=== PATIENT | female | born 1930 | race Caucasian/White ===

== ENCOUNTER → 2017-01-02 | Outpatient (CLI) | payer BC, OTHER ==
[~2017-01-02] MED LIST: ACET-1311 PO; ACET325T96 PO; AMOX500C3 PO; ASPEC81 PO; ATEN-173 PO; ATOR-22 PO; BISA-16 PO; CHOL1000 PO; CHOL100010 PO; DOCU-94 PO; ESCI1TAB6 PO; KFLHP PO; LCTX PO; MECL1TAB40 PO; MIRT15TA PO; ONDA4TAB10 SL; OXYC-57 PO; OXYC-609 PO; OXYC5TAB PO; PANT40TA PO; POLY335019 PO; SIMV40TA4 PO; SNKUDL5 PO; TRAM-10 PO; WARF3TAB PO; WARF4TAB PO
[2017-01-02 12:28] LABS: INR 1.4 (0.9-1.1); PROTHROMBIN TIME (PATIENT) 15.5 SECONDS (9.0-12.0)
== END | disposition home or self-care (01) ==
LOC: C.LABWYN 12:40
PROVIDERS: ATTEND Family Medicine
DX: I82.431 Acute embolism and thrombosis of right popliteal vein (principal)

== ENCOUNTER → 2017-01-07 | Outpatient (CLI) | payer BC ==
[2017-01-07 12:41] LABS: INR 1.7 (0.9-1.1); PROTHROMBIN TIME (PATIENT) 18.1 SECONDS (9.0-12.0)
== END | disposition home or self-care (01) ==
LOC: C.LABWYN 16:39
PROVIDERS: ATTEND Family Medicine
DX: I82.431 Acute embolism and thrombosis of right popliteal vein (principal); Z79.01 Long term (current) use of anticoagulants

== ENCOUNTER 2017-01-08 02:37 | Emergency (ER) | payer BC ==
[~2017-01-08] VITALS: Ht 152.4 cm; Wt 55.2 kg
[~2017-01-08 02:37] MED LIST changes: -ACET-1311 PO; -AMOX500C3 PO; -ATOR-22 PO; -CHOL1000 PO; -DOCU-94 PO; -ESCI1TAB6 PO; -MECL1TAB40 PO; -MIRT15TA PO; -ONDA4TAB10 SL; -OXYC-57 PO; -OXYC-609 PO; -POLY335019 PO; -TRAM-10 PO; -WARF3TAB PO; -WARF4TAB PO
[2017-01-08 02:41] VITALS: TEMP 36.6; Ht 152.4 cm; Wt 55.2 kg
[2017-01-08] MEDS ORDERED: MIRT15TA PO (02:50)
[2017-01-08] MEDS ORDERED: POLY335019 PO (02:50)
[2017-01-08] MEDS ORDERED: OXYC-57 PO (02:52)
[2017-01-08] MEDS ORDERED: CHOL1000 PO (02:53)
[2017-01-08] MEDS ORDERED: DOCU-94 PO (02:56)
[2017-01-08] MEDS ORDERED: ESCI1TAB6 PO (02:56)
[2017-01-08] MEDS ORDERED: ATOR-22 PO (02:56)
[2017-01-08] MEDS ORDERED: MECL1TAB40 PO (02:57)
[2017-01-08] MEDS ORDERED: ACET-1311 PO (02:58)
[2017-01-08] MEDS ORDERED: AMOX500C3 PO (02:59)
[2017-01-08] MEDS ORDERED: SODIUM CHLORIDE 0.9% 500ML 500 ML IV STA (03:00)
[2017-01-08] MEDS ORDERED: ONDANSETRON INJ 2 MG/ML 2 ML VIAL IV STA (03:00)
--- NOTE | 2017-01-08 03:03 | EMERGENCY ROOM VISIT NOTE ---
History Report prepared by Lucioibgeovany: Nena De Leon Under the Supervision of: Dr. Kiran Hernadez M.D. First contact with patient: 02:39 Chief Complaint: GI ASSESSMENT Stated Complaint: VOMITING/DIARRHEA/NAUSEA Nursing Triage Summary: Patient with c/o of Nausea/vomitting/diarrhea since yesterday afternoon. Patient is from the [facility]. History of Present Illness The patient is an 86 year old female who presents to the Emergency Room with complaints of persistent nausea, vomiting and diarrhea that started yesterday evening after she ate dinner. She was brought to the ED via EMS from [facility], where she resides. She reports she has had "non-stop" diarrhea since earlier this evening and is clutching an emesis bag on exam. She denies any recent abdominal pain or traumatic head injuries. The patient admits she is on a daily low dose antibiotics for a history of UTI's. Source of History: patient Onset: yesterday afternoon Position: abdomen Timing: other (persistent) Associated Symptoms: No LOC, No abdominal pain Review of Systems See HPI for pertinent positives & negatives. A total of 10 systems reviewed and were otherwise negative. Past Medical & Surgical Medical Problems: (1) CAD (coronary artery disease) (2) Fall (3) HLD (hyperlipidemia) (4) HTN (hypertension) (5) Hypothyroidism (6) Migraines (7) Normal colonoscopy (8) NSTEMI (non-ST elevated myocardial infarction) (9) UTI (urinary tract infection) Surgical Problems: (1) H/O total hip arthroplasty (2) History of appendectomy (3) History of cataract surgery (4) S/P knee replacement (5) Status post right partial knee replacement Family History No pertinent family history Social History Smoking Status: Never Smoker Alcohol Use: none Drug Use: none Marital Status: Housing Status: half-way Occupation Status: retired Current/Historical Medications Scheduled Aspirin (Aspirin EC Low Dose), 81 MG PO DAILY Atenolol (Tenormin), 12.5 MG PO HS Atorvastatin (Lipitor), 20 MG PO DAILY Cephalexin Monohydrate (Cephalexin), 250 MG PO HS Cholecalciferol (Vitamin D3), 2,000 UNIT PO DAILY Docusate Sodium (Colace), 100 MG PO BID Escitalopram Oxalate (Lexapro), 5 MG PO DAILY Mirtazapine (Remeron), 15 MG PO HS Ondasetron Odt (Zofran Odt), 4 MG SL Q6H Oxycodone/Acetaminophen 5MG/325MG (Percocet 5MG/325MG), 1 TAB PO TID Pantoprazole (Protonix), 40 MG PO HS Polyethylene Glycol 3350 (Miralax), 17 GM PO DAILY Scheduled PRN Acetaminophen (Tylenol), 650 MG PO Q4 PRN for GENERAL DISCOMFORT Amoxicillin (Amoxil), 2,000 MG PO UD PRN for DENTAL APPT Meclizine HCl (Meclizine HCl), 1 TAB PO TID PRN for Dizziness or Vertigo Allergies Coded Allergies: Omeprazole (Unverified Allergy, Unknown, distal edema-none with pantoprozole, 01/08/17) Physical Exam Vital Signs Date Time Temp Pulse Resp B/P Pulse Ox O2 Delivery O2 Flow Rate FiO2 01/08/17 04:00 92 16 118/62 92 Room Air 01/08/17 02:46 93 01/08/17 02:41 36.6 90 16 145/64 95 Room Air Physical Exam GENERAL: Patient is a healthy-appearing well-nourished HEAD: Normocephalic atraumatic EYES: Ocular movements intact pupils equal and react to light OROPHARYNX mucous membranes are moist no exudates present no erythema or edema present NECK: Supple no nuchal rigidity CHEST: Good equal expansion LUNGS: Clear and equal to auscultation CARDIAC: Normal S1 and S2 ABDOMEN: Soft nontender no guarding BACK: No CVA tenderness EXTREMITIES: No pain upon palpation normal muscle strength in all groups no clubbing cyanosis or edema NEURO: Patient is following commands is answering questions appropriately. Alert and oriented x3 Cranial Nerves 2-12 grossly intact Medical Decision & Procedures ER Provider Diagnostic Interpretation: CT the abdomen pelvis: Fluid within nondistended stomach and bowel without wall thickening or surrounding inflammation is nonspecific and may be normal but can also be seen with gastroenteritis in the right clinical setting. No bowel obstruction. No appendicitis or other inflammatory changes of the bowel. Small hiatal hernia. Pancreas is unremarkable. Gallbladder is distended. Possible sludge a tiny stones at the dependent portion of the gallbladder. No wall thickening or surrounding fluid. Fatty liver. No renal calculi. No hydronephrosis. Few small cyst associated with the right and left kidney. Dense calcification involving anterolateral parenchymal of the left kidney measuring 12 mm. Small nonobstructing calyceal's calculus at the left lower renal pole. Left renal scarring at the posterior superior aspect. No obstructive uropathy. Laboratory Results 01/08/17 02:50 Red Blood Count 4.64, Mean Corpuscular Volume 95.9, Mean Corpuscular Hemoglobin 32.3, Mean Corpuscular Hemoglobin Concent 33.7, Mean Platelet Volume 9.5, Neutrophils (%) (Auto) 86.0, Lymphocytes (%) (Auto) 4.3, Monocytes (%) (Auto) 6.0, Eosinophils (%) (Auto) 3.4, Basophils (%) (Auto) 0.1, Neutrophils # (Auto) 10.97, Lymphocytes # (Auto) 0.55, Monocytes # (Auto) 0.77, Eosinophils # (Auto) 0.43, Basophils # (Auto) 0.01 01/08/17 02:50 Test 01/08/17 02:39 01/08/17 02:50 01/08/17 03:08 White Blood Count 12.76 K/uL (4.8-10.8) Red Blood Count 4.64 M/uL (4.2-5.4) Hemoglobin 15.0 g/dL (12.0-16.0) Hematocrit 44.5 % (37-47) Mean Corpuscular Volume 95.9 fL (80-100) Mean Corpuscular Hemoglobin 32.3 pg (25-34) Mean Corpuscular Hemoglobin Concent 33.7 g/dl (32-36) Platelet Count 298 K/uL (130-400) Mean Platelet Volume 9.5 fL (7.4-10.4) Neutrophils (%) (Auto) 86.0 % Lymphocytes (%) (Auto) 4.3 % Monocytes (%) (Auto) 6.0 % Eosinophils (%) (Auto) 3.4 % Basophils (%) (Auto) 0.1 % Neutrophils # (Auto) 10.97 K/uL (1.4-6.5) Lymphocytes # (Auto) 0.55 K/uL (1.2-3.4) Monocytes # (Auto) 0.77 K/uL (0.11-0.59) Eosinophils # (Auto) 0.43 K/uL (0-0.5) Basophils # (Auto) 0.01 K/uL (0-0.2) RDW Standard Deviation 55.0 fL (36.4-46.3) RDW Coefficient of Variation 15.7 % (11.5-14.5) Immature Granulocyte % (Auto) 0.2 % Immature Granulocyte # (Auto) 0.03 K/uL (0.00-0.02) Est Creatinine Clear Calc Drug Dose 34.4 ml/min Estimated GFR () 63.7 Estimated GFR (Non- 55.0 BUN/Creatinine Ratio 22.8 (10-20) Calcium Level 9.4 mg/dl (8.5-10.1) Total Bilirubin 0.7 mg/dl (0.2-1) Direct Bilirubin 0.1 mg/dl (0-0.2) Aspartate Amino Transf (AST/SGOT) 40 U/L (15-37) Alanine Aminotransferase (ALT/SGPT) 50 U/L (12-78) Alkaline Phosphatase 184 U/L (45-117) Total Creatine Kinase 72 U/L (26-192) Creatine Kinase MB 1.9 ng/ml (0.5-3.6) Creatine Kinase MB Ratio 2.6 (0-3.0) Troponin I < 0.015 ng/ml (0-0.045) Total Protein 8.2 gm/dl (6.4-8.2) Albumin 4.3 gm/dl (3.4-5.0) Lipase 90 U/L (73-393) Bedside Hemoglobin 15.6 g/dl (12.0-16.0) Bedside Hematocrit 46 % (37-47) Bedside Sodium 145 mEq/L (135-144) Bedside Potassium 3.3 mEq/L (3.3-5.0) Bedside Chloride 104 mEq/L (101-112) Bedside Total CO2 23 mEq/l (24-31) Anion Gap 21.0 mmol/L (16-25) Bedside Blood Urea Nitrogen 23 mg/dl (7-18) Bedside Creatinine 0.6 mg/dl (0.6-1.3) Bedside Glucose (other) 198 mg/dl (70-99) Bedside Ionized Calcium (Olivia) 1.09 mmol/l (1.12-1.32) Labs reviewed by ED physician. Medications Administered Medications (Trade) Dose Ordered Sig/Jamilah Route Start Time Stop Time Status Last Admin Dose Admin Sodium Chloride (Nss 500ml) 500 ml @ 999 mls/hr Q31M STAT IV 01/08/17 03:00 01/08/17 03:30 DC 01/08/17 03:09 999 MLS/HR Ondansetron HCl (Zofran Inj) 4 mg NOW STAT IV 01/08/17 03:00 01/08/17 03:03 DC 01/08/17 03:07 4 MG Potassium Chloride ([place] Ciel Elix) 40 meq NOW STAT PO 01/08/17 03:15 01/08/17 03:16 DC 01/08/17 03:56 40 MEQ ECG Indication: vomiting Rate (beats per minute): 93 Rhythm: sinus rhythm Findings: PVC, no acute ischemic change ED Course 0257: Past medical records reviewed. The patient was evaluated in room B6. A complete history and physical examination was performed. 0300: Zofran 4 mg IV, NSS 500 ml @ 999 mls/hr IV. 0315: Potassium Chloride 40 meq PO. Medical Decision Prior records/ancillary studies reviewed. Triage Nursing notes reviewed. Additional history obtained from the family. The patient's history was concerning for nausea, vomiting, diarrhea, and abdominal pain. Differential diagnosis: Etiologies such as gastroenteritis, food borne illness, infections, appendicitis , diverticulitis, inflammatory bowel disease, obstruction, GI bleed, biliary pathology, as well as others were entertained. This is an 86-year-old female who presents emergency department complaining of vomiting and diarrhea like symptoms. Despite the diarrhea and the multiple bouts today. The patient has been unable to produce a stool sample here in the emergency department. In addition serial abdominal examinations were performed on the patient in the emergency department and at no time did the patient exhibit a surgical abdomen or even abdominal tenderness or rate based on these findings an IV was established, patient given normal saline bolus as well as Zofran. Repeat examination revealed improvement patient's symptoms. In addition the patient was also able to keep down oral potassium. I gave the patient the option of being admitted to the hospital however she would like to try it at home. I stressed the need for a stool sample and she was written for a prescription for a stool sample. The patient was given oral Zofran to use at home however I stressed the need to return if she develops severe abdominal pain , weakness, fevers. Patient was in agreement with the treatment plan. I also stressed the use of probiotic yogurt for the diarrhea. Impression Primary Impression: Gastroenteritis Scribe Attestation The scribe's documentation has been prepared under my direction and personally reviewed by me in its entirety. I confirm that the note above accurately reflects all work, treatment, procedures, and medical decision making performed by me. Departure Information Prescriptions Ondasetron Odt (ZOFRAN ODT) 4 Mg Tab 4 MG SL Q6H for Nausea, #6 TAB Prov: Kiran Hernadez MD 01/08/17 Referrals Lachelle Regalado D.O. (PCP) Patient Instructions My [facility]
[2017-01-08 03:10] LABS: BASO % 0.1 %; BASO ABS # 0.01 K/uL (0-0.2); COMPLETE YES; EOS % 3.4 %; HEMATOCRIT 44.5 % (37-47); IG% 0.2 %; LYMPH % 4.3 %; LYMPH ABS # 0.55 K/uL (1.2-3.4); MEAN CELL VOLUME 95.9 fL (80-100); MEAN CORPUSCULAR HEMOGLOBIN 32.3 pg (25-34); MEAN CORPUSCULAR HGB CONC 33.7 g/dl (32-36); MEAN PLATELET VOLUME 9.5 fL (7.4-10.4); PLATELET COUNT 298 K/uL (130-400); RED BLOOD COUNT 4.64 M/uL (4.2-5.4); WHITE BLOOD COUNT 12.76 K/uL (4.8-10.8)
[2017-01-08] MEDS ORDERED: OPTIRAY 320 IV PRN (03:15)
[2017-01-08] MEDS ORDERED: POTASSIUM CHLORIDE 20 MEQ/15 ML UDC PO STA (03:15)
[2017-01-08 03:25] LABS: ISTAT CREATININE 0.6 mg/dl (0.6-1.3); ISTAT HEMOGLOBIN 15.6 g/dl (12.0-16.0); ISTAT IONIZED CALCIUM 1.09 mmol/l (1.12-1.32)
[2017-01-08 03:30] LABS: ALT/SGPT 50 U/L (12-78); AST/SGOT 40 U/L (15-37); BLOOD UREA NITROGEN 22 mg/dl (7-18); BUN/CREATININE RATIO 22.8 (10-20); CALCIUM 9.4 mg/dl (8.5-10.1); CARBON DIOXIDE 23 mmol/L (21-32); CHLORIDE 107 mmol/L (98-107); CREATININE 0.95 mg/dl (0.60-1.20); GLUCOSE 189 mg/dl (70-99); POTASSIUM 3.4 mmol/L (3.5-5.1); SODIUM 146 mmol/L (136-145)
[2017-01-08 03:35] LABS: ALKALINE PHOSPHATASE 184 U/L (45-117); CKMB/CK RATIO 2.6 (0-3.0)
[2017-01-08] MEDS ORDERED: ONDA4TAB10 SL (04:32)
[2017-01-08] MEDS ORDERED: ONDANSETRON HOME PACK 4MG OD TAB PO ONE (04:45)
[2017-01-08 05:04] VITALS: BP 123/67; PULSE 100; O2SAT 92
--- NOTE | 2017-01-08 07:02 | DIAGNOSTIC IMAGING REPORT ---
CT ABD/PELVIS IV CONTRAST ONLY CLINICAL HISTORY: Abdominal pain and diffuse vomiting COMPARISON STUDY: 07/22/2016 TECHNIQUE: Following the IV administration of 92 mL of Optiray-320, CT scan of the abdomen and pelvis was performed from the lung bases to the proximal femurs. Images are reviewed in the axial, sagittal, and coronal planes. IV contrast was administered without complication. CT DOSE: 323.36 mGy.cm FINDINGS: Lower chest: The heart is normal in size and configuration, without pericardial effusion. The lung bases and pleural spaces are clear. Liver: There is mild hepatic steatosis. No focal masses are visualized. Gallbladder: There is minimal gallbladder distention. There is trace sludge at the dependent gallbladder. Spleen: Normal in size and attenuation. Pancreas: Unremarkable. Adrenal glands: Unremarkable. Kidneys: There are left renal calculi present, the largest of which measures 1 cm. There is left renal cortical scarring. There is a 14 mm lower pole left renal cyst. There is a 6 mm right renal cyst. There is no hydronephrosis. Bowel: There are no findings to indicate acute appendicitis. There are no findings to indicate acute diverticulitis. There are multiple fluid-filled bowel loops. There are no transition zones indicate a high-grade bowel obstruction. Peritoneum: There is no intraperitoneal free air or abdominal ascites. Vasculature: The abdominal aorta is normal in course and caliber. Adenopathy: None. Pelvic viscera: The uterus appears surgically absent Skeletal structures: There are postsurgical changes of a bipolar left hip arthroplasty. There are postsurgical changes present within the lumbar spine. IMPRESSION: 1. Left-sided nephrolithiasis. No evidence of hydronephrosis 2. Mildly distended gallbladder with suspected trace sludge/calculi 3. Fluid-filled small bowel loops, but no current evidence of obstruction. 4. No evidence of acute appendicitis. No evidence of acute diverticulitis. Electronically signed by: Eliel Adkins M.D. 01/08/2017 7:01 AM Dictated Date/Time: 01/08/2017 6:50 AM
[2017-03-15] MEDS ORDERED: TRAM-10 PO (17:39)
[2017-03-15] MEDS ORDERED: WARF3TAB PO (17:39)
== END 2017-01-08 05:05 | disposition home or self-care (01) ==
LOC: EDBD 02:37 → C.EDB 02:38
DX: K52.9 Noninfective gastroenteritis and colitis, unspecified (principal); I25.10 Atherosclerotic heart disease of native coronary artery without angina pectoris; E78.5 Hyperlipidemia, unspecified; I10 Essential (primary) hypertension; E03.9 Hypothyroidism, unspecified; I25.2 Old myocardial infarction; Z96.643 Presence of artificial hip joint, bilateral; Z96.659 Presence of unspecified artificial knee joint; Z79.82 Long term (current) use of aspirin

== ENCOUNTER → 2017-01-16 | Outpatient (CLI) | payer BC ==
[~2017-01-16] MED LIST changes: +ACET-1311 PO; -ACET325T96 PO; +AMOX500C3 PO; +ATOR-22 PO; -BISA-16 PO; +CHOL1000 PO; -CHOL100010 PO; +CITA20TA4 PO; +DOCU-94 PO; +ESCI1TAB6 PO; +KFL/250 PO; -LCTX PO; +MECL1TAB40 PO; +MIRT15TA PO; +ONDA4TAB10 SL; +OXYC-57 PO; +OXYC-609 PO; -OXYC5TAB PO; +POLY335019 PO; -SIMV40TA4 PO; -SNKUDL5 PO; +TRAM-10 PO; +WARF3TAB PO; +WARF4TAB PO
[2017-01-16 13:38] LABS: INR 2.2 (0.9-1.1); PROTHROMBIN TIME (PATIENT) 24.8 SECONDS (9.0-12.0)
== END | disposition home or self-care (01) ==
LOC: C.LABWYN 06:32
PROVIDERS: ATTEND Family Medicine
DX: I82.409 Acute embolism and thrombosis of unspecified deep veins of unspecified lower extremity (principal)

== ENCOUNTER → 2017-01-23 | Outpatient (CLI) | payer BC ==
[~2017-01-23] MED LIST changes: -CITA20TA4 PO; -KFL/250 PO
[2017-01-23 12:12] LABS: INR 3.1 (0.9-1.1); PROTHROMBIN TIME (PATIENT) 35.3 SECONDS (9.0-12.0)
== END | disposition home or self-care (01) ==
LOC: C.LABWYN 12:21
PROVIDERS: ATTEND Family Medicine
DX: Z51.81 Encounter for therapeutic drug level monitoring (principal); Z79.01 Long term (current) use of anticoagulants

== ENCOUNTER → 2017-01-30 | Outpatient (CLI) | payer BC ==
[~2017-01-30] MED LIST changes: +CITA20TA4 PO; +KFL/250 PO
[2017-01-30 12:09] LABS: INR 2.2 (0.9-1.1); PROTHROMBIN TIME (PATIENT) 24.8 SECONDS (9.0-12.0)
== END | disposition home or self-care (01) ==
LOC: C.LABWYN 13:42
PROVIDERS: ATTEND Internal Medicine
DX: Z00.00 Encounter for general adult medical examination without abnormal findings (principal)

== ENCOUNTER → 2017-02-20 | Outpatient (CLI) | payer BC ==
[2017-02-20 12:11] LABS: INR 1.7 (0.9-1.1); PROTHROMBIN TIME (PATIENT) 18.4 SECONDS (9.0-12.0)
== END | disposition home or self-care (01) ==
LOC: C.LABWYN 06:20
PROVIDERS: ATTEND Internal Medicine
DX: Z51.81 Encounter for therapeutic drug level monitoring (principal); Z79.01 Long term (current) use of anticoagulants

== ENCOUNTER → 2017-03-13 | Outpatient (CLI) | payer BC ==
[2017-03-13 12:24] LABS: INR 1.9 (0.9-1.1); PROTHROMBIN TIME (PATIENT) 20.4 SECONDS (9.0-12.0)
== END | disposition home or self-care (01) ==
LOC: C.LABWYN 12:48
PROVIDERS: ATTEND Internal Medicine
DX: I82.409 Acute embolism and thrombosis of unspecified deep veins of unspecified lower extremity (principal); C22.0 Liver cell carcinoma

== ENCOUNTER 2017-03-15 17:15 | Emergency (ER) | payer BC ==
[~2017-03-15] VITALS: Ht 152.4 cm; Wt 61.9 kg
[~2017-03-15 17:15] MED LIST changes: -ACET-1311 PO; -AMOX500C3 PO; -ASPEC81 PO; -ATEN-173 PO; -ATOR-22 PO; -CHOL1000 PO; -CITA20TA4 PO; -DOCU-94 PO; -KFL/250 PO; -MECL1TAB40 PO; -MIRT15TA PO; -OXYC-609 PO; -PANT40TA PO; -POLY335019 PO; -TRAM-10 PO; -WARF3TAB PO; -WARF4TAB PO
[2017-03-15 17:19] VITALS: TEMP 36.8; Ht 152.4 cm; Wt 61.9 kg
[2017-03-15] MEDS ORDERED: WARF4TAB PO (17:39)
[2017-03-15] MEDS ORDERED: OXYC-609 PO (17:39)
[2017-03-15] MEDS ORDERED: ONDA4TAB10 SL (17:39)
--- NOTE | 2017-03-15 17:56 | DIAGNOSTIC IMAGING REPORT ---
SINGLE VIEW PELVIS; SINGLE VIEW LEFT HIP CLINICAL HISTORY: Left pelvic pain. FINDINGS: An AP pelvic radiograph and an AP view of the left hip are compared to study dated 05/17/2016. The skeletal structures are osteopenic. There is no radiographic evidence of fracture. A left hip arthroplasty is in near-anatomic alignment. No periprosthetic lucency is identified. Heterotopic bone formation is again seen superior to the greater trochanter of the left femur. Moderate arthritic change is seen in the right hip. There is degenerative sclerosis of the pubic symphysis and sacroiliac joints. Lumbosacral spondylosis and fusion is partially imaged. There is a nonobstructed abdominal bowel gas pattern. The overlying soft tissues are within normal limits. IMPRESSION: No acute bony abnormality is seen in the hips or pelvis. Electronically signed by: Souleymane Saleem M.D. 03/15/2017 5:55 PM Dictated Date/Time: 03/15/2017 5:53 PM
--- NOTE | 2017-03-15 19:51 | DIAGNOSTIC IMAGING REPORT ---
CT SCAN OF THE LUMBAR SPINE WITHOUT IV CONTRAST CLINICAL HISTORY: Chronic low back pain. COMPARISON STUDY: Abdominal CT dated 01/08/[address] scan of the lumbar spine dated 01/12/2008. TECHNIQUE: CT scan of the lumbar spine is performed from the lower thoracic spine to the sacrum. Images are reviewed in the axial, sagittal, and coronal planes. IV contrast was not administered for this examination. CT DOSE: 584.87 mGy.cm FINDINGS: The skeletal structures are osteopenic. There is no evidence of fracture or malalignment. Vertebral body height is maintained throughout the lumbar spine. There is minimal anterolisthesis at L4-L5, similar to previous. There are postoperative changes from laminectomy and posterior fusion at L4-L5, unchanged. The remaining spinous processes and the transverse processes are intact. No lytic or blastic lesions are seen. There is no evidence of spondylolysis. There has been discectomy at L4-L5. The remaining disc spaces appear preserved. No large disc herniation is identified. Moderate facet arthropathy is noted in the mid to lower lumbar region. The visualized sacrum and bony pelvis appear intact. There is moderate atherosclerotic calcification of the abdominal aorta which is normal in caliber. The paraspinous soft tissues are within normal limits, noting mild fatty atrophy of the paraspinous musculature. Postoperative change is again seen posteriorly at L4-L5. There are numerous nonobstructing left renal calculi which measure up to 13 mm. No hydronephrosis is seen. IMPRESSION: 1. No acute bony abnormality is seen involving the lumbosacral spine. 2. Osteopenia with postoperative and spondylotic change as above. 3. Nonobstructing left renal calculi. Dictated: 03/15/2017 5:58 PM Transcribed: 03/15/2017 7:51 PM HEATH_Santy Electronically signed by: Souleymane Saleem M.D. 03/15/2017 7:52 PM Dictated Date/Time: 03/15/2017 5:58 PM
--- NOTE | 2017-03-15 20:21 | EMERGENCY ROOM VISIT NOTE ---
History Report prepared by Eldon: Rekha Navarro Under the Supervision of: Dr. Kiran Oden D.O. First contact with patient: 17:27 Chief Complaint: HIP PAIN Stated Complaint: LF HIP PAIN History of Present Illness The patient is an 86 year old female who presents to the Emergency Room with complaints of persistent lower back pain that worsened over the last few days. She currently rates her discomfort as a 10/10 in severity. The patient states that she has a history of two lower back surgeries and a right knee replacement. She states that her pain radiates from her lower back down into her left leg. The patient denies any recent injury. She states that she has been in bed most of the time or in a recliner, noting that she has not been moving much due to the pain. Source of History: patient Onset: past few days Position: back (lower) Symptom Intensity: 10/10 Timing: worsening, other (persistent) Note: Associated Symptoms: left leg pain Review of Systems See HPI for pertinent positives & negatives. A total of 10 systems reviewed and were otherwise negative. Past Medical & Surgical Medical Problems: (1) CAD (coronary artery disease) (2) Fall (3) HLD (hyperlipidemia) (4) HTN (hypertension) (5) Hypothyroidism (6) Migraines (7) Normal colonoscopy (8) NSTEMI (non-ST elevated myocardial infarction) (9) UTI (urinary tract infection) Surgical Problems: (1) H/O total hip arthroplasty (2) History of appendectomy (3) History of cataract surgery (4) S/P knee replacement (5) Status post right partial knee replacement Family History No pertinent family history Social History Smoking Status: Never Smoker Alcohol Use: none Drug Use: none Marital Status: Housing Status: long-term Occupation Status: retired Current/Historical Medications Scheduled Aspirin (Aspirin EC Low Dose), 81 MG PO QAM Atenolol (Tenormin), 12.5 MG PO HS Atorvastatin (Lipitor), 20 MG PO HS Cephalexin Monohydrate (Cephalexin), 250 MG PO HS Cholecalciferol (Vitamin D3), 2,000 UNIT PO HS Docusate Sodium (Colace), 100 MG PO BID Escitalopram Oxalate (Lexapro), 5 MG PO QAM Mirtazapine (Remeron), 15 MG PO HS Pantoprazole (Protonix), 40 MG PO HS Polyethylene Glycol 3350 (Miralax), 17 GM PO QAM Warfarin Sodium (Coumadin), 3 MG PO 6XWK Warfarin Sodium (Coumadin), 4 MG PO WK Scheduled PRN Acetaminophen (Tylenol), 650 MG PO Q4H PRN for GENERAL DISCOMFORT Amoxicillin (Amoxil), 2,000 MG PO UD PRN for DENTAL APPT Meclizine HCl (Meclizine HCl), 1 TAB PO TID PRN for Dizziness or Vertigo Ondasetron Odt (Zofran Odt), 4 MG SL Q6H PRN for Nausea or Vomiting Oxycodone HCl (Oxycodone HCl), 7.5 MG PO Q6H PRN for Pain Tramadol (Ultram), 50 MG PO Q4H PRN for Pain Allergies Coded Allergies: Omeprazole (Verified Allergy, Unknown, distal edema-none with pantoprozole , 03/15/17) Physical Exam Vital Signs Date Time Temp Pulse Resp B/P Pulse Ox O2 Delivery O2 Flow Rate FiO2 03/15/17 18:51 74 109/58 93 03/15/17 17:19 36.8 67 18 119/65 93 Room Air Physical Exam CONSTITUTIONAL/VITAL SIGNS: Reviewed / noted above. GENERAL: Non-toxic in appearance. INTEGUMENTARY: Warm, dry, and [place]. HEAD: Normocephalic. EYES: without scleral icterus or trauma. ENT/OROPHARYNX: clear and moist. LYMPHADENOPATHY/NECK: Is supple without lymphadenopathy or meningismus. RESPIRATORY: Lungs clear and equal. CARDIOVASCULAR: Regular rate and rhythm. GI/ABDOMEN: Soft and nontender. No organomegaly or pulsatile mass. No rebound or guarding. Normal bowel sounds. EXTREMITIES: Discomfort noted to movement of left hip. Warm and well perfused. BACK: Discomfort with sitting position, tenderness to the lumbar region, no obvious palpable abnormality, no visible abnormality. No CVA tenderness. NEUROLOGICAL: Intact without focal deficits. PSYCHIATRIC: normal affect. MUSCULOSKELETAL: Normally developed with good muscle tone. Medical Decision & Procedures ER Provider Diagnostic Interpretation: Radiology results as stated below per my review and radiologist interpretation: SINGLE VIEW PELVIS; SINGLE VIEW LEFT HIP CLINICAL HISTORY: Left pelvic pain. FINDINGS: An AP pelvic radiograph and an AP view of the left hip are compared to study dated 05/17/2016. The skeletal structures are osteopenic. There is no radiographic evidence of fracture. A left hip arthroplasty is in near-anatomic alignment. No periprosthetic lucency is identified. Heterotopic bone formation is again seen superior to the greater trochanter of the left femur. Moderate arthritic change is seen in the right hip. There is degenerative sclerosis of the pubic symphysis and sacroiliac joints. Lumbosacral spondylosis and fusion is partially imaged. There is a nonobstructed abdominal bowel gas pattern. The overlying soft tissues are within normal limits. IMPRESSION: No acute bony abnormality is seen in the hips or pelvis. Electronically signed by: Souleymane Saleem M.D. 03/15/2017 5:55 PM Dictated Date/Time: 03/15/2017 5:[address] SCAN OF THE LUMBAR SPINE WITHOUT IV CONTRAST CLINICAL HISTORY: Chronic low back pain. COMPARISON STUDY: Abdominal CT dated 01/08/[address] scan of the lumbar spine dated 01/12/2008. TECHNIQUE: CT scan of the lumbar spine is performed from the lower thoracic spine to the sacrum. Images are reviewed in the axial, sagittal, and coronal planes. IV contrast was not administered for this examination. CT DOSE: 584.87 mGy.cm FINDINGS: The skeletal structures are osteopenic. There is no evidence of fracture or malalignment. Vertebral body height is maintained throughout the lumbar spine. There is minimal anterolisthesis at L4-L5, similar to previous. There are postoperative changes from laminectomy and posterior fusion at L4-L5, unchanged. The remaining spinous processes and the transverse processes are intact. No lytic or blastic lesions are seen. There is no evidence of spondylolysis. There has been discectomy at L4-L5. The remaining disc spaces appear preserved. No large disc herniation is identified. Moderate facet arthropathy is noted in the mid to lower lumbar region. The visualized sacrum and bony pelvis appear intact. There is moderate atherosclerotic calcification of the abdominal aorta which is normal in caliber. The paraspinous soft tissues are within normal limits, noting mild fatty atrophy of the paraspinous musculature. Postoperative change is again seen posteriorly at L4-L5. There are numerous nonobstructing left renal calculi which measure up to 13 mm. No hydronephrosis is seen. IMPRESSION: 1. No acute bony abnormality is seen involving the lumbosacral spine. 2. Osteopenia with postoperative and spondylotic change as above. 3. Nonobstructing left renal calculi. Dictated: 03/15/2017 5:58 PM Transcribed: 03/15/2017 7:51 PM Kaveh Electronically signed by: Souleymane Saleem M.D. 03/15/2017 7:52 PM Dictated Date/Time: 03/15/2017 5:58 PM ED Course 1730: Previous medical records were reviewed. The patient was evaluated in room B4B. A complete history and physical examination was performed. 2018: I reevaluated the patient and she is resting comfortably. I discussed the exam findings with her and I discussed the treatment plan. She verbalized complete understanding and agreement. She is ready to go home. Medical Decision Differential diagnosis: Etiologies such as fracture, dislocation, neurovascular compromise, compartment syndrome, soft tissue injury, as well as others were entertained. This is a 86-year-old female who presents to the ED with a chief complaint of low back and left hip pain. The patient states that she has had the symptoms for a while. She lives alone local nursing facility. The patient reports that her symptoms have increased over the past several days. She has had some x- rays did not reveal any abnormality. She is currently on Percocet. The patient states that she has been lying in her bed more than being upright and this has increased her pain. She denies any fevers or chills. Denies any urinary symptoms or abdominal pains. Her pain is worse with movement and sitting up in bed. Exam revealed some tenderness to palpation the lumbar region. She also has some discomfort with movement of the left hip. X-ray of the left hip did not show any acute abnormality. CT scan lumbar spine reveals no acute process. The patient was told the results the test. She is felt to be stable for discharge. She'll be discharged back to the nursing facility. Impression Primary Impression: Low back pain Scribe Attestation The scribe's documentation has been prepared under my direction and personally reviewed by me in its entirety. I confirm that the note above accurately reflects all work, treatment, procedures, and medical decision making performed by me. Departure Information Dispostion Home / Self-Care [facility] Patient Instructions My [facility] Additional Instructions Follow-up with your doctor for further care and evaluation in 1-2 days. Return to the emergency department for worsening or new symptoms or any concerns. You have been examined and treated today on an emergency basis only. This is not a substitute for, or an effort to provide, complete comprehensive medical care. It is impossible to recognize and treat all injuries or illnesses in a single emergency department visit. It is therefore important that you follow up closely with your doctor. Call as soon as possible for an appointment. Physical therapy may be beneficial.
[2017-03-15 20:40] VITALS: BP 124/72; PULSE 84; O2SAT 96
[2017-08-22] MEDS ORDERED: POLY335019 PO (02:50)
[2017-08-22] MEDS ORDERED: MIRT15TA PO (02:50)
[2017-08-22] MEDS ORDERED: CHOL1000 PO (02:53)
[2017-08-22] MEDS ORDERED: DOCU-94 PO (02:56)
[2017-08-22] MEDS ORDERED: ATOR-22 PO (02:56)
[2017-08-22] MEDS ORDERED: MECL1TAB40 PO (02:57)
[2017-08-22] MEDS ORDERED: ACET-1311 PO (02:58)
[2017-08-22] MEDS ORDERED: AMOX500C3 PO (02:59)
[2017-08-22] MEDS ORDERED: ATEN-173 PO (13:23)
[2017-08-22] MEDS ORDERED: ASPEC81 PO (13:57)
== END 2017-03-15 20:40 | disposition home or self-care (01) ==
LOC: EDBD 17:15 → C.EDB 17:16
DX: M54.5 Low back pain (principal); Z96.651 Presence of right artificial knee joint; I25.10 Atherosclerotic heart disease of native coronary artery without angina pectoris; E78.5 Hyperlipidemia, unspecified; I25.2 Old myocardial infarction; Z87.440 Personal history of urinary (tract) infections; Z79.82 Long term (current) use of aspirin

== ENCOUNTER → 2017-03-25 | Outpatient (CLI) | payer BC ==
[~2017-03-25] MED LIST changes: +ACET-1311 PO; +AMOX500C3 PO; +ASPEC81 PO; +ATEN-173 PO; +ATOR-22 PO; +CHOL1000 PO; +CITA20TA4 PO; +DOCU-94 PO; +KFL/250 PO; +MECL1TAB40 PO; +MIRT15TA PO; +OXYC-609 PO; +PANT40TA PO; +POLY335019 PO; +TRAM-10 PO; +WARF3TAB PO; +WARF4TAB PO
[2017-03-25 13:08] LABS: PROTHROMBIN TIME (PATIENT) 46.3 SECONDS (9.0-12.0)
[2017-03-25 13:19] LABS: INR 4.1 (0.9-1.1)
== END | disposition home or self-care (01) ==
LOC: C.LABWYN 10:19
PROVIDERS: ATTEND Internal Medicine
DX: I82.409 Acute embolism and thrombosis of unspecified deep veins of unspecified lower extremity (principal)

== ENCOUNTER → 2017-03-26 | Outpatient (CLI) | payer BC ==
[2017-03-26 06:42] LABS: INR 2.9 (0.9-1.1)
== END | disposition home or self-care (01) ==
LOC: C.LABWYN 10:02
PROVIDERS: ATTEND Internal Medicine
DX: I82.409 Acute embolism and thrombosis of unspecified deep veins of unspecified lower extremity (principal); C22.0 Liver cell carcinoma

== ENCOUNTER → 2017-03-28 | Outpatient (CLI) | payer BC ==
[2017-03-28 09:33] LABS: INR 2.1 (0.9-1.1); PROTHROMBIN TIME (PATIENT) 23.3 SECONDS (9.0-12.0)
== END | disposition home or self-care (01) ==
LOC: C.LABWYN 08:35
PROVIDERS: ATTEND Internal Medicine
DX: I82.409 Acute embolism and thrombosis of unspecified deep veins of unspecified lower extremity (principal)

== ENCOUNTER → 2017-04-03 | Outpatient (CLI) | payer BC ==
[~2017-04-03] MED LIST changes: -CITA20TA4 PO; -KFL/250 PO; -OXYC-57 PO
[2017-04-03 12:34] LABS: INR 2.9 (0.9-1.1); PROTHROMBIN TIME (PATIENT) 32.2 SECONDS (9.0-12.0)
== END | disposition home or self-care (01) ==
LOC: C.LABWYN 06:18
PROVIDERS: ATTEND Internal Medicine
DX: I82.409 Acute embolism and thrombosis of unspecified deep veins of unspecified lower extremity (principal)

== ENCOUNTER → 2017-04-17 | Outpatient (CLI) | payer BC ==
[~2017-04-17] MED LIST changes: +CITA20TA4 PO; +KFL/250 PO; +OXYC-57 PO
[2017-04-17 12:17] LABS: INR 1.4 (0.9-1.1); PROTHROMBIN TIME (PATIENT) 15.4 SECONDS (9.0-12.0)
== END | disposition home or self-care (01) ==
LOC: C.LABWYN 12:02
PROVIDERS: ATTEND Internal Medicine
DX: I48.91 Unspecified atrial fibrillation (principal); Z86.718 Personal history of other venous thrombosis and embolism

== ENCOUNTER → 2017-04-24 | Outpatient (CLI) | payer BC ==
[2017-04-24 12:51] LABS: INR 2.8 (0.9-1.1); PROTHROMBIN TIME (PATIENT) 30.8 SECONDS (9.0-12.0)
== END | disposition home or self-care (01) ==
LOC: C.LABWYN 14:43
PROVIDERS: ATTEND Internal Medicine
DX: Z51.81 Encounter for therapeutic drug level monitoring (principal); Z79.01 Long term (current) use of anticoagulants; Z86.718 Personal history of other venous thrombosis and embolism

== ENCOUNTER → 2017-05-08 | Outpatient (CLI) | payer BC ==
[~2017-05-08] MED LIST changes: -CITA20TA4 PO; -KFL/250 PO; -OXYC-57 PO
[2017-05-08 12:40] LABS: PROTHROMBIN TIME (PATIENT) 46.5 SECONDS (9.0-12.0)
[2017-05-08 12:42] LABS: INR 4.1 (0.9-1.1)
== END | disposition home or self-care (01) ==
LOC: C.LABWYN 13:27
PROVIDERS: ATTEND Internal Medicine
DX: I48.91 Unspecified atrial fibrillation (principal); Z86.718 Personal history of other venous thrombosis and embolism

== ENCOUNTER → 2017-05-10 | Outpatient (CLI) | payer BC ==
[2017-05-10 09:20] LABS: INR 2.5 (0.9-1.1)
== END | disposition home or self-care (01) ==
LOC: C.LAB 08:48
PROVIDERS: ATTEND Internal Medicine
DX: R35.0 Frequency of micturition (principal); I48.91 Unspecified atrial fibrillation

== ENCOUNTER → 2017-05-13 | Outpatient (CLI) | payer BC ==
[2017-05-13 12:38] LABS: INR 1.6 (0.9-1.1); PROTHROMBIN TIME (PATIENT) 17.4 SECONDS (9.0-12.0)
== END | disposition home or self-care (01) ==
LOC: C.LABWYN 17:43
PROVIDERS: ATTEND Internal Medicine
DX: I48.91 Unspecified atrial fibrillation (principal); Z86.718 Personal history of other venous thrombosis and embolism

== ENCOUNTER → 2017-05-20 | Outpatient (CLI) | payer BC ==
[2017-05-20 12:29] LABS: INR 2.7 (0.9-1.1); PROTHROMBIN TIME (PATIENT) 30.4 SECONDS (9.0-12.0)
== END | disposition home or self-care (01) ==
LOC: C.LABWYN 14:42
PROVIDERS: ATTEND Internal Medicine
DX: Z51.81 Encounter for therapeutic drug level monitoring (principal); Z79.01 Long term (current) use of anticoagulants

== ENCOUNTER → 2017-05-27 | Outpatient (CLI) | payer BC ==
[2017-05-27 12:28] LABS: INR 2.9 (0.9-1.1); PROTHROMBIN TIME (PATIENT) 31.9 SECONDS (9.0-12.0)
== END | disposition home or self-care (01) ==
LOC: C.LABWYN 13:06
PROVIDERS: ATTEND Internal Medicine
DX: I48.91 Unspecified atrial fibrillation (principal)

== ENCOUNTER → 2017-06-03 | Outpatient (CLI) | payer BC ==
[2017-06-03 13:18] LABS: HEMATOCRIT 35.3 % (37-47); MEAN CELL VOLUME 98.6 fL (80-100); MEAN CORPUSCULAR HEMOGLOBIN 28.8 pg (25-34); MEAN CORPUSCULAR HGB CONC 29.2 g/dl (32-36); MEAN PLATELET VOLUME 9.2 fL (7.4-10.4); PLATELET COUNT 224 K/uL (130-400); RED BLOOD COUNT 3.58 M/uL (4.2-5.4); WHITE BLOOD COUNT 5.28 K/uL (4.8-10.8)
[2017-06-03 13:24] LABS: PROTHROMBIN TIME (PATIENT) 33.9 SECONDS (9.0-12.0)
[2017-06-03 13:31] LABS: BLOOD UREA NITROGEN 20 mg/dl (7-18); BUN/CREATININE RATIO 35.7 (10-20); CALCIUM 8.4 mg/dl (8.5-10.1); CARBON DIOXIDE 29 mmol/L (21-32); CHLORIDE 115 mmol/L (98-107); CREATININE 0.57 mg/dl (0.60-1.20); GLUCOSE 72 mg/dl (70-99); POTASSIUM 3.9 mmol/L (3.5-5.1); SODIUM 148 mmol/L (136-145)
== END | disposition home or self-care (01) ==
LOC: C.LABWYN 10:16
PROVIDERS: ATTEND Nurse Practitioner Adult Health
DX: M81.0 Age-related osteoporosis without current pathological fracture (principal); R53.83 Other fatigue; E03.9 Hypothyroidism, unspecified; I48.91 Unspecified atrial fibrillation

== ENCOUNTER → 2017-06-11 | Outpatient (CLI) | payer BC ==
[2017-06-11 07:57] LABS: INR 2.8 (0.9-1.1); PROTHROMBIN TIME (PATIENT) 31.5 SECONDS (9.0-12.0)
== END | disposition home or self-care (01) ==
LOC: C.LABWYN 07:36
PROVIDERS: ATTEND Dentist Oral and Maxillofacial Surgery
DX: K03.81 Cracked tooth (principal); K02.62 Dental caries on smooth surface penetrating into dentin

== ENCOUNTER → 2017-06-17 | Outpatient (CLI) | payer BC ==
[2017-06-17 12:41] LABS: INR 2.5 (0.9-1.1); PROTHROMBIN TIME (PATIENT) 27.7 SECONDS (9.0-12.0)
[2017-06-17 13:00] LABS: HEMATOCRIT 34.9 % (37-47); MEAN CELL VOLUME 96.4 fL (80-100); MEAN CORPUSCULAR HGB CONC 30.1 g/dl (32-36); MEAN PLATELET VOLUME 9.2 fL (7.4-10.4); PLATELET COUNT 227 K/uL (130-400); RED BLOOD COUNT 3.62 M/uL (4.2-5.4)
[2017-06-17 13:15] LABS: BLOOD UREA NITROGEN 12 mg/dl (7-18); BUN/CREATININE RATIO 19.2 (10-20); CALCIUM 8.3 mg/dl (8.5-10.1); CARBON DIOXIDE 24 mmol/L (21-32); CHLORIDE 115 mmol/L (98-107); CREATININE 0.62 mg/dl (0.60-1.20); GLUCOSE 85 mg/dl (70-99); POTASSIUM 3.5 mmol/L (3.5-5.1); SODIUM 148 mmol/L (136-145)
== END | disposition home or self-care (01) ==
LOC: C.LABWYN 15:19
PROVIDERS: ATTEND Internal Medicine
DX: I48.91 Unspecified atrial fibrillation (principal); Z86.718 Personal history of other venous thrombosis and embolism

== ENCOUNTER → 2017-06-24 | Outpatient (CLI) | payer BC ==
[2017-06-24 12:32] LABS: INR 3.4 (0.9-1.1); PROTHROMBIN TIME (PATIENT) 38.1 SECONDS (9.0-12.0)
== END | disposition home or self-care (01) ==
LOC: C.LABWYN 12:47
PROVIDERS: ATTEND Internal Medicine
DX: I48.91 Unspecified atrial fibrillation (principal)

== ENCOUNTER → 2017-06-25 | Outpatient (CLI) | payer BC ==
[2017-06-25 08:26] LABS: INR 3.2 (0.9-1.1)
== END | disposition home or self-care (01) ==
LOC: C.LABWYN 07:56
PROVIDERS: ATTEND Internal Medicine
DX: K03.81 Cracked tooth (principal); K02.62 Dental caries on smooth surface penetrating into dentin

== ENCOUNTER → 2017-06-27 | Outpatient (CLI) | payer BC ==
[~2017-06-27] MED LIST changes: -KFLHP PO
[2017-06-27 08:41] LABS: INR 1.6 (0.9-1.1); PROTHROMBIN TIME (PATIENT) 17.1 SECONDS (9.0-12.0)
== END | disposition home or self-care (01) ==
LOC: C.LABWYN 07:43
PROVIDERS: ATTEND Internal Medicine
DX: I48.91 Unspecified atrial fibrillation (principal); Z86.718 Personal history of other venous thrombosis and embolism

== ENCOUNTER → 2017-06-30 | Outpatient (CLI) | payer BC ==
[2017-06-30 08:17] LABS: INR 1.7 (0.9-1.1)
== END | disposition home or self-care (01) ==
LOC: C.LABWYN 07:51
PROVIDERS: ATTEND Internal Medicine
DX: Z79.01 Long term (current) use of anticoagulants (principal); Z51.81 Encounter for therapeutic drug level monitoring

== ENCOUNTER → 2017-07-08 | Outpatient (CLI) | payer BC ==
[2017-07-08 12:43] LABS: PROTHROMBIN TIME (PATIENT) 46.2 SECONDS (9.0-12.0)
[2017-07-08 12:45] LABS: INR 4.1 (0.9-1.1)
== END | disposition home or self-care (01) ==
LOC: C.LABWYN 05:35
PROVIDERS: ATTEND Internal Medicine
DX: I48.91 Unspecified atrial fibrillation (principal)

== ENCOUNTER → 2017-07-11 | Outpatient (CLI) | payer BC ==
[2017-07-11 08:28] LABS: INR 1.7 (0.9-1.1); PROTHROMBIN TIME (PATIENT) 18.7 SECONDS (9.0-12.0)
== END | disposition home or self-care (01) ==
LOC: C.LABWYN 07:43
PROVIDERS: ATTEND Internal Medicine
DX: I48.91 Unspecified atrial fibrillation (principal)

== ENCOUNTER → 2017-07-24 | Outpatient (CLI) | payer BC ==
[2017-07-24 12:50] LABS: INR 2.2 (0.9-1.1); PROTHROMBIN TIME (PATIENT) 24.8 SECONDS (9.0-12.0)
== END | disposition home or self-care (01) ==
LOC: C.LABWYN 13:15
PROVIDERS: ATTEND Internal Medicine
DX: I48.91 Unspecified atrial fibrillation (principal); Z79.01 Long term (current) use of anticoagulants

== ENCOUNTER → 2017-07-28 | Outpatient (CLI) | payer BC ==
[2017-07-28 08:38] LABS: INR 2.5 (0.9-1.1); PROTHROMBIN TIME (PATIENT) 28.1 SECONDS (9.0-12.0)
== END | disposition home or self-care (01) ==
LOC: C.LABWYN 08:04
PROVIDERS: ATTEND Internal Medicine
DX: I48.91 Unspecified atrial fibrillation (principal)

== ENCOUNTER → 2017-08-12 | Outpatient (CLI) | payer BC ==
[2017-08-12 13:02] LABS: INR 2.8 (0.9-1.1); PROTHROMBIN TIME (PATIENT) 31.3 SECONDS (9.0-12.0)
== END | disposition home or self-care (01) ==
LOC: C.LABWYN 13:02
PROVIDERS: ATTEND Internal Medicine
DX: Z86.718 Personal history of other venous thrombosis and embolism (principal)

== ENCOUNTER 2017-08-22 14:15 | Emergency (ER) | payer BC ==
[~2017-08-22] VITALS: Ht 152.4 cm; Wt 69.5 kg
[~2017-08-22 14:15] MED LIST changes: -PANT40TA PO; -TRAM-10 PO; -WARF3TAB PO
[2017-08-22 14:23] VITALS: TEMP 37.1; Ht 152.4 cm; Wt 69.5 kg
[2017-08-22] MEDS ORDERED: CITA20TA4 PO (15:34)
[2017-08-22] MEDS ORDERED: OXYC-57 PO (15:34)
[2017-08-22] MEDS ORDERED: KFL/250 PO (15:34)
[2017-08-22 16:27] LABS: BASO % 0.3 %; BASO ABS # 0.02 K/uL (0-0.2); COMPLETE YES; EOS % 4.6 %; HEMATOCRIT 36.4 % (37-47); IG% 0.2 %; LYMPH % 26.1 %; LYMPH ABS # 1.64 K/uL (1.2-3.4); MEAN CELL VOLUME 91.2 fL (80-100); MEAN CORPUSCULAR HEMOGLOBIN 28.6 pg (25-34); MEAN CORPUSCULAR HGB CONC 31.3 g/dl (32-36); MEAN PLATELET VOLUME 9.1 fL (7.4-10.4); MONO % 10.8 %; PLATELET COUNT 228 K/uL (130-400); RED BLOOD COUNT 3.99 M/uL (4.2-5.4); WHITE BLOOD COUNT 6.29 K/uL (4.8-10.8)
[2017-08-22 16:40] LABS: INR 3.1 (0.9-1.1); PARTIAL THROMBOPLASTIN RATIO 1.6; PROTHROMBIN TIME (PATIENT) 35.3 SECONDS (9.0-12.0)
[2017-08-22 16:47] LABS: BUN/CREATININE RATIO 19.1 (10-20); C-REACTIVE PROTEIN 0.61 mg/dl (0-0.29); CALCIUM 8.9 mg/dl (8.5-10.1); CREATININE 0.73 mg/dl (0.60-1.20)
[2017-08-22 17:12] VITALS: BP 140/68; PULSE 70; O2SAT 98
[2017-08-22] MEDS ORDERED: KETOROLAC TROMETHAMINE 30 MG/ML VIAL IV STA (17:14)
--- NOTE | 2017-08-22 17:16 | DIAGNOSTIC IMAGING REPORT ---
AP PELVIS AND RIGHT HIP 4 VIEWS CLINICAL HISTORY: Right hip and low back pain. Evaluate for fracture. COMPARISON STUDY: 03/15/2017 FINDINGS: Postsurgical changes are present within the lower lumbar spine. There is a bipolar left hip arthroplasty. There is heterotopic ossification superior to the greater trochanter. No right hip fractures are visualized. There are no subluxations. There are mild degenerative changes present within the symphysis pubis. IMPRESSION: Postsurgical changes. No acute fractures or subluxations identified. Electronically signed by: Eliel Adkins M.D. 08/22/2017 5:14 PM Dictated Date/Time: 08/22/2017 5:13 PM
--- NOTE | 2017-08-22 17:17 | DIAGNOSTIC IMAGING REPORT ---
L-SPINE MIN 4 VIEWS ROUTINE CLINICAL HISTORY: Low back pain. Right hip pain. COMPARISON STUDY: CT scan dated 03/15/2017 FINDINGS: There are postsurgical changes of an L4-5 discectomy and interbody fusion. Posterior pedicle screws are evident. There is a bipolar left hip arthroplasty. There is a lumbar dextroscoliosis. No acute fractures or subluxations are visualized. Multiple calcifications project over the left renal shadow consistent with calculi. IMPRESSION: 1. No acute fractures or traumatic subluxations 2. Postsurgical changes within the lumbar spine 3. Left-sided nephrolithiasis Electronically signed by: Eliel Adkins M.D. 08/22/2017 5:16 PM Dictated Date/Time: 08/22/2017 5:15 PM
[2017-08-22] MEDS ORDERED: TRAM-10 PO (17:39)
[2017-08-22] MEDS ORDERED: WARF3TAB PO (17:39)
[2017-08-22] MEDS ORDERED: PANT40TA PO (21:05)
--- NOTE | 2017-08-22 22:16 | EMERGENCY ROOM VISIT NOTE ---
History Report prepared by Eldon: Angela Gandhi Under the Supervision of: Dr. Bebeto Ibanez M.D. First contact with patient: 15:03 Chief Complaint: HIP PAIN History of Present Illness The patient is a 87 year old female who presents to the Emergency Room with complaints of right hip pain that radiates to her knee beginning 3 weeks ago. The patient notes that three weeks ago she fell when she got out of bed. The patient is generally nonambulatory even before the fall. She had an ultrasound a week ago for blood clots which was unremarkable. The patient denies fever, redness, swelling, chest pain, shortness of breath or back pain. She notes her pain worsens with movement. Source of History: patient Onset: 3 weeks ago Position: other (right hip) Quality: other (radiates) Timing: constant Modifying Factors (Worsening): movement Associated Symptoms: No fevers, No chest pain, No SOB, No back pain Review of Systems See HPI for pertinent positives & negatives. A total of 10 systems reviewed and were otherwise negative. Past Medical & Surgical Medical Problems: (1) CAD (coronary artery disease) (2) Fall (3) HLD (hyperlipidemia) (4) HTN (hypertension) (5) Hypothyroidism (6) Migraines (7) Normal colonoscopy (8) NSTEMI (non-ST elevated myocardial infarction) (9) UTI (urinary tract infection) Surgical Problems: (1) H/O total hip arthroplasty (2) History of appendectomy (3) History of cataract surgery (4) S/P knee replacement (5) Status post right partial knee replacement Family History No pertinent family history Social History Smoking Status: Never Smoker Alcohol Use: none Drug Use: none Marital Status: Housing Status: custodial Occupation Status: retired Current/Historical Medications Scheduled Aspirin (Aspirin EC Low Dose), 81 MG PO QAM Atenolol (Tenormin), 12.5 MG PO HS Atorvastatin (Lipitor), 20 MG PO HS Cephalexin Monohydrate (Keflex), 250 MG PO HS Cholecalciferol (Vitamin D3), 2,000 UNIT PO HS Citalopram Hydrobromide (Citalopram Hydrobromide), 1 TAB PO DAILY Docusate Sodium (Colace), 100 MG PO BID Mirtazapine (Remeron), 15 MG PO HS Pantoprazole (Protonix), 40 MG PO DAILY Polyethylene Glycol 3350 (Miralax), 17 GM PO QAM Warfarin Sodium (Coumadin), 3 MG PO DAILY Scheduled PRN Acetaminophen (Tylenol), 650 MG PO Q4H PRN for GENERAL DISCOMFORT Amoxicillin (Amoxil), 2,000 MG PO UD PRN for DENTAL APPT Meclizine HCl (Meclizine HCl), 1 TAB PO TID PRN for Dizziness or Vertigo Oxycodone/Acetaminophen 5MG/325MG (Percocet 5MG/325MG), 1.5 TAB PO Q6 PRN for SEVERE PAIN Tramadol (Ultram), 50 MG PO Q4H PRN for Pain Allergies Coded Allergies: Omeprazole (Verified Allergy, Unknown, distal edema-none with pantoprozole , 03/15/17) Physical Exam Vital Signs Date Time Temp Pulse Resp B/P (MAP) Pulse Ox O2 Delivery O2 Flow Rate FiO2 08/22/17 17:12 70 18 140/68 98 Room Air 08/22/17 14:23 37.1 83 18 113/84 92 Room Air Physical Exam Constitutional: Vital signs reviewed. Eyes: Pupils are equal round reactive to light. Conjunctiva are noninjected. ENT: Pharynx is clear without erythema or exudate. Mucous membranes are moist. Neck supple without meningeal signs. Respiratory: Clear to auscultation bilaterally. Breath sounds are equal bilaterally. Cardiovascular: Regular rate and rhythm. No rubs or gallops. GI: Soft, nondistended and nontender. Bowel sounds are present. Musculoskeletal: Mild tenderness to right hip with mild pain with range of motion, no erythema, swelling or increased warmth. No tenderness to lumbar sacral spine or right knee. Normal distal pulses. Integumentary: No cyanosis. Neurological: The patient is awake and alert. No focal deficits. Psychiatric: Normal affect. Medical Decision & Procedures ER Provider Diagnostic Interpretation: Radiology results as stated below per my review and the radiologist's interpretation: AP PELVIS AND RIGHT HIP 4 VIEWS FINDINGS: Postsurgical changes are present within the lower lumbar spine. There is a bipolar left hip arthroplasty. There is heterotopic ossification superior to the greater trochanter. No right hip fractures are visualized. There are no subluxations. There are mild degenerative changes present within the symphysis pubis. IMPRESSION: Postsurgical changes. No acute fractures or subluxations identified. Electronically signed by: Eliel Adkins M.D. L-SPINE MIN 4 VIEWS ROUTINE FINDINGS: There are postsurgical changes of an L4-5 discectomy and interbody fusion. Posterior pedicle screws are evident. There is a bipolar left hip arthroplasty. There is a lumbar dextroscoliosis. No acute fractures or subluxations are visualized. Multiple calcifications project over the left renal shadow consistent with calculi. IMPRESSION: 1. No acute fractures or traumatic subluxations 2. Postsurgical changes within the lumbar spine 3. Left-sided nephrolithiasis Electronically signed by: Eliel Adkins M.D. Laboratory Results 08/22/17 16:10 Red Blood Count 3.99, Mean Corpuscular Volume 91.2, Mean Corpuscular Hemoglobin 28.6, Mean Corpuscular Hemoglobin Concent 31.3, Mean Platelet Volume 9.1, Neutrophils (%) (Auto) 58.0, Lymphocytes (%) (Auto) 26.1, Monocytes (%) (Auto) 10.8, Eosinophils (%) (Auto) 4.6, Basophils (%) (Auto) 0.3, Neutrophils # (Auto ) 3.65, Lymphocytes # (Auto) 1.64, Monocytes # (Auto) 0.68, Eosinophils # (Auto ) 0.29, Basophils # (Auto) 0.02 08/22/17 16:10 Test 08/22/17 16:10 White Blood Count 6.29 K/uL (4.8-10.8) Red Blood Count 3.99 M/uL (4.2-5.4) Hemoglobin 11.4 g/dL (12.0-16.0) Hematocrit 36.4 % (37-47) Mean Corpuscular Volume 91.2 fL (80-100) Mean Corpuscular Hemoglobin 28.6 pg (25-34) Mean Corpuscular Hemoglobin Concent 31.3 g/dl (32-36) Platelet Count 228 K/uL (130-400) Mean Platelet Volume 9.1 fL (7.4-10.4) Neutrophils (%) (Auto) 58.0 % Lymphocytes (%) (Auto) 26.1 % Monocytes (%) (Auto) 10.8 % Eosinophils (%) (Auto) 4.6 % Basophils (%) (Auto) 0.3 % Neutrophils # (Auto) 3.65 K/uL (1.4-6.5) Lymphocytes # (Auto) 1.64 K/uL (1.2-3.4) Monocytes # (Auto) 0.68 K/uL (0.11-0.59) Eosinophils # (Auto) 0.29 K/uL (0-0.5) Basophils # (Auto) 0.02 K/uL (0-0.2) RDW Standard Deviation 59.3 fL (36.4-46.3) RDW Coefficient of Variation 17.8 % (11.5-14.5) Immature Granulocyte % (Auto) 0.2 % Immature Granulocyte # (Auto) 0.01 K/uL (0.00-0.02) Prothrombin Time 35.3 SECONDS (9.0-12.0) Prothromb Time International Ratio 3.1 (0.9-1.1) Activated Partial Thromboplast Time 40.6 SECONDS (21.0-31.0) Partial Thromboplastin Ratio 1.6 Anion Gap 5.0 mmol/L (3-11) Est Creatinine Clear Calc Drug Dose 49.0 ml/min Estimated GFR () 87.0 Estimated GFR (Non- 75.1 BUN/Creatinine Ratio 19.1 (10-20) Calcium Level 8.9 mg/dl (8.5-10.1) C-Reactive Protein 0.61 mg/dl (0-0.29) Laboratory results as reviewed by me. Medications Administered Medications (Trade) Dose Ordered Sig/Jamilah Route Start Time Stop Time Status Last Admin Dose Admin Ketorolac Tromethamine (Toradol Inj) 10 mg NOW STAT IV 08/22/17 17:14 08/22/17 17:15 DC 08/22/17 17:22 10 MG ED Course 1507: The patient was evaluated in room A11B. A complete history and physical exam was performed. 1714: Toradol Inj 10 mg IV. 1745: I reviewed the patient's test results with her and her daughter. I reviewed return instructions and follow up with them. 1753: Upon reevaluation, the patient appeared to have improvement of her symptoms. I discussed tonight's findings with the patient. She verbalized agreement of the treatment plan. The patient was discharged home. Medical Decision This is an 87-year-old female who presents with right hip pain. Differential diagnosis includes strain, hip fracture, contusion, pelvic fracture, lumbar radiculopathy. I did perform a limited focused review of portions of the patient's old chart on the electronic medical record. The patient was seen in the ED March 15 for left back pain radiating into her left hip and leg. She had an X-Ray pelvis which was unremarkable, CT lumbar spine which showed no fracture , and was discharged home. I did evaluate the patient as noted above. The patient is presenting with right hip pain for the past 3 weeks. She states that she did fall 3 weeks ago. She is nonambulatory by her report. She states she was is nonambulatory even before the fall. She has some mild tenderness in the right hip and pain with range of motion but no signs of a septic joint. IV access was established. I did order and personally review the patient's x-rays as described above. There is no evidence of acute fracture. I did order and review the patient's blood work as noted in the electronic medical record. Her white blood cell count is not elevated. CRP is minimally elevated. Her INR is therapeutic. I did treat patient with Toradol IV. I did discuss the test results with the patient. I did recommend she follow closely with her doctor and/or orthopedics for further care and evaluation. I did discuss return instructions with her and discharged in good condition. Medication Reconcilliation Current Medication List: was personally reviewed by me Blood Pressure Screening Patient's blood pressure: Normal blood pressure Impression Primary Impression: Right hip pain Additional Impression: Anticoagulated on Coumadin Scribe Attestation The scribe's documentation has been prepared under my direct and personally reviewed by me in its entirety. I confirm that the note above accurately reflects all work, treatment, procedures, and medical decision making performed by me. Departure Information Dispostion Home / Self-Care [facility]errals [facility] ([facility] Forms HOME CARE DOCUMENTATION FORM, IMPORTANT VISIT INFORMATION, WORK / SCHOOL INSTRUCTIONS Patient Instructions My [facility] Additional Instructions You have been examined and treated today on an emergency basis only. This is not a substitute for, or an effort to provide, complete comprehensive medical care. It is impossible to recognize and treat all injuries or illnesses in a single emergency department visit. It is therefore important that you follow up closely with your physician. Call as soon as possible for an appointment. Return for worsening symptoms or if you develop fever, vomiting, redness or swelling to your leg, or any other concerning symptoms. Problem Qualifiers
== END 2017-08-22 18:00 | disposition home or self-care (01) ==
LOC: EDSEX 14:15 → EDBD 14:15 → C.EDA 14:16
DX: M25.551 Pain in right hip (principal); Z79.01 Long term (current) use of anticoagulants; I25.10 Atherosclerotic heart disease of native coronary artery without angina pectoris; E78.5 Hyperlipidemia, unspecified; I10 Essential (primary) hypertension; E03.9 Hypothyroidism, unspecified; I25.2 Old myocardial infarction; Z96.649 Presence of unspecified artificial hip joint; Z96.651 Presence of right artificial knee joint; Z79.82 Long term (current) use of aspirin

== ENCOUNTER → 2017-09-30 | Outpatient (CLI) | payer BC ==
[~2017-09-30] MED LIST changes: +CITA20TA4 PO; -ESCI1TAB6 PO; +KFL/250 PO; -ONDA4TAB10 SL; +OXYC-57 PO; -OXYC-609 PO; +PANT40TA PO; +TRAM-10 PO; +WARF3TAB PO; -WARF4TAB PO
[2017-09-30 12:47] LABS: INR 3.1 (0.9-1.1); PROTHROMBIN TIME (PATIENT) 34.7 SECONDS (9.0-12.0)
== END | disposition home or self-care (01) ==
LOC: C.LABWYN 11:48
PROVIDERS: ATTEND Internal Medicine
DX: I48.91 Unspecified atrial fibrillation (principal)

== ENCOUNTER → 2017-10-07 | Outpatient (CLI) | payer BC ==
[2017-10-07 12:54] LABS: INR 1.5 (0.9-1.1); PROTHROMBIN TIME (PATIENT) 15.8 SECONDS (9.0-12.0)
== END | disposition home or self-care (01) ==
LOC: C.LABWYN 12:40
PROVIDERS: ATTEND Internal Medicine
DX: I48.91 Unspecified atrial fibrillation (principal)

== ENCOUNTER → 2017-10-10 | Outpatient (CLI) | payer BC ==
[2017-10-10 08:22] LABS: INR 1.2 (0.9-1.1); PROTHROMBIN TIME (PATIENT) 12.6 SECONDS (9.0-12.0)
== END | disposition home or self-care (01) ==
LOC: C.LABWYN 08:01
PROVIDERS: ATTEND Internal Medicine
DX: I48.91 Unspecified atrial fibrillation (principal)

== ENCOUNTER → 2017-10-16 | Outpatient (CLI) | payer BC | END | disposition home or self-care (01) | LOC: C.LABWYN 10:32 | PROVIDERS: ATTEND Internal Medicine | DX: E03.9 Hypothyroidism, unspecified (principal) ==

== ENCOUNTER → 2017-10-16 | Outpatient (CLI) | payer BC ==
[2017-10-16 13:05] LABS: INR 3.5 (0.9-1.1); PROTHROMBIN TIME (PATIENT) 36.2 SECONDS (9.0-12.0)
== END | disposition home or self-care (01) ==
LOC: C.LABWYN 10:30
PROVIDERS: ATTEND Internal Medicine
DX: I48.91 Unspecified atrial fibrillation (principal)

== ENCOUNTER → 2017-10-23 | Outpatient (CLI) | payer BC ==
[2017-10-23 12:51] LABS: INR 2.1 (0.9-1.1)
== END | disposition home or self-care (01) ==
LOC: C.LABWYN 10:57
PROVIDERS: ATTEND Internal Medicine
DX: I48.91 Unspecified atrial fibrillation (principal); K21.9 Gastro-esophageal reflux disease without esophagitis; E03.9 Hypothyroidism, unspecified; I11.9 Hypertensive heart disease without heart failure; E78.5 Hyperlipidemia, unspecified; I25.10 Atherosclerotic heart disease of native coronary artery without angina pectoris; Z96.642 Presence of left artificial hip joint; Z96.651 Presence of right artificial knee joint; Z87.440 Personal history of urinary (tract) infections; Z86.718 Personal history of other venous thrombosis and embolism; M19.90 Unspecified osteoarthritis, unspecified site; G89.29 Other chronic pain

== ENCOUNTER → 2017-11-06 | Outpatient (CLI) | payer BC ==
[2017-11-06 13:03] LABS: INR 2.3 (0.9-1.1)
== END | disposition home or self-care (01) ==
LOC: C.LABWYN 10:26
PROVIDERS: ATTEND Internal Medicine
DX: I48.91 Unspecified atrial fibrillation (principal)

== ENCOUNTER → 2017-11-25 | Outpatient (CLI) | payer BC | END | disposition home or self-care (01) | LOC: C.LABWYN 10:55 | PROVIDERS: ATTEND Internal Medicine | DX: N39.0 Urinary tract infection, site not specified (principal) ==

== ENCOUNTER → 2017-11-27 | Outpatient (CLI) | payer BC ==
[2017-11-27 13:09] LABS: INR 5.2 (0.9-1.1)
== END | disposition home or self-care (01) ==
LOC: C.LABWYN 09:47
PROVIDERS: ATTEND Internal Medicine
DX: I48.91 Unspecified atrial fibrillation (principal); Z86.718 Personal history of other venous thrombosis and embolism

== ENCOUNTER → 2017-12-02 | Outpatient (CLI) | payer BC ==
[2017-12-02 12:47] LABS: INR 2.1 (0.9-1.1)
== END | disposition home or self-care (01) ==
LOC: C.LABWYN 10:51
PROVIDERS: ATTEND Internal Medicine
DX: I48.91 Unspecified atrial fibrillation (principal); Z79.01 Long term (current) use of anticoagulants; Z86.718 Personal history of other venous thrombosis and embolism

== ENCOUNTER → 2017-12-16 | Outpatient (CLI) | payer BC ==
[2017-12-16 12:58] LABS: INR 3.4 (0.9-1.1)
== END | disposition home or self-care (01) ==
LOC: C.LABWYN 14:32
PROVIDERS: ATTEND Nurse Practitioner Adult Health
DX: I48.91 Unspecified atrial fibrillation (principal)

== ENCOUNTER → 2017-12-18 | Outpatient (CLI) | payer BC ==
[2017-12-18 12:33] LABS: INR 2.1 (0.9-1.1)
== END | disposition home or self-care (01) ==
LOC: C.LABWYN 12:21
PROVIDERS: ATTEND Internal Medicine
DX: I48.91 Unspecified atrial fibrillation (principal); Z86.718 Personal history of other venous thrombosis and embolism

== ENCOUNTER → 2017-12-25 | Outpatient (CLI) | payer BC ==
[2017-12-25 12:47] LABS: INR 2.4 (0.9-1.1)
== END | disposition home or self-care (01) ==
LOC: C.LABWYN 12:08
PROVIDERS: ATTEND Internal Medicine
DX: I48.91 Unspecified atrial fibrillation (principal)

== ENCOUNTER → 2017-12-30 | Outpatient (CLI) | payer BC ==
[2017-12-30 12:22] LABS: HEMATOCRIT 35.5 % (37-47); HEMOGLOBIN 11.1 g/dL (12.0-16.0); MEAN CELL VOLUME 96.5 fL (80-100); MEAN CORPUSCULAR HEMOGLOBIN 30.2 pg (25-34); MEAN CORPUSCULAR HGB CONC 31.3 g/dl (32-36); MEAN PLATELET VOLUME 9.3 fL (7.4-10.4); PLATELET COUNT 207 K/uL (130-400); RED CELL DISTRIBUTION WIDTH CV 16.8 % (11.5-14.5); WHITE BLOOD COUNT 5.46 K/uL (4.8-10.8)
[2017-12-30 13:06] LABS: BLOOD UREA NITROGEN 11 mg/dl (7-18); CALCIUM 8.6 mg/dl (8.5-10.1); CARBON DIOXIDE 27 mmol/L (21-32); CHOLESTEROL 116 mg/dl (0-200); CREATININE 0.83 mg/dl (0.60-1.20); GLUCOSE 88 mg/dl (70-99); POTASSIUM 3.7 mmol/L (3.5-5.1); SODIUM 144 mmol/L (136-145)
[2017-12-30 13:16] LABS: LDL CHOLESTEROL CALCULATED 40 mg/dl
== END | disposition home or self-care (01) ==
LOC: C.LABWYN 10:27
PROVIDERS: ATTEND Nurse Practitioner Adult Health
DX: E03.9 Hypothyroidism, unspecified (principal); E78.5 Hyperlipidemia, unspecified; M81.0 Age-related osteoporosis without current pathological fracture; I10 Essential (primary) hypertension

== ENCOUNTER → 2018-01-06 | Outpatient (CLI) | payer BC | END | disposition home or self-care (01) | LOC: C.LABWYN 09:07 | PROVIDERS: ATTEND Nurse Practitioner Adult Health | DX: R30.0 Dysuria (principal) ==

== ENCOUNTER → 2018-01-08 | Outpatient (CLI) | payer BC ==
[2018-01-08 13:28] LABS: INR 3.7 (0.9-1.1)
== END | disposition home or self-care (01) ==
LOC: C.LABWYN 10:52
PROVIDERS: ATTEND Internal Medicine
DX: I48.91 Unspecified atrial fibrillation (principal)

== ENCOUNTER → 2018-01-15 | Outpatient (CLI) | payer BC ==
[2018-01-15 12:55] LABS: INR 1.7 (0.9-1.1)
== END | disposition home or self-care (01) ==
LOC: C.LABWYN 11:32
PROVIDERS: ATTEND Internal Medicine
DX: I48.91 Unspecified atrial fibrillation (principal); E03.9 Hypothyroidism, unspecified

== ENCOUNTER → 2018-01-22 | Outpatient (CLI) | payer BC ==
[2018-01-22 13:15] LABS: INR 2.2 (0.9-1.1)
== END | disposition home or self-care (01) ==
LOC: C.LABWYN 08:43
PROVIDERS: ATTEND Internal Medicine
DX: I48.91 Unspecified atrial fibrillation (principal)

== ENCOUNTER → 2018-01-29 | Outpatient (CLI) | payer BC | END | disposition home or self-care (01) | LOC: C.LABWYN 11:52 | PROVIDERS: ATTEND Internal Medicine | DX: N39.0 Urinary tract infection, site not specified (principal) ==

== ENCOUNTER → 2018-02-05 | Outpatient (CLI) | payer BC ==
[2018-02-05 13:18] LABS: INR 2.3 (0.9-1.1)
== END ==
LOC: C.LABWYN 08:14
PROVIDERS: ATTEND Internal Medicine
DX: Z51.81 Encounter for therapeutic drug level monitoring (principal); Z79.01 Long term (current) use of anticoagulants; I48.91 Unspecified atrial fibrillation

== ENCOUNTER → 2018-02-26 | Outpatient (CLI) | payer BC ==
[~2018-02-26] MED LIST changes: -ASPEC81 PO; +ASPI-320 PO; +CMD3 PO; +DTR/5 PO; +LEVO25TA PO; +LOPE1LIQ15 PO; +NRN100 PO
== END | disposition home or self-care (01) ==
LOC: C.LABWYN 13:26
PROVIDERS: ATTEND Internal Medicine
DX: Z79.01 Long term (current) use of anticoagulants (principal)

== ENCOUNTER → 2018-03-03 | Outpatient (CLI) | payer BC ==
[~2018-03-03] MED LIST changes: -CMD3 PO; -DTR/5 PO; -LEVO25TA PO; -LOPE1LIQ15 PO; -NRN100 PO
== END | disposition home or self-care (01) ==
LOC: C.LABWYN 17:26
PROVIDERS: ATTEND Internal Medicine
DX: Z51.81 Encounter for therapeutic drug level monitoring (principal); Z79.01 Long term (current) use of anticoagulants

== ENCOUNTER 2018-03-10 10:17 | Inpatient (IN) | payer BC, OTHER ==
[2018-03-10] VITALS (18 sets, daily range): BP systolic 74–115; BP diastolic 40–71; PULSE 77–103; TEMP 36.7–37.6; O2SAT 91–100; BMI 29.3
[~2018-03-10] VITALS: Ht 152.4 cm; Wt 71.7 kg
[~2018-03-10 10:17] MED LIST changes: -CMD3 PO; -DTR/5 PO; -LEVO25TA PO; -LOPE1LIQ15 PO; -NRN100 PO
[2018-03-10] MEDS ORDERED: SODIUM CHLORIDE 0.9% 1000ML 1,000 ML IV ONE (10:24)
--- NOTE | 2018-03-10 11:00 | DIAGNOSTIC IMAGING REPORT ---
CHEST ONE VIEW PORTABLE CLINICAL HISTORY: 87 years-old Female presenting with Sepsis. TECHNIQUE: Portable upright AP view of the chest was obtained. COMPARISON: 07/29/2016. FINDINGS: Atherosclerosis of the aortic arch. Cardiac silhouette top normal in size. No focal opacity. No large effusion or pneumothorax. Osseous structures normal. Upper abdomen normal. IMPRESSION: 1. No acute cardiopulmonary disease. Electronically signed by: Artem Mars M.D. 03/10/2018 10:58 AM Dictated Date/Time: 03/10/2018 10:57 AM
--- NOTE | 2018-03-10 11:20 | EMERGENCY ROOM VISIT NOTE ---
ED Visit Note First contact with patient: 10:20 I have seen and examined this patient with Edward Franco and generally agree with the treatment plan as discussed. Problem List Medical Problems: (1) CAD (coronary artery disease) Status: Chronic (2) HLD (hyperlipidemia) Status: Chronic (3) HTN (hypertension) Status: Chronic (4) Hypothyroidism Status: Chronic (5) Migraines Status: Chronic (6) Normal colonoscopy Status: Chronic (7) NSTEMI (non-ST elevated myocardial infarction) Status: Chronic Surgical Problems: (1) H/O total hip arthroplasty Status: Chronic (2) History of appendectomy Status: Chronic (3) History of cataract surgery Status: Chronic (4) S/P knee replacement Status: Chronic (5) Status post right partial knee replacement Status: Resolved Current/Historical Medications Scheduled Aspirin (Aspirin EC Low Dose), 81 MG PO QAM Atenolol (Tenormin), 12.5 MG PO HS Atorvastatin (Lipitor), 20 MG PO HS Cephalexin Monohydrate (Keflex), 250 MG PO HS Cholecalciferol (Vitamin D3), 2,000 UNIT PO HS Citalopram Hydrobromide (Citalopram Hydrobromide), 1 TAB PO DAILY Docusate Sodium (Colace), 100 MG PO BID Mirtazapine (Remeron), 15 MG PO HS Pantoprazole (Protonix), 40 MG PO DAILY Polyethylene Glycol 3350 (Miralax), 17 GM PO QAM Warfarin Sodium (Coumadin), 3 MG PO DAILY Scheduled PRN Acetaminophen (Tylenol), 650 MG PO Q4H PRN for GENERAL DISCOMFORT Amoxicillin (Amoxil), 2,000 MG PO UD PRN for DENTAL APPT Meclizine HCl (Meclizine HCl), 1 TAB PO TID PRN for Dizziness or Vertigo Oxycodone/Acetaminophen 5MG/325MG (Percocet 5MG/325MG), 1.5 TAB PO Q6 PRN for SEVERE PAIN Tramadol (Ultram), 50 MG PO Q4H PRN for Pain Allergies Coded Allergies: Omeprazole (Verified Allergy, Unknown, distal edema-none with pantoprozole , 03/10/18) Vital Signs Date Time Temp Pulse Resp B/P (MAP) Pulse Ox O2 Delivery O2 Flow Rate FiO2 03/10/18 10:28 80 03/10/18 10:18 95 Nasal Cannula 03/10/18 10:17 89 Room Air 03/10/18 10:17 36.8 75 16 95/48 89 Room Air Laboratory Results Test 03/10/18 10:48 03/10/18 11:13 Departure Information [facility]errals [facility] ([facility]) Patient Instructions Count Includes [facility]
[2018-03-10 11:22] LABS: HEMATOCRIT 34.3 % (37-47); HEMOGLOBIN 10.9 g/dL (12.0-16.0); MEAN CELL VOLUME 93.7 fL (80-100); MEAN CORPUSCULAR HEMOGLOBIN 29.8 pg (25-34); MEAN CORPUSCULAR HGB CONC 31.8 g/dl (32-36); MEAN PLATELET VOLUME 8.7 fL (7.4-10.4); PLATELET COUNT 204 K/uL (130-400); RED CELL DISTRIBUTION WIDTH CV 16.3 % (11.5-14.5); RED CELL DISTRIBUTION WIDTH SD 55.5 fL (36.4-46.3); WHITE BLOOD COUNT 24.56 K/uL (4.8-10.8)
[2018-03-10] MEDS ORDERED: PIPERACILLIN/TAZOBACTAM 4.5 GM/100ML D5W IV STA (11:25)
[2018-03-10] MEDS ORDERED: SODIUM CHLORIDE 0.9% 1000ML 1,000 ML IV STA (11:25)
[2018-03-10] MEDS ORDERED: VANCOMYCIN 1GM ED/ASU OMNICELL IV STA (11:25)
[2018-03-10 11:32] LABS: ALBUMIN 2.6 gm/dl (3.4-5.0); ALT/SGPT 19 U/L (12-78); AST/SGOT 36 U/L (15-37); BLOOD UREA NITROGEN 26 mg/dl (7-18); CALCIUM 8.1 mg/dl (8.5-10.1); CARBON DIOXIDE 25 mmol/L (21-32); CREATININE 2.13 mg/dl (0.60-1.20); GLUCOSE 116 mg/dl (70-99); POTASSIUM 4.1 mmol/L (3.5-5.1); SODIUM 139 mmol/L (136-145)
[2018-03-10] MEDS ORDERED: LOPE1LIQ15 PO (11:33)
[2018-03-10] MEDS ORDERED: DTR/5 PO (11:33)
[2018-03-10] MEDS ORDERED: NRN100 PO (11:33)
[2018-03-10] MEDS ORDERED: CMD3 PO (11:33)
[2018-03-10] MEDS ORDERED: LEVO25TA PO (11:33)
[2018-03-10 11:37] LABS: ALKALINE PHOSPHATASE 90 U/L (45-117); TOTAL PROTEIN 6.4 gm/dl (6.4-8.2)
[2018-03-10 11:43] LABS: BASO % 0.1 %; BASO ABS # 0.02 K/uL (0-0.2); EOS % 0.2 %; EOS ABS # 0.04 K/uL (0-0.5); IG# 0.17 K/uL (0.00-0.02); LYMPH % 3.8 %; LYMPH ABS # 0.93 K/uL (1.2-3.4); MONO % 5.7 %; NEUT % 89.5 %
[2018-03-10] MEDS ORDERED: VANCOMYCIN IV 1,000 MG in SODIUM CHLORIDE 0.9% 250ML 250 ML IV PRN (11:50)
[2018-03-10] MEDS ORDERED: PIPERACILL/TAZOBAC IV 4.5 GM in DEXTROSE 5% 100ML 100 ML IV SCH (12:00)
[2018-03-10] MEDS ORDERED: MAGNESIUM HYDROXIDE SUSP 30 ML UDC PO PRN (12:00)
[2018-03-10] MEDS ORDERED: NITROGLYCERIN 0.4 MG SL PER TAB CHARGE SL PRN (12:00)
[2018-03-10] MEDS ORDERED: ONDANSETRON INJ 2 MG/ML 2 ML VIAL IV PRN (12:00)
[2018-03-10] MEDS ORDERED: POLYETHYLENE (MIRALAX) 17 GM PACK PO PRN (12:00)
[2018-03-10] MEDS ORDERED: ALUMINUM/MAGNESIUM/SIMETH (MAALOX MAX) 30 ML UDC PO PRN (12:00)
[2018-03-10] MEDS ORDERED: VANCOMYCIN CONSULT ACTIVE PRN (12:00)
[2018-03-10] MEDS ORDERED: LACTATED RINGER'S 1000ML 1,000 ML IV SCH (12:15)
[2018-03-10] MEDS ORDERED: PIPERACILL/TAZOBAC CONSULT ACTIVE PRN (12:45)
[2018-03-10 13:07] LABS: INR 5.4 (0.9-1.1)
--- NOTE | 2018-03-10 13:19 | History and Physical ---
History & Physical Date & Time of Service: March 10, 2018 at 12:29 Chief Complaint: Weakness Primary Care Physician: Jovon Moran History of Present Illness Source: patient, clinic records, hospital records Pt is 87 y/o F with PMH HTN, HLD, CAD, a-fib on Coumadin, recurrent UTI's on Keflex, overactive bladder, depression, GERD, hypothyroidism presented to ER from [facility] with c/o lethargy, hypoxia. Patient states last week started with some lower back pain. Past several days with decreased appetite and decreased oral intake. States that ate very little yesterday, nothing to eat or drink today. Yesterday felt tactile fevers, generalized weakness and fatigue. Patient states some dysuria yesterday, something had any hematuria. She reports chronic urinary frequency and urinary incontinence unsure if this is increased. Followed with [facility] urology on 03/03/18 and out patient urodynamics were planned. Reported patient hypoxic this morning. Denies diaphoresis, N/V/D/ C, dizziness, syncope, vision changes, neck pain, CP, SOB, orthopnea, palpitations, cough, sore throat, choking, otalgia, rhinorrhea, abdominal pain, extremity edema, rashes, weight loss. Past Medical/Surgical History Medical Problems: (1) Anticoagulated on Coumadin Status: Chronic (2) Atrial fibrillation Status: Chronic (3) CAD (coronary artery disease) Status: Chronic (4) Depression Status: Chronic (5) GERD (gastroesophageal reflux disease) Status: Chronic (6) History of DVT (deep vein thrombosis) Status: Chronic (7) HLD (hyperlipidemia) Status: Chronic (8) HTN (hypertension) Status: Chronic (9) Hypothyroidism Status: Chronic (10) Migraines Status: Chronic (11) Normal colonoscopy Status: Chronic (12) NSTEMI (non-ST elevated myocardial infarction) Status: Chronic (13) Right hip pain Status: Resolved (14) Small bowel obstruction Status: Resolved (15) UTI (urinary tract infection) Status: Resolved Surgical Problems: (1) H/O total hip arthroplasty Status: Resolved (2) History of appendectomy Status: Resolved (3) History of cataract surgery Status: Resolved (4) S/P knee replacement Status: Resolved (5) Status post right partial knee replacement Status: Resolved Family History Diabetes mellitus FH: CAD (coronary artery disease) Hypertension Pancreatic cancer Social History Smoking Status: Never Smoker Smokeless Tobacco Use: No Alcohol Use: none Drug Use: none Housing status: other ([facility]) Occupational Status: retired Immunizations History of Influenza Vaccine: Yes Influenza Vaccine Date: Aug 03, 2009 History of Tetanus Vaccine?: Yes History of Pneumococcal: Yes History of Hepatitis B Vaccine: No Allergies Coded Allergies: Omeprazole (Verified Allergy, Unknown, distal edema-none with pantoprozole , 03/10/18) Home Medications Scheduled Aspirin (Aspirin EC Low Dose), 81 MG PO QAM Atenolol (Tenormin), 12.5 MG PO HS Atorvastatin (Lipitor), 20 MG PO HS Cephalexin Monohydrate (Keflex), 250 MG PO HS Cholecalciferol (Vitamin D3), 2,000 UNIT PO HS Citalopram Hydrobromide (Citalopram Hydrobromide), 1 TAB PO DAILY Docusate Sodium (Colace), 100 MG PO BID Gabapentin (Gabapentin), 100 MG PO HS Levothyroxine Sodium (Synthroid), 25 MCG PO DAILY Mirtazapine (Remeron), 15 MG PO HS Oxybutynin Chloride (Ditropan), 5 MG PO BID Pantoprazole (Protonix), 40 MG PO DAILY Warfarin Sod (Coumadin), 1.5 MG PO PM Scheduled PRN Acetaminophen (Tylenol), 650 MG PO Q4H PRN for GENERAL DISCOMFORT Amoxicillin (Amoxil), 2,000 MG PO UD PRN for DENTAL APPT Loperamide Hcl (Loperamide Hcl), 10 ML PO BID PRN for Diarrhea Oxycodone/Acetaminophen 5MG/325MG (Percocet 5MG/325MG), 1.5 TAB PO BID PRN for SEVERE PAIN Polyethylene Glycol 3350 (Miralax), 17 GM PO QAM PRN for Constipation Tramadol (Ultram), 50 MG PO Q4H PRN for Pain Review of Systems See HPI for pertinent positives & negatives. All other systems reviewed and were otherwise negative Physical Exam Vital Signs Date Time Temp Pulse Resp B/P (MAP) Pulse Ox O2 Delivery O2 Flow Rate FiO2 03/10/18 11:32 79 17 96 03/10/18 11:31 76/35 03/10/18 11:17 80 15 92 5/8/18 11:02 79 21 94 03/10/18 11:00 82/51 03/10/18 10:47 78 21 95 03/10/18 10:46 90/59 03/10/18 10:32 80 22 95 03/10/18 10:28 80 03/10/18 10:21 95/48 03/10/18 10:18 95 Nasal Cannula 03/10/18 10:17 89 Room Air 03/10/18 10:17 36.8 75 16 95/48 89 Room Air General Appearance: + pertinent finding (Moderately ill appearing, no acute distress) Head: normocephalic, atraumatic Eyes: normal inspection, PERRL, EOMI, sclerae normal ENT: hearing grossly normal, pharynx normal, + pertinent finding (Mucous membranes very dry) Neck: supple, no JVD, trachea midline Respiratory/Chest: lungs clear, normal breath sounds, no respiratory distress Cardiovascular: regular rate, rhythm, no murmur, normal peripheral pulses Abdomen/GI: normal bowel sounds, non tender, soft Back: no CVA tenderness (to percussion) Extremities/Musculoskelatal: no calf tenderness, normal capillary refill, no pedal edema, non-tender Neurologic/Psych: alert, normal mood/affect, oriented x 3 Skin: warm/dry Diagnostics Laboratory Results Results Past 24 Hours Test 03/10/18 10:48 03/10/18 10:56 03/10/18 11:13 03/10/18 11:30 Range/Units Prothrombin Time 55.3 9.0-12.0 SECONDS Activated Partial Thromboplast Time 49.0 21.0-31.0 SECONDS Partial Thromboplastin Ratio 1.9 D-Dimer 750 0-500 ug/L FEU Sodium Level 139 136-145 mmol/L Potassium Level 4.1 3.5-5.1 mmol/L Chloride Level 106 98-107 mmol/L Carbon Dioxide Level 25 21-32 mmol/L Anion Gap 8.0 3-11 mmol/L Blood Urea Nitrogen 26 7-18 mg/dl Creatinine 2.13 0.60-1.20 mg/dl Est Creatinine Clear Calc Drug Dose 16.6 ml/min Estimated GFR () 23.8 Estimated GFR (Non- 20.6 BUN/Creatinine Ratio 12.1 10-20 Random Glucose 116 70-99 mg/dl Calcium Level 8.1 8.5-10.1 mg/dl Total Bilirubin 0.8 0.2-1 mg/dl Aspartate Amino Transf (AST/SGOT) 36 15-37 U/L Alanine Aminotransferase (ALT/SGPT) 19 12-78 U/L Alkaline Phosphatase 90 45-117 U/L Troponin I < 0.015 0-0.045 ng/ml Total Protein 6.4 6.4-8.2 gm/dl Albumin 2.6 3.4-5.0 gm/dl Globulin 3.8 2.5-4.0 gm/dl Albumin/Globulin Ratio 0.7 0.9-2 Bedside Lactic Acid Venous 3.84 0.90-1.70 mmol/L White Blood Count 24.56 4.8-10.8 K/uL Red Blood Count 3.66 4.2-5.4 M/uL Hemoglobin 10.9 12.0-16.0 g/dL Hematocrit 34.3 37-47 % Mean Corpuscular Volume 93.7 80-100 fL Mean Corpuscular Hemoglobin 29.8 25-34 pg Mean Corpuscular Hemoglobin Concent 31.8 32-36 g/dl Platelet Count 204 130-400 K/uL Mean Platelet Volume 8.7 7.4-10.4 fL Neutrophils (%) (Auto) 89.5 % Lymphocytes (%) (Auto) 3.8 % Monocytes (%) (Auto) 5.7 % Eosinophils (%) (Auto) 0.2 % Basophils (%) (Auto) 0.1 % Neutrophils # (Auto) 22.00 1.4-6.5 K/uL Lymphocytes # (Auto) 0.93 1.2-3.4 K/uL Monocytes # (Auto) 1.40 0.11-0.59 K/uL Eosinophils # (Auto) 0.04 0-0.5 K/uL Basophils # (Auto) 0.02 0-0.2 K/uL RDW Standard Deviation 55.5 36.4-46.3 fL RDW Coefficient of Variation 16.3 11.5-14.5 % Immature Granulocyte % (Auto) 0.7 % Immature Granulocyte # (Auto) 0.17 0.00-0.02 K/uL Urine Color DK YELLOW Urine Appearance TURBID CLEAR Urine pH 6.0 4.5-7.5 Urine Specific [place] 1.020 1.000-1.030 Urine Protein 2+ NEG Urine Glucose (UA) NEG NEG Urine Ketones TRACE NEG Urine Occult Blood 3+ NEG Urine Nitrite NEG NEG Urine Bilirubin NEG NEG Urine Urobilinogen NEG NEG Urine Leukocyte Esterase LARGE NEG Urine WBC (Auto) >30 0-5 /hpf Urine RBC (Auto) 10-30 0-4 /hpf Urine Hyaline Casts (Auto) 1-5 0-5 /lpf Urine Epithelial Cells (Auto) >30 0-5 /lpf Urine Bacteria (Auto) 4+ NEG Urine Crystals CALCIUM OXALATE NONE PRSENT Urine Pathogenic Casts 0 /lpf Urine Yeast (Auto) NONE PRSENT Microbiology Results 03/10/18 Blood Culture, Received Pending 03/10/18 Blood Culture, Received Pending 03/10/18 Urine Culture, Received Pending Diagnostic Radiology CXR: IMPRESSION: 1. No acute cardiopulmonary disease. EKG EKG: NSR, rate 78, t wave flattening III, aVF Impression Assessment and Plan Pt is 87 y/o F with PMH HTN, HLD, CAD, a-fib on Coumadin, recurrent UTI's on Keflex, overactive bladder, depression, GERD, hypothyroidism presented to ER from [facility] with c/o lethargy, hypoxia, back pain, increased urinary symptoms. SEPSIS Secondary to urosepsis In ER patient afebrile, pulse 75, respirations 16, BP 95/48 down to 76/35. 89% on room air up to 95% on 2L NC. WBC: 24, lactic acid: 3.8, procalcitonin: 41. Cr: 2.1 (0.8 on 12/2017). Hgb: 10.9 (baseline ~11). Negative troponin. Chest x- ray negative. UA: Trace ketones, 3+ blood, large,> 30 WBC, 10-30 RBC,> 30 epithelial, 4+ bacteria, calcium oxalate crystals Given 2L NSS, Zosyn, vancomycin. BP up to 88/48, patient awake and oriented. -Pending urine culture -Pending blood culture -IVF -Trend lactic acid -Zosyn and vancomycin -close monitoring of pt's hypotension, if not improving after adequate fluids consider pressors/transfer to ICU -holding pt's chronic Keflex for recurrent UTI's at this time -CT abdomen/pelvis R/O obstructing stone -CBC in am ACUTE KIDNEY INJURY Cr:2.1. Was 0.8 on 12/2017. Pt with dehydration and sepsis -IVF -CT abd/pelvis to R/O stone -monitor renal functions -avoid nephrotoxic agents when possible -urology consult HYPOXIA 89% on room air up to 95% on 2L NC. CXR: No acute cardiopulmonary disease. No c/ o cough, SOB/CP. D-Dimer: 750 -Pt with supratherapeutic INR at this time (5.4) -supplemental oxygen -nebs -continue to monitor, if no improvement consider further workup to r/o PE, holding on CTA chest at this time secondary to MEGHAN HISTORY OF ATRIAL FIBRILLATION ON COUMADIN / SUPRATHERAPEUTIC INR Current sinus rhythm. INR: 5.4. No active bleeding -hold coumadin -INR in am -holding beta tayler secondary to hypotension HTN Pt currently hypotensive -holding beta tayler Hx CAD Denies CP, SOB -continue statin, holding ASA at this time DEPRESSION -continue citalopram HYPOTHYROIDISM TSH: pending -continue levothyroxine GERD -continue PPI DVT Prophylaxis -On coumadin Disposition admit tele Full Code as per discussion with pt Pt currently at [facility], She is planning on following with Dr Regalado for routine care Pt was seen with Dr Iglesias. See addendum ATTENDING ADDENDUM : pt admitted with severe sepsis secondary to urinary source/UTI Continued with empiric antibiotics/given IV fluid bolus Patient remains persistently hypotensive in spite of giving IV fluid bolus and broad-spectrum antibiotic with IV vancomycin and Zosyn Repeat lactic acid shows worsening from 3->4 CT abdomen and pelvis without contrast shows left-sided 6 mm obstructing renal stone with left-sided hydroureteronephrosis UA grossly positive Severe sepsis due to urinary tract infection/pyelonephritis/obstructed renal stone on the left side Case discussed with province archivist Dr. Pagan Patient will be is transferred to intensive care unit for close monitoring of hemodynamics She is full code as per the record from [facility] Spoke with patient's son Osmani Marcelino phone number: [phone] Updated patient's status Son is agreeable for urologic procedure/ICU transfer Confirms that patient does have a living will, which states she does not want to be on life support in the setting of a reversible/terminal vegetative state Okay for invasive procedure/life-support if there is a reasonable chance for recovery Urology consult requested Discussed with on-call urology Dr. Pittman from [facility] physician group Dr. Pittman will be in-house later today patient will need emergent urology procedure /ureteric stent placement Patient is on Coumadin for history of A. fib INR more than 5 Given 5 mg of p.o. vitamin K Repeat PT/INR at 8 PM Discussed with Urology - okay to proceed for stent placement as patient is given vitamin K already Patient is ordered n.p.o. Rochelle Iglesias MD Resuscitation Status Full code VTE Prophylaxis Will order VTE Prophylaxis: Yes Additional Copies To Lachelle Regalado D.O.; [facility]
[2018-03-10] MEDS ORDERED: VANCOMYCIN IV 750 MG in SODIUM CHLORIDE 0.9% 250ML 250 ML IV ONE (14:15)
--- NOTE | 2018-03-10 14:45 | Progress Note ---
Progress Note Date of Service March 10, 2018. Progress Note ID Consult Dictated #[id number] A/P: 1. Severe Sepsis -Continue abx, follow cultures, ct findings -thank you
[2018-03-10] MEDS: ALBUT/IPRATROP 3MG/0.5MG NEB 3 ML VIAL INH SCH ×2 (15:03→19:39)
--- NOTE | 2018-03-10 15:25 | INFECT. DISEASE CONSULTATION ---
DATE OF CONSULTATION: 03/10/2018 HISTORY OF PRESENT ILLNESS: This is an 87-year-old female who was admitted from [facility] secondary to lethargy and hypoxia. On my examination, she is lethargic, and she is suffering from shaking chills. She states that she has cold. She denies any sweats or fevers currently. She denies any abdominal pain. She denies any chest pain or cough. She is lethargic, and her review of systems is limited but otherwise negative. She does have a history of recurrent urinary tract infections and was previously on Keflex. She did have a markedly abnormal urinalysis in the Emergency Room with large leukocyte esterase, greater than 30 WBCs, and +4 bacteria. She was also found to have a leukocytosis of 24,000 and a creatinine of 2.1. Her lactic acid was elevated, and her procalcitonin is markedly elevated at 41. She has been afebrile since admission; however, she remains hypotensive and hypoxic. She has a CAT scan of the abdomen pending. Her chest x-ray was negative in the ER. PAST MEDICAL HISTORY: Significant for anticoagulation with Coumadin, atrial fibrillation, coronary artery disease, depression, GERD, DVT, hyperlipidemia, hypertension, hypothyroidism, migraine headaches, non-ST elevated LA, and recurrent urinary tract infections. PAST SURGICAL HISTORY: Significant for hip arthroplasty, appendectomy, cataract surgery, and knee replacement. FAMILY HISTORY: Noncontributory. SOCIAL HISTORY: Negative for tobacco use, alcohol use, or drug use. She lives at [facility]. ALLERGIES: SHE IS ALLERGIC TO OMEPRAZOLE. MEDICATIONS: Celexa, Protonix, Synthroid, Lipitor, vitamin D, Neurontin, Remeron, Ditropan, DuoNebs, vancomycin, Zosyn, Tylenol, Maalox, milk of magnesia, Zofran, MiraLax. PHYSICAL EXAMINATION: VITAL SIGNS: She is afebrile, pulse 77, respiratory rate 18, blood pressure 97/57, oxygen saturation is between 91% and 97% on 2 L nasal cannula. GENERAL: She is awake but lethargic. HEENT: Extraocular muscles are intact. Mucous membranes are dry. CARDIOVASCULAR: Heart is regular. RESPIRATORY: Lungs have decreased breath sounds bilaterally but are clear. GASTROINTESTINAL: Abdomen is soft, nontender, nondistended. There is no edema. SKIN: Without rash. LABORATORY DATA: CBC: White blood cell count 24.5, hemoglobin 10.9, platelets 204. Chemistry panel: Sodium 139, potassium 4.1, chloride 106, bicarbonate 25, BUN 26, creatinine 2.1, glucose 116. Lactic acid 3.8. Procalcitonin 41.1. UA is as above. Blood cultures and urine cultures are pending. IMAGING: Chest x-ray is unremarkable. CAT scan is pending. ASSESSMENT AND PLAN: Sepsis, likely secondary to urinary source. She will remain on broad spectrum antibiotics pending the results of CAT scan. Blood and urine cultures. We will follow along with you. Thank you for this consultation.
--- NOTE | 2018-03-10 15:31 | Pharmacy Progress Note ---
Pharmacy Abx Dose Short Note Date of Service March 10, 2018. Assessment & Plan Assessment 87 year old female receiving Vancomycin/Zosyn for treatment of complicated UTI Day # 11/12 of antimicrobial therapy. Plan Vancomycin * Loading dose of 1750 mg (~25 mg/kg) IV * Based on current renal function dosing interval will be greater than q24h. Will reassess in am to see if renal function has improved and dose based on labs in am. Pharmacy will continue to follow and will adjust dose/frequency as necessary. Thank you.
[2018-03-10 15:55] LABS: CALCIUM 7.3 mg/dl (8.5-10.1); CREATININE 1.95 mg/dl (0.60-1.20)
--- NOTE | 2018-03-10 15:59 | DIAGNOSTIC IMAGING REPORT ---
ABD/PELVIS WITHOUT FOR STONE CT DOSE: 776.81 mGy.cm HISTORY: ACUTE RENAL FAILURE /UTI /HX OF RENAL STONE TECHNIQUE: Multiaxial CT images of the abdomen and pelvis were performed without the use of intravenous and oral contrast according to the standard department stone protocol. A dose lowering technique was utilized adhering to the principles of ALARA. COMPARISON STUDY: 01/08/2017 FINDINGS: Trace pleural fluid left lung base. Hiatal liver remains unremarkable. Gallbladder is mildly distended. There are several small gallstones. This is similar compared to the prior study. Right kidney demonstrates a nonobstructing 2 mm calcification at its lower pole. It is negative for hydronephrosis. Left kidney shows interval development of hydroureteronephrosis. Several calcifications at the mid and lower pole are noted which are nonobstructive. There is a trace amount of left perinephric infiltrative change. There is a 6 mm obstructing calculus proximal left ureter. More distal aspects of the ureters showed no evidence for distention. Bladder is midline. Artifact from the patient's total left hip prosthetic and obscures detail. Bowel pattern overall is nonobstructive.. IMPRESSION: 1. 6 mm obstructing calculus proximal left ureter. 2. Moderate left hydroureteronephrosis. 3. Multiple left and to a lesser extent right renal nonobstructing calcifications. 4. Several small gallstones and a moderately distended gallbladder. The above report was generated using voice recognition software. It may contain grammatical, syntax or spelling errors. Electronically signed by: Ross Cabral M.D. 03/10/2018 3:58 PM Dictated Date/Time: 03/10/2018 3:52 PM
[2018-03-10] MEDS ORDERED: WARFARIN SOD 3 MG TAB PO SCH (16:00)
[2018-03-10] MEDS: LACTATED RINGER'S 1000ML 1,000 ML IV SCH ×2 (16:13→21:53)
[2018-03-10] MEDS ORDERED: SODIUM CHLORIDE 0.9% 500ML 500 ML IV SCH (16:45)
[2018-03-10] MEDS ORDERED: PHYTONADIONE 5 MG TAB PO ONE (17:15)
--- NOTE | 2018-03-10 17:56 | EMERGENCY ROOM VISIT NOTE ---
History First contact with patient: 10:20 Chief Complaint: WEAKNESS Stated Complaint: HYPOXIA,SEPSIS Nursing Triage Summary: Patient presents to ER via EMS. Per EMS, patient is a resident from [facility]. Patient c/o of lethargy, weakness, low grade fever, poor oral intake and paleness. BP 88/46 @ [facility], 100/60 enroute. Hx. of recurrent UTI. Patient is incontinent of urine. History of Present Illness The patient is a 87 year old female who presents to the Emergency Room via ambulance from the [facility] with complaints of "illness/weakness". The patient has a complex medical history and was brought here via EMS and much of the history was derived from the nurse who took report from EMS and the patient. Patient has a history of recurrent UTI, currently on Keflex for prevention. Yesterday and today she has had decreased appetite, and lethargy. She is now requiring oxygen. She normally does not require oxygen at baseline. There was questionable fever last night. Patient notes dysuria, increased frequency and urgency. She also notes chronic constipation. There is been a strong odor to the urine. She denies any shortness of breath, chest pain, lightheadedness, dizziness, nausea, vomiting, diarrhea. Review of Systems A complete 10-point Review of Systems was discussed with the patient, with pertinent positives and negatives listed in the History of Present Illness. All remaining Review of Systems questions can be considered negative unless otherwise specified. Past Medical/Surgical History Medical Problems: (1) Anticoagulated on Coumadin (2) Atrial fibrillation (3) CAD (coronary artery disease) (4) Depression (5) Fall (6) GERD (gastroesophageal reflux disease) (7) History of DVT (deep vein thrombosis) (8) HLD (hyperlipidemia) (9) HTN (hypertension) (10) Hypothyroidism (11) Hypoxia (12) Migraines (13) Normal colonoscopy (14) NSTEMI (non-ST elevated myocardial infarction) (15) Right hip pain (16) Sepsis (17) Small bowel obstruction (18) UTI (urinary tract infection) (19) UTI (urinary tract infection) Surgical Problems: (1) H/O total hip arthroplasty (2) History of appendectomy (3) History of cataract surgery (4) S/P knee replacement (5) Status post right partial knee replacement Family History Diabetes mellitus FH: CAD (coronary artery disease) Hypertension Pancreatic cancer Social History Smoking Status: Never Smoker Smokeless Tobacco Use: No Alcohol Use: none Drug Use: none Housing Status: [facility] Occupation Status: retired Current/Historical Medications Scheduled Aspirin (Aspirin EC Low Dose), 81 MG PO QAM Atenolol (Tenormin), 12.5 MG PO HS Atorvastatin (Lipitor), 20 MG PO HS Cephalexin Monohydrate (Keflex), 250 MG PO HS Cholecalciferol (Vitamin D3), 2,000 UNIT PO HS Citalopram Hydrobromide (Citalopram Hydrobromide), 1 TAB PO DAILY Docusate Sodium (Colace), 100 MG PO BID Gabapentin (Gabapentin), 100 MG PO HS Levothyroxine Sodium (Synthroid), 25 MCG PO DAILY Mirtazapine (Remeron), 15 MG PO HS Oxybutynin Chloride (Ditropan), 5 MG PO BID Pantoprazole (Protonix), 40 MG PO DAILY Warfarin Sod (Coumadin), 1.5 MG PO PM Scheduled PRN Acetaminophen (Tylenol), 650 MG PO Q4H PRN for GENERAL DISCOMFORT Amoxicillin (Amoxil), 2,000 MG PO UD PRN for DENTAL APPT Loperamide Hcl (Loperamide Hcl), 10 ML PO BID PRN for Diarrhea Oxycodone/Acetaminophen 5MG/325MG (Percocet 5MG/325MG), 1.5 TAB PO BID PRN for SEVERE PAIN Polyethylene Glycol 3350 (Miralax), 17 GM PO QAM PRN for Constipation Tramadol (Ultram), 50 MG PO Q4H PRN for Pain Physical Exam Vital Signs Date Time Temp Pulse Resp B/P (MAP) Pulse Ox O2 Delivery O2 Flow Rate FiO2 03/10/18 11:32 79 17 96 03/10/18 11:31 76/35 03/10/18 11:17 80 15 92 03/10/18 11:02 79 21 94 03/10/18 11:00 82/51 03/10/18 10:47 78 21 95 03/10/18 10:46 90/59 03/10/18 10:32 80 22 95 03/10/18 10:28 80 03/10/18 10:21 95/48 03/10/18 10:18 95 Nasal Cannula 03/10/18 10:17 89 Room Air 03/10/18 10:17 36.8 75 16 95/48 89 Room Air Physical Exam VITAL SIGNS - Vital signs and nursing notes were reviewed. Patient is hypotensive. GENERAL -87-year-old female appearing her stated age who is in no acute distress but does appear to be tired. There is a strong odor at bedside. Communicates well with provider and answers questions appropriately. SKIN - Without rashes. No meningeal or petechial rash. HEAD - NC/AT. EYES - PERRL with EOMI bilaterally. Sclera anicteric. EARS - No deformities of external structures noted on gross examination bilaterally. NOSE - Midline and without cyanosis. No epistaxis or purulent drainage noted. MOUTH/OROPHARYNX - Without perioral cyanosis. Buccal mucosa pink and moist and without leukoplakia. NECK -no nuchal rigidity. LUNGS - Chest wall symmetric without accessory muscle use, intercostals retractions, or central cyanosis. Normal vesicular breath sounds CTA B/L. No wheezes, rales, or rhonchi appreciated. CARDIAC - RRR with S1/S2. No murmur, rubs, or gallops appreciated. ABDOMEN - Abdominal contour normal without pulsations or visible masses. BS normoactive all four quadrants. No tenderness, palpable masses, hepatosplenomegaly, or ascites noted. EXTREMITIES - No clubbing or peripheral cyanosis. No pretibial edema present. + 5/5 strength noted in UE/LE bilaterally. NEUROLOGIC - Cranial nerves II through XII grossly intact. Sensory intact to light touch throughout. PSYCH - A&Ox3 and cooperates fully with examiner. Pt is very pleasant and interacts well with examiner. Medical Decision & Procedures ER Provider Diagnostic Interpretation: CHEST ONE VIEW PORTABLE CLINICAL HISTORY: 87 years-old Female presenting with Sepsis. TECHNIQUE: Portable upright AP view of the chest was obtained. COMPARISON: 07/29/2016. FINDINGS: Atherosclerosis of the aortic arch. Cardiac silhouette top normal in size. No focal opacity. No large effusion or pneumothorax. Osseous structures normal. Upper abdomen normal. IMPRESSION: 1. No acute cardiopulmonary disease. Electronically signed by: Artem Mars M.D. 03/10/2018 10:58 AM Dictated Date/Time: 03/10/2018 10:57 AM Laboratory Results Test 03/10/18 10:48 03/10/18 10:56 03/10/18 11:30 Activated Partial Thromboplast Time 49.0 SECONDS (21.0-31.0) Partial Thromboplastin Ratio 1.9 D-Dimer 750 ug/L FEU (0-500) Troponin I < 0.015 ng/ml (0-0.045) Procalcitonin 41.19 ng/ml (0-0.5) Thyroid Stimulating Hormone (TSH) 1.240 uIu/ml (0.300-4.500) Bedside Lactic Acid Venous 3.84 mmol/L (0.90-1.70) Urine Color DK YELLOW Urine Appearance TURBID (CLEAR) Urine pH 6.0 (4.5-7.5) Urine Specific [place] 1.020 (1.000-1.030) Urine Protein 2+ (NEG) Urine Glucose (UA) NEG (NEG) Urine Ketones TRACE (NEG) Urine Occult Blood 3+ (NEG) Urine Nitrite NEG (NEG) Urine Bilirubin NEG (NEG) Urine Urobilinogen NEG (NEG) Urine Leukocyte Esterase LARGE (NEG) Urine WBC (Auto) >30 /hpf (0-5) Urine RBC (Auto) 10-30 /hpf (0-4) Urine Hyaline Casts (Auto) 1-5 /lpf (0-5) Urine Epithelial Cells (Auto) >30 /lpf (0-5) Urine Bacteria (Auto) 4+ (NEG) Urine Crystals CALCIUM OXALATE (NONE Urine Pathogenic Casts /lpf (0) Urine Yeast (Auto) (NONE PRSENT) Medications Administered Medications (Trade) Dose Ordered Sig/Jamilah Route Start Time Stop Time Status Last Admin Dose Admin Sodium Chloride 1,000 ml @ 999 mls/hr Q1H1M ONCE IV 03/10/18 10:24 03/10/18 11:24 DC 03/10/18 11:40 999 MLS/HR Sodium Chloride 1,000 ml @ 999 mls/hr Q1H1M STAT IV 03/10/18 11:25 03/10/18 12:25 DC 03/10/18 12:23 999 MLS/HR Vancomycin HCl (Vancomycin 1gm Ed/Asu Omnicell) 1 gm NOW STAT IV 03/10/18 11:25 03/10/18 11:27 DC 03/10/18 12:10 1 GM Piperacillin Sod/ Tazobactam Sod (Zosyn Iv) 4.5 gm NOW STAT IV 03/10/18 11:25 03/10/18 11:27 DC 03/10/18 11:45 4.5 GM Medical Decision Patient was seen and evaluated as above in room B7. Review was performed of nursing notes and vital signs. She is hypotensive. After obtaining a thorough history and physical examination the above work up was performed. She presents to us today with concern of lethargy, decreased appetite and recurrent UTI. Her presentation is concerning for that of sepsis. She is conversing well and considering her vital signs is dehydrated but is tired. She was bolused with fluid. I suspect a large component of her hypotension to be hypovolemia secondary to dehydration. Between the 2 L ordered and the fluid given with antibiotics this should reach and slightly surpass the 30 mL/kg recommendation in a respectable timeframe. Repeat blood pressure does reveal elevated diastolic after some fluids. One of the subsequent BP measurements reveal a drop in BP but fluids are still infusing. Broad-spectrum antibiotic converge was initiated to include Zosyn and vancomycin. No abdominal pain. CBC does reveal leukocytosis of 24.56. Hemoglobin 10.9. Coags do reveal an INR 5.4. Chemistry panel does reveal lactic acidosis at 3.4. TSH is normal. Creatinine is 1.95. Urinalysis does reveal 3+ occult blood, and suspicion/evidence of UTI. I believe that the broad-spectrum coverage provided should cover her likely septic state from UTI with cultures pending. I promptly discussed the case with the hospitalist after discussing this with the attending physician. I do believe that further evaluation and management in the inpatient setting is warranted, with careful trending of her BP. Of additional note a chest x-ray was also performed and found to be negative. Again I believe the source of her infection is likely urine and the hospitalist has ordered a CT to eval for presence of stone. Her EKG revealed normal sinus rhythm, 78 bpm. T-wave normality noted in the inferior leads. Please refer to further documentation regarding her stay. Case was discussed with the attending physician. I attest that I have personally reviewed the patient medication list. I attest that I have reviewed the patient's blood pressure and it was found to be low, this will require intervention with current IVF and monitoring with possible need for pressors if after adequate IVF a more stable and maintained BP is not achieved. In the evaluation and treatment of this patient the following differential diagnoses were entertained: Sepsis, UTI, infected renal calculi, pneumonia, among others. Impression Primary Impression: Sepsis Additional Impression: UTI (urinary tract infection) Departure Information Dispostion Admitted as an inpatient Condition FAIR Referrals TIANNANORWOOD ROWAN RICHARDS (PCP) Forms HOME CARE DOCUMENTATION FORM, IMPORTANT VISIT INFORMATION Patient Instructions [facility] Problem Qualifiers
--- NOTE | 2018-03-10 18:41 | Progress Note ---
Progress Note Date of Service March 10, 2018. Progress Note Attending note: Patient remains persistently hypotensive in spite of giving IV fluid bolus and broad-spectrum antibiotic with IV vancomycin and Zosyn Repeat lactic acid shows worsening from 3->4 CT abdomen and pelvis without contrast shows left-sided 6 mm obstructing renal stone with left-sided hydroureteronephrosis UA grossly positive Severe sepsis due to urinary tract infection/pyelonephritis/obstructed renal stone on the left side Case discussed with premix operator concentrate Dr. Pagan Patient will be is transferred to intensive care unit for close monitoring of hemodynamics She is full code as per the record from [facility] Spoke with patient's son Osmani Marcelino phone number: [phone] Updated patient's status Son is agreeable for urologic procedure/ICU transfer Confirms that patient does have a living will, which states she does not want to be on life support in the setting of a reversible/terminal vegetative state Okay for invasive procedure/life-support if there is a reasonable chance for recovery Urology consult requested Discussed with on-call urology Dr. Pittman from [facility] physician group Dr. Pittman will be in-house later today patient will need emergent urology procedure /ureteric stent placement Patient is on Coumadin for history of A. fib INR more than 5 Given 5 mg of p.o. vitamin K Repeat PT/INR at 8 PM Discussed with Urology - okay to proceed for stent placement as patient is given vitamin K already Patient is ordered n.p.o.
--- NOTE | 2018-03-10 19:25 | Critical Care Consultation ---
Critical Care Consultation Date of Consultation: March 10, 2018. Attending Physician: Daniel Nath DO Reason for Consultation: Acute hypoxic respiratory failure in the setting of sepsis 2/2 likely nephrolithiasis History of Present Illness 87 year old female is being transferred to the ICU for further evaluation of acute hypoxic respiratory failure. The patient was admitted earlier today for lethargy and was found to be hypoxic and septic. Patient was found to have left obstructive nephrolithiasis. At the bedside, the patient is confused--oriented to person, but not to time or place. Past Medical/Surgical History HLD, HTN, Afib on coumadin , depression, GERD, SBO Family History Diabetes mellitus FH: CAD (coronary artery disease) Hypertension Pancreatic cancer Social History Smoking Status: Never Smoker Smokeless Tobacco Use: No Alcohol Use: none Drug Use: none Housing Status: [facility] Occupation Status: retired Allergies Coded Allergies: Omeprazole (Verified Allergy, Unknown, distal edema-none with pantoprozole , 03/10/18) Home Medications Scheduled Aspirin (Aspirin EC Low Dose), 81 MG PO QAM Atenolol (Tenormin), 12.5 MG PO HS Atorvastatin (Lipitor), 20 MG PO HS Cephalexin Monohydrate (Keflex), 250 MG PO HS Cholecalciferol (Vitamin D3), 2,000 UNIT PO HS Citalopram Hydrobromide (Citalopram Hydrobromide), 1 TAB PO DAILY Docusate Sodium (Colace), 100 MG PO BID Gabapentin (Gabapentin), 100 MG PO HS Levothyroxine Sodium (Synthroid), 25 MCG PO DAILY Mirtazapine (Remeron), 15 MG PO HS Oxybutynin Chloride (Ditropan), 5 MG PO BID Pantoprazole (Protonix), 40 MG PO DAILY Warfarin Sod (Coumadin), 1.5 MG PO PM Scheduled PRN Acetaminophen (Tylenol), 650 MG PO Q4H PRN for GENERAL DISCOMFORT Amoxicillin (Amoxil), 2,000 MG PO UD PRN for DENTAL APPT Loperamide Hcl (Loperamide Hcl), 10 ML PO BID PRN for Diarrhea Oxycodone/Acetaminophen 5MG/325MG (Percocet 5MG/325MG), 1.5 TAB PO BID PRN for SEVERE PAIN Polyethylene Glycol 3350 (Miralax), 17 GM PO QAM PRN for Constipation Tramadol (Ultram), 50 MG PO Q4H PRN for Pain Current Inpatient Medications Current Inpatient Medications Medications (Trade) Dose Ordered Sig/Jamilah Route Start Time Stop Time Status Last Admin Dose Admin Miscellaneous Information (Consult) 1 ea UD PRN N/A 03/10/18 12:45 04/09/18 12:44 Miscellaneous Information (Consult) 1 ea UD PRN N/A 03/10/18 12:00 04/09/18 11:59 Atorvastatin Calcium (Lipitor Tab) 20 mg HS PO 03/10/18 21:00 04/09/18 20:59 Cholecalciferol (Vitamin D Tab) 2,000 inter.unit HS PO 03/10/18 21:00 04/09/18 20:59 Citalopram Hydrobromide (celeXA TAB) 20 mg DAILY PO 03/11/18 09:00 04/10/18 08:59 Gabapentin (Neurontin Cap) 100 mg HS PO 03/10/18 21:00 04/09/18 20:59 Levothyroxine Sodium (Synthroid Tab) 25 mcg DAILYBB PO 03/11/18 06:30 04/10/18 06:29 Mirtazapine (Remeron Tab) 15 mg HS PO 03/10/18 21:00 04/09/18 20:59 Oxybutynin Chloride (Ditropan Tab) 5 mg BID PO 03/10/18 21:00 04/09/18 20:59 Pantoprazole Sodium (Protonix Tab) 40 mg DAILY PO 03/11/18 09:00 04/10/18 08:59 Acetaminophen (Tylenol Tab) 650 mg Q4H PRN PO 03/10/18 12:00 04/09/18 11:59 Al Hydrox/Mg Hydrox/Simethicone (Maalox Max Susp) 15 ml Q4H PRN PO 03/10/18 12:00 04/09/18 11:59 Magnesium Hydroxide (Milk Of Magnesia Susp) 30 ml Q12H PRN PO 03/10/18 12:00 04/09/18 11:59 Ondansetron HCl (Zofran Inj) 4 mg Q6H PRN IV 03/10/18 12:00 04/09/18 11:59 Nitroglycerin (Nitrostat Tab) 0.4 mg UD PRN SL 03/10/18 12:00 04/09/18 11:59 Polyethylene (Miralax Powder Packet) 17 gm DAILY PRN PO 03/10/18 12:00 04/09/18 11:59 Lactated Ringer's 1,000 ml @ 125 mls/hr Q8H IV 03/10/18 13:30 04/09/18 13:29 03/10/18 16:13 125 MLS/HR Albuterol/ Ipratropium (Duoneb) 3 ml QIDR INH 03/10/18 16:00 04/09/18 15:59 03/10/18 15:03 3 ML Piperacillin Sod/ Tazobactam Sod 3.375 gm/Dextrose 115 ml @ 28.75 mls/ hr Q12H IV 03/10/18 20:00 03/20/18 19:59 Review of Systems unable to obtain due to patients mental status Physical Exam Date Time Temp Pulse Resp B/P (MAP) Pulse Ox O2 Delivery O2 Flow Rate FiO2 03/10/18 15:50 37.6 90 19 115/71 (86) 100 Nasal Cannula 5.0 03/10/18 15:04 86 20 100 Nasal Cannula 5.0 03/10/18 14:20 36.8 77 18 97/57 (70) 91 Nasal Cannula 2.0 03/10/18 12:25 76 19 80/54 97 03/10/18 12:00 96 Nasal Cannula 03/10/18 11:32 79 17 96 03/10/18 11:31 76/35 03/10/18 11:17 80 15 92 03/10/18 11:02 79 21 94 03/10/18 11:00 82/51 03/10/18 10:47 78 21 95 03/10/18 10:46 90/59 03/10/18 10:32 80 22 95 03/10/18 10:28 80 03/10/18 10:21 95/48 03/10/18 10:18 95 Nasal Cannula 03/10/18 10:17 89 Room Air 03/10/18 10:17 36.8 75 16 95/48 89 Room Air General Appearance: well-appearing, WD/WN, no apparent distress Head: normocephalic, atraumatic Eyes: PERRLA Respiratory: breath sounds normal, clear to auscultation, no respiratory distress, no tenderness Cardiovasular: regular rate/rhythm, normal S1S2, no M/G/R Abdomen: non tender, normal bowel sounds, no rebound, no masses, no guarding Laboratory Results Last 24 Hours Test 03/10/18 10:48 03/10/18 10:56 03/10/18 11:13 03/10/18 11:30 Prothrombin Time 55.3 SECONDS Prothromb Time International Ratio 5.4 Activated Partial Thromboplast Time 49.0 SECONDS Partial Thromboplastin Ratio 1.9 D-Dimer 750 ug/L FEU Sodium Level 139 mmol/L Potassium Level 4.1 mmol/L Chloride Level 106 mmol/L Carbon Dioxide Level 25 mmol/L Anion Gap 8.0 mmol/L Blood Urea Nitrogen 26 mg/dl Creatinine 2.13 mg/dl Est Creatinine Clear Calc Drug Dose 16.6 ml/min Estimated GFR () 23.8 Estimated GFR (Non- 20.6 BUN/Creatinine Ratio 12.1 Random Glucose 116 mg/dl Calcium Level 8.1 mg/dl Total Bilirubin 0.8 mg/dl Aspartate Amino Transf (AST/SGOT) 36 U/L Alanine Aminotransferase (ALT/SGPT) 19 U/L Alkaline Phosphatase 90 U/L Troponin I < 0.015 ng/ml Total Protein 6.4 gm/dl Albumin 2.6 gm/dl Globulin 3.8 gm/dl Albumin/Globulin Ratio 0.7 Procalcitonin 41.19 ng/ml Thyroid Stimulating Hormone (TSH) 1.240 uIu/ml Bedside Lactic Acid Venous 3.84 mmol/L White Blood Count 24.56 K/uL Red Blood Count 3.66 M/uL Hemoglobin 10.9 g/dL Hematocrit 34.3 % Mean Corpuscular Volume 93.7 fL Mean Corpuscular Hemoglobin 29.8 pg Mean Corpuscular Hemoglobin Concent 31.8 g/dl Platelet Count 204 K/uL Mean Platelet Volume 8.7 fL Neutrophils (%) (Auto) 89.5 % Lymphocytes (%) (Auto) 3.8 % Monocytes (%) (Auto) 5.7 % Eosinophils (%) (Auto) 0.2 % Basophils (%) (Auto) 0.1 % Neutrophils # (Auto) 22.00 K/uL Lymphocytes # (Auto) 0.93 K/uL Monocytes # (Auto) 1.40 K/uL Eosinophils # (Auto) 0.04 K/uL Basophils # (Auto) 0.02 K/uL RDW Standard Deviation 55.5 fL RDW Coefficient of Variation 16.3 % Immature Granulocyte % (Auto) 0.7 % Immature Granulocyte # (Auto) 0.17 K/uL Urine Color DK YELLOW Urine Appearance TURBID Urine pH 6.0 Urine Specific [place] 1.020 Urine Protein 2+ Urine Glucose (UA) NEG Urine Ketones TRACE Urine Occult Blood 3+ Urine Nitrite NEG Urine Bilirubin NEG Urine Urobilinogen NEG Urine Leukocyte Esterase LARGE Urine WBC (Auto) >30 /hpf Urine RBC (Auto) 10-30 /hpf Urine Hyaline Casts (Auto) 1-5 /lpf Urine Epithelial Cells (Auto) >30 /lpf Urine Bacteria (Auto) 4+ Urine Crystals CALCIUM OXALATE Urine Pathogenic Casts /lpf Urine Yeast (Auto) Test 03/10/18 15:20 03/10/18 15:23 03/10/18 18:29 Sodium Level 140 mmol/L Potassium Level 4.0 mmol/L Chloride Level 108 mmol/L Carbon Dioxide Level 22 mmol/L Anion Gap 10.0 mmol/L Blood Urea Nitrogen 25 mg/dl Creatinine 1.95 mg/dl Est Creatinine Clear Calc Drug Dose 18.1 ml/min Estimated GFR () 26.5 Estimated GFR (Non- 22.9 BUN/Creatinine Ratio 12.8 Random Glucose 121 mg/dl Calcium Level 7.3 mg/dl Lactic Acid Level 4.9 mmol/L Assessment & Plan 87 yo female being evaluated in the ICU for acute hypoxic resp failure in the setting of sepsis-- likely 2/2 ascending UTI in the setting of nephrolithiasis. PMH includes; HLD, HTN, Afib on coumadin , depression, GERD, SBO Assessment; The patient was admitted after a couple days of lethargy and was found in the ED to have labs and vitals consistent with Sepsis; WBC of 24.56, lactic acid of 4/9, procalcitonin of 41.19. Patients vitals significant for hypotension, hypoxia and temp of 37.6. In addition, the patient was found to have MEGHAN---2.13 on admission. INR was supratherapeutic at 5.4. She was found to have a UA + for infection. CT demonstrated obstructive stone in the left ureter and left kidney hydronephrosis. Patient was started on IVF, Zosyn, and with a consult out to urology. On the floor, the patient experienced worsening hypoxia. Patient was assessed by the ICU team and was found to be 100% on 5 L NC. Plan; -Continue IV abx. -Starting FFP in light of INR and likely urologic surgery. -Call out to urology -Contact family to discuss code status Neuro -Patient is confused; oriented to person, but not to place and time -Will contact family to elucidate patients baseline and to review code status -Depression--cont. citalopram, mirtazapine Cardiac -Patient has been hypotensive -EKG showed NSR--decreased t wave amplitude -NSTEMI in 2008--Cath and ECHO performed at that time--normal coronary arteries , EF 60-65% -Cont. ASA, Lipitor Pulm -CXR--unremarkable for cardiopulm process -Hypoxia--100% on 5 L -ABG's pending GI -Cont PPI -Bowel regimen PRN--Miralax, milk of mag Renal/lytes -Post renal MEGHAN -Cr 2.13 on admission-->trending down 1.95 -No derangements of lytes--continue to closely monitor Endo -No documented history of DM -Sugars have been stable -Hypothyroid--TSH-1.2--cont. levothyroxine Heme -Anemia--Hgb 10.9, HCT 34.3 -INR 5.4 on coumadin--starting FFP, 4 units ID -Ascending UTI/possible pyelonephritis--UA--+LE, >30 WBC, 4+ bacteria -Treated with IV Zosyn -UCx pending -BCx pending Lines -PIV intact -MIVF--LR @125 mls/hr DVT ppx -SCD/TEDS Resuscitation status -Full code--will discuss with family Resident Physician Supervision Note: Dr. Mckee was resident physician during care of patient. I separately evaluated patient and did history and exam. I discussed the case with the resident and generally agree with the findings and plan. Patient going to the operating room for ureteral stent with Dr. Pittman. Patient is clearly septic. I had an extensive discussion with the patient's son , the patient is currently altered she is unclear of her exact location and is unclear with the year 1973. Son has provided consent for endotracheal intubation mechanical ventilation, central venous access, arterial line, bronchoscopy, blood product administration. In discussion with the patient's longterm goal should she experience a cardiac arrest the patient would not want heroic measures completed. He is comfortable with intubation should she have a respiratory arrest. CODE STATUS will be updated this is a change from the above documentation, this conversation took place after the resident's completion of the note. I have personally spent 70 minutes of critical care time in the direct management of this patient. This is a life/limb threatening event. This includes time spent evaluating patient, direct bedside care, chart review, placing orders, interpretation of diagnostic studies, discussion with consultants, patient, and/or family members regarding treatment decisions, as well as other required patient management activities. This time is exclusive of all separately billable procedures, and teaching time and separate from and in addition to any other critical care service time. Documented By: Shine Pagan DO
[2018-03-10] MEDS: PIPERACILL/TAZOBAC IV 3.375 GM in D5W 100ML IV SCH (19:39)
--- NOTE | 2018-03-10 19:46 | Urology Consultation ---
History General Date of Service: March 10, 2018. Primary Care Physician: Jovon Moran Pt seen a urologist before?: Yes If yes, why?: Nephrolithiasis; urinary tract infections; incontinence History of Present Illness 87-year-old female with complex medical history and a long history of kidney stones as well as recurrent urinary tract infections and incontinence, presenting to the emergency room secondary to a mental status change in general ill feeling Found to exhibit signs of septicemia/SIRS CT: Numerous left renal stones as well as a left proximal ureteral stone associated hydronephrosis and perinephric stranding Leukocytosis of 24,000; lactic acid 4.9 UA suggestive of infection On evaluation today, she is pleasantly confused and somnolent -having a hard time carrying on a conversation She denies significant pain at present Speaking with her son, he reports that she was in her normal state of health yesterday with good mentation, and experiencing acute decompensation today Since arrival, she has been aggressively resuscitated and empirically covered with broad-spectrum antibiotics Despite this, her blood pressure remains low and her mentation has not improved Laboratory Labs were reviewed and are within normal limits unless listed below. Labs are available in the chart and at [facility] Problem List Medical Problems: (1) Abdominal pain Status: Acute (2) Bowel obstruction Status: Acute (3) Gastroenteritis Status: Acute (4) Leukocytosis Status: Acute (5) Low back pain Status: Acute (6) Sepsis Status: Acute Past History A Fib, coronary artery disease, deep vein thrombosis, depression, high cholesterol, hypertension, kidney stones, urinary tract infection Past Surgical History: orthopedic surgery, other Family History Diabetes mellitus FH: CAD (coronary artery disease) Hypertension Pancreatic cancer Social History Hx Tobacco Use In Past Year?: No Smoking: non-smoker [facility] Occupation status: retired Immunizations History of Influenza Vaccine: Yes Influenza Vaccine Date: Aug 03, 2009 History of Tetanus Vaccine?: Yes History of Pneumococcal: Yes History of Hepatitis B Vaccine: No History of MDRO No Allergies Coded Allergies: Omeprazole (Verified Allergy, Unknown, distal edema-none with pantoprozole , 03/10/18) Medications Home Medications: Home Meds and Scripts Medications Dose Route/Sig Max Daily Dose Days Date Category Dose Instructions Loperamide Hcl 1 Mg/5 Ml Liq 10 Ml PO BID PRN 03/10/18 Reported Coumadin (Warfarin Sod) 3 Mg Tab 1.5 Mg PO PM 03/10/18 Reported Ditropan (Oxybutynin Chloride) 5 Mg Tab 5 Mg PO BID 03/10/18 Reported Synthroid (Levothyroxine Sodium) 25 Mcg Tab 25 Mcg PO DAILY 03/10/18 Reported Gabapentin 100 Mg Cap 100 Mg PO HS 03/10/18 Reported Citalopram Hydrobromide 20 Mg Tab 1 Tab PO DAILY 08/22/17 Reported Keflex (Cephalexin Monohydrate) 250 Mg Cap 250 Mg PO HS 08/22/17 Reported Percocet 5MG/325MG (Oxycodone/Acetaminophen) Tab 1.5 Tab PO BID PRN 08/22/17 Reported PAIN Ultram (Tramadol HCl) 50 Mg Tab 50 Mg PO Q4H PRN 03/15/17 Reported Amoxil (Amoxicillin) 500 Mg Cap 2,000 Mg PO UD PRN 01/08/17 Reported TAKE 4 CAPS 1 HOUR PRIOR TO DENTAL APPOINTMENTS Tylenol (Acetaminophen) 325 Mg Tab 650 Mg PO Q4H PRN 01/08/17 Reported MAX 3GM/APAP 24 HRS Colace (Docusate Sodium) 100 Mg Cap 100 Mg PO BID 01/08/17 Reported Lipitor (Atorvastatin Calcium) 20 Mg Tab 20 Mg PO HS 01/08/17 Reported Vitamin D3 (Cholecalciferol) 1,000 Unit Tab 2,000 Unit PO HS 01/08/17 Reported Miralax (Polyethylene Glycol 3350) 1 Pow Pow 17 Gm PO QAM PRN 01/08/17 Reported Remeron (Mirtazapine) 15 Mg Tab 15 Mg PO HS 01/08/17 Reported Aspirin EC Low Dose (Aspirin) 81 Mg Ectab 81 Mg PO QAM 05/17/16 Reported Protonix (Pantoprazole Sodium) 40 Mg Tab 40 Mg PO DAILY 12/27/15 Reported Tenormin (Atenolol) 25 Mg Tab 12.5 Mg PO HS 09/01/09 Reported Inpatient Medications: Current Inpatient Medications Medications (Trade) Dose Ordered Sig/Jamilah Route Start Time Stop Time Status Last Admin Dose Admin Miscellaneous Information (Consult) 1 ea UD PRN N/A 03/10/18 12:45 04/09/18 12:44 Miscellaneous Information (Consult) 1 ea UD PRN N/A 03/10/18 12:00 04/09/18 11:59 Atorvastatin Calcium (Lipitor Tab) 20 mg HS PO 03/10/18 21:00 04/09/18 20:59 Cholecalciferol (Vitamin D Tab) 2,000 inter.unit HS PO 03/10/18 21:00 04/09/18 20:59 Citalopram Hydrobromide (celeXA TAB) 20 mg DAILY PO 03/11/18 09:00 04/10/18 08:59 Gabapentin (Neurontin Cap) 100 mg HS PO 03/10/18 21:00 04/09/18 20:59 Levothyroxine Sodium (Synthroid Tab) 25 mcg DAILYBB PO 03/11/18 06:00 04/10/18 06:29 Mirtazapine (Remeron Tab) 15 mg HS PO 03/10/18 21:00 04/09/18 20:59 Oxybutynin Chloride (Ditropan Tab) 5 mg BID PO 03/10/18 21:00 04/09/18 20:59 Pantoprazole Sodium (Protonix Tab) 40 mg DAILY PO 03/11/18 09:00 04/10/18 08:59 Acetaminophen (Tylenol Tab) 650 mg Q4H PRN PO 03/10/18 12:00 04/09/18 11:59 Al Hydrox/Mg Hydrox/Simethicone (Maalox Max Susp) 15 ml Q4H PRN PO 03/10/18 12:00 04/09/18 11:59 Magnesium Hydroxide (Milk Of Magnesia Susp) 30 ml Q12H PRN PO 03/10/18 12:00 04/09/18 11:59 Ondansetron HCl (Zofran Inj) 4 mg Q6H PRN IV 03/10/18 12:00 04/09/18 11:59 Nitroglycerin (Nitrostat Tab) 0.4 mg UD PRN SL 03/10/18 12:00 04/09/18 11:59 Polyethylene (Miralax Powder Packet) 17 gm DAILY PRN PO 03/10/18 12:00 04/09/18 11:59 Lactated Ringer's 1,000 ml @ 125 mls/hr Q8H IV 03/10/18 13:30 04/09/18 13:29 03/10/18 16:13 125 MLS/HR Albuterol/ Ipratropium (Duoneb) 3 ml QIDR INH 03/10/18 16:00 04/09/18 15:59 03/10/18 19:39 3 ML Piperacillin Sod/ Tazobactam Sod 3.375 gm/Dextrose 115 ml @ 28.75 mls/ hr Q12H IV 03/10/18 20:00 03/20/18 19:59 Review of Systems Review of Systems Constitutional: + fever Eyes: No see HPI, No blurred vision, No double vision, No eye pain, No loss of night vision, No problem reported Neurological: + problem reported Endocrine: No see HPI, No excessive thirst, No too hot, No too cold, No tired/ sluggish, No problem reported Gastrointestinal: + abdominal pain Cardiovascular: + irregular heartbeat, No heart murmur, No chest pain, No angina, No palpitations, No swelling ankles/feet, No problem reported Respiratory: No see HPI, No shortness of breath, No wheezing, No coughing up blood, No chronic cough, No problem reported Skin: No see HPI, No rash, No boils, No dry skin, No problem reported Musculoskeletal: No see HPI, No joint pain, No neck pain, No back pain, No arthritis, No problem reported Blood / Lymphatic: + bleed easily, No bruise easily, No swollen glands, No problem reported Ears / Nose / Throat: No see HPI, No hearing loss, No sinus, No hoarse voice, No sore throat, No problem reported Psychologic / Mental: + trouble remembering Female : + problem reported All Other Systems: Reviewed and Negative Physical Exam Vital Signs: Vital Signs Past 12 Hours Date Time Temp Pulse Resp B/P (MAP) Pulse Ox O2 Delivery O2 Flow Rate FiO2 03/10/18 18:45 96 2.0 03/10/18 16:00 96 Nasal Cannula 2.0 03/10/18 15:50 37.6 90 19 115/71 (86) 100 Nasal Cannula 5.0 03/10/18 15:04 86 20 100 Nasal Cannula 5.0 03/10/18 14:20 36.8 77 18 97/57 (70) 91 Nasal Cannula 2.0 03/10/18 12:25 76 19 80/54 97 03/10/18 12:00 96 Nasal Cannula 03/10/18 11:32 79 17 96 03/10/18 11:31 76/35 03/10/18 11:17 80 15 92 03/10/18 11:02 79 21 94 03/10/18 11:00 82/51 03/10/18 10:47 78 21 95 03/10/18 10:46 90/59 03/10/18 10:32 80 22 95 03/10/18 10:28 80 03/10/18 10:21 95/48 03/10/18 10:18 95 Nasal Cannula 03/10/18 10:17 89 Room Air 03/10/18 10:17 36.8 75 16 95/48 89 Room Air Physical Exam: General Appearance: + moderate distress (Hypotensive: Borderline tachycardic, difficulty maintaining a conversation) Eyes: bilateral eyes normal inspection ENT: hearing grossly normal Neck: no adenopathy Respiratory/Chest: no respiratory distress, no accessory muscle use Cardiovascular: + tachycardia Gastrointestinal: Abdomen: normal abdomen Bladder: normal bladder (Rowell catheter in place) Renal: cva tenderness Extremities: no pedal edema Neurologic/Psychiatric: + disoriented Skin: warm/dry Lymphatic: no adenopathy Assessment & Plan Assessment & Plan Obstructing left ureteral calculus with associated sepsis Continue broad-spectrum antibiotics and aggressive IV rehydration and resuscitation Plan for decompression of the kidney now in the form of cystoscopy left ureteral stent placement Discussed this plan extensively with the patient's son, Osmani (POA) - phone consents completed and placed on chart
[2018-03-10 19:58] LABS: CALCIUM 7.7 mg/dl (8.5-10.1); CREATININE 1.86 mg/dl (0.60-1.20); POTASSIUM 3.7 mmol/L (3.5-5.1)
[2018-03-10] MEDS ORDERED: CONRAY 60% 50 ML VIAL ONE (20:08)
[2018-03-10] MEDS ORDERED: PROPOFOL IV EMULSION 10 MG/ML 20 ML VIAL ONE (20:31)
--- NOTE | 2018-03-10 20:51 | [facility] Operative Report ---
Operative Report Operative Date March 10, 2018. Pre-Operative Diagnosis Obstructing left ureteral calculus with associated sepsis Post-Operative Diagnosis Obstructing left ureteral calculus with associated sepsis Procedure(s) Performed Cystoscopy, Left Ureteral Stent Insertion ([id number]) Surgeon Dr. Pittman Estimated Blood Loss 0cc Findings left sided bladder diverticulum Specimens None Anesthesia Type MAC Complication(s) none Disposition yes Surgical ICU Indications urosepsis, obstructing left ureteral stone Description of Procedure Patient was seen in ICU and an emergent consult basis secondary to urosepsis and obstructing left ureteral stone. Consents were reviewed and completed over the phone with her son who is her power of ip attorney. She was subsequently transported to the operating suite where she received appropriate sedation was placed in dorsal lithotomy position. She was actively receiving Zosyn at the start of the case. I began the case by passing a 22 [place] cystoscope with 30 lens. She had significant debris within the bladder. After clearing her bladder out, I was able to inspect and find the right ureteral orifice without difficulty. The left ureteral orifice, unfortunately, was harder to find. She has a left-sided bladder diverticulum as well as significant inflammation across the left maribel-bladder. After several minutes of surgery with 30 and 70 lens, was able to successfully identify this and cannulated with a sensor wire and a 6 [place] open-ended catheter. Wire was advanced to the kidney without difficulty which immediately resulted in urine draining from the left kidney. His urine was grossly purulent consistent with the preoperative diagnosis. A subsequent place a 6 [place] by 24 cm double-J ureteral stent seeing a good curl in the kidney as well as the bladder. The bladder is decompressed, new Rowell catheter inserted, and the case concluded. She was subsequently transported back to the ICU in stable condition. I attest to the content of the Intraoperative Record and any orders documented therein. Any exceptions are noted below.
[2018-03-10] MEDS: MIRTAZAPINE TAB 15 MG TAB PO SCH (21:00)
[2018-03-10] MEDS: ATORVASTATIN 20 MG TAB PO SCH (21:00)
[2018-03-10] MEDS: CHOLECALCIFEROL 1000 INTER.UNIT TAB PO SCH (21:00)
[2018-03-10] MEDS: OXYBUTYNIN CHLORIDE 5 MG TAB PO SCH (21:00)
[2018-03-10] MEDS: GABAPENTIN 100 MG CAP PO SCH (21:00)
--- NOTE | 2018-03-10 21:03 | DIAGNOSTIC IMAGING REPORT ---
RETROGRADE INCLUDES KUB CLINICAL HISTORY: CYSTO WITH STENT COMPARISON STUDY: CT scan dated 03/10/2018 FINDINGS: 6 seconds of fluoroscopic time was utilized. A single intraoperative fluoroscopic spot images provided for interpretation. There is left-sided nephrolithiasis. There is a probable proximal left ureteral calculus adjacent to a stent.. The proximal portion of a left-sided nephroureteral stent is visualized. IMPRESSION: 1. Intraoperative fluoroscopic spot image demonstrating the proximal portion of a left-sided nephroureteral stent 2. Left-sided nephrolithiasis Electronically signed by: Eliel Adkins M.D. 03/10/2018 9:01 PM Dictated Date/Time: 03/10/2018 8:59 PM
[2018-03-10] MEDS ORDERED: NOREPINEPHRINE BIT INJ 8 MG in DEXTROSE 5% 500ML 500 ML IV PRN (23:09)
[2018-03-11] VITALS (28 sets, daily range): BP systolic 78–113; BP diastolic 43–72; PULSE 70–84; TEMP 36.2–37.9; O2SAT 6–97; Ht 152.4 cm; Wt 71.7 kg
[2018-03-11 00:24] LABS: CALCIUM 7.2 mg/dl (8.5-10.1); CREATININE 1.8 mg/dl (0.60-1.20); POTASSIUM 3.8 mmol/L (3.5-5.1)
--- NOTE | 2018-03-11 00:51 | Anesthesiology Progress Note ---
Anesthesia Post Op Note Date & Time March 11, 2018 at 00:50 Vital Signs Pain Intensity: 0 Vital Signs Past 12 Hours Date Time Temp Pulse Resp B/P (MAP) Pulse Ox O2 Delivery O2 Flow Rate FiO2 03/11/18 00:01 Nasal Cannula 2.0 03/11/18 00:00 36.3 84 18 93/56 (68) 96 Nasal Cannula 2.0 03/10/18 23:30 88 16 74/40 (51) 94 Nasal Cannula 2.0 03/10/18 23:15 89 16 83/44 (57) 94 Nasal Cannula 2.0 03/10/18 23:09 89 16 74/40 (51) 94 Nasal Cannula 2.0 03/10/18 23:00 90 18 78/41 (53) 94 Nasal Cannula 2.0 03/10/18 22:15 95 18 84/45 (58) 95 Nasal Cannula 2.0 03/10/18 22:00 36.7 93 18 93/49 (64) 93 Nasal Cannula 2.0 03/10/18 21:45 98 18 81/52 (62) 95 Nasal Cannula 2.0 03/10/18 21:30 37 96 14 88/46 (58) 95 Nasal Cannula 2 03/10/18 21:20 98 14 86/55 (61) 95 Nasal Cannula 2 03/10/18 21:10 99 14 86/49 (66) 95 Nasal Cannula 2 03/10/18 21:00 100 12 87/47 (57) 95 Nasal Cannula 2 03/10/18 20:54 37.5 100 14 82/69 (72) 95 Nasal Cannula 2 03/10/18 20:00 93 Nasal Cannula 2.0 03/10/18 20:00 37.2 103 18 101/44 (63) 93 Nasal Cannula 2.0 03/10/18 19:39 94 18 96 Nasal Cannula 2.0 03/10/18 19:30 92 18 92/49 (63) 92 Nasal Cannula 2.0 03/10/18 19:07 94 18 96/54 (68) 94 Nasal Cannula 2.0 03/10/18 19:01 93 18 80/46 (57) 94 Nasal Cannula 2.0 03/10/18 18:45 96 2.0 03/10/18 16:00 96 Nasal Cannula 2.0 03/10/18 15:50 37.6 90 19 115/71 (86) 100 Nasal Cannula 5.0 03/10/18 15:04 86 20 100 Nasal Cannula 5.0 03/10/18 14:20 36.8 77 18 97/57 (70) 91 Nasal Cannula 2.0 Notes Mental Status: alert / awake / arousable, participated in evaluation Pt Amnestic to Procedure: Yes Nausea / Vomiting: adequately controlled Pain: adequately controlled Airway Patency, RR, SpO2: stable & adequate BP & HR: stable & adequate Hydration State: stable & adequate Anesthetic Complications: no major complications apparent The patient tolerated the procedure well. She was recovered in her ICU room. Dr. Pagan was aware.
[2018-03-11 04:25] LABS: HEMATOCRIT 24.9 % (37-47); INR 3.6 (0.9-1.1); MEAN CELL VOLUME 92.6 fL (80-100); MEAN CORPUSCULAR HEMOGLOBIN 29.7 pg (25-34); MEAN CORPUSCULAR HGB CONC 32.1 g/dl (32-36); MEAN PLATELET VOLUME 8.8 fL (7.4-10.4); PLATELET COUNT 126 K/uL (130-400); RED CELL DISTRIBUTION WIDTH CV 16.4 % (11.5-14.5); RED CELL DISTRIBUTION WIDTH SD 56.3 fL (36.4-46.3); WHITE BLOOD COUNT 16.41 K/uL (4.8-10.8)
[2018-03-11 04:30] LABS: ALBUMIN 1.9 gm/dl (3.4-5.0); CALCIUM 6.9 mg/dl (8.5-10.1); CREATININE 1.55 mg/dl (0.60-1.20); POTASSIUM 3.8 mmol/L (3.5-5.1)
[2018-03-11 04:41] LABS: BASO % 0.1 %; BASO ABS # 0.01 K/uL (0-0.2); EOS % 0.2 %; EOS ABS # 0.04 K/uL (0-0.5); IG# 0.09 K/uL (0.00-0.02); LYMPH % 7.4 %; LYMPH ABS # 1.22 K/uL (1.2-3.4); MONO % 5.4 %; MONO ABS # 0.88 K/uL (0.11-0.59); NEUT % 86.4 %; NEUT ABS # 14.17 K/uL (1.4-6.5)
[2018-03-11 04:43] LABS: TOTAL PROTEIN 4.7 gm/dl (6.4-8.2)
[2018-03-11] MEDS: LEVOTHYROXINE 25 MCG TAB PO SCH (05:24)
[2018-03-11] MEDS: MAGNESIUM SULFATE 1GM / D5W 100 ML IV SCH ×2 (05:47→06:55)
[2018-03-11] MEDS: LACTATED RINGER'S 1000ML 1,000 ML IV SCH ×2 (05:47→15:57)
[2018-03-11] MEDS: ALBUT/IPRATROP 3MG/0.5MG NEB 3 ML VIAL INH SCH ×4 (07:01→19:37)
[2018-03-11] MEDS: CITALOPRAM 20 MG TAB PO SCH (07:51)
[2018-03-11] MEDS: PANTOprazole SOD 40 MG TAB PO SCH (07:52)
[2018-03-11] MEDS: OXYBUTYNIN CHLORIDE 5 MG TAB PO SCH ×2 (07:52→20:52)
[2018-03-11] MEDS: PIPERACILL/TAZOBAC IV 3.375 GM in D5W 100ML IV SCH ×2 (08:07→15:57)
--- NOTE | 2018-03-11 08:42 | Progress Note ---
Subjective Date of Service: March 11, 2018. Subjective Pt evaluation today including: conversation w/ patient, physical exam, chart review, lab review Voiding: simpson catheter in place Subjectively seems to be doing slightly better this morning Still slightly hypotensive No temperatures Denies any abdominal pain Not bothered by her catheter Seems to be mentating slightly better Problem List Medical Problems: (1) Abdominal pain Status: Acute (2) Bowel obstruction Status: Acute (3) Gastroenteritis Status: Acute (4) Leukocytosis Status: Acute (5) Low back pain Status: Acute (6) Sepsis Status: Acute Review of Systems Constitutional: No see HPI, No fever, No chills, No sweats, No weight loss, No weakness, No fatigue, No problem reported Abdomen: No pain Objective Vital Signs Date Time Temp Pulse Resp B/P (MAP) Pulse Ox O2 Delivery O2 Flow Rate FiO2 03/11/18 08:02 Nasal Cannula 2.0 03/11/18 07:04 78 18 95 Nasal Cannula 1.5 03/11/18 07:00 76 93/55 (68) 93 Nasal Cannula 2.0 03/11/18 05:00 79 92/54 (67) 94 03/11/18 04:31 79 111/54 (73) 97 03/11/18 04:06 36.5 76 18 113/64 (80) 96 Nasal Cannula 2.0 03/11/18 04:00 Nasal Cannula 2.0 03/11/18 03:00 78 18 93/45 (61) 95 Nasal Cannula 2.0 03/11/18 02:15 82 16 103/72 (82) 95 Nasal Cannula 2.0 03/11/18 01:00 83 16 84/46 (59) 92 Nasal Cannula 2.0 03/11/18 00:01 Nasal Cannula 2.0 03/11/18 00:00 36.3 84 18 93/56 (68) 96 Nasal Cannula 2.0 03/10/18 23:30 88 16 74/40 (51) 94 Nasal Cannula 2.0 03/10/18 23:15 89 16 83/44 (57) 94 Nasal Cannula 2.0 03/10/18 23:09 89 16 74/40 (51) 94 Nasal Cannula 2.0 03/10/18 23:00 90 18 78/41 (53) 94 Nasal Cannula 2.0 5/8/18 22:15 95 18 84/45 (58) 95 Nasal Cannula 2.0 03/10/18 22:00 36.7 93 18 93/49 (64) 93 Nasal Cannula 2.0 03/10/18 21:45 98 18 81/52 (62) 95 Nasal Cannula 2.0 03/10/18 21:30 37 96 14 88/46 (58) 95 Nasal Cannula 2 03/10/18 21:20 98 14 86/55 (61) 95 Nasal Cannula 2 03/10/18 21:10 99 14 86/49 (66) 95 Nasal Cannula 2 03/10/18 21:00 100 12 87/47 (57) 95 Nasal Cannula 2 03/10/18 20:54 37.5 100 14 82/69 (72) 95 Nasal Cannula 2 03/10/18 20:00 93 Nasal Cannula 2.0 03/10/18 20:00 37.2 103 18 101/44 (63) 93 Nasal Cannula 2.0 03/10/18 19:39 94 18 96 Nasal Cannula 2.0 03/10/18 19:30 92 18 92/49 (63) 92 Nasal Cannula 2.0 03/10/18 19:07 94 18 96/54 (68) 94 Nasal Cannula 2.0 03/10/18 19:01 93 18 80/46 (57) 94 Nasal Cannula 2.0 03/10/18 18:45 96 2.0 03/10/18 16:00 96 Nasal Cannula 2.0 03/10/18 15:50 37.6 90 19 115/71 (86) 100 Nasal Cannula 5.0 03/10/18 15:04 86 20 100 Nasal Cannula 5.0 03/10/18 14:20 36.8 77 18 97/57 (70) 91 Nasal Cannula 2.0 03/10/18 12:25 76 19 80/54 97 03/10/18 12:00 96 Nasal Cannula 03/10/18 11:32 79 17 96 03/10/18 11:31 76/35 03/10/18 11:17 80 15 92 03/10/18 11:02 79 21 94 03/10/18 11:00 82/51 03/10/18 10:47 78 21 95 03/10/18 10:46 90/59 03/10/18 10:32 80 22 95 03/10/18 10:28 80 03/10/18 10:21 95/48 03/10/18 10:18 95 Nasal Cannula 03/10/18 10:17 89 Room Air 03/10/18 10:17 36.8 75 16 95/48 89 Room Air Physical Exam General Appearance: no apparent distress (Very comfortable appearing, denies any significant discomfort) Cardiovascular: no edema Abdomen: soft, no organomegaly Extremities: non-tender Neurologic/Psychiatric: alert, normal mood/affect Skin: warm/dry Lymphatic: no adenopathy Laboratory Results Last 24 Hours Test 03/10/18 10:48 03/10/18 10:56 03/10/18 11:13 03/10/18 11:30 Prothrombin Time 55.3 SECONDS Prothromb Time International Ratio 5.4 Activated Partial Thromboplast Time 49.0 SECONDS Partial Thromboplastin Ratio 1.9 D-Dimer 750 ug/L FEU Sodium Level 139 mmol/L Potassium Level 4.1 mmol/L Chloride Level 106 mmol/L Carbon Dioxide Level 25 mmol/L Anion Gap 8.0 mmol/L Blood Urea Nitrogen 26 mg/dl Creatinine 2.13 mg/dl Est Creatinine Clear Calc Drug Dose 16.6 ml/min Estimated GFR () 23.8 Estimated GFR (Non- 20.6 BUN/Creatinine Ratio 12.1 Random Glucose 116 mg/dl Calcium Level 8.1 mg/dl Total Bilirubin 0.8 mg/dl Aspartate Amino Transf (AST/SGOT) 36 U/L Alanine Aminotransferase (ALT/SGPT) 19 U/L Alkaline Phosphatase 90 U/L Troponin I < 0.015 ng/ml Total Protein 6.4 gm/dl Albumin 2.6 gm/dl Globulin 3.8 gm/dl Albumin/Globulin Ratio 0.7 Procalcitonin 41.19 ng/ml Thyroid Stimulating Hormone (TSH) 1.240 uIu/ml Bedside Lactic Acid Venous 3.84 mmol/L White Blood Count 24.56 K/uL Red Blood Count 3.66 M/uL Hemoglobin 10.9 g/dL Hematocrit 34.3 % Mean Corpuscular Volume 93.7 fL Mean Corpuscular Hemoglobin 29.8 pg Mean Corpuscular Hemoglobin Concent 31.8 g/dl Platelet Count 204 K/uL Mean Platelet Volume 8.7 fL Neutrophils (%) (Auto) 89.5 % Lymphocytes (%) (Auto) 3.8 % Monocytes (%) (Auto) 5.7 % Eosinophils (%) (Auto) 0.2 % Basophils (%) (Auto) 0.1 % Neutrophils # (Auto) 22.00 K/uL Lymphocytes # (Auto) 0.93 K/uL Monocytes # (Auto) 1.40 K/uL Eosinophils # (Auto) 0.04 K/uL Basophils # (Auto) 0.02 K/uL RDW Standard Deviation 55.5 fL RDW Coefficient of Variation 16.3 % Immature Granulocyte % (Auto) 0.7 % Immature Granulocyte # (Auto) 0.17 K/uL Urine Color DK YELLOW Urine Appearance TURBID Urine pH 6.0 Urine Specific [place] 1.020 Urine Protein 2+ Urine Glucose (UA) NEG Urine Ketones TRACE Urine Occult Blood 3+ Urine Nitrite NEG Urine Bilirubin NEG Urine Urobilinogen NEG Urine Leukocyte Esterase LARGE Urine WBC (Auto) >30 /hpf Urine RBC (Auto) 10-30 /hpf Urine Hyaline Casts (Auto) 1-5 /lpf Urine Epithelial Cells (Auto) >30 /lpf Urine Bacteria (Auto) 4+ Urine Crystals CALCIUM OXALATE Urine Pathogenic Casts /lpf Urine Yeast (Auto) Test 03/10/18 15:20 03/10/18 15:23 03/10/18 18:29 03/10/18 19:20 Sodium Level 140 mmol/L 140 mmol/L Potassium Level 4.0 mmol/L 3.7 mmol/L Chloride Level 108 mmol/L 108 mmol/L Carbon Dioxide Level 22 mmol/L 21 mmol/L Anion Gap 10.0 mmol/L 11.0 mmol/L Blood Urea Nitrogen 25 mg/dl 25 mg/dl Creatinine 1.95 mg/dl 1.86 mg/dl Est Creatinine Clear Calc Drug Dose 18.1 ml/min 19.0 ml/min Estimated GFR () 26.5 28.1 Estimated GFR (Non- 22.9 24.2 BUN/Creatinine Ratio 12.8 13.3 Random Glucose 121 mg/dl 114 mg/dl Calcium Level 7.3 mg/dl 7.7 mg/dl Lactic Acid Level 4.9 mmol/L 4.5 mmol/L Arterial Blood pH 7.45 Arterial Blood Partial Pressure CO2 31 mmHg Arterial Blood Partial Pressure O2 78 mm/Hg Arterial Blood HCO3 21 mmol/L Arterial Blood Oxygen Saturation 94.6 % Arterial Blood Base Excess -2.5 mEq/L Arterial Blood Gas Delivery 5L Randolph Test POS Prothrombin Time 60.8 SECONDS Prothromb Time International Ratio 6.0 Test 03/10/18 19:27 03/10/18 23:55 03/10/18 23:58 03/11/18 03:57 Bedside Glucose 128 mg/dl 168 mg/dl Sodium Level 140 mmol/L 139 mmol/L Potassium Level 3.8 mmol/L 3.8 mmol/L Chloride Level 107 mmol/L 109 mmol/L Carbon Dioxide Level 24 mmol/L 25 mmol/L Anion Gap 9.0 mmol/L 5.0 mmol/L Blood Urea Nitrogen 25 mg/dl 25 mg/dl Creatinine 1.80 mg/dl 1.55 mg/dl Est Creatinine Clear Calc Drug Dose 19.7 ml/min 22.8 ml/min Estimated GFR () 29.2 35.0 Estimated GFR (Non- 25.2 30.2 BUN/Creatinine Ratio 13.9 16.0 Random Glucose 130 mg/dl 121 mg/dl Lactic Acid Level 5.1 mmol/L 2.5 mmol/L Calcium Level 7.2 mg/dl 6.9 mg/dl Ionized Calcium 1.04 mmol/l White Blood Count 16.41 K/uL Red Blood Count 2.69 M/uL Hemoglobin 8.0 g/dL Hematocrit 24.9 % Mean Corpuscular Volume 92.6 fL Mean Corpuscular Hemoglobin 29.7 pg Mean Corpuscular Hemoglobin Concent 32.1 g/dl Platelet Count 126 K/uL Mean Platelet Volume 8.8 fL Neutrophils (%) (Auto) 86.4 % Lymphocytes (%) (Auto) 7.4 % Monocytes (%) (Auto) 5.4 % Eosinophils (%) (Auto) 0.2 % Basophils (%) (Auto) 0.1 % Neutrophils # (Auto) 14.17 K/uL Lymphocytes # (Auto) 1.22 K/uL Monocytes # (Auto) 0.88 K/uL Eosinophils # (Auto) 0.04 K/uL Basophils # (Auto) 0.01 K/uL RDW Standard Deviation 56.3 fL RDW Coefficient of Variation 16.4 % Immature Granulocyte % (Auto) 0.5 % Immature Granulocyte # (Auto) 0.09 K/uL Red Blood Cell Morphology Unremarkable Prothrombin Time 36.4 SECONDS Prothromb Time International Ratio 3.6 Phosphorus Level 3.0 mg/dl Magnesium Level 1.6 mg/dl Total Bilirubin 0.8 mg/dl Aspartate Amino Transf (AST/SGOT) 60 U/L Alanine Aminotransferase (ALT/SGPT) 18 U/L Alkaline Phosphatase 61 U/L Total Protein 4.7 gm/dl Albumin 1.9 gm/dl Globulin 2.8 gm/dl Albumin/Globulin Ratio 0.7 Test 03/11/18 05:58 Bedside Glucose 126 mg/dl Assessment and Plan Postoperative day #1 status post emergent left ureteral stent placement secondary to obstructing stone and urinary tract infection/septicemia Kidney function is improved slightly overnight White blood cell count has decreased Subjectively improving Still hypotensive, but appears to be better overall from when she arrived Continue antibiotics follow expectant
--- NOTE | 2018-03-11 08:45 | ECHOCARDIOGRAM REPORT ---
*NOTICE TO RECEIVING [facility] This information is strictly Confidential and protected under [place] law. [place] law prohibits you from making any further disclosure of this information unless further disclosure is expressly permitted by the written consent of the person to whom it pertains or is authorized by law. A general authorization for the release of medical or other information is not sufficient for this purpose. Hospital accepts no responsibility if the information is made available to any other person, INCLUDING THE PATIENT. Interpretation Summary * Name: ADELA MATOS Study Date: 03/11/2018 06:24 AM BP: 93/55 mmHg * [facility] HR: 78 * : 1930 (M/d/yyyy) Gender: Female Height: 60 in * Age: 87 yrs Ethnicity: [place] Weight: 149 lb * Ordering Physician: Rochelle Iglesias * Referring Physician: CHRISTINE RICHARDS * Performed By: Lizz Menezes RCS * * Reason For Study: SOB, Hypoxia * BSA: 1.6 m2 * -- Conclusions -- * Normal LV chamber size and wall thickness. * Normal LV systolic function, EF 55-60%. * No segmental left ventricular wall motion abnormalities are noted. * Grade II diastolic dysfunction. * Mild aortic valve sclerosis without stenosis. Mild aortic regurgitation. Procedure Details * A complete two-dimensional transthoracic echocardiogram was performed (2D, M-mode, Doppler and color flow Doppler). Left Ventricle * The left ventricle is normal in size. * There is normal left ventricular wall thickness. * Ejection Fraction = 55-60%. * Left ventricular systolic function is normal. * No segmental left ventricular wall motion abnormalities are noted. * The left ventricular wall motion is normal. Right Ventricle * The right ventricular cavity size is normal (basal dimension <4.2 cm in right ventricular apical 4-chamber view). * The right ventricular systolic function is normal as assessed by tricuspid annular plane systolic excursion (TAPSE) (normal >1.5 cm). Atria * The left atrial size is normal. * Right atrial size is normal. * No ASD detected; PFO is not assessed. Mitral Valve * The mitral valve is normal in structure and function. Tricuspid Valve * The tricuspid valve is normal in structure and function. Aortic Valve * The aortic valve is trileaflet. * No hemodynamically significant valvular aortic stenosis. * Mild aortic regurgitation. Pulmonic Valve * The pulmonary valve is not well seen, but the Doppler examination is normal without significant regurgitation or stenosis. Great Vessels * The aortic root and proximal ascending aorta are normal sized. Pericardium/Pleural * There is no pericardial effusion. Left Ventricular Diastolic Function * Diastolic dysfunction, Grade II (pseudonormalization pattern). MMode 2D Measurements and Calculations IVSd 0.99 cm IVSs 1.4 cm LVIDd 4.1 cm LVIDs 2.7 cm LVPWd 1.0 cm LVPWs 1.6 cm IVS/LVPW 0.97 FS 34.2 % EDV(Teich) 73.9 ml ESV(Teich) 26.9 ml EF(Teich) 63.7 % EDV(cubed) 68.6 ml ESV(cubed) 19.5 ml EF(cubed) 71.5 % % IVS thick 40.6 % % LVPW thick 54.9 % LV mass(C)d 133.1 grams LV mass(C)dI 80.8 grams/m\S\2 LV mass(C)s 136.2 grams LV mass(C)sI 82.7 grams/m\S\2 SV(Teich) 47.1 ml SI(Teich) 28.6 ml/m\S\2 SV(cubed) 49.0 ml SI(cubed) 29.8 ml/m\S\2 Ao root diam 3.5 cm Ao root area 9.4 cm\S\2 ACS 1.8 cm LA dimension 3.1 cm asc Aorta Diam 3.1 cm LA/Ao 0.91 EDV(MOD-sp4) 73.0 ml ESV(MOD-sp4) 36.0 ml EF(MOD-sp4) 50.7 % EDV(MOD-sp2) 77.0 ml ESV(MOD-sp2) 33.0 ml EF(MOD-sp2) 57.1 % SV(MOD-sp4) 37.0 ml SI(MOD-sp4) 22.5 ml/m\S\2 SV(MOD-sp2) 44.0 ml SI(MOD-sp2) 26.7 ml/m\S\2 Doppler Measurements and Calculations MV E max valerie 128.5 cm/sec MV A max valerie 92.6 cm/sec MV E/A 1.4 MV P1/2t max valerie 128.9 cm/sec MV P1/2t 75.5 msec MVA(P1/2t) 2.9 cm\S\2 MV dec slope 499.8 cm/sec\S\2 MV dec time 0.20 sec Ao V2 max 141.2 cm/sec Ao max PG 8.0 mmHg Ao max PG (full) 2.0 mmHg AI max valerie 251.4 cm/sec AI max PG 25.3 mmHg AI dec slope 194.7 cm/sec\S\2 AI P1/2t 378.2 msec LV V1 max PG 6.0 mmHg LV V1 max 122.4 cm/sec PA V2 max 103.5 cm/sec PA max PG 4.3 mmHg TR max valerie 246.6 cm/sec
[2018-03-11] MEDS: ACETAMINOPHEN 325 MG TAB PO PRN (08:48)
[2018-03-11] MEDS ORDERED: ASPIRIN 81 MG ECTAB PO SCH (09:00)
--- NOTE | 2018-03-11 09:33 | NEPHROLOGY CONSULTATION ---
DATE OF CONSULTATION: 03/11/2018 ATTENDING OF RECORD: Dr. Iglesias REASON FOR CONSULTATION: MEGHAN. HISTORY OF PRESENT ILLNESS: This is an 87-year-old female with underlying hypertension as well as atrial fibrillation, on Coumadin, with recurrent UTIs, who follows with Dr. Pittman of urology for overactive bladder, who had a decreased appetite, fevers, fatigue, and weakness. The patient had acute kidney injury with a creatinine of 2.1 with a baseline of 0.8. The patient appeared septic with UTI and obstructing kidney stone. Urology was consulted and went for procedure last night with a left ureteral stent insertion. The patient is urinating at 275 out last night, 300 out from midnight to this morning, and an additional 200 mL now in the Rowell bag. The patient is delightful and comfortable, complaining of discomfort and pain, continues to have a decreased appetite, but is awake and speaking and answering questions appropriately. REVIEW OF SYSTEMS: Positive discomfort. Positive fevers. No chills, no headaches, no blurry vision. No shortness of breath, no chest pain, no nausea or vomiting, no diarrhea or constipation. Positive anorexia. Positive fatigue. All other review of systems otherwise negative. CURRENT MEDICATIONS: Celexa 20 mg a day, Protonix 40 mg a day, Synthroid 25 mcg a day, Lipitor 20 mg at night, vitamin D 2000 units at night, Neurontin 100 mg at night, Remeron 15 mg at night, Ditropan 5 mg p.o. b.i.d., Zosyn 3.375 IV every 12, lactated Ringer's at 125 mL an hour, DuoNebs. PAST MEDICAL HISTORY: Atrial fibrillation, heart disease, GERD, history of DVT, hyperlipidemia, hypertension, hypothyroidism, overactive bladder, recurrent UTIs. PAST SURGICAL HISTORY: Appendectomy, cataract surgery, knee replacement, hip replacement. FAMILY HISTORY: Significant for diabetes. SOCIAL HISTORY: No smoking, no alcohol, no drugs. Lives in assisted living. PHYSICAL EXAMINATION: VITAL SIGNS: Temperature 36.5, pulse 78, respiratory rate is 18, blood pressure is 93/55, satting 95% on 2 L. GENERAL: Awake, alert, oriented x3. EYES: No scleral icterus. ENT: Moist mucous membranes. NECK: Supple. PULMONARY: Clear to auscultation. CARDIAC: Regular rate and rhythm. ABDOMEN: Bowel sounds positive. Soft, nontender, nondistended. EXTREMITIES: No clubbing, cyanosis, or edema. NEUROLOGICALLY: Nonfocal. DERMATOLOGIC: No rash. GENITOURINARY: Rowell in place with dark urine. LABORATORIES: Sodium is 139, potassium is 3.8, chloride is 109, bicarbonate is 25, BUN is 25, creatinine is 1.55, down from 2.13, glucose 121. Lactic acid 2.5, down from 5, phos 3, mag is 1.6, albumin 1.9. White count 16, down from 24, H and H 8 and 25, platelet count 126. ABG showed a pH of 7.45, pCO2 31, pO2 of 78, and bicarbonate of 21. INR was 6 and has improved down to 3.6. UA shows a large leuk esterase, greater than 30 wbc's, 10-30 rbc's. Blood cultures positive for Gram negative bacilli. Urine culture, multiple organisms present. Repeat is pending. Chest x-ray showed no acute cardiopulmonary disease. Abdomen and pelvis CT showed a 6-mm obstructing calculus in the proximal left ureter, moderate left hydroureteronephrosis, multiple left and lesser extent right renal nonobstructing calcifications. IMPRESSION AND PLAN: Acute kidney injury, nonoliguric, in the setting of Gram negative bacteremia with urinary tract infection and obstructing stone. Greatly appreciate Dr. Pittman's help for stenting last night. The patient is urinating well. Lactic acid is improving. White count is improving. Creatinine is also improving. Continue lactated Ringer's, watching for signs of volume overload. Hopefully, as the infection clears, kidney function eventually returns back down to baseline. No changes to management at this time. We will follow along. No indication for emergent dialysis. I appreciate consultation. CHRISTI
[2018-03-11] MEDS ORDERED: BOOST VANILLA PO PRN (10:15)
[2018-03-11] MEDS ORDERED: THIAMINE HCL INJ 200 MG in NSS 50ML IV ONE (10:30)
--- NOTE | 2018-03-11 10:41 | Critical Care Progress Note ---
Critical Care Progress Note Date of Service March 11, 2018. Data Medications: Current Inpatient Medications Medications (Trade) Dose Ordered Sig/Jamilah Route Start Time Stop Time Status Last Admin Dose Admin Miscellaneous Information (Consult) 1 ea UD PRN N/A 03/10/18 12:45 04/09/18 12:44 Atorvastatin Calcium (Lipitor Tab) 20 mg HS PO 03/10/18 21:00 04/09/18 20:59 Cholecalciferol (Vitamin D Tab) 2,000 inter.unit HS PO 03/10/18 21:00 04/09/18 20:59 Citalopram Hydrobromide (celeXA TAB) 20 mg DAILY PO 03/11/18 09:00 04/10/18 08:59 03/11/18 07:51 20 MG Gabapentin (Neurontin Cap) 100 mg HS PO 03/10/18 21:00 04/09/18 20:59 Levothyroxine Sodium (Synthroid Tab) 25 mcg DAILYBB PO 03/11/18 06:00 04/10/18 06:29 Mirtazapine (Remeron Tab) 15 mg HS PO 03/10/18 21:00 04/09/18 20:59 Oxybutynin Chloride (Ditropan Tab) 5 mg BID PO 03/10/18 21:00 04/09/18 20:59 03/11/18 07:52 5 MG Pantoprazole Sodium (Protonix Tab) 40 mg DAILY PO 03/11/18 09:00 04/10/18 08:59 03/11/18 07:52 40 MG Acetaminophen (Tylenol Tab) 650 mg Q4H PRN PO 03/10/18 12:00 04/09/18 11:59 03/11/18 08:48 650 MG Al Hydrox/Mg Hydrox/Simethicone (Maalox Max Susp) 15 ml Q4H PRN PO 03/10/18 12:00 04/09/18 11:59 Magnesium Hydroxide (Milk Of Magnesia Susp) 30 ml Q12H PRN PO 03/10/18 12:00 04/09/18 11:59 Ondansetron HCl (Zofran Inj) 4 mg Q6H PRN IV 03/10/18 12:00 04/09/18 11:59 Nitroglycerin (Nitrostat Tab) 0.4 mg UD PRN SL 03/10/18 12:00 04/09/18 11:59 Polyethylene (Miralax Powder Packet) 17 gm DAILY PRN PO 03/10/18 12:00 04/09/18 11:59 Lactated Ringer's 1,000 ml @ 80 mls/hr [id number] IV 03/10/18 13:30 04/09/18 13:29 03/11/18 05:47 125 MLS/HR Albuterol/ Ipratropium (Duoneb) 3 ml QIDR INH 03/10/18 16:00 04/09/18 15:59 03/11/18 07:01 3 ML Piperacillin Sod/ Tazobactam Sod 3.375 gm/Dextrose 115 ml @ 28.75 mls/ hr Q12H IV 03/10/18 20:00 03/20/18 19:59 03/11/18 08:07 28.75 MLS/HR Norepinephrine Bitartrate 8 mg/ Dextrose 508 ml @ 0 mls/hr Q0M PRN IV 03/10/18 23:09 04/09/18 23:08 Thiamine HCl 200 mg/Sodium Chloride 52 ml @ 210 mls/hr NOW ONCE IV 03/11/18 10:30 03/11/18 10:44 Thiamine HCl (Vitamin B-1 Tab) 200 mg QAM PO 03/12/18 09:00 04/11/18 08:59 Enteral Nutritional Formula (Boost) 1 can TID PRN PO 03/11/18 10:15 04/10/18 10:14 Vital Signs: Date Time Temp Pulse Resp B/P (MAP) Pulse Ox O2 Delivery O2 Flow Rate FiO2 03/11/18 09:00 83 92/54 (67) 95 Nasal Cannula 2.0 03/11/18 08:02 Nasal Cannula 2.0 03/11/18 08:00 36.7 81 89/52 (64) 95 Nasal Cannula 2.0 03/11/18 07:04 78 18 95 Nasal Cannula 1.5 03/11/18 07:00 76 93/55 (68) 93 Nasal Cannula 2.0 03/11/18 05:00 79 92/54 (67) 94 03/11/18 04:31 79 111/54 (73) 97 03/11/18 04:06 36.5 76 18 113/64 (80) 96 Nasal Cannula 2.0 03/11/18 04:00 Nasal Cannula 2.0 03/11/18 03:00 78 18 93/45 (61) 95 Nasal Cannula 2.0 03/11/18 02:15 82 16 103/72 (82) 95 Nasal Cannula 2.0 03/11/18 01:00 83 16 84/46 (59) 92 Nasal Cannula 2.0 03/11/18 00:01 Nasal Cannula 2.0 03/11/18 00:00 36.3 84 18 93/56 (68) 96 Nasal Cannula 2.0 03/10/18 23:30 88 16 74/40 (51) 94 Nasal Cannula 2.0 03/10/18 23:15 89 16 83/44 (57) 94 Nasal Cannula 2.0 03/10/18 23:09 89 16 74/40 (51) 94 Nasal Cannula 2.0 03/10/18 23:00 90 18 78/41 (53) 94 Nasal Cannula 2.0 03/10/18 22:15 95 18 84/45 (58) 95 Nasal Cannula 2.0 03/10/18 22:00 36.7 93 18 93/49 (64) 93 Nasal Cannula 2.0 03/10/18 21:45 98 18 81/52 (62) 95 Nasal Cannula 2.0 03/10/18 21:30 37 96 14 88/46 (58) 95 Nasal Cannula 2 03/10/18 21:20 98 14 86/55 (61) 95 Nasal Cannula 2 03/10/18 21:10 99 14 86/49 (66) 95 Nasal Cannula 2 03/10/18 21:00 100 12 87/47 (57) 95 Nasal Cannula 2 03/10/18 20:54 37.5 100 14 82/69 (72) 95 Nasal Cannula 2 03/10/18 20:00 93 Nasal Cannula 2.0 03/10/18 20:00 37.2 103 18 101/44 (63) 93 Nasal Cannula 2.0 03/10/18 19:39 94 18 96 Nasal Cannula 2.0 03/10/18 19:30 92 18 92/49 (63) 92 Nasal Cannula 2.0 03/10/18 19:07 94 18 96/54 (68) 94 Nasal Cannula 2.0 03/10/18 19:01 93 18 80/46 (57) 94 Nasal Cannula 2.0 03/10/18 18:45 96 2.0 03/10/18 16:00 96 Nasal Cannula 2.0 03/10/18 15:50 37.6 90 19 115/71 (86) 100 Nasal Cannula 5.0 03/10/18 15:04 86 20 100 Nasal Cannula 5.0 03/10/18 14:20 36.8 77 18 97/57 (70) 91 Nasal Cannula 2.0 03/10/18 12:25 76 19 80/54 97 03/10/18 12:00 96 Nasal Cannula 03/10/18 11:32 79 17 96 03/10/18 11:31 76/35 03/10/18 11:17 80 15 92 03/10/18 11:02 79 21 94 03/10/18 11:00 82/51 03/10/18 10:47 78 21 95 03/10/18 10:46 90/59 Laboratory Results: Last 24 Hours Test 03/10/18 10:48 03/10/18 10:56 03/10/18 11:13 03/10/18 11:30 Prothrombin Time 55.3 SECONDS Prothromb Time International Ratio 5.4 Activated Partial Thromboplast Time 49.0 SECONDS Partial Thromboplastin Ratio 1.9 D-Dimer 750 ug/L FEU Sodium Level 139 mmol/L Potassium Level 4.1 mmol/L Chloride Level 106 mmol/L Carbon Dioxide Level 25 mmol/L Anion Gap 8.0 mmol/L Blood Urea Nitrogen 26 mg/dl Creatinine 2.13 mg/dl Est Creatinine Clear Calc Drug Dose 16.6 ml/min Estimated GFR () 23.8 Estimated GFR (Non- 20.6 BUN/Creatinine Ratio 12.1 Random Glucose 116 mg/dl Calcium Level 8.1 mg/dl Total Bilirubin 0.8 mg/dl Aspartate Amino Transf (AST/SGOT) 36 U/L Alanine Aminotransferase (ALT/SGPT) 19 U/L Alkaline Phosphatase 90 U/L Troponin I < 0.015 ng/ml Total Protein 6.4 gm/dl Albumin 2.6 gm/dl Globulin 3.8 gm/dl Albumin/Globulin Ratio 0.7 Procalcitonin 41.19 ng/ml Thyroid Stimulating Hormone (TSH) 1.240 uIu/ml Bedside Lactic Acid Venous 3.84 mmol/L White Blood Count 24.56 K/uL Red Blood Count 3.66 M/uL Hemoglobin 10.9 g/dL Hematocrit 34.3 % Mean Corpuscular Volume 93.7 fL Mean Corpuscular Hemoglobin 29.8 pg Mean Corpuscular Hemoglobin Concent 31.8 g/dl Platelet Count 204 K/uL Mean Platelet Volume 8.7 fL Neutrophils (%) (Auto) 89.5 % Lymphocytes (%) (Auto) 3.8 % Monocytes (%) (Auto) 5.7 % Eosinophils (%) (Auto) 0.2 % Basophils (%) (Auto) 0.1 % Neutrophils # (Auto) 22.00 K/uL Lymphocytes # (Auto) 0.93 K/uL Monocytes # (Auto) 1.40 K/uL Eosinophils # (Auto) 0.04 K/uL Basophils # (Auto) 0.02 K/uL RDW Standard Deviation 55.5 fL RDW Coefficient of Variation 16.3 % Immature Granulocyte % (Auto) 0.7 % Immature Granulocyte # (Auto) 0.17 K/uL Urine Color DK YELLOW Urine Appearance TURBID Urine pH 6.0 Urine Specific [place] 1.020 Urine Protein 2+ Urine Glucose (UA) NEG Urine Ketones TRACE Urine Occult Blood 3+ Urine Nitrite NEG Urine Bilirubin NEG Urine Urobilinogen NEG Urine Leukocyte Esterase LARGE Urine WBC (Auto) >30 /hpf Urine RBC (Auto) 10-30 /hpf Urine Hyaline Casts (Auto) 1-5 /lpf Urine Epithelial Cells (Auto) >30 /lpf Urine Bacteria (Auto) 4+ Urine Crystals CALCIUM OXALATE Urine Pathogenic Casts /lpf Urine Yeast (Auto) Test 03/10/18 15:20 03/10/18 15:23 03/10/18 18:29 03/10/18 19:20 Sodium Level 140 mmol/L 140 mmol/L Potassium Level 4.0 mmol/L 3.7 mmol/L Chloride Level 108 mmol/L 108 mmol/L Carbon Dioxide Level 22 mmol/L 21 mmol/L Anion Gap 10.0 mmol/L 11.0 mmol/L Blood Urea Nitrogen 25 mg/dl 25 mg/dl Creatinine 1.95 mg/dl 1.86 mg/dl Est Creatinine Clear Calc Drug Dose 18.1 ml/min 19.0 ml/min Estimated GFR () 26.5 28.1 Estimated GFR (Non- 22.9 24.2 BUN/Creatinine Ratio 12.8 13.3 Random Glucose 121 mg/dl 114 mg/dl Calcium Level 7.3 mg/dl 7.7 mg/dl Lactic Acid Level 4.9 mmol/L 4.5 mmol/L Arterial Blood pH 7.45 Arterial Blood Partial Pressure CO2 31 mmHg Arterial Blood Partial Pressure O2 78 mm/Hg Arterial Blood HCO3 21 mmol/L Arterial Blood Oxygen Saturation 94.6 % Arterial Blood Base Excess -2.5 mEq/L Arterial Blood Gas Delivery 5L Randolph Test POS Prothrombin Time 60.8 SECONDS Prothromb Time International Ratio 6.0 Test 03/10/18 19:27 03/10/18 23:55 03/10/18 23:58 03/11/18 03:57 Bedside Glucose 128 mg/dl 168 mg/dl Sodium Level 140 mmol/L 139 mmol/L Potassium Level 3.8 mmol/L 3.8 mmol/L Chloride Level 107 mmol/L 109 mmol/L Carbon Dioxide Level 24 mmol/L 25 mmol/L Anion Gap 9.0 mmol/L 5.0 mmol/L Blood Urea Nitrogen 25 mg/dl 25 mg/dl Creatinine 1.80 mg/dl 1.55 mg/dl Est Creatinine Clear Calc Drug Dose 19.7 ml/min 22.8 ml/min Estimated GFR () 29.2 35.0 Estimated GFR (Non- 25.2 30.2 BUN/Creatinine Ratio 13.9 16.0 Random Glucose 130 mg/dl 121 mg/dl Lactic Acid Level 5.1 mmol/L 2.5 mmol/L Calcium Level 7.2 mg/dl 6.9 mg/dl Ionized Calcium 1.04 mmol/l White Blood Count 16.41 K/uL Red Blood Count 2.69 M/uL Hemoglobin 8.0 g/dL Hematocrit 24.9 % Mean Corpuscular Volume 92.6 fL Mean Corpuscular Hemoglobin 29.7 pg Mean Corpuscular Hemoglobin Concent 32.1 g/dl Platelet Count 126 K/uL Mean Platelet Volume 8.8 fL Neutrophils (%) (Auto) 86.4 % Lymphocytes (%) (Auto) 7.4 % Monocytes (%) (Auto) 5.4 % Eosinophils (%) (Auto) 0.2 % Basophils (%) (Auto) 0.1 % Neutrophils # (Auto) 14.17 K/uL Lymphocytes # (Auto) 1.22 K/uL Monocytes # (Auto) 0.88 K/uL Eosinophils # (Auto) 0.04 K/uL Basophils # (Auto) 0.01 K/uL RDW Standard Deviation 56.3 fL RDW Coefficient of Variation 16.4 % Immature Granulocyte % (Auto) 0.5 % Immature Granulocyte # (Auto) 0.09 K/uL Red Blood Cell Morphology Unremarkable Prothrombin Time 36.4 SECONDS Prothromb Time International Ratio 3.6 Phosphorus Level 3.0 mg/dl Magnesium Level 1.6 mg/dl Total Bilirubin 0.8 mg/dl Aspartate Amino Transf (AST/SGOT) 60 U/L Alanine Aminotransferase (ALT/SGPT) 18 U/L Alkaline Phosphatase 61 U/L Total Protein 4.7 gm/dl Albumin 1.9 gm/dl Globulin 2.8 gm/dl Albumin/Globulin Ratio 0.7 Test 03/11/18 05:58 03/11/18 10:23 Bedside Glucose 126 mg/dl
--- NOTE | 2018-03-11 11:10 | Progress Note ---
Subjective Date of Service: March 11, 2018. Subjective Pt evaluation today including: conversation w/ patient, physical exam, chart review, lab review pt seen in followup, events noted. found to have obstructing left stone with hydro and pyelo. Had removal and stent last night. Now in ICU, on pressors. Remains on broad spectrum abx. Initial blood cultures growing gnr, urine culture growing gnr x 2. repeat blood cultures pending. looks more comfortable today, no shaking chills. afebrile overnight. wbc improved to 16 today. Lactic acid elevated to 5.1 overnight but trending down, 2.5 this am. No abd pain, but admits to discomfort, simpson in place with blood tinged urine. no cp, sob. all remaining ros reviewed and are negative. Problem List Medical Problems: (1) Abdominal pain Status: Acute (2) Bowel obstruction Status: Acute (3) Gastroenteritis Status: Acute (4) Leukocytosis Status: Acute (5) Low back pain Status: Acute (6) Sepsis Status: Acute Objective Vital Signs Date Time Temp Pulse Resp B/P (MAP) Pulse Ox O2 Delivery O2 Flow Rate FiO2 03/11/18 09:00 83 92/54 (67) 95 Nasal Cannula 2.0 03/11/18 08:02 Nasal Cannula 2.0 03/11/18 08:00 36.7 81 89/52 (64) 95 Nasal Cannula 2.0 03/11/18 07:04 78 18 95 Nasal Cannula 1.5 03/11/18 07:00 76 93/55 (68) 93 Nasal Cannula 2.0 03/11/18 05:00 79 92/54 (67) 94 03/11/18 04:31 79 111/54 (73) 97 03/11/18 04:06 36.5 76 18 113/64 (80) 96 Nasal Cannula 2.0 03/11/18 04:00 Nasal Cannula 2.0 03/11/18 03:00 78 18 93/45 (61) 95 Nasal Cannula 2.0 03/11/18 02:15 82 16 103/72 (82) 95 Nasal Cannula 2.0 03/11/18 01:00 83 16 84/46 (59) 92 Nasal Cannula 2.0 03/11/18 00:01 Nasal Cannula 2.0 03/11/18 00:00 36.3 84 18 93/56 (68) 96 Nasal Cannula 2.0 03/10/18 23:30 88 16 74/40 (51) 94 Nasal Cannula 2.0 03/10/18 23:15 89 16 83/44 (57) 94 Nasal Cannula 2.0 03/10/18 23:09 89 16 74/40 (51) 94 Nasal Cannula 2.0 03/10/18 23:00 90 18 78/41 (53) 94 Nasal Cannula 2.0 03/10/18 22:15 95 18 84/45 (58) 95 Nasal Cannula 2.0 03/10/18 22:00 36.7 93 18 93/49 (64) 93 Nasal Cannula 2.0 03/10/18 21:45 98 18 81/52 (62) 95 Nasal Cannula 2.0 03/10/18 21:30 37 96 14 88/46 (58) 95 Nasal Cannula 2 03/10/18 21:20 98 14 86/55 (61) 95 Nasal Cannula 2 03/10/18 21:10 99 14 86/49 (66) 95 Nasal Cannula 2 03/10/18 21:00 100 12 87/47 (57) 95 Nasal Cannula 2 03/10/18 20:54 37.5 100 14 82/69 (72) 95 Nasal Cannula 2 03/10/18 20:00 93 Nasal Cannula 2.0 03/10/18 20:00 37.2 103 18 101/44 (63) 93 Nasal Cannula 2.0 03/10/18 19:39 94 18 96 Nasal Cannula 2.0 03/10/18 19:30 92 18 92/49 (63) 92 Nasal Cannula 2.0 03/10/18 19:07 94 18 96/54 (68) 94 Nasal Cannula 2.0 03/10/18 19:01 93 18 80/46 (57) 94 Nasal Cannula 2.0 03/10/18 18:45 96 2.0 03/10/18 16:00 96 Nasal Cannula 2.0 03/10/18 15:50 37.6 90 19 115/71 (86) 100 Nasal Cannula 5.0 03/10/18 15:04 86 20 100 Nasal Cannula 5.0 03/10/18 14:20 36.8 77 18 97/57 (70) 91 Nasal Cannula 2.0 03/10/18 12:25 76 19 80/54 97 03/10/18 12:00 96 Nasal Cannula 03/10/18 11:32 79 17 96 03/10/18 11:31 76/35 03/10/18 11:17 80 15 92 Physical Exam General Appearance: WD/WN, no apparent distress Eyes: normal inspection ENT: + pertinent finding (mmd) Neck: supple Respiratory/Chest: lungs clear, + decreased breath sounds Cardiovascular: regular rate, rhythm, no edema Abdomen: soft, + tenderness Extremities: non-tender, no pedal edema Neurologic/Psychiatric: alert, oriented x 3 Skin: normal color Laboratory Results Item Value Date Time Urine Culture - Preliminary Resulted 03/10/18 1655 Urine,Catheterized Gram Negative Bacilli Blood Culture - Preliminary Resulted 03/10/18 1113 Blood Gram Negative Bacilli Blood Culture - Preliminary Resulted 03/10/18 1047 Blood Gram Negative Bacilli Last 24 Hours Test 03/10/18 11:13 03/10/18 11:30 03/10/18 15:20 03/10/18 15:23 White Blood Count 24.56 K/uL Red Blood Count 3.66 M/uL Hemoglobin 10.9 g/dL Hematocrit 34.3 % Mean Corpuscular Volume 93.7 fL Mean Corpuscular Hemoglobin 29.8 pg Mean Corpuscular Hemoglobin Concent 31.8 g/dl Platelet Count 204 K/uL Mean Platelet Volume 8.7 fL Neutrophils (%) (Auto) 89.5 % Lymphocytes (%) (Auto) 3.8 % Monocytes (%) (Auto) 5.7 % Eosinophils (%) (Auto) 0.2 % Basophils (%) (Auto) 0.1 % Neutrophils # (Auto) 22.00 K/uL Lymphocytes # (Auto) 0.93 K/uL Monocytes # (Auto) 1.40 K/uL Eosinophils # (Auto) 0.04 K/uL Basophils # (Auto) 0.02 K/uL RDW Standard Deviation 55.5 fL RDW Coefficient of Variation 16.3 % Immature Granulocyte % (Auto) 0.7 % Immature Granulocyte # (Auto) 0.17 K/uL Urine Color DK YELLOW Urine Appearance TURBID Urine pH 6.0 Urine Specific [place] 1.020 Urine Protein 2+ Urine Glucose (UA) NEG Urine Ketones TRACE Urine Occult Blood 3+ Urine Nitrite NEG Urine Bilirubin NEG Urine Urobilinogen NEG Urine Leukocyte Esterase LARGE Urine WBC (Auto) >30 /hpf Urine RBC (Auto) 10-30 /hpf Urine Hyaline Casts (Auto) 1-5 /lpf Urine Epithelial Cells (Auto) >30 /lpf Urine Bacteria (Auto) 4+ Urine Crystals CALCIUM OXALATE Urine Pathogenic Casts /lpf Urine Yeast (Auto) Sodium Level 140 mmol/L Potassium Level 4.0 mmol/L Chloride Level 108 mmol/L Carbon Dioxide Level 22 mmol/L Anion Gap 10.0 mmol/L Blood Urea Nitrogen 25 mg/dl Creatinine 1.95 mg/dl Est Creatinine Clear Calc Drug Dose 18.1 ml/min Estimated GFR () 26.5 Estimated GFR (Non- 22.9 BUN/Creatinine Ratio 12.8 Random Glucose 121 mg/dl Calcium Level 7.3 mg/dl Lactic Acid Level 4.9 mmol/L Test 03/10/18 18:29 03/10/18 19:20 03/10/18 19:27 03/10/18 23:55 Arterial Blood pH 7.45 Arterial Blood Partial Pressure CO2 31 mmHg Arterial Blood Partial Pressure O2 78 mm/Hg Arterial Blood HCO3 21 mmol/L Arterial Blood Oxygen Saturation 94.6 % Arterial Blood Base Excess -2.5 mEq/L Arterial Blood Gas Delivery 5L Randolph Test POS Prothrombin Time 60.8 SECONDS Prothromb Time International Ratio 6.0 Sodium Level 140 mmol/L 140 mmol/L Potassium Level 3.7 mmol/L 3.8 mmol/L Chloride Level 108 mmol/L 107 mmol/L Carbon Dioxide Level 21 mmol/L 24 mmol/L Anion Gap 11.0 mmol/L 9.0 mmol/L Blood Urea Nitrogen 25 mg/dl 25 mg/dl Creatinine 1.86 mg/dl 1.80 mg/dl Est Creatinine Clear Calc Drug Dose 19.0 ml/min 19.7 ml/min Estimated GFR () 28.1 29.2 Estimated GFR (Non- 24.2 25.2 BUN/Creatinine Ratio 13.3 13.9 Random Glucose 114 mg/dl 130 mg/dl Lactic Acid Level 4.5 mmol/L 5.1 mmol/L Calcium Level 7.7 mg/dl 7.2 mg/dl Bedside Glucose 128 mg/dl Ionized Calcium 1.04 mmol/l Test 03/10/18 23:58 03/11/18 03:57 03/11/18 05:58 03/11/18 10:23 Bedside Glucose 168 mg/dl 126 mg/dl White Blood Count 16.41 K/uL Red Blood Count 2.69 M/uL Hemoglobin 8.0 g/dL Hematocrit 24.9 % Mean Corpuscular Volume 92.6 fL Mean Corpuscular Hemoglobin 29.7 pg Mean Corpuscular Hemoglobin Concent 32.1 g/dl Platelet Count 126 K/uL Mean Platelet Volume 8.8 fL Neutrophils (%) (Auto) 86.4 % Lymphocytes (%) (Auto) 7.4 % Monocytes (%) (Auto) 5.4 % Eosinophils (%) (Auto) 0.2 % Basophils (%) (Auto) 0.1 % Neutrophils # (Auto) 14.17 K/uL Lymphocytes # (Auto) 1.22 K/uL Monocytes # (Auto) 0.88 K/uL Eosinophils # (Auto) 0.04 K/uL Basophils # (Auto) 0.01 K/uL RDW Standard Deviation 56.3 fL RDW Coefficient of Variation 16.4 % Immature Granulocyte % (Auto) 0.5 % Immature Granulocyte # (Auto) 0.09 K/uL Red Blood Cell Morphology Unremarkable Prothrombin Time 36.4 SECONDS Prothromb Time International Ratio 3.6 Sodium Level 139 mmol/L Potassium Level 3.8 mmol/L Chloride Level 109 mmol/L Carbon Dioxide Level 25 mmol/L Anion Gap 5.0 mmol/L Blood Urea Nitrogen 25 mg/dl Creatinine 1.55 mg/dl Est Creatinine Clear Calc Drug Dose 22.8 ml/min Estimated GFR () 35.0 Estimated GFR (Non- 30.2 BUN/Creatinine Ratio 16.0 Random Glucose 121 mg/dl Lactic Acid Level 2.5 mmol/L Calcium Level 6.9 mg/dl Phosphorus Level 3.0 mg/dl Magnesium Level 1.6 mg/dl Total Bilirubin 0.8 mg/dl Aspartate Amino Transf (AST/SGOT) 60 U/L Alanine Aminotransferase (ALT/SGPT) 18 U/L Alkaline Phosphatase 61 U/L Total Protein 4.7 gm/dl Albumin 1.9 gm/dl Globulin 2.8 gm/dl Albumin/Globulin Ratio 0.7 Assessment and Plan (1) Gram negative septicemia Assessment & Plan: continue abx for now, if no gpc identified, will stop vanco. follow culture results. (2) UTI (urinary tract infection)
--- NOTE | 2018-03-11 11:47 | Critical Care Progress Note ---
Critical Care Progress Note Date of Service March 11, 2018. Attending Dr. Pagan Subjective Patient is doing well this am. She is alert to person and place and not to time. She does not understand the details of her hospitalization. She denies CP , SOB, abdominal pain. Objective General; NAD, patient is comfortable HEENT; NC/AT, PERRL, EOMI, supple, NT CV; RRR, no m/r/g, [id number] Pulm; CTAB, no w/r/r, no accessory muscle use Abdomen; soft, nontender, nondistended, normal bowel sounds, mild suprapubic tenderness Extremities; No edema, no deformity Neuro; Alert and oriented to person and place, but not time Assessment & Plan 87 yo female being evaluated in the ICU for acute hypoxic resp failure in the setting of sepsis-- likely 2/2 ascending UTI in the setting of nephrolithiasis. PMH includes; HLD, HTN, Afib on coumadin , depression, GERD, SBO Assessment; Patient was stented last night. She is doing well this am. INR was 3.6 this am following PO vit K last night. BCx and UCx grew gram negative bacilli. Plan; -Continue IV abx. -Repeat urine culture and blood cultures Neuro -Acute encephalopathy 2/2 sepsis--patient is confused; oriented to person, but not to place and time -Depression--cont. citalopram, mirtazapine Cardiac -Patient has been hypotensive--continue to monitor need for norepinephrine -EKG showed NSR--decreased t wave amplitude -Echo today--EF 55-60%, normal LV function, no wall motion abnormalities -Cont. ASA, Lipitor Pulm -CXR--unremarkable for cardiopulm process -Patient on 2L down from 5 L-->cont. to wean today -PT/OT orders placed GI -Cont PPI -Bowel regimen PRN--Miralax, milk of mag -Head of the bed>30 degrees -Diet--boost 1 can TID and PRN -LFT's in the am Renal/lytes -Post renal MEGHAN -Cr 2.13 on admission-->trending down 1.55 -Mg repleted--no other electrolyte abnormalities Endo -No documented history of DM -Sugars have been stable -Hypothyroid--TSH-1.2--cont. levothyroxine -Random cortisol ordered Heme -Anemia--Hgb 8, HCT 24.7, PLT 126--repeat H/H at 15:00 -INR--3.6, trending down following PO Vit K ID -LA is trending down--2.5 -Ascending UTI/possible Pyelonephritis--UA--+LE, >30 WBC, 4+ bacteria -Treated with IV Zosyn -UCx--gram (-)bacilli -BCx--gram (-) bacilli -Repeat blood and urine cultures. Lines -PIV intact -MIVF--LR 80 mls/hr DVT ppx -SCD/TEDS Resuscitation status -DO NOT RESUSCITATE in event of cardiac arrest Dr. Mckee was resident physician during care of patient. I separately evaluated patient and did history and exam. I discussed the case with the resident and generally agree with the findings and plan. Patient's severe sepsis significantly improved, acute kidney injury improving, continued ICU status as the patient still has acute encephalopathy likely metabolic in origin secondary to sepsis. INR within acceptable limits at this point will recheck tomorrow, no indication for chemical VT E prophylaxis given therapeutic INR. I have personally spent 35 minutes of critical care time in the direct management of this patient. This is a life/limb threatening event. This includes time spent evaluating patient, direct bedside care, chart review, placing orders, interpretation of diagnostic studies, discussion with consultants, patient, and/or family members regarding treatment decisions, as well as other required patient management activities. This time is exclusive of all separately billable procedures, and teaching time and separate from and in addition to any other critical care service time. Data Medications: Current Inpatient Medications Medications (Trade) Dose Ordered Sig/Jamilah Route Start Time Stop Time Status Last Admin Dose Admin Miscellaneous Information (Consult) 1 ea UD PRN N/A 03/10/18 12:45 04/09/18 12:44 Atorvastatin Calcium (Lipitor Tab) 20 mg HS PO 03/10/18 21:00 04/09/18 20:59 Cholecalciferol (Vitamin D Tab) 2,000 inter.unit HS PO 03/10/18 21:00 04/09/18 20:59 Citalopram Hydrobromide (celeXA TAB) 20 mg DAILY PO 03/11/18 09:00 04/10/18 08:59 03/11/18 07:51 20 MG Gabapentin (Neurontin Cap) 100 mg HS PO 03/10/18 21:00 04/09/18 20:59 Levothyroxine Sodium (Synthroid Tab) 25 mcg DAILYBB PO 03/11/18 06:00 04/10/18 06:29 Mirtazapine (Remeron Tab) 15 mg HS PO 03/10/18 21:00 04/09/18 20:59 Oxybutynin Chloride (Ditropan Tab) 5 mg BID PO 03/10/18 21:00 04/09/18 20:59 03/11/18 07:52 5 MG Pantoprazole Sodium (Protonix Tab) 40 mg DAILY PO 03/11/18 09:00 04/10/18 08:59 03/11/18 07:52 40 MG Acetaminophen (Tylenol Tab) 650 mg Q4H PRN PO 03/10/18 12:00 04/09/18 11:59 03/11/18 08:48 650 MG Al Hydrox/Mg Hydrox/Simethicone (Maalox Max Susp) 15 ml Q4H PRN PO 03/10/18 12:00 04/09/18 11:59 Magnesium Hydroxide (Milk Of Magnesia Susp) 30 ml Q12H PRN PO 03/10/18 12:00 04/09/18 11:59 Ondansetron HCl (Zofran Inj) 4 mg Q6H PRN IV 03/10/18 12:00 04/09/18 11:59 Nitroglycerin (Nitrostat Tab) 0.4 mg UD PRN SL 03/10/18 12:00 04/09/18 11:59 Polyethylene (Miralax Powder Packet) 17 gm DAILY PRN PO 03/10/18 12:00 04/09/18 11:59 Lactated Ringer's 1,000 ml @ 80 mls/hr [id number] IV 03/10/18 13:30 04/09/18 13:29 03/11/18 05:47 125 MLS/HR Albuterol/ Ipratropium (Duoneb) 3 ml QIDR INH 03/10/18 16:00 04/09/18 15:59 03/11/18 11:10 3 ML Piperacillin Sod/ Tazobactam Sod 3.375 gm/Dextrose 115 ml @ 28.75 mls/ hr Q12H IV 03/10/18 20:00 03/20/18 19:59 03/11/18 08:07 28.75 MLS/HR Norepinephrine Bitartrate 8 mg/ Dextrose 508 ml @ 0 mls/hr Q0M PRN IV 03/10/18 23:09 04/09/18 23:08 Thiamine HCl (Vitamin B-1 Tab) 200 mg QAM PO 03/12/18 09:00 04/11/18 08:59 Enteral Nutritional Formula (Boost) 1 can TID PRN PO 03/11/18 10:15 04/10/18 10:14 Vital Signs: Date Time Temp Pulse Resp B/P (MAP) Pulse Ox O2 Delivery O2 Flow Rate FiO2 03/11/18 11:10 76 18 95 Nasal Cannula 2.0 03/11/18 09:00 83 92/54 (67) 95 Nasal Cannula 2.0 03/11/18 08:02 Nasal Cannula 2.0 03/11/18 08:00 36.7 81 89/52 (64) 95 Nasal Cannula 2.0 03/11/18 07:04 78 18 95 Nasal Cannula 1.5 03/11/18 07:00 76 93/55 (68) 93 Nasal Cannula 2.0 03/11/18 05:00 79 92/54 (67) 94 03/11/18 04:31 79 111/54 (73) 97 03/11/18 04:06 36.5 76 18 113/64 (80) 96 Nasal Cannula 2.0 03/11/18 04:00 Nasal Cannula 2.0 03/11/18 03:00 78 18 93/45 (61) 95 Nasal Cannula 2.0 03/11/18 02:15 82 16 103/72 (82) 95 Nasal Cannula 2.0 03/11/18 01:00 83 16 84/46 (59) 92 Nasal Cannula 2.0 03/11/18 00:01 Nasal Cannula 2.0 03/11/18 00:00 36.3 84 18 93/56 (68) 96 Nasal Cannula 2.0 03/10/18 23:30 88 16 74/40 (51) 94 Nasal Cannula 2.0 03/10/18 23:15 89 16 83/44 (57) 94 Nasal Cannula 2.0 03/10/18 23:09 89 16 74/40 (51) 94 Nasal Cannula 2.0 03/10/18 23:00 90 18 78/41 (53) 94 Nasal Cannula 2.0 03/10/18 22:15 95 18 84/45 (58) 95 Nasal Cannula 2.0 03/10/18 22:00 36.7 93 18 93/49 (64) 93 Nasal Cannula 2.0 03/10/18 21:45 98 18 81/52 (62) 95 Nasal Cannula 2.0 03/10/18 21:30 37 96 14 88/46 (58) 95 Nasal Cannula 2 03/10/18 21:20 98 14 86/55 (61) 95 Nasal Cannula 2 03/10/18 21:10 99 14 86/49 (66) 95 Nasal Cannula 2 03/10/18 21:00 100 12 87/47 (57) 95 Nasal Cannula 2 03/10/18 20:54 37.5 100 14 82/69 (72) 95 Nasal Cannula 2 03/10/18 20:00 93 Nasal Cannula 2.0 03/10/18 20:00 37.2 103 18 101/44 (63) 93 Nasal Cannula 2.0 03/10/18 19:39 94 18 96 Nasal Cannula 2.0 03/10/18 19:30 92 18 92/49 (63) 92 Nasal Cannula 2.0 03/10/18 19:07 94 18 96/54 (68) 94 Nasal Cannula 2.0 03/10/18 19:01 93 18 80/46 (57) 94 Nasal Cannula 2.0 03/10/18 18:45 96 2.0 03/10/18 16:00 96 Nasal Cannula 2.0 03/10/18 15:50 37.6 90 19 115/71 (86) 100 Nasal Cannula 5.0 03/10/18 15:04 86 20 100 Nasal Cannula 5.0 03/10/18 14:20 36.8 77 18 97/57 (70) 91 Nasal Cannula 2.0 03/10/18 12:25 76 19 80/54 97 03/10/18 12:00 96 Nasal Cannula 03/10/18 11:32 79 17 96 03/10/18 11:31 76/35 Laboratory Results: Last 24 Hours Test 03/10/18 11:30 03/10/18 15:20 03/10/18 15:23 03/10/18 18:29 Urine Color DK YELLOW Urine Appearance TURBID Urine pH 6.0 Urine Specific [place] 1.020 Urine Protein 2+ Urine Glucose (UA) NEG Urine Ketones TRACE Urine Occult Blood 3+ Urine Nitrite NEG Urine Bilirubin NEG Urine Urobilinogen NEG Urine Leukocyte Esterase LARGE Urine WBC (Auto) >30 /hpf Urine RBC (Auto) 10-30 /hpf Urine Hyaline Casts (Auto) 1-5 /lpf Urine Epithelial Cells (Auto) >30 /lpf Urine Bacteria (Auto) 4+ Urine Crystals CALCIUM OXALATE Urine Pathogenic Casts /lpf Urine Yeast (Auto) Sodium Level 140 mmol/L Potassium Level 4.0 mmol/L Chloride Level 108 mmol/L Carbon Dioxide Level 22 mmol/L Anion Gap 10.0 mmol/L Blood Urea Nitrogen 25 mg/dl Creatinine 1.95 mg/dl Est Creatinine Clear Calc Drug Dose 18.1 ml/min Estimated GFR () 26.5 Estimated GFR (Non- 22.9 BUN/Creatinine Ratio 12.8 Random Glucose 121 mg/dl Calcium Level 7.3 mg/dl Lactic Acid Level 4.9 mmol/L Arterial Blood pH 7.45 Arterial Blood Partial Pressure CO2 31 mmHg Arterial Blood Partial Pressure O2 78 mm/Hg Arterial Blood HCO3 21 mmol/L Arterial Blood Oxygen Saturation 94.6 % Arterial Blood Base Excess -2.5 mEq/L Arterial Blood Gas Delivery 5L [place] Test POS Test 03/10/18 19:20 03/10/18 19:27 03/10/18 23:55 03/10/18 23:58 Prothrombin Time 60.8 SECONDS Prothromb Time International Ratio 6.0 Sodium Level 140 mmol/L 140 mmol/L Potassium Level 3.7 mmol/L 3.8 mmol/L Chloride Level 108 mmol/L 107 mmol/L Carbon Dioxide Level 21 mmol/L 24 mmol/L Anion Gap 11.0 mmol/L 9.0 mmol/L Blood Urea Nitrogen 25 mg/dl 25 mg/dl Creatinine 1.86 mg/dl 1.80 mg/dl Est Creatinine Clear Calc Drug Dose 19.0 ml/min 19.7 ml/min Estimated GFR () 28.1 29.2 Estimated GFR (Non- 24.2 25.2 BUN/Creatinine Ratio 13.3 13.9 Random Glucose 114 mg/dl 130 mg/dl Lactic Acid Level 4.5 mmol/L 5.1 mmol/L Calcium Level 7.7 mg/dl 7.2 mg/dl Bedside Glucose 128 mg/dl 168 mg/dl Ionized Calcium 1.04 mmol/l Test 03/11/18 03:57 03/11/18 05:58 03/11/18 10:23 White Blood Count 16.41 K/uL Red Blood Count 2.69 M/uL Hemoglobin 8.0 g/dL Hematocrit 24.9 % Mean Corpuscular Volume 92.6 fL Mean Corpuscular Hemoglobin 29.7 pg Mean Corpuscular Hemoglobin Concent 32.1 g/dl Platelet Count 126 K/uL Mean Platelet Volume 8.8 fL Neutrophils (%) (Auto) 86.4 % Lymphocytes (%) (Auto) 7.4 % Monocytes (%) (Auto) 5.4 % Eosinophils (%) (Auto) 0.2 % Basophils (%) (Auto) 0.1 % Neutrophils # (Auto) 14.17 K/uL Lymphocytes # (Auto) 1.22 K/uL Monocytes # (Auto) 0.88 K/uL Eosinophils # (Auto) 0.04 K/uL Basophils # (Auto) 0.01 K/uL RDW Standard Deviation 56.3 fL RDW Coefficient of Variation 16.4 % Immature Granulocyte % (Auto) 0.5 % Immature Granulocyte # (Auto) 0.09 K/uL Red Blood Cell Morphology Unremarkable Prothrombin Time 36.4 SECONDS Prothromb Time International Ratio 3.6 Sodium Level 139 mmol/L Potassium Level 3.8 mmol/L Chloride Level 109 mmol/L Carbon Dioxide Level 25 mmol/L Anion Gap 5.0 mmol/L Blood Urea Nitrogen 25 mg/dl Creatinine 1.55 mg/dl Est Creatinine Clear Calc Drug Dose 22.8 ml/min Estimated GFR () 35.0 Estimated GFR (Non- 30.2 BUN/Creatinine Ratio 16.0 Random Glucose 121 mg/dl Lactic Acid Level 2.5 mmol/L Calcium Level 6.9 mg/dl Phosphorus Level 3.0 mg/dl Magnesium Level 1.6 mg/dl Total Bilirubin 0.8 mg/dl Aspartate Amino Transf (AST/SGOT) 60 U/L Alanine Aminotransferase (ALT/SGPT) 18 U/L Alkaline Phosphatase 61 U/L Total Protein 4.7 gm/dl Albumin 1.9 gm/dl Globulin 2.8 gm/dl Albumin/Globulin Ratio 0.7 Bedside Glucose 126 mg/dl
[2018-03-11] MEDS ORDERED: PHENAZOPYRIDINE HCL 100 MG TAB PO PRN (12:00)
[2018-03-11] MEDS ORDERED: PIPERACILL/TAZOBAC IV 3.375 GM in D5W 100ML IV SCH (13:45)
[2018-03-11 15:08] LABS: HEMATOCRIT 25.2 % (37-47); HEMOGLOBIN 8.2 g/dL (12.0-16.0)
--- NOTE | 2018-03-11 17:01 | Progress Note ---
Subjective Date of Service: March 11, 2018. Subjective Pt evaluation today including: conversation w/ patient, physical exam, lab review, review of studies, review of inpatient medication list Saw/examined the patient in room 105 She's doing well, pain controlled, no nausea/vomiting +decreased appetite Problem List Medical Problems: (1) Abdominal pain Status: Acute (2) Bowel obstruction Status: Acute (3) Gastroenteritis Status: Acute (4) Leukocytosis Status: Acute (5) Low back pain Status: Acute (6) Sepsis Status: Acute Review of Systems Constitutional: No fever, No chills, No weakness Respiratory: No cough, No sputum, No shortness of breath Cardiac: No chest pain, No edema, No palpitations Abdomen: No pain, No nausea, No vomiting, No diarrhea, No constipation, No GI bleeding Heme: No abnormal bleeding/bruising Medications Current Inpatient Medications Medications (Trade) Dose Ordered Sig/Jamilah Route Start Time Stop Time Status Last Admin Dose Admin Miscellaneous Information (Consult) 1 ea UD PRN N/A 03/10/18 12:45 04/09/18 12:44 Atorvastatin Calcium (Lipitor Tab) 20 mg HS PO 03/10/18 21:00 04/09/18 20:59 Cholecalciferol (Vitamin D Tab) 2,000 inter.unit HS PO 03/10/18 21:00 04/09/18 20:59 Citalopram Hydrobromide (celeXA TAB) 20 mg DAILY PO 03/11/18 09:00 04/10/18 08:59 03/11/18 07:51 20 MG Gabapentin (Neurontin Cap) 100 mg HS PO 03/10/18 21:00 04/09/18 20:59 Levothyroxine Sodium (Synthroid Tab) 25 mcg DAILYBB PO 03/11/18 06:00 04/10/18 06:29 Mirtazapine (Remeron Tab) 15 mg HS PO 03/10/18 21:00 04/09/18 20:59 Oxybutynin Chloride (Ditropan Tab) 5 mg BID PO 03/10/18 21:00 04/09/18 20:59 03/11/18 07:52 5 MG Pantoprazole Sodium (Protonix Tab) 40 mg DAILY PO 03/11/18 09:00 04/10/18 08:59 03/11/18 07:52 40 MG Acetaminophen (Tylenol Tab) 650 mg Q4H PRN PO 03/10/18 12:00 04/09/18 11:59 03/11/18 08:48 650 MG Al Hydrox/Mg Hydrox/Simethicone (Maalox Max Susp) 15 ml Q4H PRN PO 03/10/18 12:00 04/09/18 11:59 Magnesium Hydroxide (Milk Of Magnesia Susp) 30 ml Q12H PRN PO 03/10/18 12:00 04/09/18 11:59 Ondansetron HCl (Zofran Inj) 4 mg Q6H PRN IV 03/10/18 12:00 04/09/18 11:59 Nitroglycerin (Nitrostat Tab) 0.4 mg UD PRN SL 03/10/18 12:00 04/09/18 11:59 Polyethylene (Miralax Powder Packet) 17 gm DAILY PRN PO 03/10/18 12:00 04/09/18 11:59 Lactated Ringer's 1,000 ml @ 80 mls/hr [id number] IV 03/10/18 13:30 04/09/18 13:29 03/11/18 15:57 80 MLS/HR Albuterol/ Ipratropium (Duoneb) 3 ml QIDR INH 03/10/18 16:00 04/09/18 15:59 03/11/18 14:58 3 ML Norepinephrine Bitartrate 8 mg/ Dextrose 508 ml @ 0 mls/hr Q0M PRN IV 03/10/18 23:09 04/09/18 23:08 Thiamine HCl (Vitamin B-1 Tab) 200 mg QAM PO 03/12/18 09:00 04/11/18 08:59 Enteral Nutritional Formula (Boost) 1 can TID PRN PO 03/11/18 10:15 04/10/18 10:14 Phenazopyridine HCl (Pyridium Tab) 100 mg TID PRN PO 03/11/18 12:00 04/10/18 11:59 03/11/18 14:23 100 MG Piperacillin Sod/ Tazobactam Sod 3.375 gm/Dextrose 115 ml @ 28.75 mls/ hr Q8H IV 03/11/18 16:00 03/24/18 15:59 03/11/18 15:57 28.75 MLS/HR Objective Vital Signs Date Time Temp Pulse Resp B/P (MAP) Pulse Ox O2 Delivery O2 Flow Rate FiO2 03/11/18 14:58 70 18 6 Nasal Cannula 2.0 03/11/18 13:00 36.2 74 85/43 (57) 94 Room Air 03/11/18 12:16 102/47 (65) 03/11/18 12:00 79 78/44 (55) 94 Nasal Cannula 2.0 03/11/18 12:00 Nasal Cannula 2.0 03/11/18 11:10 76 18 95 Nasal Cannula 2.0 03/11/18 11:00 71 84/50 (61) 92 Nasal Cannula 2.0 03/11/18 10:00 82 84/50 (61) 93 Nasal Cannula 2.0 03/11/18 09:00 83 92/54 (67) 95 Nasal Cannula 2.0 03/11/18 08:02 Nasal Cannula 2.0 03/11/18 08:00 36.7 81 89/52 (64) 95 Nasal Cannula 2.0 03/11/18 08:00 Nasal Cannula 03/11/18 07:04 78 18 95 Nasal Cannula 1.5 03/11/18 07:00 76 93/55 (68) 93 Nasal Cannula 2.0 03/11/18 05:00 79 92/54 (67) 94 03/11/18 04:31 79 111/54 (73) 97 03/11/18 04:06 36.5 76 18 113/64 (80) 96 Nasal Cannula 2.0 03/11/18 04:00 Nasal Cannula 2.0 03/11/18 03:00 78 18 93/45 (61) 95 Nasal Cannula 2.0 03/11/18 02:15 82 16 103/72 (82) 95 Nasal Cannula 2.0 03/11/18 01:00 83 16 84/46 (59) 92 Nasal Cannula 2.0 03/11/18 00:01 Nasal Cannula 2.0 03/11/18 00:00 36.3 84 18 93/56 (68) 96 Nasal Cannula 2.0 03/10/18 23:30 88 16 74/40 (51) 94 Nasal Cannula 2.0 03/10/18 23:15 89 16 83/44 (57) 94 Nasal Cannula 2.0 03/10/18 23:09 89 16 74/40 (51) 94 Nasal Cannula 2.0 03/10/18 23:00 90 18 78/41 (53) 94 Nasal Cannula 2.0 03/10/18 22:15 95 18 84/45 (58) 95 Nasal Cannula 2.0 03/10/18 22:00 36.7 93 18 93/49 (64) 93 Nasal Cannula 2.0 03/10/18 21:45 98 18 81/52 (62) 95 Nasal Cannula 2.0 03/10/18 21:30 37 96 14 88/46 (58) 95 Nasal Cannula 2 03/10/18 21:20 98 14 86/55 (61) 95 Nasal Cannula 2 03/10/18 21:10 99 14 86/49 (66) 95 Nasal Cannula 2 03/10/18 21:00 100 12 87/47 (57) 95 Nasal Cannula 2 03/10/18 20:54 37.5 100 14 82/69 (72) 95 Nasal Cannula 2 03/10/18 20:00 93 Nasal Cannula 2.0 03/10/18 20:00 37.2 103 18 101/44 (63) 93 Nasal Cannula 2.0 03/10/18 19:39 94 18 96 Nasal Cannula 2.0 03/10/18 19:30 92 18 92/49 (63) 92 Nasal Cannula 2.0 03/10/18 19:07 94 18 96/54 (68) 94 Nasal Cannula 2.0 03/10/18 19:01 93 18 80/46 (57) 94 Nasal Cannula 2.0 03/10/18 18:45 96 2.0 Physical Exam General Appearance: no apparent distress Respiratory/Chest: lungs clear, normal breath sounds, no respiratory distress, no accessory muscle use Cardiovascular: regular rate, rhythm, no edema, no murmur Abdomen: normal bowel sounds, non tender, soft Extremities: normal inspection, no pedal edema Neurologic/Psychiatric: no motor/sensory deficits, alert, normal mood/affect Laboratory Results Last 24 Hours Test 03/10/18 18:29 03/10/18 19:20 03/10/18 19:27 03/10/18 23:55 Arterial Blood pH 7.45 Arterial Blood Partial Pressure CO2 31 mmHg Arterial Blood Partial Pressure O2 78 mm/Hg Arterial Blood HCO3 21 mmol/L Arterial Blood Oxygen Saturation 94.6 % Arterial Blood Base Excess -2.5 mEq/L Arterial Blood Gas Delivery 5L Randolph Test POS Prothrombin Time 60.8 SECONDS Prothromb Time International Ratio 6.0 Sodium Level 140 mmol/L 140 mmol/L Potassium Level 3.7 mmol/L 3.8 mmol/L Chloride Level 108 mmol/L 107 mmol/L Carbon Dioxide Level 21 mmol/L 24 mmol/L Anion Gap 11.0 mmol/L 9.0 mmol/L Blood Urea Nitrogen 25 mg/dl 25 mg/dl Creatinine 1.86 mg/dl 1.80 mg/dl Est Creatinine Clear Calc Drug Dose 19.0 ml/min 19.7 ml/min Estimated GFR () 28.1 29.2 Estimated GFR (Non- 24.2 25.2 BUN/Creatinine Ratio 13.3 13.9 Random Glucose 114 mg/dl 130 mg/dl Lactic Acid Level 4.5 mmol/L 5.1 mmol/L Calcium Level 7.7 mg/dl 7.2 mg/dl Bedside Glucose 128 mg/dl Ionized Calcium 1.04 mmol/l Test 03/10/18 23:58 03/11/18 03:57 03/11/18 05:58 03/11/18 10:23 Bedside Glucose 168 mg/dl 126 mg/dl White Blood Count 16.41 K/uL Red Blood Count 2.69 M/uL Hemoglobin 8.0 g/dL Hematocrit 24.9 % Mean Corpuscular Volume 92.6 fL Mean Corpuscular Hemoglobin 29.7 pg Mean Corpuscular Hemoglobin Concent 32.1 g/dl Platelet Count 126 K/uL Mean Platelet Volume 8.8 fL Neutrophils (%) (Auto) 86.4 % Lymphocytes (%) (Auto) 7.4 % Monocytes (%) (Auto) 5.4 % Eosinophils (%) (Auto) 0.2 % Basophils (%) (Auto) 0.1 % Neutrophils # (Auto) 14.17 K/uL Lymphocytes # (Auto) 1.22 K/uL Monocytes # (Auto) 0.88 K/uL Eosinophils # (Auto) 0.04 K/uL Basophils # (Auto) 0.01 K/uL RDW Standard Deviation 56.3 fL RDW Coefficient of Variation 16.4 % Immature Granulocyte % (Auto) 0.5 % Immature Granulocyte # (Auto) 0.09 K/uL Red Blood Cell Morphology Unremarkable Prothrombin Time 36.4 SECONDS Prothromb Time International Ratio 3.6 Sodium Level 139 mmol/L Potassium Level 3.8 mmol/L Chloride Level 109 mmol/L Carbon Dioxide Level 25 mmol/L Anion Gap 5.0 mmol/L Blood Urea Nitrogen 25 mg/dl Creatinine 1.55 mg/dl Est Creatinine Clear Calc Drug Dose 22.8 ml/min Estimated GFR () 35.0 Estimated GFR (Non- 30.2 BUN/Creatinine Ratio 16.0 Random Glucose 121 mg/dl Lactic Acid Level 2.5 mmol/L Calcium Level 6.9 mg/dl Phosphorus Level 3.0 mg/dl Magnesium Level 1.6 mg/dl Total Bilirubin 0.8 mg/dl Aspartate Amino Transf (AST/SGOT) 60 U/L Alanine Aminotransferase (ALT/SGPT) 18 U/L Alkaline Phosphatase 61 U/L Total Protein 4.7 gm/dl Albumin 1.9 gm/dl Globulin 2.8 gm/dl Albumin/Globulin Ratio 0.7 Random Cortisol 21.02 mcg/dl Test 03/11/18 14:44 03/11/18 16:18 Hemoglobin 8.2 g/dL Hematocrit 25.2 % Lactic Acid Level 1.6 mmol/L Bedside Glucose 120 mg/dl Assessment and Plan This is an 87 year old female with a 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 of paroxysmal atrial fibrillation, CAD and hx. 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 of DVT and Paroxysmal A. Fib - on Coumadin - supratherapeutic INR on admission - now improving Anemia - unsure of underlying cause, hematuria from obstructing stone? kidney injury? - monitor H/H - monitor INR, hold Coumadin until INR therapeutic - if no improvement, will check iron panel, B12, folate CAD hx. of NSTEMI - continue statin - restart b-tayler once blood pressure improves DVT ppx - SCDs secondary to anemia DNR/DNI
[2018-03-11] MEDS: MIRTAZAPINE TAB 15 MG TAB PO SCH (20:51)
[2018-03-11] MEDS: ATORVASTATIN 20 MG TAB PO SCH (20:51)
[2018-03-11] MEDS: GABAPENTIN 100 MG CAP PO SCH (20:51)
[2018-03-11] MEDS: CHOLECALCIFEROL 1000 INTER.UNIT TAB PO SCH (20:52)
[2018-03-12] VITALS (17 sets, daily range): BP systolic 85–137; BP diastolic 46–76; PULSE 68–95; TEMP 36.6–37.3; O2SAT 91–98
[2018-03-12] MEDS: PIPERACILL/TAZOBAC IV 3.375 GM in D5W 100ML IV SCH ×2 (00:26→08:04)
[2018-03-12] MEDS: LACTATED RINGER'S 1000ML 1,000 ML IV SCH (03:38)
[2018-03-12 04:36] LABS: BASO % 0.2 %; BASO ABS # 0.02 K/uL (0-0.2); EOS % 2.8 %; EOS ABS # 0.33 K/uL (0-0.5); HEMATOCRIT 27.7 % (37-47); HEMOGLOBIN 8.6 g/dL (12.0-16.0); IG# 0.03 K/uL (0.00-0.02); LYMPH % 9.6 %; LYMPH ABS # 1.13 K/uL (1.2-3.4); MEAN CELL VOLUME 91.7 fL (80-100); MEAN CORPUSCULAR HEMOGLOBIN 28.5 pg (25-34); MEAN PLATELET VOLUME 9.3 fL (7.4-10.4); MONO % 4.4 %; MONO ABS # 0.51 K/uL (0.11-0.59); NEUT % 82.7 %; NEUT ABS # 9.69 K/uL (1.4-6.5); PLATELET COUNT 143 K/uL (130-400); RED CELL DISTRIBUTION WIDTH CV 16.6 % (11.5-14.5); RED CELL DISTRIBUTION WIDTH SD 56.1 fL (36.4-46.3); WHITE BLOOD COUNT 11.71 K/uL (4.8-10.8)
[2018-03-12 04:46] LABS: INR 1.8 (0.9-1.1)
[2018-03-12 05:00] LABS: ALBUMIN 1.9 gm/dl (3.4-5.0); CALCIUM 7.6 mg/dl (8.5-10.1); CREATININE 1.16 mg/dl (0.60-1.20); POTASSIUM 3.4 mmol/L (3.5-5.1)
[2018-03-12 05:16] LABS: PHOSPHORUS 2.3 mg/dl (2.5-4.9); TOTAL PROTEIN 5.4 gm/dl (6.4-8.2)
[2018-03-12] MEDS ORDERED: POTASSIUM PHOS 3 MMOL/1 ML INFUSION IV STA (06:04)
[2018-03-12] MEDS: LEVOTHYROXINE 25 MCG TAB PO SCH (06:07)
[2018-03-12] MEDS ORDERED: POTASSIUM PHOSPHATE INJ 15 MMOL in SODIUM CHLORIDE 0.9% 250ML 250 ML IV ONE (06:15)
[2018-03-12] MEDS: POTASSIUM CHLORIDE 20 MEQ TABCR PO SCH ×2 (06:29→10:13)
--- NOTE | 2018-03-12 06:50 | Clinical Documentation Query ---
CLINICAL DOCUMENTATION QUERY 87-y/o with sepsis 2/2 obstructing left ureteral calculus. Per multiple progress notes and consults patient was confused, oriented to person, but not place or time. In your clinical opinion is this patient being managed for: ( x ) Possible Septic encephalopathy vs. delirium on dementia ( ) Not Agree ( ) Other explanation of clinical findings (Please Explain; If no explanation given, this is considered a no response.) ( ) Unable to determine ( ) Need to Discuss (Please call CDS via extension or qliqCONNECT. If no interaction occurs, this is considered a no response.) The medical record reflects the following clinical findings, treatment, and risk factors. Clinical Indicators: As above. BP's 70-80's/35-50's. WBC's 24.56, hypoxia 89% Treatment: IVF's, multiple IV antibiotics, emergent ureteral stent placement, Risk Factors: Age, infection, hypotension, hypoxia Please clarify and document your clinical opinion in the progress notes and discharge summary. Terms such as "probable", "suspected", "likely", "questionable", "possible", or "still to be ruled out" are acceptable. IF IN AGREEMENT, YOU MUST DOCUMENT ABOVE DIAGNOSTIC STATEMENT IN DAILY PROGRESS NOTES AND DISCHARGE SUMMARY. This document is not part of the patient's record. Thank You, Adan Aburto RN [phone] & via qlicCONNECT
[2018-03-12] MEDS: ALBUT/IPRATROP 3MG/0.5MG NEB 3 ML VIAL INH SCH ×4 (07:12→19:03)
[2018-03-12] MEDS ORDERED: ENOXAPARIN 40 MG/0.4 ML SYR SQ ONE (07:45)
[2018-03-12] MEDS: THIAMINE HCL 100 MG TAB PO SCH (08:04)
[2018-03-12] MEDS: OXYBUTYNIN CHLORIDE 5 MG TAB PO SCH ×2 (08:04→21:02)
[2018-03-12] MEDS: CITALOPRAM 20 MG TAB PO SCH (08:04)
[2018-03-12] MEDS: PANTOprazole SOD 40 MG TAB PO SCH (08:04)
[2018-03-12] MEDS ORDERED: ENOXAPARIN 80 MG/0.8 ML SYR SQ ONE (09:00)
[2018-03-12] MEDS ORDERED: IMIPENEM/CILASTATIN CONSULT ACTIVE PRN (09:00)
[2018-03-12] MEDS ORDERED: LEVOFLOXACIN CONSULT ACTIVE PRN (09:15)
[2018-03-12] MEDS: LEVOFLOXACIN 750MG / D5W IV SCH (09:58)
[2018-03-12] MEDS ORDERED: WARFARIN SOD 3 MG TAB PO ONE (10:00)
--- NOTE | 2018-03-12 11:08 | Progress Note ---
Subjective Date of Service: March 12, 2018. Subjective Pt evaluation today including: conversation w/ patient, physical exam, chart review, lab review Patient was transferred out of the intensive care unit earlier this morning. She remains on antibiotics for treatment of gram-negative sepsis. Imipenem was added yesterday and this morning she was changed to high-dose intravenous levofloxacin prior to transfer out of the intensive care unit. Her white blood cell count continues to improve and is 11 today. Her initial blood cultures are growing gram-negative rods which have yet to be identified. Her repeat blood cultures from the are growing the same. No repeat blood cultures were obtained today. Her urine culture from the at the time of her procedure is growing Morganella which is resistant to ampicillin sulbactam and intermediate to imipenem Citrobacter which is resistant to Rocephin only. She was transitioned off of Zosyn earlier this morning. She did have a temperature of 37.9 overnight but is otherwise been afebrile. On exam today she states she is feeling confused. She does have some pain the area of her heparin shot but otherwise she denies any abdominal pain. She denies any cough shortness of breath nausea vomiting or diarrhea. Her remaining review of systems is reviewed and is unremarkable. Problem List Medical Problems: (1) Abdominal pain Status: Acute (2) Bowel obstruction Status: Acute (3) Gastroenteritis Status: Acute (4) Leukocytosis Status: Acute (5) Low back pain Status: Acute (6) Sepsis Status: Acute Objective Vital Signs Date Time Temp Pulse Resp B/P (MAP) Pulse Ox O2 Delivery O2 Flow Rate FiO2 03/12/18 08:54 37.3 95 16 107/69 (82) 98 Nasal Cannula 2.0 03/12/18 08:27 36.9 68 16 96 03/12/18 08:00 36.9 68 16 137/56 (83) 96 Room Air 03/12/18 08:00 96 Room Air 03/12/18 07:12 74 18 96 Nasal Cannula 2.0 03/12/18 06:00 71 101/68 (79) 92 Nasal Cannula 1.0 03/12/18 05:00 68 103/64 (77) 91 Nasal Cannula 1.0 03/12/18 04:00 92 Nasal Cannula 1.0 03/12/18 04:00 36.8 69 106/63 (77) 91 Nasal Cannula 1.0 03/12/18 03:00 68 96/50 (65) 96 Nasal Cannula 1.0 03/12/18 02:00 70 98/67 (77) 96 Nasal Cannula 1.0 03/12/18 01:00 69 85/46 (59) 95 Nasal Cannula 1.0 03/12/18 00:00 36.6 68 16 96/54 (68) 95 Nasal Cannula 1.0 03/11/18 23:59 96 Nasal Cannula 1.0 03/11/18 23:00 71 84/57 (66) 95 Nasal Cannula 1.0 03/11/18 22:00 76 95/52 (66) 93 Nasal Cannula 1.0 03/11/18 21:01 79 99/53 (68) 94 Nasal Cannula 1.0 03/11/18 20:00 37.9 81 93/50 (64) 94 Nasal Cannula 1.0 03/11/18 20:00 Nasal Cannula 1.0 03/11/18 19:37 80 18 95 Nasal Cannula 2.0 03/11/18 19:30 72 102/51 (68) 95 03/11/18 17:01 75 109/58 (75) 96 1.0 03/11/18 16:00 Nasal Cannula 1.0 03/11/18 16:00 75 108/62 (77) 97 Nasal Cannula 1.0 03/11/18 15:00 36.5 73 98/58 (71) 96 Nasal Cannula 1.0 03/11/18 14:58 70 18 6 Nasal Cannula 2.0 03/11/18 13:00 36.2 74 85/43 (57) 94 Room Air 03/11/18 12:16 102/47 (65) 03/11/18 12:00 79 78/44 (55) 94 Nasal Cannula 2.0 03/11/18 12:00 Nasal Cannula 2.0 03/11/18 11:10 76 18 95 Nasal Cannula 2.0 Physical Exam General Appearance: WD/WN, no apparent distress Eyes: normal inspection, EOMI ENT: + pertinent finding (mmd) Neck: supple Respiratory/Chest: lungs clear, normal breath sounds, no respiratory distress, + decreased breath sounds Cardiovascular: regular rate, rhythm, no edema Abdomen: non tender, soft Extremities: non-tender, no pedal edema Neurologic/Psychiatric: alert, oriented x 3 Skin: normal color Laboratory Results Item Value Date Time Urine Culture - Preliminary Resulted 03/11/18 1130 Urine,Catheterized Gram Negative Bacilli Blood Culture - Preliminary Resulted 03/11/18 0951 Blood Gram Negative Bacilli Blood Culture - Preliminary Resulted 03/11/18 0940 Blood Gram Negative Bacilli Urine Culture - Preliminary Resulted 03/10/18 1655 Urine,Catheterized Citrobacter Freundii Complex Blood Culture - Preliminary Resulted 03/10/18 1113 Blood Gram Negative Bacilli Blood Culture - Preliminary Resulted 03/10/18 1047 Blood Gram Negative Bacilli Last 24 Hours Test 03/11/18 11:16 03/11/18 14:44 03/11/18 16:18 03/11/18 20:56 Bedside Glucose 124 mg/dl 120 mg/dl 123 mg/dl Hemoglobin 8.2 g/dL Hematocrit 25.2 % Lactic Acid Level 1.6 mmol/L Test 03/12/18 00:31 03/12/18 04:10 Bedside Glucose 139 mg/dl White Blood Count 11.71 K/uL Red Blood Count 3.02 M/uL Hemoglobin 8.6 g/dL Hematocrit 27.7 % Mean Corpuscular Volume 91.7 fL Mean Corpuscular Hemoglobin 28.5 pg Mean Corpuscular Hemoglobin Concent 31.0 g/dl Platelet Count 143 K/uL Mean Platelet Volume 9.3 fL Neutrophils (%) (Auto) 82.7 % Lymphocytes (%) (Auto) 9.6 % Monocytes (%) (Auto) 4.4 % Eosinophils (%) (Auto) 2.8 % Basophils (%) (Auto) 0.2 % Neutrophils # (Auto) 9.69 K/uL Lymphocytes # (Auto) 1.13 K/uL Monocytes # (Auto) 0.51 K/uL Eosinophils # (Auto) 0.33 K/uL Basophils # (Auto) 0.02 K/uL RDW Standard Deviation 56.1 fL RDW Coefficient of Variation 16.6 % Immature Granulocyte % (Auto) 0.3 % Immature Granulocyte # (Auto) 0.03 K/uL Hypochromasia PRESENT Prothrombin Time 19.0 SECONDS Prothromb Time International Ratio 1.8 Sodium Level 140 mmol/L Potassium Level 3.4 mmol/L Chloride Level 109 mmol/L Carbon Dioxide Level 26 mmol/L Anion Gap 5.0 mmol/L Blood Urea Nitrogen 20 mg/dl Creatinine 1.16 mg/dl Est Creatinine Clear Calc Drug Dose 30.9 ml/min Estimated GFR () 49.7 Estimated GFR (Non- 42.9 BUN/Creatinine Ratio 17.6 Random Glucose 90 mg/dl Calcium Level 7.6 mg/dl Phosphorus Level 2.3 mg/dl Magnesium Level 2.5 mg/dl Total Bilirubin 0.7 mg/dl Direct Bilirubin 0.2 mg/dl Aspartate Amino Transf (AST/SGOT) 68 U/L Alanine Aminotransferase (ALT/SGPT) 23 U/L Alkaline Phosphatase 73 U/L Total Protein 5.4 gm/dl Albumin 1.9 gm/dl Globulin 3.5 gm/dl Albumin/Globulin Ratio 0.5 Assessment and Plan (1) Gram negative septicemia Assessment & Plan: She has been transitioned to IV Levaquin certainly she could be on 500 milligram dose. Repeat blood cultures will be obtained today we will await the identification of gram-negative neo from her blood cultures (2) UTI (urinary tract infection)
--- NOTE | 2018-03-12 11:39 | Critical Care Progress Note ---
Critical Care Progress Note Date of Service March 12, 2018. ICU Day ICU Day Number: [address] Pagan Subjective Patient reports doing well this am. She says that her suprapubic pain has resolved. Patient is alert and oriented to person, place, but not time. She is tolerating regular diet this am. Patient denies CP, SOB, abdominal pain, n/v/d. Objective General; NAD, patient is comfortable HEENT; NC/AT, PERRL, EOMI, supple, NT CV; RRR, no m/r/g, [id number] Pulm; CTAB, no w/r/r, no accessory muscle use Abdomen; soft, nontender, nondistended, normal bowel sounds, mild suprapubic tenderness Extremities; No edema, no deformity Neuro; Alert and oriented to person and place, but not time Assessment & Plan 87 yo female being evaluated in the ICU for acute hypoxic resp failure in the setting of sepsis-- likely 2/2 ascending UTI in the setting of nephrolithiasis. PMH includes; HLD, HTN, Afib on coumadin , depression, GERD, SBO Assessment; Patient continues to do well today. She remains afebrile, her WBC and lactic acid continues to trend downward. Of note, urine cultures came back with additional species today--Citrobacter and Morganella--transitioned to Levaquin. INR 1.8 today Plan; -Transfer to medical floor -Transitioned to IV Levaquin -Repeating urine and blood cultures -Restarting Coumadin--3mg today and then continue her home dose of 1.5mg/day thereafter. Neuro -Acute encephalopathy 2/2 sepsis--patient is confused; oriented to person, and place, but not time. -Follow up with patients baseline -Depression--cont. citalopram, mirtazapine Cardiac -Patient hemodynamically stable -EKG showed NSR--decreased t wave amplitude -Echo today--EF 55-60%, normal LV function, no wall motion abnormalities -Cont. ASA, Lipitor Pulm -CXR--unremarkable for cardiopulm process -Patient 96% on 1L of O2--cont to wean -PT/OT orders placed GI -Cont PPI -Bowel regimen PRN--Miralax, milk of mag -Head of the bed>30 degrees -Diet--boost 1 can TID and PRN -Transaminitis--patient has elevated LFT's and low albumin--follow in the outpatient setting Renal/lytes -Post renal MEGHAN -Cr 2.13 on admission-->trending down 1.55 -K and Mg repleted--no other electrolyte abnormalities Endo -No documented history of DM -Sugars have been stable -Hypothyroid--TSH-1.2--cont. levothyroxine -Random cortisol--21.02 Heme -Anemia--Hgb 8.6, HCT 27.7---H/H stable today -INR-1.8, trending down following PO Vit K -Restart Coumadin today 3mg--then continue with 1.5 mg daily thereafter ID -LA is trended down--2.5-->1.8 -Ascending UTI/possible Pyelonephritis--UA--+LE, >30 WBC, 4+ bacteria -Transitioned to Levaquin -UCx--grew Citrobacter and Morganella -BCx--gram (-) bacilli -Repeat blood and urine cultures. Lines -PIV intact DVT ppx -Coumadin/SCD's Resuscitation status -Full code--will discuss with family Dr. Mckee was resident physician during care of patient. I separately evaluated patient and did history and exam. I discussed the case with the resident and generally agree with the findings and plan. Adjusting antibiotics to Levaquin that has a appropriate ADIN, changing antibiotics secondary to repeat culture also being positive for gram-negative rods. Patient hemodynamically stable, states she feels better than yesterday, tolerating diet this morning. There is a remote history of DVT in the patient' s history, I am not completely sure when this was however I have given the patient a one-time dose of Lovenox at 1 mg/kg based off of her current renal function, this will supply her anticoagulation for 24 hours. In the meantime I restarted 3 mg of Coumadin as her INR will likely be mildly resistant to warfarin given the recent 5 mg of vitamin K and then restarted or routine Coumadin dosing tomorrow evening. I have notified the hospitalist of this plan. Patient is stable for downgrade to medical unit, the patient is in normal sinus rhythm, and is anticoagulated. Data Medications: Current Inpatient Medications Medications (Trade) Dose Ordered Sig/Jamilah Route Start Time Stop Time Status Last Admin Dose Admin Atorvastatin Calcium (Lipitor Tab) 20 mg HS PO 03/10/18 21:00 04/09/18 20:59 03/11/18 20:51 20 MG Cholecalciferol (Vitamin D Tab) 2,000 inter.unit HS PO 03/10/18 21:00 04/09/18 20:59 03/11/18 20:52 2,000 INTER.UNIT Citalopram Hydrobromide (celeXA TAB) 20 mg DAILY PO 03/11/18 09:00 04/10/18 08:59 03/12/18 08:04 20 MG Gabapentin (Neurontin Cap) 100 mg HS PO 03/10/18 21:00 04/09/18 20:59 03/11/18 20:51 100 MG Levothyroxine Sodium (Synthroid Tab) 25 mcg DAILYBB PO 03/11/18 06:00 04/10/18 06:29 03/12/18 06:07 25 MCG Mirtazapine (Remeron Tab) 15 mg HS PO 03/10/18 21:00 04/09/18 20:59 03/11/18 20:51 15 MG Oxybutynin Chloride (Ditropan Tab) 5 mg BID PO 03/10/18 21:00 04/09/18 20:59 03/12/18 08:04 5 MG Pantoprazole Sodium (Protonix Tab) 40 mg DAILY PO 03/11/18 09:00 04/10/18 08:59 03/12/18 08:04 40 MG Acetaminophen (Tylenol Tab) 650 mg Q4H PRN PO 03/10/18 12:00 04/09/18 11:59 03/11/18 08:48 650 MG Al Hydrox/Mg Hydrox/Simethicone (Maalox Max Susp) 15 ml Q4H PRN PO 03/10/18 12:00 04/09/18 11:59 Magnesium Hydroxide (Milk Of Magnesia Susp) 30 ml Q12H PRN PO 03/10/18 12:00 04/09/18 11:59 Ondansetron HCl (Zofran Inj) 4 mg Q6H PRN IV 03/10/18 12:00 04/09/18 11:59 Nitroglycerin (Nitrostat Tab) 0.4 mg UD PRN SL 03/10/18 12:00 04/09/18 11:59 Polyethylene (Miralax Powder Packet) 17 gm DAILY PRN PO 03/10/18 12:00 04/09/18 11:59 Albuterol/ Ipratropium (Duoneb) 3 ml QIDR INH 03/10/18 16:00 04/09/18 15:59 03/12/18 11:12 3 ML Thiamine HCl (Vitamin B-1 Tab) 200 mg QAM PO 03/12/18 09:00 04/11/18 08:59 03/12/18 08:04 200 MG Enteral Nutritional Formula (Boost) 1 can TID PRN PO 03/11/18 10:15 04/10/18 10:14 Phenazopyridine HCl (Pyridium Tab) 100 mg TID PRN PO 03/11/18 12:00 04/10/18 11:59 03/11/18 14:23 100 MG Warfarin Sodium (Coumadin Tab) 1 mg DAILY@16 PO 03/13/18 16:00 04/12/18 15:59 Warfarin Sodium (Coumadin Tab) 0.5 mg DAILY@16 PO 03/13/18 16:00 04/12/18 15:59 Levofloxacin (Consult) 1 ea UD PRN N/A 03/12/18 09:15 04/11/18 09:14 Levofloxacin 750 mg/Prmx 150 ml @ 100 mls/hr Q2D@0900 IV 03/12/18 09:10 03/26/18 09:09 03/12/18 09:58 100 MLS/HR Vital Signs: Date Time Temp Pulse Resp B/P (MAP) Pulse Ox O2 Delivery O2 Flow Rate FiO2 03/12/18 08:54 37.3 95 16 107/69 (82) 98 Nasal Cannula 2.0 03/12/18 08:27 36.9 68 16 96 03/12/18 08:00 36.9 68 16 137/56 (83) 96 Room Air 03/12/18 08:00 96 Room Air 03/12/18 07:12 74 18 96 Nasal Cannula 2.0 03/12/18 06:00 71 101/68 (79) 92 Nasal Cannula 1.0 03/12/18 05:00 68 103/64 (77) 91 Nasal Cannula 1.0 03/12/18 04:00 92 Nasal Cannula 1.0 03/12/18 04:00 36.8 69 106/63 (77) 91 Nasal Cannula 1.0 03/12/18 03:00 68 96/50 (65) 96 Nasal Cannula 1.0 03/12/18 02:00 70 98/67 (77) 96 Nasal Cannula 1.0 03/12/18 01:00 69 85/46 (59) 95 Nasal Cannula 1.0 03/12/18 00:00 36.6 68 16 96/54 (68) 95 Nasal Cannula 1.0 03/11/18 23:59 96 Nasal Cannula 1.0 03/11/18 23:00 71 84/57 (66) 95 Nasal Cannula 1.0 03/11/18 22:00 76 95/52 (66) 93 Nasal Cannula 1.0 03/11/18 21:01 79 99/53 (68) 94 Nasal Cannula 1.0 03/11/18 20:00 37.9 81 93/50 (64) 94 Nasal Cannula 1.0 03/11/18 20:00 Nasal Cannula 1.0 03/11/18 19:37 80 18 95 Nasal Cannula 2.0 03/11/18 19:30 72 102/51 (68) 95 03/11/18 17:01 75 109/58 (75) 96 1.0 03/11/18 16:00 Nasal Cannula 1.0 03/11/18 16:00 75 108/62 (77) 97 Nasal Cannula 1.0 03/11/18 15:00 36.5 73 98/58 (71) 96 Nasal Cannula 1.0 03/11/18 14:58 70 18 6 Nasal Cannula 2.0 03/11/18 13:00 36.2 74 85/43 (57) 94 Room Air 03/11/18 12:16 102/47 (65) 03/11/18 12:00 79 78/44 (55) 94 Nasal Cannula 2.0 03/11/18 12:00 Nasal Cannula 2.0 Laboratory Results: Last 24 Hours Test 03/11/18 14:44 03/11/18 16:18 03/11/18 20:56 03/12/18 00:31 Hemoglobin 8.2 g/dL Hematocrit 25.2 % Lactic Acid Level 1.6 mmol/L Bedside Glucose 120 mg/dl 123 mg/dl 139 mg/dl Test 03/12/18 04:10 White Blood Count 11.71 K/uL Red Blood Count 3.02 M/uL Hemoglobin 8.6 g/dL Hematocrit 27.7 % Mean Corpuscular Volume 91.7 fL Mean Corpuscular Hemoglobin 28.5 pg Mean Corpuscular Hemoglobin Concent 31.0 g/dl Platelet Count 143 K/uL Mean Platelet Volume 9.3 fL Neutrophils (%) (Auto) 82.7 % Lymphocytes (%) (Auto) 9.6 % Monocytes (%) (Auto) 4.4 % Eosinophils (%) (Auto) 2.8 % Basophils (%) (Auto) 0.2 % Neutrophils # (Auto) 9.69 K/uL Lymphocytes # (Auto) 1.13 K/uL Monocytes # (Auto) 0.51 K/uL Eosinophils # (Auto) 0.33 K/uL Basophils # (Auto) 0.02 K/uL RDW Standard Deviation 56.1 fL RDW Coefficient of Variation 16.6 % Immature Granulocyte % (Auto) 0.3 % Immature Granulocyte # (Auto) 0.03 K/uL Hypochromasia PRESENT Prothrombin Time 19.0 SECONDS Prothromb Time International Ratio 1.8 Sodium Level 140 mmol/L Potassium Level 3.4 mmol/L Chloride Level 109 mmol/L Carbon Dioxide Level 26 mmol/L Anion Gap 5.0 mmol/L Blood Urea Nitrogen 20 mg/dl Creatinine 1.16 mg/dl Est Creatinine Clear Calc Drug Dose 30.9 ml/min Estimated GFR () 49.7 Estimated GFR (Non- 42.9 BUN/Creatinine Ratio 17.6 Random Glucose 90 mg/dl Calcium Level 7.6 mg/dl Phosphorus Level 2.3 mg/dl Magnesium Level 2.5 mg/dl Total Bilirubin 0.7 mg/dl Direct Bilirubin 0.2 mg/dl Aspartate Amino Transf (AST/SGOT) 68 U/L Alanine Aminotransferase (ALT/SGPT) 23 U/L Alkaline Phosphatase 73 U/L Total Protein 5.4 gm/dl Albumin 1.9 gm/dl Globulin 3.5 gm/dl Albumin/Globulin Ratio 0.5
--- NOTE | 2018-03-12 15:28 | Progress Note ---
Subjective Date of Service: March 12, 2018. Subjective Pt evaluation today including: conversation w/ patient, physical exam, lab review, review of studies, review of inpatient medication list Saw/examined the patient in room 250 She feels much better, no fevers/chills, no weakness Flank pain resolved No urinary symptoms Problem List Medical Problems: (1) Abdominal pain Status: Acute (2) Bowel obstruction Status: Acute (3) Gastroenteritis Status: Acute (4) Leukocytosis Status: Acute (5) Low back pain Status: Acute (6) Sepsis Status: Acute Review of Systems Constitutional: + weakness, No fever, No chills Respiratory: No cough, No sputum, No shortness of breath Cardiac: No chest pain, No edema, No palpitations Abdomen: No pain, No nausea, No vomiting, No diarrhea, No constipation, No GI bleeding Female : No dysuria, No urinary frequency, No hematuria Heme: No abnormal bleeding/bruising Medications Current Inpatient Medications Medications (Trade) Dose Ordered Sig/Jamilah Route Start Time Stop Time Status Last Admin Dose Admin Atorvastatin Calcium (Lipitor Tab) 20 mg HS PO 03/10/18 21:00 04/09/18 20:59 03/11/18 20:51 20 MG Cholecalciferol (Vitamin D Tab) 2,000 inter.unit HS PO 03/10/18 21:00 04/09/18 20:59 03/11/18 20:52 2,000 INTER.UNIT Citalopram Hydrobromide (celeXA TAB) 20 mg DAILY PO 03/11/18 09:00 04/10/18 08:59 03/12/18 08:04 20 MG Gabapentin (Neurontin Cap) 100 mg HS PO 03/10/18 21:00 04/09/18 20:59 03/11/18 20:51 100 MG Levothyroxine Sodium (Synthroid Tab) 25 mcg DAILYBB PO 03/11/18 06:00 04/10/18 06:29 03/12/18 06:07 25 MCG Mirtazapine (Remeron Tab) 15 mg HS PO 03/10/18 21:00 04/09/18 20:59 03/11/18 20:51 15 MG Oxybutynin Chloride (Ditropan Tab) 5 mg BID PO 03/10/18 21:00 04/09/18 20:59 03/12/18 08:04 5 MG Pantoprazole Sodium (Protonix Tab) 40 mg DAILY PO 03/11/18 09:00 04/10/18 08:59 03/12/18 08:04 40 MG Acetaminophen (Tylenol Tab) 650 mg Q4H PRN PO 03/10/18 12:00 04/09/18 11:59 03/11/18 08:48 650 MG Al Hydrox/Mg Hydrox/Simethicone (Maalox Max Susp) 15 ml Q4H PRN PO 03/10/18 12:00 04/09/18 11:59 Magnesium Hydroxide (Milk Of Magnesia Susp) 30 ml Q12H PRN PO 03/10/18 12:00 04/09/18 11:59 Ondansetron HCl (Zofran Inj) 4 mg Q6H PRN IV 03/10/18 12:00 04/09/18 11:59 Nitroglycerin (Nitrostat Tab) 0.4 mg UD PRN SL 03/10/18 12:00 04/09/18 11:59 Polyethylene (Miralax Powder Packet) 17 gm DAILY PRN PO 03/10/18 12:00 04/09/18 11:59 Albuterol/ Ipratropium (Duoneb) 3 ml QIDR INH 03/10/18 16:00 04/09/18 15:59 03/12/18 15:12 3 ML Thiamine HCl (Vitamin B-1 Tab) 200 mg QAM PO 03/12/18 09:00 04/11/18 08:59 03/12/18 08:04 200 MG Enteral Nutritional Formula (Boost) 1 can TID PRN PO 03/11/18 10:15 04/10/18 10:14 Phenazopyridine HCl (Pyridium Tab) 100 mg TID PRN PO 03/11/18 12:00 04/10/18 11:59 03/11/18 14:23 100 MG Warfarin Sodium (Coumadin Tab) 1 mg DAILY@16 PO 03/13/18 16:00 04/12/18 15:59 Warfarin Sodium (Coumadin Tab) 0.5 mg DAILY@16 PO 03/13/18 16:00 04/12/18 15:59 Levofloxacin (Consult) 1 ea UD PRN N/A 03/12/18 09:15 04/11/18 09:14 Levofloxacin 750 mg/Prmx 150 ml @ 100 mls/hr Q2D@0900 IV 03/12/18 09:10 03/26/18 09:09 03/12/18 09:58 100 MLS/HR Objective Vital Signs Date Time Temp Pulse Resp B/P (MAP) Pulse Ox O2 Delivery O2 Flow Rate FiO2 03/12/18 15:12 82 18 96 Nasal Cannula 2.0 03/12/18 11:22 81 18 97 Nasal Cannula 2.0 03/12/18 08:54 37.3 95 16 107/69 (82) 98 Nasal Cannula 2.0 03/12/18 08:27 36.9 68 16 96 03/12/18 08:00 36.9 68 16 137/56 (83) 96 Room Air 03/12/18 08:00 96 Room Air 03/12/18 07:12 74 18 96 Nasal Cannula 2.0 03/12/18 06:00 71 101/68 (79) 92 Nasal Cannula 1.0 03/12/18 05:00 68 103/64 (77) 91 Nasal Cannula 1.0 03/12/18 04:00 92 Nasal Cannula 1.0 03/12/18 04:00 36.8 69 106/63 (77) 91 Nasal Cannula 1.0 03/12/18 03:00 68 96/50 (65) 96 Nasal Cannula 1.0 03/12/18 02:00 70 98/67 (77) 96 Nasal Cannula 1.0 03/12/18 01:00 69 85/46 (59) 95 Nasal Cannula 1.0 03/12/18 00:00 36.6 68 16 96/54 (68) 95 Nasal Cannula 1.0 03/11/18 23:59 96 Nasal Cannula 1.0 03/11/18 23:00 71 84/57 (66) 95 Nasal Cannula 1.0 03/11/18 22:00 76 95/52 (66) 93 Nasal Cannula 1.0 03/11/18 21:01 79 99/53 (68) 94 Nasal Cannula 1.0 03/11/18 20:00 37.9 81 93/50 (64) 94 Nasal Cannula 1.0 03/11/18 20:00 Nasal Cannula 1.0 03/11/18 19:37 80 18 95 Nasal Cannula 2.0 03/11/18 19:30 72 102/51 (68) 95 03/11/18 17:01 75 109/58 (75) 96 1.0 03/11/18 16:00 Nasal Cannula 1.0 03/11/18 16:00 75 108/62 (77) 97 Nasal Cannula 1.0 Physical Exam General Appearance: WD/WN, no apparent distress Respiratory/Chest: chest non-tender, lungs clear, normal breath sounds, no respiratory distress, no accessory muscle use Cardiovascular: regular rate, rhythm, no edema, no murmur Abdomen: normal bowel sounds, non tender, soft Extremities: normal inspection, no pedal edema Neurologic/Psychiatric: no motor/sensory deficits, alert, normal mood/affect Skin: normal color Laboratory Results Last 24 Hours Test 03/11/18 16:18 03/11/18 20:56 03/12/18 00:31 03/12/18 04:10 Bedside Glucose 120 mg/dl 123 mg/dl 139 mg/dl White Blood Count 11.71 K/uL Red Blood Count 3.02 M/uL Hemoglobin 8.6 g/dL Hematocrit 27.7 % Mean Corpuscular Volume 91.7 fL Mean Corpuscular Hemoglobin 28.5 pg Mean Corpuscular Hemoglobin Concent 31.0 g/dl Platelet Count 143 K/uL Mean Platelet Volume 9.3 fL Neutrophils (%) (Auto) 82.7 % Lymphocytes (%) (Auto) 9.6 % Monocytes (%) (Auto) 4.4 % Eosinophils (%) (Auto) 2.8 % Basophils (%) (Auto) 0.2 % Neutrophils # (Auto) 9.69 K/uL Lymphocytes # (Auto) 1.13 K/uL Monocytes # (Auto) 0.51 K/uL Eosinophils # (Auto) 0.33 K/uL Basophils # (Auto) 0.02 K/uL RDW Standard Deviation 56.1 fL RDW Coefficient of Variation 16.6 % Immature Granulocyte % (Auto) 0.3 % Immature Granulocyte # (Auto) 0.03 K/uL Hypochromasia PRESENT Prothrombin Time 19.0 SECONDS Prothromb Time International Ratio 1.8 Sodium Level 140 mmol/L Potassium Level 3.4 mmol/L Chloride Level 109 mmol/L Carbon Dioxide Level 26 mmol/L Anion Gap 5.0 mmol/L Blood Urea Nitrogen 20 mg/dl Creatinine 1.16 mg/dl Est Creatinine Clear Calc Drug Dose 30.9 ml/min Estimated GFR () 49.7 Estimated GFR (Non- 42.9 BUN/Creatinine Ratio 17.6 Random Glucose 90 mg/dl Calcium Level 7.6 mg/dl Phosphorus Level 2.3 mg/dl Magnesium Level 2.5 mg/dl Total Bilirubin 0.7 mg/dl Direct Bilirubin 0.2 mg/dl Aspartate Amino Transf (AST/SGOT) 68 U/L Alanine Aminotransferase (ALT/SGPT) 23 U/L Alkaline Phosphatase 73 U/L Total Protein 5.4 gm/dl Albumin 1.9 gm/dl Globulin 3.5 gm/dl Albumin/Globulin Ratio 0.5 Assessment and Plan This is an 87 year old female with a 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 of paroxysmal atrial fibrillation, CAD and hx. 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 - continue broad spectrum antibiotics - added Levaquin as per ID to cover urine culture/blood cultures - repeat blood cultures are also positive - will need to obtain further cultures, appreciate ID/urology input - creatinine improved and IV fluid stopped 03/11 - 6mm obstructing stone noted on the L ureter - patient septic with white count elevation, lactic acidosis on admission - blood cultures positive x2 - gram negative bacilli - urine culture positive for gram negative bacilli as well - s/p stenting; currently IV Zosyn - appreciate urology and ID input - creatinine on admission >2, giving IV fluids with improvement - creatinine trending down, WBC trending down, lactic acid < 2 Hx. of DVT and Paroxysmal A. Fib 03/12 - adding subq heparin to Coumadin - monitor INR with goal of 2-3 03/11 - on Coumadin - supratherapeutic INR on admission - now improving Anemia - improving - unsure of underlying cause, hematuria from obstructing stone? kidney injury? - monitor H/H - monitor INR, hold Coumadin until INR therapeutic - if no improvement, will check iron panel, B12, folate CAD hx. of NSTEMI - continue statin - restart b-tayler once blood pressure improves DVT ppx - subq heparin started - Coumadin DNR/DNI
--- NOTE | 2018-03-12 19:40 | Progress Note ---
Subjective Date of Service: March 12, 2018. Subjective Pt evaluation today including: conversation w/ patient, physical exam, chart review, lab review pt alert but complaining of r hip pain new today Still weak Problem List Medical Problems: (1) Abdominal pain Status: Acute (2) Bowel obstruction Status: Acute (3) Gastroenteritis Status: Acute (4) Leukocytosis Status: Acute (5) Low back pain Status: Acute (6) Sepsis Status: Acute Objective Vital Signs Date Time Temp Pulse Resp B/P (MAP) Pulse Ox O2 Delivery O2 Flow Rate FiO2 03/12/18 16:00 94 Room Air 03/12/18 15:18 36.7 88 16 131/76 (94) 95 Room Air 03/12/18 15:12 82 18 96 Nasal Cannula 2.0 03/12/18 11:22 81 18 97 Nasal Cannula 2.0 03/12/18 08:54 37.3 95 16 107/69 (82) 98 Nasal Cannula 2.0 03/12/18 08:27 36.9 68 16 96 03/12/18 08:00 36.9 68 16 137/56 (83) 96 Room Air 03/12/18 08:00 96 Room Air 03/12/18 07:12 74 18 96 Nasal Cannula 2.0 03/12/18 06:00 71 101/68 (79) 92 Nasal Cannula 1.0 03/12/18 05:00 68 103/64 (77) 91 Nasal Cannula 1.0 03/12/18 04:00 92 Nasal Cannula 1.0 03/12/18 04:00 36.8 69 106/63 (77) 91 Nasal Cannula 1.0 03/12/18 03:00 68 96/50 (65) 96 Nasal Cannula 1.0 03/12/18 02:00 70 98/67 (77) 96 Nasal Cannula 1.0 03/12/18 01:00 69 85/46 (59) 95 Nasal Cannula 1.0 03/12/18 00:00 36.6 68 16 96/54 (68) 95 Nasal Cannula 1.0 03/11/18 23:59 96 Nasal Cannula 1.0 03/11/18 23:00 71 84/57 (66) 95 Nasal Cannula 1.0 03/11/18 22:00 76 95/52 (66) 93 Nasal Cannula 1.0 03/11/18 21:01 79 99/53 (68) 94 Nasal Cannula 1.0 03/11/18 20:00 37.9 81 93/50 (64) 94 Nasal Cannula 1.0 03/11/18 20:00 Nasal Cannula 1.0 Laboratory Results Last 24 Hours Test 03/11/18 20:56 03/12/18 00:31 03/12/18 04:10 Bedside Glucose 123 mg/dl 139 mg/dl White Blood Count 11.71 K/uL Red Blood Count 3.02 M/uL Hemoglobin 8.6 g/dL Hematocrit 27.7 % Mean Corpuscular Volume 91.7 fL Mean Corpuscular Hemoglobin 28.5 pg Mean Corpuscular Hemoglobin Concent 31.0 g/dl Platelet Count 143 K/uL Mean Platelet Volume 9.3 fL Neutrophils (%) (Auto) 82.7 % Lymphocytes (%) (Auto) 9.6 % Monocytes (%) (Auto) 4.4 % Eosinophils (%) (Auto) 2.8 % Basophils (%) (Auto) 0.2 % Neutrophils # (Auto) 9.69 K/uL Lymphocytes # (Auto) 1.13 K/uL Monocytes # (Auto) 0.51 K/uL Eosinophils # (Auto) 0.33 K/uL Basophils # (Auto) 0.02 K/uL RDW Standard Deviation 56.1 fL RDW Coefficient of Variation 16.6 % Immature Granulocyte % (Auto) 0.3 % Immature Granulocyte # (Auto) 0.03 K/uL Hypochromasia PRESENT Prothrombin Time 19.0 SECONDS Prothromb Time International Ratio 1.8 Sodium Level 140 mmol/L Potassium Level 3.4 mmol/L Chloride Level 109 mmol/L Carbon Dioxide Level 26 mmol/L Anion Gap 5.0 mmol/L Blood Urea Nitrogen 20 mg/dl Creatinine 1.16 mg/dl Est Creatinine Clear Calc Drug Dose 30.9 ml/min Estimated GFR () 49.7 Estimated GFR (Non- 42.9 BUN/Creatinine Ratio 17.6 Random Glucose 90 mg/dl Calcium Level 7.6 mg/dl Phosphorus Level 2.3 mg/dl Magnesium Level 2.5 mg/dl Total Bilirubin 0.7 mg/dl Direct Bilirubin 0.2 mg/dl Aspartate Amino Transf (AST/SGOT) 68 U/L Alanine Aminotransferase (ALT/SGPT) 23 U/L Alkaline Phosphatase 73 U/L Total Protein 5.4 gm/dl Albumin 1.9 gm/dl Globulin 3.5 gm/dl Albumin/Globulin Ratio 0.5 Assessment and Plan if hip pain persists consider ortho consult will need 2 weeks of antibiotics and f/u w Dr. Pittman for possible eswl
[2018-03-12] MEDS: ATORVASTATIN 20 MG TAB PO SCH (21:02)
[2018-03-12] MEDS: GABAPENTIN 100 MG CAP PO SCH (21:02)
[2018-03-12] MEDS: CHOLECALCIFEROL 1000 INTER.UNIT TAB PO SCH (21:03)
[2018-03-12] MEDS: MIRTAZAPINE TAB 15 MG TAB PO SCH (21:03)
[2018-03-12] MEDS: ACETAMINOPHEN 325 MG TAB PO PRN (21:07)
[2018-03-13] MEDS: LEVOTHYROXINE 25 MCG TAB PO SCH (05:39)
[2018-03-13 06:09] LABS: BASO % 0.3 %; BASO ABS # 0.02 K/uL (0-0.2); EOS % 4.2 %; EOS ABS # 0.29 K/uL (0-0.5); HEMATOCRIT 25.3 % (37-47); HEMOGLOBIN 8.1 g/dL (12.0-16.0); IG# 0.05 K/uL (0.00-0.02); LYMPH % 17.9 %; LYMPH ABS # 1.23 K/uL (1.2-3.4); MEAN CELL VOLUME 92.7 fL (80-100); MEAN CORPUSCULAR HEMOGLOBIN 29.7 pg (25-34); MEAN PLATELET VOLUME 9.1 fL (7.4-10.4); MONO % 7.9 %; MONO ABS # 0.54 K/uL (0.11-0.59); NEUT ABS # 4.74 K/uL (1.4-6.5); PLATELET COUNT 138 K/uL (130-400); RED CELL DISTRIBUTION WIDTH CV 16.5 % (11.5-14.5); WHITE BLOOD COUNT 6.87 K/uL (4.8-10.8)
[2018-03-13 06:55] VITALS: PULSE 86; O2SAT 94
[2018-03-13] MEDS: ALBUT/IPRATROP 3MG/0.5MG NEB 3 ML VIAL INH SCH (06:55)
[2018-03-13 07:13] LABS: ALBUMIN 1.8 gm/dl (3.4-5.0); CREATININE 0.93 mg/dl (0.60-1.20); PHOSPHORUS 3.1 mg/dl (2.5-4.9); POTASSIUM 4.3 mmol/L (3.5-5.1); TOTAL PROTEIN 5.3 gm/dl (6.4-8.2)
[2018-03-13 07:24] VITALS: BP 93/54; PULSE 74; TEMP 36.8; O2SAT 100
[2018-03-13] MEDS: THIAMINE HCL 100 MG TAB PO SCH (08:54)
[2018-03-13] MEDS: ACETAMINOPHEN 325 MG TAB PO PRN (08:54)
[2018-03-13] MEDS: CITALOPRAM 20 MG TAB PO SCH (08:54)
[2018-03-13] MEDS: PANTOprazole SOD 40 MG TAB PO SCH (08:54)
[2018-03-13] MEDS: OXYBUTYNIN CHLORIDE 5 MG TAB PO SCH ×2 (08:54→20:42)
[2018-03-13] MEDS ORDERED: ALBUT/IPRATROP 3MG/0.5MG NEB 3 ML VIAL INH PRN (09:15)
--- NOTE | 2018-03-13 10:16 | Progress Note ---
Subjective Date of Service: March 13, 2018. Subjective Pt evaluation today including: conversation w/ patient, physical exam, chart review, lab review pt seen in followup, doing well. remains confused but more alert. afebrile. blood culture 03/12 pending. initial blood cultures with citrobacter as well. sensitive to levaquin. states she is not hungry, did not eat breakfast but denies abd pain. no f/c. cp, sob, n/v/d. all remaining ros reviewed and are negative. Problem List Medical Problems: (1) Abdominal pain Status: Acute (2) Bowel obstruction Status: Acute (3) Gastroenteritis Status: Acute (4) Leukocytosis Status: Acute (5) Low back pain Status: Acute (6) Sepsis Status: Acute Objective Vital Signs Date Time Temp Pulse Resp B/P (MAP) Pulse Ox O2 Delivery O2 Flow Rate FiO2 03/13/18 07:24 36.8 74 20 93/54 (67) 100 03/13/18 06:55 86 18 94 Room Air 03/12/18 23:59 Nasal Cannula 2.0 03/12/18 22:45 37.3 89 18 116/67 (83) 95 Room Air 03/12/18 19:41 89 18 95 Room Air 03/12/18 16:00 94 Room Air 03/12/18 15:18 36.7 88 16 131/76 (94) 95 Room Air 03/12/18 15:12 82 18 96 Nasal Cannula 2.0 03/12/18 11:22 81 18 97 Nasal Cannula 2.0 Physical Exam General Appearance: WD/WN, no apparent distress Eyes: normal inspection, EOMI Neck: supple Respiratory/Chest: lungs clear, normal breath sounds, no respiratory distress Cardiovascular: regular rate, rhythm, no edema Abdomen: non tender, soft Extremities: non-tender, no pedal edema Neurologic/Psychiatric: alert, oriented x 3 Skin: normal color Laboratory Results Item Value Date Time Urine Culture - Preliminary Resulted 03/11/18 1130 Urine,Catheterized Citrobacter Freundii Complex Blood Culture - Preliminary Resulted 03/11/18 0951 Blood Gram Negative Bacilli Blood Culture - Preliminary Resulted 03/11/18 0940 Blood Gram Negative Bacilli Urine Culture - Final Complete 03/10/18 1655 Urine,Catheterized Citrobacter Freundii Complex Blood Culture - Final Complete 03/10/18 1113 Blood Citrobacter Freundii Complex Blood Culture - Final Complete 03/10/18 1047 Blood Citrobacter Freundii Complex Last 24 Hours Test 03/13/18 05:51 White Blood Count 6.87 K/uL Red Blood Count 2.73 M/uL Hemoglobin 8.1 g/dL Hematocrit 25.3 % Mean Corpuscular Volume 92.7 fL Mean Corpuscular Hemoglobin 29.7 pg Mean Corpuscular Hemoglobin Concent 32.0 g/dl Platelet Count 138 K/uL Mean Platelet Volume 9.1 fL Neutrophils (%) (Auto) 69.0 % Lymphocytes (%) (Auto) 17.9 % Monocytes (%) (Auto) 7.9 % Eosinophils (%) (Auto) 4.2 % Basophils (%) (Auto) 0.3 % Neutrophils # (Auto) 4.74 K/uL Lymphocytes # (Auto) 1.23 K/uL Monocytes # (Auto) 0.54 K/uL Eosinophils # (Auto) 0.29 K/uL Basophils # (Auto) 0.02 K/uL RDW Standard Deviation 56.0 fL RDW Coefficient of Variation 16.5 % Immature Granulocyte % (Auto) 0.7 % Immature Granulocyte # (Auto) 0.05 K/uL Red Blood Cell Morphology Unremarkable Prothrombin Time 21.2 SECONDS Prothromb Time International Ratio 2.0 Sodium Level 145 mmol/L Potassium Level 4.3 mmol/L Chloride Level 114 mmol/L Carbon Dioxide Level 26 mmol/L Anion Gap 5.0 mmol/L Blood Urea Nitrogen 11 mg/dl Creatinine 0.93 mg/dl Est Creatinine Clear Calc Drug Dose 39.1 ml/min Estimated GFR () 65.0 Estimated GFR (Non- 56.0 BUN/Creatinine Ratio 11.6 Random Glucose 77 mg/dl Calcium Level 8.0 mg/dl Phosphorus Level 3.1 mg/dl Magnesium Level 2.2 mg/dl Total Bilirubin 0.5 mg/dl Aspartate Amino Transf (AST/SGOT) 51 U/L Alanine Aminotransferase (ALT/SGPT) 28 U/L Alkaline Phosphatase 69 U/L Total Protein 5.3 gm/dl Albumin 1.8 gm/dl Globulin 3.5 gm/dl Albumin/Globulin Ratio 0.5 Assessment and Plan (1) Gram negative septicemia Assessment & Plan: continue levaquin, maintain IV for now as po intake poor. will need 14 days from first negative culture, can change to levaquin 500mg po daily when eating full diet. (2) UTI (urinary tract infection)
[2018-03-13 14:38] VITALS: BP 136/76; PULSE 77; TEMP 36.7; O2SAT 93
[2018-03-13 16:00] VITALS: O2SAT 93
[2018-03-13] MEDS: WARFARIN SOD 1 MG TAB PO SCH (16:21)
[2018-03-13] MEDS: WARFARIN SOD 0.5 MG TAB PO SCH (16:22)
--- NOTE | 2018-03-13 18:26 | Progress Note ---
Subjective Date of Service: March 13, 2018. Subjective Pt evaluation today including: conversation w/ patient, physical exam, lab review, review of studies, review of inpatient medication list Saw/examined the patient in room 250 No problems/issues at this time She is feeling fine Problem List Medical Problems: (1) Abdominal pain Status: Acute (2) Bowel obstruction Status: Acute (3) Gastroenteritis Status: Acute (4) Leukocytosis Status: Acute (5) Low back pain Status: Acute (6) Sepsis Status: Acute Review of Systems Constitutional: + weakness, No fever, No chills Respiratory: No shortness of breath Cardiac: No chest pain Abdomen: No pain, No nausea, No vomiting, No diarrhea Medications Current Inpatient Medications Medications (Trade) Dose Ordered Sig/Jamilah Route Start Time Stop Time Status Last Admin Dose Admin Atorvastatin Calcium (Lipitor Tab) 20 mg HS PO 03/10/18 21:00 04/09/18 20:59 03/12/18 21:02 20 MG Cholecalciferol (Vitamin D Tab) 2,000 inter.unit HS PO 03/10/18 21:00 04/09/18 20:59 03/12/18 21:03 2,000 INTER.UNIT Citalopram Hydrobromide (celeXA TAB) 20 mg DAILY PO 03/11/18 09:00 04/10/18 08:59 03/13/18 08:54 20 MG Gabapentin (Neurontin Cap) 100 mg HS PO 03/10/18 21:00 04/09/18 20:59 03/12/18 21:02 100 MG Levothyroxine Sodium (Synthroid Tab) 25 mcg DAILYBB PO 03/11/18 06:00 04/10/18 06:29 03/13/18 05:39 25 MCG Mirtazapine (Remeron Tab) 15 mg HS PO 03/10/18 21:00 04/09/18 20:59 03/12/18 21:03 15 MG Oxybutynin Chloride (Ditropan Tab) 5 mg BID PO 03/10/18 21:00 04/09/18 20:59 03/13/18 08:54 5 MG Pantoprazole Sodium (Protonix Tab) 40 mg DAILY PO 03/11/18 09:00 04/10/18 08:59 03/13/18 08:54 40 MG Acetaminophen (Tylenol Tab) 650 mg Q4H PRN PO 03/10/18 12:00 04/09/18 11:59 03/13/18 08:54 650 MG Al Hydrox/Mg Hydrox/Simethicone (Maalox Max Susp) 15 ml Q4H PRN PO 03/10/18 12:00 04/09/18 11:59 Magnesium Hydroxide (Milk Of Magnesia Susp) 30 ml Q12H PRN PO 03/10/18 12:00 04/09/18 11:59 Ondansetron HCl (Zofran Inj) 4 mg Q6H PRN IV 03/10/18 12:00 04/09/18 11:59 Nitroglycerin (Nitrostat Tab) 0.4 mg UD PRN SL 03/10/18 12:00 04/09/18 11:59 Polyethylene (Miralax Powder Packet) 17 gm DAILY PRN PO 03/10/18 12:00 04/09/18 11:59 03/13/18 16:20 17 GM Thiamine HCl (Vitamin B-1 Tab) 200 mg QAM PO 03/12/18 09:00 04/11/18 08:59 03/13/18 08:54 200 MG Enteral Nutritional Formula (Boost) 1 can TID PRN PO 03/11/18 10:15 04/10/18 10:14 Phenazopyridine HCl (Pyridium Tab) 100 mg TID PRN PO 03/11/18 12:00 04/10/18 11:59 03/11/18 14:23 100 MG Warfarin Sodium (Coumadin Tab) 1 mg DAILY@16 PO 03/13/18 16:00 04/12/18 15:59 03/13/18 16:21 1 MG Warfarin Sodium (Coumadin Tab) 0.5 mg DAILY@16 PO 03/13/18 16:00 04/12/18 15:59 03/13/18 16:22 0.5 MG Levofloxacin (Consult) 1 ea UD PRN N/A 03/12/18 09:15 04/11/18 09:14 Levofloxacin 750 mg/Prmx 150 ml @ 100 mls/hr Q2D@0900 IV 03/12/18 09:10 03/26/18 09:09 03/12/18 09:58 100 MLS/HR Albuterol/ Ipratropium (Duoneb) 3 ml Q4R PRN INH 03/13/18 09:15 04/12/18 09:14 Objective Vital Signs Date Time Temp Pulse Resp B/P (MAP) Pulse Ox O2 Delivery O2 Flow Rate FiO2 03/13/18 14:38 36.7 77 20 136/76 (96) 93 03/13/18 08:00 Room Air 03/13/18 07:24 36.8 74 20 93/54 (67) 100 03/13/18 06:55 86 18 94 Room Air 03/12/18 23:59 Nasal Cannula 2.0 03/12/18 22:45 37.3 89 18 116/67 (83) 95 Room Air 03/12/18 19:41 89 18 95 Room Air Physical Exam General Appearance: no apparent distress Respiratory/Chest: lungs clear, normal breath sounds, no respiratory distress, no accessory muscle use Cardiovascular: regular rate, rhythm, no edema, no murmur Extremities: normal inspection, no pedal edema Laboratory Results Last 24 Hours Test 03/13/18 05:51 White Blood Count 6.87 K/uL Red Blood Count 2.73 M/uL Hemoglobin 8.1 g/dL Hematocrit 25.3 % Mean Corpuscular Volume 92.7 fL Mean Corpuscular Hemoglobin 29.7 pg Mean Corpuscular Hemoglobin Concent 32.0 g/dl Platelet Count 138 K/uL Mean Platelet Volume 9.1 fL Neutrophils (%) (Auto) 69.0 % Lymphocytes (%) (Auto) 17.9 % Monocytes (%) (Auto) 7.9 % Eosinophils (%) (Auto) 4.2 % Basophils (%) (Auto) 0.3 % Neutrophils # (Auto) 4.74 K/uL Lymphocytes # (Auto) 1.23 K/uL Monocytes # (Auto) 0.54 K/uL Eosinophils # (Auto) 0.29 K/uL Basophils # (Auto) 0.02 K/uL RDW Standard Deviation 56.0 fL RDW Coefficient of Variation 16.5 % Immature Granulocyte % (Auto) 0.7 % Immature Granulocyte # (Auto) 0.05 K/uL Red Blood Cell Morphology Unremarkable Prothrombin Time 21.2 SECONDS Prothromb Time International Ratio 2.0 Sodium Level 145 mmol/L Potassium Level 4.3 mmol/L Chloride Level 114 mmol/L Carbon Dioxide Level 26 mmol/L Anion Gap 5.0 mmol/L Blood Urea Nitrogen 11 mg/dl Creatinine 0.93 mg/dl Est Creatinine Clear Calc Drug Dose 39.1 ml/min Estimated GFR () 65.0 Estimated GFR (Non- 56.0 BUN/Creatinine Ratio 11.6 Random Glucose 77 mg/dl Calcium Level 8.0 mg/dl Phosphorus Level 3.1 mg/dl Magnesium Level 2.2 mg/dl Total Bilirubin 0.5 mg/dl Aspartate Amino Transf (AST/SGOT) 51 U/L Alanine Aminotransferase (ALT/SGPT) 28 U/L Alkaline Phosphatase 69 U/L Total Protein 5.3 gm/dl Albumin 1.8 gm/dl Globulin 3.5 gm/dl Albumin/Globulin Ratio 0.5 Assessment and Plan This is an 87 year old female with a 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 of paroxysmal atrial fibrillation, CAD and hx. 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 - continue broad spectrum antibiotics - added Levaquin as per ID to cover urine culture/blood cultures - repeat blood cultures are also positive - will need to obtain further cultures, appreciate ID/urology input - creatinine improved and IV fluid stopped 03/11 - 6mm obstructing stone noted on the L ureter - patient septic with white count elevation, lactic acidosis on admission - blood cultures positive x2 - gram negative bacilli - urine culture positive for gram negative bacilli as well - s/p stenting; currently IV Zosyn - appreciate urology and ID input - creatinine on admission >2, giving IV fluids with improvement - creatinine trending down, WBC trending down, lactic acid < 2 Hx. of DVT and Paroxysmal A. Fib 03/13 - Coumadin, goal INR of 2-3 03/12 - adding subq heparin to Coumadin - monitor INR with goal of 2-3 03/11 - on Coumadin - supratherapeutic INR on admission - now improving Anemia - improving - unsure of underlying cause, hematuria from obstructing stone? kidney injury? - monitor H/H - monitor INR, hold Coumadin until INR therapeutic - if no improvement, will check iron panel, B12, folate CAD hx. of NSTEMI - continue statin - restart b-tayler once blood pressure improves DVT ppx - Coumadin DNR/DNI
--- NOTE | 2018-03-13 18:57 | Progress Note ---
Subjective Date of Service: March 13, 2018. Subjective Pt evaluation today including: conversation w/ patient, physical exam, chart review, lab review, review of inpatient medication list Pain: Denies PO Intake: Tolerating a regular diet 87-year-old female postoperative day #3 status post left ureteral stent placement for obstructing stones and sepsis. Clinically she feels much improved and is in good spirits today. She is afebrile greater than 24 hours and her white count is normalized. Her urinary cultures demonstrating Citrobacter are noted. Past inpatient notes reviewed. Problem List Medical Problems: (1) Abdominal pain Status: Acute (2) Bowel obstruction Status: Acute (3) Gastroenteritis Status: Acute (4) Leukocytosis Status: Acute (5) Low back pain Status: Acute (6) Sepsis Status: Acute Review of Systems Constitutional: No fever, No chills Eyes: No worsening of vision ENT: No hearing loss Respiratory: No wheezing, No shortness of breath Cardiac: No chest pain Abdomen: No nausea, No vomiting Female : + see HPI Neurologic: No paralysis Psychiatric: No depression symptoms Skin: No color change Objective Vital Signs Date Time Temp Pulse Resp B/P (MAP) Pulse Ox O2 Delivery O2 Flow Rate FiO2 03/13/18 14:38 36.7 77 20 136/76 (96) 93 03/13/18 08:00 Room Air 03/13/18 07:24 36.8 74 20 93/54 (67) 100 03/13/18 06:55 86 18 94 Room Air 03/12/18 23:59 Nasal Cannula 2.0 03/12/18 22:45 37.3 89 18 116/67 (83) 95 Room Air 03/12/18 19:41 89 18 95 Room Air Physical Exam General Appearance: WD/WN, no apparent distress ENT: hearing grossly normal Neck: supple, no adenopathy Respiratory/Chest: no respiratory distress, no accessory muscle use Cardiovascular: no JVD Abdomen: non tender, soft Extremities: non-tender Neurologic/Psychiatric: alert Skin: normal color Laboratory Results Last 24 Hours Test 03/13/18 05:51 White Blood Count 6.87 K/uL Red Blood Count 2.73 M/uL Hemoglobin 8.1 g/dL Hematocrit 25.3 % Mean Corpuscular Volume 92.7 fL Mean Corpuscular Hemoglobin 29.7 pg Mean Corpuscular Hemoglobin Concent 32.0 g/dl Platelet Count 138 K/uL Mean Platelet Volume 9.1 fL Neutrophils (%) (Auto) 69.0 % Lymphocytes (%) (Auto) 17.9 % Monocytes (%) (Auto) 7.9 % Eosinophils (%) (Auto) 4.2 % Basophils (%) (Auto) 0.3 % Neutrophils # (Auto) 4.74 K/uL Lymphocytes # (Auto) 1.23 K/uL Monocytes # (Auto) 0.54 K/uL Eosinophils # (Auto) 0.29 K/uL Basophils # (Auto) 0.02 K/uL RDW Standard Deviation 56.0 fL RDW Coefficient of Variation 16.5 % Immature Granulocyte % (Auto) 0.7 % Immature Granulocyte # (Auto) 0.05 K/uL Red Blood Cell Morphology Unremarkable Prothrombin Time 21.2 SECONDS Prothromb Time International Ratio 2.0 Sodium Level 145 mmol/L Potassium Level 4.3 mmol/L Chloride Level 114 mmol/L Carbon Dioxide Level 26 mmol/L Anion Gap 5.0 mmol/L Blood Urea Nitrogen 11 mg/dl Creatinine 0.93 mg/dl Est Creatinine Clear Calc Drug Dose 39.1 ml/min Estimated GFR () 65.0 Estimated GFR (Non- 56.0 BUN/Creatinine Ratio 11.6 Random Glucose 77 mg/dl Calcium Level 8.0 mg/dl Phosphorus Level 3.1 mg/dl Magnesium Level 2.2 mg/dl Total Bilirubin 0.5 mg/dl Aspartate Amino Transf (AST/SGOT) 51 U/L Alanine Aminotransferase (ALT/SGPT) 28 U/L Alkaline Phosphatase 69 U/L Total Protein 5.3 gm/dl Albumin 1.8 gm/dl Globulin 3.5 gm/dl Albumin/Globulin Ratio 0.5 Assessment and Plan A/P 87-year-old female status post acute left ureteral stent placement for stone and sepsis. Antibiotic therapy per culture results 2 weeks. We will arrange for outpatient follow-up with our service for definitive stone management. Care is discussed with the patient vocalizes good understanding of the treatment plan. Thank you for allowing us to participate in this patient's acute care. Will sign off, please recall our service as needed new questions or concerns.
[2018-03-13] MEDS: GABAPENTIN 100 MG CAP PO SCH (20:42)
[2018-03-13] MEDS: MIRTAZAPINE TAB 15 MG TAB PO SCH (20:42)
[2018-03-13] MEDS: ATORVASTATIN 20 MG TAB PO SCH (20:42)
[2018-03-13] MEDS: CHOLECALCIFEROL 1000 INTER.UNIT TAB PO SCH (20:43)
[2018-03-13 22:55] VITALS: BP 145/78; PULSE 71; TEMP 36.9; O2SAT 98
[2018-03-13 23:59] VITALS: O2SAT 93
[2018-03-14] MEDS: LEVOTHYROXINE 25 MCG TAB PO SCH (06:11)
[2018-03-14 07:09] VITALS: BP 115/71; PULSE 72; TEMP 37; O2SAT 92
[2018-03-14 07:16] LABS: HEMATOCRIT 25.8 % (37-47); HEMOGLOBIN 8.3 g/dL (12.0-16.0); MEAN CELL VOLUME 92.5 fL (80-100); MEAN CORPUSCULAR HEMOGLOBIN 29.7 pg (25-34); MEAN CORPUSCULAR HGB CONC 32.2 g/dl (32-36); MEAN PLATELET VOLUME 8.7 fL (7.4-10.4); PLATELET COUNT 149 K/uL (130-400); RED CELL DISTRIBUTION WIDTH CV 16.3 % (11.5-14.5); RED CELL DISTRIBUTION WIDTH SD 56.1 fL (36.4-46.3)
[2018-03-14 07:24] LABS: INR 2.5 (0.9-1.1)
[2018-03-14 07:44] LABS: CALCIUM 7.9 mg/dl (8.5-10.1); CREATININE 0.89 mg/dl (0.60-1.20); POTASSIUM 3.6 mmol/L (3.5-5.1)
[2018-03-14] MEDS: OXYBUTYNIN CHLORIDE 5 MG TAB PO SCH ×2 (07:47→20:25)
[2018-03-14] MEDS: PANTOprazole SOD 40 MG TAB PO SCH (07:47)
[2018-03-14] MEDS: CITALOPRAM 20 MG TAB PO SCH (07:47)
[2018-03-14] MEDS: THIAMINE HCL 100 MG TAB PO SCH (07:48)
[2018-03-14 08:00] VITALS: O2SAT 93
[2018-03-14] MEDS: LEVOFLOXACIN 750MG / D5W IV SCH (08:28)
--- NOTE | 2018-03-14 13:53 | Progress Note ---
Subjective Date of Service: March 14, 2018. Subjective Pt evaluation today including: conversation w/ patient, physical exam, lab review, review of studies, review of inpatient medication list Saw/examined the patient in room 250 She's having +diarrhea Denies dysuria, burning with urination, Rowell catheter removed No chest pain/shortness of breath Problem List Medical Problems: (1) Abdominal pain Status: Acute (2) Bowel obstruction Status: Acute (3) Gastroenteritis Status: Acute (4) Leukocytosis Status: Acute (5) Low back pain Status: Acute (6) Sepsis Status: Acute Review of Systems Constitutional: + weakness, No fever, No chills Respiratory: No cough, No sputum, No shortness of breath Cardiac: No chest pain Abdomen: + diarrhea, No pain, No nausea, No vomiting, No constipation, No GI bleeding Musculoskeletal: No joint pain Medications Current Inpatient Medications Medications (Trade) Dose Ordered Sig/Jamilah Route Start Time Stop Time Status Last Admin Dose Admin Atorvastatin Calcium (Lipitor Tab) 20 mg HS PO 03/10/18 21:00 04/09/18 20:59 03/13/18 20:42 20 MG Cholecalciferol (Vitamin D Tab) 2,000 inter.unit HS PO 03/10/18 21:00 04/09/18 20:59 03/13/18 20:43 2,000 INTER.UNIT Citalopram Hydrobromide (celeXA TAB) 20 mg DAILY PO 03/11/18 09:00 04/10/18 08:59 03/14/18 07:47 20 MG Gabapentin (Neurontin Cap) 100 mg HS PO 03/10/18 21:00 04/09/18 20:59 03/13/18 20:42 100 MG Levothyroxine Sodium (Synthroid Tab) 25 mcg DAILYBB PO 03/11/18 06:00 04/10/18 06:29 03/14/18 06:11 25 MCG Mirtazapine (Remeron Tab) 15 mg HS PO 03/10/18 21:00 04/09/18 20:59 03/13/18 20:42 15 MG Oxybutynin Chloride (Ditropan Tab) 5 mg BID PO 03/10/18 21:00 04/09/18 20:59 03/14/18 07:47 5 MG Pantoprazole Sodium (Protonix Tab) 40 mg DAILY PO 03/11/18 09:00 04/10/18 08:59 03/14/18 07:47 40 MG Acetaminophen (Tylenol Tab) 650 mg Q4H PRN PO 03/10/18 12:00 04/09/18 11:59 03/13/18 08:54 650 MG Al Hydrox/Mg Hydrox/Simethicone (Maalox Max Susp) 15 ml Q4H PRN PO 03/10/18 12:00 04/09/18 11:59 Magnesium Hydroxide (Milk Of Magnesia Susp) 30 ml Q12H PRN PO 03/10/18 12:00 04/09/18 11:59 Ondansetron HCl (Zofran Inj) 4 mg Q6H PRN IV 03/10/18 12:00 04/09/18 11:59 Nitroglycerin (Nitrostat Tab) 0.4 mg UD PRN SL 03/10/18 12:00 04/09/18 11:59 Polyethylene (Miralax Powder Packet) 17 gm DAILY PRN PO 03/10/18 12:00 04/09/18 11:59 03/13/18 16:20 17 GM Thiamine HCl (Vitamin B-1 Tab) 200 mg QAM PO 03/12/18 09:00 04/11/18 08:59 03/14/18 07:48 200 MG Enteral Nutritional Formula (Boost) 1 can TID PRN PO 03/11/18 10:15 04/10/18 10:14 Phenazopyridine HCl (Pyridium Tab) 100 mg TID PRN PO 03/11/18 12:00 04/10/18 11:59 03/11/18 14:23 100 MG Warfarin Sodium (Coumadin Tab) 1 mg DAILY@16 PO 03/13/18 16:00 04/12/18 15:59 03/13/18 16:21 1 MG Warfarin Sodium (Coumadin Tab) 0.5 mg DAILY@16 PO 03/13/18 16:00 04/12/18 15:59 03/13/18 16:22 0.5 MG Levofloxacin (Consult) 1 ea UD PRN N/A 03/12/18 09:15 04/11/18 09:14 Levofloxacin 750 mg/Prmx 150 ml @ 100 mls/hr Q2D@0900 IV 03/12/18 09:10 03/26/18 09:09 03/14/18 08:28 100 MLS/HR Albuterol/ Ipratropium (Duoneb) 3 ml Q4R PRN INH 03/13/18 09:15 04/12/18 09:14 Objective Vital Signs Date Time Temp Pulse Resp B/P (MAP) Pulse Ox O2 Delivery O2 Flow Rate FiO2 03/14/18 08:00 93 Room Air 2.0 Nasal Cannula 03/14/18 07:09 37.0 72 18 115/71 (86) 92 Room Air 03/13/18 23:59 93 Room Air 03/13/18 22:55 36.9 71 18 145/78 (100) 98 Room Air 03/13/18 16:00 93 Room Air 2.0 Nasal Cannula 03/13/18 14:38 36.7 77 20 136/76 (96) 93 Physical Exam General Appearance: no apparent distress Respiratory/Chest: chest non-tender, lungs clear, normal breath sounds, no respiratory distress, no accessory muscle use Cardiovascular: regular rate, rhythm, no edema, no murmur Abdomen: normal bowel sounds, non tender, soft Extremities: normal range of motion, non-tender, normal inspection, no pedal edema, no calf tenderness Neurologic/Psychiatric: no motor/sensory deficits, alert, normal mood/affect Laboratory Results Last 24 Hours Test 03/14/18 07:05 White Blood Count 8.90 K/uL Red Blood Count 2.79 M/uL Hemoglobin 8.3 g/dL Hematocrit 25.8 % Mean Corpuscular Volume 92.5 fL Mean Corpuscular Hemoglobin 29.7 pg Mean Corpuscular Hemoglobin Concent 32.2 g/dl RDW Standard Deviation 56.1 fL RDW Coefficient of Variation 16.3 % Platelet Count 149 K/uL Mean Platelet Volume 8.7 fL Prothrombin Time 26.0 SECONDS Prothromb Time International Ratio 2.5 Sodium Level 140 mmol/L Potassium Level 3.6 mmol/L Chloride Level 111 mmol/L Carbon Dioxide Level 24 mmol/L Anion Gap 5.0 mmol/L Blood Urea Nitrogen 8 mg/dl Creatinine 0.89 mg/dl Est Creatinine Clear Calc Drug Dose 40.8 ml/min Estimated GFR () 68.5 Estimated GFR (Non- 59.1 BUN/Creatinine Ratio 9.0 Random Glucose 82 mg/dl Calcium Level 7.9 mg/dl Assessment and Plan This is an 87 year old female with a 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 of paroxysmal atrial fibrillation, CAD and hx. 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 with Keflex - presents with weakness, dysuria, hematuria Septicemia secondary to Urinary Tract Infection Obstructive Uropathy secondary to Kidney Stone leading to Acute Kidney Injury Metabolic Encephalopathy 03/14 - mental status improved - continue Levaquin as per ID - cultures positive - repeat blood cultures pending - s/p stenting as per urology - further management as per ID, urology 03/13 - continue Levaquin and Zosyn as per ID - blood cultures are still positive - repeat blood cultures pending - s/p stenting - outpatient lithotripsy 03/12 - clinically improving after emergent stent and abx. - continue broad spectrum antibiotics - added Levaquin as per ID to cover urine culture/blood cultures - repeat blood cultures are also positive - will need to obtain further cultures, appreciate ID/urology input - creatinine improved and IV fluid stopped 03/11 - 6mm obstructing stone noted on the L ureter - patient septic with white count elevation, lactic acidosis on admission - blood cultures positive x2 - gram negative bacilli - urine culture positive for gram negative bacilli as well - s/p stenting; currently IV Zosyn - appreciate urology and ID input - creatinine on admission >2, giving IV fluids with improvement - creatinine trending down, WBC trending down, lactic acid < 2 Hx. of DVT and Paroxysmal A. Fib 03/13 - Coumadin, goal INR of 2-3 03/12 - adding subq heparin to Coumadin - monitor INR with goal of 2-3 03/11 - on Coumadin - supratherapeutic INR on admission - now improving Anemia - improving - unsure of underlying cause, hematuria from obstructing stone? kidney injury? - monitor H/H - monitor INR, hold Coumadin until INR therapeutic - if no improvement, will check iron panel, B12, folate CAD hx. of NSTEMI - continue statin - restart b-tayler once blood pressure improves DVT ppx - Coumadin DNR/DNI
[2018-03-14] MEDS: WARFARIN SOD 0.5 MG TAB PO SCH (15:30)
[2018-03-14] MEDS: WARFARIN SOD 1 MG TAB PO SCH (15:31)
[2018-03-14 15:34] VITALS: BP 117/74; PULSE 79; TEMP 36.9; O2SAT 96
[2018-03-14 16:00] VITALS: O2SAT 95
[2018-03-14] MEDS: MIRTAZAPINE TAB 15 MG TAB PO SCH (20:25)
[2018-03-14] MEDS: GABAPENTIN 100 MG CAP PO SCH (20:25)
[2018-03-14] MEDS: ATORVASTATIN 20 MG TAB PO SCH (20:25)
[2018-03-14] MEDS: CHOLECALCIFEROL 1000 INTER.UNIT TAB PO SCH (20:26)
[2018-03-15 00:02] VITALS: BP 120/74; PULSE 89; TEMP 36.7; O2SAT 91
[2018-03-15] MEDS: LEVOTHYROXINE 25 MCG TAB PO SCH (05:43)
[2018-03-15 06:38] LABS: HEMATOCRIT 24.2 % (37-47); HEMOGLOBIN 7.9 g/dL (12.0-16.0); MEAN CELL VOLUME 92.7 fL (80-100); MEAN CORPUSCULAR HEMOGLOBIN 30.3 pg (25-34); MEAN CORPUSCULAR HGB CONC 32.6 g/dl (32-36); MEAN PLATELET VOLUME 9.2 fL (7.4-10.4); PLATELET COUNT 166 K/uL (130-400); RED CELL DISTRIBUTION WIDTH CV 16.1 % (11.5-14.5); RED CELL DISTRIBUTION WIDTH SD 54.8 fL (36.4-46.3); WHITE BLOOD COUNT 8.36 K/uL (4.8-10.8)
[2018-03-15 07:01] VITALS: BP 114/70; PULSE 73; TEMP 37.3; O2SAT 94
[2018-03-15 07:01] LABS: CALCIUM 7.8 mg/dl (8.5-10.1); CREATININE 0.86 mg/dl (0.60-1.20); POTASSIUM 3.2 mmol/L (3.5-5.1)
[2018-03-15] MEDS: PANTOprazole SOD 40 MG TAB PO SCH (08:45)
[2018-03-15] MEDS: OXYBUTYNIN CHLORIDE 5 MG TAB PO SCH ×2 (08:46→21:14)
[2018-03-15] MEDS: THIAMINE HCL 100 MG TAB PO SCH (08:46)
[2018-03-15] MEDS: CITALOPRAM 20 MG TAB PO SCH (08:46)
[2018-03-15 09:01] VITALS: O2SAT 94
[2018-03-15] MEDS: POTASSIUM CHLR 10 MEQ / WTR 100 ML IV SCH ×4 (11:13→16:09)
--- NOTE | 2018-03-15 11:36 | Progress Note ---
Subjective Date of Service: March 15, 2018. Subjective Pt evaluation today including: conversation w/ patient, physical exam, lab review, review of studies, review of inpatient medication list Saw/examined the patient in room 250 She's doing well, appetite is still an issue Denies abdominal pain, diarrhea improved Problem List Medical Problems: (1) Abdominal pain Status: Acute (2) Bowel obstruction Status: Acute (3) Gastroenteritis Status: Acute (4) Leukocytosis Status: Acute (5) Low back pain Status: Acute (6) Sepsis Status: Acute Review of Systems Constitutional: + weakness, + problem reported (lack of appetite), No fever, No chills Respiratory: No shortness of breath Cardiac: No chest pain Neurologic: + weakness, + balance problems, No memory loss, No paralysis, No numbness/tingling, No vertigo Medications Current Inpatient Medications Medications (Trade) Dose Ordered Sig/Jamilah Route Start Time Stop Time Status Last Admin Dose Admin Atorvastatin Calcium (Lipitor Tab) 20 mg HS PO 03/10/18 21:00 04/09/18 20:59 03/14/18 20:25 20 MG Cholecalciferol (Vitamin D Tab) 2,000 inter.unit HS PO 03/10/18 21:00 04/09/18 20:59 03/14/18 20:26 2,000 INTER.UNIT Citalopram Hydrobromide (celeXA TAB) 20 mg DAILY PO 03/11/18 09:00 04/10/18 08:59 03/15/18 08:46 20 MG Gabapentin (Neurontin Cap) 100 mg HS PO 03/10/18 21:00 04/09/18 20:59 03/14/18 20:25 100 MG Levothyroxine Sodium (Synthroid Tab) 25 mcg DAILYBB PO 03/11/18 06:00 04/10/18 06:29 03/15/18 05:43 25 MCG Mirtazapine (Remeron Tab) 15 mg HS PO 03/10/18 21:00 04/09/18 20:59 03/14/18 20:25 15 MG Oxybutynin Chloride (Ditropan Tab) 5 mg BID PO 03/10/18 21:00 04/09/18 20:59 03/15/18 08:46 5 MG Pantoprazole Sodium (Protonix Tab) 40 mg DAILY PO 03/11/18 09:00 6/8/18 08:59 03/15/18 08:45 40 MG Acetaminophen (Tylenol Tab) 650 mg Q4H PRN PO 03/10/18 12:00 04/09/18 11:59 03/13/18 08:54 650 MG Al Hydrox/Mg Hydrox/Simethicone (Maalox Max Susp) 15 ml Q4H PRN PO 03/10/18 12:00 04/09/18 11:59 Magnesium Hydroxide (Milk Of Magnesia Susp) 30 ml Q12H PRN PO 03/10/18 12:00 04/09/18 11:59 Ondansetron HCl (Zofran Inj) 4 mg Q6H PRN IV 03/10/18 12:00 04/09/18 11:59 Nitroglycerin (Nitrostat Tab) 0.4 mg UD PRN SL 03/10/18 12:00 04/09/18 11:59 Polyethylene (Miralax Powder Packet) 17 gm DAILY PRN PO 03/10/18 12:00 04/09/18 11:59 03/13/18 16:20 17 GM Thiamine HCl (Vitamin B-1 Tab) 200 mg QAM PO 03/12/18 09:00 04/11/18 08:59 03/15/18 08:46 200 MG Enteral Nutritional Formula (Boost) 1 can TID PRN PO 03/11/18 10:15 04/10/18 10:14 Phenazopyridine HCl (Pyridium Tab) 100 mg TID PRN PO 03/11/18 12:00 04/10/18 11:59 03/11/18 14:23 100 MG Warfarin Sodium (Coumadin Tab) 1 mg DAILY@16 PO 03/13/18 16:00 04/12/18 15:59 03/14/18 15:31 1 MG Warfarin Sodium (Coumadin Tab) 0.5 mg DAILY@16 PO 03/13/18 16:00 04/12/18 15:59 03/14/18 15:30 0.5 MG Levofloxacin (Consult) 1 ea UD PRN N/A 03/12/18 09:15 04/11/18 09:14 Levofloxacin 750 mg/Prmx 150 ml @ 100 mls/hr Q2D@0900 IV 03/12/18 09:10 03/26/18 09:09 03/14/18 08:28 100 MLS/HR Albuterol/ Ipratropium (Duoneb) 3 ml Q4R PRN INH 03/13/18 09:15 04/12/18 09:14 Potassium Chloride 100 ml @ 100 mls/hr Q1H IV 03/15/18 10:30 03/15/18 14:29 03/15/18 11:13 100 MLS/HR Objective Vital Signs Date Time Temp Pulse Resp B/P (MAP) Pulse Ox O2 Delivery O2 Flow Rate FiO2 03/15/18 09:01 94 Room Air 03/15/18 07:01 37.3 73 20 114/70 (85) 94 03/15/18 00:02 36.7 89 18 120/74 (89) 91 Room Air 03/15/18 00:00 Room Air 03/14/18 16:00 95 Room Air Nasal Cannula 03/14/18 15:34 36.9 79 16 117/74 (88) 96 Room Air Physical Exam General Appearance: no apparent distress Respiratory/Chest: chest non-tender, lungs clear, normal breath sounds, no respiratory distress, no accessory muscle use Cardiovascular: regular rate, rhythm, no edema, no murmur Neurologic/Psychiatric: no motor/sensory deficits, alert, normal mood/affect Laboratory Results Last 24 Hours Test 03/15/18 06:20 White Blood Count 8.36 K/uL Red Blood Count 2.61 M/uL Hemoglobin 7.9 g/dL Hematocrit 24.2 % Mean Corpuscular Volume 92.7 fL Mean Corpuscular Hemoglobin 30.3 pg Mean Corpuscular Hemoglobin Concent 32.6 g/dl RDW Standard Deviation 54.8 fL RDW Coefficient of Variation 16.1 % Platelet Count 166 K/uL Mean Platelet Volume 9.2 fL Prothrombin Time 31.0 SECONDS Prothromb Time International Ratio 3.0 Sodium Level 144 mmol/L Potassium Level 3.2 mmol/L Chloride Level 112 mmol/L Carbon Dioxide Level 25 mmol/L Anion Gap 7.0 mmol/L Blood Urea Nitrogen 7 mg/dl Creatinine 0.86 mg/dl Est Creatinine Clear Calc Drug Dose 42.3 ml/min Estimated GFR () 71.4 Estimated GFR (Non- 61.6 BUN/Creatinine Ratio 7.6 Random Glucose 84 mg/dl Calcium Level 7.8 mg/dl Magnesium Level 2.0 mg/dl Assessment and Plan This is an 87 year old female with a 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 of paroxysmal atrial fibrillation, CAD and hx. 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 with Keflex - presents with weakness, dysuria, hematuria Septicemia secondary to Urinary Tract Infection Obstructive Uropathy secondary to Kidney Stone leading to Acute Kidney Injury Metabolic Encephalopathy 03/15 - patient is doing well, blood cultures negative from 03/12 - continue Levaquin, will need 14 days of Levaquin from last negative blood culture - MEGHAN resolved after stent placement - will need SNF discharge in 1-2 days, and outpatient urology follow-up 03/14 - mental status improved - continue Levaquin as per ID - cultures positive - repeat blood cultures pending - s/p stenting as per urology - further management as per ID, urology 03/13 - continue Levaquin and Zosyn as per ID - blood cultures are still positive - repeat blood cultures pending - s/p stenting - outpatient lithotripsy 03/12 - clinically improving after emergent stent and abx. - continue broad spectrum antibiotics - added Levaquin as per ID to cover urine culture/blood cultures - repeat blood cultures are also positive - will need to obtain further cultures, appreciate ID/urology input - creatinine improved and IV fluid stopped 03/11 - 6mm obstructing stone noted on the L ureter - patient septic with white count elevation, lactic acidosis on admission - blood cultures positive x2 - gram negative bacilli - urine culture positive for gram negative bacilli as well - s/p stenting; currently IV Zosyn - appreciate urology and ID input - creatinine on admission >2, giving IV fluids with improvement - creatinine trending down, WBC trending down, lactic acid < 2 Hx. of DVT and Paroxysmal A. Fib 03/13 - Coumadin, goal INR of 2-3 03/12 - adding subq heparin to Coumadin - monitor INR with goal of 2-3 03/11 - on Coumadin - supratherapeutic INR on admission - now improving Anemia - improving - unsure of underlying cause, hematuria from obstructing stone? kidney injury? - monitor H/H - monitor INR, hold Coumadin until INR therapeutic - if no improvement, will check iron panel, B12, folate CAD hx. of NSTEMI - continue statin - restart b-tayler once blood pressure improves DVT ppx - Coumadin DNR/DNI
[2018-03-15 15:14] VITALS: BP 120/73; PULSE 76; TEMP 37; O2SAT 95
[2018-03-15 16:00] VITALS: O2SAT 95
[2018-03-15] MEDS: WARFARIN SOD 0.5 MG TAB PO SCH (16:10)
[2018-03-15] MEDS: WARFARIN SOD 1 MG TAB PO SCH (16:10)
[2018-03-15] MEDS: ACETAMINOPHEN 325 MG TAB PO PRN (16:11)
[2018-03-15] MEDS: BOOST VANILLA PO SCH (16:39)
[2018-03-15] MEDS: MIRTAZAPINE TAB 15 MG TAB PO SCH (21:14)
[2018-03-15] MEDS: CHOLECALCIFEROL 1000 INTER.UNIT TAB PO SCH (21:14)
[2018-03-15] MEDS: ATORVASTATIN 20 MG TAB PO SCH (21:14)
[2018-03-15] MEDS: GABAPENTIN 100 MG CAP PO SCH (21:14)
[2018-03-16 00:11] VITALS: BP 103/60; PULSE 70; TEMP 36.5; O2SAT 95
[2018-03-16] MEDS: LEVOTHYROXINE 25 MCG TAB PO SCH (06:23)
[2018-03-16 07:11] LABS: HEMATOCRIT 26.3 % (37-47); HEMOGLOBIN 8.3 g/dL (12.0-16.0); MEAN CELL VOLUME 93.3 fL (80-100); MEAN CORPUSCULAR HEMOGLOBIN 29.4 pg (25-34); MEAN CORPUSCULAR HGB CONC 31.6 g/dl (32-36); PLATELET COUNT 195 K/uL (130-400); RED CELL DISTRIBUTION WIDTH CV 16.1 % (11.5-14.5); RED CELL DISTRIBUTION WIDTH SD 55.3 fL (36.4-46.3); WHITE BLOOD COUNT 8.37 K/uL (4.8-10.8)
[2018-03-16 07:15] LABS: INR 2.9 (0.9-1.1)
[2018-03-16 07:18] VITALS: BP 129/69; PULSE 69; TEMP 37.1; O2SAT 94
[2018-03-16 07:31] LABS: CALCIUM 8.3 mg/dl (8.5-10.1); CREATININE 0.84 mg/dl (0.60-1.20); POTASSIUM 3.6 mmol/L (3.5-5.1)
[2018-03-16] MEDS: LEVOFLOXACIN 750MG / D5W IV SCH (09:25)
[2018-03-16] MEDS: PANTOprazole SOD 40 MG TAB PO SCH (09:25)
[2018-03-16] MEDS: THIAMINE HCL 100 MG TAB PO SCH (09:25)
[2018-03-16] MEDS: OXYBUTYNIN CHLORIDE 5 MG TAB PO SCH ×2 (09:25→21:08)
[2018-03-16] MEDS: CITALOPRAM 20 MG TAB PO SCH (09:27)
[2018-03-16] MEDS: BOOST VANILLA PO SCH ×2 (09:27→16:50)
--- NOTE | 2018-03-16 10:34 | Progress Note ---
Subjective Date of Service: March 16, 2018. Subjective remains on levaquin, tolerating, some diarrhea over weekend, c diff negative. cultures negative to date, previous cultures with citrobacter. afebrile. wbc nml. for d/c soon. Problem List Medical Problems: (1) Abdominal pain Status: Acute (2) Bowel obstruction Status: Acute (3) Gastroenteritis Status: Acute (4) Leukocytosis Status: Acute (5) Low back pain Status: Acute (6) Sepsis Status: Acute Objective Vital Signs Date Time Temp Pulse Resp B/P (MAP) Pulse Ox O2 Delivery O2 Flow Rate FiO2 03/16/18 08:00 Room Air 03/16/18 07:18 37.1 69 16 129/69 (89) 94 Room Air 03/16/18 00:18 Room Air 03/16/18 00:11 36.5 70 20 103/60 (74) 95 Room Air 03/15/18 16:00 95 Room Air Nasal Cannula 03/15/18 15:14 37.0 76 18 120/73 (89) 95 Room Air Laboratory Results Item Value Date Time Blood Culture - Preliminary Resulted 03/12/18 1219 Blood NO GROWTH TO DATE. Blood Culture - Preliminary Resulted 03/12/18 1204 Blood NO GROWTH TO DATE. Blood Culture - Preliminary Resulted 03/12/18 0930 Blood Citrobacter Freundii Complex Urine Culture - Final Complete 03/11/18 1130 Urine,Catheterized Citrobacter Freundii Complex Blood Culture - Final Complete 03/10/18 1047 Blood Citrobacter Freundii Complex Last 24 Hours Test 03/16/18 06:51 White Blood Count 8.37 K/uL Red Blood Count 2.82 M/uL Hemoglobin 8.3 g/dL Hematocrit 26.3 % Mean Corpuscular Volume 93.3 fL Mean Corpuscular Hemoglobin 29.4 pg Mean Corpuscular Hemoglobin Concent 31.6 g/dl RDW Standard Deviation 55.3 fL RDW Coefficient of Variation 16.1 % Platelet Count 195 K/uL Mean Platelet Volume 9.0 fL Prothrombin Time 30.0 SECONDS Prothromb Time International Ratio 2.9 Sodium Level 144 mmol/L Potassium Level 3.6 mmol/L Chloride Level 113 mmol/L Carbon Dioxide Level 25 mmol/L Anion Gap 7.0 mmol/L Blood Urea Nitrogen 6 mg/dl Creatinine 0.84 mg/dl Est Creatinine Clear Calc Drug Dose 43.3 ml/min Estimated GFR () 73.5 Estimated GFR (Non- 63.4 BUN/Creatinine Ratio 7.3 Random Glucose 94 mg/dl Calcium Level 8.3 mg/dl Magnesium Level 2.0 mg/dl Assessment and Plan (1) Gram negative septicemia Assessment & Plan: continue levaquin, maintain IV for now as po intake poor. will need 14 days from first negative culture, can change to levaquin 500mg po daily when eating full diet. (2) UTI (urinary tract infection)
--- NOTE | 2018-03-16 11:00 | Progress Note ---
Subjective Date of Service: March 16, 2018. Subjective Pt evaluation today including: conversation w/ patient, physical exam, lab review, review of studies, review of inpatient medication list Saw/examined the patient in room 250 She's doing well to day; +weakness persists Denies fevers/chills, pain, abdominal pain, nausea/vomiting, etc. Problem List Medical Problems: (1) Abdominal pain Status: Acute (2) Bowel obstruction Status: Acute (3) Gastroenteritis Status: Acute (4) Leukocytosis Status: Acute (5) Low back pain Status: Acute (6) Sepsis Status: Acute Review of Systems Constitutional: + weakness, No fever, No chills Respiratory: No cough, No sputum, No shortness of breath Cardiac: No chest pain, No edema, No palpitations Abdomen: No pain, No nausea, No vomiting, No diarrhea Female : No dysuria, No urinary frequency Medications Current Inpatient Medications Medications (Trade) Dose Ordered Sig/Jamilah Route Start Time Stop Time Status Last Admin Dose Admin Atorvastatin Calcium (Lipitor Tab) 20 mg HS PO 03/10/18 21:00 04/09/18 20:59 03/15/18 21:14 20 MG Cholecalciferol (Vitamin D Tab) 2,000 inter.unit HS PO 03/10/18 21:00 04/09/18 20:59 03/15/18 21:14 2,000 INTER.UNIT Citalopram Hydrobromide (celeXA TAB) 20 mg DAILY PO 03/11/18 09:00 04/10/18 08:59 03/16/18 09:27 20 MG Gabapentin (Neurontin Cap) 100 mg HS PO 03/10/18 21:00 04/09/18 20:59 03/15/18 21:14 100 MG Levothyroxine Sodium (Synthroid Tab) 25 mcg DAILYBB PO 03/11/18 06:00 04/10/18 06:29 03/16/18 06:23 25 MCG Mirtazapine (Remeron Tab) 15 mg HS PO 03/10/18 21:00 04/09/18 20:59 03/15/18 21:14 15 MG Oxybutynin Chloride (Ditropan Tab) 5 mg BID PO 03/10/18 21:00 04/09/18 20:59 03/16/18 09:25 5 MG Pantoprazole Sodium (Protonix Tab) 40 mg DAILY PO 03/11/18 09:00 04/10/18 08:59 03/16/18 09:25 40 MG Acetaminophen (Tylenol Tab) 650 mg Q4H PRN PO 03/10/18 12:00 04/09/18 11:59 03/15/18 16:11 650 MG Al Hydrox/Mg Hydrox/Simethicone (Maalox Max Susp) 15 ml Q4H PRN PO 03/10/18 12:00 04/09/18 11:59 Magnesium Hydroxide (Milk Of Magnesia Susp) 30 ml Q12H PRN PO 03/10/18 12:00 04/09/18 11:59 Ondansetron HCl (Zofran Inj) 4 mg Q6H PRN IV 03/10/18 12:00 04/09/18 11:59 Nitroglycerin (Nitrostat Tab) 0.4 mg UD PRN SL 03/10/18 12:00 04/09/18 11:59 Polyethylene (Miralax Powder Packet) 17 gm DAILY PRN PO 03/10/18 12:00 04/09/18 11:59 03/13/18 16:20 17 GM Thiamine HCl (Vitamin B-1 Tab) 200 mg QAM PO 03/12/18 09:00 04/11/18 08:59 03/16/18 09:25 200 MG Enteral Nutritional Formula (Boost) 1 can TID PRN PO 03/11/18 10:15 04/10/18 10:14 Phenazopyridine HCl (Pyridium Tab) 100 mg TID PRN PO 03/11/18 12:00 04/10/18 11:59 03/11/18 14:23 100 MG Warfarin Sodium (Coumadin Tab) 1 mg DAILY@16 PO 03/13/18 16:00 04/12/18 15:59 03/15/18 16:10 1 MG Warfarin Sodium (Coumadin Tab) 0.5 mg DAILY@16 PO 03/13/18 16:00 04/12/18 15:59 03/15/18 16:10 0.5 MG Levofloxacin (Consult) 1 ea UD PRN N/A 03/12/18 09:15 04/11/18 09:14 Levofloxacin 750 mg/Prmx 150 ml @ 100 mls/hr Q2D@0900 IV 03/12/18 09:10 03/26/18 09:09 03/16/18 09:25 100 MLS/HR Albuterol/ Ipratropium (Duoneb) 3 ml Q4R PRN INH 03/13/18 09:15 04/12/18 09:14 Enteral Nutritional Formula (Boost) 1 can BIDM PO 03/15/18 17:00 04/14/18 16:59 03/15/18 16:39 1 CAN Objective Vital Signs Date Time Temp Pulse Resp B/P (MAP) Pulse Ox O2 Delivery O2 Flow Rate FiO2 03/16/18 08:00 Room Air 03/16/18 07:18 37.1 69 16 129/69 (89) 94 Room Air 03/16/18 00:18 Room Air 03/16/18 00:11 36.5 70 20 103/60 (74) 95 Room Air 03/15/18 16:00 95 Room Air Nasal Cannula 03/15/18 15:14 37.0 76 18 120/73 (89) 95 Room Air Physical Exam General Appearance: WD/WN, no apparent distress Respiratory/Chest: chest non-tender, lungs clear, normal breath sounds, no respiratory distress, no accessory muscle use Cardiovascular: regular rate, rhythm, no edema, no murmur Extremities: normal inspection, no pedal edema Neurologic/Psychiatric: no motor/sensory deficits, alert, normal mood/affect Laboratory Results Last 24 Hours Test 03/16/18 06:51 White Blood Count 8.37 K/uL Red Blood Count 2.82 M/uL Hemoglobin 8.3 g/dL Hematocrit 26.3 % Mean Corpuscular Volume 93.3 fL Mean Corpuscular Hemoglobin 29.4 pg Mean Corpuscular Hemoglobin Concent 31.6 g/dl RDW Standard Deviation 55.3 fL RDW Coefficient of Variation 16.1 % Platelet Count 195 K/uL Mean Platelet Volume 9.0 fL Prothrombin Time 30.0 SECONDS Prothromb Time International Ratio 2.9 Sodium Level 144 mmol/L Potassium Level 3.6 mmol/L Chloride Level 113 mmol/L Carbon Dioxide Level 25 mmol/L Anion Gap 7.0 mmol/L Blood Urea Nitrogen 6 mg/dl Creatinine 0.84 mg/dl Est Creatinine Clear Calc Drug Dose 43.3 ml/min Estimated GFR () 73.5 Estimated GFR (Non- 63.4 BUN/Creatinine Ratio 7.3 Random Glucose 94 mg/dl Calcium Level 8.3 mg/dl Magnesium Level 2.0 mg/dl Assessment and Plan This is an 87 year old female with a 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 of paroxysmal atrial fibrillation, CAD and hx. 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 with Keflex - presents with weakness, dysuria, hematuria Septicemia secondary to Urinary Tract Infection Obstructive Uropathy secondary to Kidney Stone leading to Acute Kidney Injury Metabolic Encephalopathy 03/16 - blood cultures negative thus far, preliminary report from 03/12, awaiting finalization - will need Levaquin for 14 days from the last negative blood culture - acute kidney injury resolved - outpatient urology follow-up - likely d/c back to [facility] 03/15 - patient is doing well, blood cultures negative from 03/12 - continue Levaquin, will need 14 days of Levaquin from last negative blood culture - MEGHAN resolved after stent placement - will need SNF discharge in 1-2 days, and outpatient urology follow-up 03/14 - mental status improved - continue Levaquin as per ID - cultures positive - repeat blood cultures pending - s/p stenting as per urology - further management as per ID, urology 03/13 - continue Levaquin and Zosyn as per ID - blood cultures are still positive - repeat blood cultures pending - s/p stenting - outpatient lithotripsy 03/12 - clinically improving after emergent stent and abx. - continue broad spectrum antibiotics - added Levaquin as per ID to cover urine culture/blood cultures - repeat blood cultures are also positive - will need to obtain further cultures, appreciate ID/urology input - creatinine improved and IV fluid stopped 03/11 - 6mm obstructing stone noted on the L ureter - patient septic with white count elevation, lactic acidosis on admission - blood cultures positive x2 - gram negative bacilli - urine culture positive for gram negative bacilli as well - s/p stenting; currently IV Zosyn - appreciate urology and ID input - creatinine on admission >2, giving IV fluids with improvement - creatinine trending down, WBC trending down, lactic acid < 2 Hx. of DVT and Paroxysmal A. Fib 03/16 - Cont. Coumadin, INR goal of 2-3, currently at 2.9, should monitor next week due to abx. use and interactions 03/13 - Coumadin, goal INR of 2-3 03/12 - adding subq heparin to Coumadin - monitor INR with goal of 2-3 03/11 - on Coumadin - supratherapeutic INR on admission - now improving Anemia - improving - unsure of underlying cause, hematuria from obstructing stone? kidney injury? - monitor H/H - monitor INR, hold Coumadin until INR therapeutic - if no improvement, will check iron panel, B12, folate CAD hx. of NSTEMI - continue statin - restart b-tayler once blood pressure improves DVT ppx - Coumadin DNR/DNI
[2018-03-16 15:33] VITALS: BP 121/73; PULSE 71; TEMP 37; O2SAT 93
[2018-03-16] MEDS: WARFARIN SOD 1 MG TAB PO SCH (15:41)
[2018-03-16] MEDS: WARFARIN SOD 0.5 MG TAB PO SCH (15:42)
[2018-03-16 16:00] VITALS: O2SAT 95
[2018-03-16] MEDS: CHOLECALCIFEROL 1000 INTER.UNIT TAB PO SCH (21:08)
[2018-03-16] MEDS: MIRTAZAPINE TAB 15 MG TAB PO SCH (21:09)
[2018-03-16] MEDS: GABAPENTIN 100 MG CAP PO SCH (21:09)
[2018-03-16] MEDS: ATORVASTATIN 20 MG TAB PO SCH (21:09)
[2018-03-16 23:08] VITALS: BP 127/76; PULSE 52; TEMP 37.2; O2SAT 99
[2018-03-17] MEDS: LEVOTHYROXINE 25 MCG TAB PO SCH (05:47)
[2018-03-17 06:51] VITALS: BP 107/65; PULSE 90; TEMP 36.5; O2SAT 90
[2018-03-17 07:46] LABS: INR 2.9 (0.9-1.1)
[2018-03-17 07:48] VITALS: O2SAT 90
[2018-03-17] MEDS: THIAMINE HCL 100 MG TAB PO SCH (07:53)
[2018-03-17] MEDS: PANTOprazole SOD 40 MG TAB PO SCH (07:53)
[2018-03-17] MEDS: OXYBUTYNIN CHLORIDE 5 MG TAB PO SCH (07:54)
[2018-03-17] MEDS: BOOST VANILLA PO SCH (07:54)
[2018-03-17] MEDS: CITALOPRAM 20 MG TAB PO SCH (07:54)
--- NOTE | 2018-03-17 10:31 | Progress Note ---
Subjective Date of Service: March 17, 2018. Subjective Pt evaluation today including: conversation w/ patient, physical exam, lab review, review of studies, review of inpatient medication list Saw/examined the patient in room 250 She is doing well, seated in a chair; no problems/issues to note today No fevers/chills +weakness persists, ambulatory dysfunction Problem List Medical Problems: (1) Abdominal pain Status: Acute (2) Bowel obstruction Status: Acute (3) Gastroenteritis Status: Acute (4) Leukocytosis Status: Acute (5) Low back pain Status: Acute (6) Sepsis Status: Acute Review of Systems Constitutional: + weakness, No fever, No chills Respiratory: No shortness of breath Cardiac: No chest pain Abdomen: No pain, No nausea, No vomiting, No diarrhea, No constipation, No GI bleeding Female : No dysuria, No urinary frequency, No hematuria Neurologic: + weakness, + balance problems, No memory loss, No paralysis, No numbness/tingling, No vertigo Medications Current Inpatient Medications Medications (Trade) Dose Ordered Sig/Jamilah Route Start Time Stop Time Status Last Admin Dose Admin Atorvastatin Calcium (Lipitor Tab) 20 mg HS PO 03/10/18 21:00 04/09/18 20:59 03/16/18 21:09 20 MG Cholecalciferol (Vitamin D Tab) 2,000 inter.unit HS PO 03/10/18 21:00 04/09/18 20:59 03/16/18 21:08 2,000 INTER.UNIT Citalopram Hydrobromide (celeXA TAB) 20 mg DAILY PO 03/11/18 09:00 04/10/18 08:59 03/17/18 07:54 20 MG Gabapentin (Neurontin Cap) 100 mg HS PO 03/10/18 21:00 04/09/18 20:59 03/16/18 21:09 100 MG Levothyroxine Sodium (Synthroid Tab) 25 mcg DAILYBB PO 03/11/18 06:00 04/10/18 06:29 03/17/18 05:47 25 MCG Mirtazapine (Remeron Tab) 15 mg HS PO 03/10/18 21:00 04/09/18 20:59 03/16/18 21:09 15 MG Oxybutynin Chloride (Ditropan Tab) 5 mg BID PO 03/10/18 21:00 04/09/18 20:59 03/17/18 07:54 5 MG Pantoprazole Sodium (Protonix Tab) 40 mg DAILY PO 03/11/18 09:00 04/10/18 08:59 03/17/18 07:53 40 MG Acetaminophen (Tylenol Tab) 650 mg Q4H PRN PO 03/10/18 12:00 04/09/18 11:59 03/15/18 16:11 650 MG Al Hydrox/Mg Hydrox/Simethicone (Maalox Max Susp) 15 ml Q4H PRN PO 03/10/18 12:00 04/09/18 11:59 Magnesium Hydroxide (Milk Of Magnesia Susp) 30 ml Q12H PRN PO 03/10/18 12:00 04/09/18 11:59 Ondansetron HCl (Zofran Inj) 4 mg Q6H PRN IV 03/10/18 12:00 04/09/18 11:59 Nitroglycerin (Nitrostat Tab) 0.4 mg UD PRN SL 03/10/18 12:00 04/09/18 11:59 Polyethylene (Miralax Powder Packet) 17 gm DAILY PRN PO 03/10/18 12:00 04/09/18 11:59 03/13/18 16:20 17 GM Thiamine HCl (Vitamin B-1 Tab) 200 mg QAM PO 03/12/18 09:00 04/11/18 08:59 03/17/18 07:53 200 MG Enteral Nutritional Formula (Boost) 1 can TID PRN PO 03/11/18 10:15 04/10/18 10:14 Phenazopyridine HCl (Pyridium Tab) 100 mg TID PRN PO 03/11/18 12:00 04/10/18 11:59 03/11/18 14:23 100 MG Warfarin Sodium (Coumadin Tab) 1 mg DAILY@16 PO 03/13/18 16:00 04/12/18 15:59 03/16/18 15:41 1 MG Warfarin Sodium (Coumadin Tab) 0.5 mg DAILY@16 PO 03/13/18 16:00 04/12/18 15:59 03/16/18 15:42 0.5 MG Levofloxacin (Consult) 1 ea UD PRN N/A 03/12/18 09:15 04/11/18 09:14 Levofloxacin 750 mg/Prmx 150 ml @ 100 mls/hr Q2D@0900 IV 03/12/18 09:10 03/26/18 09:09 03/16/18 09:25 100 MLS/HR Albuterol/ Ipratropium (Duoneb) 3 ml Q4R PRN INH 03/13/18 09:15 04/12/18 09:14 Enteral Nutritional Formula (Boost) 1 can BIDM PO 03/15/18 17:00 04/14/18 16:59 03/16/18 16:50 1 CAN Objective Vital Signs Date Time Temp Pulse Resp B/P (MAP) Pulse Ox O2 Delivery O2 Flow Rate FiO2 03/17/18 07:48 90 Room Air 03/17/18 06:51 36.5 90 20 107/65 (79) 90 Room Air 03/17/18 00:00 Room Air 03/16/18 23:08 37.2 52 18 127/76 (93) 99 Room Air 03/16/18 16:00 95 Room Air Nasal Cannula 03/16/18 15:33 37.0 71 18 121/73 (89) 93 Room Air Physical Exam General Appearance: no apparent distress Respiratory/Chest: chest non-tender, lungs clear, normal breath sounds, no respiratory distress, no accessory muscle use Cardiovascular: regular rate, rhythm, no edema, no murmur Extremities: normal inspection, no pedal edema Laboratory Results Last 24 Hours Test 03/17/18 06:55 Prothrombin Time 29.7 SECONDS Prothromb Time International Ratio 2.9 Assessment and Plan This is an 87 year old female with a 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 of paroxysmal atrial fibrillation, CAD and hx. 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 with Keflex - presents with weakness, dysuria, hematuria Septicemia secondary to Urinary Tract Infection Obstructive Uropathy secondary to Kidney Stone leading to Acute Kidney Injury Metabolic Encephalopathy 03/17 - another blood culture from 03/12 is positive for gram negative bacilli (likely Citrobacter) - another set/two bottles from 03/12 pending - await finalization; if no growth, can d/c with Levaquin 500mg daily for 14 days of the last negative blood culture - will need SNF discharge - outpatient urology and PCP follow-up 03/16 - blood cultures negative thus far, preliminary report from 03/12, awaiting finalization - will need Levaquin for 14 days from the last negative blood culture - acute kidney injury resolved - outpatient urology follow-up - likely d/c back to [facility] 03/15 - patient is doing well, blood cultures negative from 03/12 - continue Levaquin, will need 14 days of Levaquin from last negative blood culture - MEGHAN resolved after stent placement - will need SNF discharge in 1-2 days, and outpatient urology follow-up 03/14 - mental status improved - continue Levaquin as per ID - cultures positive - repeat blood cultures pending - s/p stenting as per urology - further management as per ID, urology 03/13 - continue Levaquin and Zosyn as per ID - blood cultures are still positive - repeat blood cultures pending - s/p stenting - outpatient lithotripsy 03/12 - clinically improving after emergent stent and abx. - continue broad spectrum antibiotics - added Levaquin as per ID to cover urine culture/blood cultures - repeat blood cultures are also positive - will need to obtain further cultures, appreciate ID/urology input - creatinine improved and IV fluid stopped 03/11 - 6mm obstructing stone noted on the L ureter - patient septic with white count elevation, lactic acidosis on admission - blood cultures positive x2 - gram negative bacilli - urine culture positive for gram negative bacilli as well - s/p stenting; currently IV Zosyn - appreciate urology and ID input - creatinine on admission >2, giving IV fluids with improvement - creatinine trending down, WBC trending down, lactic acid < 2 Hx. of DVT and Paroxysmal A. Fib 03/16 - Cont. Coumadin, INR goal of 2-3, currently at 2.9, should monitor next week due to abx. use and interactions 03/13 - Coumadin, goal INR of 2-3 03/12 - adding subq heparin to Coumadin - monitor INR with goal of 2-3 03/11 - on Coumadin - supratherapeutic INR on admission - now improving Anemia - improving - unsure of underlying cause, hematuria from obstructing stone? kidney injury? - monitor H/H - monitor INR, hold Coumadin until INR therapeutic - if no improvement, will check iron panel, B12, folate CAD hx. of NSTEMI - continue statin - restart b-tayler once blood pressure improves DVT ppx - Coumadin DNR/DNI
[2018-03-17] MEDS ORDERED: THM100 PO (13:38)
[2018-03-17] MEDS ORDERED: LEVO-459 PO (13:38)
[2018-03-17] MEDS ORDERED: Enteral Nutrition Formula PO (13:38)
--- NOTE | 2018-03-17 13:44 | Discharge Instructions ---
Discharge Instructions Date of Service March 17, 2018. Admission Reason for Admission: Hypoxia,Sepsis Discharge Discharge Diagnosis / Problem: Septicemia (bacteria in blood), Infected Kidney Stone Discharge Goals Goal(s): Decrease discomfort, Improve function, Diagnostic testing, Therapeutic intervention Activity Recommendations Activity Level: Up Ad Annabel Therapies: Physical Therapy, Occupational Therapy . Additional Information Patient informed of condition: Yes Advance Directives: Yes DNR: Yes Level of Care: Acute Rehab Communicable Disease: No Prognosis: Stable Rowell Catheter: No Instructions / Follow-Up Instructions / Follow-Up To follow-up with urology in 2 weeks To follow-up with primary care physician after stay at SNF * You will be on Levaquin (antibiotic) 500mg daily for another 10 days * You should follow-up with urology regarding the kidney stone; you had a stent placed * Stay well hydrated * Urology can decide if you should stay on chronic Keflex (antibiotic) therapy; for now, hold this while using Levaquin * You should have blood work (INR, CBC, BMP) checked next week Current Hospital Diet Patient's current hospital diet: AHA Diet (Heart Healthy) Discharge Diet Recommended Diet: AHA Diet (Heart Healthy) Procedures Procedures Performed: Cystoscopy, Left Ureteral Stent Insertion ([id number]) Pending Studies Studies pending at discharge: no Laboratory Results Lipid Panel Test 12/30/17 05:40 Range/Units Triglycerides Level 180 H 0-150 mg/dl Cholesterol Level 116 0-200 mg/dl HDL Cholesterol 40 mg/dl Cholesterol/HDL Ratio 2.9 LDL Cholesterol, Calculated 40 mg/dl Medical Emergencies . Who to Call and When: Medical Emergencies: If at any time you feel your situation is an emergency, please call 911 immediately. . Non-Emergent Contact Non-Emergency issues call your: Primary Care Provider, Urologist . . "Provider Documentation" section prepared by Daniel Nath. . Core Measure Problem Core Measures: None
--- NOTE | 2018-03-17 13:47 | Discharge Summary ---
Discharge Summary Date of Service March 17, 2018. Discharge Summary Admission Date: March 10, 2018 at 11:50 Discharge Date: March 17, 2018 Discharge Disposition: [facility] facility Principal Diagnosis: Septicemia secondary to Urinary Tract Infection Obstructive Uropathy secondary to Kidney Stone leading to Acute Kidney Injury Metabolic Encephalopathy Hx. of DVT and Paroxysmal A. Fib Anemia - improving CAD Hx. of NSTEMI Medication Reconciliation New Medications: Levofloxacin (Levaquin) 500 Mg Tab 500 MG PO DAILY for 10 Days, #10 TABS Thiamine HCl (Vitamin B-1) 100 Mg Tab 200 MG PO QAM for 30 Days, #60 TAB [Enteral Nutrition Formula] () 1 CAN LIQD 1 CAN PO BIDM PRN for PATIENT REQUEST for 30 Days, #60 CAN Continued Medications: Acetaminophen (Tylenol) 325 Mg Tab 650 MG PO Q4H PRN for GENERAL DISCOMFORT MAX 3GM/APAP 24 HRS Aspirin (Aspirin EC Low Dose) 81 Mg Ectab 81 MG PO QAM Atenolol (Tenormin) 25 Mg Tab 12.5 MG PO HS, 0 Refills Atorvastatin (Lipitor) 20 Mg Tab 20 MG PO HS, TAB Cholecalciferol (Vitamin D3) 1,000 Unit Tab 2000 UNIT PO HS, 3 Refills Citalopram Hydrobromide (Citalopram Hydrobromide) 20 Mg Tab 1 TAB PO DAILY Gabapentin (Gabapentin) 100 Mg Cap 100 MG PO HS Levothyroxine Sodium (Synthroid) 25 Mcg Tab 25 MCG PO DAILY, TAB Loperamide Hcl (Loperamide Hcl) 1 Mg/5 Ml Liq 10 ML PO BID PRN for Diarrhea Mirtazapine (Remeron) 15 Mg Tab 15 MG PO HS, TAB Oxybutynin Chloride (Ditropan) 5 Mg Tab 5 MG PO BID Oxycodone/Acetaminophen 5MG/325MG (Percocet 5MG/325MG) Tab 1.5 TAB PO BID PRN for SEVERE PAIN PAIN Pantoprazole (Protonix) 40 Mg Tab 40 MG PO DAILY Tramadol (Ultram) 50 Mg Tab 50 MG PO Q4H PRN for Pain, TAB Warfarin Sod (Coumadin) 3 Mg Tab 1.5 MG PO PM Discontinued Medications: Amoxicillin (Amoxil) 500 Mg Cap 2000 MG PO UD PRN for DENTAL APPT TAKE 4 CAPS 1 HOUR PRIOR TO DENTAL APPOINTMENTS Cephalexin Monohydrate (Keflex) 250 Mg Cap 250 MG PO HS, CAP Docusate Sodium (Colace) 100 Mg Cap 100 MG PO BID Polyethylene Glycol 3350 (Miralax) 1 Pow Pow 17 GM PO QAM PRN for Constipation Admission Information HPI (per Admitting provider): Pt is 87 y/o F with PMH HTN, HLD, CAD, a-fib on Coumadin, 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 Patient states last week started with some lower back pain. Past several days with decreased appetite and decreased oral intake. States that ate very little yesterday, nothing to eat or drink today. Yesterday felt tactile fevers, generalized weakness and fatigue. Patient states some dysuria yesterday, something had any hematuria. She reports chronic urinary frequency and urinary incontinence unsure if this is increased. Followed with [facility] on 03/03/18 and out patient urodynamics were planned. Reported patient hypoxic this morning. Denies diaphoresis, N/V/D/ C, dizziness, syncope, vision changes, neck pain, CP, SOB, orthopnea, palpitations, cough, sore throat, choking, otalgia, rhinorrhea, abdominal pain, extremity edema, rashes, weight loss. Physical Exam (per Admitting): General Appearance: + pertinent finding (Moderately ill appearing, no acute distress) Head: normocephalic, atraumatic Eyes: normal inspection, PERRL, EOMI, sclerae normal ENT: hearing grossly normal, pharynx normal, + pertinent finding (Mucous membranes very dry) Neck: supple, no JVD, trachea midline Respiratory/Chest: lungs clear, normal breath sounds, no respiratory distress Cardiovascular: regular rate, rhythm, no murmur, normal peripheral pulses Abdomen/GI: normal bowel sounds, non tender, soft Back: no CVA tenderness (to percussion) Extremities/Musculoskelatal: no calf tenderness, normal capillary refill, no pedal edema, non-tender Neurologic/Psych: alert, normal mood/affect, oriented x 3 Skin: warm/dry Hospital Course This is an 87 year old female with a 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 of paroxysmal atrial fibrillation, CAD and hx. 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 with Keflex - presents with weakness, dysuria, hematuria Septicemia secondary to Urinary Tract Infection Obstructive Uropathy secondary to Kidney Stone leading to Acute Kidney Injury Metabolic Encephalopathy 03/17 - another blood culture from 03/12 is positive for gram negative bacilli (likely Citrobacter) - another set/two bottles from 03/12 pending - await finalization; if no growth, can d/c with Levaquin 500mg daily for 14 days of the last negative blood culture - will need SNF discharge - outpatient urology and PCP follow-up 03/16 - blood cultures negative thus far, preliminary report from 03/12, awaiting finalization - will need Levaquin for 14 days from the last negative blood culture - acute kidney injury resolved - outpatient urology follow-up - likely d/c back to [facility] 03/15 - patient is doing well, blood cultures negative from 03/12 - continue Levaquin, will need 14 days of Levaquin from last negative blood culture - MEGHAN resolved after stent placement - will need SNF discharge in 1-2 days, and outpatient urology follow-up 03/14 - mental status improved - continue Levaquin as per ID - cultures positive - repeat blood cultures pending - s/p stenting as per urology - further management as per ID, urology 03/13 - continue Levaquin and Zosyn as per ID - blood cultures are still positive - repeat blood cultures pending - s/p stenting - outpatient lithotripsy 03/12 - clinically improving after emergent stent and abx. - continue broad spectrum antibiotics - added Levaquin as per ID to cover urine culture/blood cultures - repeat blood cultures are also positive - will need to obtain further cultures, appreciate ID/urology input - creatinine improved and IV fluid stopped 03/11 - 6mm obstructing stone noted on the L ureter - patient septic with white count elevation, lactic acidosis on admission - blood cultures positive x2 - gram negative bacilli - urine culture positive for gram negative bacilli as well - s/p stenting; currently IV Zosyn - appreciate urology and ID input - creatinine on admission >2, giving IV fluids with improvement - creatinine trending down, WBC trending down, lactic acid < 2 Hx. of DVT and Paroxysmal A. Fib 03/16 - Cont. Coumadin, INR goal of 2-3, currently at 2.9, should monitor next week due to abx. use and interactions 03/13 - Coumadin, goal INR of 2-3 03/12 - adding subq heparin to Coumadin - monitor INR with goal of 2-3 03/11 - on Coumadin - supratherapeutic INR on admission - now improving Anemia - improving - unsure of underlying cause, hematuria from obstructing stone? kidney injury? - monitor H/H - monitor INR, hold Coumadin until INR therapeutic - if no improvement, will check iron panel, B12, folate CAD hx. of NSTEMI - continue statin - restart b-tayler once blood pressure improves DVT ppx - Coumadin DNR/DNI Total time spent on discharge = 60 minutes This includes examination of the patient, discharge planning, medication reconciliation, and communication with other providers. Discharge Instructions To follow-up with urology in 2 weeks To follow-up with primary care physician after stay at SNF * You will be on Levaquin (antibiotic) 500mg daily for another 10 days * You should follow-up with urology regarding the kidney stone; you had a stent placed * Stay well hydrated * Urology can decide if you should stay on chronic Keflex (antibiotic) therapy; for now, hold this while using Levaquin * You should have blood work (INR, CBC, BMP) checked next week
[2018-03-17 15:13] VITALS: BP 107/65; PULSE 90; TEMP 36.5; O2SAT 90
== END 2018-03-17 16:02 | DRG 871 ==
LOC: EDBD 10:17 → C.EDB 10:18 → C.MED 11:50 → ENRESERV 12:08 → C.MSICU 18:51 → ENRESERV 03-12 07:55 → C.MS2W 03-12 08:47
PROVIDERS: ADMIT Hospitalist; ATTEND Family Medicine
PROC: 0T778DZ Dilation of Left Ureter with Intraluminal Device, Via Natural or Artificial Opening Endoscopic (ICD-10-PCS; principal; 2018-03-10 19:25)
DX: A41.59 Other Gram-negative sepsis (principal); G93.41 Metabolic encephalopathy; N39.0 Urinary tract infection, site not specified; N17.9 Acute kidney failure, unspecified; N20.1 Calculus of ureter; N13.6 Pyonephrosis; I48.0 Paroxysmal atrial fibrillation; I25.10 Atherosclerotic heart disease of native coronary artery without angina pectoris; E86.0 Dehydration; R65.20 Severe sepsis without septic shock; E78.5 Hyperlipidemia, unspecified; I10 Essential (primary) hypertension; E03.9 Hypothyroidism, unspecified; G43.909 Migraine, unspecified, not intractable, without status migrainosus; Z96.661 Presence of right artificial ankle joint; Z79.82 Long term (current) use of aspirin; Z79.01 Long term (current) use of anticoagulants; Z87.440 Personal history of urinary (tract) infections; K21.9 Gastro-esophageal reflux disease without esophagitis; Z96.649 Presence of unspecified artificial hip joint; Z83.3 Family history of diabetes mellitus; Z80.0 Family history of malignant neoplasm of digestive organs; N32.81 Overactive bladder; I25.2 Old myocardial infarction

== ENCOUNTER → 2018-03-10 | Outpatient (CLI) | payer BC ==
[~2018-03-10] MED LIST changes: +CMD3 PO; +DTR/5 PO; +LEVO25TA PO; +LOPE1LIQ15 PO; +NRN100 PO
[2018-03-10 13:23] LABS: INR 5.3 (0.9-1.1)
== END | disposition home or self-care (01) ==
LOC: C.LABWYN 10:05
PROVIDERS: ATTEND Internal Medicine
DX: Z51.81 Encounter for therapeutic drug level monitoring (principal); I48.91 Unspecified atrial fibrillation

== ENCOUNTER → 2018-05-20 | Outpatient (CLI) | payer BC ==
[2018-05-19 13:05] LABS: BASO % 0.4 %; BASO ABS # 0.02 K/uL (0-0.2); EOS % 6.1 %; EOS ABS # 0.32 K/uL (0-0.5); HEMATOCRIT 34.8 % (37-47); HEMOGLOBIN 10.9 g/dL (12.0-16.0); LYMPH % 32.4 %; MEAN CELL VOLUME 100.6 fL (80-100); MEAN CORPUSCULAR HEMOGLOBIN 31.5 pg (25-34); MEAN CORPUSCULAR HGB CONC 31.3 g/dl (32-36); MEAN PLATELET VOLUME 9.7 fL (7.4-10.4); MONO ABS # 0.42 K/uL (0.11-0.59); NEUT % 53.1 %; NEUT ABS # 2.78 K/uL (1.4-6.5); PLATELET COUNT 214 K/uL (130-400); RED CELL DISTRIBUTION WIDTH SD 66.1 fL (36.4-46.3); WHITE BLOOD COUNT 5.24 K/uL (4.8-10.8)
[2018-05-19 13:06] LABS: INR 3.5 (0.9-1.1)
[2018-05-19 13:34] LABS: BLOOD UREA NITROGEN 13 mg/dl (7-18); CARBON DIOXIDE 25 mmol/L (21-32); CREATININE 0.66 mg/dl (0.60-1.20); POTASSIUM 3.6 mmol/L (3.5-5.1); SODIUM 146 mmol/L (136-145)
[~2018-05-20] MED LIST changes: -DOCU-94 PO; +DTR/5 PO; +FERR1TAB13 PO; -KFL/250 PO; +LEVO25TA PO; +LOPE1LIQ15 PO; -MECL1TAB40 PO; +NRN100 PO; -POLY335019 PO; +TCMD2 PO; +THIA100T27 PO; -TRAM-10 PO; -WARF3TAB PO
== END | disposition home or self-care (01) ==
LOC: C.LABWYN 16:44
PROVIDERS: ATTEND Urology
DX: N20.0 Calculus of kidney (principal); I48.91 Unspecified atrial fibrillation

== ENCOUNTER → 2018-05-26 | Outpatient (CLI) | payer BC ==
[2018-05-26 13:26] LABS: INR 1.8 (0.9-1.1)
== END | disposition home or self-care (01) ==
LOC: C.LABWYN 15:29
PROVIDERS: ATTEND Pharmacist Pharmacotherapy
DX: I48.91 Unspecified atrial fibrillation (principal)

== ENCOUNTER → 2018-05-27 | Outpatient (CLI) | payer BC | END | disposition home or self-care (01) | LOC: C.LABWYN 09:59 | PROVIDERS: ATTEND Urology | DX: N39.0 Urinary tract infection, site not specified (principal); N20.0 Calculus of kidney ==

== ENCOUNTER → 2018-06-04 | Outpatient (CLI) | payer BC ==
[2018-06-04 12:51] LABS: INR 1.7 (0.9-1.1)
== END | disposition home or self-care (01) ==
LOC: C.LABWYN 16:25
PROVIDERS: ATTEND Pharmacist Pharmacotherapy
DX: I48.91 Unspecified atrial fibrillation (principal); Z79.01 Long term (current) use of anticoagulants

== ENCOUNTER → 2018-06-09 | Day surgery (SDC) | payer BC ==
--- NOTE | 2018-06-26 10:54 | PAT Medication Instructions ---
Service Date Jun 26, 2018. Current Home Medication List Acetaminophen (Tylenol), 650 MG PO Q4H PRN for GENERAL DISCOMFORT Amoxicillin (Amoxil), 500 MG PO UD Aspirin (Aspirin EC Low Dose), 81 MG PO QAM Atenolol (Tenormin), 12.5 MG PO HS Atorvastatin (Lipitor), 20 MG PO HS Cholecalciferol (Vitamin D3), 2,000 UNIT PO HS Citalopram Hydrobromide (Citalopram Hydrobromide), 1 TAB PO QAM Ferrous Sulfate (Kp Ferrous Sulfate), 1 TAB PO BID Gabapentin (Gabapentin), 100 MG PO HS Levothyroxine Sodium (Synthroid), 25 MCG PO QAM Loperamide Hcl (Loperamide Hcl), 10 ML PO BID PRN for Diarrhea Mirtazapine (Remeron), 15 MG PO HS Oxybutynin Chloride (Ditropan), 5 MG PO BID Oxycodone/Acetaminophen 5MG/325MG (Percocet 5MG/325MG), 1 TABLET PO Q4H PRN for Pain Pantoprazole (Protonix), 40 MG PO QAM Thiamine HCl (Vitamin B-1), 200 MG PO QAM Warfarin Sod (Coumadin), 1 TAB PO QPM Medication Instructions For Your Scheduled Surgery - Hold as per surgeons instructions: Aspirin (Aspirin EC Low Dose), 81 MG PO QAM - Hold the following medications the morning of surgery: Amoxicillin (Amoxil), 500 MG PO UD if needed for dental procedure Thiamine HCl (Vitamin B-1), 200 MG PO QAM Oxybutynin Chloride (Ditropan), 5 MG PO BID Loperamide Hcl (Loperamide Hcl), 10 ML PO BID as needed for Diarrhea Ferrous Sulfate (Kp Ferrous Sulfate), 1 TAB PO BID - Take the following medications the morning of surgery with a sip of water: OTHERWISE NOTHING TO EAT OR DRINK AFTER MIDNIGHT Levothyroxine Sodium (Synthroid), 25 MCG PO QAM Pantoprazole (Protonix), 40 MG PO QAM Oxycodone/Acetaminophen 5MG/325MG (Percocet 5MG/325MG), 1 TABLET PO Q4H as needed for Pain (UP TO 4 HOURS PRIOR TO SURGERY) Citalopram Hydrobromide (Citalopram Hydrobromide), 1 TAB PO QAM Acetaminophen (Tylenol), 650 MG PO Q4H as needed for GENERAL DISCOMFORT (UP TO 4 HOURS PRIOR TO SURGERY) - Take the following medications as scheduled the night before surgery: Oxycodone/Acetaminophen 5MG/325MG (Percocet 5MG/325MG), 1 TABLET PO Q4H as needed for Pain Oxybutynin Chloride (Ditropan), 5 MG PO BID Mirtazapine (Remeron), 15 MG PO HS Gabapentin (Gabapentin), 100 MG PO HS Loperamide Hcl (Loperamide Hcl), 10 ML PO BID as needed for Diarrhea Ferrous Sulfate (Kp Ferrous Sulfate), 1 TAB PO BID Cholecalciferol (Vitamin D3), 2,000 UNIT PO HS Atorvastatin (Lipitor), 20 MG PO HS Atenolol (Tenormin), 12.5 MG PO HS Acetaminophen (Tylenol), 650 MG PO Q4H as needed for GENERAL DISCOMFORT If you have any questions please call us at [phone] or [phone] or [phone]
== END | disposition home or self-care (01) ==
LOC: C.PAT 12:39 → EDSTATUS 07-10 07:00
PROVIDERS: ATTEND Urology
DX: N20.0 Calculus of kidney (principal)

== ENCOUNTER → 2018-06-11 | Outpatient (CLI) | payer BC ==
[2018-06-11 12:58] LABS: INR 2.9 (0.9-1.1)
== END | disposition home or self-care (01) ==
LOC: C.LABWYN 14:48
PROVIDERS: ATTEND Pharmacist Pharmacotherapy
DX: I48.91 Unspecified atrial fibrillation (principal); Z79.01 Long term (current) use of anticoagulants

== ENCOUNTER → 2018-06-22 | Outpatient (CLI) | payer BC ==
--- NOTE | 2018-06-22 12:14 | DIAGNOSTIC IMAGING REPORT ---
KUB CLINICAL HISTORY: 592.0, N20.0 RENAL CALCULUS COMPARISON STUDY: 05/29/2018 FINDINGS: There is a lumbar dextroscoliosis. Postsurgical changes are present within the lumbar spine. There is a bipolar left hip replacement. There is an indwelling left-sided nephroureteral stent. Multiple calcifications project over the left kidney consistent with calculi. The renal stone burden appears slightly diminished when compared the preceding study. There are no calcifications along the course of the left stent. There is no pathologic bowel dilatation. IMPRESSION: 1. No change in the position of the left-sided nephroureteral stent 2. Left-sided nephrolithiasis with a slightly diminished stone burden. Electronically signed by: Eliel Adkins M.D. 06/22/2018 12:13 PM Dictated Date/Time: 06/22/2018 12:11 PM
== END | disposition home or self-care (01) ==
LOC: C.RAD 11:40
PROVIDERS: ATTEND Urology
DX: N20.0 Calculus of kidney (principal); Z96.0 Presence of urogenital implants

== ENCOUNTER → 2018-06-25 | Outpatient (CLI) | payer BC ==
[2018-06-25 12:43] LABS: BASO % 0.4 %; BASO ABS # 0.02 K/uL (0-0.2); EOS % 6.9 %; EOS ABS # 0.38 K/uL (0-0.5); HEMATOCRIT 36.2 % (37-47); HEMOGLOBIN 11.5 g/dL (12.0-16.0); IG# 0.01 K/uL (0.00-0.02); LYMPH % 35.5 %; LYMPH ABS # 1.95 K/uL (1.2-3.4); MEAN CELL VOLUME 101.7 fL (80-100); MEAN CORPUSCULAR HEMOGLOBIN 32.3 pg (25-34); MEAN CORPUSCULAR HGB CONC 31.8 g/dl (32-36); MEAN PLATELET VOLUME 9.3 fL (7.4-10.4); MONO % 8.2 %; MONO ABS # 0.45 K/uL (0.11-0.59); NEUT % 48.8 %; NEUT ABS # 2.69 K/uL (1.4-6.5); PLATELET COUNT 219 K/uL (130-400); RED CELL DISTRIBUTION WIDTH CV 16.4 % (11.5-14.5); RED CELL DISTRIBUTION WIDTH SD 61.6 fL (36.4-46.3)
[2018-06-25 14:22] LABS: BLOOD UREA NITROGEN 13 mg/dl (7-18); CARBON DIOXIDE 24 mmol/L (21-32); CREATININE 0.75 mg/dl (0.60-1.20); POTASSIUM 3.5 mmol/L (3.5-5.1); SODIUM 146 mmol/L (136-145)
== END | disposition home or self-care (01) ==
LOC: C.LABPVFM 06:15
PROVIDERS: ATTEND Family Medicine
DX: N20.0 Calculus of kidney (principal)

== ENCOUNTER 2019-02-24 09:52 | Inpatient (IN) ==
[2019-02-24] MEDS ORDERED: SODIUM CHLORIDE 0.9% 500 ML IV SCH (10:15)
[2019-02-24 10:34] LABS: Basophils # (auto) 0.03 K/uL (0-0.2); Basophils % (auto) 0.2 %; Eosinophils # (auto) 0.09 K/uL (0-0.5); Eosinophils % (auto) 0.5 %; Hematocrit (blood only) 41.7 % (37-47); Hemoglobin 14.2 g/dL (12.0-16.0); Immature Granulocytes # (auto) 0.05 K/uL (0.00-0.02); Immature Granulocytes % (auto) 0.3 %; Lymphocytes # (auto) 1.14 K/uL (1.2-3.4); Lymphocytes % (auto) 6.8 %; Mean Corpuscular Hgb Conc 34.1 g/dL (32-36); Mean Platelet Volume 9.2 fL (7.4-10.4); Monocytes # (auto) 1.37 K/uL (0.11-0.59); Monocytes % (auto) 8.1 %; Neutrophils # (auto) 14.18 K/uL (1.4-6.5); Neutrophils % (auto) 84.1 %; Platelet Count 299 K/uL (130-400); RDW Coefficient of Variation 14.9 % (11.5-14.5); RDW Standard Deviation 56.8 fL (36.4-46.3); Red Blood Count 4.05 M/uL (4.2-5.4); White Blood Count 16.86 K/uL (4.8-10.8)
[2019-02-24 10:50] LABS: Alanine Aminotransferase 38 U/L (12-78); Albumin Level 2.3 gm/dl (3.4-5.0); Aspartate Aminotransferase 26 U/L (15-37); BUN Creatinine Ratio 19.9 (10-20); Blood Urea Nitrogen 21 mg/dl (7-18); Calcium 8.7 mg/dl (8.5-10.1); Carbon Dioxide 23 mmol/L (21-32); Chloride 107 mmol/L (98-107); Creatinine Clr Calc Pharmacy 31.2 ml/min; Est GFR (Non-African American) 49.2; Glucose 110 mg/dl (70-99); Potassium 3.9 mmol/L (3.5-5.1); Sodium 140 mmol/L (136-145)
--- NOTE | 2019-02-24 10:56 | XRay Report ---
XR knee LT 2V routine CLINICAL HISTORY: fall trauma. Pain. COMPARISON: None. DISCUSSION: The bones and joint spaces appear intact. There is no evidence of fracture, dislocation o r bony disease. Mild generalized degenerative change all major joint compartments. Mild osteopenia. IMPRESSION: Mild degenerative change. Osteopenia. No acute posttraumatic bony abnormality. The above report was generated using voice recognition software. It may contain grammatical, syntax or spelling errors. Electronically signed by: Ross Cabral M.D. 02/24/2019 10:55 AM
--- NOTE | 2019-02-24 10:57 | XRay Report ---
XR chest 1V portable CLINICAL HISTORY: weakness mental status change COMPARISON STUDY: 03/10/2018 FINDINGS: The bones soft tissues and hemidiaphragms are normal. The cardiomediastinal silhouette is n ormal. The lungs are clear. The pulmonary vasculature is normal. IMPRESSION: Negative chest. The above report was generated using voice recognition software. It may contain grammatical, syntax or spelling errors. Electronically signed by: Ross Cabral M.D. 02/24/2019 10:55 AM
--- NOTE | 2019-02-24 10:59 | XRay Report ---
XR hip LT 2-3V w pelvis CLINICAL HISTORY: fall trauma. Pain. COMPARISON: 08/30/2017 DISCUSSION: Stable postoperative changes consistent with a low lumbar laminectomy. Prior total left h ip arthroplasty with the prosthetic in good position. No acute posttraumatic abnormality. There is no evidence for soft tissue swelling. IMPRESSION: 1. Degenerative changes low lumbar spine and left hip as noted. 2. No acute post traumatic abnormality. The above report was generated using voice recognition software. It may contain grammatical, syntax or spelling errors. Electronically signed by: Ross Cabral M.D. 02/24/2019 10:58 AM
[2019-02-24 11:01] LABS: Albumin Globulin Ratio 0.6 (0.9-2); Alkaline Phosphatase 195 U/L (45-117); Bilirubin,Total 0.7 mg/dl (0.2-1); Creatine Kinase 104 U/L (26-192); Globulin 4.1 gm/dl (2.5-4.0); Total Protein 6.4 gm/dl (6.4-8.2); Troponin I < 0.015 ng/ml (0-0.045)
--- NOTE | 2019-02-24 11:04 | CT Scan Report ---
CT head/brain wo con CT DOSE: 936.64 mGy.cm HISTORY: Trauma. Mental status change. fall TECHNIQUE: Multiaxial CT images of the head were performed without the use of intravenous contrast. A dose lowering technique was utilized adhering to the principles of ALARA. Comparison: 05/17/2016 Findings: The paranasal sinuses and mastoid air cells are clear. The calvarium and skull base are int act. The ventricles and sulci are within normal limits. There is no mass, hematoma, midline shift, or acute infarct. Findings of moderate chronic small vessel change of aging as well as components of at rophy. Compensatory ventricular prominence unchanged from the prior exam. Impression: No acute intracranial abnormality. Chronic and age-related change. The above report was generated using voice recognition software. It may contain grammatical, syntax or spelling errors. Electronically signed by: Ross Cabral M.D. 02/24/2019 11:03 AM
--- NOTE | 2019-02-24 11:21 | CT Scan Report ---
CT cervical spine wo con CLINICAL HISTORY: 88 years-old Female with fall. Acute neck pain with confusion and weakness status post fall COMPARISON: CT head of same day TECHNIQUE: Multiple axial CT images of the cervical spine were obtained without contrast. A dose low ering technique was utilized adhering to the principles of ALARA. FINDINGS: Demineralized appearance of the bones. 2 mm anterolisthesis C3 on C4, 3 mm anterolisthesis C4 on C5 a nd 2 mm anterolisthesis C7 on T1 is likely degenerative in nature related to severe multilevel facet arthropathy. No acute fracture notified. Severe disc space narrowing with prominent spondylitic spurr ing at C6-C7. Moderate disc space narrowing at C7-T1. Multilevel uncovertebral spurring. Evaluation o f the central canal and neuroforamina is better assessed by MRI. No definite high-grade central canal stenosis. Multilevel foraminal narrowing is noted. There is no prevertebral soft tissue swelling. Calcifications noted about the bilateral carotid bulbs . Lung apices are generally clear with mild intralobular septal thickening. Advanced degenerative ольга nges noted about the temporal mandibular joints. IMPRESSION: 1. No acute cervical spine fracture or subluxation identified. 2. Multilevel degenerative changes as above. 3. Demineralized appearance of the bones. The above report was generated using voice recognition software. It may contain grammatical, syntax o r spelling errors. Electronically signed by: Bennett Hofmfan M.D. 02/24/2019 11:20 AM
[2019-02-24 11:59] LABS: Appearance Urine Cloudy (Clear); Blood Urine 3+ (Negative); Color Urine Brown; Glucose Urine UA Negative (Negative); Ketones Urine 1+ (Negative); Leukocyte Esterase Urine 3+ (Negative); Nitrite Urine Positive (Negative); Urobilinogen Urine Negative (Negative); pH Urine 8.5 (4.5-7.5)
[2019-02-24 12:11] LABS: Bilirubin Urine Negative (Negative); Ictotest Urine Negative (Negative); Protein Urine 3+ (Negative)
[2019-02-24 12:20] LABS: Bacteria Urine 4+ (Negative); RBC Urine >30 /hpf (0-4); WBC Urine >30 /hpf (0-5)
[2019-02-24] MEDS ORDERED: cefTRIAXone SODIUM 1,000 MG/50 ML BAG IV STA (12:20)
[2019-02-24] MEDS ORDERED: SODIUM CHLORIDE 0.9% 1000ML 500 ML IV ONE (12:20)
[2019-02-24 12:21] LABS: Epithelial Cell Urine >30 /lpf (0-5); Mucus Urine Present (None Prsent)
[2019-02-24] MEDS ORDERED: NYSTATIN CR 15 GM TUBE EXT ONE (12:21)
[2019-02-24] MEDS ORDERED: IOVERSOL 100ml IV PRN (14:06)
--- NOTE | 2019-02-24 14:21 | CT Scan Report ---
CT abd pelvis IV con only CLINICAL HISTORY: Generalized abdominal pain and leukocytosis. COMPARISON STUDY: March 10, 2018 TECHNIQUE: A dose lowering technique was utilized adhering to the principles of ALARA. CT DOSE: 282.35 mGy.cm FINDINGS: Lower chest: The heart is normal in size and configuration, without pericardial effusion. The lung ba ses and pleural spaces are clear. There is small hiatal hernia Liver: The contrast-enhanced liver is normal in size, contour, and attenuation. There is no intrahepa tic biliary ductal dilatation. The hepatic veins and portal veins are patent. Gallbladder: Moderately distended, similar to the preceding study. Small calculi are suspected. Spleen: Normal in size and attenuation. Pancreas: Unremarkable. Adrenal glands: Unremarkable. Kidneys: There is an 8mm right renal cyst. There is a 1 cm left renal cyst. There is a slightly dimin ished left-sided nephrogram. Multiple left renal calculi are visualized. There is left-sided hydronep hrosis. There is mild thickening and enhancement of the left renal pelvis. There is mild left-sided h ydroureter. No ureteral calculi are visualized. Bowel: There are no transition zones indicate bowel obstruction. By history the appendix is surgicall y absent. There is no acute diverticulitis. Peritoneum: There is no intraperitoneal free air or abdominal ascites. Vasculature: The abdominal aorta is normal in course and caliber. Adenopathy: None. Pelvic viscera: There is pronounced bladder wall thickening. Skeletal structures: There are postsurgical changes of a left hip arthroplasty with secondary streak artifact involving the pelvis. IMPRESSION: 1. No evidence of bowel obstruction. No evidence of free air 2. Left-sided nephrolithiasis 3. Left-sided hydronephrosis 4. Left-sided uroepithelial enhancement, likely secondary to an upper tract infection. 5. There are no ureteral calculi to explain the patient's left-sided hydronephrosis. Follow-up will b e necessary. 6. Pronounced bladder wall thickening. This may indicate a cystitis. Correlation with urinalysis is a dvocated. 7. Distended gallbladder. Suspected cholelithiasis. The degree of gallbladder distention remain simil ar to the prior study. Electronically signed by: Eliel Adkins M.D. 02/24/2019 2:20 PM
[2019-02-24] MEDS ORDERED: SODIUM CHLORIDE 0.9% 1000ML 1,000 ML IV SCH (14:35)
--- NOTE | 2019-02-24 14:59 | History & Physical Report ---
Date of Service February 24, 2019 Assessment & Plan (1) Sepsis: (2) Pyelonephritis, acute: This is a 88-year-old female who has significant past medical history of atrial fibrillation anticoagulated with warfarin, HTN, HLD, nonobstructive CAD, CKD stage III, depression, history of DVT, OAB, history of nephrolithiasis status post ESWL 07/2018, who presents to [facility] after sliding out of bed and unable to get up at assisted living. Patient met sepsis criteria per current [facility] guidelines given leukocytosis 16 K, SBP less than 100 Order Lactate, Blood culture x 2 Received 1.5L IVF along with IV rocephin while in ED Source: Pyelonephritis CT Abd/Pelvis: Revealed left-sided hydronephrosis, nephrolithiasis, uroepithelial enhancement secondary to upper tract infection with pronounced bladder wall thickening. Also evidence of distended gallbladder with suspected cholelithiasis, similar to prior study admit to med/tele continue IV rocephin, pending culture IVF 80cc/hr check lactate, blood culture x 2 consult urology Full liquid diet, advance as tolerated antiemetics pain control (3) Hydronephrosis, left: consult urology hx of nephrolithiasis in past with ESWL 07/2018 (4) Nephrolithiasis: consult urology hx of nephrolithiasis in past with ESWL 07/2018 (5) Atrial fibrillation: rate and rhythm controlled on warfarin for anticoagulation (6) CAD (coronary artery disease): No chest pain/sob BB stopped 02/22 due to low bp and pill burden monitor (7) Hypothyroidism: recently stopped levothyroxine for pill burden TSH 1.14 (8) Prolonged Q-T interval on ECG: avoid QT prolonging agents add phenergan po for nausea monitor ecg (9) Depression: continue lexapro and remeron monitor QTC (10) OAB (overactive bladder): hold oxybutnin given concurrent UTI (11) DVT prophylaxis: Await PT/INR, dose coumadin appropriately SCD/Teds Disposition: to be determined, case management consulted, currently residing [facility] Follow up: PCP Dr. Valle upon discharge Patient was seen and examined in collaboration with Dr. Brown, please see addendum Starting 02/25/19 patient will be under the care of Dr. Cassandra Banda History of Present Illness Chief Complaint: Slid out of bed this morning. Primary Care Provider: [facility] This is a 88-year-old female who has significant past medical history of atrial fibrillation anticoagulated with warfarin, HTN, HLD, nonobstructive CAD, CKD stage III, depression, history of DVT, OAB, history of nephrolithiasis status post ESWL 07/2018, who presents to [facility] after sliding out of bed and unable to get up at assisted living. [id number] at bedside. Patient resides at [facility]. She noted she slid out of bed this morning and landed on her bottom and was unable to get up. She states she sat there for approximately 1 hour before help arrived. She denies hitting head or losing consciousness. She does not recall why she slid out of bed but does remember events. Further elicits to dysuria and increased urgency and frequency with urination. [id number]-[id number] admits to patient complaining of back pain prior to arrival. Denies any recent illness, fever, chills, sweats, lightheadedness, dizziness, chest pain, shortness, cough, URI symptoms, nausea, vomiting, diarrhea, melena, hematochezia, hematuria, abdominal pain. She overall does have decreased appetite which is normal per [id number]. Was last known well when seen by family on [facility]. Patient does have history of UTI in the past which presented similarly. Eiexggis-ts-yku overall feels she has slight change in short-term memory as well as mumbling of speech. Further complains of dry mouth. She was last seen by her PCP Dr. Valle on 02/22/19 for routine follow-up. At that time patient complained of pill burden. Her levothyroxine, Toprol, atorvastatin, ASA, thiamine, vitamin D were discontinued. Allergies Allergy/AdvReac Type Severity Reaction Status Date / Time omeprazole Allergy Unknown distal Verified 02/24/19 11:13 edema-none with pantoprozole Home Medications Home Medications Medication Instructions Recorded Confirmed Type pantoprazole [Protonix] 40 mg PO QAM #0 12/27/15 02/24/19 History acetaminophen 650 mg PO Q4H PRN #0 01/08/17 02/24/19 History mirtazapine 15 mg PO HS #0 tab 01/08/17 02/24/19 History gabapentin 100 mg PO HS #0 03/10/18 02/24/19 History oxybutynin chloride 5 mg PO BID #0 03/10/18 02/24/19 History amoxicillin 500 mg PO UD #21 cap 04/08/18 02/24/19 History ferrous sulfate 325 mg PO BID 30 Days #60 tab 04/08/18 02/24/19 History oxycodone-acetaminophen 1 tab PO TID 06/26/18 02/24/19 History alendronate 70 mg PO WK 02/24/19 02/24/19 History escitalopram oxalate 20 mg PO DAILY 02/24/19 02/24/19 History warfarin 1 mg PO [id number] 02/24/19 02/24/19 History warfarin 2 mg PO WK 02/24/19 02/24/19 History Past Med/Surg History Medical History NSTEMI (non-ST elevated myocardial infarction) (Resolved) OAB (overactive bladder) (Chronic) History of DVT (deep vein thrombosis) (Chronic) HTN (hypertension) (Chronic) Atrial fibrillation (Chronic) Osteoarthritis (Chronic) Sciatica (Chronic) Chronic pain (Chronic) Nephrolithiasis (Chronic) Depression (Chronic) Anxiety (Chronic) Hypothyroidism (Chronic) CAD (coronary artery disease) (Chronic) Atrial fibrillation GERD (gastroesophageal reflux disease) HLD (hyperlipidemia) HTN (hypertension) History of DVT (deep vein thrombosis) Migraines UTI (urinary tract infection) Surgical History History of lumbar surgery (Chronic) History of total hip arthroplasty (Chronic) LEFT History of total knee replacement (Chronic) RIGHT H/O lithotripsy (Chronic) 05/29/18. LMA #4. History of cataract surgery (Chronic) History of appendectomy (Chronic) H/O total hip arthroplasty (Chronic) Family History Mother , 70 Pancreatic cancer Father Coronary heart disease Social History Preferred Language: Frisian Communication Ability: Effective Communication Ability Comment: [facility] [employer] Required: No Beliefs That Will Affect Care: None Current Living Situation: Other Current Living Situation Comment: [facility] Other Information That Helps Us Care for You: No Feels Safe at Home: Yes Safety Concerns: Feels Safe At This Time Smoking Status: Never smoker Do You Dip or Chew Tobacco: No Hx Alcohol Use: No Hx Substance Use: No Review of Systems Review of Systems: at least ten systems were reviewed and negative except as indicated in HPI above. Physical Exam Physical Exam: Gen: WD/WN, elderly, female, NAD, sitting up in bed, pleasant, conversing easily, has foul urine odor Head: Normocephalic, Atraumatic Eyes: Sclera normal, no conjunctival injection, PERRLA, EOMI ENT: Gross hearing intact, normal pharynx, mucous membranes dry Neck: supple, no adenopathy, No JVD, no bruit, Resp: Clear to auscultation b/l, no wheeze, rales, rhonchi. Normal insp/exp effort, no accessory muscle use CV: Regular rate, regular rhythm, 2/6 FARZAD noted RUSB, no rub, gallop, or ectopy Abd: +BS x 4, soft, nontender, nondistended Musculoskeletal: moves extremities active rom x 4, strength intact, good greens planter strength Extremities: No edema bilaterally Skin: warm, moist, no rash, negative turgor, cap refill < 2sec Neuro: Alert and oriented x 4 to self, place, year, president, speech normal, good mood/affect, cran nerve 2-12 intact grossly : deferred Results & Data Vital Signs (Past 12 Hours) Vital Signs Temp Pulse Pulse Resp BP BP Pulse Ox 02/24/19 13:00 84 18 97/65 L 02/24/19 12:31 86 24 108/58 L 02/24/19 12:01 90 21 101/56 L 95 02/24/19 11:31 98 H 19 121/54 L 97 02/24/19 11:17 90 20 108/62 96 02/24/19 10:38 101 H 20 106/70 94 02/24/19 10:30 99 H 20 94 02/24/19 09:58 36.9 C 105 H 18 117/70 98 Laboratory Results Short CBC 02/24/19 02/24/19 Range/Units 10:19 10:19 WBC 16.86 H (4.8-10.8) K/uL Hgb 14.2 (12.0-16.0) g/dL Hct 41.7 (37-47) % Plt Count 299 (130-400) K/uL INR Cancelled BMP 02/24/19 10:19 Sodium 140 Potassium 3.9 Chloride 107 Carbon Dioxide 23 BUN 21 H Creatinine 1.03 Glucose 110 H Calcium 8.7 Cardiac Enzymes 02/24/19 Range/Units 10:19 Total Creatine Kinase 104 (26-192) U/L Troponin I < 0.015 (0-0.045) ng/ml Liver Function 02/24/19 Range/Units 10:19 Total Bilirubin 0.7 (0.2-1) mg/dl AST 26 (15-37) U/L ALT 38 (12-78) U/L Alkaline Phosphatase 195 H (45-117) U/L Albumin 2.3 L (3.4-5.0) gm/dl Urine 02/24/19 Range/Units 11:35 Urine Color Brown Urine Appearance Cloudy H (Clear) Urine pH 8.5 H (4.5-7.5) Ur Specific [place] 1.020 (1.000-1.030) Urine Protein 3+ H (Negative) Urine Glucose (UA) Negative (Negative) Diagnostic Findings CT Abd/Pelvis: IMPRESSION: 1. No evidence of bowel obstruction. No evidence of free air 2. Left-sided nephrolithiasis 3. Left-sided hydronephrosis 4. Left-sided uroepithelial enhancement, likely secondary to an upper tract infection. 5. There are no ureteral calculi to explain the patient's left-sided hydronephrosis. Follow-up will be necessary. 6. Pronounced bladder wall thickening. This may indicate a cystitis. Correlation with urinalysis is advocated. 7. Distended gallbladder. Suspected cholelithiasis. The degree of gallbladder distention remain similar to the prior study. Knee Xray: IMPRESSION: Mild degenerative change. Osteopenia. No acute posttraumatic bony abnormality. Hip/pelvis xray: IMPRESSION: 1. Degenerative changes low lumbar spine and left hip as noted. 2. No acute post traumatic abnormality. Head CT: Impression: No acute intracranial abnormality. Chronic and age-related change. Cspine CT: IMPRESSION: 1. No acute cervical spine fracture or subluxation identified. 2. Multilevel degenerative changes as above. 3. Demineralized appearance of the bones. Medications Administered Ioversol (Optiray 320 100ml) 94 ml IV ONCE PRN PRN Reason: Interaction Checking Stop: 02/28/19 14:05 Last Admin: 02/24/19 14:07 Dose: 94 ml Documented by: [id number] Discontinued Medications Sodium Chloride (Nss) 500 mls @ 999 mls/hr IV .Q31M YASHIRA Stop: 02/24/19 10:45 Last Infusion: 02/24/19 11:48 Dose: 0 mls/hr Documented by: [id number] Admin: 02/24/19 10:43 Dose: 999 mls/hr Documented by: [id number] Ceftriaxone Sodium (Rocephin) 1,000 mg in 50 mls @ 100 mls/hr IV NOW STA Stop: 02/24/19 12:49 Last Infusion: 02/24/19 13:08 Dose: 0 mls/hr Documented by: [id number] Admin: 02/24/19 12:28 Dose: 100 mls/hr Documented by: [id number] Sodium Chloride (Nss 1000ml) 500 mls @ 999 mls/hr IV .Q31M ONE Stop: 02/24/19 12:50 Last Infusion: 02/24/19 13:08 Dose: 0 mls/hr Documented by: [id number] Admin: 02/24/19 12:28 Dose: 999 mls/hr Documented by: [id number] Nystatin (Nystatin) 1 appln EXT ONE ONE Stop: 02/24/19 12:22 Last Admin: 02/24/19 12:38 Dose: 1 appln Documented by: [id number] ECG Rate (beats per minute): 101 Rhythm: sinus tachycardia Findings: + nonspecific-ST abn and + prolonged QT (QTC 539) Additional Comments: poor ecg quality will repeat Code Status & VTE Plan Code Status Full Code VTE Prophylaxis Plan VTE Prophylaxis will be ordered: Yes Supervising Physician Co-Signing Physician Notes I have seen and examined the patient and have discussed the case with the provider above. I agree with the assessment and plan as stated with the following exceptions. 88 yo F brought to the ER after a "slide" fall to the ground where she was unable to get up for approximately one hour. Workup in ER revealed a UTI and evidence of involvement to the level of the kidneys. Exam reveals hemodnamic stability, an elderly woman in no acute distress who is answering questions appropriately, abdomen is soft and nondistended with no tenderness and no CVA tenderness noted. Agree with plan as stated above. DO Kevin (1) CAD (coronary artery disease) Associated angina: without angina Coronary Disease-Associated Artery/Lesion type: [place] artery [place] vs. transplanted heart: [place] heart Qualified Code(s): I25.10 - Atherosclerotic heart disease of [place] coronary artery without angina pectoris (2) Atrial fibrillation Atrial fibrillation type: paroxysmal Qualified Code(s): I48.0 - Paroxysmal atrial fibrillation (3) Depression Depression Type: unspecified Qualified Code(s): F32.9 - Major depressive disorder, single episode, unspecified (4) Hypothyroidism Hypothyroidism type: unspecified Qualified Code(s): E03.9 - Hypothyroidism, unspecified (5) Sepsis Sepsis type: sepsis due to unspecified organism Qualified Code(s): A41.9 - Sepsis, unspecified organism
[2019-02-24] MEDS ORDERED: ALUMINUM/MAGNESIUM SUSP 30 ML UDC PO PRN (16:46)
[2019-02-24] MEDS ORDERED: ACETAMINOPHEN 325 MG TAB PO PRN (16:46)
[2019-02-24] MEDS ORDERED: POLYETHYLENE (MIRALAX) 17 GM PACK PO PRN (16:46)
[2019-02-24] MEDS ORDERED: MAGNESIUM HYDROXIDE SUSP 30 ML UDC PO PRN (16:46)
[2019-02-24] MEDS ORDERED: PROMETHAZINE HCL 25 MG TAB PO PRN (16:46)
--- NOTE | 2019-02-24 18:10 | Emergency Department Note ---
Entered by Agustina Tyler acting as a scribe for History of Present Illness General Chief complaint: Confusion Source: patient and other (nursing staff) Limitations: altered mental status History of Present Illness Provider complaint: confusion Onset (ago): hour(s) (today) Location: head Quality: + other (confusion) Associated symptoms: + other ( knee pain, abdominal pain) The patient is an 88 year old female who presents to the Emergency Department with complaints of confusion today. The patient states that she slid off the bed and reports having knee pain. She reports a history of a knee replacement. She does report having abdominal pain but states that she has to urinate. Limited HPI secondary to AMS. Per nursing staff, the patient has been more confused over the last 2 days. Nursing staff states that the patient's lips were blue this morning. Per nursing staff, the patient fell off the bed this morning and then had knee pain. Nursing staff states that the patient may have been on the floor for an hour. Per nursing staff, the patient is from [facility]. Home Medications Home Medications Medication Instructions Recorded Confirmed Type pantoprazole [Protonix] 40 mg PO QAM #0 12/27/15 02/24/19 History acetaminophen 650 mg PO Q4H PRN #0 01/08/17 02/24/19 History mirtazapine 15 mg PO HS #0 tab 01/08/17 02/24/19 History gabapentin 100 mg PO HS #0 03/10/18 02/24/19 History oxybutynin chloride 5 mg PO BID #0 03/10/18 02/24/19 History amoxicillin 500 mg PO UD #21 cap 04/08/18 02/24/19 History ferrous sulfate 325 mg PO BID 30 Days #60 tab 04/08/18 02/24/19 History oxycodone-acetaminophen 1 tab PO TID 06/26/18 02/24/19 History alendronate 70 mg PO WK 02/24/19 02/24/19 History escitalopram oxalate 20 mg PO DAILY 02/24/19 02/24/19 History warfarin 1 mg PO [id number] 02/24/19 02/24/19 History warfarin 2 mg PO WK 02/24/19 02/24/19 History Allergies Allergy/AdvReac Type Severity Reaction Status Date / Time omeprazole Allergy Unknown distal Verified 02/24/19 11:13 edema-none with pantoprozole Past Med/Surg History Medical History NSTEMI (non-ST elevated myocardial infarction) (Resolved) OAB (overactive bladder) (Chronic) History of DVT (deep vein thrombosis) (Chronic) HTN (hypertension) (Chronic) Atrial fibrillation (Chronic) Osteoarthritis (Chronic) Sciatica (Chronic) Chronic pain (Chronic) Nephrolithiasis (Chronic) Depression (Chronic) Anxiety (Chronic) Hypothyroidism (Chronic) CAD (coronary artery disease) (Chronic) Atrial fibrillation GERD (gastroesophageal reflux disease) HLD (hyperlipidemia) HTN (hypertension) History of DVT (deep vein thrombosis) Migraines UTI (urinary tract infection) Surgical History History of lumbar surgery (Chronic) History of total hip arthroplasty (Chronic) LEFT History of total knee replacement (Chronic) RIGHT H/O lithotripsy (Chronic) 05/29/18. LMA #4. History of cataract surgery (Chronic) History of appendectomy (Chronic) H/O total hip arthroplasty (Chronic) Family History Mother , 70 Pancreatic cancer Father Coronary heart disease Social History Preferred Language: Pashto Communication Ability: Effective Communication Ability Comment: [facility] [employer] Required: No Beliefs That Will Affect Care: None Current Living Situation: Other Current Living Situation Comment: [facility] Other Information That Helps Us Care for You: No Feels Safe at Home: Yes Safety Concerns: Feels Safe At This Time Smoking Status: Never smoker Do You Dip or Chew Tobacco: No Hx Alcohol Use: No Hx Substance Use: No Review of Systems Limited ROS secondary to AMS. Physical Exam Vital Signs Vital Signs - 24 hr 02/24/19 09:58 02/24/19 10:30 02/24/19 10:38 Temperature 36.9 C Temperature Source Oral Sepsis Recent Fever Within 48 Hours No Sepsis Action Taken by Nursing No Action Required Pulse Rate 105 H 99 H Pulse Rate [Apical] 101 H Pulse Rate [Left Finger] Pulse Rate from SpO2 Sensor Pulse Rhythm Regular Regular Pulse Rhythm [Apical] Regular Pulse Strength Normal Pulse Strength [Apical] Normal Respiratory Rate 18 20 20 Respiratory Effort / Characteristics Non-Labored Spontaneous Non-Labored Respiratory Depth Normal Normal Respiratory Pattern Regular Regular Blood Pressure 117/70 Blood Pressure [Left Arm] Blood Pressure [Right Arm] 106/70 Blood Pressure Mean 85 Blood Pressure Mean [Left Arm] Blood Pressure Mean [Right Arm] 82 Blood Pressure Position Lying Blood Pressure Position [Left Arm] Blood Pressure Position [Right Arm] Sitting Pulse Oximetry 98 94 94 Oxygen Delivery Method Room Air Room Air Room Air 02/24/19 11:17 02/24/19 11:31 02/24/19 12:01 Temperature Temperature Source Sepsis Recent Fever Within 48 Hours Sepsis Action Taken by Nursing Pulse Rate 90 98 H 90 Pulse Rate [Apical] Pulse Rate [Left Finger] Pulse Rate from SpO2 Sensor 88 97 H Pulse Rhythm Pulse Rhythm [Apical] Pulse Strength Pulse Strength [Apical] Respiratory Rate 20 19 21 Respiratory Effort / Characteristics Respiratory Depth Respiratory Pattern Blood Pressure 108/62 121/54 L 101/56 L Blood Pressure [Left Arm] Blood Pressure [Right Arm] Blood Pressure Mean 77 76 71 Blood Pressure Mean [Left Arm] Blood Pressure Mean [Right Arm] Blood Pressure Position Blood Pressure Position [Left Arm] Blood Pressure Position [Right Arm] Pulse Oximetry 96 97 95 Oxygen Delivery Method Room Air Room Air Room Air 02/24/19 12:31 02/24/19 13:00 02/24/19 13:30 Temperature Temperature Source Sepsis Recent Fever Within 48 Hours Sepsis Action Taken by Nursing Pulse Rate 86 84 78 Pulse Rate [Apical] Pulse Rate [Left Finger] Pulse Rate from SpO2 Sensor Pulse Rhythm Pulse Rhythm [Apical] Pulse Strength Pulse Strength [Apical] Respiratory Rate 24 18 15 Respiratory Effort / Characteristics Respiratory Depth Respiratory Pattern Blood Pressure 108/58 L 97/65 L 104/57 L Blood Pressure [Left Arm] Blood Pressure [Right Arm] Blood Pressure Mean 74 75 72 Blood Pressure Mean [Left Arm] Blood Pressure Mean [Right Arm] Blood Pressure Position Blood Pressure Position [Left Arm] Blood Pressure Position [Right Arm] Pulse Oximetry Oxygen Delivery Method 02/24/19 14:30 02/24/19 15:00 02/24/19 15:31 Temperature Temperature Source Sepsis Recent Fever Within 48 Hours Sepsis Action Taken by Nursing Pulse Rate 90 78 88 Pulse Rate [Apical] Pulse Rate [Left Finger] Pulse Rate from SpO2 Sensor Pulse Rhythm Pulse Rhythm [Apical] Pulse Strength Pulse Strength [Apical] Respiratory Rate 24 26 H 16 Respiratory Effort / Characteristics Respiratory Depth Respiratory Pattern Blood Pressure 93/57 L Blood Pressure [Left Arm] Blood Pressure [Right Arm] Blood Pressure Mean 69 Blood Pressure Mean [Left Arm] Blood Pressure Mean [Right Arm] Blood Pressure Position Blood Pressure Position [Left Arm] Blood Pressure Position [Right Arm] Pulse Oximetry Oxygen Delivery Method 02/24/19 15:44 02/24/19 16:00 02/24/19 16:46 Temperature 36.8 C Temperature Source Oral Sepsis Recent Fever Within 48 Hours Sepsis Action Taken by Nursing Pulse Rate 92 H Pulse Rate [Apical] 73 Pulse Rate [Left Finger] Pulse Rate from SpO2 Sensor Pulse Rhythm Pulse Rhythm [Apical] Pulse Strength Pulse Strength [Apical] Respiratory Rate 22 16 Respiratory Effort / Characteristics Non-Labored Spontaneous Respiratory Depth Normal Respiratory Pattern Blood Pressure 117/64 Blood Pressure [Left Arm] Blood Pressure [Right Arm] 113/68 Blood Pressure Mean 81 Blood Pressure Mean [Left Arm] Blood Pressure Mean [Right Arm] 83 Blood Pressure Position Blood Pressure Position [Left Arm] Blood Pressure Position [Right Arm] Lying Pulse Oximetry 95 90 Oxygen Delivery Method Room Air Room Air Room Air 02/24/19 20:08 02/24/19 23:08 02/25/19 00:00 Temperature 36.9 C 37.1 C Temperature Source Oral Oral Sepsis Recent Fever Within 48 Hours Sepsis Action Taken by Nursing Pulse Rate 86 Pulse Rate [Apical] 75 87 Pulse Rate [Left Finger] Pulse Rate from SpO2 Sensor Pulse Rhythm Pulse Rhythm [Apical] Pulse Strength Pulse Strength [Apical] Respiratory Rate 18 18 Respiratory Effort / Characteristics Non-Labored Spontaneous Respiratory Depth Normal Respiratory Pattern Regular Blood Pressure Blood Pressure [Left Arm] 91/52 L Blood Pressure [Right Arm] 109/70 Blood Pressure Mean Blood Pressure Mean [Left Arm] 65 Blood Pressure Mean [Right Arm] 83 Blood Pressure Position Blood Pressure Position [Left Arm] Lying Blood Pressure Position [Right Arm] Left Lateral Pulse Oximetry 96 92 Oxygen Delivery Method Room Air Room Air Room Air 02/25/19 03:46 Temperature 36.1 C L Temperature Source Axillary Sepsis Recent Fever Within 48 Hours Sepsis Action Taken by Nursing Pulse Rate Pulse Rate [Apical] Pulse Rate [Left Finger] 84 Pulse Rate from SpO2 Sensor Pulse Rhythm Pulse Rhythm [Apical] Pulse Strength Pulse Strength [Apical] Respiratory Rate 18 Respiratory Effort / Characteristics Respiratory Depth Respiratory Pattern Blood Pressure Blood Pressure [Left Arm] Blood Pressure [Right Arm] 131/50 L Blood Pressure Mean Blood Pressure Mean [Left Arm] Blood Pressure Mean [Right Arm] 77 Blood Pressure Position Blood Pressure Position [Left Arm] Blood Pressure Position [Right Arm] Lying Pulse Oximetry 96 Oxygen Delivery Method Room Air GENERAL: Mildly anxious appearing but overall comfortable. EYES: The conjunctivae are clear. The pupils are round and reactive. EARS, NOSE, MOUTH AND THROAT: The nose is without any evidence of any deformity. Mucous membranes are dry.Tongue is midline NECK: The neck is nontender and supple. RESPIRATORY: Normal respiratory effort is noted. There is no evidence of wheezing rhonchi or rales to auscultation. CARDIOVASCULAR: Regular rate and rhythm noted. There no murmurs rubs or gallops normal S1 normal S2 GASTROINTESTINAL: The abdomen is soft. Bowel sounds are present in all quadrants. Abdomen is nontender. Abdomen is mildly distended. No guarding or rigidity. BACK: No midline tenderness or or step-off noted range of motion in flexion extension as well as rotation no signs of muscle spasm noted. MUSCULOSKELETAL/EXTREMITIES: There is no evidence of gross deformity. Full range of motion is noted in the shoulders. Tenderness to palpation of the left knee. Range of motion elicits pain. Slight shortening of the left leg compared to the right. SKIN: There is no obvious evidence of any rash. There are no petechiae, pallor or cyanosis noted. No pedal edema. Abrasion on the left [place]. NEUROLOGIC: Patient is awake and oriented to person and place, but not time. Patient is aware of situation. Course 0959: The patient was evaluated in room A11B. A history and physical were performe.d 1338: I updated the patient and reevaluated her. 1346: I discussed the patient's case with Hilda Rojas who will evaluate the patient for further management. Consultations Consultation #1: Hilda Rojas Time: 13:45 Administered Medications Ferrous Sulfate (Feosol) 325 mg PO BID YASHIRA Stop: 03/26/19 20:59 Last Admin: 02/24/19 21:21 Dose: 325 mg Documented by: [id number] Gabapentin (Neurontin) 100 mg PO HS YASHIRA Stop: 03/26/19 20:59 Last Admin: 02/24/19 21:22 Dose: 100 mg Documented by: [id number] Mirtazapine (Remeron) 15 mg PO HS YASHIRA Stop: 03/26/19 20:59 Last Admin: 02/24/19 21:21 Dose: 15 mg Documented by: [id number] Oxycodone/Acetaminophen (Percocet 5mg/325mg) 1 tab PO TID YASHIRA Stop: 03/10/19 20:59 Last Admin: 02/24/19 21:21 Dose: 1 tab Documented by: [id number] Discontinued Medications Sodium Chloride (Nss) 500 mls @ 999 mls/hr IV .Q31M YASHIRA Stop: 02/24/19 10:45 Last Infusion: 02/24/19 11:48 Dose: 0 mls/hr Documented by: [id number] Admin: 02/24/19 10:43 Dose: 999 mls/hr Documented by: [id number] Ceftriaxone Sodium (Rocephin) 1,000 mg in 50 mls @ 100 mls/hr IV NOW STA Stop: 02/24/19 12:49 Last Infusion: 02/24/19 13:08 Dose: 0 mls/hr Documented by: [id number] Admin: 02/24/19 12:28 Dose: 100 mls/hr Documented by: [id number] Sodium Chloride (Nss 1000ml) 500 mls @ 999 mls/hr IV .Q31M ONE Stop: 02/24/19 12:50 Last Infusion: 02/24/19 13:08 Dose: 0 mls/hr Documented by: [id number] Admin: 02/24/19 12:28 Dose: 999 mls/hr Documented by: [id number] Sodium Chloride (Nss 1000ml) 1,000 mls @ 80 mls/hr IV .[id number] [facility] Stop: 02/25/19 03:04 Last Infusion: 02/25/19 05:40 Dose: 0 mls/hr Documented by: [id number] Admin: 02/24/19 17:10 Dose: 80 mls/hr Documented by: [id number] Ioversol (Optiray 320 100ml) 94 ml IV ONCE PRN PRN Reason: Interaction Checking Stop: 02/28/19 14:05 Last Admin: 02/24/19 14:07 Dose: 94 ml Documented by: [id number] Nystatin (Nystatin) 1 appln EXT ONE ONE Stop: 02/24/19 12:22 Last Admin: 02/24/19 12:38 Dose: 1 appln Documented by: [id number] Phytonadione (Mephyton) 2.5 mg PO NOW ONE Stop: 02/24/19 20:01 Last Admin: 02/24/19 21:20 Dose: 2.5 mg Documented by: [id number] Medical Decision Making Differential Diagnosis Differential includes acute coronary syndrome, myocardial infarction, CVA, TIA, anemia, infection, pneumonia, UTI, pyelonephritis, poor nutrition, dehydration, electrolyte disturbance,hypoglycemia. Medical Records Attestation: I reviewed the patient's medical records. Home Medications Current Medication List: was personally reviewed by me Laboratory Data Attestation: I reviewed the patient's lab results. Result diagrams: 02/25/19 06:09 02/25/19 06:09 Lab Results 02/24/19 02/24/19 02/24/19 Range/Units 10:06 10:19 10:19 WBC 16.86 H (4.8-10.8) K/uL RBC 4.05 L (4.2-5.4) M/uL Hgb 14.2 (12.0-16.0) g/dL Hct 41.7 (37-47) % MCV 103.0 H (80-100) fL MCH 35.1 H (25-34) pg MCHC 34.1 (32-36) g/dL RDW Std Deviation 56.8 H (36.4-46.3) fL RDW Coeff of Demetrio 14.9 H (11.5-14.5) % Plt Count 299 (130-400) K/uL MPV 9.2 (7.4-10.4) fL Immature Gran % (Auto) 0.3 % Neut % (Auto) 84.1 % Lymph % (Auto) 6.8 % [place] % (Auto) 8.1 % Eos % (Auto) 0.5 % Baso % (Auto) 0.2 % Immature Gran # (Auto) 0.05 H (0.00-0.02) K/uL Neut # (Auto) 14.18 H (1.4-6.5) K/uL Lymph # (Auto) 1.14 L (1.2-3.4) K/uL [place] # (Auto) 1.37 H (0.11-0.59) K/uL Eos # (Auto) 0.09 (0-0.5) K/uL Baso # (Auto) 0.03 (0-0.2) K/uL PT Cancelled INR Cancelled APTT Cancelled PTT Ratio Cancelled Sodium (136-145) mmol/L Potassium (3.5-5.1) mmol/L Chloride (98-107) mmol/L Carbon Dioxide (21-32) mmol/L Anion Gap (3-11) BUN (7-18) mg/dl Creatinine (0.6-1.2) mg/dl Est Cr Clr Drug Dosing ml/min Est GFR ( Amer) Est GFR (Non-Af Amer) BUN/Creatinine Ratio (10-20) Glucose (70-99) mg/dl POC Glucose 129 H (70-99) Lactate (0.4-2.0) mmol/L Calcium (8.5-10.1) mg/dl Magnesium (1.8-2.4) mg/dl Total Bilirubin (0.2-1) mg/dl AST (15-37) U/L ALT (12-78) U/L Alkaline Phosphatase (45-117) U/L Total Creatine Kinase (26-192) U/L Troponin I (0-0.045) ng/ml Total Protein (6.4-8.2) gm/dl Albumin (3.4-5.0) gm/dl Globulin (2.5-4.0) gm/dl Albumin/Globulin Ratio (0.9-2) TSH (0.300-4.500) uIu/ml Urine Color Urine Appearance (Clear) Urine pH (4.5-7.5) Ur Specific [place] (1.000-1.030) Urine Protein (Negative) Urine Glucose (UA) (Negative) Urine Ketones (Negative) Urine Blood (Negative) Urine Nitrite (Negative) Urine Bilirubin (Negative) Urine Urobilinogen (Negative) Ur Leukocyte Esterase (Negative) Urine RBC (0-4) /hpf Urine WBC (0-5) /hpf Ur Epithelial Cells (0-5) /lpf Urine Bacteria (Negative) Urine Mucus (None Prsent) 02/24/19 02/24/19 02/24/19 Range/Units 10:19 11:35 18:20 WBC (4.8-10.8) K/uL RBC (4.2-5.4) M/uL Hgb (12.0-16.0) g/dL Hct (37-47) % MCV (80-100) fL MCH (25-34) pg MCHC (32-36) g/dL RDW Std Deviation (36.4-46.3) fL RDW Coeff of Demetrio (11.5-14.5) % Plt Count (130-400) K/uL MPV (7.4-10.4) fL Immature Gran % (Auto) % Neut % (Auto) % Lymph % (Auto) % [place] % (Auto) % Eos % (Auto) % Baso % (Auto) % Immature Gran # (Auto) (0.00-0.02) K/uL Neut # (Auto) (1.4-6.5) K/uL Lymph # (Auto) (1.2-3.4) K/uL [place] # (Auto) (0.11-0.59) K/uL Eos # (Auto) (0-0.5) K/uL Baso # (Auto) (0-0.2) K/uL PT 69.6 H INR 7.9 H* APTT PTT Ratio Sodium 140 (136-145) mmol/L Potassium 3.9 (3.5-5.1) mmol/L Chloride 107 (98-107) mmol/L Carbon Dioxide 23 (21-32) mmol/L Anion Gap 11.0 (3-11) BUN 21 H (7-18) mg/dl Creatinine 1.03 (0.6-1.2) mg/dl Est Cr Clr Drug Dosing 31.2 ml/min Est GFR ( Amer) 57.0 Est GFR (Non-Af Amer) 49.2 BUN/Creatinine Ratio 19.9 (10-20) Glucose 110 H (70-99) mg/dl POC Glucose (70-99) Lactate (0.4-2.0) mmol/L Calcium 8.7 (8.5-10.1) mg/dl Magnesium 2.0 (1.8-2.4) mg/dl Total Bilirubin 0.7 (0.2-1) mg/dl AST 26 (15-37) U/L ALT 38 (12-78) U/L Alkaline Phosphatase 195 H (45-117) U/L Total Creatine Kinase 104 (26-192) U/L Troponin I < 0.015 (0-0.045) ng/ml Total Protein 6.4 (6.4-8.2) gm/dl Albumin 2.3 L (3.4-5.0) gm/dl Globulin 4.1 H (2.5-4.0) gm/dl Albumin/Globulin Ratio 0.6 L (0.9-2) TSH 1.140 (0.300-4.500) uIu/ml Urine Color Brown Urine Appearance Cloudy H (Clear) Urine pH 8.5 H (4.5-7.5) Ur Specific [place] 1.020 (1.000-1.030) Urine Protein 3+ H (Negative) Urine Glucose (UA) Negative (Negative) Urine Ketones 1+ H (Negative) Urine Blood 3+ H (Negative) Urine Nitrite Positive H (Negative) Urine Bilirubin Negative (Negative) Urine Urobilinogen Negative (Negative) Ur Leukocyte Esterase 3+ H (Negative) Urine RBC >30 H (0-4) /hpf Urine WBC >30 H (0-5) /hpf Ur Epithelial Cells >30 H (0-5) /lpf Urine Bacteria 4+ H (Negative) Urine Mucus Present H (None Prsent) 02/24/19 02/25/19 02/25/19 Range/Units 18:20 06:09 06:09 WBC 9.53 (4.8-10.8) K/uL RBC 3.31 L (4.2-5.4) M/uL Hgb 11.2 L D (12.0-16.0) g/dL Hct 34.0 L (37-47) % MCV 102.7 H (80-100) fL MCH 33.8 (25-34) pg MCHC 32.9 (32-36) g/dL RDW Std Deviation 55.7 H (36.4-46.3) fL RDW Coeff of Demetrio 14.8 H (11.5-14.5) % Plt Count 199 (130-400) K/uL MPV 9.2 (7.4-10.4) fL Immature Gran % (Auto) 0.2 % Neut % (Auto) 76.0 % Lymph % (Auto) 13.4 % Liberty % (Auto) 8.8 % Eos % (Auto) 1.5 % Baso % (Auto) 0.1 % Immature Gran # (Auto) 0.02 (0.00-0.02) K/uL Neut # (Auto) 7.24 H (1.4-6.5) K/uL Lymph # (Auto) 1.28 (1.2-3.4) K/uL [place] # (Auto) 0.84 H (0.11-0.59) K/uL Eos # (Auto) 0.14 (0-0.5) K/uL Baso # (Auto) 0.01 (0-0.2) K/uL PT 25.4 H INR 2.7 H APTT PTT Ratio Sodium (136-145) mmol/L Potassium (3.5-5.1) mmol/L Chloride (98-107) mmol/L Carbon Dioxide (21-32) mmol/L Anion Gap (3-11) BUN (7-18) mg/dl Creatinine (0.6-1.2) mg/dl Est Cr Clr Drug Dosing ml/min Est GFR ( Amer) Est GFR (Non-Af Amer) BUN/Creatinine Ratio (10-20) Glucose (70-99) mg/dl POC Glucose (70-99) Lactate 1.5 (0.4-2.0) mmol/L Calcium (8.5-10.1) mg/dl Magnesium (1.8-2.4) mg/dl Total Bilirubin (0.2-1) mg/dl AST (15-37) U/L ALT (12-78) U/L Alkaline Phosphatase (45-117) U/L Total Creatine Kinase (26-192) U/L Troponin I (0-0.045) ng/ml Total Protein (6.4-8.2) gm/dl Albumin (3.4-5.0) gm/dl Globulin (2.5-4.0) gm/dl Albumin/Globulin Ratio (0.9-2) TSH (0.300-4.500) uIu/ml Urine Color Urine Appearance (Clear) Urine pH (4.5-7.5) Ur Specific [place] (1.000-1.030) Urine Protein (Negative) Urine Glucose (UA) (Negative) Urine Ketones (Negative) Urine Blood (Negative) Urine Nitrite (Negative) Urine Bilirubin (Negative) Urine Urobilinogen (Negative) Ur Leukocyte Esterase (Negative) Urine RBC (0-4) /hpf Urine WBC (0-5) /hpf Ur Epithelial Cells (0-5) /lpf Urine Bacteria (Negative) Urine Mucus (None Prsent) 02/25/19 Range/Units 06:09 WBC (4.8-10.8) K/uL RBC (4.2-5.4) M/uL Hgb (12.0-16.0) g/dL Hct (37-47) % MCV (80-100) fL MCH (25-34) pg MCHC (32-36) g/dL RDW Std Deviation (36.4-46.3) fL RDW Coeff of Demetrio (11.5-14.5) % Plt Count (130-400) K/uL MPV (7.4-10.4) fL Immature Gran % (Auto) % Neut % (Auto) % Lymph % (Auto) % [place] % (Auto) % Eos % (Auto) % Baso % (Auto) % Immature Gran # (Auto) (0.00-0.02) K/uL Neut # (Auto) (1.4-6.5) K/uL Lymph # (Auto) (1.2-3.4) K/uL [place] # (Auto) (0.11-0.59) K/uL Eos # (Auto) (0-0.5) K/uL Baso # (Auto) (0-0.2) K/uL PT INR APTT PTT Ratio Sodium 139 (136-145) mmol/L Potassium 3.3 L D (3.5-5.1) mmol/L Chloride 111 H (98-107) mmol/L Carbon Dioxide 25 (21-32) mmol/L Anion Gap 3.0 (3-11) BUN 16 (7-18) mg/dl Creatinine 0.58 L D (0.6-1.2) mg/dl Est Cr Clr Drug Dosing 55.5 ml/min Est GFR ( Amer) 96.7 Est GFR (Non-Af Amer) 83.5 BUN/Creatinine Ratio 28.2 H (10-20) Glucose 75 (70-99) mg/dl POC Glucose (70-99) Lactate (0.4-2.0) mmol/L Calcium 7.3 L D (8.5-10.1) mg/dl Magnesium (1.8-2.4) mg/dl Total Bilirubin (0.2-1) mg/dl AST (15-37) U/L ALT (12-78) U/L Alkaline Phosphatase (45-117) U/L Total Creatine Kinase (26-192) U/L Troponin I (0-0.045) ng/ml Total Protein (6.4-8.2) gm/dl Albumin (3.4-5.0) gm/dl Globulin (2.5-4.0) gm/dl Albumin/Globulin Ratio (0.9-2) TSH (0.300-4.500) uIu/ml Urine Color Urine Appearance (Clear) Urine pH (4.5-7.5) Ur Specific [place] (1.000-1.030) Urine Protein (Negative) Urine Glucose (UA) (Negative) Urine Ketones (Negative) Urine Blood (Negative) Urine Nitrite (Negative) Urine Bilirubin (Negative) Urine Urobilinogen (Negative) Ur Leukocyte Esterase (Negative) Urine RBC (0-4) /hpf Urine WBC (0-5) /hpf Ur Epithelial Cells (0-5) /lpf Urine Bacteria (Negative) Urine Mucus (None Prsent) Imaging Data Radiologist's Impression: Radiology results as stated below per my review and the radiologist's interpretation: XR knee LT 2V routine CLINICAL HISTORY: fall trauma. Pain. COMPARISON: None. DISCUSSION: The bones and joint spaces appear intact. There is no evidence of fracture, dislocation or bony disease. Mild generalized degenerative change all major joint compartments. Mild osteopenia. IMPRESSION: Mild degenerative change. Osteopenia. No acute posttraumatic bony abnormality. The above report was generated using voice recognition software. It may contain grammatical, syntax or spelling errors. Electronically signed by: Ross Cabral M.D. 02/24/2019 10:55 AM XR hip LT 2-3V w pelvis CLINICAL HISTORY: fall trauma. Pain. COMPARISON: 08/30/2017 DISCUSSION: Stable postoperative changes consistent with a low lumbar laminectomy. Prior total left hip arthroplasty with the prosthetic in good position. No acute posttraumatic abnormality. There is no evidence for soft tissue swelling. IMPRESSION: 1. Degenerative changes low lumbar spine and left hip as noted. 2. No acute post traumatic abnormality. The above report was generated using voice recognition software. It may contain grammatical, syntax or spelling errors. Electronically signed by: Ross Cabral M.D. 02/24/2019 10:58 AM XR chest 1V portable CLINICAL HISTORY: weakness mental status change COMPARISON STUDY: 03/10/2018 FINDINGS: The bones soft tissues and hemidiaphragms are normal. The cardiomediastinal silhouette is normal. The lungs are clear. The pulmonary vasculature is normal. IMPRESSION: Negative chest. The above report was generated using voice recognition software. It may contain grammatical, syntax or spelling errors. Electronically signed by: Ross Cabral M.D. 02/24/2019 10:[address] head/brain wo con CT DOSE: 936.64 mGy.cm HISTORY: Trauma. Mental status change. fall TECHNIQUE: Multiaxial CT images of the head were performed without the use of intravenous contrast. A dose lowering technique was utilized adhering to the principles of ALARA. Comparison: 05/17/2016 Findings: The paranasal sinuses and mastoid air cells are clear. The calvarium and skull base are intact. The ventricles and sulci are within normal limits. There is no mass, hematoma, midline shift, or acute infarct. Findings of moderate chronic small vessel change of aging as well as components of atrophy. Compensatory ventricular prominence unchanged from the prior exam. Impression: No acute intracranial abnormality. Chronic and age-related change. The above report was generated using voice recognition software. It may contain grammatical, syntax or spelling errors. Electronically signed by: Ross Cabral M.D. 02/24/2019 11:[address] cervical spine wo con CLINICAL HISTORY: 88 years-old Female with fall. Acute neck pain with confusion and weakness status post fall COMPARISON: CT head of same day TECHNIQUE: Multiple axial CT images of the cervical spine were obtained without contrast. A dose lowering technique was utilized adhering to the principles of ALARA. FINDINGS: Demineralized appearance of the bones. 2 mm anterolisthesis C3 on C4, 3 mm anterolisthesis C4 on C5 and 2 mm anterolisthesis C7 on T1 is likely degenerative in nature related to severe multilevel facet arthropathy. No acute fracture notified. Severe disc space narrowing with prominent spondylitic spurring at C6-C7. Moderate disc space narrowing at C7-T1. Multilevel uncovertebral spurring. Evaluation of the central canal and neuroforamina is better assessed by MRI. No definite high-grade central canal stenosis. Multilevel foraminal narrowing is noted. There is no prevertebral soft tissue swelling. Calcifications noted about the bilateral carotid bulbs. Lung apices are generally clear with mild intralobular septal thickening. Advanced degenerative changes noted about the temporal mandibular joints. IMPRESSION: 1. No acute cervical spine fracture or subluxation identified. 2. Multilevel degenerative changes as above. 3. Demineralized appearance of the bones. The above report was generated using voice recognition software. It may contain grammatical, syntax or spelling errors. Electronically signed by: Bennett Hoffman M.D. 02/24/2019 11:[address] abd pelvis IV con only CLINICAL HISTORY: Generalized abdominal pain and leukocytosis. COMPARISON STUDY: March 10, 2018 TECHNIQUE: A dose lowering technique was utilized adhering to the principles of ALARA. CT DOSE: 282.35 mGy.cm FINDINGS: Lower chest: The heart is normal in size and configuration, without pericardial effusion. The lung bases and pleural spaces are clear. There is small hiatal hernia Liver: The contrast-enhanced liver is normal in size, contour, and attenuation. There is no intrahepatic biliary ductal dilatation. The hepatic veins and portal veins are patent. Gallbladder: Moderately distended, similar to the preceding study. Small calculi are suspected. Spleen: Normal in size and attenuation. Pancreas: Unremarkable. Adrenal glands: Unremarkable. Kidneys: There is an 8mm right renal cyst. There is a 1 cm left renal cyst. There is a slightly diminished left-sided nephrogram. Multiple left renal calculi are visualized. There is left-sided hydronephrosis. There is mild thic kening and enhancement of the left renal pelvis. There is mild left-sided hydroureter. No ureteral calculi are visualized. Bowel: There are no transition zones indicate bowel obstruction. By history the appendix is surgically absent. There is no acute diverticulitis. Peritoneum: There is no intraperitoneal free air or abdominal ascites. Vasculature: The abdominal aorta is normal in course and caliber. Adenopathy: None. Pelvic viscera: There is pronounced bladder wall thickening. Skeletal structures: There are postsurgical changes of a left hip arthroplasty with secondary streak artifact involving the pelvis. IMPRESSION: 1. No evidence of bowel obstruction. No evidence of free air 2. Left-sided nephrolithiasis 3. Left-sided hydronephrosis 4. Left-sided uroepithelial enhancement, likely secondary to an upper tract infection. 5. There are no ureteral calculi to explain the patient's left-sided hydronephrosis. Follow-up will be necessary. 6. Pronounced bladder wall thickening. This may indicate a cystitis. Correlation with urinalysis is advocated. 7. Distended gallbladder. Suspected cholelithiasis. The degree of gallbladder distention remain similar to the prior study. Electronically signed by: Eliel Adkins M.D. 02/24/2019 2:20 PM ECG Data Attestation: I personally reviewed and interpreted this ECG as follows: Indication: chest pain Rate (beats per minute): 101 Rhythm: sinus tachycardia Findings: + ST depression (anterior and low lateral); no PAC, no PVC and no ectopy Comparison ECG Date: from (04/09/18) Change: no significant change MDM Narrative The patient is an 88-year-old female who presented to the emergency department via ambulance after a fall to [facility] home. Additional history is obtained from the patient's family as well as the prehospital personnel. The patient had what was described as a minimal fall but did have significant left lower extremity pain. She also had a physical exam that I felt was consistent with dehydration with dry mucous membranes as well as low blood pressure. Patient was treated with IV fluids. She was also given IV antibiotics for presumed urinary tract infection noted on urinalysis. I discussed the patient's laboratory and radiographic studies with her and her family member who presented to the emergency department to be with her. The family members are very conc erned about the patient's overall condition. For this reason I discussed her case with the on-call [facility] hospitalist group. They have agreed to evaluate the patient in the emergency department for further management and disposition. Impression & Plan Altered mental status, UTI (urinary tract infection), Dehydration Discharge Plan Visit Data *Final* Discharge Date/Time: 02/24/19 16:05 Chief Complaint: Confusion Other Complaint: Fall ED Provider: Christian Pulido Discharge Problem: Altered mental status, UTI (urinary tract infection), Dehydration Patient Disposition: Admitted As Inpatient Discharge Instructions Interventions: ED Discharge Assessment Last Done: 02/24/19 16:05 Discharge Problem: Altered mental status Qualifiers: Altered mental status type: unspecified Qualified Code(s): R41.82 - Altered mental status, unspecified The scribe's documentation has been prepared under my direction and personally reviewed by me in its entirety. I confirm that the note above accurately reflec ts all work, treatment, procedures, and medical decision making performed by me.
[2019-02-24 18:51] LABS: Prothrombin Time 69.6 Seconds (9.0-12.0)
[2019-02-24 18:58] LABS: INR 7.9 (0.9-1.1)
[2019-02-24] MEDS ORDERED: PHYTONADIONE 5 MG TAB PO ONE (20:00)
[2019-02-24] MEDS: OXYCODONE/ACETAMINOPHEN 5mg/325mg TAB PO SCH (21:21)
[2019-02-24] MEDS: MIRTAZAPINE TAB 15 MG TAB PO SCH (21:21)
[2019-02-24] MEDS: FERROUS SULFATE 325 MG TAB PO SCH (21:21)
[2019-02-24] MEDS: GABAPENTIN 100 MG CAP PO SCH (21:22)
[2019-02-25 06:38] LABS: INR 2.7 (0.9-1.1); Prothrombin Time 25.4 Seconds (9.0-12.0)
[2019-02-25 07:01] LABS: BUN Creatinine Ratio 28.2 (10-20); Basophils # (auto) 0.01 K/uL (0-0.2); Basophils % (auto) 0.1 %; Calcium 7.3 mg/dl (8.5-10.1); Creatinine Clr Calc Pharmacy 55.5 ml/min; Eosinophils # (auto) 0.14 K/uL (0-0.5); Eosinophils % (auto) 1.5 %; Est GFR (African American) 96.7; Est GFR (Non-African American) 83.5; Hemoglobin 11.2 g/dL (12.0-16.0); Immature Granulocytes # (auto) 0.02 K/uL (0.00-0.02); Immature Granulocytes % (auto) 0.2 %; Lymphocytes # (auto) 1.28 K/uL (1.2-3.4); Lymphocytes % (auto) 13.4 %; Mean Corpuscular Hgb Conc 32.9 g/dL (32-36); Mean Corpuscular Volume 102.7 fL (80-100); Mean Platelet Volume 9.2 fL (7.4-10.4); Monocytes # (auto) 0.84 K/uL (0.11-0.59); Monocytes % (auto) 8.8 %; Neutrophils # (auto) 7.24 K/uL (1.4-6.5); Platelet Count 199 K/uL (130-400); Potassium 3.3 mmol/L (3.5-5.1); RDW Coefficient of Variation 14.8 % (11.5-14.5); RDW Standard Deviation 55.7 fL (36.4-46.3); Red Blood Count 3.31 M/uL (4.2-5.4); White Blood Count 9.53 K/uL (4.8-10.8)
--- NOTE | 2019-02-25 08:07 | Hospitalist Progress Note ---
Date of Service February 25, 2019 Assessment & Plan (1) Sepsis: (2) Pyelonephritis, acute: This is a 88-year-old female who has significant past medical history of atrial fibrillation anticoagulated with warfarin, HTN, HLD, nonobstructive CAD, CKD stage III, depression, history of DVT, OAB, history of nephrolithiasis status post ESWL 07/2018, who presents to [facility] after sliding out of bed and unable to get up at assisted living. Met sepsis criteria on admission- Leucocytosis, low BP on admission, lactate normal -CT scan abd- Left nephrolithiasis, hydronephrosis, cystitis, UTI, suspected cholelithiasis, follow-up necessary. UA- Positive for blood, UTI -S/P IVF -IV Rocephin- Day 2 -Blood cx, Urine cx to follow up -Urology consulted- Discussed case with them - likely hydronephrosis is related to infection. No ureteral stones or obstruction seen (3) Hydronephrosis, left: -CT scan-left hydronephrosis, nephrolithiasis -Hx of nephrolithiasis in past with ESWL 07/2018 -Discussed with Urology-reviewed imagesno ureteral stones or source of obstruction appreciated on CT, suspects that hydronephrosis is related to infection. Recommends 14 days treatment for antibiotics according to urine culture results, repeat renal ultrasound in 3 to 4 weeks with follow-up with urologist Dr Mitchell outpatient. (4) Nephrolithiasis: Per urology, no ureteral stones or source of obstruction seen (5) Hypokalemia: Replete Monitor (6) Atrial fibrillation: Rate and rhythm controlled on warfarin for anticoagulation (7) CAD (coronary artery disease): No chest pain/sob BB stopped 02/22 due to low bp and pill burden monitor (8) Hypothyroidism: recently stopped levothyroxine for pill burden TSH 1.14 (9) Prolonged Q-T interval on ECG: avoid QT prolonging agents Phenargan PRN for nausea (10) Depression: Continue lexapro and remeron QTC- normal (11) OAB (overactive bladder): Oxybutinin 5 mg BID (12) DVT prophylaxis: On coumadin with INR therapeutic SCD/Teds Disposition: Currently resides at [facility] Follow up: PCP Dr. Valle upon discharge Disposition Medical mx in progress Awaiting urine cx, on IV antibiotics Subjective Patient denies any complaints. Denies any flank pain, nausea, vomiting, abdominal pain, fever, chills. States she came in as she was sent by the facility, but she did not have any symptoms but Physical Exam Constitutional: WD/WN, vitals as above Respiratory: normal respiratory effort, lungs clear to auscultation Cardiovascular: RRR, no murmur, no edema Gastrointestinal (Abdomen): Inspection/Auscultation: normal bowel sounds Percussion/Palpation: abdomen soft; abdomen nontender, no guarding and abdomen not rigid Results & Data Vital Signs (Past 12 Hours) Vital Signs Temp Pulse Pulse Pulse Resp BP BP 02/25/19 07:31 36.5 C 66 17 103/61 02/25/19 03:46 36.1 C L 84 18 131/50 L 02/25/19 00:00 86 02/24/19 23:08 37.1 C 87 18 91/52 L 02/24/19 20:08 36.9 C 75 18 109/70 Pulse Ox 02/25/19 07:31 95 02/25/19 03:46 96 02/25/19 00:00 02/24/19 23:08 92 02/24/19 20:08 96 (1) CAD (coronary artery disease) Associated angina: without angina Coronary Disease-Associated Artery/Lesion type: [place] artery [place] vs. transplanted heart: [place] heart Qualified Code(s): I25.10 - Atherosclerotic heart disease of [place] coronary artery without angina pectoris (2) Atrial fibrillation Atrial fibrillation type: paroxysmal Qualified Code(s): I48.0 - Paroxysmal atrial fibrillation (3) Depression Depression Type: unspecified Qualified Code(s): F32.9 - Major depressive disorder, single episode, unspecified (4) Hypothyroidism Hypothyroidism type: unspecified Qualified Code(s): E03.9 - Hypothyroidism, unspecified (5) Sepsis Sepsis type: sepsis due to unspecified organism Qualified Code(s): A41.9 - Sepsis, unspecified organism
[2019-02-25] MEDS: OXYCODONE/ACETAMINOPHEN 5mg/325mg TAB PO SCH ×3 (08:27→20:09)
[2019-02-25] MEDS: FERROUS SULFATE 325 MG TAB PO SCH ×2 (08:27→20:09)
[2019-02-25] MEDS: cefTRIAXone SODIUM 1,000 MG in DEXTROSE 5% 50 ML IV SCH (08:28)
[2019-02-25] MEDS: ESCITALOPRAM OXALATE 20 MG TAB PO SCH (08:28)
[2019-02-25] MEDS: PANTOprazole 40 MG TAB PO SCH (08:28)
--- NOTE | 2019-02-25 09:52 | Urology Consultation ---
Date of Consultation February 25, 2019 Assessment & Plan (1) Hydronephrosis, left: 88YO female with L hydronephrosis, pyelonephritis. Patient is feeling well, no pain. I suspect that hydronephrosis is related to infection. No ureteral stones or source of obstruction appreciated on CT. Patient remains on empiric Ceftriaxone. Recommend transition to PO therapy per culture sensitivities for a total of 14 days of therapy. Will arrange outpatient follow up with established urologist Dr. Hernández in 3- 4 weeks, repeat Renal US at that time to assess for resolution of hydro. Patient encouraged to notify nursing staff if flank pain develops, would consider IVP at that time. Please contact our service if needed further during hospitalization. Thank you for allowing us to participate in the care of this patient. Attending note- pt evaluated agree with above (2) Pyelonephritis, acute: History of Present Illness Attending Physician: Cassandra Banda History of Present Illness 88YO female with L hydronephrosis, pyelonephritis. Patient reports fall at her assisted living facility bringing her to the hospital. CT abd/pelvis reveals bilateral renal cysts; nonobstructing L nephrolithiasis; mild L hydronephrosis; bladder thickening and L enhancement suggestive of infection. UC&S is pending, remains on empiric Ceftriaxone. Patient is completely asymptomatic today. She has no pain, questions why she is in the hospital. No nausea/vomiting. No fever/chills. Allergies Allergy/AdvReac Type Severity Reaction Status Date / Time omeprazole Allergy Unknown distal Verified 02/24/19 11:13 edema-none with pantoprozole Home Medications Home Medications Medication Instructions Recorded Confirmed Type pantoprazole [Protonix] 40 mg PO QAM #0 12/27/15 02/24/19 History acetaminophen 650 mg PO Q4H PRN #0 01/08/17 02/24/19 History mirtazapine 15 mg PO HS #0 tab 01/08/17 02/24/19 History gabapentin 100 mg PO HS #0 03/10/18 02/24/19 History oxybutynin chloride 5 mg PO BID #0 03/10/18 02/24/19 History amoxicillin 500 mg PO UD #21 cap 04/08/18 02/24/19 History ferrous sulfate 325 mg PO BID 30 Days #60 tab 04/08/18 02/24/19 History oxycodone-acetaminophen 1 tab PO TID 06/26/18 02/24/19 History alendronate 70 mg PO WK 02/24/19 02/24/19 History escitalopram oxalate 20 mg PO DAILY 02/24/19 02/24/19 History warfarin 1 mg PO 6XWK 02/24/19 02/24/19 History warfarin 2 mg PO WK 02/24/19 02/24/19 History Patient History Medical History NSTEMI (non-ST elevated myocardial infarction) (Resolved) OAB (overactive bladder) (Chronic) History of DVT (deep vein thrombosis) (Chronic) HTN (hypertension) (Chronic) Atrial fibrillation (Chronic) Osteoarthritis (Chronic) Sciatica (Chronic) Chronic pain (Chronic) Nephrolithiasis (Chronic) Depression (Chronic) Anxiety (Chronic) Hypothyroidism (Chronic) CAD (coronary artery disease) (Chronic) Atrial fibrillation GERD (gastroesophageal reflux disease) HLD (hyperlipidemia) HTN (hypertension) History of DVT (deep vein thrombosis) Migraines UTI (urinary tract infection) Surgical History History of lumbar surgery (Chronic) History of total hip arthroplasty (Chronic) LEFT History of total knee replacement (Chronic) RIGHT H/O lithotripsy (Chronic) 05/29/18. LMA #4. History of cataract surgery (Chronic) History of appendectomy (Chronic) H/O total hip arthroplasty (Chronic) Family History Mother , 70 Pancreatic cancer Father Coronary heart disease Social History Preferred Language: Greenlandic Communication Ability: Effective Communication Ability Comment: [facility] Plan Coordinator Required: No Beliefs That Will Affect Care: None Current Living Situation: Other Current Living Situation Comment: [facility] Other Information That Helps Us Care for You: No Feels Safe at Home: Yes Safety Concerns: Feels Safe At This Time Smoking Status: Never smoker Do You Dip or Chew Tobacco: No Hx Alcohol Use: No Hx Substance Use: No Review of Systems Constitutional: no fever and no chills Eyes: no worsening vision Ear, Nose, Mouth, Throat: no hearing loss Respiratory: no dyspnea Cardiovascular: no chest pain Gastrointestinal: no abdominal pain, no nausea and no vomiting Genitourinary: + urinary incontinence; no dysuria, no difficulty urinating and no flank pain Musculoskeletal: no back pain Neurologic: no tingling and no numbness Psychiatric: no confusion Physical Exam Constitutional: well developed; no acute distress ENMT: Ears: no hearing impairment Neck: normal visual inspection Respiratory: normal respiratory effort; does not use accessory muscles Cardiovascular: Vessels: no JVD Gastrointestinal (Abdomen): Percussion/Palpation: abdomen soft; abdomen nontender Psychiatric: A+Ox3, euthymic affect Genitourinary: normal external appearance; no CVA tenderness External urinary collection device in place, set to suction. Results & Data Vital Signs (Past 12 Hours) Vital Signs Temp Pulse Pulse Pulse Resp BP BP 02/25/19 07:31 36.5 C 66 17 103/61 02/25/19 03:46 36.1 C L 84 18 131/50 L 02/25/19 00:00 86 02/24/19 23:08 37.1 C 87 18 91/52 L Pulse Ox 02/25/19 07:31 95 02/25/19 03:46 96 02/25/19 00:00 02/24/19 23:08 92
[2019-02-25] MEDS ORDERED: POTASSIUM CHLORIDE 20 MEQ TABCR PO STA (10:57)
[2019-02-25] MEDS: OXYBUTYNIN CHLORIDE 5 MG TAB PO SCH ×2 (11:41→20:09)
[2019-02-25] MEDS ORDERED: VANCOMYCIN CONSULT ACTIVE PRN ×2 (13:45)
[2019-02-25] MEDS ORDERED: VANCOMYCIN HCL 1,250 MG in SODIUM CHLORIDE 0.9% 250 ML IV ONE (14:30)
--- NOTE | 2019-02-25 15:22 | Pharmacy Report ---
Pharmacy Abx Initial Consult - Date of Service February 25, 2019 - Pharmacy Dosing Scope Date of Consult: 02/25/19 Consultation requested by: Dr. Banda Pharmacy is consulted to initiate Vancomycin IV dosing therapy, order appropriate labs and adjust drug dose/frequency. - Subjective The patient is a 88 year old F admitted on 02/24/19 14:35. - Objective Height: 5 ft Weight: 57.4 kg Vital Signs (Past 12hrs): Vital Signs Temp Pulse Resp BP BP Pulse Ox 02/25/19 11:54 36.3 C L 66 16 97/61 L 95 02/25/19 07:31 36.5 C 66 17 103/61 95 02/25/19 03:46 36.1 C L 84 18 131/50 L 96 Lab Results (24hrs): Laboratory Tests (24 Hours) 02/25/19 02/25/19 06:09 06:09 WBC 9.53 Neut # (Auto) 7.24 H Creatinine 0.58 L D Est Cr Clr Drug Dosing 55.5 Micro Results: 02/24/19 18:19 Blood Culture - Pending Blood 02/24/19 11:35 Urine Culture - Final Urine,Straight Cath Three types of organisms present, all high counts. Repeat collection recommended. No further identifications or sensitivities to follow. - Assessment & Plan Assessment 88 year old F receiving empiric vancomycin and ceftriaxone for suspected pyelonephritis and one positive blood culture (gram positive cocci in chains). Plan Microbiology: * Urine culture has finalized with only growth of colonizers - will follow positive blood culture Labs: * Resolving leukocytosis (16.86 -> 9.53) * Significantly improved renal function from yesterday (SCr: 1.03 -> 0.58) - will follow Vancomycin IV * Estimated PK Parameters: Vd 0.7 L/kg, Len 0.046 hr-1, t1/2 15 hr * Loading dose: 1250 mg (22 mg/kg) * Maintenance dose: 1000 mg IV (17 mg/kg) every 18 hours * Will target trough of 15-20 for this empiric indication * Will hold off on ordering trough for now given empiric dosing indication Ceftriaxone IV * 1 g IV q24h appropriate for UTI indication Pharmacy will continue to follow and will adjust dose/frequency as necessary. Thank you.
[2019-02-25] MEDS ORDERED: WARFARIN SOD 1 MG TAB PO SCH (16:00)
[2019-02-25] MEDS: GABAPENTIN 100 MG CAP PO SCH (20:09)
[2019-02-25] MEDS: MIRTAZAPINE TAB 15 MG TAB PO SCH (20:09)
[2019-02-26 05:51] LABS: Hematocrit (blood only) 36.3 % (37-47); Mean Corpuscular Hgb Conc 33.1 g/dL (32-36); Mean Corpuscular Volume 102.5 fL (80-100); Mean Platelet Volume 9.3 fL (7.4-10.4); Platelet Count 231 K/uL (130-400); RDW Coefficient of Variation 14.4 % (11.5-14.5); RDW Standard Deviation 54.7 fL (36.4-46.3); Red Blood Count 3.54 M/uL (4.2-5.4)
[2019-02-26 06:15] LABS: INR 1.3 (0.9-1.1); Prothrombin Time 12.7 Seconds (9.0-12.0)
[2019-02-26 06:26] LABS: BUN Creatinine Ratio 16.6 (10-20); Calcium 8.2 mg/dl (8.5-10.1); Creatinine Clr Calc Pharmacy 55.2 ml/min; Est GFR (African American) 96.7; Est GFR (Non-African American) 83.5; Potassium 3.2 mmol/L (3.5-5.1)
[2019-02-26] MEDS: cefTRIAXone SODIUM 1,000 MG in DEXTROSE 5% 50 ML IV SCH (08:07)
[2019-02-26] MEDS: PANTOprazole 40 MG TAB PO SCH (08:08)
[2019-02-26] MEDS: FERROUS SULFATE 325 MG TAB PO SCH ×2 (08:08→20:27)
[2019-02-26] MEDS: OXYBUTYNIN CHLORIDE 5 MG TAB PO SCH ×2 (08:08→20:27)
[2019-02-26] MEDS: ESCITALOPRAM OXALATE 20 MG TAB PO SCH (08:08)
[2019-02-26] MEDS: OXYCODONE/ACETAMINOPHEN 5mg/325mg TAB PO SCH ×3 (08:09→20:27)
--- NOTE | 2019-02-26 08:58 | Hospitalist Progress Note ---
Date of Service February 26, 2019 Assessment & Plan (1) Sepsis: (2) Pyelonephritis, acute: This is a 88-year-old female who has significant past medical history of atrial fibrillation anticoagulated with warfarin, HTN, HLD, nonobstructive CAD, CKD stage III, depression, history of DVT, OAB, history of nephrolithiasis status post ESWL 07/2018, who presents to [facility] after sliding out of bed and unable to get up at assisted living. Met sepsis criteria on admission- Leucocytosis, low BP on admission, lactate normal -CT scan abd- Left nephrolithiasis, hydronephrosis, cystitis, UTI, suspected cholelithiasis, follow-up necessary. UA- Positive for blood, UTI. Clinically denies any symptoms. Afebrile, No leucocytosis -S/P IVF -IV Rocephin- Day 3 -Blood cx-1/2- GPC in chains--> Follow up. Urine cx- Klebsiella Pneumonia, bojorquez sensitive -Urology consulted- Discussed case with them - likely hydronephrosis is related to infection. No ureteral stones or obstruction seen (3) Hydronephrosis, left: -CT scan-left hydronephrosis, nephrolithiasis -Hx of nephrolithiasis in past with ESWL 07/2018 -Discussed with Urology-reviewed imagesno ureteral stones or source of obstruction appreciated on CT, suspects that hydronephrosis is related to infection. Recommends 14 days treatment with antibiotics according to urine culture results, repeat renal ultrasound in 3 to 4 weeks with follow-up with urologist Dr Mitchell outpatient. (4) Nephrolithiasis: Per urology, no ureteral stones or source of obstruction seen (5) Hypokalemia: Replete Monitor (6) Atrial fibrillation: Rate and rhythm controlled on warfarin for anticoagulation (7) CAD (coronary artery disease): No chest pain/sob BB stopped 02/22 due to low bp and pill burden monitor (8) Hypothyroidism: recently stopped levothyroxine for pill burden TSH 1.14 (9) History of DVT (deep vein thrombosis): -On coumadin -INR is sub therapeutic -Will increase coumadin dose to 3 mg today. Start on Lovenox SQ while INR is subtherapeutic -Discussed with son, unclear about when was the last DVT episode, but has been funmilayo time. (10) Prolonged Q-T interval on ECG: avoid QT prolonging agents Phenargan PRN for nausea (11) Depression: Continue lexapro and remeron QTC- normal (12) OAB (overactive bladder): Oxybutinin 5 mg BID (13) DVT prophylaxis: On coumadin with INR subtherpuetic (Start Lovenox SQ prophylaxis till INR therapeutic) SCDS/TEDS Disposition: Currently resides at [facility] Awaiting final blood cx results Follow up: PCP Dr. Valle upon discharge Subjective Patient denies any complaints. Denies any flank pain, nausea, vomiting, abdominal pain, fever, chills. States she came in as she was sent by the facility, but she did not have any symptoms. Physical Exam Constitutional: WD/WN, vitals as above Respiratory: normal respiratory effort, lungs clear to auscultation Cardiovascular: RRR, no murmur, no edema Gastrointestinal (Abdomen): Inspection/Auscultation: normal bowel sounds Percussion/Palpation: abdomen soft; abdomen nontender, no guarding and abdomen not rigid Results & Data Vital Signs (Past 12 Hours) Vital Signs Temp Pulse Pulse Resp BP BP Pulse Ox 02/26/19 07:32 36.5 C 76 16 117/77 94 02/26/19 04:10 36.8 C 61 18 123/79 95 02/26/19 00:06 71 02/25/19 22:39 36.4 C L 78 18 114/69 94 (1) CAD (coronary artery disease) Associated angina: without angina Coronary Disease-Associated Artery/Lesion type: [place] artery [place] vs. transplanted heart: [place] heart Qualified Code(s): I25.10 - Atherosclerotic heart disease of [place] coronary artery witho ut angina pectoris (2) Atrial fibrillation Atrial fibrillation type: paroxysmal Qualified Code(s): I48.0 - Paroxysmal atrial fibrillation (3) Depression Depression Type: unspecified Qualified Code(s): F32.9 - Major depressive disorder, single episode, unspecified (4) Hypothyroidism Hypothyroidism type: unspecified Qualified Code(s): E03.9 - Hypothyroidism, unspecified (5) Sepsis Sepsis type: sepsis due to unspecified organism Qualified Code(s): A41.9 - Sepsis, unspecified organism
[2019-02-26] MEDS ORDERED: POTASSIUM CHLORIDE 20 MEQ TABCR PO STA (09:02)
[2019-02-26] MEDS: ENOXAPARIN INJ 40 MG/0.4 ML SYR SQ SCH (11:00)
[2019-02-26] MEDS: VANCOMYCIN HCL 1,000 MG in SODIUM CHLORIDE 0.9% 250 ML IV SCH (11:00)
[2019-02-26] MEDS ORDERED: WARFARIN SOD 3 MG TAB PO SCH (16:00)
[2019-02-26] MEDS: MIRTAZAPINE TAB 15 MG TAB PO SCH (20:27)
[2019-02-26] MEDS: GABAPENTIN 100 MG CAP PO SCH (20:27)
[2019-02-27] MEDS ORDERED: VANCOMYCIN TROUGH ONE (03:30)
[2019-02-27 04:10] LABS: INR 1.4 (0.9-1.1); Prothrombin Time 14.2 Seconds (9.0-12.0)
[2019-02-27 04:22] LABS: BUN Creatinine Ratio 11.6 (10-20); Calcium 7.7 mg/dl (8.5-10.1); Est GFR (African American) 96.7; Est GFR (Non-African American) 83.5; Potassium 3.8 mmol/L (3.5-5.1)
[2019-02-27] MEDS: VANCOMYCIN HCL 1,000 MG in SODIUM CHLORIDE 0.9% 250 ML IV SCH ×2 (04:50→22:05)
[2019-02-27] MEDS: cefTRIAXone SODIUM 1,000 MG in DEXTROSE 5% 50 ML IV SCH (07:59)
[2019-02-27] MEDS: PANTOprazole 40 MG TAB PO SCH (08:01)
[2019-02-27] MEDS: OXYBUTYNIN CHLORIDE 5 MG TAB PO SCH ×2 (08:01→21:30)
[2019-02-27] MEDS: ESCITALOPRAM OXALATE 20 MG TAB PO SCH (08:01)
[2019-02-27] MEDS: FERROUS SULFATE 325 MG TAB PO SCH ×2 (08:01→21:30)
[2019-02-27] MEDS: ENOXAPARIN INJ 40 MG/0.4 ML SYR SQ SCH (08:02)
[2019-02-27] MEDS: OXYCODONE/ACETAMINOPHEN 5mg/325mg TAB PO SCH ×3 (09:00→21:30)
--- NOTE | 2019-02-27 09:30 | Hospitalist Progress Note ---
Date of Service February 27, 2019 Assessment & Plan (1) Sepsis: (2) Pyelonephritis, acute: This is a 88-year-old female who has significant past medical history of atrial fibrillation anticoagulated with warfarin, HTN, HLD, nonobstructive CAD, CKD stage III, depression, history of DVT, OAB, history of nephrolithiasis status post ESWL 07/2018, who presents to [facility] after sliding out of bed and unable to get up at assisted living. Met sepsis criteria on admission- Leucocytosis, low BP on admission, lactate normal -CT scan abd- Left nephrolithiasis, hydronephrosis, cystitis, UTI, suspected cholelithiasis, follow-up necessary. UA- Positive for blood, UTI. Clinically denies any symptoms. Afebrile, No leucocytosis -S/P IVF -IV Rocephin- Day 4 -Blood cx-1/2- Gamma Hemolytic Strep -> Follow up. Urine cx- Klebsiella Pneumonia, bojorquez sensitive. -Urology consulted- Discussed case with them - likely hydronephrosis is related to infection. No ureteral stones or obstruction seen (3) Hydronephrosis, left: -CT scan-left hydronephrosis, nephrolithiasis -Hx of nephrolithiasis in past with ESWL 07/2018 -Discussed with Urology-reviewed imagesno ureteral stones or source of obstruction appreciated on CT, suspects that hydronephrosis is related to infection. Recommends 14 days treatment with antibiotics according to urine culture results, repeat renal ultrasound in 3 to 4 weeks with follow-up with urologist Dr Mitchell outpatient. (4) Bacteremia: Blood culture 1/2 growing gamma hemolytic strep species IV vancomycin started empirically No clear source of infection Repeat blood cultures ordered Sensitivities to follow (5) Nephrolithiasis: Per urology, no ureteral stones or source of obstruction seen (6) Hypokalemia: Resolved Monitor (7) Atrial fibrillation: Rate and rhythm controlled on warfarin for anticoagulation (8) CAD (coronary artery disease): No chest pain/sob BB stopped 02/22 due to low bp and pill burden monitor (9) Hypothyroidism: recently stopped levothyroxine for pill burden TSH 1.14 (10) History of DVT (deep vein thrombosis): -On coumadin -INR is sub therapeutic -Will increase coumadin dose to 3 mg today. Start on Lovenox SQ while INR is subtherapeutic -Discussed with son, unclear about when was the last DVT episode, but has been funmilayo time. (11) Prolonged Q-T interval on ECG: avoid QT prolonging agents Phenargan PRN for nausea (12) Depression: Continue lexapro and remeron QTC- normal (13) OAB (overactive bladder): Oxybutinin 5 mg BID (14) DVT prophylaxis: On coumadin with INR subtherpuetic (Start Lovenox SQ prophylaxis till INR therapeutic) SCDS/TEDS Disposition: Currently resides at [facility] Awaiting final blood cx results Follow up: PCP Dr. Valle upon discharge Subjective Patient denies any complaints. Denies any flank pain, nausea, vomiting, abdominal pain, fever, chills. States she came in as she was sent by the facility, but she did not have any symptoms. Physical Exam Physical Exam: Constitutional WD/WN, vitals as above Respiratory normal respiratory effort, lungs clear to auscultation Cardiovascular RRR, no murmur, no edema Gastrointestinal (Abdomen) Inspection/Auscultation: normal bowel sounds Percussion/Palpation: abdomen soft; abdomen nontender, no guarding and abdomen not rigid Results & Data Vital Signs (Past 12 Hours) Vital Signs Temp Pulse Pulse Resp BP Pulse Ox 02/27/19 09:07 65 02/27/19 08:13 36.7 C 82 20 117/62 94 02/27/19 04:00 36.5 C 73 18 98/59 L 93 02/27/19 00:03 36.8 C 72 20 109/68 95 02/26/19 23:08 68 (1) Sepsis Sepsis type: sepsis due to unspecified organism Qualified Code(s): A41.9 - Sepsis, unspecified organism (2) Atrial fibrillation Atrial fibrillation type: paroxysmal Qualified Code(s): I48.0 - Paroxysmal atrial fibrillation (3) CAD (coronary artery disease) Coronary Disease-Associated Artery/Lesion type: [place] artery [place] vs. transplanted heart: [place] heart Associated angina: without angina Qualified Code(s): I25.10 - Atherosclerotic heart disease of [place] coronary artery without angina pectoris (4) Hypothyroidism Hypothyroidism type: unspecified Qualified Code(s): E03.9 - Hypothyroidism, unspecified (5) Depression Depression Type: unspecified Qualified Code(s): F32.9 - Major depressive d isorder, single episode, unspecified
--- NOTE | 2019-02-27 13:22 | Pharmacy Report ---
Pharmacy Abx Dose Short Note - Date of Service February 27, 2019 - Assessment & Plan Assessment 88 year old F receiving Vancomycin for treatment of Pyelonephritis Day # 3 of antimicrobial therapy. Laboratory Tests 02/27/19 03:36 Vancomycin Trough 13.9 Plan Vancomycin * Trough level of 13.9 mcg/mL is near-therapeutic. * Trough was drawn early after only 1 maintenance dose of Vancomycin and therefore is not at steady-state. I expect trough to rise into goal trough range of 15-20 mcg/ml after couple more doses of vancomycin. * Continued dose of Vancomycin 1000 mg IV every 18 hours * Re-check trough Vanco level on 03/01/19 before dose at 1000 to ensure adequate dosing at steady-state. Pharmacy will continue to follow and will adjust dose/frequency as necessary. Thank you.
[2019-02-27] MEDS ORDERED: WARFARIN SOD 5 MG TAB PO SCH (16:00)
[2019-02-27] MEDS: GABAPENTIN 100 MG CAP PO SCH (21:30)
[2019-02-27] MEDS: MIRTAZAPINE TAB 15 MG TAB PO SCH (21:30)
[2019-02-28 06:25] LABS: INR 2.7 (0.9-1.1); Prothrombin Time 25.4 Seconds (9.0-12.0)
[2019-02-28] MEDS ORDERED: AMPICILLIN 250 MG in SODIUM CHLORIDE 0.9% 50 ML IV SCH (08:00)
[2019-02-28] MEDS: FERROUS SULFATE 325 MG TAB PO SCH ×2 (09:15→20:39)
[2019-02-28] MEDS: ESCITALOPRAM OXALATE 20 MG TAB PO SCH (09:16)
[2019-02-28] MEDS: OXYBUTYNIN CHLORIDE 5 MG TAB PO SCH ×2 (09:16→20:39)
[2019-02-28] MEDS: ENOXAPARIN INJ 40 MG/0.4 ML SYR SQ SCH (09:16)
[2019-02-28] MEDS: PANTOprazole 40 MG TAB PO SCH (09:17)
[2019-02-28] MEDS: OXYCODONE/ACETAMINOPHEN 5mg/325mg TAB PO SCH ×3 (09:35→20:39)
--- NOTE | 2019-02-28 09:46 | Hospitalist Progress Note ---
Date of Service February 28, 2019 Assessment & Plan (1) Bacteremia: This is a 88-year-old female who has significant past medical history of atrial fibrillation anticoagulated with warfarin, HTN, HLD, nonobstructive CAD, CKD stage III, depression, history of DVT, OAB, history of nephrolithiasis status post ESWL 07/2018, who presents to [facility] after sliding out of bed and unable to get up at assisted living. Met sepsis criteria on admission- Leucocytosis, low BP on admission, lactate normal -CT scan abd- Left nephrolithiasis, hydronephrosis, cystitis, UTI, suspected cholelithiasis, follow-up necessary. UA- Positive for blood, UTI. Blood culture 1/2 growing Enterococcus Fecalis + -Source - Probably Urine. However, Urine cx-3 types of organisms, high counts, repeat collection recommended. Not repeated as patient was already on antibiotics for many days -Afebrile, No leucocytosis, Sepsis resolved. -Empirically was on IV Vancomycin--> Changed to IV Ampicillin today per c/s results. Duration: 14 days from negative blood culture. -Repeat blood cultures pending (2) Sepsis: Met sepsis criteria on admission- Leucocytosis, low BP on admission, lactate normal -Sepsis has resolved (3) Pyelonephritis, acute: Clinically denies any symptoms. Afebrile, No leucocytosis -S/P IVF -IV Rocephin - Day 4 ---> Change to IV Ampicillin today per c/s results. Duration: 14 days post negative blood culture -Blood cx-1/2-Enterococcus Fecalis sensitive to ampicillin, Urine cx-3 organisms, high counts, repeat recommended. Not repeated as patient has been on antibiotics for many days. -Urology consulted- Discussed case with them - likely hydronephrosis is related to infection. No ureteral stones or obstruction seen (4) Nephrolithiasis: Per urology, no ureteral stones or source of obstruction seen by reviewing the images. (5) Hydronephrosis, left: -CT scan-left hydronephrosis, nephrolithiasis -Hx of nephrolithiasis in past with ESWL 07/2018 -Discussed with Urology-reviewed imagesno ureteral stones or source of obstruction appreciated on CT, suspects that hydronephrosis is related to infection. Recommends 14 days treatment with antibiotics according to urine culture results, repeat renal ultrasound in 3 to 4 weeks with follow-up with urologist Dr Mitchell outpatient. (6) Hypokalemia: Resolved Monitor (7) Atrial fibrillation: Rate and rhythm controlled On warfarin for anticoagulation (8) CAD (coronary artery disease): No chest pain/sob BB stopped 02/22 due to low bp and pill burden monitor (9) Hypothyroidism: recently stopped levothyroxine for pill burden TSH 1.14 (10) History of DVT (deep vein thrombosis): -On coumadin -INR is therapeutic -Discontinue prophylactic Lovenox SQ -Discussed with son, unclear about when was the last DVT episode, but has been someA time. (11) Prolonged Q-T interval on ECG: Avoid QT prolonging agents Phenargan PRN for nausea (12) Depression: Continue lexapro and remeron QTC- normal (13) OAB (overactive bladder): Oxybutinin 5 mg BID (14) DVT prophylaxis: On coumadin with INR subtherpuetic (Start Lovenox SQ prophylaxis till INR therapeutic) SCDS/TEDS Disposition: Currently resides at [facility] Awaiting repeat blood culture results Follow up: PCP Dr. Valle upon discharge Subjective Patient denies any complaints. Denies any flank pain, nausea, vomiting, abdominal pain, fever, chills. Blood culture - came back positive for Enterococcus Fecalis- 1/2 bottles. States she came in as she was sent by the facility, but she did not have any symptoms. Physical Exam Physical Exam: GENERAL- AAOX3, No acute distress NECK- Supple, no JVD LUNGS- Air entry bilaterally equal. No rales, rhonchi, crackles, wheezes heard. HEART- Regular rate and rhythm. No murmurs ABDOMEN- Soft, non tender, non distended, Bowel sounds heard. EXTREMITIES- Good peripheral pulses, no edema Results & Data Vital Signs (Past 12 Hours) Vital Signs Temp Pulse Pulse Resp BP BP Pulse Ox 02/28/19 07:13 36.4 C L 70 18 135/74 93 02/28/19 04:00 36.4 C L 63 20 137/70 93 02/28/19 00:00 75 02/27/19 23:10 36.7 C 75 20 127/73 94 (1) Sepsis Sepsis type: sepsis due to unspecified organism Qualified Code(s): A41.9 - Sepsis, unspecified organism (2) Atrial fibrillation Atrial fibrillation type: paroxysmal Qualified Code(s): I48.0 - Paroxysmal atrial fibrillation (3) CAD (coronary artery disease) Coronary Disease-Associated Artery/Lesion type: [place] artery [place] vs. transplanted heart: [place] heart Associated angina: without angina Qualified Code(s): I25.10 - Atherosclerotic heart disease of [place] coronary artery without angina pectoris (4) Hypothyroidism Hypothyroidism type: unspecified Qualified Code(s): E03.9 - Hypothyroidism, unspecified (5) Depression Depression Type: unspecified Qualified Code(s): F32.9 - Major depressive disorder, single episode, unspecified
[2019-02-28] MEDS: AMPICILLIN 2,000 MG in SODIUM CHLOR 0.9% AD-VAN 100 ML IV SCH ×3 (10:46→21:36)
[2019-02-28] MEDS ORDERED: WARFARIN SOD 2 MG TAB PO SCH (16:00)
[2019-02-28] MEDS: MIRTAZAPINE TAB 15 MG TAB PO SCH (20:39)
[2019-02-28] MEDS: GABAPENTIN 100 MG CAP PO SCH (20:40)
[2019-03-01] MEDS: AMPICILLIN 2,000 MG in SODIUM CHLOR 0.9% AD-VAN 100 ML IV SCH ×2 (03:55→11:06)
[2019-03-01 06:26] LABS: Prothrombin Time 47.6 Seconds (9.0-12.0)
[2019-03-01 06:32] LABS: INR 5.2 (0.9-1.1)
[2019-03-01] MEDS: OXYCODONE/ACETAMINOPHEN 5mg/325mg TAB PO SCH ×3 (07:49→21:41)
[2019-03-01] MEDS: FERROUS SULFATE 325 MG TAB PO SCH ×2 (07:49→21:42)
[2019-03-01] MEDS: PANTOprazole 40 MG TAB PO SCH (07:49)
[2019-03-01] MEDS: OXYBUTYNIN CHLORIDE 5 MG TAB PO SCH ×2 (07:49→21:42)
[2019-03-01] MEDS: ESCITALOPRAM OXALATE 20 MG TAB PO SCH (07:49)
[2019-03-01 08:13] LABS: Hematocrit (blood only) 36.3 % (37-47); Hemoglobin 12.2 g/dL (12.0-16.0); Mean Corpuscular Hgb Conc 33.6 g/dL (32-36); Mean Corpuscular Volume 103.4 fL (80-100); Mean Platelet Volume 8.9 fL (7.4-10.4); Platelet Count 289 K/uL (130-400); RDW Coefficient of Variation 14.4 % (11.5-14.5); RDW Standard Deviation 54.3 fL (36.4-46.3); Red Blood Count 3.51 M/uL (4.2-5.4); White Blood Count 7.37 K/uL (4.8-10.8)
[2019-03-01 08:22] LABS: BUN Creatinine Ratio 7.8 (10-20); Calcium 8.4 mg/dl (8.5-10.1); Creatinine Clr Calc Pharmacy 58.2 ml/min; Est GFR (Non-African American) 85.4; Potassium 4.1 mmol/L (3.5-5.1)
[2019-03-01] MEDS ORDERED: VANCOMYCIN TROUGH ONE (09:30)
--- NOTE | 2019-03-01 09:54 | Hospitalist Progress Note ---
Date of Service March 01, 2019 Assessment & Plan (1) Bacteremia: This is a 88-year-old female who has significant past medical history of atrial fibrillation anticoagulated with warfarin, HTN, HLD, nonobstructive CAD, CKD stage III, depression, history of DVT, OAB, history of nephrolithiasis status post ESWL 07/2018, who presents to [facility] after sliding out of bed and unable to get up at assisted living. Met sepsis criteria on admission- Leucocytosis, low BP on admission, lactate normal -CT scan abd - Left nephrolithiasis, hydronephrosis, cystitis, UTI, suspected cholelithiasis, follow-up necessary. UA- Positive for blood, UTI. Blood culture 1/2 growing Enterococcus Fecalis + -Source - Probably Urine. However, Urine cx-3 types of organisms, high counts, repeat collection recommended. Not repeated as patient was already on antibiotics for many days -Afebrile, No leucocytosis, Sepsis resolved. -Empirically was on IV Vancomycin --> Changed to IV Ampicillin on 02/28 per c/s results--> Change to Amoxicillin 500 mg po tid . Duration: 14 days from negative blood culture. (Day 01/14) -Repeat blood cultures - preliminary negative (2) Sepsis: Met sepsis criteria on admission- Leucocytosis, low BP on admission, lactate normal -Sepsis has resolved (3) Pyelonephritis, acute: Clinically denies any symptoms. Afebrile, No leucocytosis -S/P IVF -IV Rocephin - Day 4 ---> Changed to IV Ampicillin on 02/28 per c/s results--> Change to Amoxicillin 500 mg po tid . Duration: 14 days from negative blood culture. (Day 01/14) -Blood cx-1/2-Enterococcus Fecalis sensitive to ampicillin, Urine cx-3 organisms, high counts, repeat recommended. Not repeated as patient has been on antibiotics for many days. Repeat Blood cx - preliminary negative -Urology consulted- Discussed case with them - likely hydronephrosis is related to infection. No ureteral stones or obstruction seen (4) Nephrolithiasis: Per urology, no ureteral stones or source of obstruction seen by reviewing the images. (5) Hydronephrosis, left: -CT scan-left hydronephrosis, nephrolithiasis -Hx of nephrolithiasis in past with ESWL 07/2018 -Discussed with Urology-reviewed imagesno ureteral stones or source of obstruction appreciated on CT, suspects that hydronephrosis is related to infection. Recommends 14 days treatment with antibiotics according to urine culture results, repeat renal ultrasound in 3 to 4 weeks with follow-up with urologist Dr Mitchell outpatient. (6) Hypokalemia: Resolved Monitor (7) Atrial fibrillation: Rate and rhythm controlled On warfarin for anticoagulation (8) CAD (coronary artery disease): No chest pain/sob BB stopped 02/22 due to low bp and pill burden monitor (9) Hypothyroidism: recently stopped levothyroxine for pill burden TSH 1.14 (10) History of DVT (deep vein thrombosis): -On coumadin -INR is supra - therapeutic (INR bumped up to 5.2). Will hold coumadin. Repeat INR in AM -Discussed with son, unclear about when was the last DVT episode, but has been someA time. (11) Prolonged Q-T interval on ECG: Avoid QT prolonging agents Phenargan PRN for nausea (12) Depression: Continue lexapro and remeron QTC- normal (13) OAB (overactive bladder): Oxybutinin 5 mg BID (14) DVT prophylaxis: On coumadin with INR subtherpuetic (Start Lovenox SQ prophylaxis till INR therapeutic) SCDS/TEDS Disposition: Currently resides at [facility] to discharge back to [facility] today Follow up: PCP Dr. Valle upon discharge Subjective Patient denies any complaints. Denies any flank pain, nausea, vomiting, abdominal pain, fever, chills. Blood culture - came back positive for Enterococcus Fecalis- 1/2 bottles. States she came in as she was sent by the facility, but she did not have any symptoms. Physical Exam Physical Exam: GENERAL- AAOX3, No acute distress NECK- Supple, no JVD LUNGS- Air entry bilaterally equal. No rales, rhonchi, crackles, wheezes heard. HEART- Regular rate and rhythm. No murmurs ABDOMEN- Soft, non tender, non distended, Bowel sounds heard. EXTREMITIES- Good peripheral pulses, no edema Results & Data Vital Signs (Past 12 Hours) Vital Signs Temp Pulse Pulse Resp BP Pulse Ox 03/01/19 09:00 62 03/01/19 07:59 36.4 C L 68 16 144/79 H 95 03/01/19 04:00 36.4 C L 74 18 146/70 H 93 03/01/19 00:03 36.4 C L 62 20 122/78 94 03/01/19 00:00 74 (1) Sepsis Sepsis type: sepsis due to unspecified organism Qualified Code(s): A41.9 - Sepsis, unspecified organism (2) Atrial fibrillation Atrial fibrillation type: paroxysmal Qualified Code(s): I48.0 - Paroxysmal atrial fibrillation (3) CAD (coronary artery disease) Coronary Disease-Associated Artery/Lesion type: [place] artery [place] vs. transplanted heart: [place] heart Associated angina: without angina Qualified Code(s): I25.10 - Atherosclerotic heart disease of [place] coronary artery without angina pectoris (4) Hypothyroidism Hypothyroidism type: unspecified Qualified Code(s): E03.9 - Hypothyroidism, unspecified (5) Depression Depression Type: unspecified Qualified Code(s): F32.9 - Major depressive disorder, single episode, unspecified
[2019-03-01] MEDS: SODIUM CHLORIDE 0.9% 500 ML IV SCH ×2 (12:30→19:26)
[2019-03-01] MEDS: [UNRECOGNIZED DRUG - REMARK] PO SCH ×4 (12:30→23:58)
[2019-03-01] MEDS: AMOXICILLIN 500 MG CAP PO SCH ×2 (13:29→21:42)
--- OUTSIDE RECORDS SUMMARY | 2019-03-01 20:17 | External Medical Summary | Continuity of Care Document ---
:1930 Author Name Ashlyn Wynn, Provider Address Unavailable Unavailable , Care Team Providers Name Role Phone [email or web address] Loyda Solitario Unavailable [email or web address]. JUDY Andre Unavailable Unavailable Unavailable Unavailable Unavailable Problems Urinary symptom or sign (788.99) (R39.9) Hydronephrosis (591) (N13.30) Calculus of kidney (592.0) (N20.0) Diarrhea (787.91) (R19.7) Alternating constipation and diarrhea (787.99) (R19.8) Urinary tract infection (599.0) (N39.0) BMI 27.0-27.9,adult (V85.23) (Z68.27) Hypertension (401.9) (I10) History of arthritis (V13.4) (Z87.39) Allergies and Adverse Reactions omeprazole (Allergy) No Known Environmental Allergies (Allergy) Medications Myrbetriq 25 MG Oral Tablet Extended Release 24 Hour; Take 1 tablet daily Tianna Hernández Start: 02-Feb-2018 Quantity: 30 Refills: 3 Meloxicam 7.5 MG Oral Tablet Refills: 0 Atenolol 25 MG Oral Tablet; TAKE ONE HALF TAB AT BEDTIME 45 Tablet Bottle Refills: 0 Keflex 250 MG Oral Capsule; TAKE 1 CAPSULE DAILY. Refills: 0 Protonix 40 MG Oral Packet; 1 QD Refills: 0 Simvastatin 40 MG Oral Tablet Refills: 0 Bisacodyl Laxative 5 MG TBEC Refills: 0 Aspirin 325 MG Oral Tablet Refills: 0 Tylenol 325 MG Oral Tablet Refills: 0 Mirtazapine 7.5 MG Oral Tablet Refills: 0 Gabapentin 100 MG Oral Capsule; TAKE 1 CAPSULE AT BEDTIME. Start: 05-Feb-2018 Refills: 0 Ampicillin 500 MG Oral Capsule; TAKE 1 CAPSULE 3 TIMES DAILY. KATHRINE Woods Start: 29-Jun-2018 Quantity: 21 Refills: 0 traMADol HCl - 50 MG Oral Tablet Refills: 0 Polyethylene Glycol POWD Refills: 0 oxyCODONE-Acetaminophen 5-325 MG Oral Tablet Refills: 0 Imodium CAPS Refills: 0 Cepacol LOZG Refills: 0 Warfarin Sodium 2 MG Oral Tablet Refills: 0 Vitamin D3 1000 UNIT Oral Capsule Refills: 0 Oxybutynin Chloride 5 MG Oral Tablet Refills: 0 Levothyroxine Sodium 25 MCG Oral Tablet Refills: 0 Citalopram Hydrobromide 20 MG Oral Tablet Refills: 0 Atorvastatin Calcium 20 MG Oral Tablet Refills: 0 Procedures Ultrasound, Renal/Bladder (Retroperitoneal) Date: 9 History of Knee Replacement Status: Comp leted History of Hip Surgery Status: Completed History of Appendectomy Status: Complete d History of Back Surgery Status: Complete d Immunizations Immunizations not documented Family History Mother Family history of diabetes mellitus (V18.0) (Z83.3) Status: Active Father Family history of cardiac disorder (V17.49) (Z82.49) Status: Active Sister Family history of liver disease (V18.59) (Z83.79) Status: Ac tive Social History - Smoking Status Never smoker Plan of Treatment Planned Encounters Appointment; Francisco J Hernández M.D. Start: 15-Mar-2019 10:15 Request Planned Observations Planned Goals not documented Results No Known Results Results not documented Encounters Appointment; Francisco J Hernández M.D. 23-Jul-2018 10:35 Encounter Diagnosis: Problem not documented Appointment; Bret Munguia M.D. 10-Jul-2018 8:00 Encounter Diagnosis: Problem not documented Appointment; Francisco J Hernández M.D. 23-Jun-2018 13:35 Encounter Diagnosis: Problem not documented Appointment; Bret Munguia M.D. 29-May-2018 8:00 Encounter Diagnosis: Problem not documented Appointment; Francisco J Hernández M.D. 26-May-2018 9:55 Encounter Diagnosis: Problem not documented Appointment; Francisco J Hernández M.D. 01-Apr-2018 10:25 Encounter Diagnosis: Problem not documented Appointment; Francisco J Hernández M.D. 03-Mar-2018 13:40 Encounter Diagnosis: Problem not documented Appointment; Denisha French PA-C 05-Feb-2018 13:30 Encounter Diagnosis: Problem not documented Appointment; Francisco J Hernández M.D. 02-Feb-2018 13:15 Encounter Diagnosis: Problem not documented Appointment; Francisco J Hernández M.D. 15-Mar-2019 10:15 Encounter Diagnosis: Problem not documented
[2019-03-01] MEDS: MIRTAZAPINE TAB 15 MG TAB PO SCH (21:42)
[2019-03-01] MEDS: GABAPENTIN 100 MG CAP PO SCH (21:42)
[2019-03-02] MEDS: SODIUM CHLORIDE 0.9% 500 ML IV SCH ×2 (00:56→06:17)
[2019-03-02] MEDS: [UNRECOGNIZED DRUG - REMARK] PO SCH ×6 (04:44→23:27)
[2019-03-02 06:30] LABS: Prothrombin Time 63.7 Seconds (9.0-12.0)
[2019-03-02 06:40] LABS: BUN Creatinine Ratio 9.8 (10-20); Calcium 7.6 mg/dl (8.5-10.1); Creatinine Clr Calc Pharmacy 71.4 ml/min; Est GFR (African American) 105.9; Est GFR (Non-African American) 91.4; Potassium 3.1 mmol/L (3.5-5.1)
[2019-03-02 06:56] LABS: INR 7.2 (0.9-1.1)
[2019-03-02] MEDS: OXYBUTYNIN CHLORIDE 5 MG TAB PO SCH ×2 (08:02→21:12)
[2019-03-02] MEDS: ESCITALOPRAM OXALATE 20 MG TAB PO SCH (08:02)
[2019-03-02] MEDS: FERROUS SULFATE 325 MG TAB PO SCH ×2 (08:02→21:11)
[2019-03-02] MEDS: PANTOprazole 40 MG TAB PO SCH (08:02)
[2019-03-02] MEDS: AMOXICILLIN 500 MG CAP PO SCH ×3 (08:02→21:12)
[2019-03-02] MEDS: OXYCODONE/ACETAMINOPHEN 5mg/325mg TAB PO SCH ×3 (08:04→21:11)
[2019-03-02] MEDS ORDERED: POTASSIUM CHLORIDE 20 MEQ TABCR PO ONE (08:30)
[2019-03-02] MEDS ORDERED: POTASSIUM CHLORIDE 20 MEQ/15 ML UDC PO STA (10:09)
--- NOTE | 2019-03-02 10:54 | Hospitalist Progress Note ---
Date of Service March 02, 2019 Assessment & Plan (1) Hyponatremia: Sodium level unchanged, 148 -Started on IV normal saline for hypovolemic hyponatremia yesterday, free water 300 cc every 4-6 hours -We will change IV normal saline to half-normal saline today, continue with free water intake. -Monitor levels- repeat labs in AM (2) Supratherapeutic INR: INR fluctuations Without coumadin went up to 7.2 today. Held coumadin yesterday, today Home dose: Coumadin 2 mg weekly, 1 mg 6 days a week -Could be sec to decreased PO intake, Vit K deficiency. -Hold coumadin today, Monitor INR- Repeat in AM (3) Bacteremia: This is a 88-year-old female who has significant past medical history of atrial fibrillation anticoagulated with warfarin, HTN, HLD, nonobstructive CAD, CKD stage III, depression, history of DVT, OAB, history of nephrolithiasis status post ESWL 07/2018, who presents to [facility] after sliding out of bed and unable to get up at assisted living. Met sepsis criteria on admission- Leucocytosis, low BP on admission, lactate normal -CT scan abd - Left nephrolithiasis, hydronephrosis, cystitis, UTI, suspected cholelithiasis, follow-up necessary. UA- Positive for blood, UTI. Blood culture 1/2 growing Enterococcus Fecalis + -Source - Probably Urine. However, Urine cx-3 types of organisms, high counts, repeat collection recommended. Not repeated as patient was already on antibiotics for many days -Afebrile, No leucocytosis, Sepsis resolved. -Empirically was on IV Vancomycin --> Changed to IV Ampicillin on 02/28 per c/s results--> Changed to Amoxicillin 500 mg po tid on 03/01 . Duration: 14 days from negative blood culture. (Day 02/14) -Repeat blood cultures - preliminary negative (4) Sepsis: Met sepsis criteria on admission- Leucocytosis, low BP on admission, lactate normal -Sepsis has resolved (5) Pyelonephritis, acute: Clinically denies any symptoms. Afebrile, No leucocytosis -S/P IVF -S/P IV Rocephin - Day 4 ---> Changed to IV Ampicillin on 02/28 per c/s results --> Changed to Amoxicillin 500 mg po tid on 03/01/19 . Duration: 14 days from negative blood culture. (Day 02/14) -Blood cx-1/2-Enterococcus Fecalis sensitive to ampicillin, Urine cx-3 organisms, high counts, repeat recommended. Not repeated as patient has been on antibiotics for many days. Repeat Blood cx - preliminary negative -Urology consulted- Discussed case with them - likely hydronephrosis is related to infection. No ureteral stones or obstruction seen (6) Nephrolithiasis: Per urology, no ureteral stones or source of obstruction seen by reviewing the images. (7) Hydronephrosis, left: -CT scan-left hydronephrosis, nephrolithiasis -Hx of nephrolithiasis in past with ESWL 07/2018 -Discussed with Urology-reviewed imagesno ureteral stones or source of obstru ction appreciated on CT, suspects that hydronephrosis is related to infection. Recommends 14 days treatment with antibiotics according to urine culture results, repeat renal ultrasound in 3 to 4 weeks with follow-up with urologist Dr Mitchell outpatient. (8) Hypokalemia: Resolved Monitor (9) Atrial fibrillation: Rate and rhythm controlled On warfarin for anticoagulation (10) CAD (coronary artery disease): No chest pain/sob BB stopped 02/22 due to low bp and pill burden monitor (11) Hypothyroidism: recently stopped levothyroxine for pill burden TSH 1.14 (12) History of DVT (deep vein thrombosis): -On coumadin -INR is supra - therapeutic (INR bumped up to 5.2). Will hold coumadin. Repeat INR in AM -Discussed with son, unclear about when was the last DVT episode, but has been someA time. (13) Prolonged Q-T interval on ECG: Avoid QT prolonging agents Phenargan PRN for nausea (14) Depression: Continue lexapro and remeron QTC- normal (15) OAB (overactive bladder): Oxybutinin 5 mg BID (16) DVT prophylaxis: On coumadin with INR subtherpuetic (Start Lovenox SQ prophylaxis till INR therapeutic) SCDS/TEDS Disposition: Currently resides at [facility] Plan is to discharge back to [facility] once Na, INR level stabilizes. Updated son Osmani on phone today Follow up: PCP Dr. Valle upon discharge Subjective Patient is hard of hearing. Usually doesnt complaint, but was more lethargic yesterday. Doing better with drinking water, but not much PO intake. States she came in as she was sent by the facility, but she did not have any symptoms. Physical Exam Physical Exam: GENERAL- AAOX2, Not in acute distress. Hard of hearing + NECK- Supple, no JVD LUNGS- Air entry bilaterally equal. No rales, rhonchi, crackles, wheezes heard. HEART- Regular rate and rhythm. No murmurs ABDOMEN- Soft, non tender, non distended, Bowel sounds heard. EXTREMITIES- Good peripheral pulses, no edema Results & Data Vital Signs (Past 12 Hours) Vital Signs Temp Pulse Pulse Pulse Resp BP BP 03/02/19 09:55 89 03/02/19 07:19 36.2 C L 75 18 142/69 H 03/02/19 04:37 36.4 C L 62 16 151/73 H 03/02/19 00:00 72 03/01/19 23:15 36.4 C L 71 18 120/85 Pulse Ox 03/02/19 09:55 03/02/19 07:19 96 03/02/19 04:37 95 03/02/19 00:00 03/01/19 23:15 95 (1) Sepsis Sepsis type: sepsis due to unspecified organism Qualified Code(s): A41.9 - Sepsis, unspecified organism (2) Atrial fibrillation Atrial fibrillation type: paroxysmal Qualified Code(s): I48.0 - Paroxysmal atrial fibrillation (3) CAD (coronary artery disease) Coronary Disease-Associated Artery/Lesion type: [place] artery [place] vs. transplanted heart: [place] heart Associated angina: without angina Qualified Code(s): I25.10 - Atherosclerotic heart disease of [place] coronary artery without angina pectoris (4) Hypothyroidism Hypothyroidism type: unspecified Qualified Code(s): E03.9 - Hypothyroidism, unspecified (5) Depression Depression Type: unspecified Qualified Code(s): F32.9 - Major depressive disorder, single episode, unspecified
[2019-03-02] MEDS: SODIUM CHLORIDE 0.45 % 1,000 ML IV SCH ×2 (11:15→23:27)
[2019-03-02] MEDS: POTASSIUM CHLORIDE 20 MEQ/15 ML UDC PO SCH (17:47)
[2019-03-02] MEDS: MIRTAZAPINE TAB 15 MG TAB PO SCH (21:11)
[2019-03-02] MEDS: GABAPENTIN 100 MG CAP PO SCH (21:12)
[2019-03-03] MEDS: [UNRECOGNIZED DRUG - REMARK] PO SCH ×5 (04:05→20:19)
[2019-03-03 06:27] LABS: Prothrombin Time 54.6 Seconds (9.0-12.0)
[2019-03-03 06:30] LABS: INR 6.1 (0.9-1.1)
[2019-03-03 06:42] LABS: BUN Creatinine Ratio 7.2 (10-20); Calcium 7.8 mg/dl (8.5-10.1); Creatinine Clr Calc Pharmacy 63.6 ml/min; Est GFR (African American) 101.6; Est GFR (Non-African American) 87.6; Potassium 3.4 mmol/L (3.5-5.1)
[2019-03-03] MEDS: PANTOprazole 40 MG TAB PO SCH (08:17)
[2019-03-03] MEDS: ESCITALOPRAM OXALATE 20 MG TAB PO SCH (08:17)
[2019-03-03] MEDS: OXYCODONE/ACETAMINOPHEN 5mg/325mg TAB PO SCH (08:17)
[2019-03-03] MEDS: AMOXICILLIN 500 MG CAP PO SCH ×3 (08:17→20:20)
[2019-03-03] MEDS: POTASSIUM CHLORIDE 20 MEQ/15 ML UDC PO SCH (08:17)
[2019-03-03] MEDS: OXYBUTYNIN CHLORIDE 5 MG TAB PO SCH ×2 (08:17→20:20)
[2019-03-03] MEDS: FERROUS SULFATE 325 MG TAB PO SCH (08:17)
[2019-03-03] MEDS ORDERED: LACTULOSE SYRUP 30 GM/45 ML UDP PO STA (08:39)
[2019-03-03] MEDS ORDERED: POTASSIUM CHLORIDE 20 MEQ TABCR PO STA (08:40)
[2019-03-03] MEDS: SENNA 8.6 MG TAB PO SCH (09:13)
--- NOTE | 2019-03-03 16:03 | Hospitalist Progress Note ---
Date of Service March 03, 2019 Assessment & Plan (1) Supratherapeutic INR: Home dose: Coumadin 2 mg once a week and 1 mg daily on the other 6 days of a week -has had supratherapeutic INR; recent INR is 6.1 on 03/03/19 and continue to hold coumadin, Hgb is stable (2) Bacteremia: This is a 88-year-old female who has significant past medical history of atrial fibrillation anticoagulated with warfarin, HTN, HLD, nonobstructive CAD, CKD stage III, depression, history of DVT, OAB, history of nephrolithiasis status post ESWL 07/2018, who presents to [facility] after sliding out of bed and unable to get up at assisted living. Met sepsis criteria on admission- Leucocytosis, low BP on admission, lactate normal -CT scan abd - Left nephrolithiasis, hydronephrosis, cystitis, UTI, suspected cholelithiasis, follow-up necessary. UA- Positive for blood, UTI. Blood culture 1/2 growing Enterococcus Fecalis + -Source - Probably Urine. However, Urine cx-3 types of organisms, high counts. urine culture was not repeated as patient was already on antibiotics for many days -Afebrile, No leucocytosis, Sepsis resolved. -Empirically was on IV Vancomycin --> Changed to IV Ampicillin on 02/28/19; Changed to Amoxicillin 500 mg po tid on 03/01/19 and plans for 14 days of antibiotics from first negative blood culture of 02/24/19 (3) Sepsis: Met sepsis criteria on admission- Leucocytosis, low BP on admission, lactate normal -Sepsis has resolved (4) Pyelonephritis, acute: possible pyelonephritis was suspected on this admission given hydronephrosis and Enterococcus Fecalis bacteremia -management of antibiotics a sabove (5) Nephrolithiasis: Multiple left renal calculi on CT abdomen 02/24/19 as per radiologist interpretation but no obstructing ureteral stones on CT as per urology service (6) Hydronephrosis, left: -Hx of nephrolithiasis in past with ESWL 07/2018 -CT abdomen 02/24/19 There is an 8mm right renal cyst. There is a 1 cm left renal cyst. There is a slightly diminished left-sided nephrogram. Multiple left renal calculi are visualized. There is left-sided hydronephrosis. There is mild thickening and enhancement of the left renal pelvis. There is mild left-sided hydroureter. No ureteral calculi are visualized. -Urology service suspects that hydronephrosis is related to infection and recommended on 02/25/19 of antibiotics and repeat renal ultrasound in 3 to 4 weeks with follow-up with urologist Dr Mitchell outpatient. (7) Hypokalemia: serum potassium improved from 3.1 to 3.4 by 03/03/19 and additional oral potassium supplements on (8) Atrial fibrillation: Rate and rhythm controlled on anticoagulation with supratherapeutic INR (9) CAD (coronary artery disease): recently stopped beta blockers on 02/22/19 to minimize polypharmacy and to raise blood pressures (10) Hypothyroidism: recently stopped levothyroxine in the past to minimize polypharmacy TSH 1.14, monitor as outpatient (11) History of DVT (deep vein thrombosis): -supratherapeutic INR on this admission -recent INR is 6.1 on 03/03/19 and continue to hold coumadin, Hgb is stable (12) Prolonged Q-T interval on ECG: QTC was 539 on 02/24/19 EKG but since then has been shorter intervals to 473 by 02/26/19 (13) Depression: Continue lexapro and remeron (14) OAB (overactive bladder): Oxybutinin 5 mg BID (15) DVT prophylaxis: supratherapeutic INR (16) Hypernatremia: serum sodium plateau a 148 on this admission serum sodium is 143 on 03/03/19 after 0.45% sodium saline IV fluids and free water will hold off IV fluids and recheck serum sodium on 03/04/19 Subjective Patient is not in acute distress. she is verbal. patient denies acute pain of abdomen or to the back. denies chest pain or shortness of breath. reports she travels with wheelchair at home but she is able to make leg raises on the hospital bed Physical Exam Constitutional: WD/WN, vitals as above Eyes: PERRL, conjunctivae normal, anicteric sclerae EOM intact bilaterally ENMT: external ear and nose normal, oropharynx normal Respiratory: normal respiratory effort, lungs clear to auscultation Cardiovascular: Rate/Rhythm: regular rate and regular rhythm Gastrointestinal (Abdomen): normal bowel sounds, soft, nontender, no hepatosplenomegaly Musculoskeletal: Head/Neck/Chest: normocephalic and head atraumatic Neurologic: PERRL, EOMI, accommodation nl, no face palsy, no dysarthria Psychiatric: Orientation: alert Results & Data Vital Signs (Past 12 Hours) Vital Signs Temp Pulse Pulse Resp BP Pulse Ox 03/03/19 15:04 36.7 C 81 18 117/71 90 03/03/19 11:56 36.7 C 102 H 18 130/77 96 03/03/19 10:00 58 L 03/03/19 07:23 36.5 C 70 18 121/69 91 (1) CAD (coronary artery disease) Associated angina: without angina Coronary Disease-Associated Artery/Lesion type: [place] artery [place] vs. transplanted heart: [place] heart Qualified Code(s): I25.10 - Atherosclerotic heart disease of [place] coronary artery without angina pectoris (2) Atrial fibrillation Atrial fibrillation type: paroxysmal Qualified Code(s): I48.0 - Paroxysmal atrial fibrillation (3) Depression Depression Type: unspecified Qualified Code(s): F32.9 - Major depressive disorder, single episode, unspecified (4) Hypothyroidism Hypothyroidism type: unspecified Qualified Code(s): E03.9 - Hypothyroidism, unspecified (5) Sepsis Sepsis type: sepsis due to unspecified organism Qualified Code(s): A41.9 - Sepsis, unspecified organism
[2019-03-03] MEDS: MIRTAZAPINE TAB 15 MG TAB PO SCH (20:19)
[2019-03-03] MEDS: GABAPENTIN 100 MG CAP PO SCH (20:20)
[2019-03-04] MEDS: [UNRECOGNIZED DRUG - REMARK] PO SCH ×4 (01:04→11:33)
[2019-03-04] MEDS: AMOXICILLIN 500 MG CAP PO SCH ×3 (09:14→20:31)
[2019-03-04] MEDS: ESCITALOPRAM OXALATE 20 MG TAB PO SCH (09:14)
[2019-03-04] MEDS: SENNA 8.6 MG TAB PO SCH (09:14)
[2019-03-04] MEDS: PANTOprazole 40 MG TAB PO SCH (09:14)
[2019-03-04] MEDS: POTASSIUM CHLORIDE 20 MEQ/15 ML UDC PO SCH (09:14)
[2019-03-04] MEDS: OXYBUTYNIN CHLORIDE 5 MG TAB PO SCH ×2 (09:18→20:31)
[2019-03-04 11:32] LABS: Basophils # (auto) 0.04 K/uL (0-0.2); Basophils % (auto) 0.6 %; Eosinophils # (auto) 0.29 K/uL (0-0.5); Eosinophils % (auto) 4.2 %; Hematocrit (blood only) 37.6 % (37-47); Hemoglobin 12.6 g/dL (12.0-16.0); Immature Granulocytes # (auto) 0.02 K/uL (0.00-0.02); Immature Granulocytes % (auto) 0.3 %; Lymphocytes # (auto) 1.53 K/uL (1.2-3.4); Lymphocytes % (auto) 21.9 %; Mean Corpuscular Hgb Conc 33.5 g/dL (32-36); Mean Corpuscular Volume 102.7 fL (80-100); Mean Platelet Volume 8.9 fL (7.4-10.4); Monocytes # (auto) 0.52 K/uL (0.11-0.59); Monocytes % (auto) 7.4 %; Neutrophils # (auto) 4.58 K/uL (1.4-6.5); Neutrophils % (auto) 65.6 %; Platelet Count 305 K/uL (130-400); RDW Coefficient of Variation 14.7 % (11.5-14.5); RDW Standard Deviation 55.1 fL (36.4-46.3); Red Blood Count 3.66 M/uL (4.2-5.4); White Blood Count 6.98 K/uL (4.8-10.8)
[2019-03-04 11:50] LABS: Prothrombin Time 46.5 Seconds (9.0-12.0)
[2019-03-04 11:55] LABS: Albumin Level 2.2 gm/dl (3.4-5.0); BUN Creatinine Ratio 6.3 (10-20); Calcium 8.5 mg/dl (8.5-10.1); Creatinine Clr Calc Pharmacy 55.7 ml/min; Est GFR (African American) 97.3; Est GFR (Non-African American) 83.9; Potassium 3.7 mmol/L (3.5-5.1)
[2019-03-04 11:58] LABS: Albumin Globulin Ratio 0.6 (0.9-2); Bilirubin,Total 0.3 mg/dl (0.2-1); Globulin 3.8 gm/dl (2.5-4.0)
[2019-03-04 12:27] LABS: INR 5.1 (0.9-1.1)
[2019-03-04] MEDS ORDERED: MICONAZOLE NITRATE POWDER 43 GM EXT PRN (13:51)
--- NOTE | 2019-03-04 14:34 | Hospitalist Progress Note ---
Date of Service March 04, 2019 Assessment & Plan (1) Supratherapeutic INR: Home dose: Coumadin 2 mg once a week and 1 mg daily on the other 6 days of a week -has had supratherapeutic INR; recent INR is 6.1 on 03/03/19 and continue to hold coumadin, Hgb is stable (2) Bacteremia: This is a 88-year-old female who has significant past medical history of atrial fibrillation anticoagulated with warfarin, HTN, HLD, nonobstructive CAD, CKD stage III, depression, history of DVT, OAB, history of nephrolithiasis status post ESWL 07/2018, who presents to [facility] after sliding out of bed and unable to get up at assisted living. Met sepsis criteria on admission- Leucocytosis, low BP on admission, lactate normal -CT scan abd - Left nephrolithiasis, hydronephrosis, cystitis, UTI, suspected cholelithiasis, follow-up necessary. UA- Positive for blood, UTI. Blood culture 1/2 growing Enterococcus Fecalis + -Source - Probably Urine. However, Urine cx-3 types of organisms, high counts. urine culture was not repeated as patient was already on antibiotics for many days -Afebrile, No leucocytosis, Sepsis resolved. -Empirically was on IV Vancomycin --> Changed to IV Ampicillin on 02/28/19; Changed to Amoxicillin 500 mg po tid on 03/01/19 and plans for 14 days of antibiotics from first negative blood culture of 02/24/19 -Patient to be discharge with amoxicillin 500 mg TID for 5 more days (3) Sepsis: Met sepsis criteria on admission- Leucocytosis, low BP on admission, lactate normal -Sepsis has resolved (4) Pyelonephritis, acute: possible pyelonephritis was suspected on this admission given hydronephrosis and Enterococcus Fecalis bacteremia -management of antibiotics as above (5) Nephrolithiasis: Multiple left renal calculi on CT abdomen 02/24/19 as per radiologist interpretation but no obstructing ureteral stones on CT as per urology service (6) Hydronephrosis, left: -Hx of nephrolithiasis in past with ESWL 07/2018 -CT abdomen 02/24/19 There is an 8mm right renal cyst. There is a 1 cm left renal cyst. There is a slightly diminished left-sided nephrogram. Multiple left renal calculi are visualized. There is left-sided hydronephrosis. There is mild thickening and enhancement of the left renal pelvis. There is mild left-sided hydroureter. No ureteral calculi are visualized. -Urology service suspects that hydronephrosis is related to infection and recommended on 02/25/19 of antibiotics and repeat renal ultrasound in 3 to 4 weeks with follow-up with urologist Dr Mitchell outpatient Please, follow up at [facility] Urology Office with Dr. Hernández on FridayMarch 15 at 10:15 am. *This office is located at [address] [facility] in [place]. If you need to change this appointment, call the office at [phone]. (7) Hypokalemia: serum potassium improved from 3.1 to 3.4 by 03/03/19 and additional oral potassium supplements given serum potassium 3.7 on 03/04/19 hypokalemia has resolved (8) Atrial fibrillation: Rate and rhythm controlled on anticoagulation with supratherapeutic INR (9) CAD (coronary artery disease): recently stopped beta blockers on 02/22/19 to minimize polypharmacy and to raise blood pressures (10) Hypothyroidism: recently stopped levothyroxine in the past to minimize polypharmacy TSH 1.14, monitor as outpatient (11) History of DVT (deep vein thrombosis): -supratherapeutic INR on this admission Patient should stop home dose warfarin (Home dose: Coumadin 2 mg once a week and 1 mg daily on the other 6 days of a week) and INR should be measured closely with coumadin clinic and primary care doctor. Peak INR of 7.2 on 03/02/19 and coumadin had been held for several days with INR on 03/04/19 as 5.1. Recommend that when INR is less than 3, that coumadin should be resumed as 0.5 mg daily to prevent recurrence of supratherapeutic INR. (12) Prolonged Q-T interval on ECG: QTC was 539 on 02/24/19 EKG but since then has been shorter intervals to 473 by 02/26/19 (13) Depression: Continue lexapro and remeron (14) OAB (overactive bladder): Oxybutinin 5 mg BID (15) DVT prophylaxis: supratherapeutic INR (16) Hypernatremia: serum sodium plateau a 148 on this admission serum sodium is 143 on 03/03/19 after 0.45% sodium saline IV fluids and free water held off IV fluids on 03/03/19 serum sodium on 03/04/19 is 144 Discharge Diagnosis Enterococcus Fecalis bacteremia, sepsis, left Hydronephrosis, possible acute pyelonephritis, acute cystitis urinary tract infection, hypernatremia, supratherapeutic INR, Hypernatremia, Hypokalemia, coronary artery disease Discharge Instructions Patient to be discharge with amoxicillin 500 mg TID for 5 more days Patient should stop home dose warfarin (Home dose: Coumadin 2 mg once a week and 1 mg daily on the other 6 days of a week) and INR should be measured closely with coumadin clinic and primary care doctor. Peak INR of 7.2 on 03/02/19 and coumadin had been held for several days with INR on 03/04/19 as 5.1. Recommend that when INR is less than 3, that coumadin should be resumed as 0.5 mg daily to prevent recurrence of supratherapeutic INR. 03/05/2019 6:15 PM Provider [facility] Department Pharmacy, [facility] 03/09/2019 1:40 PM Provider Ina Valle DO Department Family [facility] Patient will also need repeat serum sodium levels and potassium levels by primary care doctor Urology service suspects that hydronephrosis is related to infection and recommended on 02/25/19 of antibiotics and repeat renal ultrasound in 3 to 4 weeks with follow-up with urologist Dr Mitchell outpatient Please, follow up at [facility] Urology Office with Dr. Hernández on FridayMarch 15 at 10:15 am. *This office is located at [address] [facility] [address] [facility] in [place]. If you need to change this appointment, call the office at [phone]. Subjective Patient at mental baseline. denies acute pain. denies problems with breathing. Discussed with patient. patient's son, and employment case manager in regards to discharge plans Physical Exam Constitutional: WD/WN, vitals as above Eyes: PERRL, conjunctivae normal, anicteric sclerae EOM intact bilaterally ENMT: external ear and nose normal, oropharynx normal Neck: normal visual inspection and trachea midline Respiratory: normal respiratory effort, lungs clear to auscultation Cardiovascular: Rate/Rhythm: regular rate and regular rhythm Gastrointestinal (Abdomen): normal bowel sounds, soft, nontender, no hepatosplenomegaly Musculoskeletal: Head/Neck/Chest: normocephalic and head atraumatic Neurologic: PERRL, EOMI, accommodation nl, no face palsy, no dysarthria Psychiatric: Orientation: alert Results & Data Vital Signs (Past 12 Hours) Vital Signs Temp Pulse Pulse Resp BP Pulse Ox 03/04/19 11:24 36.8 C 82 18 119/73 95 03/04/19 08:00 69 03/04/19 07:37 36.4 C L 67 18 105/65 96 03/04/19 03:25 36.2 C L 81 16 104/68 93 (1) CAD (coronary artery disease) Associated angina: without angina Coronary Disease-Associated Artery/Lesion type: [place] artery [place] vs. transplanted heart: [place] heart Qualified Code(s): I25.10 - Atherosclerotic heart disease of [place] coronary artery without angina pectoris (2) Atrial fibrillation Atrial fibrillation type: paroxysmal Qualified Code(s): I48.0 - Paroxysmal atrial fibrillation (3) Depression Depression Type: unspecified Qualified Code(s): F32.9 - Major depressive disorder, single episode, unspecified (4) Hypothyroidism Hypothyroidism type: unspecified Qualified Code(s): E03.9 - Hypothyroidism, unspecified (5) Sepsis Sepsis type: sepsis due to unspecified organism Qualified Code(s): A41.9 - Sepsis, unspecified organism
--- NOTE | 2019-03-04 14:48 | Discharge Summary ---
Date of Service March 04, 2019 Admission HPI Per Admitting Provider This is a 88-year-old female who has significant past medical history of atrial fibrillation anticoagulated with warfarin, HTN, HLD, nonobstructive CAD, CKD stage III, depression, history of DVT, OAB, history of nephrolithiasis status post ESWL 07/2018, who presents to [facility] after sliding out of bed and unable to get up at assisted living. Sbskeiyt-rh-gee at bedside. Patient resides at [facility]. She noted she slid out of bed this morning and landed on her bottom and was unable to get up. She states she sat there for approximately 1 hour before help arrived. She denies hitting head or losing consciousness. She does not recall why she slid out of bed but does remember events. Further elicits to dysuria and increased urgency and frequency with urination. Ferjpgtl-ha-ifq admits to patient complaining of back pain prior to arrival. Denies any recent illness, fever, chills, sweats, lightheadedness, dizziness, chest pain, shortness, cough, URI symptoms, nausea, vomiting, diarrh ea, melena, hematochezia, hematuria, abdominal pain. She overall does have decreased appetite which is normal per [id number]. Was last known well when seen by family on [facility]. Patient does have history of UTI in the past which presented similarly. Ixnaozwb-le-pfx overall feels she has slight change in short-term memory as well as mumbling of speech. Further complains of dry mouth. She was last seen by her PCP Dr. Valle on 02/22/19 for routine follow-up. At that time patient complained of pill burden. Her levothyroxine, Toprol, atorvastatin, ASA, thiamine, vitamin D were discontinued. Admission Exam Per Admitting Provider Gen: WD/WN, elderly, female, NAD, sitting up in bed, pleasant, conversing easily, has foul urine odor Head: Normocephalic, Atraumatic Eyes: Sclera normal, no conjunctival injection, PERRLA, EOMI ENT: Gross hearing intact, normal pharynx, mucous membranes dry Neck: supple, no adenopathy, No JVD, no bruit, Resp: Clear to auscultation b/l, no wheeze, rales, rhonchi. 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 Extremities: No edema bilaterally Skin: warm, moist, no rash, negative turgor, cap refill < 2sec Neuro: Alert and oriented x 4 to self, place, year, president, speech normal, good mood/affect, cran nerve 2-12 intact grossly : deferred Principal Diagnosis Enterococcus Fecalis bacteremia, sepsis, left Hydronephrosis, possible acute pyelonephritis, acute cystitis urinary tract infection, hypernatremia, supratherapeutic INR, Hypernatremia, Hypokalemia, coronary artery disease Discharge Exam Constitutional WD/WN, vitals as above Eyes PERRL, conjunctivae normal, anicteric sclerae EOM intact bilaterally ENMT external ear and nose normal, oropharynx normal Neck normal visual inspection and trachea midline Respiratory normal respiratory effort, lungs clear to auscultation Cardiovascular Rate/Rhythm: regular rate and regular rhythm Gastrointestinal (Abdomen) normal bowel sounds, soft, nontender, no hepatosplenomegaly Musculoskeletal Head/Neck/Chest: normocephalic and head atraumatic Neurologic PERRL, EOMI, accommodation nl, no face palsy, no dysarthria Psychiatric Orientation: alert Discharge Data Allergies Allergy/AdvReac Type Severity Reaction Status Date / Time omeprazole Allergy Unknown distal Verified 02/24/19 11:13 edema-none with pantoprozole Consultations 02/24/19 13:45 ED Decision to Admit Stat 02/24/19 14:36 Consult Urology Routine 02/24/19 16:46 Consult Case Management - Discharge Planning Routine Ordered Studies 02/24/19 10:08 CT cervical spine wo con Stat CT head/brain wo con Stat 02/24/19 13:40 CT abd pelvis IV con only Stat Hospital Course (1) Supratherapeutic INR: Home dose: Coumadin 2 mg once a week and 1 mg daily on the other 6 days of a week -has had supratherapeutic INR; recent INR is 6.1 on 03/03/19 and continue to hold coumadin, Hgb is stable (2) Bacteremia: This is a 88-year-old female who has significant past medical history of atrial fibrillation anticoagulated with warfarin, HTN, HLD, nonobstructive CAD, CKD stage III, depression, history of DVT, OAB, history of nephrolithiasis status post ESWL 07/2018, who presents to [facility] after sliding out of bed and unable to get up at assisted living. Met sepsis criteria on admission- Leucocytosis, low BP on admission, lactate normal -CT scan abd - Left nephrolithiasis, hydronephrosis, cystitis, UTI, suspected cholelithiasis, follow-up necessary. UA- Positive for blood, UTI. Blood culture 1/2 growing Enterococcus Fecalis + -Source - Probably Urine. However, Urine cx-3 types of organisms, high counts. urine culture was not repeated as patient was already on antibiotics for many days -Afebrile, No leucocytosis, Sepsis resolved. -Empirically was on IV Vancomycin --> Changed to IV Ampicillin on 02/28/19; Changed to Amoxicillin 500 mg po tid on 03/01/19 and plans for 14 days of antibiotics from first negative blood culture of 02/24/19 -Patient to be discharge with amoxicillin 500 mg TID for 5 more days (3) Sepsis: Met sepsis criteria on admission- Leucocytosis, low BP on admission, lactate normal -Sepsis has resolved (4) Pyelonephritis, acute: possible pyelonephritis was suspected on this admission given hydronephrosis and Enterococcus Fecalis bacteremia -management of antibiotics as above (5) Nephrolithiasis: Multiple left renal calculi on CT abdomen 02/24/19 as per radiologist interpretation but no obstructing ureteral stones on CT as per urology service (6) Hydronephrosis, left: -Hx of nephrolithiasis in past with ESWL 07/2018 -CT abdomen 02/24/19 There is an 8mm right renal cyst. There is a 1 cm left renal cyst. There is a slightly diminished left-sided nephrogram. Multiple left renal calculi are visualized. There is left-sided hydronephrosis. There is mild thickening and enhancement of the left renal pelvis. There is mild left-sided hydroureter. No ureteral calculi are visualized. -Urology service suspects that hydronephrosis is related to infection and recommended on 02/25/19 of antibiotics and repeat renal ultrasound in 3 to 4 weeks with follow-up with urologist Dr Mitchell outpatient Please, follow up at [facility] Urology Office with Dr. Hernández on FridayMarch 15 at 10:15 am. *This office is located at [address] in [place]. If you need to change this appointment, call the office at [phone]. (7) Hypokalemia: serum potassium improved from 3.1 to 3.4 by 03/03/19 and additional oral potassium supplements given serum potassium 3.7 on 03/04/19 hypokalemia has resolved (8) Atrial fibrillation: Rate and rhythm controlled on anticoagulation with supratherapeutic INR (9) CAD (coronary artery disease): recently stopped beta blockers on 02/22/19 to minimize polypharmacy and to raise blood pressures (10) Hypothyroidism: recently stopped levothyroxine in the past to minimize polypharmacy TSH 1.14, monitor as outpatient (11) History of DVT (deep vein thrombosis): -supratherapeutic INR on this admission Patient should stop home dose warfarin (Home dose: Coumadin 2 mg once a week and 1 mg daily on the other 6 days of a week) and INR should be measured closely with coumadin clinic and primary care doctor. Peak INR of 7.2 on 03/02/19 and coumadin had been held for several days with INR on 03/04/19 as 5.1. Recommend that when INR is less than 3, that coumadin should be resumed as 0.5 mg daily to prevent recurrence of supratherapeutic INR. (12) Prolonged Q-T interval on ECG: QTC was 539 on 02/24/19 EKG but since then has been shorter intervals to 473 by 02/26/19 (13) Depression: Continue lexapro and remeron (14) OAB (overactive bladder): Oxybutinin 5 mg BID (15) DVT prophylaxis: supratherapeutic INR (16) Hypernatremia: serum sodium plateau a 148 on this admission serum sodium is 143 on 03/03/19 after 0.45% sodium saline IV fluids and free water held off IV fluids on 03/03/19 serum sodium on 03/04/19 is 144 Discharge Diagnosis Enterococcus Fecalis bacteremia, sepsis, left Hydronephrosis, possible acute pyelonephritis, acute cystitis urinary tract infection, hypernatremia, supratherapeutic INR, Hypernatremia, Hypokalemia, coronary artery disease Discharge Instructions Patient to be discharge with amoxicillin 500 mg TID for 5 more days Patient should stop home dose warfarin (Home dose: Coumadin 2 mg once a week and 1 mg daily on the other 6 days of a week) and INR should be measured closely with coumadin clinic and primary care doctor. Peak INR of 7.2 on 03/02/19 and coumadin had been held for several days with INR on 03/04/19 as 5.1. Recommend that when INR is less than 3, that coumadin should be resumed as 0.5 mg daily to prevent recurrence of supratherapeutic INR. 03/05/2019 6:15 PM Provider Kadi Ornelas Sp Department Pharmacy, [facility] 03/09/2019 1:40 PM Provider Ina Valle DO Department Family Practice [facility] Patient will also need repeat serum sodium levels and potassium levels by primary care doctor Urology service suspects that hydronephrosis is related to infection and recommended on 02/25/19 of antibiotics and repeat renal ultrasound in 3 to 4 weeks with follow-up with urologist Dr Mitchell outpatient Please, follow up at [facility] Urology Office with Dr. Hernández on FridayMarch 15 at 10:15 am. *This office is located at [address] in [place]. If you need to change this appointment, call the office at [phone]. Total Time Total Time Spent Total Time Spent (In Minutes): 40 minutes Total Time Includes: Examination of the Patient, Discharge Planning, Medication Reconciliation and Communication With Other Providers Discharge Plan Discharge Items Patient Disposition: Personal [facility] Reason For Visit: UTI,INCREASED CONFUSION Discharge Diagnosis: Enterococcus Fecalis bacteremia, sepsis, left Hydronephrosis, possible acute pyelonephritis, acute cystitis urinary tract infection, hypernatremia, supratherapeutic INR, Hypernatremia, Hypokalemia, coronary artery disease Condition: Fair Discharge Goals: Improve disease control Activity: Resume your previous activity Non-emergency contact: Primary Care Provider Call non-emergency contact if: you have any medication questions Follow-up/Referrals: [facility] [Provider Group] - 03/10/19 10:00 am (Please, follow up at [facility] on FridayMarch 10 at 10:00 am for an ultrasound of your bladder. *[place] at the main lobby of the [facility]. If you need to change this appointment, call the central scheduling department at [phone].) Francisco J Hernández MD [Physician] - 03/15/19 10:15 am (Please, follow up at [facility] Urology Office with Dr. Hernández on FridayMarch 15 at 10:15 am. *This office is located at [address] in [place]. If you need to change this appointment, call the office at [phone].) MAURICE ESPINOSA [Primary Care Provider] - Diet: Regular Diet Comment: minced, moist Addtl Provider Instructions: Patient to be discharge with amoxicillin 500 mg TID for 5 more days Patient should stop home dose warfarin (Home dose: Coumadin 2 mg once a week and 1 mg daily on the other 6 days of a week) and INR should be measured closely with coumadin clinic and primary care doctor. Peak INR of 7.2 on 03/02/19 and coumadin had been held for several days with INR on 03/04/19 as 5.1. Recommend th at when INR is less than 3, that coumadin should be resumed as 0.5 mg daily to prevent recurrence of supratherapeutic INR. 03/05/2019 6:15 PM Provider [facility] Sp Department Pharmacy, [facility] 03/09/2019 1:40 PM Provider Ina Valle DO Department Family Practice [facility] Patient will also need repeat serum sodium and serum potassium levels by primary care doctor Urology service suspects that hydronephrosis is related to infection and recommended on 02/25/19 of antibiotics and repeat renal ultrasound in 3 to 4 weeks with follow-up with urologist Dr Mitchell outpatient Please, follow up at [facility] Urology Office with Dr. Hernández on FridayMarch 15 at 10:15 am. *This office is located at [address] in [place]. If you need to change this appointment, call the office at [phone]. Prescriptions: New amoxicillin 500 mg Capsule 500 mg PO TID 5 Days Qty: 15 RF: 0 Continued pantoprazole [Protonix] 40 mg Tablet,Delayed Release (Dr/Ec) 40 mg PO QAM Qty: 0 RF: 0 mirtazapine 15 mg Tablet 15 mg PO HS Qty: 0 RF: 0 acetaminophen 325 mg Tablet 650 mg PO Q4H PRN (Reason: Pain) Qty: 0 RF: 0 gabapentin 100 mg Capsule 100 mg PO HS Qty: 0 RF: 0 oxybutynin chloride 5 mg Tablet 5 mg PO BID Qty: 0 RF: 0 ferrous sulfate 325 mg (65 mg iron) Tablet 325 mg PO BID 30 Days Qty: 60 RF: 3 alendronate 70 mg tablet 70 mg PO WK RF: 0 escitalopram oxalate 20 mg tablet 20 mg PO DAILY RF: 0 Discontinued amoxicillin 500 mg Capsule 500 mg PO UD Qty: 21 RF: 0 oxycodone-acetaminophen 5-325 mg Tablet 1 tab PO TID RF: 0 warfarin 2 mg tablet 2 mg PO WK RF: 0 warfarin 1 mg tablet 1 mg PO 6XWK RF: 0 Stand-Alone Forms: [facility] Discharge Orders: Discharge Order (Routine); Ordered 03/04/19 Ordered By: Ricki Soliz Admission Data Admit Date/Time: 02/24/19 14:35 Attending Provider: Ricki Soliz Admit Provider: Melva Brown Primary Care Provider: [facility] Other Providers: Rubén Lane II ; Melva Brown Service: Telemetry Medical Other Interventions: Discharge Summary Assessment (RN) Last Done: 03/04/19 14:35
[2019-03-04] MEDS: GABAPENTIN 100 MG CAP PO SCH (20:31)
[2019-03-04] MEDS: MIRTAZAPINE TAB 15 MG TAB PO SCH (20:31)
[2019-03-05 06:54] LABS: Prothrombin Time 35.7 Seconds (9.0-12.0)
[2019-03-05 07:00] LABS: INR 3.8 (0.9-1.1)
[2019-03-05 07:12] LABS: BUN Creatinine Ratio 7.7 (10-20); Calcium 8.4 mg/dl (8.5-10.1); Creatinine Clr Calc Pharmacy 48.2 ml/min; Est GFR (African American) 93.2; Est GFR (Non-African American) 80.4; Potassium 3.1 mmol/L (3.5-5.1)
[2019-03-05] MEDS ORDERED: POTASSIUM CHLORIDE 20 MEQ TABCR PO STA (07:28)
[2019-03-05] MEDS: ESCITALOPRAM OXALATE 20 MG TAB PO SCH (09:26)
[2019-03-05] MEDS: SENNA 8.6 MG TAB PO SCH (09:26)
[2019-03-05] MEDS: OXYBUTYNIN CHLORIDE 5 MG TAB PO SCH (09:26)
[2019-03-05] MEDS: AMOXICILLIN 500 MG CAP PO SCH ×2 (09:26→15:15)
[2019-03-05] MEDS: POTASSIUM CHLORIDE / WTR 10 MEQ/100 ML PLCT IV SCH ×2 (09:26→11:36)
[2019-03-05] MEDS: PANTOprazole 40 MG TAB PO SCH (09:26)
[2019-03-05] MEDS: POTASSIUM CHLORIDE 20 MEQ/15 ML UDC PO SCH (09:37)
--- NOTE | 2019-03-05 15:02 | Hospitalist Progress Note ---
Date of Service March 05, 2019 Assessment & Plan (1) Supratherapeutic INR: Home dose: Coumadin 2 mg once a week and 1 mg daily on the other 6 days of a week -supratherapeutic INR on this admission Patient should stop home dose warfarin (Home dose: Coumadin 2 mg once a week and 1 mg daily on the other 6 days of a week) and INR should be measured closely with coumadin clinic and primary care doctor. Peak INR of 7.2 on 03/02/19 and coumadin had been held for several days with INR on 03/05/19 as 3.8 Recommend that when INR is less than 3, that coumadin should be resumed as 0.5 mg daily to prevent recurrence of supratherapeutic INR. Patient will be discharged to [facility] and patient may have INR drawn by Friday03/08/19 as outpatient (2) Bacteremia: This is a 88-year-old female who has significant past medical history of atrial fibrillation anticoagulated with warfarin, HTN, HLD, nonobstructive CAD, CKD stage III, depression, history of DVT, OAB, history of nephrolithiasis status post ESWL 07/2018, who presents to [facility] after sliding out of bed and unable to get up at assisted living. Met sepsis criteria on admission- Leucocytosis, low BP on admission, lactate normal -CT scan abd - Left nephrolithiasis, hydronephrosis, cystitis, UTI, suspected cholelithiasis, follow-up necessary. UA- Positive for blood, UTI. Blood culture 1/2 growing Enterococcus Fecalis + -Source - Probably Urine. However, Urine cx-3 types of organisms, high counts. urine culture was not repeated as patient was already on antibiotics for many days -Afebrile, No leucocytosis, Sepsis resolved. -Empirically was on IV Vancomycin --> Changed to IV Ampicillin on 02/28/19; Changed to Amoxicillin 500 mg po tid on 03/01/19 and plans for 14 days of antibiotics from first negative blood culture of 02/24/19 -Patient to be discharge with amoxicillin 500 mg TID for 4 more days (3) Sepsis: Met sepsis criteria on admission- Leucocytosis, low BP on admission, lactate normal -Sepsis has resolved (4) Pyelonephritis, acute: possible pyelonephritis was suspected on this admission given hydronephrosis and Enterococcus Fecalis bacteremia -management of antibiotics as above (5) Nephrolithiasis: Multiple left renal calculi on CT abdomen 02/24/19 as per radiologist interpretation but no obstructing ureteral stones on CT as per urology service (6) Hydronephrosis, left: -Hx of nephrolithiasis in past with ESWL 07/2018 -CT abdomen 02/24/19 There is an 8mm right renal cyst. There is a 1 cm left renal cyst. There is a slightly diminished left-sided nephrogram. Multiple left renal calculi are visualized. There is left-sided hydronephrosis. There is mild thickening and enhancement of the left renal pelvis. There is mild left-sided hydroureter. No ureteral calculi are visualized. -Urology service suspects that hydronephrosis is related to infection and recommended on 02/25/19 of antibiotics and repeat renal ultrasound in 3 to 4 weeks with follow-up with urologist Dr Mitchell outpatient Please, follow up at [facility] Urology Office with Dr. Hernández on FridayMarch 15 at 10:15 am. *This office is located at [address] in [place]. If you need to change this appointment, call the office at [phone]. (7) Hypokalemia: serum potassium improved from 3.1 to 3.4 by 03/03/19 and additional oral potassium supplements given serum potassium 3.7 on 03/04/19 serum potassium is 3.1 on 03/05/19 and patient was given oral potassium 40 meq and 10 meq x of IV potassium Patient has discharge medication of potassium 10 meq daily for 5 more days Patient will also need repeat serum sodium and serum potassium levels by primary care doctor (8) Atrial fibrillation: Rate and rhythm controlled had been on anticoagulation with supratherapeutic INR (9) CAD (coronary artery disease): recently stopped beta blockers on 02/22/19 to minimize polypharmacy and to raise blood pressures (10) Hypothyroidism: recently stopped levothyroxine in the past to minimize polypharmacy TSH 1.14, monitor as outpatient (11) History of DVT (deep vein thrombosis): -supratherapeutic INR on this admission Patient should stop home dose warfarin (Home dose: Coumadin 2 mg once a week and 1 mg daily on the other 6 days of a week) and INR should be measured closely with coumadin clinic and primary care doctor. Peak INR of 7.2 on 03/02/19 and coumadin had been held for several days with INR on 03/05/19 as 3.8 Recommend that when INR is less than 3, that coumadin should be resumed as 0.5 mg daily to prevent recurrence of supratherapeutic INR. (12) Prolonged Q-T interval on ECG: QTC was 539 on 02/24/19 EKG but since then has been shorter intervals to 473 by 02/26/19 (13) Depression: Continue lexapro and remeron (14) OAB (overactive bladder): Oxybutinin 5 mg BID (15) DVT prophylaxis: supratherapeutic INR (16) Hypernatremia: serum sodium plateau a 148 on this admission serum sodium is 143 on 03/03/19 after 0.45% sodium saline IV fluids and free water held off IV fluids on 03/03/19 serum sodium on 03/04/19 is 144 serum sodium on 03/05/19 is 145 Patient will also need repeat serum sodium and serum potassium levels by primary care doctor Discharge Diagnosis Enterococcus Fecalis bacteremia, sepsis, left Hydronephrosis, possible acute p yelonephritis, acute cystitis urinary tract infection, hypernatremia, supratherapeutic INR, Hypernatremia, Hypokalemia, coronary artery disease Discharge Instructions Patient to be discharge with amoxicillin 500 mg TID for 4 more days Patient should stop home dose warfarin (Home dose: Coumadin 2 mg once a week and 1 mg daily on the other 6 days of a week) and INR should be measured closely with coumadin clinic and primary care doctor. Peak INR of 7.2 on 03/02/19 and coumadin had been held for several days with INR on 03/04/19 as 5.1. INR on 03/05/19 is 3.8. Recommend that when INR is less than 3, that coumadin should be resumed as 0.5 mg daily to prevent recurrence of supratherapeutic INR. Patient will be discharged to [facility] and patient may have INR drawn by Friday03/08/19 as outpatient 03/09/2019 1:40 PM Provider DO Jg Kelly [facility] Patient will also need repeat serum sodium and serum potassium levels by primary care doctor Patient has discharge medication of potassium 10 meq daily for 5 more days Urology service suspects that hydronephrosis is related to infection and recommended on 02/25/19 of antibiotics and repeat renal ultrasound in 3 to 4 weeks with follow-up with urologist Dr Mitchell outpatient Please, follow up at [facility] Urology Office with Dr. Hernández on FridayMarch 15 at 10:15 am. *This office is located at [address] in [place]. If you need to change this appointment, call the office at [phone]. Subjective Patient seen and examined today and awake and alert. She had no complaints other than when she was having IV potassium that there was pain from the infusion. no fever. no vomiting. no lightheadedness. no pain elsewhere Physical Exam Constitutional: WD/WN, vitals as above Eyes: PERRL, conjunctivae normal, anicteric sclerae EOM intact bilaterally ENMT: external ear and nose normal, oropharynx normal Neck: normal visual inspection and trachea midline Respiratory: normal respiratory effort, lungs clear to auscultation Cardiovascular: Rate/Rhythm: regular rate and regular rhythm Gastrointestinal (Abdomen): normal bowel sounds, soft, nontender, no hepatosplenomegaly Musculoskeletal: Head/Neck/Chest: normocephalic and head atraumatic Neurologic: PERRL, EOMI, accommodation nl, no face palsy, no dysarthria Psychiatric: Orientation: alert Results & Data Vital Signs (Past 12 Hours) Vital Signs Temp Pulse Pulse Resp BP BP Pulse Ox 03/05/19 14:42 36.3 C L 75 63 18 138/78 119/71 97 03/05/19 07:32 36.3 C L 63 18 138/78 97 03/05/19 04:00 36.2 C L 74 16 118/74 95 (1) CAD (coronary artery disease) Associated angina: without angina Coronary Disease-Associated Artery/Lesion type: [place] artery [place] vs. transplanted heart: [place] heart Qualified Code(s): I25.10 - Atherosclerotic heart disease of [place] coronary artery without angina pectoris (2) Atrial fibrillation Atrial fibrillation type: paroxysmal Qualified Code(s): I48.0 - Paroxysmal atrial fibrillation (3) Depression Depression Type: unspecified Qualified Code(s): F32.9 - Major depressive disorder, single episode, unspecified (4) Hypothyroidism Hypothyroidism type: unspecified Qualified Code(s): E03.9 - Hypothyroidism, unspecified (5) Sepsis Sepsis type: sepsis due to unspecified organism Qualified Code(s): A41.9 - Sepsis, unspecified organism
--- NOTE | 2019-03-05 15:11 | Discharge Summary ---
Date of Service March 05, 2019 Admission HPI Per Admitting Provider This is a 88-year-old female who has significant past medical history of atrial fibrillation anticoagulated with warfarin, HTN, HLD, nonobstructive CAD, CKD stage III, depression, history of DVT, OAB, history of nephrolithiasis status post ESWL 07/2018, who presents to [facility] after sliding out of bed and unable to get up at assisted living. [id number] at bedside. Patient resides at [facility]. She noted she slid out of bed this morning and landed on her bottom and was unable to get up. She states she sat there for approximately 1 hour before help arrived. She denies hitting head or losing consciousness. She does not recall why she slid out of bed but does remember events. Further elicits to dysuria and increased urgency and frequency with urination. Oytyozwl-ba-hcq admits to patient complaining of back pain prior to arrival. Denies any recent illness, fever, chills, sweats, lightheadedness, dizziness, chest pain, shortness, cough, URI symptoms, nausea, vomiting, diarrh ea, melena, hematochezia, hematuria, abdominal pain. She overall does have decreased appetite which is normal per vziowqwy-ev-clh. Was last known well when seen by family on [facility]. Patient does have history of UTI in the past which presented similarly. Bdbzexln-jr-age overall feels she has slight change in short-term memory as well as mumbling of speech. Further complains of dry mouth. She was last seen by her PCP Dr. Valle on 02/22/19 for routine follow-up. At that time patient complained of pill burden. Her levothyroxine, Toprol, atorvastatin, ASA, thiamine, vitamin D were discontinued. Admission Exam Per Admitting Provider Gen: WD/WN, elderly, female, NAD, sitting up in bed, pleasant, conversing easily , has foul urine odor Head: Normocephalic, Atraumatic Eyes: Sclera normal, no conjunctival injection, PERRLA, EOMI ENT: Gross hearing intact, normal pharynx, mucous membranes dry Neck: supple, no adenopathy, No JVD, no bruit, Resp: Clear to auscultation b/l, no wheeze, rales, rhonchi. 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 Extremities: No edema bilaterally Skin: warm, moist, no rash, negative turgor, cap refill < 2sec Neuro: Alert and oriented x 4 to self, place, year, president, speech normal, good mood/affect, cran nerve 2-12 intact grossly : deferred Principal Diagnosis Enterococcus Fecalis bacteremia, sepsis, left Hydronephrosis, possible acute pyelonephritis, acute cystitis urinary tract infection, hypernatremia, supratherapeutic INR, Hypernatremia, Hypokalemia, coronary artery disease Discharge Exam Constitutional WD/WN, vitals as above Eyes PERRL, conjunctivae normal, anicteric sclerae EOM intact bilaterally ENMT external ear and nose normal, oropharynx normal Neck normal visual inspection and trachea midline Respiratory normal respiratory effort, lungs clear to auscultation Cardiovascular Rate/Rhythm: regular rate and regular rhythm Gastrointestinal (Abdomen) normal bowel sounds, soft, nontender, no hepatosplenomegaly Musculoskeletal Head/Neck/Chest: normocephalic and head atraumatic Neurologic PERRL, EOMI, accommodation nl, no face palsy, no dysarthria Psychiatric Orientation: alert Discharge Data Allergies Allergy/AdvReac Type Severity Reaction Status Date / Time omeprazole Allergy Unknown distal Verified 02/24/19 11:13 edema-none with pantoprozole Consultations 02/24/19 13:45 ED Decision to Admit Stat 02/24/19 14:36 Consult Urology Routine 02/24/19 16:46 Consult Case Management - Discharge Planning Routine Ordered Studies 02/24/19 10:08 CT cervical spine wo con Stat CT head/brain wo con Stat 02/24/19 13:40 CT abd pelvis IV con only Stat Hospital Course (1) Supratherapeutic INR: Home dose: Coumadin 2 mg once a week and 1 mg daily on the other 6 days of a week -supratherapeutic INR on this admission Patient should stop home dose warfarin (Home dose: Coumadin 2 mg once a week and 1 mg daily on the other 6 days of a week) and INR should be measured closely with coumadin clinic and primary care doctor. Peak INR of 7.2 on 03/02/19 and coumadin had been held for several days with INR on 03/05/19 as 3.8 Recommend that when INR is less than 3, that coumadin should be resumed as 0.5 mg daily to prevent recurrence of supratherapeutic INR. Patient will be discharged to [facility] and patient may have INR drawn by Friday03/08/19 as outpatient (2) Bacteremia: This is a 88-year-old female who has significant past medical history of atrial fibrillation anticoagulated with warfarin, HTN, HLD, nonobstructive CAD, CKD stage III, depression, history of DVT, OAB, history of nephrolithiasis status post ESWL 07/2018, who presents to [facility] after sliding out of bed and unable to get up at assisted living. Met sepsis criteria on admission- Leucocytosis, low BP on admission, lactate normal -CT scan abd - Left nephrolithiasis, hydronephrosis, cystitis, UTI, suspected cholelithiasis, follow-up necessary. UA- Positive for blood, UTI. Blood culture 1/2 growing Enterococcus Fecalis + -Source - Probably Urine. However, Urine cx-3 types of organisms, high counts. urine culture was not repeated as patient was already on antibiotics for many days -Afebrile, No leucocytosis, Sepsis resolved. -Empirically was on IV Vancomycin --> Changed to IV Ampicillin on 02/28/19; Changed to Amoxicillin 500 mg po tid on 03/01/19 and plans for 14 days of antibiotics from first negative blood culture of 02/24/19 -Patient to be discharge with amoxicillin 500 mg TID for 4 more days (3) Sepsis: Met sepsis criteria on admission- Leucocytosis, low BP on admission, lactate normal -Sepsis has resolved (4) Pyelonephritis, acute: possible pyelonephritis was suspected on this admission given h ydronephrosis and Enterococcus Fecalis bacteremia -management of antibiotics as above (5) Nephrolithiasis: Multiple left renal calculi on CT abdomen 02/24/19 as per radiologist interpretation but no obstructing ureteral stones on CT as per urology service (6) Hydronephrosis, left: -Hx of nephrolithiasis in past with ESWL 07/2018 -CT abdomen 02/24/19 There is an 8mm right renal cyst. There is a 1 cm left renal cyst. There is a slightly diminished left-sided nephrogram. Multiple left renal calculi are visualized. There is left-sided hydronephrosis. There is mild thickening and enhancement of the left renal pelvis. There is mild left-sided hydroureter. No ureteral calculi are visualized. -Urology service suspects that hydronephrosis is related to infection and recommended on 02/25/19 of antibiotics and repeat renal ultrasound in 3 to 4 weeks with follow-up with urologist Dr Mitchell outpatient Please, follow up at [facility] Urology Office with Dr. Hernández on FridayMarch 15 at 10:15 am. *This office is located at [address] [facility] in [place]. If you need to change this appointment, call the office at [phone]. (7) Hypokalemia: serum potassium improved from 3.1 to 3.4 by 03/03/19 and additional oral potassium supplements given serum potassium 3.7 on 03/04/19 serum potassium is 3.1 on 03/05/19 and patient was given oral potassium 40 meq and 10 meq x of IV potassium Patient has discharge medication of potassium 10 meq daily for 5 more days Patient will also need repeat serum sodium and serum potassium levels by primary care doctor (8) Atrial fibrillation: Rate and rhythm controlled had been on anticoagulation with supratherapeutic INR (9) CAD (coronary artery disease): recently stopped beta blockers on 02/22/19 to minimize polypharmacy and to raise blood pressures (10) Hypothyroidism: recently stopped levothyroxine in the past to minimize polypharmacy TSH 1.14, monitor as outpatient (11) History of DVT (deep vein thrombosis): -supratherapeutic INR on this admission Patient should stop home dose warfarin (Home dose: Coumadin 2 mg once a week and 1 mg daily on the other 6 days of a week) and INR should be measured closely with coumadin clinic and primary care doctor. Peak INR of 7.2 on 03/02/19 and coumadin had been held for several days with INR on 03/05/19 as 3.8 Recommend that when INR is less than 3, that coumadin should be resumed as 0.5 mg daily to prevent recurrence of supratherapeutic INR. (12) Prolonged Q-T interval on ECG: QTC was 539 on 02/24/19 EKG but since then has been shorter intervals to 473 by 02/26/19 (13) Depression: Continue lexapro and remeron (14) OAB (overactive bladder): Oxybutinin 5 mg BID (15) DVT prophylaxis: supratherapeutic INR (16) Hypernatremia: serum sodium plateau a 148 on this admission serum sodium is 143 on 03/03/19 after 0.45% sodium saline IV fluids and free water held off IV fluids on 03/03/19 serum sodium on 03/04/19 is 144 serum sodium on 03/05/19 is 145 Patient will also need repeat serum sodium and serum potassium levels by primary care doctor Discharge Diagnosis Enterococcus Fecalis bacteremia, sepsis, left Hydronephrosis, possible acute pyelonephritis, acute cystitis urinary tract infection, hypernatremia, supratherapeutic INR, Hypernatremia, Hypokalemia, coronary artery disease Discharge Instructions Patient to be discharge with amoxicillin 500 mg TID for 4 more days Patient should stop home dose warfarin (Home dose: Coumadin 2 mg once a week and 1 mg daily on the other 6 days of a week) and INR should be measured closely with coumadin clinic and primary care doctor. Peak INR of 7.2 on 03/02/19 and coumadin had been held for several days with INR on 03/04/19 as 5.1. INR on 03/05/19 is 3.8. Recommend that when INR is less than 3, that coumadin should be resumed as 0.5 mg daily to prevent recurrence of supratherapeutic INR. Patient will be discharged to [facility] and patient may have INR drawn by Friday03/08/19 as outpatient 03/09/2019 1:40 PM Provider DO Jg Kelly [facility] Patient will also need repeat serum sodium and serum potassium levels by primary care doctor Patient has discharge medication of potassium 10 meq daily for 5 more days Urology service suspects that hydronephrosis is related to infection and recommended on 02/25/19 of antibiotics and repeat renal ultrasound in 3 to 4 weeks with follow-up with urologist Dr Mitchell outpatient Please, follow up at [facility] Urology Office with Dr. Hernández on FridayMarch 15 at 10:15 am. *This office is located at [address] [place] [address] in [place]. If you need to change this appointment, call the office at [phone]. Total Time Total Time Spent Total Time Spent (In Minutes): 40 minutes Total Time Includes: Examination of the Patient, Discharge Planning, Medication Reconciliation and Communication With Other Providers Discharge Plan Discharge Items Patient Disposition: Personal Skilled Nursing Reason For Visit: UTI,INCREASED CONFUSION Discharge Diagnosis: Enterococcus Fecalis bacteremia, sepsis, left Hydronephrosis, possible acute pyelonephritis, acute cystitis urinary tract infection, hypernatremia, supratherapeutic INR, Hypernatremia, Hypokalemia, coronary artery disease Condition: Fair Discharge Goals: Improve disease control Activity: Resume your previous activity Non-emergency contact: Primary Care Provider Call non-emergency contact if: you have any medication questions Follow-up/Referrals: [facility] Medical [Provider Group] - 03/10/19 10:00 am (Please, follow up at [facility] on FridayMarch 10 at 10:00 am for an ultrasound of your bladder. *[place] at the main lobby of the [facility]. If you need to change this appointment, call the central scheduling department at [phone].) Francisco J Hernández MD [Physician] - 03/15/19 10:15 am (Please, follow up at [facility]'s Urology Office with Dr. Hernández on FridayMarch 15 at 10:15 am. *This office is located at [address] [place] [address] in [place]. If you need to change this appointment, call the office at [phone].) MAURICE ESPINOSA [Primary Care Provider] - Diet: Regular Diet Comment: minced, moist Addtl Provider Instructions: Patient to be discharge with amoxicillin 500 mg TID for 4 more days Patient should stop home dose warfarin (Home dose: Coumadin 2 mg once a week and 1 mg daily on the other 6 days of a week) and INR should be measured closely with coumadin clinic and primary care doctor. Peak INR of 7.2 on 03/02/19 and coumadin had been held for several days with INR on 03/04/19 as 5.1. INR on 03/05/19 is 3.8. Recommend that when INR is less than 3, that coumadin should be resumed as 0.5 mg daily to prevent recurrence of supratherapeutic INR. Patient will be discharged to [facility] and patient may have INR drawn by Friday03/08/19 as outpatient 03/09/2019 1:40 PM Provider DO Jg Kelly [facility] Patient will also need repeat serum sodium and serum potassium levels by primary care doctor Patient has discharge medication of potassium 10 meq daily for 5 more days Urology service suspects that hydronephrosis is related to infection and recommended on 02/25/19 of antibiotics and repeat renal ultrasound in 3 to 4 weeks with follow-up with urologist Dr Mitchell outpatient Please, follow up at [facility] Urology Office with Dr. Hernández on FridayMarch 15 at 10:15 am. *This office is located at [address] [place] [address] in [place]. If you need to change this appointment, call the office at [phone]. Prescriptions: New amoxicillin 500 mg Capsule 500 mg PO TID 4 Days Qty: 12 RF: 0 potassium chloride [Klor-Con M10] 10 mEq Tablet,Er Particles/Crystals 10 meq PO DAILY 5 Days Qty: 5 RF: 0 Continued pantoprazole [Protonix] 40 mg Tablet,Delayed Release (Dr/Ec) 40 mg PO QAM Qty: 0 RF: 0 mirtazapine 15 mg Tablet 15 mg PO HS Qty: 0 RF: 0 acetaminophen 325 mg Tablet 650 mg PO Q4H PRN (Reason: Pain) Qty: 0 RF: 0 gabapentin 100 mg Capsule 100 mg PO HS Qty: 0 RF: 0 oxybutynin chloride 5 mg Tablet 5 mg PO BID Qty: 0 RF: 0 ferrous sulfate 325 mg (65 mg iron) Tablet 325 mg PO BID 30 Days Qty: 60 RF: 3 alendronate 70 mg tablet 70 mg PO WK RF: 0 escitalopram oxalate 20 mg tablet 20 mg PO DAILY RF: 0 Discontinued amoxicillin 500 mg Capsule 500 mg PO UD Qty: 21 RF: 0 oxycodone-acetaminophen 5-325 mg Tablet 1 tab PO TID RF: 0 warfarin 2 mg tablet 2 mg PO WK RF: 0 warfarin 1 mg tablet 1 mg PO 6XWK RF: 0 Stand-Alone Forms: [facility] Discharge Orders: Discharge Order (Routine); Ordered 03/05/19 Ordered By: Ricki Soliz Admission Data Admit Date/Time: 02/24/19 14:35 Attending Provider: Ricki Soliz Admit Provider: Melva Brown Primary Care Provider: MAURICE ESPINOSA Other Providers: Rubén Lane II ; Melva Brown Service: Telemetry Medical Other Interventions: Discharge Summary Assessment (RN) Last Done: 03/05/19 14:42
[2019-03-06] MEDS ORDERED: POTASSIUM CHLORIDE 10 MEQ TABCR PO SCH (09:00)
== END 2019-03-05 17:30 | disposition home or self-care (01) | DRG 872 ==
LOC: ED 09:52 → SUATTDRO 14:35 → 2N 14:35

== ENCOUNTER 2019-08-08 11:57 | Inpatient (IN) ==
[2019-08-08] MEDS ORDERED: PIPERACILLIN/TAZOBACTAM 4.5 GM/120 ML BAG IV ONE (12:20)
[2019-08-08] MEDS ORDERED: PIPERACILL/TAZOBAC CONSULT ACTIVE PRN ×2 (12:20→17:39)
[2019-08-08] MEDS ORDERED: SODIUM CHLORIDE 0.9% 1000ML 500 ML IV ONE ×2 (12:20→13:34)
[2019-08-08 12:52] LABS: Appearance Urine Turbid (Clear); Bacteria Urine Automated 4+ (Negative); Blood Urine 3+ (Negative); Color Urine Dark Yellow; Glucose Urine UA Negative (Negative); Ketones Urine Trace (Negative); Leukocyte Esterase Urine 3+ (Negative); Nitrite Urine Positive (Negative); Protein Urine Trace (Negative); RBC Urine Automated >30 /hpf (0-4); Specific Gravity Urine 1.014 (1.000-1.030); Urobilinogen Urine Negative (Negative); WBC Urine Automated >30 /hpf (0-5)
--- NOTE | 2019-08-08 13:00 | XRay Report ---
XR chest 1V portable HISTORY: Sepsis COMPARISON: Chest 02/24/2019. FINDINGS: The lungs are clear. Cardiac silhouette is normal in size. No pleural effusions. No pneumot horax. IMPRESSION: No acute process. Electronically signed by: Carlos Ferguson M.D. 08/08/2019 12:59 PM
[2019-08-08 13:04] LABS: Bilirubin Urine 1+ (Negative); Ictotest Urine Positive (Negative)
[2019-08-08 13:10] LABS: Basophils # (auto) 0.01 K/uL (0-0.2); Basophils % (auto) 0.1 %; Eosinophils # (auto) 0.04 K/uL (0-0.5); Eosinophils % (auto) 0.5 %; Hematocrit (blood only) 41.7 % (37-47); Hemoglobin 14.1 g/dL (12.0-16.0); Immature Granulocytes # (auto) 0.01 K/uL (0.00-0.02); Immature Granulocytes % (auto) 0.1 %; Lymphocytes # (auto) 1.16 K/uL (1.2-3.4); Lymphocytes % (auto) 14.6 %; Mean Corpuscular Hemoglobin 34.9 pg (25-34); Mean Corpuscular Hgb Conc 33.8 g/dL (32-36); Mean Corpuscular Volume 103.2 fL (80-100); Mean Platelet Volume 9.1 fL (7.4-10.4); Monocytes # (auto) 0.95 K/uL (0.11-0.59); Monocytes % (auto) 11.9 %; Neutrophils % (auto) 72.8 %; Platelet Count 211 K/uL (130-400); RDW Coefficient of Variation 13.4 % (11.5-14.5); RDW Standard Deviation 50.9 fL (36.4-46.3); Red Blood Count 4.04 M/uL (4.2-5.4); White Blood Count 7.97 K/uL (4.8-10.8)
[2019-08-08 13:20] LABS: INR 2.8 (0.9-1.1); Partial Thromboplastin Ratio 1.1; Partial Thromboplastin Time 29.3 Seconds (21.0-31.0); Prothrombin Time 26.3 Seconds (9.0-12.0)
[2019-08-08 13:24] LABS: Albumin Level 2.9 gm/dl (3.4-5.0); BUN Creatinine Ratio 14.7 (10-20); Calcium 8.6 mg/dl (8.5-10.1); Creatinine Clr Calc Pharmacy 30.8 ml/min; Est GFR (African American) 56.6; Est GFR (Non-African American) 48.8; Potassium 4.1 mmol/L (3.5-5.1)
[2019-08-08 13:32] LABS: Albumin Globulin Ratio 0.7 (0.9-2); Bilirubin,Total 1.1 mg/dl (0.2-1); Total Protein 6.9 gm/dl (6.4-8.2)
--- NOTE | 2019-08-08 13:38 | CT Scan Report ---
HEAD CT NONCONTRAST CT DOSE: 537.48 mGy.cm HISTORY: AMS eval for bleed TECHNIQUE: Multiaxial CT images of the head were performed without the use of intravenous contrast. A utomated exposure control was utilized for this study. A dose lowering technique was utilized adheri ng to the principles of ALARA. Comparison: Head CT 02/24/2019. Findings: The paranasal sinuses and mastoid air cells are clear. The calvarium and skull base are int act. There is no mass, hematoma, midline shift, acute infarct. White matter hypodensity is nonspecifi c but suggestive of microvascular ischemic change. The ventricles and sulci demonstrate mild age-rela shanae involutional changes. Stable ventricular prominence. Impression: No significant change compared to the prior study. No acute intracranial abnormality. Electronically signed by: Carlos Ferguson M.D. 08/08/2019 1:37 PM
[2019-08-08] MEDS ORDERED: SODIUM CHLORIDE 0.9% 1000ML 1,000 ML IV ONE (14:59)
[2019-08-08] MEDS ORDERED: IOVERSOL 100ml IV PRN (15:51)
--- NOTE | 2019-08-08 16:20 | History & Physical Report ---
Date of Service August 08, 2019 Assessment & Plan (1) Sepsis: (2) Metabolic encephalopathy: (3) UTI (urinary tract infection): This is a 88-year-old female who has significant past medical history of atrial fibrillation anticoagulated with warfarin, HTN, HLD, nonobstructive CAD, CKD stage III, depression, history of DVT, OAB, history of nephrolithiasis, who presents to [facility] from [facility] secondary to right neck and arm pain x 1 day. In ED patient initially hypotensive systolic blood pressure less than 100. CBC relatively unremarkable, no leukocytosis. Patient with significant transaminitis AST 1,132, ALT 758, alkaline phosphatase 300, total bili 1.1 Lactic acid elevated 2.7 Electrolyte and renal function unremarkable Urinalysis consistent with UTI: Positive nitrites, leukocyte esterase, WBC, bacteria In ED patient received 1 L of IV fluid and IV Zosyn for UTI Transaminitis not worked up Upon admission patient technically does not meet SIRS/sepsis criteria per CMS guidelines (only hypotension - no leukocytosis, tachycardia, elevated RR) However in setting of hypotension, elevated lactic acid, AMS, active UTI/likely choledocholithiasis and cholecystitis clinically patient appears septic Upon admission pt Admit to PCU Stat CT scan of abdomen pelvis reveals: slightly dense filling defect within the distal common bile duct likely representing a common bile duct stone. This likely accounts for the bile duct dilatation and distended gallbladder. There is also pericholecystic fluid. Therefore, these findings likely represent developing acute cholecystitis. ERCP is recommended for further evaluation. Stat RUQ U/S 1L IVF bolus x 1 now followed by Maintenance IVF until re evaluated in am continue IV Zosyn for UTI and cholecystitis Repeat lactic acid, CMP at 5 PM Obtain APAP level, hepatitis panel Consult GI for concern for choledocholithiasis, transaminitis Consult surgery in setting of acute cholecystitis Clear liquid diet for today, n.p.o. after midnight Trend lactic acid until normalizes (4) Transaminitis: CT scan abd/pelvis:A slightly dense filling defect within the distal common bile duct likely representing a common bile duct stone. This likely accounts for the bile duct dilatation and distended gallbladder. There is also pericholecystic fluid. Therefore, these findings likely represent developing acute cholecystitis. ERCP is recommended for further evaluation. RUQ U/S pending APAP level pending, hepatitis panel pending likely in setting of acute gallbladder/biliary pathology but need to r/o other causes including APAP toxicity, hepatitis, shock liver GI Dr. Salgado consulted (5) Hydronephrosis, left: CT scan abd/pelvis: Re demonstration of the moderate left hydroureteronephrosis to the level of the distal ureter where the ureter tapers likely secondary to the urothelial thickening. This could be seen in the setting of a chronic infection or possibly neoplastic process. Of note, this area is not well visualized due to metallic artifact from the left hip prosthesis. Urology consultation recommended for further evaluation. 3. Persistent bladder wall thickening consistent with a nonspecific cystitis. 4. Left-sided nephrolithiasis and a few punctate calculi are noted. Consult urology continue IV zosyn for UTI tx await urine culture (6) Atrial fibrillation: hx of PAF hold metoprolol On warfarin for anticoagulation INR 2.8 Hold warfarin, vitamin K 5 mg IV given to reverse INR due to likely procedure in a.m. (7) CAD (coronary artery disease): hx of nonobstructive CAD no chest pain/sob hold metoprolol for now in setting of hypotension/sepsis (8) HTN (hypertension): Patient hypotensive on admission Currently not taking any oral antihypertensives monitor (9) Hypothyroidism: Check TSH, T4 History of hypothyroidism, patient currently not taking levothyroxine Appears to have been discontinued in the past secondary to pill burden (10) Depression: Continue escitalopram monitor QTC (11) History of DVT (deep vein thrombosis): INR 2.8 Hold warfarin, vitamin K 5 mg IV given to reverse INR due to likely procedure in a.m. (12) DVT prophylaxis: SCD/TEDS for now INR 2.8 Hold warfarin and give vitamin K 5 mg IV to reverse 2/2 likely procedure in am Disposition: Admit to PCU, case management consulted Follow-up: PCP Dr. Valle upon discharge Patient was seen and examined in collaboration with Dr. Mckenzie, please see addendum History of Present Illness Chief Complaint: R arm/neck pain x 1 day. Primary Care Provider: CHRISTINE RICHARDS This is a 88-year-old female who has significant past medical history of atrial fibrillation anticoagulated with warfarin, HTN, HLD, nonobstructive CAD, CKD stage III, depression, history of DVT, OAB, history of nephrolithiasis, who presents to [facility] from [facility] secondary to right neck and arm pain x 1 day. Son and [id number] are at bedside. Son states he received a call from assisted living facility who stated they were sending patient to ER for evaluation of right arm/neck pain. History and ROS unreliable from patient secondary to underlying dementia. Poor history from family as well. When asked patient how she is feeling she states, "I feel fine." She denies any recent fever, chills, sweats, dizziness, lightheadedness, chest pain, shortness of breath, nausea, vomiting, abdominal pain, diarrhea, dysuria, increased urgency or frequency with urination. Again ROS unreliable. Son feels cognitively patient is at her baseline. Allergies Allergy/AdvReac Type Severity Reaction Status Date / Time omeprazole Allergy Unknown distal Verified 02/24/19 11:13 edema-none with pantoprozole Home Medications Home Medications Medication Instructions Recorded Confirmed Type pantoprazole [Protonix] 40 mg PO QAM #0 12/27/15 08/08/19 History acetaminophen 650 mg PO Q4H PRN #0 01/08/17 08/08/19 History mirtazapine 15 mg PO HS #0 tab 01/08/17 08/08/19 History gabapentin 100 mg PO HS #0 03/10/18 08/08/19 History ferrous sulfate 325 mg PO BID 30 Days #60 tab 04/08/18 08/08/19 History alendronate 70 mg PO WK 02/24/19 08/08/19 History escitalopram oxalate 20 mg PO QAM 02/24/19 08/08/19 History metoprolol succinate 12.5 mg PO DAILY 08/08/19 08/08/19 History warfarin 1 mg PO 5XWK 08/08/19 08/08/19 History warfarin 2 mg PO 2XWK 08/08/19 08/08/19 History Past Med/Surg History Medical History NSTEMI (non-ST elevated myocardial infarction) (Resolved) OAB (overactive bladder) (Chronic) History of DVT (deep vein thrombosis) (Chronic) HTN (hypertension) (Chronic) Atrial fibrillation (Chronic) Anticoagulated on Coumadin (Chronic) Osteoarthritis (Chronic) Sciatica (Chronic) Chronic pain (Chronic) Nephrolithiasis (Chronic) Depression (Chronic) Anxiety (Chronic) Hypothyroidism (Chronic) CAD (coronary artery disease) (Chronic) Atrial fibrillation GERD (gastroesophageal reflux disease) HLD (hyperlipidemia) HTN (hypertension) History of DVT (deep vein thrombosis) Migraines UTI (urinary tract infection) Surgical History History of lumbar surgery (Chronic) History of total hip arthroplasty (Chronic) LEFT History of total knee replacement (Chronic) RIGHT H/O lithotripsy (Chronic) 05/29/18. LMA #4. 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: No Beliefs That Will Affect Care: None marital status: / Current Living Situation: Other Current Living Situation Comment: [facility] Feels Safe at Home: Yes Smoking Status: Never smoker Hx Alcohol Use: No Hx Substance Use: No Review of Systems Review of Systems: Unobtainable due to cognitive status Physical Exam Physical Exam: Constitutional: Thin, petite, elderly female, vitals as above, NAD, sitting up in bed, pleasant, conversing easily Head: Normocephalic, Atraumatic Eyes: PERRL, conjunctivae normal, anicteric sclerae ENMT: external ear and nose normal, oropharynx with dry mucous membrane Neck: trachea midline, no thyromegaly normal visual inspection Respiratory: normal respiratory effort, lungs clear to auscultation, no wheeze, rales, rhonchi. Normal insp/exp effort, no accessory muscle use Cardiovascular: RRR, normal S1-S2 no edema Vessels: no JVD or carotid bruit Chest: normal inspection of chest Abdomen: normal bowel sounds, soft, mild tenderness to RUQ, no hepatosplenomegaly Musculoskeletal: no cyanosis or clubbing, extremities motor strength 5/5 Skin: no rashes, warm and dry mild turgor Neurologic: PERRL, EOMI, accommodation nl, no face palsy, no dysarthria CN's II-XI intact bilaterally and moves all extremities Psychiatric: A+O to self and family, place, but not time, euthymic affect Lymphatic: no cervical or axillary lymphadenopathy : deferred Results & Data Vital Signs (Past 12 Hours) Vital Signs Temp Pulse Pulse Resp BP BP Pulse Ox 08/08/19 14:39 64 16 92/51 L 94 08/08/19 13:47 66 16 104/64 95 08/08/19 13:17 66 16 97/52 L 96 08/08/19 13:03 83/60 L 08/08/19 13:00 68 17 08/08/19 12:30 71 18 81/55 L 93 08/08/19 12:28 71 14 90/58 L 94 08/08/19 12:11 36.7 C 73 18 97/57 L 94 08/08/19 12:02 73 17 97/57 L 95 Laboratory Results Short CBC 08/08/19 Range/Units 12:55 WBC 7.97 (4.8-10.8) K/uL Hgb 14.1 (12.0-16.0) g/dL Hct 41.7 (37-47) % Plt Count 211 (130-400) K/uL BMP 08/08/19 12:55 Sodium 143 Potassium 4.1 Chloride 107 Carbon Dioxide 27 BUN 15 Creatinine 1.03 Glucose 95 Calcium 8.6 Liver Function 08/08/19 Range/Units 12:55 Total Bilirubin 1.1 H (0.2-1) mg/dl AST 1132 H (15-37) U/L ALT 758 H (12-78) U/L Alkaline Phosphatase 300 H (45-117) U/L Albumin 2.9 L (3.4-5.0) gm/dl Urine 08/08/19 Range/Units 12:42 Urine Color Dark Yellow Urine Appearance Turbid A (Clear) Urine pH 6.0 (4.5-7.5) Ur Specific [place] 1.014 (1.000-1.030) Urine Protein Trace H (Negative) Urine Glucose (UA) Negative (Negative) Diagnostic Findings Head CT: Impression: No significant change compared to the prior study. No acute intracranial abnormality. CXR: Impression: No significant change compared to the prior study. No acute intracranial abnormality. Abd/pelvis CT: IMPRESSION: 1. A slightly dense filling defect within the distal common bile duct likely representing a common bile duct stone. This likely accounts for the bile duct dilatation and distended gallbladder. There is also pericholecystic fluid. Therefore, these findings likely represent developing acute cholecystitis. ERCP is recommended for further evaluation. 2. Redemonstration of the moderate left hydroureteronephrosis to the level of the distal ureter where the ureter tapers likely secondary to the urothelial thickening. This could be seen in the setting of a chronic infection or possibly neoplastic process. Of note, this area is not well visualized due to metallic artifact from the left hip prosthesis. Urology consultation recommended for further evaluation. 3. Persistent bladder wall thickening consistent with a nonspecific cystitis. 4. Left-sided nephrolithiasis and a few punctate calculi are noted. Medications Administered Short CBC 08/08/19 Range/Units 12:55 WBC 7.97 (4.8-10.8) K/uL Hgb 14.1 (12.0-16.0) g/dL Hct 41.7 (37-47) % Plt Count 211 (130-400) K/uL BMP 08/08/19 12:55 Sodium 143 Potassium 4.1 Chloride 107 Carbon Dioxide 27 BUN 15 Creatinine 1.03 Glucose 95 Calcium 8.6 Liver Function 08/08/19 Range/Units 12:55 Total Bilirubin 1.1 H (0.2-1) mg/dl AST 1132 H (15-37) U/L ALT 758 H (12-78) U/L Alkaline Phosphatase 300 H (45-117) U/L Albumin 2.9 L (3.4-5.0) gm/dl Urine 08/08/19 Range/Units 12:42 Urine Color Dark Yellow Urine Appearance Turbid A (Clear) Urine pH 6.0 (4.5-7.5) Ur Specific [place] 1.014 (1.000-1.030) Urine Protein Trace H (Negative) Urine Glucose (UA) Negative (Negative) Code Status & VTE Plan Code Status Full Code Discussed with son. Wishes to remain full code until living will in place. VTE Prophylaxis Plan VTE Prophylaxis will be ordered: Yes Supervising Physician Co-Signing Physician Notes I, DR. LYLE MCKENZIE, have seen and examined the patient with physician certified physician assistant and would like to comment that this is a 88 year old female with TRANSAMINITIS and found on imaging to have suspected CHOLEDOCHOLITHIASIS (slightly dense filling defect within the distal common bile duct likely representing a common bile duct stone) and distended gallbladder concerning with ACUTE CHOLECYSTITIS -plans include IV Zosyn, IV fluids, gastroenterology consult is aware, and general surgery consult requested -will trend the liver function enzymes, check lipase levels, check for hepatitis labs, check acetaminophen levels -give vitamin K IV to reverse the INR as patient is ANTICOAGULATED ON COUMADIN as outpatient for history of PAROXYSMAL ATRIAL FIBRILLATION. Patients history of DVT appears to be in the distant past Patient also found to have to have other potential sources of SEPSIS and will request urology workup Check thyroid function Agree with other assessment and plans as documented by physician certified physician assistant On physical Exam General: comfortable, no acute pain Abdomen: tenderness of right side, no rebound tenderness Heart: heart rate is controlled Lungs: clear to auscultation bilaterally Extremities: no gross deficits Neuro: patient is a poor historian Patients son Ed Ryland reports family history of focal nodular hyperplasia Patients son Ed Karencristobal [phone] Patients daughter in law Mili [phone] (1) UTI (urinary tract infection) Hematuria presence: without hematuria Urinary tract infection type: site unspecified Qualified Code(s): N39.0 - Urinary tract infection, site not specified (2) CAD (coronary artery disease) Associated angina: without angina Coronary Disease-Associated Artery/Lesion type: [place] artery [place] vs. transplanted heart: [place] heart Qualified Code(s): I25.10 - Atherosclerotic heart disease of [place] coronary artery without angina pectoris (3) Atrial fibrillation Atrial fibrillation type: paroxysmal Qualified Code(s): I48.0 - Paroxysmal atrial fibrillation (4) Depression Depression Type: unspecified Qualified Code(s): F32.9 - Major depressive disorder, single episode, unspecified (5) Hypothyroidism Hypothyroidism type: unspecified Qualified Code(s): E03.9 - Hypothyroidism, unspecified (6) Sepsis Sepsis type: sepsis due to unspecified organism Qualified Code(s): A41.9 - Sepsis, unspecified organism
--- NOTE | 2019-08-08 16:23 | CT Scan Report ---
ABDOMEN AND PELVIS CT WITH IV CONTRAST CT DOSE: 501.70 mGycm HISTORY: elevated LFT TECHNIQUE: Multiaxial CT images of the abdomen and pelvis were performed following the use of intrave nous contrast. A dose lowering technique was utilized adhering to the principles of ALARA. COMPARISON STUDY: Abdomen and pelvis CT 02/24/2019. FINDINGS: The lung bases are clear. No pneumoperitoneum. No pneumatosis. There is a left hip prosthes is. Posterior fusion hardware seen within the lower lumbar spine. No hepatic or splenic masses. The a drenal glands and pancreas enhance normally. Stable 7 mm hypodense lesion within the right kidney. Mu ltiple nonobstructing stones within the left kidney with the largest in the lower pole measuring 12 m m. Moderate left hydroureteronephrosis to the level of the distal ureter where there is urothelial th ickening. This remains unchanged. There is also diffuse bladder wall thickening with a few small blad melanie diverticula. There are few punctate stones within the bladder lumen. No retroperitoneal lymphaden opathy. Distended gallbladder with pericholecystic fluid and a few punctate gallstones. There is also intra and extrahepatic bile duct dilatation with a slightly dense filling defect at the distal commo n bile duct best seen on image 168. This likely represents a distal common bile duct stone resulting in the bile duct dilatation and suspected developing acute cholecystitis. Of note, the bladder and di stal ureters are not well visualized due to metallic artifact from the left hip prosthesis. No bowel wall thickening or obstruction. IMPRESSION: 1. A slightly dense filling defect within the distal common bile duct likely representing a common bi le duct stone. This likely accounts for the bile duct dilatation and distended gallbladder. There is also pericholecystic fluid. Therefore, these findings likely represent developing acute cholecystitis . ERCP is recommended for further evaluation. 2. Redemonstration of the moderate left hydroureteronephrosis to the level of the distal ureter where the ureter tapers likely secondary to the urothelial thickening. This could be seen in the setting o f a chronic infection or possibly neoplastic process. Of note, this area is not well visualized due t o metallic artifact from the left hip prosthesis. Urology consultation recommended for further evalua tion. 3. Persistent bladder wall thickening consistent with a nonspecific cystitis. 4. Left-sided nephrolithiasis and a few punctate calculi are noted. Electronically signed by: Carlos Ferguson M.D. 08/08/2019 4:22 PM
--- NOTE | 2019-08-08 17:29 | Ultrasound Report ---
ABDOMINAL ULTRASOUND, RIGHT UPPER QUADRANT HISTORY: Right upper quadrant pain. Abnormal CT.. COMPARISON: Abdomen and pelvis CT 08/08/2019. FINDINGS: Pancreas: The pancreas demonstrates a normal echotexture. Liver: Moderate intrahepatic bile duct dilatation. No hepatic masses. The liver measures 16 cm in miki gth. Gallbladder: Distended gallbladder with a small amount of pericholecystic fluid. Small stones and slu dge identified within the gallbladder. CBD: 1 cm diameter. Right kidney: No hydronephrosis. IMPRESSION: 1. Distended gallbladder containing a few small stones and sludge. There is also a small amount of pe richolecystic fluid. Findings could represent developing acute cholecystitis in the appropriate clini alla setting. 2. Intra and extra hepatic bile duct dilatation. Electronically signed by: Carlos Ferguson M.D. 08/08/2019 5:28 PM
[2019-08-08] MEDS ORDERED: ONDANSETRON INJ 2 MG/ML 2 ML VIAL IV PRN (17:39)
[2019-08-08] MEDS ORDERED: MAGNESIUM HYDROXIDE SUSP 30 ML UDC PO PRN (17:39)
[2019-08-08] MEDS ORDERED: POLYETHYLENE (MIRALAX) 17 GM PACK PO PRN (17:39)
[2019-08-08] MEDS ORDERED: ALUMINUM/MAGNESIUM SUSP 30 ML UDC PO PRN (17:39)
[2019-08-08 17:54] LABS: Alanine Aminotransferase 560 U/L (12-78); Albumin Level 2.6 gm/dl (3.4-5.0); Aspartate Aminotransferase 718 U/L (15-37); BUN Creatinine Ratio 15.8 (10-20); Blood Urea Nitrogen 13 mg/dl (7-18); Calcium 7.8 mg/dl (8.5-10.1); Carbon Dioxide 24 mmol/L (21-32); Chloride 110 mmol/L (98-107); Creatinine Clr Calc Pharmacy 39.2 ml/min; Est GFR (African American) 75.7; Est GFR (Non-African American) 65.3; Glucose 81 mg/dl (70-99); Potassium 3.6 mmol/L (3.5-5.1); Sodium 144 mmol/L (136-145)
[2019-08-08] MEDS ORDERED: SODIUM CHLORIDE 0.9% 1000ML 1,000 ML IV SCH (18:00)
[2019-08-08] MEDS ORDERED: PHYTONADIONE 5 MG in SODIUM CHLORIDE 0.9% 50 ML IV ONE (18:00)
[2019-08-08 18:05] LABS: Albumin Globulin Ratio 0.8 (0.9-2); Alkaline Phosphatase 251 U/L (45-117); Bilirubin,Total 1.3 mg/dl (0.2-1); Globulin 3.4 gm/dl (2.5-4.0); Troponin I < 0.015 ng/ml (0-0.045)
[2019-08-08 18:11] LABS: Lipase 45 U/L (73-393)
[2019-08-08 18:38] LABS: Hepatitis B Surface Antigen Neg (Neg)
[2019-08-08 19:07] LABS: Hepatitis C IgG 13Yrs+Old_Rflx Neg (Neg)
--- NOTE | 2019-08-08 19:13 | Urology Consultation ---
Date of Consultation August 08, 2019 Assessment & Plan (1) Sepsis: (2) Hydronephrosis, left: Patient on broad-spectrum antibiotics. Left hydronephrosis is similar to what was seen in February 2019. Patient is currently resting and actively eating/drinking. No severe discomfort or changes. Patient's vitals have improved. Is being monitored acutely. Has GI and general surgery consultations to assess gallbladder issues. Agree with plans for IV antibiotics with coverage for UTI as well as anything related to the gallbladder issue. For now we will continue to monitor. Could place stent if sudden changes or other issues concerning for possible pyelonephritis. We will continue to monitor. History of Present Illness Attending Physician: Ricki Soliz MD History of Present Illness Patient admitted with high lactic acid, hypotension, and acute abdominal pain. Underwent scanning and was found to have multiple issues including possible acute cholecystitis/obstruction of bile duct. Has high liver enzymes. Was also found to have acute UTI. Patient has significant left-sided hydronephrosis. No obvious obstructing stones, but imaging is obscured secondary to artifact. At time of assessment, patient is eating dinner. Has no major complaints at this time. States she has been feeling ill over the last few days. Is being monitored closely. Patient's pain is largely upper abdominal. Patient states she has a known history of stones. Is not complaining of any severe major pains in back or flank. Does have UTI-like symptoms. Allergies Allergy/AdvReac Type Severity Reaction Status Date / Time omeprazole Allergy Unknown distal Verified 02/24/19 11:13 edema-none with pantoprozole Home Medications Home Medications Medication Instructions Recorded Confirmed Type pantoprazole [Protonix] 40 mg PO QAM #0 12/27/15 08/08/19 History acetaminophen 650 mg PO Q4H PRN #0 01/08/17 08/08/19 History mirtazapine 15 mg PO HS #0 tab 01/08/17 08/08/19 History gabapentin 100 mg PO HS #0 03/10/18 08/08/19 History ferrous sulfate 325 mg PO BID 30 Days #60 tab 04/08/18 08/08/19 History alendronate 70 mg PO WK 02/24/19 08/08/19 History escitalopram oxalate 20 mg PO QAM 02/24/19 08/08/19 History metoprolol succinate 12.5 mg PO DAILY 08/08/19 08/08/19 History warfarin 1 mg PO 5XWK 08/08/19 08/08/19 History warfarin 2 mg PO 2XWK 08/08/19 08/08/19 History Patient History Medical History NSTEMI (non-ST elevated myocardial infarction) (Resolved) OAB (overactive bladder) (Chronic) History of DVT (deep vein thrombosis) (Chronic) HTN (hypertension) (Chronic) Atrial fibrillation (Chronic) Anticoagulated on Coumadin (Chronic) Osteoarthritis (Chronic) Sciatica (Chronic) Chronic pain (Chronic) Nephrolithiasis (Chronic) Depression (Chronic) Anxiety (Chronic) Hypothyroidism (Chronic) CAD (coronary artery disease) (Chronic) Atrial fibrillation GERD (gastroesophageal reflux disease) HLD (hyperlipidemia) HTN (hypertension) History of DVT (deep vein thrombosis) Migraines UTI (urinary tract infection) Surgical History History of lumbar surgery (Chronic) History of total hip arthroplasty (Chronic) LEFT History of total knee replacement (Chronic) RIGHT H/O lithotripsy (Chronic) 05/29/18. LMA #4. History of cataract surgery (Chronic) History of appendectomy (Chronic) H/O total hip arthroplasty (Chronic) Family History Mother , 70 Pancreatic cancer Father Coronary heart disease Social History Preferred Language: Amharic Communication Ability: Effective Vat Cleaner Required: No Beliefs That Will Affect Care: None marital status: / Current Living Situation: Personal Care Facility Current Living Situation Comment: [facility] Other Information That Helps Us Care for You: No Feels Safe at Home: Yes Safety Concerns: Feels Safe At This Time Smoking Status: Never smoker Hx Alcohol Use: No Hx Substance Use: No Review of Systems Review of Systems: All systems reviewed & are unremarkable except as noted in HPI & below Physical Exam Physical Exam: General: Alert in no acute distress. Patient actively eating/drinking. Hard of hearing. HEENT: Normocephalic Atraumatic. Inspection normal. Cranial Nerves 2-12 Grossly intact. Nares are clear. Neck is supple. Normal inspection of face. Normal inspection of neck. Neurologic: No deficits on inspection. Baseline for motor function and sensory. Psychologic: Normal affect. Respiratory: Nonlabored. No use of accessory muscles. No tachypnea or dyspnea. Cardiovascular: No tachycardia Skin: [place] and Dry. No rashes or visible lesions. Extremities: Moving without issues. No motor deficits on inspection Lymphatics: No edema Abdomen: Moderately distended. No rebound or guarding. Results & Data Vital Signs (Past 12 Hours) Vital Signs Temp Pulse Pulse Resp BP BP Pulse Ox 08/08/19 18:55 36.6 C 54 L 20 127/72 92 08/08/19 16:29 61 20 115/58 L 96 08/08/19 16:15 61 20 115/58 L 96 08/08/19 15:30 70 16 103/57 L 08/08/19 15:00 67 21 104/58 L 08/08/19 14:39 64 16 92/51 L 94 08/08/19 13:47 66 16 104/64 95 08/08/19 13:17 66 16 97/52 L 96 08/08/19 13:03 83/60 L 08/08/19 13:00 68 17 08/08/19 12:30 71 18 81/55 L 93 08/08/19 12:28 71 14 90/58 L 94 08/08/19 12:11 36.7 C 73 18 97/57 L 94 08/08/19 12:02 73 17 97/57 L 95 PG Care Time/CCT Total # of Minutes Spent Total Time Spent with Patient: Total time spent is greater than 50% in coordination of care (as documented) at patient's floor/unit and/or counseling patient: (1) Sepsis Sepsis type: sepsis due to unspecified organism Qualified Code(s): A41.9 - Sepsis, unspecified organism
[2019-08-08] MEDS: SODIUM CHLORIDE 0.9% 1000ML 1,000 ML IV SCH (19:17)
[2019-08-08] MEDS: PIPERACILLIN/TAZOBACTAM 3.375 GM in DEXTROSE 5% 100 ML IV SCH (19:17)
--- NOTE | 2019-08-08 19:42 | Emergency Department Note ---
Entered by Liv Kapoor acting as a scribe for History of Present Illness General Chief complaint: Illness Source: patient Mode of arrival: other (nursing staff) History of Present Illness Onset (ago): day(s) (a few) Location: head Pain Consistency: + other (constant) Current Pain Intensity: 0 Quality: + other (weakness) Associated symptoms: + denies other symptoms (She denies any headache, neck/arm pain, chest pain, SOB, abdominal pain, dysuria, numbness in the extremities, and rhinorrhea), + confusion, + cough and + other (lethargy, right arm and neck pain) The patient is an 89 year old female who presents to the Emergency Room with complaints of constant weakness that began a few days ago. Per the nursing staff, the patient, who resides at [facility], was complaining of right arm and right neck pain. Nursing staff notes that the [facility] staff complained of increased confusion and lethargy. The patient complains of persistent generalized weakness but she states that she has no neck pain or arm pain. She complains of a minor cough. The patient denies any current pain. She denies any headache, neck/arm pain, chest pain, SOB, abdominal pain, dysuria, numbness in the extremities, and rhinorrhea. Home Medications Home Medications Medication Instructions Recorded Confirmed Type pantoprazole [Protonix] 40 mg PO QAM #0 12/27/15 08/08/19 History acetaminophen 650 mg PO Q4H PRN #0 01/08/17 08/08/19 History mirtazapine 15 mg PO HS #0 tab 01/08/17 08/08/19 History gabapentin 100 mg PO HS #0 03/10/18 08/08/19 History ferrous sulfate 325 mg PO BID 30 Days #60 tab 04/08/18 08/08/19 History alendronate 70 mg PO WK 02/24/19 08/08/19 History escitalopram oxalate 20 mg PO QAM 02/24/19 08/08/19 History metoprolol succinate 12.5 mg PO DAILY 08/08/19 08/08/19 History warfarin 1 mg PO 5XWK 08/08/19 08/08/19 History warfarin 2 mg PO 2XWK 08/08/19 08/08/19 History Allergies Allergy/AdvReac Type Severity Reaction Status Date / Time omeprazole Allergy Unknown distal Verified 02/24/19 11:13 edema-none with pantoprozole Past Med/Surg History Medical History NSTEMI (non-ST elevated myocardial infarction) (Resolved) OAB (overactive bladder) (Chronic) History of DVT (deep vein thrombosis) (Chronic) HTN (hypertension) (Chronic) Atrial fibrillation (Chronic) Anticoagulated on Coumadin (Chronic) Osteoarthritis (Chronic) Sciatica (Chronic) Chronic pain (Chronic) Nephrolithiasis (Chronic) Depression (Chronic) Anxiety (Chronic) Hypothyroidism (Chronic) CAD (coronary artery disease) (Chronic) Atrial fibrillation GERD (gastroesophageal reflux disease) HLD (hyperlipidemia) HTN (hypertension) History of DVT (deep vein thrombosis) Migraines UTI (urinary tract infection) Surgical History History of lumbar surgery (Chronic) History of total hip arthroplasty (Chronic) LEFT History of total knee replacement (Chronic) RIGHT H/O lithotripsy (Chronic) 05/29/18. LMA #4. History of cataract surgery (Chronic) History of appendectomy (Chronic) H/O total hip arthroplasty (Chronic) Family History Mother , 70 Pancreatic cancer Father Coronary heart disease Social History Preferred Language: Mohawk Communication Ability: Effective Simplex Operator Required: No Beliefs That Will Affect Care: None marital status: / Current Living Situation: Personal Care Facility Current Living Situation Comment: [facility] Other Information That Helps Us Care for You: No Feels Safe at Home: Yes Safety Concerns: Feels Safe At This Time Smoking Status: Never smoker Hx Alcohol Use: No Hx Substance Use: No Review of Systems See HPI for pertinent positives & negatives. and A total of 10 systems reviewed and were otherwise negative Physical Exam Vital Signs Vital Signs - 24 hr 08/08/19 12:02 08/08/19 12:11 08/08/19 12:28 Temperature 36.7 C Temperature Source Oral Sepsis Recent Fever Within 48 Hours Yes Sepsis New/Unexplained Change in Mental Status No Sepsis Action Taken by Nursing No Action Required Pulse Rate 73 73 71 Pulse Rate [Apical] Pulse Rate from SpO2 Sensor 73 73 71 Respiratory Rate 17 18 14 Respiratory Effort / Characteristics Non-Labored Spontaneous Respiratory Depth Normal Respiratory Pattern Regular Blood Pressure 97/57 L 97/57 L 90/58 L Blood Pressure [Right Arm] Blood Pressure Mean 70 70 68 Blood Pressure Mean [Right Arm] Pulse Oximetry 95 94 94 Oxygen Delivery Method Room Air 08/08/19 12:30 08/08/19 13:00 08/08/19 13:03 Temperature Temperature Source Sepsis Recent Fever Within 48 Hours Sepsis New/Unexplained Change in Mental Status Sepsis Action Taken by Nursing Pulse Rate 71 68 Pulse Rate [Apical] Pulse Rate from SpO2 Sensor 71 Respiratory Rate 18 17 Respiratory Effort / Characteristics Respiratory Depth Respiratory Pattern Blood Pressure 81/55 L 83/60 L Blood Pressure [Right Arm] Blood Pressure Mean 63 67 Blood Pressure Mean [Right Arm] Pulse Oximetry 93 Oxygen Delivery Method 08/08/19 13:17 08/08/19 13:47 08/08/19 14:39 Temperature Temperature Source Sepsis Recent Fever Within 48 Hours Sepsis New/Unexplained Change in Mental Status Sepsis Action Taken by Nursing Pulse Rate 66 Pulse Rate [Apical] 66 64 Pulse Rate from SpO2 Sensor 66 Respiratory Rate 16 16 16 Respiratory Effort / Characteristics Respiratory Depth Respiratory Pattern Blood Pressure 97/52 L Blood Pressure [Right Arm] 104/64 92/51 L Blood Pressure Mean 67 Blood Pressure Mean [Right Arm] 77 64 Pulse Oximetry 96 95 94 Oxygen Delivery Method Room Air Room Air 08/08/19 15:00 Temperature Temperature Source Sepsis Recent Fever Within 48 Hours Sepsis New/Unexplained Change in Mental Status Sepsis Action Taken by Nursing Pulse Rate 67 Pulse Rate [Apical] Pulse Rate from SpO2 Sensor Respiratory Rate 21 Respiratory Effort / Characteristics Respiratory Depth Respiratory Pattern Blood Pressure 104/58 L Blood Pressure [Right Arm] Blood Pressure Mean 73 Blood Pressure Mean [Right Arm] Pulse Oximetry Oxygen Delivery Method Constitutional: Vital signs reviewed. Eyes: Pupils are equal round reactive to light. Conjunctiva are noninjected. ENT: Pharynx is clear without erythema or exudate. Mucous membranes are moist. Neck supple without meningeal signs. Respiratory: Clear to auscultation bilaterally. Breath sounds are equal bilaterally. Cardiovascular: Regular rate and rhythm. No rubs or gallops. GI: Soft, nondistended and nontender. Bowel sounds are present. Musculoskeletal: No peripheral edema. No lower extremity tenderness. Integumentary: No cyanosis. Neurological: The patient is awake and alert. Cranial nerves II-XII are intact. Motor is 5 out of 5 all extremities. Sensation is intact to light touch all extremities. Normal speech. No pronator drift. No limb ataxia. No facial droop detected. Psychiatric: Normal affect. Course 1212: The patient was evaluated in room B02. A complete history and physical exam was performed. 1328: I reassessed the patient, and she had orthostatic hypertension. Fluids were ordered. 1336: I reevaluated the patient, and her blood pressure was 102/57. I discussed her test results with her and her family. The antibiotics were not given yet, because the blood cultures were just drawn. 1416: I spoke with Crystal Easley PA-C, about the patient's case. She will further evaluate the patient [facility] Consult[facility] Consultation #1: I spoke with Crystal Easley PA-C, about the patient's case. She will further evaluate the patient [facility] Time: 14:16 Administered Medications Piperacillin Sod/Tazobactam (Sod 3.375 gm/ Dextrose) 115 mls @ 28.75 mls/hr IV Q8H YASHIRA; Protocol Stop: 08/10/19 17:59 Last Admin: 08/08/19 19:17 Dose: 28.8 mls/hr Documented by: [id number] Sodium Chloride (Nss 1000ml) 1,000 mls @ 125 mls/hr IV .Q8H YASHIRA Stop: 09/07/19 18:14 Last Admin: 08/08/19 19:17 Dose: 125 mls/hr Documented by: [id number] Ioversol (Optiray 320 100ml) 89 ml IV ONCE PRN PRN Reason: Interaction Checking Stop: 08/12/19 15:50 Last Admin: 08/08/19 15:51 Dose: 89 ml Documented by: [id number] Discontinued Medications Sodium Chloride (Nss 1000ml) 500 mls @ 999 mls/hr IV .Q31M ONE Stop: 08/08/19 12:50 Last Infusion: 08/08/19 13:54 Dose: 0 mls/hr Documented by: [id number] Admin: 08/08/19 13:22 Dose: 999 mls/hr Documented by: [id number] Piperacillin Sod/Tazobactam Sod (Zosyn) 4.5 gm in 120 mls @ 240 mls/hr IV NOW ONE Stop: 08/08/19 12:49 Last Infusion: 08/08/19 14:30 Dose: 0 mls/hr Documented by: [id number] Admin: 08/08/19 13:48 Dose: 240 mls/hr Documented by: [id number] Sodium Chloride (Nss 1000ml) 500 mls @ 999 mls/hr IV .Q31M ONE Stop: 08/08/19 14:04 Last Infusion: 08/08/19 14:30 Dose: 0 mls/hr Documented by: [id number] Admin: 08/08/19 13:59 Dose: 999 mls/hr Documented by: [id number] Sodium Chloride (Nss 1000ml) 1,000 mls @ 999 mls/hr IV .Q1H1M ONE Stop: 08/08/19 15:59 Last Infusion: 08/08/19 17:15 Dose: 0 mls/hr Documented by: [id number] Admin: 08/08/19 15:33 Dose: 999 mls/hr Documented by: [id number] Sodium Chloride (Nss 1000ml) 1,000 mls @ 75 mls/hr IV .[id number] YASHIRA Stop: 09/07/19 17:59 Last Admin: 08/08/19 19:13 Dose: Not Given Documented by: [id number] Phytonadione 5 mg/ Sodium (Chloride) 50.5 mls @ 101 mls/hr IV ONE ONE Stop: 08/08/19 18:29 Last Infusion: 08/08/19 19:02 Dose: 0 mls/hr Documented by: [id number] Admin: 08/08/19 18:32 Dose: 101 mls/hr Documented by: [id number] Medical Decision Making Differential Diagnosis The differential diagnosis includes: sepsis, bacteremia, UTI, pyelonephritis, pneumonia, and ICH Medical Records Attestation: I reviewed the patient's medical records. I did perform a limited focused review of portions of the patient's old chart on the electronic medical record. She was admitted for pyelonephritis in February of 2049, and one of the blood culture showed faecalis during this visit. Home Medications Current Medication List: was personally reviewed by me Laboratory Data Attestation: I reviewed the patient's lab results. Result diagrams: 08/08/19 12:55 08/08/19 17:29 Lab Results 08/08/19 08/08/19 08/08/19 Range/Units 12:42 12:55 12:55 WBC 7.97 (4.8-10.8) K/uL RBC 4.04 L (4.2-5.4) M/uL Hgb 14.1 (12.0-16.0) g/dL Hct 41.7 (37-47) % MCV 103.2 H (80-100) fL MCH 34.9 H (25-34) pg MCHC 33.8 (32-36) g/dL RDW Std Deviation 50.9 H (36.4-46.3) fL RDW Coeff of Demetrio 13.4 (11.5-14.5) % Plt Count 211 (130-400) K/uL MPV 9.1 (7.4-10.4) fL Immature Gran % (Auto) 0.1 % Neut % (Auto) 72.8 % Lymph % (Auto) 14.6 % Dare % (Auto) 11.9 % Eos % (Auto) 0.5 % Baso % (Auto) 0.1 % Immature Gran # (Auto) 0.01 (0.00-0.02) K/uL Neut # (Auto) 5.80 (1.4-6.5) K/uL Lymph # (Auto) 1.16 L (1.2-3.4) K/uL Dare # (Auto) 0.95 H (0.11-0.59) K/uL Eos # (Auto) 0.04 (0-0.5) K/uL Baso # (Auto) 0.01 (0-0.2) K/uL PT 26.3 H (9.0-12.0) Seconds INR 2.8 H (0.9-1.1) APTT 29.3 (21.0-31.0) Seconds PTT Ratio 1.1 Sodium (136-145) mmol/L Potassium (3.5-5.1) mmol/L Chloride (98-107) mmol/L Carbon Dioxide (21-32) mmol/L Anion Gap (3-11) BUN (7-18) mg/dl Creatinine (0.6-1.2) mg/dl Est Cr Clr Drug Dosing ml/min Est GFR ( Amer) Est GFR (Non-Af Amer) BUN/Creatinine Ratio (10-20) Glucose (70-99) mg/dl Lactate (0.4-2.0) mmol/L Calcium (8.5-10.1) mg/dl Total Bilirubin (0.2-1) mg/dl AST (15-37) U/L ALT (12-78) U/L Alkaline Phosphatase (45-117) U/L Total Protein (6.4-8.2) gm/dl Albumin (3.4-5.0) gm/dl Globulin (2.5-4.0) gm/dl Albumin/Globulin Ratio (0.9-2) Urine Color Dark Yellow Urine Appearance Turbid A (Clear) Urine pH 6.0 (4.5-7.5) Ur Specific [place] 1.014 (1.000-1.030) Urine Protein Trace H (Negative) Urine Glucose (UA) Negative (Negative) Urine Ketones Trace H (Negative) Urine Blood 3+ H (Negative) Urine Nitrite Positive A (Negative) Urine Bilirubin 1+ H (Negative) Urine Urobilinogen Negative (Negative) Ur Leukocyte Esterase 3+ H (Negative) Urine WBC (Auto) >30 H (0-5) /hpf Urine RBC (Auto) >30 H (0-4) /hpf U Hyaline Cast (Auto) 1-5 (0-5) /lpf U Epithel Cells (Auto) 10-20 H (0-5) /lpf Urine Bacteria (Auto) 4+ H (Negative) Urine Yeast Not Reportable 08/08/19 08/08/19 Range/Units 12:55 12:55 WBC (4.8-10.8) K/uL RBC (4.2-5.4) M/uL Hgb (12.0-16.0) g/dL Hct (37-47) % MCV (80-100) fL MCH (25-34) pg MCHC (32-36) g/dL RDW Std Deviation (36.4-46.3) fL RDW Coeff of Demetrio (11.5-14.5) % Plt Count (130-400) K/uL MPV (7.4-10.4) fL Immature Gran % (Auto) % Neut % (Auto) % Lymph % (Auto) % Dare % (Auto) % Eos % (Auto) % Baso % (Auto) % Immature Gran # (Auto) (0.00-0.02) K/uL Neut # (Auto) (1.4-6.5) K/uL Lymph # (Auto) (1.2-3.4) K/uL Dare # (Auto) (0.11-0.59) K/uL Eos # (Auto) (0-0.5) K/uL Baso # (Auto) (0-0.2) K/uL PT (9.0-12.0) Seconds INR (0.9-1.1) APTT (21.0-31.0) Seconds PTT Ratio Sodium 143 (136-145) mmol/L Potassium 4.1 (3.5-5.1) mmol/L Chloride 107 (98-107) mmol/L Carbon Dioxide 27 (21-32) mmol/L Anion Gap 9.0 (3-11) BUN 15 (7-18) mg/dl Creatinine 1.03 (0.6-1.2) mg/dl Est Cr Clr Drug Dosing 30.8 ml/min Est GFR ( Amer) 56.6 Est GFR (Non-Af Amer) 48.8 BUN/Creatinine Ratio 14.7 (10-20) Glucose 95 (70-99) mg/dl Lactate 2.7 H* (0.4-2.0) mmol/L Calcium 8.6 (8.5-10.1) mg/dl Total Bilirubin 1.1 H (0.2-1) mg/dl AST 1132 H (15-37) U/L ALT 758 H (12-78) U/L Alkaline Phosphatase 300 H (45-117) U/L Total Protein 6.9 (6.4-8.2) gm/dl Albumin 2.9 L (3.4-5.0) gm/dl Globulin 4.0 (2.5-4.0) gm/dl Albumin/Globulin Ratio 0.7 L (0.9-2) Urine Color Urine Appearance (Clear) Urine pH (4.5-7.5) Ur Specific [place] (1.000-1.030) Urine Protein (Negative) Urine Glucose (UA) (Negative) Urine Ketones (Negative) Urine Blood (Negative) Urine Nitrite (Negative) Urine Bilirubin (Negative) Urine Urobilinogen (Negative) Ur Leukocyte Esterase (Negative) Urine WBC (Auto) (0-5) /hpf Urine RBC (Auto) (0-4) /hpf U Hyaline Cast (Auto) (0-5) /lpf U Epithel Cells (Auto) (0-5) /lpf Urine Bacteria (Auto) (Negative) Urine Yeast Imaging Data Radiologist's Impression: Radiology results as stated below per my review and the radiologist's interpretation: HEAD CT NONCONTRAST CT DOSE: 537.48 mGy.cm HISTORY: AMS eval for bleed TECHNIQUE: Multiaxial CT images of the head were performed without the use of intravenous contrast. Automated exposure control was utilized for this study. A dose lowering technique was utilized adhering to the principles of ALARA. Comparison: Head CT 02/24/2019. Findings: The paranasal sinuses and mastoid air cells are clear. The calvarium and skull base are intact. There is no mass, hematoma, midline shift, acute infarct. White matter hypodensity is nonspecific but suggestive of microvascular ischemic change. The ventricles and sulci demonstrate mild age-related involutional changes. Stable ventricular prominence. Impression: No significant change compared to the prior study. No acute intracranial abnormality. Electronically signed by: Carlos Ferguson M.D. 08/08/2019 1:37 PM XR chest 1V portable HISTORY: Sepsis COMPARISON: Chest 02/24/2019. FINDINGS: The lungs are clear. Cardiac silhouette is normal in size. No pleural effusions. No pneumothorax. IMPRESSION: No acute process. Electronically signed by: Carlos Ferguson M.D. 08/08/2019 12:59 PM Blood Pressure Blood Pressure Findings: Low blood pressure Blood Pressure Disposition: further management by hospitalist JOHN Narrative I did evaluate the patient as noted above. The patient was sent over for increased confusion. I was called to the bedside by the nurse because she was concerned about a right facial droop. I carefully examined the patient and do not note any neurologic deficit or facial droop. She was reported to have a fever at the intermediate and given Tylenol there. She does have a prior history of bacteremia and UTI. IV access was established. The patient was placed on a continuous hall monitor. Blood pressure is slightly low. I did treated with normal saline IV. I did order and personally reviewed the images of the patient's chest x-ray as described above. There is no evidence of pneumonia. I did order a urine analysis. She does have a UTI. I did order blood cultures. I did treat the patient with Zosyn IV based on her prior blood culture. I did order and review the patient's blood work as noted in the electronic medical record. Her white count is not elevated. She is not anemic. INR is therapeutic at 2.8. LFTs are significantly elevated. Because the patient is on Coumadin and was reported to have some confusion, I did order a CT of the head. I did review the images myself as well as the radiology report as described above. There is no evidence of bleed or acute abnormality. I did discuss the test results with the patient and her family. Her blood pressure did improve after IV fluids. I did recommend hospitalization for further care and evaluation. I did discuss the case with the hospitalist and patient case manager. Impression & Plan AMS (altered mental status), Anticoagulated on Coumadin, UTI (urinary tract infection), Hypotension, Abnormal LFTs (liver function tests) Discharge Plan Visit Data *Final* Discharge Date/Time: 08/08/19 16:29 Chief Complaint: Illness ED Provider: Bebeto Ibanez Discharge Problem: AMS (altered mental status), Anticoagulated on Coumadin, UTI (urinary tract infection), Hypotension, Abnormal LFTs (liver function tests) Patient Disposition: Admitted As Inpatient Discharge Instructions Interventions: ED Discharge Assessment Last Done: 08/08/19 16:29 Discharge Problem: AMS (altered mental status) Qualifiers: Altered mental status type: unspecified Qualified Code(s): R41.82 - Altered mental status, unspecified UTI (urinary tract infection) Qualifiers: Urinary tract infection type: site unspecified Hematuria presence: without hematuria Qualified Code(s): N39.0 - Urinary tract infection, site not specified Hypotension Qualifiers: Hypotension type: unspecified hypotension type Qualified Code(s): I95.9 - Hypotension, unspecified The scribe's documentation has been prepared under my direction and personally reviewed by me in its entirety. I confirm that the note above accurately r eflects all work, treatment, procedures, and medical decision making performed by me.
[2019-08-08] MEDS: FERROUS SULFATE 325 MG TAB PO SCH (20:09)
[2019-08-08] MEDS: GABAPENTIN 100 MG CAP PO SCH (20:09)
[2019-08-08] MEDS: MIRTAZAPINE TAB 15 MG TAB PO SCH (20:09)
[2019-08-09] MEDS: PIPERACILLIN/TAZOBACTAM 3.375 GM in DEXTROSE 5% 100 ML IV SCH ×3 (01:40→19:15)
[2019-08-09] MEDS: SODIUM CHLORIDE 0.9% 1000ML 1,000 ML IV SCH (04:02)
[2019-08-09 06:24] LABS: INR 1.8 (0.9-1.1); Prothrombin Time 17.4 Seconds (9.0-12.0)
[2019-08-09 06:30] LABS: Basophils # (auto) 0.01 K/uL (0-0.2); Basophils % (auto) 0.2 %; Hematocrit (blood only) 36.3 % (37-47); Hemoglobin 11.7 g/dL (12.0-16.0); Immature Granulocytes # (auto) 0.01 K/uL (0.00-0.02); Immature Granulocytes % (auto) 0.2 %; Lymphocytes % (auto) 24.8 %; Mean Corpuscular Hemoglobin 33.6 pg (25-34); Mean Corpuscular Hgb Conc 32.2 g/dL (32-36); Mean Corpuscular Volume 104.3 fL (80-100); Mean Platelet Volume 9.4 fL (7.4-10.4); Monocytes # (auto) 0.35 K/uL (0.11-0.59); Monocytes % (auto) 8.7 %; Neutrophils # (auto) 2.46 K/uL (1.4-6.5); Neutrophils % (auto) 61.1 %; Platelet Count 137 K/uL (130-400); RDW Coefficient of Variation 13.5 % (11.5-14.5); RDW Standard Deviation 51.5 fL (36.4-46.3); Red Blood Count 3.48 M/uL (4.2-5.4); White Blood Count 4.03 K/uL (4.8-10.8)
[2019-08-09 06:45] LABS: Albumin Level 2.2 gm/dl (3.4-5.0); BUN Creatinine Ratio 14.4 (10-20); Calcium 7.4 mg/dl (8.5-10.1); Creatinine Clr Calc Pharmacy 45.7 ml/min; Est GFR (African American) 90.3; Est GFR (Non-African American) 77.9; Potassium 3.7 mmol/L (3.5-5.1)
[2019-08-09 06:48] LABS: Albumin Globulin Ratio 0.7 (0.9-2); Bilirubin,Total 1.4 mg/dl (0.2-1); Globulin 3.1 gm/dl (2.5-4.0); Total Protein 5.3 gm/dl (6.4-8.2)
--- NOTE | 2019-08-09 08:30 | Hospitalist Progress Note ---
Date of Service August 09, 2019 Assessment & Plan (1) Sepsis: This is a 88-year-old female who has significant past medical history of atrial fibrillation anticoagulated with warfarin, HTN, HLD, nonobstructive CAD, CKD stage III, depression, history of DVT, OAB, history of nephrolithiasis, who presents to [facility] from [facility] secondary to right neck and arm pain x 1 day. In ED patient initially hypotensive systolic blood pressure less than 100.Lactic acid elevated 2.7. Upon admission patient technically does not meet SIRS/sepsis criteria per CMS guidelines (only hypotension - no leukocytosis, tachycardia, elevated RR) However in setting of hypotension, elevated lactic acid, AMS, active UTI/likely choledocholithiasis and cholecystitis clinically patient appears septic -IV fluids, IV antibiotics as Zosyn have been given. lactic acid has normalized on admission day - currently on Zosyn (2) Transaminitis: Choledocholithiasis Acute Cholecystitis -admission AST 1132 and ALT 758 with elevated alkaline phosphatase -admission lipase normal -negative acetaminophen levels -hepatitis labs pending -admission imaging to have suspected CHOLEDOCHOLITHIASIS (slightly dense filling defect within the distal common bile duct likely representing a common bile duct stone) and distended gallbladder concerning with ACUTE CHOLECYSTITIS -Liver enzymes trended down with IV fluids -Continue IV Zosyn -Because patient was anticoagulated on coumadin as outpatient vitamin K was given with anticipation of ERCP, as of 08/09/19 AM the INR is 1.8 -gastroenterology and general surgery consultation appreciated (3) UTI (urinary tract infection): -admission urine analysis consistent with UTI: Positive nitrites, leukocyte esterase, WBC, bacteria -follow urine cultures -Continue IV Zosyn (4) Hydronephrosis, left: -[facility] urology was consulted because of urinary tract infection and moderate left hydroureteronephrosis to the level of the distal ureter where the ureter tapers likely secondary to the urothelial thickening -[facility] urology comments that Left hydronephrosis is similar to what was seen in February 2019 (5) Atrial fibrillation: history of PAROXYSMAL ATRIAL FIBRILLATION -is in sinus bradycardia -continue to hold metoprolol -Because patient was anticoagulated on coumadin as outpatient vitamin K was given with anticipation of ERCP, as of 08/09/19 AM the INR is 1.8 (6) CAD (coronary artery disease): History of nonobstructive CAD -no chest pain or respiratory symptoms -metoprolol held for now (7) HTN (hypertension): -Patient hypotensive on admission -blood pressure currently controlled and stable (8) Hypothyroidism: History of hypothyroidism, patient currently not taking levothyroxine -Appears to have been discontinued in the past secondary to pill burden -is euthyroid as TSH of 2 is normal (9) Depression: -can Continue escitalopram (10) History of DVT (deep vein thrombosis): -Patients history of DVT appears to be in the distant past (11) DVT prophylaxis: -SCD/TEDS for now [facility] [phone] Patients daughter in law Mili [phone] Subjective Patient seen and examined this AM after seen by physician general office assistant of the gastroenterology service. Patient is awake and alert. no acute distress. no acute events over night. Patient's nurse reported urinary incontinence. No bowel movement. Patient does not have acute tenderness of abdomen. no vomiting. patient denies symptoms. when discussed about current medical issues, patient does not appear to understand. have discussed with gastroenterology physician general office assistant that consent for procedures need to be obtained from patient's son Physical Exam Constitutional: comfortable Eyes: PERRL, conjunctivae normal, anicteric sclerae EOM intact bilaterally ENMT: external ear and nose normal, oropharynx normal Neck: normal visual inspection Respiratory: normal respiratory effort, lungs clear to auscultation Cardiovascular: Rate/Rhythm: + bradycardic Gastrointestinal (Abdomen): normal bowel sounds, soft, nontender, no hepatosplenomegaly Musculoskeletal: Head/Neck/Chest: normocephalic and head atraumatic Neurologic: PERRL, EOMI, accommodation nl, no face palsy, no dysarthria CN's II-XI intact bilaterally Psychiatric: Orientation: alert Results & Data Vital Signs (Past 12 Hours) Vital Signs Temp Pulse Pulse Resp BP Pulse Ox 08/09/19 06:26 36.4 C L 54 L 19 123/72 98 08/09/19 04:33 36.4 C L 55 L 18 130/74 96 08/08/19 23:58 36.6 C 70 16 134/73 96 08/08/19 22:20 60 (1) UTI (urinary tract infection) Hematuria presence: without hematuria Urinary tract infection type: site unspecified Qualified Code(s): N39.0 - Urinary tract infection, site not specified (2) CAD (coronary artery disease) Associated angina: without angina Coronary Disease-Associated Artery/Lesion type: eek artery [place] vs. transplanted heart: eek heart Qualified Code(s): I25.10 - Atherosclerotic heart disease of eek coronary artery without angina pectoris (3) Atrial fibrillation Atrial fibrillation type: paroxysmal Qualified Code(s): I48.0 - Paroxysmal atrial fibrillation (4) Depression Depression Type: unspecified Qualified Code(s): F32.9 - Major depressive disorder, single episode, unspecified (5) Hypothyroidism Hypothyroidism type: unspecified Qualified Code(s): E03.9 - Hypothyroidism, unspecified (6) Sepsis Sepsis type: sepsis due to unspecified organism Qualified Code(s): A41.9 - Sepsis, unspecified organism
--- NOTE | 2019-08-09 08:38 | Gastrointestinal Consultation ---
Date of Consultation August 09, 2019 Assessment & Plan (1) Transaminitis: 89 year old female with history of dementia, atrial fibrillation on warfarin w/ INR 1.8, HTN, HLD, CAD, CKD-III who presented from facility for right neck and arm pain - on arrival to the ED she was hypotensive w/ elevated lactic acid and was started on IV fluids and broad spectrum ABX w/ Zosyn. Labs w/ transaminitis, underwent CT imaging w/ concern for CBD stone, biliary dilation at 10 mm Transaminitis w/ suspected choledocholithiasis, concern for acute cholecystitis - Consult general surgery - Trend LFTs - Trend INR - Agree w/ IV ABX - Keep pt NPO - Will discuss w/ attending - Consider MRCP - ERCP, timing to be determined after discussing with pt family and attending Thank you for allowing us to participate in the care of this patient. Please call with any acute changes, questions or concerns. Please see addendum below with additional recommendation from my supervising physician. Present on Admission?: Yes (2) AMS (altered mental status): Present on Admission?: Yes Supervising Physician Co-Signing Physician Notes I have seen and examined the patient and discussed the management with KATHRINE Butts. 89 yo fm admitted yesterday with hypotension and now imaging suggestive of gallstones, cbd stone and dilated cbd of 1.0 cm, without fevers or chills currently. PE - alert and oriented though reports of dementia, abd - soft nd +bs, Neuro - alert and oriented, cn's 2-12 intact, skin: no rashes noted Labs reviewed Imaging reviewed ERCP - timing tbd pending surgical plan. History of Present Illness Reason for Consultation: transaminitis Requesting Physician: Martínez Attending Physician: Ricki Soliz MD History of Present Illness 89 year old female with history of dementia, atrial fibrillation on warfarin, HTN, HLD, CAD, CKD-III, depression, history of DVT, history of nephrolithiasis who presents to [facility] ED from facility for evaluation of right neck and arm pain x 1 day - GI asked to evaluae for transaminitis. Pt was seen and evaluated, chart reviewed. No family at bedside. Pt is a poor historian and is unable to provide me with any past medical history. She notes that she feels "fine." She denies any abdominal pain. No nausea, vomiting. She is not sure if she is hungry. Unsure of her last bowel movement but endorses passing gas. Denies any fever, chills, CP, SOB. INR: 2.8 --> 1.8 TB: 1.1 --> 1.3 --> 1.4 AST: 1132 --> 718 --> 341 ALT: 758 --> 560 --> 366 ALKP: 300 --> 251 --> 175 ABD US: Distended gallbladder containing a few small stones and sludge. There is also a small amount of pericholecystic fluid. Findings could represent developing acute cholecystitis in the appropriate clinical setting.Intra and extra hepatic bile duct dilatation. CT ABD/Pelvis: A slightly dense filling defect within the distal common bile duct likely representing a common bile duct stone. This likely accounts for the bile duct dilatation and distended gallbladder. There is also pericholecystic fluid. Therefore, these findings likely represent developing acute cholecystitis. ERCP is recommended for further evaluation. Redemonstration of the moderate left hydroureteronephrosis to the level of the distal ureter where the ureter tapers likely secondary to the urothelial thickening. This could be seen in the setting of a chronic infection or possibly neoplastic process. Of note, this area is not well visualized due to metallic artifact from the left hip prosthesis. Urology consultation recommended for further evaluation.Persistent bladder wall thickening consistent with a nonspecific cystitis.Left-sided nephrolithiasis and a few punctate calculi are noted. Allergies Allergy/AdvReac Type Severity Reaction Status Date / Time omeprazole Allergy Unknown distal Verified 02/24/19 11:13 edema-none with pantoprozole Home Medications Home Medications Medication Instructions Recorded Confirmed Type pantoprazole [Protonix] 40 mg PO QAM #0 12/27/15 08/08/19 History acetaminophen 650 mg PO Q4H PRN #0 01/08/17 08/08/19 History mirtazapine 15 mg PO HS #0 tab 01/08/17 08/08/19 History gabapentin 100 mg PO HS #0 03/10/18 08/08/19 History ferrous sulfate 325 mg PO BID 30 Days #60 tab 04/08/18 08/08/19 History alendronate 70 mg PO WK 02/24/19 08/08/19 History escitalopram oxalate 20 mg PO QAM 02/24/19 08/08/19 History metoprolol succinate 12.5 mg PO DAILY 08/08/19 08/08/19 History warfarin 1 mg PO 5XWK 08/08/19 08/08/19 History warfarin 2 mg PO 2XWK 08/08/19 08/08/19 History Patient History Medical History NSTEMI (non-ST elevated myocardial infarction) (Resolved) OAB (overactive bladder) (Chronic) History of DVT (deep vein thrombosis) (Chronic) HTN (hypertension) (Chronic) Atrial fibrillation (Chronic) Anticoagulated on Coumadin (Chronic) Osteoarthritis (Chronic) Sciatica (Chronic) Chronic pain (Chronic) Nephrolithiasis (Chronic) Depression (Chronic) Anxiety (Chronic) Hypothyroidism (Chronic) CAD (coronary artery disease) (Chronic) Atrial fibrillation GERD (gastroesophageal reflux disease) HLD (hyperlipidemia) HTN (hypertension) History of DVT (deep vein thrombosis) Migraines UTI (urinary tract infection) Surgical History History of lumbar surgery (Chronic) History of total hip arthroplasty (Chronic) LEFT History of total knee replacement (Chronic) RIGHT H/O lithotripsy (Chronic) 05/29/18. LMA #4. 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 Required: No Beliefs That Will Affect Care: None marital status: / Current Living Situation: Personal Care Facility [facility] [employer] [facility] [employer] Other Information That Helps Us Care for You: No Feels Safe at Home: Yes Safety Concerns: Feels Safe At This Time Smoking Status: Never smoker Hx Alcohol Use: No Hx Substance Use: No Review of Systems Review of Systems: Unobtainable due to cognitive status Physical Exam Constitutional: + ill appearing (chornically ill) and + thin; no acute distress Neck: trachea midline Respiratory: normal respiratory effort; no respiratory distress Cardiovascular: Rate/Rhythm: regular rate and regular rhythm Gastrointestinal (Abdomen): Inspection/Auscultation: normal bowel sounds Percussion/Palpation: abdomen soft; abdomen nontender, no guarding and abdomen not rigid Skin: no rashes, warm and dry Results & Data Vital Signs (Past 12 Hours) Vital Signs Temp Pulse Pulse Resp BP Pulse Ox 08/09/19 06:26 36.4 C L 54 L 19 123/72 98 08/09/19 04:33 36.4 C L 55 L 18 130/74 96 08/08/19 23:58 36.6 C 70 16 134/73 96 08/08/19 22:20 60 Laboratory Results 08/09/19 08/09/19 08/09/19 Range/Units 05:59 05:59 05:59 WBC 4.03 L (4.8-10.8) K/uL RBC 3.48 L (4.2-5.4) M/uL Hgb 11.7 L (12.0-16.0) g/dL Hct 36.3 L (37-47) % MCV 104.3 H (80-100) fL MCH 33.6 (25-34) pg MCHC 32.2 (32-36) g/dL RDW Std Deviation 51.5 H (36.4-46.3) fL RDW Coeff of Demetrio 13.5 (11.5-14.5) % Plt Count 137 (130-400) K/uL MPV 9.4 (7.4-10.4) fL Immature Gran % (Auto) 0.2 % Neut % (Auto) 61.1 % Lymph % (Auto) 24.8 % Williams % (Auto) 8.7 % Eos % (Auto) 5.0 % Baso % (Auto) 0.2 % Immature Gran # (Auto) 0.01 (0.00-0.02) K/uL Neut # (Auto) 2.46 (1.4-6.5) K/uL Lymph # (Auto) 1.00 L (1.2-3.4) K/uL Williams # (Auto) 0.35 (0.11-0.59) K/uL Eos # (Auto) 0.20 (0-0.5) K/uL Baso # (Auto) 0.01 (0-0.2) K/uL PT 17.4 H (9.0-12.0) Seconds INR 1.8 H (0.9-1.1) APTT (21.0-31.0) Seconds PTT Ratio Sodium 147 H (136-145) mmol/L Potassium 3.7 (3.5-5.1) mmol/L Chloride 116 H (98-107) mmol/L Carbon Dioxide 24 (21-32) mmol/L Anion Gap 7.0 (3-11) BUN 10 (7-18) mg/dl Creatinine 0.70 (0.6-1.2) mg/dl Est Cr Clr Drug Dosing 45.7 ml/min Est GFR ( Amer) 90.3 Est GFR (Non-Af Amer) 77.9 BUN/Creatinine Ratio 14.4 (10-20) Glucose 72 (70-99) mg/dl Lactate (0.4-2.0) mmol/L Calcium 7.4 L (8.5-10.1) mg/dl Total Bilirubin 1.4 H (0.2-1) mg/dl AST 341 H (15-37) U/L ALT 366 H (12-78) U/L Alkaline Phosphatase 179 H (45-117) U/L Troponin I (0-0.045) ng/ml Total Protein 5.3 L (6.4-8.2) gm/dl Albumin 2.2 L (3.4-5.0) gm/dl Globulin 3.1 (2.5-4.0) gm/dl Albumin/Globulin Ratio 0.7 L (0.9-2) Lipase (73-393) U/L TSH (0.300-4.500) uIu/ml Urine Color Urine Appearance (Clear) Urine pH (4.5-7.5) Ur Specific [place] (1.000-1.030) Urine Protein (Negative) Urine Glucose (UA) (Negative) Urine Ketones (Negative) Urine Blood (Negative) Urine Nitrite (Negative) Urine Bilirubin (Negative) Urine Urobilinogen (Negative) Ur Leukocyte Esterase (Negative) Urine WBC (Auto) (0-5) /hpf Urine RBC (Auto) (0-4) /hpf U Hyaline Cast (Auto) (0-5) /lpf U Epithel Cells (Auto) (0-5) /lpf Urine Bacteria (Auto) (Negative) Urine Yeast Acetaminophen (10-30) ug/ml Hepatitis A IgM Ab Hep Bs Antigen (Neg) Hep B Core IgM Ab Hepatitis C Antibody (Neg) 08/08/19 08/08/19 08/08/19 Range/Units 19:29 17:29 17:29 WBC (4.8-10.8) K/uL RBC (4.2-5.4) M/uL Hgb (12.0-16.0) g/dL Hct (37-47) % MCV (80-100) fL MCH (25-34) pg MCHC (32-36) g/dL RDW Std Deviation (36.4-46.3) fL RDW Coeff of Demetrio (11.5-14.5) % Plt Count (130-400) K/uL MPV (7.4-10.4) fL Immature Gran % (Auto) % Neut % (Auto) % Lymph % (Auto) % Williams % (Auto) % Eos % (Auto) % Baso % (Auto) % Immature Gran # (Auto) (0.00-0.02) K/uL Neut # (Auto) (1.4-6.5) K/uL Lymph # (Auto) (1.2-3.4) K/uL Williams # (Auto) (0.11-0.59) K/uL Eos # (Auto) (0-0.5) K/uL Baso # (Auto) (0-0.2) K/uL PT (9.0-12.0) Seconds INR (0.9-1.1) APTT (21.0-31.0) Seconds PTT Ratio Sodium 144 (136-145) mmol/L Potassium 3.6 (3.5-5.1) mmol/L Chloride 110 H (98-107) mmol/L Carbon Dioxide 24 (21-32) mmol/L Anion Gap 9.0 (3-11) BUN 13 (7-18) mg/dl Creatinine 0.81 (0.6-1.2) mg/dl Est Cr Clr Drug Dosing 39.2 ml/min Est GFR ( Amer) 75.7 Est GFR (Non-Af Amer) 65.3 BUN/Creatinine Ratio 15.8 (10-20) Glucose 81 (70-99) mg/dl Lactate 1.9 2.8 H* (0.4-2.0) mmol/L Calcium 7.8 L (8.5-10.1) mg/dl Total Bilirubin 1.3 H (0.2-1) mg/dl AST 718 H (15-37) U/L ALT 560 H (12-78) U/L Alkaline Phosphatase 251 H (45-117) U/L Troponin I < 0.015 (0-0.045) ng/ml Total Protein 6.0 L (6.4-8.2) gm/dl Albumin 2.6 L (3.4-5.0) gm/dl Globulin 3.4 (2.5-4.0) gm/dl Albumin/Globulin Ratio 0.8 L (0.9-2) Lipase 45 L (73-393) U/L TSH 2.020 (0.300-4.500) uIu/ml Urine Color Urine Appearance (Clear) Urine pH (4.5-7.5) Ur Specific [place] (1.000-1.030) Urine Protein (Negative) Urine Glucose (UA) (Negative) Urine Ketones (Negative) Urine Blood (Negative) Urine Nitrite (Negative) Urine Bilirubin (Negative) Urine Urobilinogen (Negative) Ur Leukocyte Esterase (Negative) Urine WBC (Auto) (0-5) /hpf Urine RBC (Auto) (0-4) /hpf U Hyaline Cast (Auto) (0-5) /lpf U Epithel Cells (Auto) (0-5) /lpf Urine Bacteria (Auto) (Negative) Urine Yeast Acetaminophen (10-30) ug/ml Hepatitis A IgM Ab Hep Bs Antigen (Neg) Hep B Core IgM Ab Hepatitis C Antibody (Neg) 08/08/19 08/08/19 08/08/19 Range/Units 17:29 17:29 17:28 WBC (4.8-10.8) K/uL RBC (4.2-5.4) M/uL Hgb (12.0-16.0) g/dL Hct (37-47) % MCV (80-100) fL MCH (25-34) pg MCHC (32-36) g/dL RDW Std Deviation (36.4-46.3) fL RDW Coeff of Demetrio (11.5-14.5) % Plt Count (130-400) K/uL MPV (7.4-10.4) fL Immature Gran % (Auto) % Neut % (Auto) % Lymph % (Auto) % Williams % (Auto) % Eos % (Auto) % Baso % (Auto) % Immature Gran # (Auto) (0.00-0.02) K/uL Neut # (Auto) (1.4-6.5) K/uL Lymph # (Auto) (1.2-3.4) K/uL Williams # (Auto) (0.11-0.59) K/uL Eos # (Auto) (0-0.5) K/uL Baso # (Auto) (0-0.2) K/uL PT (9.0-12.0) Seconds INR (0.9-1.1) APTT (21.0-31.0) Seconds PTT Ratio Sodium (136-145) mmol/L Potassium (3.5-5.1) mmol/L Chloride (98-107) mmol/L Carbon Dioxide (21-32) mmol/L Anion Gap (3-11) BUN (7-18) mg/dl Creatinine (0.6-1.2) mg/dl Est Cr Clr Drug Dosing ml/min Est GFR ( Amer) Est GFR (Non-Af Amer) BUN/Creatinine Ratio (10-20) Glucose (70-99) mg/dl Lactate (0.4-2.0) mmol/L Calcium (8.5-10.1) mg/dl Total Bilirubin (0.2-1) mg/dl AST (15-37) U/L ALT (12-78) U/L Alkaline Phosphatase (45-117) U/L Troponin I (0-0.045) ng/ml Total Protein (6.4-8.2) gm/dl Albumin (3.4-5.0) gm/dl Globulin (2.5-4.0) gm/dl Albumin/Globulin Ratio (0.9-2) Lipase (73-393) U/L TSH (0.300-4.500) uIu/ml Urine Color Urine Appearance (Clear) Urine pH (4.5-7.5) Ur Specific [place] (1.000-1.030) Urine Protein (Negative) Urine Glucose (UA) (Negative) Urine Ketones (Negative) Urine Blood (Negative) Urine Nitrite (Negative) Urine Bilirubin (Negative) Urine Urobilinogen (Negative) Ur Leukocyte Esterase (Negative) Urine WBC (Auto) (0-5) /hpf Urine RBC (Auto) (0-4) /hpf U Hyaline Cast (Auto) (0-5) /lpf U Epithel Cells (Auto) (0-5) /lpf Urine Bacteria (Auto) (Negative) Urine Yeast Acetaminophen 6 L (10-30) ug/ml Hepatitis A IgM Ab Pending Hep Bs Antigen Neg (Neg) Hep B Core IgM Ab Pending Hepatitis C Antibody Neg (Neg) 08/08/19 08/08/19 08/08/19 Range/Units 12:55 12:55 12:55 WBC (4.8-10.8) K/uL RBC (4.2-5.4) M/uL Hgb (12.0-16.0) g/dL Hct (37-47) % MCV (80-100) fL MCH (25-34) pg MCHC (32-36) g/dL RDW Std Deviation (36.4-46.3) fL RDW Coeff of Demetrio (11.5-14.5) % Plt Count (130-400) K/uL MPV (7.4-10.4) fL Immature Gran % (Auto) % Neut % (Auto) % Lymph % (Auto) % Williams % (Auto) % Eos % (Auto) % Baso % (Auto) % Immature Gran # (Auto) (0.00-0.02) K/uL Neut # (Auto) (1.4-6.5) K/uL Lymph # (Auto) (1.2-3.4) K/uL Williams # (Auto) (0.11-0.59) K/uL Eos # (Auto) (0-0.5) K/uL Baso # (Auto) (0-0.2) K/uL PT 26.3 H (9.0-12.0) Seconds INR 2.8 H (0.9-1.1) APTT 29.3 (21.0-31.0) Seconds PTT Ratio 1.1 Sodium 143 (136-145) mmol/L Potassium 4.1 (3.5-5.1) mmol/L Chloride 107 (98-107) mmol/L Carbon Dioxide 27 (21-32) mmol/L Anion Gap 9.0 (3-11) BUN 15 (7-18) mg/dl Creatinine 1.03 (0.6-1.2) mg/dl Est Cr Clr Drug Dosing 30.8 ml/min Est GFR ( Amer) 56.6 Est GFR (Non-Af Amer) 48.8 BUN/Creatinine Ratio 14.7 (10-20) Glucose 95 (70-99) mg/dl Lactate 2.7 H* (0.4-2.0) mmol/L Calcium 8.6 (8.5-10.1) mg/dl Total Bilirubin 1.1 H (0.2-1) mg/dl AST 1132 H (15-37) U/L ALT 758 H (12-78) U/L Alkaline Phosphatase 300 H (45-117) U/L Troponin I (0-0.045) ng/ml Total Protein 6.9 (6.4-8.2) gm/dl Albumin 2.9 L (3.4-5.0) gm/dl Globulin 4.0 (2.5-4.0) gm/dl Albumin/Globulin Ratio 0.7 L (0.9-2) Lipase (73-393) U/L TSH (0.300-4.500) uIu/ml Urine Color Urine Appearance (Clear) Urine pH (4.5-7.5) Ur Specific [place] (1.000-1.030) Urine Protein (Negative) Urine Glucose (UA) (Negative) Urine Ketones (Negative) Urine Blood (Negative) Urine Nitrite (Negative) Urine Bilirubin (Negative) Urine Urobilinogen (Negative) Ur Leukocyte Esterase (Negative) Urine WBC (Auto) (0-5) /hpf Urine RBC (Auto) (0-4) /hpf U Hyaline Cast (Auto) (0-5) /lpf U Epithel Cells (Auto) (0-5) /lpf Urine Bacteria (Auto) (Negative) Urine Yeast Acetaminophen (10-30) ug/ml Hepatitis A IgM Ab Hep Bs Antigen (Neg) Hep B Core IgM Ab Hepatitis C Antibody (Neg) 08/08/19 08/08/19 Range/Units 12:55 12:42 WBC 7.97 (4.8-10.8) K/uL RBC 4.04 L (4.2-5.4) M/uL Hgb 14.1 (12.0-16.0) g/dL Hct 41.7 (37-47) % MCV 103.2 H (80-100) fL MCH 34.9 H (25-34) pg MCHC 33.8 (32-36) g/dL RDW Std Deviation 50.9 H (36.4-46.3) fL RDW Coeff of Demetrio 13.4 (11.5-14.5) % Plt Count 211 (130-400) K/uL MPV 9.1 (7.4-10.4) fL Immature Gran % (Auto) 0.1 % Neut % (Auto) 72.8 % Lymph % (Auto) 14.6 % Williams % (Auto) 11.9 % Eos % (Auto) 0.5 % Baso % (Auto) 0.1 % Immature Gran # (Auto) 0.01 (0.00-0.02) K/uL Neut # (Auto) 5.80 (1.4-6.5) K/uL Lymph # (Auto) 1.16 L (1.2-3.4) K/uL Williams # (Auto) 0.95 H (0.11-0.59) K/uL Eos # (Auto) 0.04 (0-0.5) K/uL Baso # (Auto) 0.01 (0-0.2) K/uL PT (9.0-12.0) Seconds INR (0.9-1.1) APTT (21.0-31.0) Seconds PTT Ratio Sodium (136-145) mmol/L Potassium (3.5-5.1) mmol/L Chloride (98-107) mmol/L Carbon Dioxide (21-32) mmol/L Anion Gap (3-11) BUN (7-18) mg/dl Creatinine (0.6-1.2) mg/dl Est Cr Clr Drug Dosing ml/min Est GFR ( Amer) Est GFR (Non-Af Amer) BUN/Creatinine Ratio (10-20) Glucose (70-99) mg/dl Lactate (0.4-2.0) mmol/L Calcium (8.5-10.1) mg/dl Total Bilirubin (0.2-1) mg/dl AST (15-37) U/L ALT (12-78) U/L Alkaline Phosphatase (45-117) U/L Troponin I (0-0.045) ng/ml Total Protein (6.4-8.2) gm/dl Albumin (3.4-5.0) gm/dl Globulin (2.5-4.0) gm/dl Albumin/Globulin Ratio (0.9-2) Lipase (73-393) U/L TSH (0.300-4.500) uIu/ml Urine Color Dark Yellow Urine Appearance Turbid A (Clear) Urine pH 6.0 (4.5-7.5) Ur Specific [place] 1.014 (1.000-1.030) Urine Protein Trace H (Negative) Urine Glucose (UA) Negative (Negative) Urine Ketones Trace H (Negative) Urine Blood 3+ H (Negative) Urine Nitrite Positive A (Negative) Urine Bilirubin 1+ H (Negative) Urine Urobilinogen Negative (Negative) Ur Leukocyte Esterase 3+ H (Negative) Urine WBC (Auto) >30 H (0-5) /hpf Urine RBC (Auto) >30 H (0-4) /hpf U Hyaline Cast (Auto) 1-5 (0-5) /lpf U Epithel Cells (Auto) 10-20 H (0-5) /lpf Urine Bacteria (Auto) 4+ H (Negative) Urine Yeast Not Reportable Acetaminophen (10-30) ug/ml Hepatitis A IgM Ab Hep Bs Antigen (Neg) Hep B Core IgM Ab Hepatitis C Antibody (Neg) (1) AMS (altered mental status) Altered mental status type: unspecified Qualified Code(s): R41.82 - Altered mental status, unspecified
[2019-08-09] MEDS: ESCITALOPRAM OXALATE 20 MG TAB PO SCH (10:16)
[2019-08-09] MEDS: FERROUS SULFATE 325 MG TAB PO SCH ×2 (10:16→20:15)
[2019-08-09 12:06] LABS: INR 1.5 (0.9-1.1); Prothrombin Time 14.7 Seconds (9.0-12.0)
--- NOTE | 2019-08-09 12:13 | Urology Progress Note ---
Date of Service August 09, 2019 Assessment & Plan (1) UTI (urinary tract infection): (2) Hydronephrosis, left: 89yo F with UTI, stable left hydro, transaminitis w/ suspected choledocholithiasis, concern for acute cholecystitis Plan for ERCP + cholecystectomy tomorrow. Continue broad spectrum abx while awaiting final UC&S results. Recommend 7- 10days of abx per sensitivities. Will continue to monitor peripherally while inpatient. Please make us aware of sudden changes or other issues concerning for possible pyelonephritis. Thank you for the consultation. No urgent intervention required at this time. Subjective Pt sitting up in bed eating clears tray at time of evaluation today. No complaints from standpoint. No new flank pain. Denies dysuria or hematuria. Continues to void in commode, some incontinence episodes but this is not new for her. Typically wears depends at home. Review of Systems Review of Systems: All systems reviewed & are unremarkable except as noted in HPI & below Physical Exam Constitutional: no acute distress and not ill appearing Eyes: no nystagmus ENMT: Ears: no hearing impairment Neck: trachea midline Respiratory: no respiratory distress and no cough Cardiovascular: Vessels: no JVD Chest (Breasts): Chest: normal inspection of chest Gastrointestinal (Abdomen): Inspection/Auscultation: abdomen not distended and no abdominal edema Percussion/Palpation: abdomen soft; abdomen nontender Musculoskeletal: Head/Neck/Chest: normocephalic and head atraumatic Skin: no rashes, warm and dry Neurologic: awake; not confused and not obtunded Psychiatric: Orientation: alert and oriented x 3 Eye Contact: good eye contact Affect: no depressed affect Lymphatic: no lymphadenopathy and no lymphedema Results & Data Vital Signs (Past 12 Hours) Vital Signs Temp Pulse Resp BP Pulse Ox 08/09/19 06:26 36.4 C L 54 L 19 123/72 98 08/09/19 04:33 36.4 C L 55 L 18 130/74 96 PG Care Time/CCT Total # of Minutes Spent Total Time Spent with Patient: Total time spent is greater than 50% in coordination of care (as documented) at patient's floor/unit and/or counseling patient: (1) UTI (urinary tract infection) Hematuria presence: without hematuria Urinary tract infection type: site unspecified Qualified Code(s): N39.0 - Urinary tract infection, site not specified
[2019-08-09] MEDS: PANTOprazole 40 MG TAB PO SCH (12:15)
[2019-08-09 12:16] LABS: Albumin Level 2.4 gm/dl (3.4-5.0); BUN Creatinine Ratio 14.4 (10-20); Calcium 7.6 mg/dl (8.5-10.1); Creatinine Clr Calc Pharmacy 48.5 ml/min; Est GFR (African American) 92.1; Est GFR (Non-African American) 79.4; Potassium 3.6 mmol/L (3.5-5.1)
[2019-08-09 12:21] LABS: Albumin Globulin Ratio 0.7 (0.9-2); Globulin 3.3 gm/dl (2.5-4.0); Total Protein 5.7 gm/dl (6.4-8.2)
--- NOTE | 2019-08-09 14:48 | Surgery Consultation ---
Date of Consultation August 09, 2019 Assessment & Plan (1) Transaminitis: 89 year-old female with elevated LFTS, abdominal CT scan showing distended gallbladder with distal CBD filing defect, and US showing dilated CBD at 1 cm with mild pericholecystic fluid concerning for developing acute cholecystitis. No leukocytosis however hypotensive and elevated lactic acid on presentation (now resolved). Concern for choledocholithiasis with developing acute cholecystitis. No signs of cholangitis. Plan: Given patients age, discussed with GI service about combination case for ERCP and Cholecystectomy under same anesthesia. Will determine timing depending on surgeon/GI availability today. Keep patient NPO for now continue IV abx Continue to hold warfarin continue medical management. Dr. Ayala has seen and examined patient, agrees with above. Supervising Physician Co-Signing Physician Notes I interviewed and examined this patient I agree with the above note. This patient has elevated liver function tests along with what appears to be choledocholithiasis. We are planning for a combined ERCP followed by laparoscopic cholecystectomy. I explained the laparoscopic cholecystectomy to the patient. I explained the possible need to convert to an open procedure and we discussed some of the possible complications associated with the procedures. I answered her questions and she has signed a consent form. History of Present Illness Reason for Consultation: acute cholecystitis with choledocholithiasis Requesting Physician: Ricki Soliz MD Attending Physician: Ricki Soliz MD History of Present Illness 89 year old female with history of dementia, atrial fibrillation on warfarin, HTN, HLD, CAD, CKD-III, depression, history of DVT, history of nephrolithiasis who presented to [facility] ED for evaluation of right neck and arm pain x 1 day. She was found to have hypotension and elevated lactic acid at 2.7. She was started on broad spectrum antibiotics and CT scan of abdomen and pelvis showing distal common bile duct filling defect, likely a stone with distended gallbladder and pericholecystic edema concerning for acute cholecystitis. Also found to have UTI with chronic findings of left hydronephrosis (similar to prior in February). Abdominal ultrasound showing distended gallbladder with small stones and sludge and mild pericholecystic fluid concerning for developing acute cholecystitis. CBD measures 1 cm on ultrasound. elevated LFTS and t. bili - T. bili 1.1 --> 1.3 --> 1.4 - AST 1132 --> 718 --> 341 - ALT 758 --> 560 --> 366 - Alk 300 -->251 --> 179 - Lipase 45 INR elevated on admission 2.8 --> 1.8 --> 1.5 (today) Lactate 2.7 --> 2.8 --> 1.9 GI consulted and planning for ERCP however would like to plan accordingly with our service for combined ERCP/Cholecystectomy given patients age to allow for both procedures under one anesthetic. Mary Lou evaluated this morning, history mostly obtained by chart. She states she is feeling fine. Not having any abdominal pain unless pressed on. No nausea or vomiting. Allergies Allergy/AdvReac Type Severity Reaction Status Date / Time omeprazole Allergy Unknown distal Verified 02/24/19 11:13 edema-none with pantoprozole Home Medications Home Medications Medication Instructions Recorded Confirmed Type pantoprazole [Protonix] 40 mg PO QAM #0 12/27/15 08/08/19 History acetaminophen 650 mg PO Q4H PRN #0 01/08/17 08/08/19 History mirtazapine 15 mg PO HS #0 tab 01/08/17 08/08/19 History gabapentin 100 mg PO HS #0 03/10/18 08/08/19 History ferrous sulfate 325 mg PO BID 30 Days #60 tab 04/08/18 08/08/19 History alendronate 70 mg PO WK 02/24/19 08/08/19 History escitalopram oxalate 20 mg PO QAM 02/24/19 08/08/19 History metoprolol succinate 12.5 mg PO DAILY 08/08/19 08/08/19 History warfarin 1 mg PO 5XWK 08/08/19 08/08/19 History warfarin 2 mg PO 2XWK 08/08/19 08/08/19 History Patient History Medical History NSTEMI (non-ST elevated myocardial infarction) (Resolved) OAB (overactive bladder) (Chronic) History of DVT (deep vein thrombosis) (Chronic) HTN (hypertension) (Chronic) Atrial fibrillation (Chronic) Anticoagulated on Coumadin (Chronic) Osteoarthritis (Chronic) Sciatica (Chronic) Chronic pain (Chronic) Nephrolithiasis (Chronic) Depression (Chronic) Anxiety (Chronic) Hypothyroidism (Chronic) CAD (coronary artery disease) (Chronic) Atrial fibrillation GERD (gastroesophageal reflux disease) HLD (hyperlipidemia) HTN (hypertension) History of DVT (deep vein thrombosis) Migraines UTI (urinary tract infection) Surgical History History of lumbar surgery (Chronic) History of total hip arthroplasty (Chronic) LEFT History of total knee replacement (Chronic) RIGHT H/O lithotripsy (Chronic) 05/29/18. LMA #4. History of cataract surgery (Chronic) History of appendectomy (Chronic) H/O total hip arthroplasty (Chronic) Family History Mother , 70 Pancreatic cancer Father Coronary heart disease Social History Preferred Language: Faroese Communication Ability: Effective Cloth Pattern Maker Required: No Beliefs That Will Affect Care: None marital status: / Current Living Situation: Personal Care Facility Current Living Situation Comment: [facility] [place] Other Information That Helps Us Care for You: No Feels Safe at Home: Yes Safety Concerns: Feels Safe At This Time Smoking Status: Never smoker Hx Alcohol Use: No Hx Substance Use: No Review of Systems Review of Systems: All systems reviewed & are unremarkable except as noted in HPI & below Physical Exam Constitutional: WD/WN, vitals as above no acute distress Gastrointestinal (Abdomen): Inspection/Auscultation: abdomen normal to inspection; abdomen not distended Percussion/Palpation: + abdomen tender (RUQ) and abdomen soft; no guarding and abdomen not rigid Skin: no rashes, warm and dry Psychiatric: A+Ox3, euthymic affect Results & Data Vital Signs (Past 12 Hours) Vital Signs Temp Pulse Resp BP Pulse Ox 08/09/19 11:20 36.4 C L 62 18 139/77 95 08/09/19 06:26 36.4 C L 54 L 19 123/72 98 08/09/19 04:33 36.4 C L 55 L 18 130/74 96 Laboratory Results 08/09/19 08/09/19 08/09/19 Range/Units 11:14 11:14 05:59 WBC (4.8-10.8) K/uL RBC (4.2-5.4) M/uL Hgb (12.0-16.0) g/dL Hct (37-47) % MCV (80-100) fL MCH (25-34) pg MCHC (32-36) g/dL RDW Std Deviation (36.4-46.3) fL RDW Coeff of Demetrio (11.5-14.5) % Plt Count (130-400) K/uL MPV (7.4-10.4) fL Immature Gran % (Auto) % Neut % (Auto) % Lymph % (Auto) % [place] % (Auto) % Eos % (Auto) % Baso % (Auto) % Immature Gran # (Auto) (0.00-0.02) K/uL Neut # (Auto) (1.4-6.5) K/uL Lymph # (Auto) (1.2-3.4) K/uL [place] # (Auto) (0.11-0.59) K/uL Eos # (Auto) (0-0.5) K/uL Baso # (Auto) (0-0.2) K/uL PT 14.7 H (9.0-12.0) Seconds INR 1.5 H (0.9-1.1) Sodium 148 H 147 H (136-145) mmol/L Potassium 3.6 3.7 (3.5-5.1) mmol/L Chloride 116 H 116 H (98-107) mmol/L Carbon Dioxide 26 24 (21-32) mmol/L Anion Gap 6.0 7.0 (3-11) BUN 9 10 (7-18) mg/dl Creatinine 0.66 0.70 (0.6-1.2) mg/dl Est Cr Clr Drug Dosing 48.5 45.7 ml/min Est GFR ( Amer) 92.1 90.3 Est GFR (Non-Af Amer) 79.4 77.9 BUN/Creatinine Ratio 14.4 14.4 (10-20) Glucose 73 72 (70-99) mg/dl Lactate (0.4-2.0) mmol/L Calcium 7.6 L 7.4 L (8.5-10.1) mg/dl Total Bilirubin 1.0 1.4 H (0.2-1) mg/dl AST 287 H 341 H (15-37) U/L ALT 349 H 366 H (12-78) U/L Alkaline Phosphatase 178 H 179 H (45-117) U/L Troponin I (0-0.045) ng/ml Total Protein 5.7 L 5.3 L (6.4-8.2) gm/dl Albumin 2.4 L 2.2 L (3.4-5.0) gm/dl Globulin 3.3 3.1 (2.5-4.0) gm/dl Albumin/Globulin Ratio 0.7 L 0.7 L (0.9-2) Lipase (73-393) U/L TSH (0.300-4.500) uIu/ml Acetaminophen (10-30) ug/ml Hepatitis A IgM Ab Hep Bs Antigen (Neg) Hep B Core IgM Ab Hepatitis C Antibody (Neg) 08/09/19 08/09/19 08/08/19 Range/Units 05:59 05:59 19:29 WBC 4.03 L (4.8-10.8) K/uL RBC 3.48 L (4.2-5.4) M/uL Hgb 11.7 L (12.0-16.0) g/dL Hct 36.3 L (37-47) % MCV 104.3 H (80-100) fL MCH 33.6 (25-34) pg MCHC 32.2 (32-36) g/dL RDW Std Deviation 51.5 H (36.4-46.3) fL RDW Coeff of Demetrio 13.5 (11.5-14.5) % Plt Count 137 (130-400) K/uL MPV 9.4 (7.4-10.4) fL Immature Gran % (Auto) 0.2 % Neut % (Auto) 61.1 % Lymph % (Auto) 24.8 % [place] % (Auto) 8.7 % Eos % (Auto) 5.0 % Baso % (Auto) 0.2 % Immature Gran # (Auto) 0.01 (0.00-0.02) K/uL Neut # (Auto) 2.46 (1.4-6.5) K/uL Lymph # (Auto) 1.00 L (1.2-3.4) K/uL [place] # (Auto) 0.35 (0.11-0.59) K/uL Eos # (Auto) 0.20 (0-0.5) K/uL Baso # (Auto) 0.01 (0-0.2) K/uL PT 17.4 H (9.0-12.0) Seconds INR 1.8 H (0.9-1.1) Sodium (136-145) mmol/L Potassium (3.5-5.1) mmol/L Chloride (98-107) mmol/L Carbon Dioxide (21-32) mmol/L Anion Gap (3-11) BUN (7-18) mg/dl Creatinine (0.6-1.2) mg/dl Est Cr Clr Drug Dosing ml/min Est GFR ( Amer) Est GFR (Non-Af Amer) BUN/Creatinine Ratio (10-20) Glucose (70-99) mg/dl Lactate 1.9 (0.4-2.0) mmol/L Calcium (8.5-10.1) mg/dl Total Bilirubin (0.2-1) mg/dl AST (15-37) U/L ALT (12-78) U/L Alkaline Phosphatase (45-117) U/L Troponin I (0-0.045) ng/ml Total Protein (6.4-8.2) gm/dl Albumin (3.4-5.0) gm/dl Globulin (2.5-4.0) gm/dl Albumin/Globulin Ratio (0.9-2) Lipase (73-393) U/L TSH (0.300-4.500) uIu/ml Acetaminophen (10-30) ug/ml Hepatitis A IgM Ab Hep Bs Antigen (Neg) Hep B Core IgM Ab Hepatitis C Antibody (Neg) 08/08/19 08/08/19 08/08/19 Range/Units 17:29 17:29 17:29 WBC (4.8-10.8) K/uL RBC (4.2-5.4) M/uL Hgb (12.0-16.0) g/dL Hct (37-47) % MCV (80-100) fL MCH (25-34) pg MCHC (32-36) g/dL RDW Std Deviation (36.4-46.3) fL RDW Coeff of Demetrio (11.5-14.5) % Plt Count (130-400) K/uL MPV (7.4-10.4) fL Immature Gran % (Auto) % Neut % (Auto) % Lymph % (Auto) % [place] % (Auto) % Eos % (Auto) % Baso % (Auto) % Immature Gran # (Auto) (0.00-0.02) K/uL Neut # (Auto) (1.4-6.5) K/uL Lymph # (Auto) (1.2-3.4) K/uL [place] # (Auto) (0.11-0.59) K/uL Eos # (Auto) (0-0.5) K/uL Baso # (Auto) (0-0.2) K/uL PT (9.0-12.0) Seconds INR (0.9-1.1) Sodium 144 (136-145) mmol/L Potassium 3.6 (3.5-5.1) mmol/L Chloride 110 H (98-107) mmol/L Carbon Dioxide 24 (21-32) mmol/L Anion Gap 9.0 (3-11) BUN 13 (7-18) mg/dl Creatinine 0.81 (0.6-1.2) mg/dl Est Cr Clr Drug Dosing 39.2 ml/min Est GFR ( Amer) 75.7 Est GFR (Non-Af Amer) 65.3 BUN/Creatinine Ratio 15.8 (10-20) Glucose 81 (70-99) mg/dl Lactate 2.8 H* (0.4-2.0) mmol/L Calcium 7.8 L (8.5-10.1) mg/dl Total Bilirubin 1.3 H (0.2-1) mg/dl AST 718 H (15-37) U/L ALT 560 H (12-78) U/L Alkaline Phosphatase 251 H (45-117) U/L Troponin I < 0.015 (0-0.045) ng/ml Total Protein 6.0 L (6.4-8.2) gm/dl Albumin 2.6 L (3.4-5.0) gm/dl Globulin 3.4 (2.5-4.0) gm/dl Albumin/Globulin Ratio 0.8 L (0.9-2) Lipase 45 L (73-393) U/L TSH 2.020 (0.300-4.500) uIu/ml Acetaminophen (10-30) ug/ml Hepatitis A IgM Ab Hep Bs Antigen Neg (Neg) Hep B Core IgM Ab Hepatitis C Antibody Neg (Neg) 08/08/19 08/08/19 Range/Units 17:29 17:28 WBC (4.8-10.8) K/uL RBC (4.2-5.4) M/uL Hgb (12.0-16.0) g/dL Hct (37-47) % MCV (80-100) fL MCH (25-34) pg MCHC (32-36) g/dL RDW Std Deviation (36.4-46.3) fL RDW Coeff of Demetrio (11.5-14.5) % Plt Count (130-400) K/uL MPV (7.4-10.4) fL Immature Gran % (Auto) % Neut % (Auto) % Lymph % (Auto) % [place] % (Auto) % Eos % (Auto) % Baso % (Auto) % Immature Gran # (Auto) (0.00-0.02) K/uL Neut # (Auto) (1.4-6.5) K/uL Lymph # (Auto) (1.2-3.4) K/uL [place] # (Auto) (0.11-0.59) K/uL Eos # (Auto) (0-0.5) K/uL Baso # (Auto) (0-0.2) K/uL PT (9.0-12.0) Seconds INR (0.9-1.1) Sodium (136-145) mmol/L Potassium (3.5-5.1) mmol/L Chloride (98-107) mmol/L Carbon Dioxide (21-32) mmol/L Anion Gap (3-11) BUN (7-18) mg/dl Creatinine (0.6-1.2) mg/dl Est Cr Clr Drug Dosing ml/min Est GFR ( Amer) Est GFR (Non-Af Amer) BUN/Creatinine Ratio (10-20) Glucose (70-99) mg/dl Lactate (0.4-2.0) mmol/L Calcium (8.5-10.1) mg/dl Total Bilirubin (0.2-1) mg/dl AST (15-37) U/L ALT (12-78) U/L Alkaline Phosphatase (45-117) U/L Troponin I (0-0.045) ng/ml Total Protein (6.4-8.2) gm/dl Albumin (3.4-5.0) gm/dl Globulin (2.5-4.0) gm/dl Albumin/Globulin Ratio (0.9-2) Lipase (73-393) U/L TSH (0.300-4.500) uIu/ml Acetaminophen 6 L (10-30) ug/ml Hepatitis A IgM Ab Pending Hep Bs Antigen (Neg) Hep B Core IgM Ab Pending Hepatitis C Antibody (Neg) Diagnostic Findings ABDOMEN AND PELVIS CT WITH IV CONTRAST CT DOSE: 501.70 mGycm HISTORY: elevated LFT TECHNIQUE: Multiaxial CT images of the abdomen and pelvis were performed following the use of intravenous contrast. A dose lowering technique was utilized adhering to the principles of ALARA. COMPARISON STUDY: Abdomen and pelvis CT 02/24/2019. FINDINGS: The lung bases are clear. No pneumoperitoneum. No pneumatosis. There is a left hip prosthesis. Posterior fusion hardware seen within the lower lumbar spine. No hepatic or splenic masses. The adrenal glands and pancreas enhance normally. Stable 7 mm hypodense lesion within the right kidney. Multiple nonobstructing stones within the left kidney with the largest in the lower pole measuring 12 mm. Moderate left hydroureteronephrosis to the level of the distal ureter where there is urothelial thickening. This remains unchanged. There is also diffuse bladder wall thickening with a few small bladder diverticula. There are few punctate stones within the bladder lumen. No retroperitoneal lymphadenopathy. Distended gallbladder with pericholecystic fluid and a few punctate gallstones. There is also intra and extrahepatic bile duct dilatation with a slightly dense filling defect at the distal common bile duct best seen on image 168. This likely represents a distal common bile duct stone resulting in the bile duct dilatation and suspected developing acute cholecystitis. Of note, the bladder and distal ureters are not well visualized due to metallic artifact from the left hip prosthesis. No bowel wall thickening or obstruction. IMPRESSION: 1. A slightly dense filling defect within the distal common bile duct likely representing a common bile duct stone. This likely accounts for the bile duct dilatation and distended gallbladder. There is also pericholecystic fluid. Therefore, these findings likely represent developing acute cholecystitis. ERCP is recommended for further evaluation. 2. Redemonstration of the moderate left hydroureteronephrosis to the level of the distal ureter where the ureter tapers likely secondary to the urothelial thickening. This could be seen in the setting of a chronic infection or possibly neoplastic process. Of note, this area is not well visualized due to metallic artifact from the left hip prosthesis. Urology consultation recommended for further evaluation. 3. Persistent bladder wall thickening consistent with a nonspecific cystitis. 4. Left-sided nephrolithiasis and a few punctate calculi are noted. ABDOMINAL ULTRASOUND, RIGHT UPPER QUADRANT HISTORY: Right upper quadrant pain. Abnormal CT.. COMPARISON: Abdomen and pelvis CT 08/08/2019. FINDINGS: Pancreas: The pancreas demonstrates a normal echotexture. Liver: Moderate intrahepatic bile duct dilatation. No hepatic masses. The liver measures 16 cm in length. Gallbladder: Distended gallbladder with a small amount of pericholecystic fluid. Small stones and sludge identified within the gallbladder. CBD: 1 cm diameter. Right kidney: No hydronephrosis. IMPRESSION: 1. Distended gallbladder containing a few small stones and sludge. There is also a small amount of pericholecystic fluid. Findings could represent developing acute cholecystitis in the appropriate clinical setting. 2. Intra and extra hepatic bile duct dilatation.
--- NOTE | 2019-08-09 15:03 | Anesthesiology Consultation ---
Date of Service August 09, 2019 Assessment & Plan (1) Encounter for pre-operative examination: I spoke with the POA son Osmani Marcelino today at 1537 and he provided consent for GA for tomorrow's procedure. Witnessed by Kay Treadwell RN. Consent placed in chart. Chart Review Chart Review: Acceptable Risk for Surgery and Patient NOT seen in Pre Admission Testing Consults Requested none Proposed Anesthesia Risk / Benefits Reviewed With: PT / POA / Parent / Guardian, Accepts Plan and Informed Consent Obtained History Surgery Operation Date: 08/10/19 07:00 Proposed Procedures p Endoscopic Retrograde Cholangiopancreato - Christian Pierre MD and margy gonzales surgeon TBD Height/Weight Height: 5 ft Weight: 59.6 kg Allergies Allergy/AdvReac Type Severity Reaction Status Date / Time omeprazole Allergy Unknown distal Verified 02/24/19 11:13 edema-none with pantoprozole Medications Home Medications Medication Instructions Recorded Confirmed Last Taken pantoprazole [Protonix] 40 mg PO QAM #0 12/27/15 08/08/19 07/09/18 acetaminophen 650 mg PO Q4H PRN #0 01/08/17 08/08/19 Unknown mirtazapine 15 mg PO HS #0 tab 01/08/17 08/08/19 07/09/18 gabapentin 100 mg PO HS #0 03/10/18 08/08/19 07/09/18 ferrous sulfate 325 mg PO BID 30 Days #60 tab 04/08/18 08/08/19 07/09/18 alendronate 70 mg PO WK 02/24/19 08/08/19 Unknown escitalopram oxalate 20 mg PO QAM 02/24/19 08/08/19 Unknown metoprolol succinate 12.5 mg PO DAILY 08/08/19 08/08/19 Unknown warfarin 1 mg PO 5XWK 08/08/19 08/08/19 Unknown warfarin 2 mg PO 2XWK 08/08/19 08/08/19 Unknown Active Medications Generic Name Dose Route Start Last Admin Trade Name Freq PRN Reason Stop Dose Admin Escitalopram Oxalate 20 mg 08/09/19 09:00 08/09/19 10:16 Lexapro Tab PO 09/08/19 08:59 Not Given QAM YASHIRA Ferrous Sulfate 325 mg 08/08/19 21:00 08/09/19 10:16 Feosol PO 09/07/19 20:59 Not Given BID YASHIRA Gabapentin 100 mg 08/08/19 21:00 08/08/19 20:09 Neurontin PO 09/07/19 20:59 100 mg HS YASHIRA Administration Piperacillin Sod/Tazobactam 115 mls @ 28.75 mls/hr 08/08/19 18:00 08/09/19 14:26 Sod 3.375 gm/ Dextrose IV 08/10/19 17:59 Infused Q8H YASHIRA Infusion Protocol Dextrose/Sodium Chloride 1,000 mls @ 60 mls/hr 08/09/19 15:00 08/09/19 15:10 D5w And 1/2nss IV 09/08/19 14:59 60 mls/hr .[id number] YASHIRA Administration Mirtazapine 15 mg 08/08/19 21:00 08/08/19 20:09 Remeron PO 09/07/19 20:59 15 mg HS YASHIRA Administration Pantoprazole Sodium 40 mg 08/09/19 09:00 08/09/19 12:15 Protonix PO 09/08/19 08:59 40 mg QAM YASHIRA Administration Past Medical History Medical History NSTEMI (non-ST elevated myocardial infarction) (Resolved) OAB (overactive bladder) (Chronic) History of DVT (deep vein thrombosis) (Chronic) HTN (hypertension) (Chronic) Atrial fibrillation (Chronic) Anticoagulated on Coumadin (Chronic) Osteoarthritis (Chronic) Sciatica (Chronic) Chronic pain (Chronic) Nephrolithiasis (Chronic) Depression (Chronic) Anxiety (Chronic) Hypothyroidism (Chronic) CAD (coronary artery disease) (Chronic) Atrial fibrillation GERD (gastroesophageal reflux disease) HLD (hyperlipidemia) HTN (hypertension) History of DVT (deep vein thrombosis) Migraines UTI (urinary tract infection) Exercise / Class Metabolic Activity IV < 2 Limit ADL/Bedbound (uses wheelchair) Past Family History Family History Mother , 70 Pancreatic cancer Father Coronary heart disease Past Surgical History Surgical History History of lumbar surgery (Chronic) History of total hip arthroplasty (Chronic) LEFT History of total knee replacement (Chronic) RIGHT H/O lithotripsy (Chronic) 05/29/18. LMA #4. History of cataract surgery (Chronic) History of appendectomy (Chronic) H/O total hip arthroplasty (Chronic) Past Anesthesia History No Hx of Anesthesia Complications and No Family Hx of Anesthesia Complications History of PONV No Hx of PONV and No Hx of Motion Sickness Social History Smoking Status: Never smoker Hx Alcohol Use: No Hx Substance Use: No substance use type: does not use Physical Exam Vital Signs Last Vital Signs Temp 36.9 C 08/09/19 15:03 Pulse 61 08/09/19 15:03 Resp 16 08/09/19 15:03 BP 117/69 08/09/19 15:03 Pulse Ox 96 08/09/19 15:03 ENMT Mouth: + dentition abnormality (all teeth are capped, missing all upper back left and 1 upper back right) and + poor dentition (all teeth only in fair condition); no TMJ abnormality Thyromental Distance: > or= 3.5 Finger Breadths Mallampati Class: II Neck normal visual inspection and trachea midline; neck extension not limited Respiratory normal respiratory effort Auscultation: lungs clear to auscultation bilaterally Cardiovascular Rate/Rhythm: regular rate; + abnormal rhythm (irreg irreg) Heart Sounds: no murmur Musculoskeletal Spine: normal cervical ROM Extremities: full ROM of extremities Skin no lesions Neurologic moves all extremities Psychiatric Orientation: alert; + not oriented x 3 (x2 that I can assess. pleasant and cooperative, but hard of hearing) Testing Laboratory Results 08/09/19 05:59 08/09/19 11:14 PT 14.7 Seconds (9.0-12.0) H 08/09/19 11:14 INR 1.5 (0.9-1.1) H 08/09/19 11:14 APTT 29.3 Seconds (21.0-31.0) 08/08/19 12:55 Urine Color Dark Yellow 08/08/19 12:42 Urine Appearance Turbid (Clear) A 08/08/19 12:42 Urine pH 6.0 (4.5-7.5) 08/08/19 12:42 Ur Specific [place] 1.014 (1.000-1.030) 08/08/19 12:42 Urine Protein Trace (Negative) H 08/08/19 12:42 Urine Glucose (UA) Negative (Negative) 08/08/19 12:42 Urine Ketones Trace (Negative) H 08/08/19 12:42 Urine Nitrite Positive (Negative) A 08/08/19 12:42 Ur Leukocyte Esterase 3+ (Negative) H 08/08/19 12:42 Urine WBC (Auto) >30 /hpf (0-5) H 08/08/19 12:42 Urine RBC (Auto) >30 /hpf (0-4) H 08/08/19 12:42 U Hyaline Cast (Auto) 1-5 /lpf (0-5) 08/08/19 12:42 U Epithel Cells (Auto) 10-20 /lpf (0-5) H 08/08/19 12:42 Urine Bacteria (Auto) 4+ (Negative) H 08/08/19 12:42 08/08/19 13:36 Aerobic Blood Culture - Preliminary Blood No growth in Aerobic bottle after 24 hours. Anaerobic Blood Culture - Preliminary No growth in Anaerobic bottle after 24 hours. 08/08/19 12:55 Aerobic Blood Culture - Preliminary Blood No growth in Aerobic bottle after 24 hours. Anaerobic Blood Culture - Preliminary No growth in Anaerobic bottle after 24 hours. 08/08/19 12:42 Urine Culture - Preliminary Urine,Straight Cath Gram negative bacilli Electrocardiogram Date: 02/26/19 Findings: + NSR @ (72) Low voltage QRS Nonspecific ST abnormality, When compared with ECG of 25-FEB-2019 06:40, No significant change was found Chest X-Ray Date: 08/08/19 Findings: + NAD Other Testing Head CT 08/08/19 No significant change compared to the prior study. No acute intracranial abnormality.
[2019-08-09] MEDS: D5W AND 1/2NSS 1,000 ML IV SCH (15:10)
[2019-08-09] MEDS: GABAPENTIN 100 MG CAP PO SCH (20:15)
[2019-08-09] MEDS: MIRTAZAPINE TAB 15 MG TAB PO SCH (20:15)
[2019-08-10] MEDS: PIPERACILLIN/TAZOBACTAM 3.375 GM in DEXTROSE 5% 100 ML IV SCH (03:09)
[2019-08-10 06:33] LABS: Basophils # (auto) 0.01 K/uL (0-0.2); Basophils % (auto) 0.2 %; Eosinophils # (auto) 0.29 K/uL (0-0.5); Eosinophils % (auto) 6.8 %; Hematocrit (blood only) 34.3 % (37-47); Hemoglobin 11.5 g/dL (12.0-16.0); Immature Granulocytes # (auto) 0.01 K/uL (0.00-0.02); Immature Granulocytes % (auto) 0.2 %; Lymphocytes % (auto) 30.5 %; Mean Corpuscular Hemoglobin 34.1 pg (25-34); Mean Corpuscular Hgb Conc 33.5 g/dL (32-36); Mean Corpuscular Volume 101.8 fL (80-100); Mean Platelet Volume 9.2 fL (7.4-10.4); Monocytes # (auto) 0.43 K/uL (0.11-0.59); Monocytes % (auto) 10.1 %; Neutrophils # (auto) 2.22 K/uL (1.4-6.5); Neutrophils % (auto) 52.2 %; Platelet Count 164 K/uL (130-400); RDW Coefficient of Variation 13.3 % (11.5-14.5); RDW Standard Deviation 50.3 fL (36.4-46.3); Red Blood Count 3.37 M/uL (4.2-5.4); White Blood Count 4.26 K/uL (4.8-10.8)
[2019-08-10 06:44] LABS: INR 1.1 (0.9-1.1); Prothrombin Time 11.6 Seconds (9.0-12.0)
[2019-08-10] MEDS: D5W AND 1/2NSS 1,000 ML IV SCH (07:03)
[2019-08-10 07:09] LABS: Albumin Level 2.1 gm/dl (3.4-5.0); Calcium 7.7 mg/dl (8.5-10.1); Creatinine Clr Calc Pharmacy 43.2 ml/min; Est GFR (African American) 84.4; Est GFR (Non-African American) 72.8
[2019-08-10 07:11] LABS: Albumin Globulin Ratio 0.6 (0.9-2); Bilirubin,Total 0.8 mg/dl (0.2-1); Globulin 3.3 gm/dl (2.5-4.0); Total Protein 5.4 gm/dl (6.4-8.2)
--- NOTE | 2019-08-10 07:59 | Hospitalist Progress Note ---
Date of Service August 10, 2019 Assessment & Plan (1) Sepsis: This is a 88-year-old female who has significant past medical history of atrial fibrillation anticoagulated with warfarin, HTN, HLD, nonobstructive CAD, CKD stage III, depression, history of DVT, OAB, history of nephrolithiasis, who presents to [facility] from [facility] secondary to right neck and arm pain x 1 day. In ED patient initially hypotensive systolic blood pressure less than 100.Lactic acid elevated 2.7. Upon admission patient technically does not meet SIRS/sepsis criteria per CMS guidelines (only hypotension - no leukocytosis, tachycardia, elevated RR) However in setting of hypotension, elevated lactic acid, AMS, active UTI/likely choledocholithiasis and cholecystitis clinically patient appears septic -IV fluids, IV antibiotics as Zosyn have been given (started on 08/08/19). lactic acid has normalized on admission day -given negative blood cultures, and urine culture of pansensitive Klebsiella pneumoniae, and needing coverage for Cholecystitis, is to transition from Zosyn to ceftriaxone 2 gram daily on 08/10/19 (2) Transaminitis: Choledocholithiasis Acute Cholecystitis -admission AST 1132 and ALT 758 with elevated alkaline phosphatase -admission lipase normal -negative acetaminophen levels -hepatitis labs are negative for hepatitis C -admission imaging to have suspected CHOLEDOCHOLITHIASIS (slightly dense filling defect within the distal common bile duct likely representing a common bile duct stone) and distended gallbladder concerning with ACUTE CHOLECYSTITIS -Liver enzymes trended down with IV fluids -on IV antibiotics -Because patient was anticoagulated on coumadin as outpatient vitamin K was given on 08/08/19 and INR is reversed -ERCP and cholecystectomy are planned for 08/10/19 (3) UTI (urinary tract infection): -initially on IV Zosyn -given negative blood cultures, and urine culture of pansensitive Klebsiella pneumoniae, and needing coverage for Cholecystitis, is to transition from Zosyn to ceftriaxone 2 gram daily on 08/10/19 Hypernatremia -mild hypernatremia likley due to patient's previous normal saline IV fluids and also being on IV zosyn which has sodium content -continue start D5 1/2 normal saline to correct, discontinue Zosyn on 08/10/19 Hypokalemia -serum potassium is 3 on 08/10/19, give IV potassium (4) Hydronephrosis, left: -[facility] was consulted because of urinary tract infection and moderate left hydroureteronephrosis to the level of the distal ureter where the ureter tapers likely secondary to the urothelial thickening -[facility] u[facility] comments that Left hydronephrosis is similar to what was seen in February 2019 (5) Atrial fibrillation: history of PAROXYSMAL ATRIAL FIBRILLATION -is in sinus bradycardia -continue to hold metoprolol -Because patient was anticoagulated on coumadin as outpatient vitamin K was given on 08/08/19 and INR is reversed, may likely resume coumadin after ERCP and cholecystectomy are completed (6) CAD (coronary artery disease): History of nonobstructive CAD -no chest pain or respiratory symptoms -metoprolol held for now, can consider to resume depending on heart rate after ERCP and cholecystectomy are completed (7) HTN (hypertension): -Patient hypotensive on admission -blood pressure currently controlled and stable (8) Hypothyroidism: History of hypothyroidism, patient currently not taking levothyroxine -Appears to have been discontinued in the past secondary to pill burden -is euthyroid as TSH of 2 is normal (9) Depression: -can Continue escitalopram (10) History of DVT (deep vein thrombosis): -Patients history of DVT appears to be in the distant past (11) DVT prophylaxis: -SCD/TEDS for now Patients son Ed Ryland [phone] Patients daughter in law Mili [phone] Subjective Patient seen and examined at bedside. Notable lab changes today of serum potassium of 3. Patient to get IV potassium. Patient is to get ERCP and likely cholecystectomy. Patient is poor historian. when prompted, she recalls that her son Ed was at bedside yesterday. Have reinforced to patient that the Gastroenterology and general surgery service is coordinating for procedures today. patient is pleasant. cooperative on exam. she denies acute pain. denies shortness of breath or dizziness. she reports she has been able to make bowel movements since being in hospital. she has been able to urinate Physical Exam Constitutional: comfortable Eyes: PERRL, conjunctivae normal, anicteric sclerae EOM intact bilaterally ENMT: external ear and nose normal, oropharynx normal Neck: normal visual inspection Respiratory: normal respiratory effort, lungs clear to auscultation Cardiovascular: Rate/Rhythm: + bradycardic Gastrointestinal (Abdomen): normal bowel sounds, soft, nontender, no hepatosplenomegaly Musculoskeletal: Head/Neck/Chest: normocephalic and head atraumatic Neurologic: PERRL, EOMI, accommodation nl, no face palsy, no dysarthria CN's II-XI intact bilaterally Psychiatric: Orientation: alert and cooperative Results & Data Vital Signs (Past 12 Hours) Vital Signs Temp Pulse Resp BP Pulse Ox Pulse Ox 08/10/19 07:34 95 08/10/19 07:29 36.6 C 57 L 16 120/70 95 08/10/19 00:05 96 08/09/19 23:46 36.7 C 58 L 18 127/73 96 (1) UTI (urinary tract infection) Hematuria presence: without hematuria Urinary tract infection type: site unspecified Qualified Code(s): N39.0 - Urinary tract infection, site not specified (2) CAD (coronary artery disease) Associated angina: without angina Coronary Disease-Associated Artery/Lesion type: [place] artery [place] vs. transplanted heart: [place] heart Qualified Code(s): I25.10 - Atherosclerotic heart disease of [place] coronary artery without angina pectoris (3) Atrial fibrillation Atrial fibrillation type: paroxysmal Qualified Code(s): I48.0 - Paroxysmal atrial fibrillation (4) Depression Depression Type: unspecified Qualified Code(s): F32.9 - Major depressive disorder, single episode, unspecified (5) Hypothyroidism Hypothyroidism type: unspecified Qualified Code(s): E03.9 - Hypothyroidism, unspecified (6) Sepsis Sepsis type: sepsis due to unspecified organism Qualified Code(s): A41.9 - Sepsis, unspecified organism
[2019-08-10] MEDS: POTASSIUM CHLORIDE / WTR 10 MEQ/100 ML PLCT IV SCH ×2 (08:01→09:13)
[2019-08-10] MEDS: PANTOprazole 40 MG TAB PO SCH (08:02)
[2019-08-10] MEDS: FERROUS SULFATE 325 MG TAB PO SCH ×2 (08:02→21:07)
[2019-08-10] MEDS: ESCITALOPRAM OXALATE 20 MG TAB PO SCH (08:02)
--- NOTE | 2019-08-10 08:05 | Gastroenterology Progress Note ---
Date of Service August 10, 2019 Assessment & Plan (1) Transaminitis: 89 year old female with history of dementia, atrial fibrillation on warfarin w/ INR 1.8, HTN, HLD, CAD, CKD-III who presented from facility for right neck and arm pain - on arrival to the ED she was hypotensive w/ elevated lactic acid and was started on IV fluids and broad spectrum ABX w/ Zosyn. Labs w/ transaminitis, underwent CT imaging w/ concern for CBD stone, biliary dilation at 10 mm Transaminitis w/ suspected choledocholithiasis, concern for acute cholecystitis plan for ERCP + cholecystectomy today. INR is now in acceptable range, LFTs trending down - NPO - Correct electrolytes - Plan for ERCP - Trend LFTs - Trend INR - Agree w/ IV ABX Thank you for allowing us to participate in the care of this patient. Please call with any acute changes, questions or concerns. Please see addendum below with additional recommendation from my supervising physician. Present on Admission?: Yes Supervising Physician Co-Signing Physician Notes I have seen and examined the patient and discussed the management with KATHRINE Butts. 89 yo fm with a history of being admitted 2 days ago, imaging suggestive of cbd stone and dilated CBD with gallstones. PE - alert and oriented this morning, abd - soft nt nd +bs, Neuro: cn's 2-12 intact Labs reviewed- downtrending tbili K being corrected. Combined lap gonzales/ercp later today. Subjective Pt was seen and evaluated, chart reviewed. Awake, alert to person, place but not to time Denies any abdominal pain No nausea, vomiting Passing gas, moving bowels Has remained afebrile LFTs improving K low this AM INR: 2.8 --> 1.8 --> 1.1 TB: 1.1 --> 1.3 --> 1.4 --> 0.8 AST: 1132 --> 718 --> 341 --> 129 ALT: 758 --> 560 --> 366 --> 235 ALKP: 300 --> 251 --> 175 --> 153 ABD US: Distended gallbladder containing a few small stones and sludge. There is also a small amount of pericholecystic fluid. Findings could represent developing acute cholecystitis in the appropriate clinical setting.Intra and extra hepatic bile duct dilatation. CT ABD/Pelvis: A slightly dense filling defect within the distal common bile duct likely representing a common bile duct stone. This likely accounts for the bile duct dilatation and distended gallbladder. There is also pericholecystic fluid. Therefore, these findings likely represent developing acute cholecystitis. ERCP is recommended for further evaluation. Redemonstration of the moderate left hydroureteronephrosis to the level of the distal ureter where the ureter tapers likely secondary to the urothelial thickening. This could be seen in the setting of a chronic infection or possibly neoplastic process. Of note, this area is not well visualized due to metallic artifact from the left hip prosthesis. Urology consultation recommended for further evaluation.Persistent bladder wall thickening consistent with a nonspecific cystitis.Left-sided nephrolithiasis and a few punctate calculi are noted. Review of Systems Constitutional: no fever and no chills Respiratory: no cough and no dyspnea Cardiovascular: no chest pain Gastrointestinal: no abdominal pain, no nausea and no vomiting Physical Exam Constitutional: + ill appearing (chronically ill); no acute distress Respiratory: normal respiratory effort Cardiovascular: Rate/Rhythm: regular rate Gastrointestinal (Abdomen): Inspection/Auscultation: normal bowel sounds Percussion/Palpation: abdomen soft; abdomen nontender, no guarding and abdomen not rigid Skin: no rashes, warm and dry Results & Data Vital Signs (Past 12 Hours) Vital Signs Temp Pulse Resp BP Pulse Ox Pulse Ox 08/10/19 07:34 95 08/10/19 07:29 36.6 C 57 L 16 120/70 95 08/10/19 00:05 96 08/09/19 23:46 36.7 C 58 L 18 127/73 96 Laboratory Results 08/10/19 08/10/19 08/10/19 Range/Units 05:18 05:18 05:18 WBC 4.26 L (4.8-10.8) K/uL RBC 3.37 L (4.2-5.4) M/uL Hgb 11.5 L (12.0-16.0) g/dL Hct 34.3 L (37-47) % MCV 101.8 H (80-100) fL MCH 34.1 H (25-34) pg MCHC 33.5 (32-36) g/dL RDW Std Deviation 50.3 H (36.4-46.3) fL RDW Coeff of Demetrio 13.3 (11.5-14.5) % Plt Count 164 (130-400) K/uL MPV 9.2 (7.4-10.4) fL Immature Gran % (Auto) 0.2 % Neut % (Auto) 52.2 % Lymph % (Auto) 30.5 % Rogers % (Auto) 10.1 % Eos % (Auto) 6.8 % Baso % (Auto) 0.2 % Immature Gran # (Auto) 0.01 (0.00-0.02) K/uL Neut # (Auto) 2.22 (1.4-6.5) K/uL Lymph # (Auto) 1.30 (1.2-3.4) K/uL Rogers # (Auto) 0.43 (0.11-0.59) K/uL Eos # (Auto) 0.29 (0-0.5) K/uL Baso # (Auto) 0.01 (0-0.2) K/uL PT (9.0-12.0) Seconds INR (0.9-1.1) Sodium 146 H (136-145) mmol/L Potassium 3.0 L D (3.5-5.1) mmol/L Chloride 114 H (98-107) mmol/L Carbon Dioxide 25 (21-32) mmol/L Anion Gap 7.0 (3-11) BUN 6 L (7-18) mg/dl Creatinine 0.74 (0.6-1.2) mg/dl Est Cr Clr Drug Dosing 43.2 ml/min Est GFR ( Amer) 84.4 Est GFR (Non-Af Amer) 72.8 BUN/Creatinine Ratio 8.0 L (10-20) Glucose 103 H (70-99) mg/dl Calcium 7.7 L (8.5-10.1) mg/dl Magnesium Pending Total Bilirubin 0.8 (0.2-1) mg/dl AST 129 H (15-37) U/L ALT 235 H (12-78) U/L Alkaline Phosphatase 153 H (45-117) U/L Total Protein 5.4 L (6.4-8.2) gm/dl Albumin 2.1 L (3.4-5.0) gm/dl Globulin 3.3 (2.5-4.0) gm/dl Albumin/Globulin Ratio 0.6 L (0.9-2) Lipase 30 L (73-393) U/L 08/10/19 08/09/19 08/09/19 Range/Units 05:18 11:14 11:14 WBC (4.8-10.8) K/uL RBC (4.2-5.4) M/uL Hgb (12.0-16.0) g/dL Hct (37-47) % MCV (80-100) fL MCH (25-34) pg MCHC (32-36) g/dL RDW Std Deviation (36.4-46.3) fL RDW Coeff of Demetrio (11.5-14.5) % Plt Count (130-400) K/uL MPV (7.4-10.4) fL Immature Gran % (Auto) % Neut % (Auto) % Lymph % (Auto) % Rogers % (Auto) % Eos % (Auto) % Baso % (Auto) % Immature Gran # (Auto) (0.00-0.02) K/uL Neut # (Auto) (1.4-6.5) K/uL Lymph # (Auto) (1.2-3.4) K/uL Rogers # (Auto) (0.11-0.59) K/uL Eos # (Auto) (0-0.5) K/uL Baso # (Auto) (0-0.2) K/uL PT 11.6 14.7 H (9.0-12.0) Seconds INR 1.1 1.5 H (0.9-1.1) Sodium 148 H (136-145) mmol/L Potassium 3.6 (3.5-5.1) mmol/L Chloride 116 H (98-107) mmol/L Carbon Dioxide 26 (21-32) mmol/L Anion Gap 6.0 (3-11) BUN 9 (7-18) mg/dl Creatinine 0.66 (0.6-1.2) mg/dl Est Cr Clr Drug Dosing 48.5 ml/min Est GFR ( Amer) 92.1 Est GFR (Non-Af Amer) 79.4 BUN/Creatinine Ratio 14.4 (10-20) Glucose 73 (70-99) mg/dl Calcium 7.6 L (8.5-10.1) mg/dl Magnesium Total Bilirubin 1.0 (0.2-1) mg/dl AST 287 H (15-37) U/L ALT 349 H (12-78) U/L Alkaline Phosphatase 178 H (45-117) U/L Total Protein 5.7 L (6.4-8.2) gm/dl Albumin 2.4 L (3.4-5.0) gm/dl Globulin 3.3 (2.5-4.0) gm/dl Albumin/Globulin Ratio 0.7 L (0.9-2) Lipase (73-393) U/L
[2019-08-10] MEDS: cefTRIAXone SODIUM 2,000 MG in DEXTROSE 5% 50 ML IV SCH (08:53)
[2019-08-10] MEDS ORDERED: INDOMETHACIN 50 MG SUPP PR SCH (11:15)
[2019-08-10] MEDS ORDERED: fentaNYL citrate 100 MCG/2 ML VIAL ONE ×2 (11:17→13:51)
[2019-08-10] MEDS ORDERED: MIDAZOLAM HCL 1 MG/ML 2ML VIAL ONE (11:18)
[2019-08-10] MEDS ORDERED: PROPOFOL IV EMULSION 10 MG/ML 20 ML VIAL IV ONE (11:21)
[2019-08-10] MEDS ORDERED: LIDOCAINE HCL 2% 2 ML VIAL/AMP(20MG/ML) INFIL ONE (11:21)
[2019-08-10] MEDS ORDERED: ROCURONIUM BROMIDE 10 MG/ML 5 ML VIAL ONE (11:21)
[2019-08-10] MEDS ORDERED: ONDANSETRON INJ 2 MG/ML 2 ML VIAL ONE (11:21)
--- NOTE | 2019-08-10 12:02 | History & Physical Report ---
Date of Service August 10, 2019 Assessment & Plan (1) Cholecystitis: ERCP prior to laparoscopic cholecystectomy Present on Admission?: Yes History of Present Illness Chief Complaint: Cholecystitis with possible choledocholithiasis Primary Care Provider: CHRISTINE RICHARDS Patient with abnormal LFT's, cholecystitis. Allergies Allergy/AdvReac Type Severity Reaction Status Date / Time omeprazole Allergy Unknown distal Verified 02/24/19 11:13 edema-none with pantoprozole Home Medications Home Medications Medication Instructions Recorded Confirmed Type pantoprazole [Protonix] 40 mg PO QAM #0 12/27/15 08/08/19 History acetaminophen 650 mg PO Q4H PRN #0 01/08/17 08/08/19 History mirtazapine 15 mg PO HS #0 tab 01/08/17 08/08/19 History gabapentin 100 mg PO HS #0 03/10/18 08/08/19 History ferrous sulfate 325 mg PO BID 30 Days #60 tab 04/08/18 08/08/19 History alendronate 70 mg PO WK 02/24/19 08/08/19 History escitalopram oxalate 20 mg PO QAM 02/24/19 08/08/19 History metoprolol succinate 12.5 mg PO DAILY 08/08/19 08/08/19 History warfarin 1 mg PO 5XWK 08/08/19 08/08/19 History warfarin 2 mg PO 2XWK 08/08/19 08/08/19 History Past Med/Surg History Medical History NSTEMI (non-ST elevated myocardial infarction) (Resolved) OAB (overactive bladder) (Chronic) History of DVT (deep vein thrombosis) (Chronic) HTN (hypertension) (Chronic) Atrial fibrillation (Chronic) Anticoagulated on Coumadin (Chronic) Osteoarthritis (Chronic) Sciatica (Chronic) Chronic pain (Chronic) Nephrolithiasis (Chronic) Depression (Chronic) Anxiety (Chronic) Hypothyroidism (Chronic) CAD (coronary artery disease) (Chronic) Atrial fibrillation GERD (gastroesophageal reflux disease) HLD (hyperlipidemia) HTN (hypertension) History of DVT (deep vein thrombosis) Migraines UTI (urinary tract infection) Surgical History History of lumbar surgery (Chronic) History of total hip arthroplasty (Chronic) LEFT History of total knee replacement (Chronic) RIGHT H/O lithotripsy (Chronic) 05/29/18. LMA #4. History of cataract surgery (Chronic) History of appendectomy (Chronic) H/O total hip arthroplasty (Chronic) Family History Mother , 70 Pancreatic cancer Father Coronary heart disease Social History Preferred Language: Turkish Communication Ability: Effective Transit Vehicle Inspector Required: No Beliefs That Will Affect Care: None marital status: / Current Living Situation: Personal Care [facility] Other Information That Helps Us Care for You: No Feels Safe at Home: Yes Safety Concerns: Feels Safe At This Time Smoking Status: Never smoker Hx Alcohol Use: No Hx Substance Use: No Physical Exam Constitutional: well developed and well nourished with dementia Respiratory: normal respiratory effort, lungs clear to auscultation Cardiovascular: RRR, no murmur, no edema Gastrointestinal (Abdomen): normal bowel sounds, soft, nontender, no hepatosplenomegaly Results & Data Vital Signs (Past 12 Hours) Vital Signs Temp Pulse Resp BP Pulse Ox Pulse Ox 08/10/19 11:24 36.3 C L 56 L 16 120/70 94 08/10/19 07:34 95 08/10/19 07:29 36.6 C 57 L 16 120/70 95 08/10/19 00:05 96 Code Status & VTE Plan VTE Prophylaxis Plan VTE Prophylaxis will be ordered: Yes
[2019-08-10 12:13] LABS: BUN Creatinine Ratio 8.3 (10-20); Calcium 8.2 mg/dl (8.5-10.1); Creatinine Clr Calc Pharmacy 51.6 ml/min; Est GFR (Non-African American) 81.1
--- NOTE | 2019-08-10 12:41 | History & Physical Bridge Note ---
Date of Service August 10, 2019 History & Physical Bridge Note I have examined the patient, reviewed the History & Physical and in the interval since the performance of the History & Physical I have noted the following changes of clinical significance: no changes noted
[2019-08-10] MEDS ORDERED: CEFAZOLIN 250 MG/ML 1 GM VIAL ONE (12:47)
[2019-08-10] MEDS ORDERED: HEPARIN (PORCINE) 1000 UNIT/ML 10 ML (CATH LAB USE ONLY) ONE (12:47)
[2019-08-10] MEDS ORDERED: BUPIVACAINE 0.5 % 5 MG/1 ML MPF 30ML VIAL ONE (12:47)
[2019-08-10] MEDS ORDERED: CONRAY 60% 50 ML VIAL ONE (12:47)
--- NOTE | 2019-08-10 13:41 | Operative Report ---
Post Operative Report Pre & Post Diagnosis Operation Date: 08/10/19 07:00 Pre-Op Diagnosis: Elevated LFT, Cholecystitis Post-Op Diagnosis: Choledocholithiasis Procedure Operation Date: 08/10/19 07:00 Actual Procedures p Endoscopic Retrograde Cholangiopancreatography, Dilation, Extraction of Stone(Not Applicable) - Christian Pierre MD s Laparoscopic Cholecystectomy(Not Applicable) - Ross Ayala MD Surgeon Christian Pierre MD Retail Maintenance Technician None Estimated Blood Loss 0 (0 for ERCP) Findings Consistent with Post-Op Diagnosis Specimens None Description of Procedure see Provation report I attest to the content of the Intraoperative Record and any orders documented therein. Any exceptions are noted below.
[2019-08-10] MEDS ORDERED: HEPARIN SOD (PORCINE) 5,000 UNITS/ML VIAL ONE (13:49)
--- NOTE | 2019-08-10 13:51 | GI REPORT ---
Patient Name: Mary Lou Marcelino Procedure Date: 08/10/2019 12:28 PM Date of : 1930 Admit Type: Inpatient Age: 89 Gender: Female Attending MD: Christian Pierre MD Procedure: ERCP Providers: Christian Pierre MD Referring MD: Ricki Soliz M.d. Indications: Biliary dilation on Computed Tomogram Scan, Bile duct stone on Computed Tomogram Scan, Elevated liver enzymes Medicines: General Anesthesia, Indomethacin 100 mg W[place] Complications: No immediate complications. Estimated blood loss: None Estimated Blood Loss: Estimated blood loss: none. Procedure: Pre-Anesthesia Assessment: - Prior to the procedure, a History and Physical was performed, and patient medications, allergies and sensitivities were reviewed. The patient's tolerance of previous anesthesia was reviewed. - ASA Grade Assessment: III - A patient with severe systemic disease. After obtaining informed consent, the scope was passed under direct vision. Throughout the procedure, the patient's blood pressure, pulse, and oxygen saturations were monitored continuously. The Scope was introduced through the mouth, and advanced to the duodenum and used to inject contrast into the bile duct. The ERCP was accomplished with ease. The patient tolerated the procedure well. Findings: The assessment coordinator film was normal. The esophagus was successfully intubated under direct vision. The scope was advanced to a normal major papilla in the descending duodenum without detailed examination of the pharynx, larynx and associated structures, and upper GI tract. The upper GI tract was grossly normal. A [employer] 0.035 inch guidewire was passed into the biliary tree through a [employer] Omni FS 35 sphincterotome. The sphincterotome was passed over the guidewire and the bile duct was then deeply cannulated. Contrast was injected. The main bile duct was diffusely dilated. The largest diameter was 10 mm. The lower third of the main duct contained one stone, which was 8 mm in diameter. A 5 mm biliary sphincterotomy was made with a monofilament traction (standard) sphincterotome using ERBE electrocautery. There was no post-sphincterotomy bleeding. Dilation of the sphincterotomy and the distal common bile duct with an 8 mm balloon dilator was performed. The biliary tree was swept with a 10 mm balloon starting at the bifurcation. A large stone was removed. No residual stones were present. The duct was flushed with saline. Impression: - The entire main bile duct was dilated. - Choledocholithiasis was found. Complete removal was accomplished by biliary sphincterotomy, dilation of the distal common bile duct, and balloon extraction. Recommendation: - Laparoscopic cholecystectomy to follow immediately. Christian Pierre M.D. Christian Pierre MD 08/10/2019 1:51:23 PM This report has been signed electronically. Note Initiated On: 08/10/2019 12:28 PM Number of Addenda: 0 I attest to the content of the Intraoperative Record and orders documented therein, exceptions below {[id number]}
--- NOTE | 2019-08-10 14:01 | Fluoroscopy Report ---
FL ERCP biliary ductal CLINICAL HISTORY: EXPLORE DUCTS COMPARISON STUDY: Abdomen and pelvis CT 08/08/2019. FLUOROSCOPY TIME: 2 minutes and 14 seconds. 6 fluoroscopic spot images of the right upper quadrant we re submitted.. FINDINGS: There is an endoscope at the second portion of the duodenum. The ampulla was cannulated and contrast was injected into the distended common bile duct. There is evidence for a common bile duct stone. The common bile duct is dilated. A balloon sweep was performed. However, the final image demon strates the stone remaining within the distal common bile duct. IMPRESSION: Distal common bile duct stone is seen throughout the examination. Electronically signed by: Carlos Ferguson M.D. 08/10/2019 2:00 PM
[2019-08-10] MEDS ORDERED: ePHEDrine sulfate 50 MG/ML AMP ONE (14:09)
[2019-08-10] MEDS ORDERED: SODIUM CHLORIDE 0.9% INJ 10 ML VIAL ONE (14:09)
[2019-08-10] MEDS ORDERED: fentaNYL citrate 100 MCG/2 ML VIAL IV PRN (14:31)
[2019-08-10] MEDS ORDERED: ePHEDrine sulfate 50 MG/ML AMP IV PRN (14:31)
[2019-08-10] MEDS ORDERED: ATROPINE SULFATE 0.1 MG/ML 10ML SYR IV PRN (14:31)
[2019-08-10] MEDS ORDERED: ONDANSETRON INJ 2 MG/ML 2 ML VIAL IV PRN (14:31)
[2019-08-10 14:55] LABS: Hepatitis A Antibody IgM NON-REACTIVE (NON-REACTIVE); Hepatitis B Core Antibody IgM NON-REACTIVE (NON-REACTIVE)
[2019-08-10] MEDS ORDERED: NEOSTIGMINE METHYLSULFATE 5 MG/5 ML SYR ONE (14:57)
[2019-08-10] MEDS ORDERED: GLYCOPYRROLATE 0.2 MG/ML VIAL ONE (14:57)
--- NOTE | 2019-08-10 15:14 | Post Operative Brief Note ---
Immediate Post Op Note v1 Date of Surgery August 10, 2019 Pre & Post Diagnosis Operation Date: 08/10/19 07:00 Pre-Op Diagnosis: Elevated LFT, Cholecystitis Post-Op Diagnosis: Elevated LFT, Cholecystitis Procedure Operation Date: 08/10/19 07:00 Actual Procedures p Endoscopic Retrograde Cholangiopancreatography, Dilation, Extraction of Stone(Not Applicable) - MD iron Alfredo Laparoscopic Cholecystectomy(Not Applicable) - Ross Ayala MD Surgeon Ross Ayala MD Licensed Nuclear Control Room Operator None Estimated Blood Loss 10 (0 in ercp/ 10 in lap gonzales) Findings Consistent with Post-Op Diagnosis Specimens Gallbladder and contnents Drains Joaquin-Zaragoza Drain (in subhepatic space) Anesthesia Type General Complications none
--- NOTE | 2019-08-10 16:03 | Operative Report ---
DATE OF OPERATION: 08/10/2019 PREOPERATIVE DIAGNOSES: Cholelithiasis, history of choledocholithiasis. POSTOPERATIVE DIAGNOSES: Cholelithiasis, history of choledocholithiasis. PROCEDURE: Laparoscopic cholecystectomy. SURGEON: Ross Ayala MD. COST ACCOUNTING ANALYST: Beverly Vegas PA-C. FINDINGS: The gallbladder was mildly dilated. The cystic duct was mild to moderately dilated as well. There was a stone in the neck of the gallbladder. The liver was of normal size and contour. The visible bowel appeared normal. TECHNIQUE: The patient was given a general anesthetic and the area was prepped and draped in the usual sterile fashion. Transverse incision was made below the umbilicus, carried down through the subcutaneous tissue to the fascia which was grasped with 2 Moni clamps and incised between. The peritoneum was identified, incised, and the introducer was placed bluntly. The abdomen was then insufflated to a pressure of 15 mmHg with carbon dioxide. The upper midline, midclavicular and anterior axillary introducers were placed under direct vision through small skin incisions. The patient was placed in reverse Trendelenburg airplane left position. There were adhesions of the omentum to the gallbladder. The gallbladder was elevated. These adhesions were taken down using blunt and cautery dissection where appropriate. There was no duodenal adhesion. Once I got down to the infundibulum, I was able to open the peritoneum overlying it. I then dissected the gallbladder away from the liver on the lateral side and then entered the triangle of Calot and performed a similar dissection. There was a small vessel extending up along the peritoneal fold on the medial side of the gallbladder that was clamped. Further dissection was carried out anteriorly over the infundibulum and peeled towards the common bile duct. Further connective tissue was divided, freeing the infundibulum allowing me then to identify the cystic duct. The cystic artery was adherent to the posterior medial wall of the cystic duct. I was able to establish a plane between those structures. I then dissected further along the body of the gallbladder away from the liver, I then worked from lateral to medial the gallbladder off the liver. That allowed me better mobility of the infundibulum and I was able to then track laterally and divide attachments working up to the medial side of the gallbladder as well. That allowed me to confidently confirm the position of the gallbladder-cystic duct junction. Clips were placed on the proximal cystic duct and one near the gallbladder and it was divided. The instruments were created a hole in the gallbladder and I removed most of the bile using suction but there was some leakage. That allowed me then to identify the cystic artery. I was able to clip it twice proximally and once near the gallbladder and divided. There was a posterior branch that was also clipped and divided. Gallbladder dissection away from the liver was then completed using cautery. The gallbladder was placed into an Endobag and brought out through the upper midline incision. An introducer was replaced. The liver edge was elevated. There was a small amount of oozing from the vessel along the peritoneal rent along the medial aspect of the gallbladder. This was clipped. There was a small amount of bleeding from one of the adhesion areas that was easily cauterized and controlled. Subdiaphragmatic and subhepatic spaces were irrigated and irrigation was removed. Due to the dilation of the cystic duct, a drain was then passed and brought out through the anterior axillary introducer site. This was a 10 mm Joaquin-Zaragoza placed in the subhepatic space and secured at the skin with 3-0 nylon. The gas was allowed to escape and introducers were removed. Fascia of the umbilical and upper midline introducer sites was closed with interrupted 0 Vicryl and skin of all incisions was closed with 4-0 Monocryl in either an interrupted or running subcuticular fashion. Skin was anesthetized with 0.5% Marcaine. The skin was cleansed, dried, benzoin placed, Steri-Strips applied. Estimated blood loss was 10 mL. Sponge, needle and instrument counts were correct prior to closure. The patient tolerated the surgical procedure without complication and was transferred to recovery. I attest to the content of the Intraoperative Record and any orders documented therein. Any exception s are noted below.
--- NOTE | 2019-08-10 17:06 | Anesthesiology Progress Note ---
Date of Service August 10, 2019 Anesthesia Post Procedure Vital Signs Vital Signs: Temp Pulse Pulse Resp BP Pulse Ox Pulse Ox 08/10/19 16:48 93 08/10/19 16:31 56 L 14 153/72 H 93 08/10/19 16:10 36.8 C 575 H 16 150/68 H 94 08/10/19 16:00 57 L 17 162/74 H 94 08/10/19 15:50 54 L 14 150/69 H 100 08/10/19 15:40 56 L 12 147/68 H 100 08/10/19 15:33 36 C L 59 L 14 149/75 H 99 08/10/19 12:17 37.1 C 61 20 142/71 H 98 08/10/19 11:24 36.3 C L 56 L 16 120/70 94 08/10/19 07:34 95 08/10/19 07:29 36.6 C 57 L 16 120/70 95 08/10/19 00:05 96 08/09/19 23:46 36.7 C 58 L 18 127/73 96 Pain Intensity Right Lower Abdomen: Pain Intensity: 0 Right Abdomen: Pain Intensity: 2 Transfer of Care Handoff Completed per policy Notes Mental Status: alert / awake / arousable and participated in evaluation Patient Amnestic to Procedure: Yes Nausea / Vomiting: adequately controlled Pain: adequately controlled Airway Patency, RR, SpO2: stable & adequate BP & HR: stable & adequate Hydration State: stable & adequate Anesthetic Complications: no major complications apparent
[2019-08-10] MEDS: MoRPHine SULFATE 2 MG/ML CARP IV PRN ×3 (18:21→23:51)
[2019-08-10] MEDS: MIRTAZAPINE TAB 15 MG TAB PO SCH (21:07)
[2019-08-10] MEDS: GABAPENTIN 100 MG CAP PO SCH (21:07)
[2019-08-11] MEDS: D5W AND 1/2NSS 1,000 ML IV SCH ×2 (05:51→11:12)
[2019-08-11 07:14] LABS: INR 1.1 (0.9-1.1); Prothrombin Time 10.9 Seconds (9.0-12.0)
--- NOTE | 2019-08-11 08:16 | Urology Progress Note ---
Date of Service August 11, 2019 Assessment & Plan (1) Hydronephrosis, left: 89yo F POD #1 p ERCP, Dilation, Extraction of Stone, and Lap Ginger, with UTI, stable left hydronephrosis. Final UC&S growing >100,000 cfu Klebsiella. Recommend 7-10days of abx per sensitivities. Please make us aware of sudden changes or other issues concerning for possible pyelonephritis. Otherwise patient appears to be stable from perspective. Thank you for allowing us to participate in the acute care of Ms. Marcelino. Please reconsult us with additional questions, concerns or changes in patient status. Subjective 89yo F POD #1 p ERCP, Dilation, Extraction of Stone, and Lap Ginger, with UTI, stable left hydronephrosis. Pt sleeping this AM, easily arousable upon verbal stimulation. She is acknowledging abdominal pain post procedure. No urinary difficulty, no LUTS. VS Stable, afebrile. CR wnl Review of Systems Review of Systems: All systems reviewed & are unremarkable except as noted in HPI & below Physical Exam Constitutional: + thin and + frail appearing; no acute distress and not ill appearing Eyes: no nystagmus ENMT: Ears: no hearing impairment Neck: trachea midline Respiratory: no respiratory distress and no cough Cardiovascular: Vessels: no JVD Chest (Breasts): Chest: normal inspection of chest Gastrointestinal (Abdomen): drain attached, not assessed Musculoskeletal: Head/Neck/Chest: normocephalic and head atraumatic Skin: no rashes, warm and dry Neurologic: awake; not confused and not obtunded Psychiatric: Orientation: alert and oriented x 3 Eye Contact: good eye contact Affect: no depressed affect Lymphatic: no lymphadenopathy and no lymphedema Results & Data Vital Signs (Past 12 Hours) Vital Signs Temp Pulse Resp BP Pulse Ox 08/11/19 07:08 36.7 C 75 16 119/66 94 08/11/19 02:30 36.7 C 77 16 109/68 94 08/10/19 23:17 36.6 C 79 16 105/66 93 PG Care Time/CCT Total # of Minutes Spent Total Time Spent with Patient: Total time spent is greater than 50% in coordination of care (as documented) at patient's floor/unit and/or counseling patient:
[2019-08-11 08:29] LABS: Albumin Level 2.3 gm/dl (3.4-5.0); Bilirubin Direct 0.2 mg/dl (0-0.2); Bilirubin,Total 0.5 mg/dl (0.2-1); Total Protein 5.6 gm/dl (6.4-8.2)
[2019-08-11] MEDS: cefTRIAXone SODIUM 2,000 MG in DEXTROSE 5% 50 ML IV SCH (08:36)
[2019-08-11] MEDS: PANTOprazole 40 MG TAB PO SCH (08:37)
[2019-08-11] MEDS: ESCITALOPRAM OXALATE 20 MG TAB PO SCH (08:37)
[2019-08-11] MEDS: FERROUS SULFATE 325 MG TAB PO SCH ×2 (08:37→20:20)
[2019-08-11] MEDS: ACETAMINOPHEN 325 MG TAB PO PRN ×2 (08:41→23:20)
--- NOTE | 2019-08-11 09:05 | Gastroenterology Progress Note ---
Date of Service August 11, 2019 Assessment & Plan (1) Transaminitis: 89 year old female with history of dementia, atrial fibrillation on warfarin w/ INR 1.8, HTN, HLD, CAD, CKD-III who presented from facility for right neck and arm pain - on arrival to the ED she was hypotensive w/ elevated lactic acid and was started on IV fluids and broad spectrum ABX w/ Zosyn. Labs w/ transaminitis, underwent CT imaging w/ concern for CBD stone, biliary dilation at 10 mm Transaminitis w/ suspected choledocholithiasis, concern for acute cholecystitis plan for ERCP + cholecystectomy today. INR is now in acceptable range, LFTs trending down She is s/p ERCP w/ sphincterotomy for stone removal and lap cholecystectomy. Her LFTs continue to improve, she does note some mild upper abdominal pain today but deneis any nausea/vomiting. She is tolerating a regular diet and has completed nearly 90% of tray - Diet as tolerated - Trend LFTs - Antiemetics PRN - Analgesia PRN - If discomfort persist can consider KUB, additional labs to include LFTs, lipase Will watch peripherally. Please recall if needed. Thank you for allowing us to participate in the care of this patient. Please call with any acute changes, questions or concerns. Please see addendum below with additional recommendation from my supervising physician. Present on Admission?: Yes Supervising Physician Co-Signing Physician Notes I have seen and examined the patient and discussed the management with KATHRINE Butts. She is complaining of mild abdominal pain. No other acute complaints. PE - alert, no complaints, HEENT- no scleral icterus noted, Abd - soft nt nd +bs Labs reviewed - lipase pending Agree with further assessment and plan as above. Subjective Pt was seen and evaluated, chart reviewed POD #1 p ERCP w/ sphincterotomy for stone removal and lapchole She is upright in bed eating breakfast She does have some generalized abd pain this AM No nausea, vomiting VS Stable, afebrile. LFTs improving Review of Systems Constitutional: no fever and no chills Respiratory: no cough and no dyspnea Cardiovascular: no chest pain Gastrointestinal: + abdominal pain Physical Exam Constitutional: + ill appearing (chronic); no acute distress Respiratory: normal respiratory effort; no respiratory distress Cardiovascular: Rate/Rhythm: regular rate and regular rhythm Gastrointestinal (Abdomen): Percussion/Palpation: + abdomen tender (mild right sided) and abdomen soft; no guarding and abdomen not rigid Skin: no rashes, warm and dry Results & Data Vital Signs (Past 12 Hours) Vital Signs Temp Pulse Resp BP Pulse Ox 08/11/19 07:08 36.7 C 75 16 119/66 94 08/11/19 02:30 36.7 C 77 16 109/68 94 08/10/19 23:17 36.6 C 79 16 105/66 93 Laboratory Results 08/11/19 08/11/19 08/10/19 Range/Units 06:43 06:38 19:06 PT 10.9 (9.0-12.0) Seconds INR 1.1 (0.9-1.1) Sodium (136-145) mmol/L Potassium 3.3 L (3.5-5.1) mmol/L Chloride (98-107) mmol/L Carbon Dioxide (21-32) mmol/L Anion Gap (3-11) BUN (7-18) mg/dl Creatinine (0.6-1.2) mg/dl Est Cr Clr Drug Dosing ml/min Est GFR ( Amer) Est GFR (Non-Af Amer) BUN/Creatinine Ratio (10-20) Glucose (70-99) mg/dl Calcium (8.5-10.1) mg/dl Total Bilirubin 0.5 (0.2-1) mg/dl Direct Bilirubin 0.2 (0-0.2) mg/dl AST 67 H (15-37) U/L ALT 173 H (12-78) U/L Alkaline Phosphatase 146 H (45-117) U/L Total Protein 5.6 L (6.4-8.2) gm/dl Albumin 2.3 L (3.4-5.0) gm/dl Stl C. diff Tox B Gene (Neg) Hepatitis A IgM Ab (NON-REACTIVE) Hep B Core IgM Ab (NON-REACTIVE) 08/10/19 08/10/19 08/08/19 Range/Units 11:36 11:35 17:28 PT (9.0-12.0) Seconds INR (0.9-1.1) Sodium 144 (136-145) mmol/L Potassium (3.5-5.1) mmol/L Chloride 113 H (98-107) mmol/L Carbon Dioxide 21 (21-32) mmol/L Anion Gap 9.0 (3-11) BUN 5 L (7-18) mg/dl Creatinine 0.62 (0.6-1.2) mg/dl Est Cr Clr Drug Dosing 51.6 ml/min Est GFR ( Amer) 94.0 Est GFR (Non-Af Amer) 81.1 BUN/Creatinine Ratio 8.3 L (10-20) Glucose 96 (70-99) mg/dl Calcium 8.2 L (8.5-10.1) mg/dl Total Bilirubin (0.2-1) mg/dl Direct Bilirubin (0-0.2) mg/dl AST (15-37) U/L ALT (12-78) U/L Alkaline Phosphatase (45-117) U/L Total Protein (6.4-8.2) gm/dl Albumin (3.4-5.0) gm/dl Stl C. diff Tox B Gene Negative Cdiff Gene (Neg) Hepatitis A IgM Ab NON-REACTIVE (NON-REACTIVE) Hep B Core IgM Ab NON-REACTIVE (NON-REACTIVE)
--- NOTE | 2019-08-11 09:56 | Surgery Progress Note ---
Date of Service August 11, 2019 Assessment & Plan (1) Transaminitis: POD # 1 s/p ERCP with biliary sphincterotomy for stone extraction and laparoscopic cholecystectomy. - vitals stable, afebrile - post op pain moderate - no n/v, tolerating regular diet - adequate urine output - INR 1.1 - LFTS improving Plan: PO Tylenol and Tramadol prn pain continue regular diet continue tolu drain may resume coumadin, scds for dvt prophlyaxis Continue abx for UTI consider transition to oral since taking po well Continue medical management Incentive spirometry activity as tolerated (2) UTI (urinary tract infection): Klebsiella sensitive to Ceftriaxone Continue Abx Dr. Ayala has seen and examined pt, agrees with above Subjective eating breakfast currently no nausea or vomiting abdominal pain, upper midline Physical Exam Constitutional: WD/WN, vitals as above no acute distress Respiratory: normal respiratory effort; no respiratory distress Gastrointestinal (Abdomen): Inspection/Auscultation: + abdominal surgical drain present (bloody serosanguienous); abdomen not distended Percussion/Palpation: + abdomen tender (upper midline and RUQ at incision sites, appropriate post op) and abdomen soft; no guarding and abdomen not rigid Skin: no rashes, warm and dry + incision (Covered with dressings) Psychiatric: Orientation: alert Results & Data Vital Signs (Past 12 Hours) Vital Signs Temp Pulse Resp BP Pulse Ox 08/11/19 07:08 36.7 C 75 16 119/66 94 08/11/19 02:30 36.7 C 77 16 109/68 94 08/10/19 23:17 36.6 C 79 16 105/66 93 (1) UTI (urinary tract infection) Hematuria presence: without hematuria Urinary tract infection type: site unspecified Qualified Code(s): N39.0 - Urinary tract infection, site not specified
[2019-08-11] MEDS: TRAMADOL HCL 50 MG TABLET PO PRN ×2 (11:15→15:42)
--- NOTE | 2019-08-11 11:24 | Hospitalist Progress Note ---
Date of Service August 11, 2019 Assessment & Plan (1) Choledocholithiasis with acute cholecystitis with obstruction: s/p ERCP and lap gonzales yesterday, doing well aside from some post-op pain. Cont post-op management per surgery recs. (2) Transaminitis: Improved s/p ERCP with gallstone removal. (3) Metabolic encephalopathy: Resolved. Mentating at baseline. (4) UTI (urinary tract infection): Switch to Cefdinir (5) Hydronephrosis, left: Stable, no further workup per Urology. (6) Sepsis: Resuscitated. (7) DVT prophylaxis: SCDs, hold until cleared for DVT prophy by surgery in post op state. Full Code Dispo-per surgical recovery. Melva Brown DO [facility] Hospitalist Subjective Doing well, oriented. Reports pain post-operatively. Hasn't tried to ambulate. ROS otherwise negative. sister at bedside. All questions answered. Review of Systems Review of Systems: All systems reviewed & are unremarkable except as noted in HPI & below Physical Exam Physical Exam: CONSTITUTIONAL: WNWD, vitals as above, generally well- appearing EYES: normal conjunctivae, no scleral icterus ENT: MMM RESPIRATORY: clear to auscultation bilaterally, no crackles, rales or wheezes, normal respiratory effort CARDIOVASCULAR: regular rate and rhythm, S1 and 2 heard without murmurs, gallops or rubs, no JVD, no peripheral edema GASTROINTESTINAL: normal bowel sounds, soft, nondistended, multiple laparoscopic incision sites present, +JT drain in place. Covered with dry dressings. MUSCULOSKELETAL: moving arms and legs equally, head is normocephalic and atraumatic SKIN: warm and dry, incisions on abdomen as above. NEUROLOGIC: CN 2-12 grossly intact, normal cognition, normal speech, no gross focal deficits PSYCHIATRIC: alert cooperative and oriented Results & Data Vital Signs (Past 12 Hours) Vital Signs Temp Pulse Resp BP Pulse Ox 08/11/19 07:08 36.7 C 75 16 119/66 94 08/11/19 02:30 36.7 C 77 16 109/68 94 Laboratory Results BMP 08/10/19 08/10/19 11:36 19:06 Sodium 144 Potassium 3.3 L Chloride 113 H Carbon Dioxide 21 BUN 5 L Creatinine 0.62 Glucose 96 Calcium 8.2 L Liver Function 08/11/19 Range/Units 06:43 Total Bilirubin 0.5 (0.2-1) mg/dl Direct Bilirubin 0.2 (0-0.2) mg/dl AST 67 H (15-37) U/L ALT 173 H (12-78) U/L Alkaline Phosphatase 146 H (45-117) U/L Albumin 2.3 L (3.4-5.0) gm/dl Medications Administered Current Inpatient Medications Acetaminophen (Tylenol) 650 mg PO Q4H PRN PRN Reason: Pain Stop: 09/10/19 07:55 Last Admin: 08/11/19 08:41 Dose: 650 mg Documented by: Escitalopram Oxalate (Lexapro Tab) 20 mg PO QAM [facility] Stop: 09/08/19 08:59 Last Admin: 08/11/19 08:37 Dose: 20 mg Documented by: Ferrous Sulfate (Feosol) 325 mg PO BID [facility] Stop: 09/07/19 20:59 Last Admin: 08/11/19 08:37 Dose: 325 mg Documented by: Gabapentin (Neurontin) [address] [facility] Stop: 09/07/19 20:59 Last Admin: 08/10/19 21:07 Dose: 100 mg Documented by: Dextrose/Sodium Chloride (D5w And 1/2nss) 1,000 mls @ 60 mls/hr IV .[id number] [facility] Stop: 09/08/19 14:59 Last Admin: 08/11/19 11:12 Dose: 60 mls/hr Documented by: Ceftriaxone Sodium 2,000 mg/ (Dextrose) 70 mls @ 100 mls/hr IV Q24H [facility]; Protocol Stop: 08/20/19 08:59 Last Infusion: 08/11/19 09:24 Dose: Infused Documented by: Magnesium Hydroxide (Milk Of Magnesia) 30 ml PO Q12H PRN PRN Reason: Constipation Stop: 09/07/19 17:38 Mirtazapine (Remeron) [address] [facility] Stop: 09/07/19 20:59 Last Admin: 08/10/19 21:07 Dose: 15 mg Documented by: Morphine Sulfate (Morphine Sulfate) 2 mg IV Q2H PRN PRN Reason: Pain Stop: 08/24/19 16:28 Last Admin: 08/10/19 23:51 Dose: 2 mg Documented by: Ondansetron HCl (Zofran) 4 mg IV Q6H PRN PRN Reason: Nausea Stop: 09/07/19 17:38 Pantoprazole Sodium (Protonix) 40 mg PO QAM [facility] Stop: 09/08/19 08:59 Last Admin: 08/11/19 08:37 Dose: 40 mg Documented by: Polyethylene Glycol (Miralax Powder Packet) 17 gm PO DAILY PRN PRN Reason: Constipation Stop: 09/07/19 17:38 Tramadol HCl (Ultram) 50 mg PO Q4H PRN PRN Reason: Pain Stop: 09/10/19 09:51 Last Admin: 08/11/19 11:15 Dose: 50 mg Documented by: (1) UTI (urinary tract infection) Hematuria presence: without hematuria Urinary tract infection type: site unspecified Qualified Code(s): N39.0 - Urinary tract infection, site not specified (2) Sepsis Sepsis type: sepsis due to unspecified organism Qualified Code(s): A41.9 - Sepsis, unspecified organism
[2019-08-11] MEDS: MoRPHine SULFATE 2 MG/ML CARP IV PRN (12:14)
[2019-08-11] MEDS: GABAPENTIN 100 MG CAP PO SCH (20:32)
[2019-08-11] MEDS: CEFDINIR 300 MG CAP PO SCH (20:32)
[2019-08-11] MEDS: MIRTAZAPINE TAB 15 MG TAB PO SCH (20:33)
[2019-08-12] MEDS: TRAMADOL HCL 50 MG TABLET PO PRN ×2 (05:34→09:33)
[2019-08-12] MEDS: ACETAMINOPHEN 325 MG TAB PO PRN (09:05)
[2019-08-12] MEDS: FERROUS SULFATE 325 MG TAB PO SCH ×2 (09:06→20:28)
[2019-08-12] MEDS: PANTOprazole 40 MG TAB PO SCH (09:06)
[2019-08-12] MEDS: ESCITALOPRAM OXALATE 20 MG TAB PO SCH (09:06)
[2019-08-12] MEDS: CEFDINIR 300 MG CAP PO SCH ×2 (09:48→20:28)
[2019-08-12 10:21] LABS: Hematocrit (blood only) 33.8 % (37-47); Hemoglobin 11.2 g/dL (12.0-16.0); Mean Corpuscular Hemoglobin 34.1 pg (25-34); Mean Corpuscular Hgb Conc 33.1 g/dL (32-36); Mean Platelet Volume 9.2 fL (7.4-10.4); Platelet Count 160 K/uL (130-400); RDW Coefficient of Variation 13.2 % (11.5-14.5); RDW Standard Deviation 50.2 fL (36.4-46.3); Red Blood Count 3.28 M/uL (4.2-5.4); White Blood Count 6.13 K/uL (4.8-10.8)
[2019-08-12 10:56] LABS: Albumin Level 2.3 gm/dl (3.4-5.0); BUN Creatinine Ratio 7.8 (10-20); Calcium 8.7 mg/dl (8.5-10.1); Est GFR (African American) 87.3; Est GFR (Non-African American) 75.3; Potassium 2.7 mmol/L (3.5-5.1)
[2019-08-12 10:57] LABS: Albumin Globulin Ratio 0.7 (0.9-2); Bilirubin,Total 0.5 mg/dl (0.2-1); Globulin 3.4 gm/dl (2.5-4.0); Total Protein 5.7 gm/dl (6.4-8.2)
--- NOTE | 2019-08-12 10:59 | Surgery Progress Note ---
Date of Service August 12, 2019 Assessment & Plan (1) Transaminitis: POD # 2 s/p ERCP with biliary sphincterotomy for stone extraction and laparoscopic cholecystectomy. - vitals stable, afebrile - post op pain moderate, right shoulder pain (likely musculoskeletal given decreased range of motion and limited abduction of right arm , could be component of laparoscopic procedure with air trying to escape as well) - no n/v, tolerating regular diet - adequate urine output - INR 1.1 08/11/19 - LFTS improving, t.bili normal - tolu drain with serosanguineous output Plan: PO Tylenol and Tramadol prn pain continue regular diet continue tolu drain may resume coumadin, scds for dvt prophlyaxis Continue abx for UTI Continue medical management Incentive spirometry activity as tolerated (2) UTI (urinary tract infection): Klebsiella sensitive to Ceftriaxone Continue Abx Dr. Ayala has seen and examined pt, agrees with above Subjective still having some abdominal soreness and now having right shoulder pain "feels like I was kicked in the shoulder" tolerating diet no nausea or vomiting Physical Exam Constitutional: WD/WN, vitals as above no acute distress and not ill appearing Gastrointestinal (Abdomen): Inspection/Auscultation: abdomen normal to in spection and + abdominal surgical drain present (tolu drain with serosanguineous output, no bile); abdomen not distended Percussion/Palpation: + abdomen tender (RUQ at drain site and incisions) and abdomen soft; no guarding and abdomen not rigid Musculoskeletal: limited abduction of the right arm Skin: no rashes, warm and dry + incision (covered with dressings) Psychiatric: Orientation: alert Results & Data Vital Signs (Past 12 Hours) Vital Signs Temp Pulse Resp BP Pulse Ox 08/12/19 07:02 36.4 C L 74 18 117/67 96 08/11/19 23:05 36.7 C 79 19 155/76 H 95 Laboratory Results 08/12/19 08/12/19 08/11/19 Range/Units 10:08 10:08 06:43 WBC 6.13 (4.8-10.8) K/uL RBC 3.28 L (4.2-5.4) M/uL Hgb 11.2 L (12.0-16.0) g/dL Hct 33.8 L (37-47) % MCV 103.0 H (80-100) fL MCH 34.1 H (25-34) pg MCHC 33.1 (32-36) g/dL RDW Std Deviation 50.2 H (36.4-46.3) fL RDW Coeff of Demetrio 13.2 (11.5-14.5) % Plt Count 160 (130-400) K/uL MPV 9.2 (7.4-10.4) fL Sodium 144 (136-145) mmol/L Potassium 2.7 L D (3.5-5.1) mmol/L Chloride 111 H (98-107) mmol/L Carbon Dioxide 24 (21-32) mmol/L Anion Gap 8.0 (3-11) BUN 6 L (7-18) mg/dl Creatinine 0.72 (0.6-1.2) mg/dl Est Cr Clr Drug Dosing 44.0 ml/min Est GFR ( Amer) 87.3 Est GFR (Non-Af Amer) 75.3 BUN/Creatinine Ratio 7.8 L (10-20) Glucose 125 H (70-99) mg/dl Calcium 8.7 (8.5-10.1) mg/dl Total Bilirubin 0.5 (0.2-1) mg/dl AST 26 (15-37) U/L ALT 115 H (12-78) U/L Alkaline Phosphatase 154 H (45-117) U/L Total Protein 5.7 L (6.4-8.2) gm/dl Albumin 2.3 L (3.4-5.0) gm/dl Globulin 3.4 (2.5-4.0) gm/dl Albumin/Globulin Ratio 0.7 L (0.9-2) Lipase 31 L (73-393) U/L (1) UTI (urinary tract infection) Hematuria presence: without hematuria Urinary tract infection type: site unspecified Qualified Code(s): N39.0 - Urinary tract infection, site not specified
[2019-08-12] MEDS ORDERED: POTASSIUM CHLORIDE 20 MEQ TABCR PO SCH (14:00)
[2019-08-12] MEDS ORDERED: OXYCODONE HCL IR 5 MG TAB (IMMEDIATE RELEASE) PO STA (16:45)
[2019-08-12] MEDS ORDERED: WARFARIN SOD 2 MG TAB PO ONE (17:40)
--- NOTE | 2019-08-12 17:41 | Hospitalist Progress Note ---
Date of Service August 12, 2019 Assessment & Plan (1) Choledocholithiasis with acute cholecystitis with obstruction: s/p ERCP and lap gonzales POD#2 doing well aside from some post-op pain. Cont post-op management per surgery recs. JT drain in place but will be removed prior to discharge. DC'd tramadol and added oxycodone for improved pain control. Continue Tylenol as needed. Incision sites are clean and dry and appear to be healing well. (2) Transaminitis: Improved s/p ERCP with gallstone removal. (3) Metabolic encephalopathy: Resolved. Mentating at baseline. (4) UTI (urinary tract infection): Switch to Cefdinir to complete course (5) Hydronephrosis, left: Stable, no further workup per Urology. (6) Sepsis: Resuscitated. (7) DVT prophylaxis: Warfarin, Lovenox for DVT prophylaxis while INR subtherapeutic Full Code Dispo-per surgical recovery. Melva Brown DO [facility] Hospitalist Subjective Postop day 2 status post ERCP with dilation and extraction of gallstone as well as laparoscopic cholecystectomy. The patient reported some referred abdominal pain to the right shoulder yesterday which has resolved and now she is having persistent incisional pain and laparoscopic sites. JT drain is still in place. She has no distention of the abdomen and has had a bowel movement and is passing gas. She otherwise denies any nausea and is tolerating food without issue. She denies any fevers or chills or any other issues at this time. The tramadol is been unsuccessful in controlling her pain. Review of Systems Review of Systems: All systems reviewed & are unremarkable except as noted in HPI & below Physical Exam Physical Exam: CONSTITUTIONAL: WNWD, vitals as above, generally well- appearing EYES: normal conjunctivae, no scleral icterus ENT: MMM RESPIRATORY: clear to auscultation bilaterally, no crackles, rales or wheezes, normal respiratory effort CARDIOVASCULAR: regular rate and rhythm, S1 and 2 heard without murmurs, gallops or rubs, no JVD, no peripheral edema GASTROINTESTINAL: normal bowel sounds, soft, nondistended, multiple laparoscopic incision sites present, +JT drain in place. Covered with dry dressings. MUSCULOSKELETAL: moving arms and legs equally, head is normocephalic and atraumatic SKIN: warm and dry, incisions on abdomen as above. NEUROLOGIC: CN 2-12 grossly intact, normal cognition, normal speech, no gross focal deficits PSYCHIATRIC: alert cooperative and oriented Results & Data Vital Signs (Past 12 Hours) Vital Signs Temp Pulse Resp BP Pulse Ox 08/12/19 15:16 37.0 C 80 18 126/85 95 08/12/19 07:02 36.4 C L 74 18 117/67 96 Laboratory Results Short CBC 08/12/19 Range/Units 10:08 WBC 6.13 (4.8-10.8) K/uL Hgb 11.2 L (12.0-16.0) g/dL Hct 33.8 L (37-47) % Plt Count 160 (130-400) K/uL BMP 08/12/19 10:08 Sodium 144 Potassium 2.7 L D Chloride 111 H Carbon Dioxide 24 BUN 6 L Creatinine 0.72 Glucose 125 H Calcium 8.7 Liver Function 08/12/19 Range/Units 10:08 Total Bilirubin 0.5 (0.2-1) mg/dl AST 26 (15-37) U/L ALT 115 H (12-78) U/L Alkaline Phosphatase 154 H (45-117) U/L Albumin 2.3 L (3.4-5.0) gm/dl Medications Administered Current Inpatient Medications Acetaminophen (Tylenol) 650 mg PO Q4H PRN PRN Reason: Pain Stop: 09/10/19 07:55 Last Admin: 08/12/19 09:05 Dose: 650 mg Documented by: Cefdinir (Omnicef Cap) 300 mg PO BID YASHIRA Stop: 08/19/19 09:01 Last Admin: 08/12/19 09:48 Dose: 300 mg Documented by: Escitalopram Oxalate (Lexapro Tab) 20 mg PO QAM YASHIRA Stop: 09/08/19 08:59 Last Admin: 08/12/19 09:06 Dose: 20 mg Documented by: Ferrous Sulfate (Feosol) 325 mg PO BID YASHIRA Stop: 09/07/19 20:59 Last Admin: 08/12/19 09:06 Dose: 325 mg Documented by: Gabapentin (Neurontin) 100 mg PO HS YASHIRA Stop: 09/07/19 20:59 Last Admin: 08/11/19 20:32 Dose: 100 mg Documented by: Magnesium Hydroxide (Milk Of Magnesia) 30 ml PO Q12H PRN PRN Reason: Constipation Stop: 09/07/19 17:38 Mirtazapine (Remeron) 15 mg PO HS [facility] Stop: 09/07/19 20:59 Last Admin: 08/11/19 20:33 Dose: 15 mg Documented by: Morphine Sulfate (Morphine Sulfate) 2 mg IV Q2H PRN PRN Reason: Pain Stop: 08/24/19 16:28 Last Admin: 08/11/19 12:14 Dose: 2 mg Documented by: Ondansetron HCl (Zofran) 4 mg IV Q6H PRN PRN Reason: Nausea Stop: 09/07/19 17:38 Oxycodone HCl (Roxicodone Immediate Rel) 5 mg PO Q4H PRN PRN Reason: Pain Stop: 08/26/19 16:43 Pantoprazole Sodium ([facility]ix) [facility] Stop: 09/08/19 08:59 Last Admin: 08/12/19 09:06 Dose: 40 mg Documented by: Polyethylene Glycol (Miralax Powder Packet) 17 gm PO DAILY PRN PRN Reason: Constipation Stop: 09/07/19 17:38 Potassium Chloride ([place] Elix) 40 meq PO ONE ONE Stop: 08/12/19 22:01 Warfarin Sodium (Coumadin) 2 mg PO SuTh@1600 [facility] Stop: 09/14/19 15:59 Warfarin Sodium (Coumadin) 1 mg PO MoTuWeFrSa@1600 [facility] Stop: 09/12/19 15:59 Warfarin Sodium (Coumadin) 2 mg PO ONE [facility] Stop: 09/11/19 17:39 (1) UTI (urinary tract infection) Hematuria presence: without hematuria Urinary tract infection type: site unspecified Qualified Code(s): N39.0 - Urinary tract infection, site not specif ied (2) Sepsis Sepsis type: sepsis due to unspecified organism Qualified Code(s): A41.9 - Sepsis, unspecified organism
[2019-08-12] MEDS: ENOXAPARIN INJ 40 MG/0.4 ML SYR SQ SCH (19:15)
[2019-08-12] MEDS: MIRTAZAPINE TAB 15 MG TAB PO SCH (20:28)
[2019-08-12] MEDS: GABAPENTIN 100 MG CAP PO SCH (20:29)
[2019-08-12] MEDS ORDERED: POTASSIUM CHLORIDE 20 MEQ/15 ML UDC PO ONE (22:00)
[2019-08-12] MEDS: OXYCODONE HCL IR 5 MG TAB (IMMEDIATE RELEASE) PO PRN (23:41)
[2019-08-13 05:24] LABS: Hematocrit (blood only) 32.2 % (37-47); Hemoglobin 10.8 g/dL (12.0-16.0); Mean Corpuscular Hemoglobin 34.1 pg (25-34); Mean Corpuscular Hgb Conc 33.5 g/dL (32-36); Mean Corpuscular Volume 101.6 fL (80-100); Mean Platelet Volume 8.9 fL (7.4-10.4); Platelet Count 179 K/uL (130-400); RDW Coefficient of Variation 13.2 % (11.5-14.5); RDW Standard Deviation 48.9 fL (36.4-46.3); Red Blood Count 3.17 M/uL (4.2-5.4); White Blood Count 6.73 K/uL (4.8-10.8)
[2019-08-13 06:08] LABS: BUN Creatinine Ratio 9.7 (10-20); Calcium 8.3 mg/dl (8.5-10.1); Creatinine Clr Calc Pharmacy 51.1 ml/min; Est GFR (Non-African American) 81.1; Magnesium 1.8 mg/dl (1.8-2.4); Potassium 3.4 mmol/L (3.5-5.1)
[2019-08-13] MEDS: OXYCODONE HCL IR 5 MG TAB (IMMEDIATE RELEASE) PO PRN ×2 (07:37→16:07)
[2019-08-13] MEDS: ESCITALOPRAM OXALATE 20 MG TAB PO SCH (07:38)
[2019-08-13] MEDS: PANTOprazole 40 MG TAB PO SCH (07:38)
[2019-08-13] MEDS: CEFDINIR 300 MG CAP PO SCH ×2 (07:38→20:15)
[2019-08-13] MEDS: FERROUS SULFATE 325 MG TAB PO SCH (07:39)
--- NOTE | 2019-08-13 09:35 | Surgery Progress Note ---
Date of Service August 13, 2019 Assessment & Plan (1) Choledocholithiasis with acute cholecystitis: Postoperative day #3 status post laparoscopic cholecystectomy Doing well Complaining of pain under the incision but there is no evidence of peritonitis JT drain has serosanguineous fluid and can be removed prior to discharge Subjective Postoperative day #3 status post lap scopic cholecystectomy Shoulder pain has resolved Complaining of discomfort beneath the upper midline incision Tolerating regular diet No nausea or vomiting JT drain had 80 cc out yesterday and 20 over the last shift all of which is been serosanguineous Physical Exam Gastrointestinal (Abdomen): Inspection/Auscultation: normal bowel sounds; abdomen not distended Percussion/Palpation: + abdomen tender (Incisional only) and abdomen soft Results & Data Vital Signs (Past 12 Hours) Vital Signs Temp Pulse Resp BP Pulse Ox 08/13/19 07:03 36.7 C 75 16 152/78 H 93 08/12/19 23:25 36.9 C 79 17 136/78 92
[2019-08-13] MEDS ORDERED: POTASSIUM CHLORIDE 20 MEQ/15 ML UDC PO STA (10:19)
[2019-08-13] MEDS ORDERED: HYDROmorphone INJ 0.5 MG/0.5 ML SYR IV STA (13:41)
--- NOTE | 2019-08-13 13:45 | Hospitalist Progress Note ---
Date of Service August 13, 2019 Assessment & Plan (1) Post-ERCP acute pancreatitis: Persistent epigastric pain not controlled with oxycodone worse with food and post ERCP likely for post ERCP acute pancreatitis. Will place patient on bowel rest at this time and add IV fluids at 150 cc an hour. We will add Dilaudid IV now and as needed as needed as this can be rather painful. We will continue oxycodone as needed and will schedule Tylenol. Continue supportive care and monitor for improvement overnight. Lipase is pending. (2) Choledocholithiasis with acute cholecystitis with obstruction: s/p ERCP and lap gonzales POD#3 doing well from the standpoint. Incision sites look good and are not painful. JT drain in place but will be removed prior to discharge. (3) Transaminitis: Improved s/p ERCP with gallstone removal. (4) Metabolic encephalopathy: Resolved. Mentating at baseline. (5) UTI (urinary tract infection): Cefdinir to complete course (6) Hydronephrosis, left: Stable, no further workup per Urology. (7) Sepsis: Resuscitated. (8) DVT prophylaxis: Warfarin, Lovenox for DVT prophylaxis while INR subtherapeutic Full Code Dispo-likely here through the weekend. Melva Brown DO [facility] Hospitalist Subjective Persistent pain in the epigastric region, somewhat worse with food today. Patient denies any fevers or chills. States the pain is not improved with oxycodone overnight. Denies any bowel movements today but is not reporting constipation. Passing flatus. Review of Systems Review of Systems: All systems reviewed & are unremarkable except as noted in HPI & below Physical Exam Physical Exam: CONSTITUTIONAL: WNWD, vitals as above, mild distress with movement. EYES: normal conjunctivae, no scleral icterus ENT: MMM RESPIRATORY: clear to auscultation bilaterally, no crackles, rales or wheezes, normal respiratory effort CARDIOVASCULAR: regular rate and rhythm, S1 and 2 heard without murmurs, gallops or rubs, no JVD, no peripheral edema GASTROINTESTINAL: normal bowel sounds, soft, +epigastric tenderness, nondistended, multiple laparoscopic incision sites present, +JT drain in place. Covered with dry dressings. MUSCULOSKELETAL: moving arms and legs equally, head is normocephalic and atraumatic SKIN: warm and dry, incisions on abdomen as above. NEUROLOGIC: CN 2-12 grossly intact, normal cognition, normal speech, no gross focal deficits PSYCHIATRIC: alert cooperative and oriented Results & Data Vital Signs (Past 12 Hours) Vital Signs Temp Pulse Resp BP Pulse Ox 08/13/19 07:03 36.7 C 75 16 152/78 H 93 Laboratory Results Short CBC 08/13/19 Range/Units 05:11 WBC 6.73 (4.8-10.8) K/uL Hgb 10.8 L (12.0-16.0) g/dL Hct 32.2 L (37-47) % Plt Count 179 (130-400) K/uL BMP 08/13/19 05:11 Sodium 143 Potassium 3.4 L D Chloride 111 H Carbon Dioxide 26 BUN 6 L Creatinine 0.62 Glucose 76 Calcium 8.3 L Medications Administered Current Inpatient Medications Cefdinir (Omnicef Cap) 300 mg PO BID YASHIRA Stop: 08/19/19 09:01 Last Admin: 08/13/19 07:38 Dose: 300 mg Documented by: Enoxaparin Sodium (Lovenox) 40 mg SQ Q24H YASHIRA Stop: 09/11/19 17:59 Last Admin: 08/12/19 19:15 Dose: 40 mg Documented by: Escitalopram Oxalate (Lexapro Tab) 20 mg PO QAM YASHIRA Stop: 09/08/19 08:59 Last Admin: 08/13/19 07:38 Dose: 20 mg Documented by: Gabapentin (Neurontin) 100 mg PO HS YASHIRA Stop: 09/07/19 20:59 Last Admin: 08/12/19 20:29 Dose: 100 mg Documented by: Hydromorphone HCl (Dilaudid) 0.5 mg IV NOW STA Stop: 08/13/19 13:42 Hydromorphone HCl (Dilaudid) 0.5 mg IV Q4H PRN PRN Reason: Severe Pain Stop: 08/27/19 13:40 Sodium Chloride (Nss 1000ml) 1,000 mls @ 150 mls/hr IV .Q6H40M YASHIRA Stop: 09/12/19 13:44 Acetaminophen (Ofirmev) 1,000 mg in 100 mls @ 400 mls/hr IV Q8H YASHIRA Stop: 09/12/19 13:44 Magnesium Hydroxide (Milk Of Magnesia) 30 ml PO Q12H PRN PRN Reason: Constipation Stop: 09/07/19 17:38 Mirtazapine (Remeron) 15 mg PO HS [facility] Stop: 09/07/19 20:59 Last Admin: 08/12/19 20:28 Dose: 15 mg Documented by: Ondansetron HCl (Zofran) 4 mg IV Q6H PRN PRN Reason: Nausea Stop: 09/07/19 17:38 Oxycodone HCl (Roxicodone Immediate Rel) 5 mg PO Q4H PRN PRN Reason: Pain Stop: 08/26/19 16:43 Last Admin: 08/13/19 07:37 Dose: 5 mg Documented by: Pantoprazole Sodium (Protonix) 40 mg PO QAM [facility] Stop: 09/08/19 08:59 Last Admin: 08/13/19 07:38 Dose: 40 mg Documented by: Polyethylene Glycol (Miralax Powder Packet) 17 gm PO DAILY PRN PRN Reason: Constipation Stop: 09/07/19 17:38 Warfarin Sodium (Coumadin) 2 mg PO SuTh@1600 YASHIRA Stop: 09/14/19 15:59 Warfarin Sodium (Coumadin) 1 mg PO MoTuWeFrSa@1600 Y[facility]IRA Stop: 09/12/19 15:59 (1) UTI (urinary tract infection) Hematuria presence: without hematuria Urinary tract infection type: site unspecified Qualified Code(s): N39.0 - Urinary tract infection, site not specified (2) Sepsis Sepsis type: sepsis due to unspecified organism Qualified Code(s): A41.9 - Sepsis, unspecified organism
[2019-08-13] MEDS: SODIUM CHLORIDE 0.9% 1000ML 1,000 ML IV SCH ×2 (13:52→20:18)
[2019-08-13] MEDS: ACETAMINOPHEN 1,000 MG/100 ML VIAL IV SCH ×2 (14:35→21:41)
[2019-08-13] MEDS: WARFARIN SOD 1 MG TAB PO SCH (16:08)
[2019-08-13] MEDS ORDERED: HYDROmorphone INJ 0.5 MG/0.5 ML SYR IV PRN (17:30)
--- NOTE | 2019-08-13 18:24 | CT Scan Report ---
CT SCAN OF THE ABDOMEN AND PELVIS WITHOUT CONTRAST CLINICAL HISTORY: persistent post-op epigastric pain HISTORY OF CHOLECYSTECTOMY COMPARISON STUDY: 08/08/2019 TECHNIQUE: CT scan of the abdomen and pelvis was performed from the lung bases to the proximal femurs . Images are reviewed in the axial, sagittal, and coronal planes. IV contrast was not administered fo r this examination. A dose lowering technique was utilized adhering to the principles of ALARA. CT DOSE: 291.94 mGy.cm FINDINGS: Lower chest: There are trace bilateral pleural effusions. There are mild basilar atelectatic changes. Liver: The unenhanced liver is normal in size, contour, and attenuation. There is no intrahepatic manuel iary ductal dilatation. Gallbladder: Surgically absent. There is a subhepatic drain present. Spleen: Normal in size and attenuation. Pancreas: Unremarkable. Adrenal glands: Unremarkable. Kidneys: There is persistent left-sided hydronephrosis. There is left-sided nephrolithiasis. No urete ral or bladder calculi are visualized. Portions of the left ureter and secured due to artifact from a left hip arthroplasty. Bowel: There are no transition zones to indicate bowel obstruction. There are scattered air-fluid lev els present within the bowel. There is no acute diverticulitis. There are no findings to indicate acu te appendicitis. Peritoneum: There is free intraperitoneal air, presumably postsurgical. There is also air present wit hin the right rectus sheath, likely postsurgical. There is mild edema surrounding the umbilicus, like ly postsurgical. There is no significant ascites Vasculature: The abdominal aorta is normal in course and caliber. Adenopathy: None. Pelvic viscera: The bladder, and pelvic viscera are unremarkable. 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 There are posts urgical changes of a lumbar spinal fusion. Evaluation is limited by the lack of intravenous and oral contrast. IMPRESSION: 1. Interval cholecystectomy. Mild edema within the gallbladder fossa, likely postsurgical. No large f luid collections to indicate a significant hematoma, biloma, or abscess. 2. Right-sided subhepatic drain. 3. Small amount of free intraperitoneal air, and air within the rectus sheath likely postsurgical 4. No evidence of bowel obstruction. No evidence of free air. Scattered air-fluid levels, likely seco ndary to a mild ileus 5. Left-sided nephrolithiasis and hydronephrosis, similar to the prior study. No ureteral calculi vis ualized Electronically signed by: Eliel Adkins M.D. 08/13/2019 6:23 PM
[2019-08-13] MEDS: ENOXAPARIN INJ 40 MG/0.4 ML SYR SQ SCH (18:30)
[2019-08-13] MEDS: GABAPENTIN 100 MG CAP PO SCH (20:15)
[2019-08-13] MEDS: MIRTAZAPINE TAB 15 MG TAB PO SCH (20:15)
[2019-08-14] MEDS: SODIUM CHLORIDE 0.9% 1000ML 1,000 ML IV SCH ×2 (02:15→09:20)
[2019-08-14] MEDS: ACETAMINOPHEN 1,000 MG/100 ML VIAL IV SCH ×2 (05:18→13:31)
[2019-08-14 05:23] LABS: Hematocrit (blood only) 36.4 % (37-47); Hemoglobin 12.1 g/dL (12.0-16.0); Mean Corpuscular Hemoglobin 34.1 pg (25-34); Mean Corpuscular Hgb Conc 33.2 g/dL (32-36); Mean Corpuscular Volume 102.5 fL (80-100); Mean Platelet Volume 9.2 fL (7.4-10.4); Platelet Count 174 K/uL (130-400); RDW Coefficient of Variation 13.3 % (11.5-14.5); RDW Standard Deviation 49.8 fL (36.4-46.3); Red Blood Count 3.55 M/uL (4.2-5.4); White Blood Count 4.86 K/uL (4.8-10.8)
[2019-08-14 05:43] LABS: INR 1.1 (0.9-1.1); Prothrombin Time 10.8 Seconds (9.0-12.0)
[2019-08-14 05:49] LABS: Albumin Level 2.2 gm/dl (3.4-5.0); Calcium 8.2 mg/dl (8.5-10.1); Est GFR (African American) 94.5; Est GFR (Non-African American) 81.5; Potassium 3.3 mmol/L (3.5-5.1)
[2019-08-14 05:52] LABS: Albumin Globulin Ratio 0.6 (0.9-2); Bilirubin,Total 0.5 mg/dl (0.2-1); Globulin 3.6 gm/dl (2.5-4.0); Total Protein 5.8 gm/dl (6.4-8.2)
[2019-08-14] MEDS: CEFDINIR 300 MG CAP PO SCH ×2 (09:20→20:03)
[2019-08-14] MEDS: PANTOprazole 40 MG TAB PO SCH ×2 (09:20→20:04)
[2019-08-14] MEDS: ESCITALOPRAM OXALATE 20 MG TAB PO SCH (09:20)
[2019-08-14] MEDS: POTASSIUM CHLORIDE 20 MEQ TABCR PO SCH ×2 (09:20→15:43)
[2019-08-14] MEDS: OXYCODONE HCL IR 5 MG TAB (IMMEDIATE RELEASE) PO PRN ×2 (09:24→13:57)
--- NOTE | 2019-08-14 09:35 | Surgery Progress Note ---
Date of Service August 14, 2019 Assessment & Plan (1) Choledocholithiasis with acute cholecystitis with obstruction: doing better clinically can reinstitute diet can d/c drain ( scant/serous) nothing further to add surgically Subjective pt seen. resting comfortably. nad states pain much improved from yesterday no appetite yet. Physical Exam Physical Exam: awake. nad. no respiratory distress abd: soft. wounds look good. Results & Data Vital Signs (Past 12 Hours) Vital Signs Temp Pulse Pulse Resp BP Pulse Ox 08/14/19 07:09 36.3 C L 76 15 157/86 H 96 08/13/19 23:40 36.5 C 66 16 159/82 H 93 PG Care Time/CCT Total # of Minutes Spent Total Time Spent with Patient: Total time spent is greater than 50% in coordination of care (as documented) at patient's floor/unit and/or counseling patient:
[2019-08-14] MEDS: WARFARIN SOD 1 MG TAB PO SCH (15:44)
--- NOTE | 2019-08-14 16:14 | Hospitalist Progress Note ---
Date of Service August 14, 2019 Assessment & Plan (1) Abdominal pain: Lipase negative, CT negative for acute pathology, diet restarted this morning and she is doing well with soups but otherwise not interested in food. Denies nausea or vomiting, pain meds not helping, denies improvement on IVF. Doubt pancreatitis at this point. Possible gastritis causing pain after discussion with surgery. Increased protonix to BID and added scheduled TUMS. (2) Choledocholithiasis with acute cholecystitis with obstruction: s/p ERCP and lap gonzales POD#4 doing well aside from pain above. Incision sites look good. JT drain was removed. Rehab limited as patient is bedbound and deconditioned. (3) Transaminitis: resolved to baseline s/p ERCP with gallstone removal. (4) Metabolic encephalopathy: Resolved. Mentating at baseline. (5) UTI (urinary tract infection): Cefdinir to complete course (6) Hydronephrosis, left: Stable, no further workup per Urology. (7) Sepsis: Resuscitated. (8) DVT prophylaxis: Warfarin, Lovenox for DVT prophylaxis while INR subtherapeutic Full Code Dispo-likely here through the weekend. Melva Brown DO [facility] Hospitalist Subjective still reports epigastric pain oxy/dilaudid/APAP scheduled not touching it worse with movement she is only eating soups because she is food averse despite diet restarting this morning CT unremarkable for acute pathology yesterday no nausea or vomiting no distension in abdomen Review of Systems Review of Systems: All systems reviewed & are unremarkable except as noted in HPI & below Physical Exam Physical Exam: CONSTITUTIONAL: WNWD, vitals as above, mild distress with movement. EYES: normal conjunctivae, no scleral icterus ENT: MMM RESPIRATORY: clear to auscultation bilaterally, no crackles, rales or wheezes, normal respiratory effort CARDIOVASCULAR: regular rate and rhythm, S1 and 2 heard without murmurs, gallops or rubs, no JVD, no peripheral edema GASTROINTESTINAL: normal bowel sounds, soft, +epigastric tenderness, nondistended, multiple laparoscopic incision sites present. Covered with dry dressings. MUSCULOSKELETAL: cannot sit up on her own, reports that she can feed herself, moving arms and legs equally, head is normocephalic and atraumatic, deconditioned. SKIN: warm and dry, incisions on abdomen as above. NEUROLOGIC: CN 2-12 grossly intact, normal cognition, normal speech, no gross focal deficits PSYCHIATRIC: alert cooperative and oriented Results & Data Vital Signs (Past 12 Hours) Vital Signs Temp Pulse Resp BP Pulse Ox 08/14/19 15:37 36.7 C 64 17 142/78 H 94 08/14/19 07:09 36.3 C L 76 15 157/86 H 96 Laboratory Results Short CBC 08/14/19 Range/Units 05:04 WBC 4.86 (4.8-10.8) K/uL Hgb 12.1 (12.0-16.0) g/dL Hct 36.4 L (37-47) % Plt Count 174 (130-400) K/uL BMP 08/14/19 05:04 Sodium 148 H Potassium 3.3 L Chloride 114 H Carbon Dioxide 30 BUN 4 L Creatinine 0.61 Glucose 76 Calcium 8.2 L Liver Function 08/14/19 Range/Units 05:04 Total Bilirubin 0.5 (0.2-1) mg/dl AST 12 L (15-37) U/L ALT 70 (12-78) U/L Alkaline Phosphatase 123 H (45-117) U/L Albumin 2.2 L (3.4-5.0) gm/dl Medications Administered Current Inpatient Medications Acetaminophen (Tylenol) 650 mg PO Q6H PRN PRN Reason: Pain Stop: 09/13/19 15:27 Calcium Carbonate (Tums) 1,000 mg PO DAILY@1700 YASHIRA Stop: 09/13/19 16:59 Cefdinir (Omnicef Cap) 300 mg PO BID YASHIRA Stop: 08/19/19 09:01 Last Admin: 08/14/19 09:20 Dose: 300 mg Documented by: Enoxaparin Sodium (Lovenox) 40 mg SQ Q24H YASHIRA Stop: 09/11/19 17:59 Last Admin: 08/13/19 18:30 Dose: 40 mg Documented by: Escitalopram Oxalate (Lexapro Tab) 20 mg PO QAM YASHIRA Stop: 09/08/19 08:59 Last Admin: 08/14/19 09:20 Dose: 20 mg Documented by: Gabapentin (Neurontin) 100 mg PO HS Y[facility]IRA Stop: 09/07/19 20:59 Last Admin: 08/13/19 20:15 Dose: 100 mg Documented by: Hydromorphone HCl (Dilaudid) 0.5 mg IV Q4H PRN PRN Reason: Severe Pain Stop: 08/27/19 17:29 Magnesium Hydroxide (Milk Of Magnesia) 30 ml PO Q12H PRN PRN Reason: Constipation Stop: 09/07/19 17:38 Mirtazapine (Remeron) 15 mg PO HS [facility] Stop: 09/07/19 20:59 Last Admin: 08/13/19 20:15 Dose: 15 mg Documented by: Ondansetron HCl (Zofran) 4 mg IV Q6H PRN PRN Reason: Nausea Stop: 09/07/19 17:38 Oxycodone HCl (Roxicodone Immediate Rel) 5 mg PO Q4H PRN PRN Reason: Pain Stop: 08/26/19 16:43 Last Admin: 08/14/19 13:57 Dose: 5 mg Documented by: Pantoprazole Sodium (Protonix) 40 mg PO BID [facility] Stop: 09/13/19 20:59 Polyethylene Glycol (Miralax Powder Packet) 17 gm PO DAILY PRN PRN Reason: Constipation Stop: 09/07/19 17:38 Warfarin Sodium (Coumadin) 2 mg PO SuTh@1600 Y[facility] Stop: 09/14/19 15:59 Warfarin Sodium (Coumadin) 1 mg PO MoTuWeFrSa@1600 [facility] Stop: 09/12/19 15:59 Last Admin: 08/14/19 15:44 Dose: 1 mg Documented by: (1) UTI (urinary tract infection) Hematuria presence: without hematuria Urinary tract infection type: site unspecified Qualified Code(s): N39.0 - Urinary tract infection, site not specified (2) Sepsis Sepsis type: sepsis due to unspecified organism Qualified Code(s): A41.9 - Sepsis, unspecified organism
[2019-08-14] MEDS: CALCIUM CARBONATE 500 MG CHEWABLE TAB PO SCH (17:52)
[2019-08-14] MEDS: ACETAMINOPHEN 325 MG TAB PO PRN (17:53)
[2019-08-14] MEDS: ENOXAPARIN INJ 40 MG/0.4 ML SYR SQ SCH (17:53)
[2019-08-14] MEDS: GABAPENTIN 100 MG CAP PO SCH (20:03)
[2019-08-14] MEDS: MIRTAZAPINE TAB 15 MG TAB PO SCH (20:04)
[2019-08-15 05:48] LABS: INR 1.3 (0.9-1.1); Prothrombin Time 12.7 Seconds (9.0-12.0)
[2019-08-15 09:09] LABS: BUN Creatinine Ratio 8.5 (10-20); Calcium 8.8 mg/dl (8.5-10.1); Est GFR (African American) 96.1; Est GFR (Non-African American) 82.9; Magnesium 1.9 mg/dl (1.8-2.4); Potassium 3.3 mmol/L (3.5-5.1)
--- NOTE | 2019-08-15 10:03 | Surgery Progress Note ---
Date of Service August 15, 2019 Assessment & Plan (1) Choledocholithiasis with acute cholecystitis: CT essentially neg. nothing to add surgically d/c planning Dr. Ayala back tomorrow. Subjective pt resting comfortably. nad. Physical Exam Physical Exam: abd: soft. nd. incisions look good. Results & Data Vital Signs (Past 12 Hours) Vital Signs Temp Pulse Pulse Resp BP Pulse Ox 08/15/19 07:07 36.5 C 65 16 159/87 H 96 08/14/19 23:15 36.5 C 60 14 166/84 H 95 PG Care Time/CCT Total # of Minutes Spent Total Time Spent with Patient: Total time spent is greater than 50% in coordination of care (as documented) at patient's floor/unit and/or counseling patient:
[2019-08-15] MEDS: ESCITALOPRAM OXALATE 20 MG TAB PO SCH (10:13)
[2019-08-15] MEDS: PANTOprazole 40 MG TAB PO SCH ×2 (10:14→20:59)
[2019-08-15] MEDS: CEFDINIR 300 MG CAP PO SCH ×2 (10:14→20:59)
[2019-08-15] MEDS: POTASSIUM CHLORIDE 20 MEQ TABCR PO SCH ×2 (11:34→17:05)
[2019-08-15] MEDS: DICYCLOMINE HCL 10 MG CAP PO SCH ×2 (13:18→21:00)
[2019-08-15] MEDS: ACETAMINOPHEN 325 MG TAB PO PRN (15:29)
[2019-08-15] MEDS ORDERED: WARFARIN SOD 2 MG TAB PO SCH (16:00)
[2019-08-15] MEDS: OXYCODONE HCL IR 5 MG TAB (IMMEDIATE RELEASE) PO PRN (16:22)
[2019-08-15] MEDS: CALCIUM CARBONATE 500 MG CHEWABLE TAB PO SCH (16:23)
[2019-08-15] MEDS: ENOXAPARIN INJ 40 MG/0.4 ML SYR SQ SCH (17:05)
--- NOTE | 2019-08-15 17:32 | Hospitalist Progress Note ---
Date of Service August 15, 2019 Assessment & Plan (1) Abdominal pain: Persistent and possibly worse per patient this morning. Added Bentyl to Protonix BiD and TUMS scheduled. Will re-engage with GI and Gen Surg in am. (2) Choledocholithiasis with acute cholecystitis with obstruction: s/p ERCP and lap gonzales doing well aside from pain above. Incision sites look good. JT drain was removed. Rehab limited as patient is bedbound and deconditioned. (3) Transaminitis: resolved to baseline s/p ERCP with gallstone removal. (4) Metabolic encephalopathy: Resolved. Mentating at baseline. (5) UTI (urinary tract infection): Cefdinir to complete course (6) Hydronephrosis, left: Stable, no further workup per Urology. (7) Sepsis: Resuscitated. (8) DVT prophylaxis: Warfarin, Lovenox for DVT prophylaxis while INR subtherapeutic Full Code Dispo-likely here through the weekend. Melva Brown DO [facility] Hospitalist Subjective reports persistent epigastric pain, not made better by switching to BID protonix or by adding TUMS. Denies nausea, but eating broths and soups denies fevers, chills or other symptoms at this time. Review of Systems Review of Systems: All systems reviewed & are unremarkable except as noted in HPI & below Physical Exam Physical Exam: CONSTITUTIONAL: WNWD, vitals as above, mild distress with movement. EYES: normal conjunctivae, no scleral icterus ENT: MMM RESPIRATORY: clear to auscultation bilaterally, no crackles, rales or wheezes, normal respiratory effort CARDIOVASCULAR: regular rate and rhythm, S1 and 2 heard without murmurs, gallops or rubs, no JVD, no peripheral edema GASTROINTESTINAL: normal bowel sounds, soft, +epigastric tenderness, nondistended, multiple laparoscopic incision sites present. Covered with dry dressings. MUSCULOSKELETAL: cannot sit up on her own, moving arms and legs equally, head is normocephalic and atraumatic, deconditioned. SKIN: warm and dry, incisions on abdomen as above. NEUROLOGIC: CN 2-12 grossly intact, normal cognition, normal speech, no gross focal deficits PSYCHIATRIC: alert cooperative and oriented Results & Data Vital Signs (Past 12 Hours) Vital Signs Temp Pulse Resp BP Pulse Ox 08/15/19 15:12 37.2 C 76 18 136/72 94 08/15/19 07:07 36.5 C 65 16 159/87 H 96 Laboratory Results BMP 08/15/19 05:22 Sodium 145 Potassium 3.3 L Chloride 111 H Carbon Dioxide 29 BUN 5 L Creatinine 0.58 L Glucose 81 Calcium 8.8 Medications Administered Current Inpatient Medications Acetaminophen (Tylenol) 650 mg PO Q6H PRN PRN Reason: Pain Stop: 09/13/19 15:27 Last Admin: 08/15/19 15:29 Dose: 650 mg Documented by: Calcium Carbonate (Tums) 1,000 mg PO DAILY@1700 [facility] Stop: 09/13/19 16:59 Last Admin: 08/15/19 16:23 Dose: 1,000 mg Documented by: Cefdinir (Omnicef Cap) 300 mg PO BID [facility] Stop: 08/19/19 09:01 Last Admin: 08/15/19 10:14 Dose: 300 mg Documented by: Dicyclomine HCl (Bentyl) 10 mg PO TID [facility] Stop: 08/17/19 09:01 Last Admin: 08/15/19 13:18 Dose: 10 mg Documented by: Enoxaparin Sodium (Lovenox) 40 mg SQ Q24H [facility] Stop: 09/11/19 17:59 Last Admin: 08/15/19 17:05 Dose: 40 mg Documented by: Escitalopram Oxalate (Lexapro Tab) 20 mg PO QAM [facility] Stop: 09/08/19 08:59 Last Admin: 08/15/19 10:13 Dose: 20 mg Documented by: Gabapentin (Neurontin) 100 mg PO [facility] Stop: 09/07/19 20:59 Last Admin: 08/14/19 20:03 Dose: 100 mg Documented by: Hydromorphone HCl (Dilaudid) 0.5 mg IV Q4H PRN PRN Reason: Severe Pain Stop: 08/27/19 17:29 Magnesium Hydroxide (Milk Of Magnesia) 30 ml PO Q12H PRN PRN Reason: Constipation Stop: 09/07/19 17:38 Mirtazapine (Remeron) 15 mg PO [facility] Stop: 09/07/19 20:59 Last Admin: 08/14/19 20:04 Dose: 15 mg Documented by: Ondansetron HCl (Zofran) 4 mg IV Q6H PRN PRN Reason: Nausea Stop: 09/07/19 17:38 Oxycodone HCl (Roxicodone Immediate Rel) 5 mg PO Q4H PRN PRN Reason: Pain Stop: 08/26/19 16:43 Last Admin: 08/15/19 16:22 Dose: 5 mg Documented by: Pantoprazole Sodium (Protonix) 40 mg PO BID [facility] Stop: 09/13/19 20:59 Last Admin: 08/15/19 10:14 Dose: 40 mg Documented by: Polyethylene Glycol (Miralax Powder Packet) 17 gm PO DAILY PRN PRN Reason: Constipation Stop: 09/07/19 17:38 Warfarin Sodium (Coumadin) 2 mg PO SuTh@1600 [facility] Stop: 09/14/19 15:59 Last Admin: 08/15/19 15:29 Dose: 2 mg Documented by: Warfarin Sodium (Coumadin) 1 mg PO MoTuWeFrSa@1600 [facility] Stop: 09/12/19 15:59 Last Admin: 08/14/19 15:44 Dose: 1 mg Documented by: (1) UTI (urinary tract infection) Hematuria presence: without hematuria Urinary tract infection type: site unspecified Qualified Code(s): N39.0 - Urinary tract infection, site not specified (2) Sepsis Sepsis type: sepsis due to unspecified organism Qualified Code(s): A41.9 - Sepsis, unspecified organism
[2019-08-15] MEDS: GABAPENTIN 100 MG CAP PO SCH (20:58)
[2019-08-15] MEDS: MIRTAZAPINE TAB 15 MG TAB PO SCH (21:00)
[2019-08-16] MEDS: OXYCODONE HCL IR 5 MG TAB (IMMEDIATE RELEASE) PO PRN (00:11)
[2019-08-16 05:53] LABS: Hematocrit (blood only) 36.7 % (37-47); Hemoglobin 12.5 g/dL (12.0-16.0); Mean Corpuscular Hemoglobin 34.8 pg (25-34); Mean Corpuscular Hgb Conc 34.1 g/dL (32-36); Mean Corpuscular Volume 102.2 fL (80-100); Mean Platelet Volume 9.2 fL (7.4-10.4); Platelet Count 227 K/uL (130-400); RDW Coefficient of Variation 13.3 % (11.5-14.5); RDW Standard Deviation 49.6 fL (36.4-46.3); Red Blood Count 3.59 M/uL (4.2-5.4); White Blood Count 5.37 K/uL (4.8-10.8)
[2019-08-16 06:10] LABS: INR 1.5 (0.9-1.1); Prothrombin Time 15.1 Seconds (9.0-12.0)
[2019-08-16 06:38] LABS: BUN Creatinine Ratio 12.2 (10-20); Calcium 8.8 mg/dl (8.5-10.1); Creatinine Clr Calc Pharmacy 49.1 ml/min; Est GFR (African American) 92.5; Est GFR (Non-African American) 79.8; Potassium 3.8 mmol/L (3.5-5.1)
--- NOTE | 2019-08-16 08:20 | Gastroenterology Progress Note ---
Date of Service August 16, 2019 Assessment & Plan (1) Abdominal pain: 89 year old female with history of dementia, atrial fibrillation on warfarin w/ INR 1.8, HTN, HLD, CAD, CKD-III who presented from facility for right neck and arm pain - on arrival to the ED she was hypotensive w/ elevated lactic acid and was started on IV fluids and broad spectrum ABX w/ Zosyn. Labs w/ transaminitis, underwent CT imaging w/ concern for CBD stone, biliary dilation at 10 mm She is s/p ERCP w/ sphincterotomy for stone removal and lap cholecystectomy. She developed upper abdominal pain post-prandially over the weekend. Her lipase and LFTs were non-elevated, repeat CT w/o any acute pathology - she denies any abdominal pain this AM. - Diet as tolerated - Analgesia PRN - Antiemetics PRN - If discomfort returns will need repeat LFTs, lipase Thank you for allowing us to participate in the care of this patient. Please call with any acute changes, questions or concerns. Please see addendum below with additional recommendation from my supervising physician. Present on Admission?: Yes Supervising Physician Co-Signing Physician Notes I have performed a history and physical examination of this patient and reviewed the electronic medical record. Specifically, on physical examination there is no abdominal tenderness. I have discussed the case with KATHRINE Butts. The above note reflects my findings, conclusions, and recommendations. NB: There is no evidence of post ERCP pancreatitis. Christian Pierre MD Subjective Pt was seen and evaluated, chart reviewed GI asked to re-eval for abd pain Today she is resting comfortable denies any abd pain No nausea, vomiting Review of Systems Gastrointestinal: no abdominal pain, no nausea, no vomiting, no blood in stools and no melena Physical Exam Constitutional: no acute distress Gastrointestinal (Abdomen): Inspection/Auscultation: normal bowel sounds Percussion/Palpation: abdomen soft; abdomen nontender Skin: no rashes, warm and dry Results & Data Vital Signs (Past 12 Hours) Vital Signs Temp Pulse Resp BP Pulse Ox 08/16/19 07:15 36.5 C 69 16 125/80 95 08/15/19 23:04 36.6 C 72 16 131/77 94
[2019-08-16] MEDS: DICYCLOMINE HCL 10 MG CAP PO SCH ×3 (08:54→21:20)
[2019-08-16] MEDS: ESCITALOPRAM OXALATE 20 MG TAB PO SCH (08:55)
[2019-08-16] MEDS: PANTOprazole 40 MG TAB PO SCH ×2 (08:55→21:20)
[2019-08-16] MEDS: CEFDINIR 300 MG CAP PO SCH ×2 (08:55→21:20)
[2019-08-16] MEDS ORDERED: ALUMINUM/MAGNESIUM SUSP 18 ML, LIDOCAINE HCL VISCOUS 2% 6 ML, BARCODE IDENTIFIER 1 EA PO ONE (13:02)
--- NOTE | 2019-08-16 13:24 | Surgery Progress Note ---
Date of Service August 16, 2019 Assessment & Plan (1) Cholecystitis: Tolerating a regular diet May have developed a hematoma beneath the is causing discomfort. I doubt a hernia at this time. Would just continue with conservative management Subjective Status post laparoscopic cholecystectomy Has discomfort underneath the upper midline incision that she thinks is exacerbated by swallowing Cannot remember if she had a bowel movement Tolerating a regular diet Denies nausea vomiting Physical Exam Gastrointestinal (Abdomen): Percussion/Palpation: + abdomen tender (Beneath upper midline incision with fullness but doubt hernia) and abdomen soft Results & Data Vital Signs (Past 12 Hours) Vital Signs Temp Pulse Resp BP Pulse Ox 08/16/19 07:15 36.5 C 69 16 125/80 95 Laboratory Results 08/16/19 08/16/19 08/16/19 Range/Units 05:11 05:11 05:11 WBC 5.37 (4.8-10.8) K/uL RBC 3.59 L (4.2-5.4) M/uL Hgb 12.5 (12.0-16.0) g/dL Hct 36.7 L (37-47) % MCV 102.2 H (80-100) fL MCH 34.8 H (25-34) pg MCHC 34.1 (32-36) g/dL RDW Std Deviation 49.6 H (36.4-46.3) fL RDW Coeff of Demetrio 13.3 (11.5-14.5) % Plt Count 227 (130-400) K/uL MPV 9.2 (7.4-10.4) fL PT 15.1 H (9.0-12.0) Seconds INR 1.5 H (0.9-1.1) Sodium 142 (136-145) mmol/L Potassium 3.8 D (3.5-5.1) mmol/L Chloride 108 H (98-107) mmol/L Carbon Dioxide 30 (21-32) mmol/L Anion Gap 4.0 (3-11) BUN 8 (7-18) mg/dl Creatinine 0.65 (0.6-1.2) mg/dl Est Cr Clr Drug Dosing 49.1 ml/min Est GFR ( Amer) 92.5 Est GFR (Non-Af Amer) 79.8 BUN/Creatinine Ratio 12.2 (10-20) Glucose 81 (70-99) mg/dl Calcium 8.8 (8.5-10.1) mg/dl
[2019-08-16] MEDS: CALCIUM CARBONATE 500 MG CHEWABLE TAB PO SCH (17:18)
[2019-08-16] MEDS: WARFARIN SOD 2 MG TAB PO SCH (17:18)
[2019-08-16] MEDS: ENOXAPARIN INJ 40 MG/0.4 ML SYR SQ SCH (17:19)
--- NOTE | 2019-08-16 18:53 | Hospitalist Progress Note ---
Date of Service August 16, 2019 Assessment & Plan (1) Abdominal pain: Persistent. Uncertain etiology. Bentyl, Protonix twice daily and Tums did not help. Will try GI cocktail. When the setting of reported diet aphasia will consult speech pathology for assistance. (2) Choledocholithiasis with acute cholecystitis with obstruction: s/p ERCP and lap gonzales doing well aside from pain above. Incision sites look good. JT drain was removed. Rehab limited as patient is bedbound and deconditioned. (3) UTI (urinary tract infection): Cefdinir to complete course (4) Hydronephrosis, left: Stable, no further workup per Urology. (5) Sepsis: Resuscitated. (6) DVT prophylaxis: Warfarin, Lovenox for DVT prophylaxis while INR subtherapeutic Full Code Dispo-likely here through the weekend. Melva Brown DO [facility] Hospitalist Subjective Doing well but she reports persistent epigastric and left lower quadrant pain. She states the Bentyl did not help. She now reports to me she has had odynophagia for the last several weeks. Speech path was consulted Review of Systems Review of Systems: All systems reviewed & are unremarkable except as noted in HPI & below Physical Exam Physical Exam: CONSTITUTIONAL: WNWD, vitals as above, up sitting in chair and eating food. Appears physically improved EYES: normal conjunctivae, no scleral icterus ENT: MMM RESPIRATORY: clear to auscultation bilaterally, no crackles, rales or wheezes, normal respiratory effort CARDIOVASCULAR: regular rate and rhythm, S1 and 2 heard without murmurs, gallops or rubs, no JVD, no peripheral edema GASTROINTESTINAL: normal bowel sounds, soft, +epigastric tenderness, nondi stended, multiple laparoscopic incision sites present. Covered with dry dressings. MUSCULOSKELETAL: Deconditioned, moving arms and legs equally, head is normocephalic and atraumatic SKIN: warm and dry, incisions on abdomen as above. NEUROLOGIC: CN 2-12 grossly intact, normal cognition, normal speech, no gross focal deficits PSYCHIATRIC: alert cooperative and oriented Results & Data Vital Signs (Past 12 Hours) Vital Signs Temp Pulse Resp BP Pulse Ox 08/16/19 15:01 36.7 C 84 16 111/69 94 08/16/19 07:15 36.5 C 69 16 125/80 95 Laboratory Results Short CBC 08/16/19 Range/Units 05:11 WBC 5.37 (4.8-10.8) K/uL Hgb 12.5 (12.0-16.0) g/dL Hct 36.7 L (37-47) % Plt Count 227 (130-400) K/uL BMP 08/16/19 05:11 Sodium 142 Potassium 3.8 D Chloride 108 H Carbon Dioxide 30 BUN 8 Creatinine 0.65 Glucose 81 Calcium 8.8 Medications Administered Current Inpatient Medications Acetaminophen (Tylenol) 650 mg PO Q6H PRN PRN Reason: Pain Stop: 09/13/19 15:27 Last Admin: 08/15/19 15:29 Dose: 650 mg Documented by: Calcium Carbonate (Tums) 1,000 mg PO DAILY@1700 [facility] Stop: 09/13/19 16:59 Last Admin: 08/16/19 17:18 Dose: 1,000 mg Documented by: Cefdinir (Omnicef Cap) 300 mg PO BID [facility] Stop: 08/19/19 09:01 Last Admin: 08/16/19 08:55 Dose: 300 mg Documented by: Dicyclomine HCl (Bentyl) 10 mg PO TID [facility] Stop: 08/17/19 09:01 Last Admin: 08/16/19 13:25 Dose: 10 mg Documented by: Enoxaparin Sodium (Lovenox) 40 mg SQ Q24H [facility] Stop: 09/11/19 17:59 Last Admin: 08/16/19 17:19 Dose: 40 mg Documented by: Escitalopram Oxalate (Lexapro Tab) 20 mg PO QAM [facility] Stop: 09/08/19 08:59 Last Admin: 08/16/19 08:55 Dose: 20 mg Documented by: Gabapentin (Neurontin) 100 mg PO [facility] Stop: 09/07/19 20:59 Last Admin: 08/15/19 20:58 Dose: 100 mg Documented by: Hydromorphone HCl (Dilaudid) 0.5 mg IV Q4H PRN PRN Reason: Severe Pain Stop: 08/27/19 17:29 Magnesium Hydroxide (Milk Of Magnesia) 30 ml PO Q12H PRN PRN Reason: Constipation Stop: 09/07/19 17:38 Mirtazapine (Remeron) 15 mg PO [facility] Stop: 09/07/19 20:59 Last Admin: 08/15/19 21:00 Dose: 15 mg Documented by: Ondansetron HCl (Zofran) 4 mg IV Q6H PRN PRN Reason: Nausea Stop: 09/07/19 17:38 Oxycodone HCl (Roxicodone Immediate Rel) 5 mg PO Q4H PRN PRN Reason: Pain Stop: 08/26/19 16:43 Last Admin: 08/16/19 00:11 Dose: 5 mg Documented by: Pantoprazole Sodium (Protonix) 40 mg PO BID [facility] Stop: 09/13/19 20:59 Last Admin: 08/16/19 08:55 Dose: 40 mg Documented by: Polyethylene Glycol (Miralax Powder Packet) 17 gm PO DAILY PRN PRN Reason: Constipation Stop: 09/07/19 17:38 Warfarin Sodium (Coumadin) 2 mg PO DAILY@1600 [facility] Stop: 09/15/19 15:59 Last Admin: 08/16/19 17:18 Dose: 2 mg Documented by: (1) UTI (urinary tract infection) Hematuria presence: without hematuria Urinary tract infection type: site unspecified Qualified Code(s): N39.0 - Urinary tract infection, site not sp ecified (2) Sepsis Sepsis type: sepsis due to unspecified organism Qualified Code(s): A41.9 - Sepsis, unspecified organism
[2019-08-16] MEDS: GABAPENTIN 100 MG CAP PO SCH (21:20)
[2019-08-16] MEDS: MIRTAZAPINE TAB 15 MG TAB PO SCH (21:20)
[2019-08-16] MEDS: ACETAMINOPHEN 325 MG TAB PO PRN (23:23)
[2019-08-17 05:31] LABS: Hematocrit (blood only) 36.2 % (37-47); Hemoglobin 11.9 g/dL (12.0-16.0); Mean Corpuscular Hemoglobin 33.7 pg (25-34); Mean Corpuscular Hgb Conc 32.9 g/dL (32-36); Mean Corpuscular Volume 102.5 fL (80-100); Mean Platelet Volume 9.4 fL (7.4-10.4); Platelet Count 250 K/uL (130-400); RDW Coefficient of Variation 13.6 % (11.5-14.5); RDW Standard Deviation 50.1 fL (36.4-46.3); Red Blood Count 3.53 M/uL (4.2-5.4); White Blood Count 5.75 K/uL (4.8-10.8)
[2019-08-17 05:50] LABS: INR 1.7 (0.9-1.1); Prothrombin Time 16.4 Seconds (9.0-12.0)
[2019-08-17 05:58] LABS: BUN Creatinine Ratio 15.4 (10-20); Calcium 8.8 mg/dl (8.5-10.1); Creatinine Clr Calc Pharmacy 43.7 ml/min; Est GFR (African American) 85.8; Est GFR (Non-African American) 74.1; Potassium 3.3 mmol/L (3.5-5.1)
[2019-08-17] MEDS: PANTOprazole 40 MG TAB PO SCH ×2 (08:55→19:27)
[2019-08-17] MEDS: ESCITALOPRAM OXALATE 20 MG TAB PO SCH (08:55)
--- NOTE | 2019-08-17 09:32 | Gastroenterology Progress Note ---
Date of Service August 17, 2019 Assessment & Plan (1) Abdominal pain: 89 year old female with history of dementia, atrial fibrillation on warfarin w/ INR 1.8, HTN, HLD, CAD, CKD-III who presented from facility for right neck and arm pain - on arrival to the ED she was hypotensive w/ elevated lactic acid and was started on IV fluids and broad spectrum ABX w/ Zosyn. Labs w/ transaminitis, underwent CT imaging w/ concern for CBD stone, biliary dilation at 10 mm She is s/p ERCP w/ sphincterotomy for stone removal and lap cholecystectomy. She developed upper abdominal pain post-prandially over the weekend. Her lipase and LFTs were non-elevated, repeat CT w/o any acute pathology - she denies any abdominal pain this AM and is tolerating breakfast. She does note some soreness w/ deep breathing - Diet as tolerated - Analgesia PRN - Antiemetics PRN - Perhaps her current symptoms are normal, post-operative pain - No GI contraindication to discharge as she is tolerating diet and there is no evidence of post-ERCP panc Will sign off. Thank you for allowing us to participate in the care of this patient. Please call with any acute changes, questions or concerns. Please see addendum below with additional recommendation from my supervising physician. Supervising Physician Co-Signing Physician Notes I have performed a history and physical examination of this patient and reviewed the electronic medical record. Specifically, on physical examination there is mild epigastric tenderness. I have discussed the case with KATHRINE Butts. The above note reflects my findings, conclusions, and recommendations. Christian Pierre MD Subjective pt was seen and evaluated chart reviewed more awake upright in bed tolerating breakfast - pancake, orange juice, fruit, yogurt denies any painful/difficulty swallowing Does not that she has abdominal pressure w/ deep breathing No post-prandial pain No nausea/vomiting Review of Systems Constitutional: no fever Respiratory: + cough; no dyspnea Cardiovascular: no chest pain Gastrointestinal: + abdominal pain (mild right sided w/ deep breath) Physical Exam Constitutional: no acute distress and not ill appearing Respiratory: normal respiratory effort Cardiovascular: Rate/Rhythm: regular rate Gastrointestinal (Abdomen): Percussion/Palpation: abdomen soft; abdomen nontender Results & Data Vital Signs (Past 12 Hours) Vital Signs Temp Pulse Resp BP Pulse Ox 08/17/19 07:51 36.4 C L 66 16 127/72 95 08/16/19 23:43 37 C 74 16 124/56 L 94
[2019-08-17] MEDS: WARFARIN SOD 2 MG TAB PO SCH (15:52)
--- NOTE | 2019-08-17 17:46 | Hospitalist Progress Note ---
Date of Service August 17, 2019 Assessment & Plan (1) Abdominal pain: Persistent. Uncertain etiology. Bentyl, Protonix twice daily and Tums did not help. GI cocktail unhelpful. Carafate trial overnight, however, at this point she is stable and can be discharged with continued work-up of her abdominal pain as outpatient. She is tolerating food. (2) Choledocholithiasis with acute cholecystitis with obstruction: s/p ERCP and lap gonzales doing well aside from pain above. Incision sites look good. JT drain was removed. Rehab limited as patient is bedbound and deconditioned. (3) UTI (urinary tract infection): Completed course of cefdinir (4) Hydronephrosis, left: Stable, no further workup per Urology. (5) Sepsis: Resuscitated. (6) Atrial fibrillation: cont warfarin at increased 2mg dose until therapeutic INR. Toprol XL per home regimen. Trend INR daily. (7) DVT prophylaxis: Warfarin Full Code Dispo-plan to return to SNF tomorrow. Melva Brown DO [facility] Hospitalist Subjective Patient denied epigastric or abdominal pain to the gastroenterology team this morning however, she reports persistence of this to me now. She is continues to report pain with swallowing. 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 GI cocktail was unhelpful for her and she said it tasted horrible and declines it going forward. We discussed a trial of Carafate and continued use of oxycodone as needed to control pain. She is not vomiting. She is mentating at baseline Review of Systems Review of Systems: All systems reviewed & are unremarkable except as noted in HPI & below Physical Exam Physical Exam: CONSTITUTIONAL: WNWD, vitals as above, up sitting in chair and eating food. Appears physically improved EYES: normal conjunctivae, no scleral icterus ENT: MMM RESPIRATORY: clear to auscultation bilaterally, no crackles, rales or wheezes, normal respiratory effort CARDIOVASCULAR: regular rate and rhythm, S1 and 2 heard without murmurs, gallops or rubs, no JVD, no peripheral edema GASTROINTESTINAL: normal bowel sounds, soft, +epigastric tenderness, nondistended, multiple laparoscopic incision sites present. Covered with dry dressings. MUSCULOSKELETAL: Deconditioned, moving arms and legs equally, head is normocephalic and atraumatic SKIN: warm and dry, incisions on abdomen as above. NEUROLOGIC: CN 2-12 grossly intact, normal cognition, normal speech, no gross focal deficits PSYCHIATRIC: alert cooperative and oriented Results & Data Vital Signs (Past 12 Hours) Vital Signs Temp Pulse Resp BP Pulse Ox 08/17/19 15:03 36.6 C 80 16 103/65 95 08/17/19 07:51 36.4 C L 66 16 127/72 95 Laboratory Results Short CBC 08/17/19 Range/Units 05:09 WBC 5.75 (4.8-10.8) K/uL Hgb 11.9 L (12.0-16.0) g/dL Hct 36.2 L (37-47) % Plt Count 250 (130-400) K/uL BMP 08/17/19 05:09 Sodium 142 Potassium 3.3 L Chloride 107 Carbon Dioxide 30 BUN 11 Creatinine 0.73 Glucose 94 Calcium 8.8 Medications Administered Current Inpatient Medications Acetaminophen (Tylenol) 650 mg PO Q6H PRN PRN Reason: Pain Stop: 09/13/19 15:27 Last Admin: 08/16/19 23:23 Dose: 650 mg Documented by: Calcium Carbonate (Tums) 1,000 mg PO DAILY@1700 [facility] Stop: 09/13/19 16:59 Last Admin: 08/16/19 17:18 Dose: 1,000 mg Documented by: Enoxaparin Sodium (Lovenox) 40 mg SQ Q24H [facility] Stop: 09/11/19 17:59 Last Admin: 08/16/19 17:19 Dose: 40 mg Documented by: Escitalopram Oxalate (Lexapro Tab) 20 mg PO QAM [facility] Stop: 09/08/19 08:59 Last Admin: 08/17/19 08:55 Dose: 20 mg Documented by: Gabapentin (Neurontin) 100 mg PO HS [facility] Stop: 09/07/19 20:59 Last Admin: 08/16/19 21:20 Dose: 100 mg Documented by: Hydromorphone HCl (Dilaudid) 0.5 mg IV Q4H PRN PRN Reason: Severe Pain Stop: 08/27/19 17:29 Magnesium Hydroxide (Milk Of Magnesia) 30 ml PO Q12H PRN PRN Reason: Constipation Stop: 09/07/19 17:38 Mirtazapine (Remeron) 15 mg PO HS [facility] Stop: 09/07/19 20:59 Last Admin: 08/16/19 21:20 Dose: 15 mg Documented by: Ondansetron HCl (Zofran) 4 mg IV Q6H PRN PRN Reason: Nausea Stop: 09/07/19 17:38 Oxycodone HCl (Roxicodone Immediate Rel) 5 mg PO Q4H PRN PRN Reason: Pain Stop: 08/26/19 16:43 Last Admin: 08/16/19 00:11 Dose: 5 mg Documented by: Pantoprazole Sodium (Protonix) 40 mg PO BID [facility] Stop: 09/13/19 20:59 Last Admin: 08/17/19 08:55 Dose: 40 mg Documented by: Polyethylene Glycol (Miralax Powder Packet) 17 gm PO DAILY PRN PRN Reason: Constipation Stop: 09/07/19 17:38 Sucralfate (Carafate) 1 gm PO QID [facility] Stop: 09/16/19 20:59 Warfarin Sodium (Coumadin) 2 mg PO DAILY@1600 [facility] Stop: 09/15/19 15:59 Last Admin: 08/17/19 15:52 Dose: 2 mg Documented by: (1) UTI (urinary tract infection) Hematuria presence: without hematuria Urinary tract infection type: site unspecified Qualified Code(s): N39.0 - Urinary tract infection, site not specified (2) Atrial fibrillation Atrial fibrillation type: paroxysmal Qualified Code(s): I48.0 - Paroxysmal atrial fibrillation (3) Sepsis Sepsis type: sepsis due to unspecified organism Qualified Code(s): A41.9 - Sepsis, unspecified organism
[2019-08-17] MEDS: ENOXAPARIN INJ 40 MG/0.4 ML SYR SQ SCH (18:17)
[2019-08-17] MEDS: POTASSIUM CHLORIDE 10 MEQ TABCR PO SCH (18:17)
[2019-08-17] MEDS: CALCIUM CARBONATE 500 MG CHEWABLE TAB PO SCH (18:17)
[2019-08-17] MEDS: ACETAMINOPHEN 325 MG TAB PO PRN (19:26)
[2019-08-17] MEDS: OXYCODONE HCL IR 5 MG TAB (IMMEDIATE RELEASE) PO PRN (19:26)
[2019-08-17] MEDS: GABAPENTIN 100 MG CAP PO SCH (19:27)
[2019-08-17] MEDS: SUCRALFATE 1 GM/10 ML UDC PO SCH (19:27)
[2019-08-17] MEDS: MIRTAZAPINE TAB 15 MG TAB PO SCH (19:27)
[2019-08-18 06:48] LABS: INR 1.9 (0.9-1.1); Prothrombin Time 18.2 Seconds (9.0-12.0)
--- NOTE | 2019-08-18 07:38 | Surgery Progress Note ---
Date of Service August 18, 2019 Assessment & Plan (1) Cholecystitis: Postoperative day #8 status post laparoscopic cholecystectomy Doing well from surgical standpoint Suspect hematoma will resolve No evidence of hernia Subjective Postoperative day #8 status post laparoscopic cholecystectomy Patient sleepy this morning Did not report abdominal pain Tolerating regular diet No nausea or vomiting Physical Exam Gastrointestinal (Abdomen): Inspection/Auscultation: + abdominal surgical incision (Most likely has small hematoma beneath upper midline incision); abdomen not distended Percussion/Palpation: abdomen soft; abdomen nontender Results & Data Vital Signs (Past 12 Hours) Vital Signs Temp Pulse Resp BP Pulse Ox 08/18/19 07:12 36.3 C L 74 20 117/73 94 08/17/19 23:45 36.5 C 74 16 102/64 94
[2019-08-18] MEDS: SUCRALFATE 1 GM/10 ML UDC PO SCH ×2 (08:01→13:35)
[2019-08-18] MEDS: ESCITALOPRAM OXALATE 20 MG TAB PO SCH (08:02)
[2019-08-18] MEDS: POTASSIUM CHLORIDE 10 MEQ TABCR PO SCH (08:02)
[2019-08-18] MEDS: PANTOprazole 40 MG TAB PO SCH (08:02)
[2019-08-18] MEDS ORDERED: METOPROLOL SUCC 25MG EXT REL TAB PO SCH (09:00)
[2019-08-18] MEDS ORDERED: Nursing to Pharmacy Communication ONE (09:17)
--- NOTE | 2019-08-18 11:31 | Discharge Summary ---
Date of Service August 18, 2019 Admission HPI Per Admitting Provider Patient with abnormal LFT's, cholecystitis. Admission Exam Per Admitting Provider Constitutional: Thin, petite, elderly female, vitals as above, NAD, sitting up in bed, pleasant, conversing easily Head: Normocephalic, Atraumatic Eyes: PERRL, conjunctivae normal, anicteric sclerae ENMT: external ear and nose normal, oropharynx with dry mucous membrane Neck: trachea midline, no thyromegaly normal visual inspection Respiratory: normal respiratory effort, lungs clear to auscultation, no wheeze, rales, rhonchi. Normal insp/exp effort, no accessory muscle use Cardiovascular: RRR, normal S1-S2 no edema Vessels: no JVD or carotid bruit Chest: normal inspection of chest Abdomen: normal bowel sounds, soft, mild tenderness to RUQ, no hepatosplenomegaly Musculoskeletal: no cyanosis or clubbing, extremities motor strength 5/5 Skin: no rashes, warm and dry mild turgor Neurologic: PERRL, EOMI, accommodation nl, no face palsy, no dysarthria CN's II-XI intact bilaterally and moves all extremities Psychiatric: A+O to self and family, place, but not time, euthymic affect Lymphatic: no cervical or axillary lymphadenopathy : deferred Principal Diagnosis Metabolic encephalopathy-resolved Postoperative abdominal pain, possibly secondary to small hematoma Choledocholithiasis with acute cholecystitis with obstruction status post ERCP and laparoscopic cholecystectomy on 08/10/19 UTI Left hydronephrosis Chronic atrial fibrillation on coumadin Discharge Data Allergies Allergy/AdvReac Type Severity Reaction Status Date / Time omeprazole Allergy Unknown distal Verified 02/24/19 11:13 edema-none with pantoprozole Consultations 08/08/19 14:16 ED Decision to Admit Stat 08/08/19 16:27 Consult Gastroenterology Routine 08/08/19 17:39 Consult Case Management - Discharge Planning Routine Consult General Surgery Routine Consult Urology Routine Procedures Performed Operation Date: 08/10/19 07:00 Actual Procedures p Endoscopic Retrograde Cholangiopancreatography, Dilation, Extraction of Stone(Not Applicable) - Christian Pierre MD s Laparoscopic Cholecystectomy(Not Applicable) - Ross Ayala MD Ordered Studies 08/08/19 12:20 CT head/brain wo con Stat 08/08/19 14:59 CT abd pelvis IV con only Stat US abdomen limited Stat 08/10/19 12:00 FL ERCP biliary ductal Routine 08/13/19 17:00 CT abd pelvis wo con Urgent Hospital Course (1) Abdominal pain: Post operative epigastric pain is persistent despite multiple efforts at alleviating this including scheduled APAP, tramadol, oxycodone, dilaudid. Bentyl, Protonix twice daily and Tums also did not help. GI cocktail unhelpful. Carafate trial was not successful in alleviating her pain. Uncertain etiology but thought to possibly be related to a post-operative hematoma that is expected to resolve. She is tolerating food, however and has remained hemodynamically stable and sleeping regularly. Feel OK to discharge back to SNF as she is stable and this is expected to improve as she continues to heal from her surgery. (2) Choledocholithiasis with acute cholecystitis with obstruction: s/p ERCP and lap gonzales on 08/10 doing well aside from pain above. Incision sites look good. JT drain was removed. Rehab limited as patient is bedbound and deconditioned and this is close to her self-reported baseline. (3) UTI (urinary tract infection): Completed course of cefdinir (4) Hydronephrosis, left: Stable, no further workup per Urology. (5) Sepsis: Resuscitated. (6) Atrial fibrillation: cont warfarin at increased 2mg dose until therapeutic INR. Toprol XL per home regimen. At time of discharge a face to face examination was performed revealing a hemodynamically stable and afebrile patient in no acute distress. She was mentating at baseline and tolerating PO. She was appearing to also be ambulating at her baseline as she is weak and deconditioned with little ability to ambulate independently at baseline. Physical exam revealed healing incision sites on her abdomen with no TTP. Lungs were clear to auscultation bilaterally and heart sounds were regular without murmurs. She was euvolemic at time of discharge. She was discharged in stable condition with close surgical and PCP follow-up recommended in one week. Total Time Total Time Spent Total Time Spent (In Minutes): 60 Total Time Includes: Examination of the Patient, Discharge Planning, Medication Reconciliation and Communication With Other Providers Discharge Plan Discharge Items Patient Disposition: Personal Halfway Reason For Visit: UTI ELEVATED LFTS Discharge Diagnosis: Metabolic encephalopathy-resolved Postoperative abdominal pain, possibly secondary to small hematoma Choledocholithiasis with acute cholecystitis with obstruction status post ERCP and laparoscopic cholecystectomy on 08/10/19 UTI Left hydronephrosis Chronic atrial fibrillation on coumadin Condition on Discharge: Good Health Concerns: missed dose of Fosamax this week continue to monitor her abdominal pain for improvement as this is expected with time. Activity: Per Instructions section Non-emergency contact: Primary Care Provider and Surgeon Call non-emergency contact if: you have any medication questions, your symptoms worsen, your pain is not controlled, your pain is worsening, your pain is unusual for you, your pain is concerning for you and you have a fever Follow-up/Referrals: MAURICE ESPINOSA [Primary Care Provider] - Diet: Regular Addtl Attending Provider Instructions: Please take all medications as instructed on discharge list below. Please follow-up with general surgery as instructed for postoperative wound checks. Please follow-up with your primary care provider within one week of discharge. This is important to ensure you are doing well and your abdominal pain is improving, but also to continue investigating your chronically low potassium. You have been placed on daily potassium supplementation at discharge. This should be monitored. It was a pleasure taking care of you! Please call if you have any questions or problems. You can reach a [facility] hospitalist on duty at [facility] 24 hours a day by calling [phone]. Take care of yourself. Melva Brown DO [facility] Hospitalist Addtl Collection Agent Provider Instructions: Post-Surgical ~Discharge Instructions Activity Recommendations: - lifting limitation: (10 pounds for 2 weeks), - exercise/sex/sports limit: (nonstrenuous for 2 weeks), - driving or machine use limit: (none for 1 week), - Shower/bathe limit: (may shower) Diet: - Resume previous diet SPECIAL CARE INSTRUCTIONS: - May shower. Let water run over area and pat dry. - Leave steri strips on for one week. - Call the surgeon's office with any questions or concerns - - (ex. temperature higher than 101 degrees F, excessive bleeding or pain). MEDICATIONS: - Resume previous medications unless instructed otherwise by your surgeon. - Tramadol 50 mg every 4 hours as needed for pain FOLLOW UP VISIT: - If not already scheduled, please call the office to schedule a two week follow-up appointment. Office number Pending Studies at Discharge: No Stand-Alone Forms: My [facility] Skilled Items Patient informed of condition?: Yes DNR: No Discharge Level of Care: Skilled Communicable Disease: No Discharge Prognosis: Stable Lines: None Urinary Catheter: No Medications and DC Order Prescriptions: New potassium chloride [Klor-Con M10] 10 mEq Tablet,Er Particles/Crystals 10 meq PO DAILY Qty: 30 RF: 1 Continued pantoprazole [Protonix] 40 mg Tablet,Delayed Release (Dr/Ec) 40 mg PO QAM Qty: 0 RF: 0 mirtazapine 15 mg Tablet 15 mg PO HS Qty: 0 RF: 0 acetaminophen 325 mg Tablet 650 mg PO Q4H PRN (Reason: Pain) Qty: 0 RF: 0 gabapentin 100 mg Capsule 100 mg PO HS Qty: 0 RF: 0 ferrous sulfate 325 mg (65 mg iron) Tablet 325 mg PO BID 30 Days Qty: 60 RF: 3 warfarin 2 mg tablet 2 mg PO 2XWK RF: 0 warfarin 1 mg tablet 1 mg PO 5XWK RF: 0 metoprolol succinate 25 mg tablet extended release 24 hr 12.5 mg PO DAILY RF: 0 alendronate 70 mg tablet 70 mg PO WK RF: 0 escitalopram oxalate 20 mg tablet 20 mg PO QAM RF: 0 Discharge Orders: Discharge Order (Routine); Ordered 08/18/19 Ordered By: Melva Brown Admission Data Admit Date/Time: 08/08/19 15:13 Attending Provider: Melva Brown Admit Provider: Ricki Soliz Primary Care Provider: MAURICE ESPINOSA Other Providers: Rochelle Iglesias ; Kelsey Salgado ; Roxy Almaguer ; [address] ; [facility] Other Interventions: Discharge Summary Assessment (RN) Last Done: 08/18/19 11:17 DC Date/Time DO NOT enter until pt leaves facility: 08/18/19 13:57
[2019-08-19] MEDS ORDERED: ALENDRONATE SODIUM 70 MG TAB PO SCH (06:30)
== END 2019-08-18 13:57 | disposition home or self-care (01) | DRG 853 ==
LOC: ED 11:57 → SUATTDRO 15:13 → 2E 15:13 → 3W 08-09 14:59

== ENCOUNTER 2019-10-02 19:21 | Inpatient (IN) ==
[2019-10-02] MEDS ORDERED: SODIUM CHLORIDE 0.9% 1000ML 1,000 ML IV ONE (19:29)
[2019-10-02] MEDS ORDERED: CEFEPIME 2,000 MG/20 ML VIAL IV STA (19:31)
[2019-10-02 20:02] LABS: Appearance Urine Turbid (Clear); Bacteria Urine Automated 3+ (Negative); Bilirubin Urine Negative (Negative); Blood Urine 2+ (Negative); Color Urine Dark Yellow; Glucose Urine UA Negative (Negative); Ketones Urine Trace (Negative); Leukocyte Esterase Urine 3+ (Negative); Nitrite Urine Negative (Negative); Protein Urine 2+ (Negative); Specific Gravity Urine 1.014 (1.000-1.030); Urobilinogen Urine Negative (Negative); WBC Urine Automated >30 /hpf (0-5)
--- NOTE | 2019-10-02 20:09 | XRay Report ---
XR chest 1V portable CLINICAL HISTORY: Sepsis dyspnea COMPARISON STUDY: 08/08/2019 FINDINGS: The bones soft tissues and hemidiaphragms are normal. The cardiomediastinal silhouette is n ormal. The lungs are clear. The pulmonary vasculature is normal. IMPRESSION: Negative chest. The above report was generated using voice recognition software. It may contain grammatical, syntax or spelling errors. Electronically signed by: Ross Cabral M.D. 10/02/2019 8:07 PM
[2019-10-02 20:11] LABS: RBC Urine Automated 0-4 /hpf (0-4)
--- NOTE | 2019-10-02 20:29 | CT Scan Report ---
CT head/brain wo con CT DOSE: 638.56 mGycm HISTORY: Mental status change. confusion TECHNIQUE: Multiaxial CT images of the head were performed without the use of intravenous contrast. A dose lowering technique was utilized adhering to the principles of ALARA. Comparison: None. Findings: The paranasal sinuses and mastoid air cells are clear. Findings of atrophy and chronic smal l vessel change. Mild compensatory ventricular prominence. Density characteristics are unchanged comp ared to the prior study. Small old left cerebellar infarct. No midline shift. Impression: No acute intracranial abnormality. Chronic and age-related change. The above report was generated using voice recognition software. It may contain grammatical, syntax or spelling errors. Electronically signed by: Ross Cabral M.D. 10/02/2019 8:28 PM
--- NOTE | 2019-10-02 20:49 | Emergency Department Note ---
Entered by Geetha Perales acting as a scribe for Souleymane Kim MD History of Present Illness General Chief complaint: Lethargic Stated complaint: LETHARGIC Time Seen by Provider: 10/02/19 19:23 Source: patient and other ([facility] staff, nurses) Mode of arrival: EMS History of Present Illness Onset (ago): day(s) 3 Location: head (lethargy ) Pain Consistency: + constant Associated symptoms: + denies other symptoms (urinary sx, abdominal pain ), + weakness and + other (lower BP than normal, foul smelling urine ); no shortness of breath The patient is an 89 year old female with a history of NSTEMI, CAD, sepsis, HTN, hypotension, hypothyroidism, and UTI who presents to the Emergency Room with complaints of lethargy. The patient is a resident at [facility] and staff reports that she has been lethargic for the past 2-3 days associated with low blood pressure (reported 100/50). She was in the hospital last month and diagnosed with metabolic encephalopathy and a UTI. The patient is unsure why she is here and states that she is not in any pain but does admit to some weakness. She denies shortness of breath and urinary sx. The patient offers no additional concerns at this time. HPI is limited due to the patient's mental state. Home Medications Home Medications Medication Instructions Recorded Confirmed Type pantoprazole [Protonix] 40 mg PO QAM #0 12/27/15 10/02/19 History acetaminophen 650 mg PO Q4H PRN #0 01/08/17 10/02/19 History mirtazapine 15 mg PO HS #0 tab 01/08/17 10/02/19 History gabapentin 100 mg PO HS #0 03/10/18 10/02/19 History ferrous sulfate 325 mg PO BID 30 Days #60 tab 04/08/18 10/02/19 History alendronate 70 mg PO WK 02/24/19 10/02/19 History escitalopram oxalate 20 mg PO QAM 02/24/19 10/02/19 History metoprolol succinate 12.5 mg PO DAILY 08/08/19 10/02/19 History warfarin 1 mg PO UD 08/08/19 10/02/19 History warfarin 2 mg PO UD 10/06/19 11/30/19 History potassium chloride [Klor-Con M10] 10 meq PO DAILY #30 tab 08/18/19 10/02/19 Rx Allergies Allergy/AdvReac Type Severity Reaction Status Date / Time omeprazole Allergy Unknown distal Verified 10/02/19 20:42 edema-none with pantoprozole Past Med/Surg History Medical History Anticoagulated on Coumadin (Chronic) Anxiety (Chronic) Atrial fibrillation Atrial fibrillation (Chronic) CAD (coronary artery disease) (Chronic) Chronic pain (Chronic) Depression (Deleted) Depression (Chronic) GERD (gastroesophageal reflux disease) History of DVT (deep vein thrombosis) History of DVT (deep vein thrombosis) (Chronic) HLD (hyperlipidemia) HTN (hypertension) HTN (hypertension) (Chronic) Hypothyroidism (Chronic) Migraines Nephrolithiasis (Chronic) NSTEMI (non-ST elevated myocardial infarction) (Resolved) OAB (overactive bladder) (Chronic) Osteoarthritis (Chronic) Sciatica (Chronic) UTI (urinary tract infection) Surgical History H/O lithotripsy (Chronic) 05/29/18. LMA #4. H/O total hip arthroplasty (Chronic) History of appendectomy (Chronic) History of cataract surgery (Chronic) History of lumbar surgery (Chronic) History of total hip arthroplasty (Chronic) LEFT History of total knee replacement (Chronic) RIGHT Family History Mother , 70 Pancreatic cancer Father Coronary heart disease Social History Preferred Language: Uzbek Communication Ability: Effective Associate Programmer Required: No Beliefs That Will Affect Care: None marital status: / Current Living Situation: Personal Care Facility Current Living Situation Comment: [facility] Feels Safe at Home: Yes Smoking Status: Never smoker Hx Alcohol Use: No Hx Substance Use: No Review of Systems See HPI for pertinent positives & negatives. ROS is limited due to the patient's mental state. Physical Exam Vital Signs Vital Signs - 24 hr 10/02/19 19:13 10/02/19 19:32 Temperature 36.7 C Temperature Source Oral Pulse Rate 71 71 Respiratory Rate 16 Respiratory Effort / Characteristics Non-Labored Spontaneous Respiratory Depth Normal Blood Pressure 99/59 L Blood Pressure Mean 72 Blood Pressure Position Lying Pulse Oximetry 96 96 Oxygen Delivery Method Room Air Room Air Sepsis Recent Fever Within 48 Hours No Sepsis New/Unexplained Change in Mental Status No Sepsis Action Taken by Nursing No Action Required GENERAL: Patient is in no acute distress. Strong smell of urine in the room. HEENT: No acute trauma, normocephalic atraumatic, mucous membranes moist, no nasal congestion, no scleral icterus. NECK: No stridor, no adenopathy, no meningismus, trachea is midline. LUNGS: Clear to auscultation bilaterally, no wheeze, no rhonchi, breath sounds equal. HEART: Without murmurs gallops or rubs, regular rate and rhythm. ABDOMEN: Soft, nontender, bowel sounds positive, no hernias, no peritonitis. EXTREMITIES: No cyanosis or edema, full range of motion of all the joints without pain or difficulty, no signs for acute trauma. NEUROLOGIC: Somewhat somnolent, slightly confused but answers simple questions, no focal neuro deficits. SKIN: No rash, no jaundice, no diaphoresis. Course Course 1924: Past medical records reviewed. The patient was evaluated in room A02. A complete history and physical exam was performed. 2130: I spoke to Dr. Mckenzie, [facility] Hospitalist who accepts the patient for admission. 2134: The patient's daugther is here now. I updated everyone on the plan of care. The patient verbally expressed understanding and agreement of the treatment plan. The patient will be evaluated for further treatment. Administered Medications Magnesium Sulfate/Dextrose (Magnesium Sulfate / D5w) 1 gm in 100 mls @ 100 mls/hr IV ONE ONE Stop: 10/02/19 22:24 Last Admin: 10/02/19 21:38 Dose: 100 mls/hr Documented by: [id number] Sodium Chloride (Nss 1000ml) 500 mls @ 999 mls/hr IV .Q31M ONE Stop: 10/02/19 22:05 Last Admin: 10/02/19 21:40 Dose: 999 mls/hr Documented by: [id number] Discontinued Medications Sodium Chloride (Nss 1000ml) 1,000 mls @ 999 mls/hr IV .Q1H1M ONE Stop: 10/02/19 20:29 Last Admin: 10/02/19 20:58 Dose: 999 mls/hr Documented by: [id number] Cefepime HCl (Maxipime) 2,000 mg in 20 mls @ 5 mls/min IV NOW STA; Protocol Stop: 10/02/19 19:34 Last Admin: 10/02/19 21:03 Dose: 5 mls/min Documented by: [id number] Critical Care Time Critical Care Time: Yes Total Critical Care Time: 36 I have personally spent 36 minutes of critical care time in the direct managem ent of this patient. This includes bedside care, interpretation of diagnostic studies, and testing, discussion with consultants, patient, and family members, and other required patient management activities. This 36 minutes is in excess of all separately billable procedures. Medical Decision Making Differential Diagnosis Differential diagnosis includes but is not limited to dehydration, stroke, PNA, intracranial bleeding, UTI, sepsis, renal or liver failure, cardiac ischemia or injury. Medical Records Attestation: I reviewed the patient's medical records. Home Medications Current Medication List: was personally reviewed by me Laboratory Data Attestation: I reviewed the patient's lab results. Result diagrams: 10/02/19 20:45 10/02/19 20:45 Lab Results 10/02/19 10/02/19 10/02/19 Range/Units 19:40 19:52 20:45 WBC Cancelled RBC Cancelled Hgb Cancelled Hct Cancelled MCV Cancelled MCH Cancelled MCHC Cancelled RDW Std Deviation Cancelled RDW Coeff of Demetrio Cancelled Plt Count Cancelled MPV Cancelled Immature Gran % (Auto) Cancelled Neut % (Auto) Cancelled Lymph % (Auto) Cancelled Gates % (Auto) Cancelled Eos % (Auto) Cancelled Baso % (Auto) Cancelled Immature Gran # (Auto) Cancelled Neut # (Auto) Cancelled Lymph # (Auto) Cancelled Gates # (Auto) Cancelled Eos # (Auto) Cancelled Baso # (Auto) Cancelled Absolute Nucleated RBC Cancelled Nucleated RBC % (auto) Cancelled Neutrophils % (Manual) Cancelled Band Neutrophils % Cancelled Lymphocytes % (Manual) Cancelled Prolymphocyte % Cancelled Reactive Lymphs % (Man) Cancelled Monocytes % (Manual) Cancelled Eosinophils % (Manual) Cancelled Basophils % (Manual) Cancelled Metamyelocytes % (Man) Cancelled Myelocytes % (Man) Cancelled Promyelocytes % (Man) Cancelled Blast Cells % (Manual) Cancelled Plasma Cell % (Manual) Cancelled Other Cells % Cancelled Nucleated RBC % Cancelled Neutrophils # (Manual) Cancelled Band Neutrophils # Cancelled Total Absolute Neuts Cancelled Lymphocytes # (Manual) Cancelled Prolymphocyte # Cancelled Reactive Lymphs # Cancelled Total Abs Lymphocytes Cancelled Monocytes # (Manual) Cancelled Eosinophils # (Manual) Cancelled Basophils # (Manual) Cancelled Metamyelocytes # (Man) Cancelled Myelocytes # (Manual) Cancelled Promyelocytes # (Man) Cancelled Blast Cells # (Man) Cancelled Plasma Cell # (Manual) Cancelled Other Cells # Cancelled Nucleated RBCs # (Man) Cancelled Hypersegmented Neuts Cancelled Hyposegmented Neuts Cancelled Hypogranular Neuts Cancelled Large Granular Lymphs Cancelled # Lrg Granular Lymphs Cancelled Hairy Cells Cancelled Smudge Cells Cancelled Toxic Granulation Cancelled Toxic Vacuolation Cancelled Dohle Bodies Cancelled Mira Rods Cancelled Platelet Estimate Cancelled Hypogranular Platelets Cancelled Clumped Platelets Cancelled Giant Platelets Cancelled Platelet Satelliting Cancelled RBC Morphology Cancelled Polychromasia Cancelled Hypochromasia Cancelled Poikilocytosis Cancelled Basophilic Stippling Cancelled Anisocytosis Cancelled Microcytosis Cancelled Macrocytosis Cancelled Spherocytes Cancelled Pappenheimer Bodies Cancelled Sickle Cells Cancelled Target Cells Cancelled Tear Drop Cells Cancelled Ovalocytes Cancelled Stomatocytes Cancelled [place] Bodies Cancelled Echinocytes Cancelled Acanthocytes (Spur) Cancelled Rouleaux Cancelled RBC Agglutinates Cancelled Schistocytes Cancelled RBC Morph Comment Cancelled Sezary Cell Cancelled PT 15.2 H (9.0-12.0) Seconds INR 1.5 H (0.9-1.1) APTT 31.2 H (21.0-31.0) Seconds PTT Ratio 1.2 Sodium (136-145) mmol/L Potassium (3.5-5.1) mmol/L Chloride (98-107) mmol/L Carbon Dioxide (21-32) mmol/L Anion Gap (3-11) BUN (7-18) mg/dl Creatinine (0.6-1.2) mg/dl Est Cr Clr Drug Dosing ml/min Est GFR ( Amer) Est GFR (Non-Af Amer) BUN/Creatinine Ratio (10-20) Glucose (70-99) mg/dl Lactate (0.4-2.0) mmol/L Calcium (8.5-10.1) mg/dl Magnesium (1.8-2.4) mg/dl Total Bilirubin (0.2-1) mg/dl AST (15-37) U/L ALT (12-78) U/L Alkaline Phosphatase (45-117) U/L Ammonia (11-32) umol/L Total Protein (6.4-8.2) gm/dl Albumin (3.4-5.0) gm/dl Globulin (2.5-4.0) gm/dl Albumin/Globulin Ratio (0.9-2) Procalcitonin (0-0.5) ng/ml Urine Color Dark Yellow Urine Appearance Turbid A (Clear) Urine pH 6.0 (4.5-7.5) Ur Specific [place] 1.014 (1.000-1.030) Urine Protein 2+ H (Negative) Urine Glucose (UA) Negative (Negative) Urine Ketones Trace H (Negative) Urine Blood 2+ H (Negative) Urine Nitrite Negative (Negative) Urine Bilirubin Negative (Negative) Urine Urobilinogen Negative (Negative) Ur Leukocyte Esterase 3+ H (Negative) Urine WBC (Auto) >30 H (0-5) /hpf Urine RBC (Auto) 0-4 (0-4) /hpf U Hyaline Cast (Auto) 1-5 (0-5) /lpf U Epithel Cells (Auto) 5-10 H (0-5) /lpf Urine Bacteria (Auto) 3+ H (Negative) Urine Yeast Not Reportable 10/02/19 10/02/19 10/02/19 Range/Units 20:45 20:45 20:45 WBC RBC Hgb Hct MCV MCH MCHC RDW Std Deviation RDW Coeff of Demetrio Plt Count MPV Immature Gran % (Auto) Neut % (Auto) Lymph % (Auto) Gates % (Auto) Eos % (Auto) Baso % (Auto) Immature Gran # (Auto) Neut # (Auto) Lymph # (Auto) Gates # (Auto) Eos # (Auto) Baso # (Auto) Absolute Nucleated RBC Nucleated RBC % (auto) Neutrophils % (Manual) Band Neutrophils % Lymphocytes % (Manual) Prolymphocyte % Reactive Lymphs % (Man) Monocytes % (Manual) Eosinophils % (Manual) Basophils % (Manual) Metamyelocytes % (Man) Myelocytes % (Man) Promyelocytes % (Man) Blast Cells % (Manual) Plasma Cell % (Manual) Other Cells % Nucleated RBC % Neutrophils # (Manual) Band Neutrophils # Total Absolute Neuts Lymphocytes # (Manual) Prolymphocyte # Reactive Lymphs # Total Abs Lymphocytes Monocytes # (Manual) Eosinophils # (Manual) Basophils # (Manual) Metamyelocytes # (Man) Myelocytes # (Manual) Promyelocytes # (Man) Blast Cells # (Man) Plasma Cell # (Manual) Other Cells # Nucleated RBCs # (Man) Hypersegmented Neuts Hyposegmented Neuts Hypogranular Neuts Large Granular Lymphs # Lrg Granular Lymphs Hairy Cells Smudge Cells Toxic Granulation Toxic Vacuolation Dohle Bodies [place]ira Rods Platelet Estimate Hypogranular Platelets Clumped Platelets Giant Platelets Platelet Satelliting RBC Morphology Polychromasia Hypochromasia Poikilocytosis Basophilic Stippling Anisocytosis Microcytosis Macrocytosis Spherocytes Pappenheimer Bodies Sickle Cells Target Cells Tear Drop Cells Ovalocytes Stomatocytes [place] Bodies Echinocytes Acanthocytes (Spur) Rouleaux RBC Agglutinates Schistocytes RBC Morph Comment Sezary Cell PT (9.0-12.0) Seconds INR (0.9-1.1) APTT (21.0-31.0) Seconds PTT Ratio Sodium 133 L (136-145) mmol/L Potassium 4.0 (3.5-5.1) mmol/L Chloride 101 (98-107) mmol/L Carbon Dioxide 24 (21-32) mmol/L Anion Gap 8.0 (3-11) BUN 29 H (7-18) mg/dl Creatinine 1.51 H (0.6-1.2) mg/dl Est Cr Clr Drug Dosing 20.6 ml/min Est GFR ( Amer) 35.6 Est GFR (Non-Af Amer) 30.8 BUN/Creatinine Ratio 19.1 (10-20) Glucose 122 H (70-99) mg/dl Lactate 2.6 H* (0.4-2.0) mmol/L Calcium 8.5 (8.5-10.1) mg/dl Magnesium 1.6 L (1.8-2.4) mg/dl Total Bilirubin 1.0 (0.2-1) mg/dl AST 33 (15-37) U/L ALT 17 (12-78) U/L Alkaline Phosphatase 90 (45-117) U/L Ammonia < 10.0 L (11-32) umol/L Total Protein 6.7 (6.4-8.2) gm/dl Albumin 2.6 L (3.4-5.0) gm/dl Globulin 4.1 H (2.5-4.0) gm/dl Albumin/Globulin Ratio 0.6 L (0.9-2) Procalcitonin (0-0.5) ng/ml Urine Color Urine Appearance (Clear) Urine pH (4.5-7.5) Ur Specific [place] (1.000-1.030) Urine Protein (Negative) Urine Glucose (UA) (Negative) Urine Ketones (Negative) Urine Blood (Negative) Urine Nitrite (Negative) Urine Bilirubin (Negative) Urine Urobilinogen (Negative) Ur Leukocyte Esterase (Negative) Urine WBC (Auto) (0-5) /hpf Urine RBC (Auto) (0-4) /hpf U Hyaline Cast (Auto) (0-5) /lpf U Epithel Cells (Auto) (0-5) /lpf Urine Bacteria (Auto) (Negative) Urine Yeast 10/02/19 10/02/19 Range/Units 20:45 20:45 WBC 16.21 H RBC 3.88 L Hgb 13.5 Hct 39.8 MCV 102.6 H MCH 34.8 H MCHC 33.9 RDW Std Deviation 52.2 H RDW Coeff of Demetrio 13.9 Plt Count 167 MPV 9.4 Immature Gran % (Auto) 0.4 Neut % (Auto) 87.0 Lymph % (Auto) 5.3 Gates % (Auto) 7.2 Eos % (Auto) 0.0 Baso % (Auto) 0.1 Immature Gran # (Auto) 0.07 H Neut # (Auto) 14.10 H Lymph # (Auto) 0.86 L [place] # (Auto) 1.17 H Eos # (Auto) 0.00 Baso # (Auto) 0.01 Absolute Nucleated RBC Nucleated RBC % (auto) Neutrophils % (Manual) Band Neutrophils % Lymphocytes % (Manual) Prolymphocyte % Reactive Lymphs % (Man) Monocytes % (Manual) Eosinophils % (Manual) Basophils % (Manual) Metamyelocytes % (Man) Myelocytes % (Man) Promyelocytes % (Man) Blast Cells % (Manual) Plasma Cell % (Manual) Other Cells % Nucleated RBC % Neutrophils # (Manual) Band Neutrophils # Total Absolute Neuts Lymphocytes # (Manual) Prolymphocyte # Reactive Lymphs # Total Abs Lymphocytes Monocytes # (Manual) Eosinophils # (Manual) Basophils # (Manual) Metamyelocytes # (Man) Myelocytes # (Manual) Promyelocytes # (Man) Blast Cells # (Man) Plasma Cell # (Manual) Other Cells # Nucleated RBCs # (Man) Hypersegmented Neuts Hyposegmented Neuts Hypogranular Neuts Large Granular Lymphs # Lrg Granular Lymphs Hairy Cells Smudge Cells Toxic Granulation Toxic Vacuolation Dohle Bodies Mira Rods Platelet Estimate Hypogranular Platelets Clumped Platelets Giant Platelets Platelet Satelliting RBC Morphology Polychromasia Hypochromasia Poikilocytosis Basophilic Stippling Anisocytosis Microcytosis Macrocytosis Spherocytes Pappenheimer Bodies Sickle Cells Target Cells Tear Drop Cells Ovalocytes Stomatocytes [place] Bodies Echinocytes Acanthocytes (Spur) Rouleaux RBC Agglutinates Schistocytes RBC Morph Comment Sezary Cell PT (9.0-12.0) Seconds INR (0.9-1.1) APTT (21.0-31.0) Seconds PTT Ratio Sodium (136-145) mmol/L Potassium (3.5-5.1) mmol/L Chloride (98-107) mmol/L Carbon Dioxide (21-32) mmol/L Anion Gap (3-11) BUN (7-18) mg/dl Creatinine (0.6-1.2) mg/dl Est Cr Clr Drug Dosing ml/min Est GFR ( Amer) Est GFR (Non-Af Amer) BUN/Creatinine Ratio (10-20) Glucose (70-99) mg/dl Lactate (0.4-2.0) mmol/L Calcium (8.5-10.1) mg/dl Magnesium (1.8-2.4) mg/dl Total Bilirubin (0.2-1) mg/dl AST (15-37) U/L ALT (12-78) U/L Alkaline Phosphatase (45-117) U/L Ammonia (11-32) umol/L Total Protein (6.4-8.2) gm/dl Albumin (3.4-5.0) gm/dl Globulin (2.5-4.0) gm/dl Albumin/Globulin Ratio (0.9-2) Procalcitonin 2.56 H (0-0.5) ng/ml Urine Color Urine Appearance (Clear) Urine pH (4.5-7.5) Ur Specific [place] (1.000-1.030) Urine Protein (Negative) Urine Glucose (UA) (Negative) Urine Ketones (Negative) Urine Blood (Negative) Urine Nitrite (Negative) Urine Bilirubin (Negative) Urine Urobilinogen (Negative) Ur Leukocyte Esterase (Negative) Urine WBC (Auto) (0-5) /hpf Urine RBC (Auto) (0-4) /hpf U Hyaline Cast (Auto) (0-5) /lpf U Epithel Cells (Auto) (0-5) /lpf Urine Bacteria (Auto) (Negative) Urine Yeast Imaging Data Radiologist's Impression: Radiology results as stated below per my review and the radiologist's interpretation: XR chest 1V portable CLINICAL HISTORY: Sepsis dyspnea COMPARISON STUDY: 08/08/2019 FINDINGS: The bones soft tissues and hemidiaphragms are normal. The cardi omediastinal silhouette is normal. The lungs are clear. The pulmonary vasculature is normal. IMPRESSION: Negative chest. The above report was generated using voice recognition software. It may contain grammatical, syntax or spelling errors. Electronically signed by: Ross Cabral M.D. 10/02/2019 8:[address] head/brain wo con CT DOSE: 638.56 mGycm HISTORY: Mental status change. confusion TECHNIQUE: Multiaxial CT images of the head were performed without the use of intravenous contrast. A dose lowering technique was utilized adhering to the principles of ALARA. Comparison: None. Findings: The paranasal sinuses and mastoid air cells are clear. Findings of atrophy and chronic small vessel change. Mild compensatory ventricular pro minence. Density characteristics are unchanged compared to the prior study. Small old left cerebellar infarct. No midline shift. Impression: No acute intracranial abnormality. Chronic and age-related change. The above report was generated using voice recognition software. It may contain grammatical, syntax or spelling errors. Electronically signed by: Ross Cabral M.D. 10/02/2019 8:28 PM ECG Data Attestation: I personally reviewed and interpreted this ECG as follows: Indication: + other (lethargic) Rate (beats per minute): 63 Rhythm: + normal sinus ECG ST segments: no ST elevation ECG Findings: + Other (QTc is 480); no PVCs Blood Pressure Blood Pressure Findings: Low blood pressure Blood Pressure Disposition: further management by hospitalist MDM Narrative There is a moderate leukocytosis, this would be consistent with infection. No concerning anemia. INR is elevated consistent with her Coumadin use, she is subtherapeutic though. Renal panel testing does show some dehydration with a creatinine of 1.5. Magnesium is low at 1.6. Lactic acid level was elevated consistent with infection and dehydration. No worrisome liver enzyme elevation. Ammonia level was not elevated. Procalcitonin level was elevated some consistent with a bacterial infection. Urinalysis shows infection, urine culture and blood cultures are pending. Chest film does not show pneumonia. Brain CT shows no acute bleed or mass-effect. Patient presents with a change in mental status, a lower blood pressure. She appears to have early sepsis from a urinary infection. She received IV saline, IV cefepime. She was given IV magnesium. A second bolus of IV saline was given. The patient seems comfortable. I did speak with her and her daughter. Hospitalization is warranted. Case management has been involved. The on-call hospitalist was consulted. Impression & Plan Sepsis, Change in mental status, UTI (urinary tract infection), Hypotension, Dehydration, Hypomagnesemia Discharge Plan Visit Data Chief Complaint: Lethargic Stated Complaint: LETHARGIC ED Provider: Souleymane Kim Discharge Problem: Sepsis, Change in mental status, UTI (urinary tract infection), Hypotension, Dehydration, Hypomagnesemia Patient Disposition: Being Evaluated by Hospitalist Forms Stand Alone Forms: [facility] Prescriptions Prescriptions: No Action pantoprazole [Protonix] 40 mg Tablet,Delayed Release (Dr/Ec) 40 mg PO QAM Qty: 0 RF: 0 mirtazapine 15 mg Tablet 15 mg PO HS Qty: 0 RF: 0 acetaminophen 325 mg Tablet 650 mg PO Q4H PRN (Reason: Pain) Qty: 0 RF: 0 gabapentin 100 mg Capsule 100 mg PO HS Qty: 0 RF: 0 ferrous sulfate 325 mg (65 mg iron) Tablet 325 mg PO BID 30 Days Qty: 60 RF: 3 warfarin 2 mg tablet 2 mg PO UD RF: 0 warfarin 1 mg tablet 1 mg PO UD RF: 0 metoprolol succinate 25 mg tablet extended release 24 hr 12.5 mg PO DAILY RF: 0 potassium chloride [Klor-Con M10] 10 mEq Tablet,Er Particles/Crystals 10 meq PO DAILY Qty: 30 RF: 1 alendronate 70 mg tablet 70 mg PO WK RF: 0 escitalopram oxalate 20 mg tablet 20 mg PO QAM RF: 0 Referrals Referrals: MAURICE ESPINOSA [Primary Care Provider] - Discharge Problem: Sepsis Qualifiers: Sepsis type: sepsis due to unspecified organism Sepsis acute organ dysfunction status: unspecified Qualified Code(s): A41.9 - Sepsis, unspecified organism Change in mental status Qualifiers: Altered mental status type: unspecified Qualified Code(s): R41.82 - Altered mental status, unspecified UTI (urinary tract infection) Qualifiers: Urinary tract infection type: site unspecified Hematuria presence: without hematuria Qualified Code(s): N39.0 - Urinary tract infection, site not specified Hypotension Qualifiers: Hypotension type: unspecified hypotension type Qualified Code(s): I95.9 - Hypotension, unspecified The scribe's documentation has been prepared under my direction and personally reviewed by me in its entirety. I confirm that the note above accurately reflects all work, treatment, procedures, and medical decision making performed by me.
[2019-10-02 20:57] LABS: Basophils # (auto) 0.01 K/uL (0-0.2); Basophils % (auto) 0.1 %; Hematocrit (blood only) 39.8 % (37-47); Hemoglobin 13.5 g/dL (12.0-16.0); Immature Granulocytes # (auto) 0.07 K/uL (0.00-0.02); Immature Granulocytes % (auto) 0.4 %; Lymphocytes # (auto) 0.86 K/uL (1.2-3.4); Lymphocytes % (auto) 5.3 %; Mean Corpuscular Hemoglobin 34.8 pg (25-34); Mean Corpuscular Hgb Conc 33.9 g/dL (32-36); Mean Corpuscular Volume 102.6 fL (80-100); Mean Platelet Volume 9.4 fL (7.4-10.4); Monocytes # (auto) 1.17 K/uL (0.11-0.59); Monocytes % (auto) 7.2 %; Platelet Count 167 K/uL (130-400); RDW Coefficient of Variation 13.9 % (11.5-14.5); RDW Standard Deviation 52.2 fL (36.4-46.3); Red Blood Count 3.88 M/uL (4.2-5.4); White Blood Count 16.21 K/uL (4.8-10.8)
[2019-10-02 21:08] LABS: INR 1.5 (0.9-1.1); Partial Thromboplastin Ratio 1.2; Partial Thromboplastin Time 31.2 Seconds (21.0-31.0); Prothrombin Time 15.2 Seconds (9.0-12.0)
[2019-10-02 21:17] LABS: Albumin Level 2.6 gm/dl (3.4-5.0); BUN Creatinine Ratio 19.1 (10-20); Calcium 8.5 mg/dl (8.5-10.1); Creatinine Clr Calc Pharmacy 20.6 ml/min; Est GFR (African American) 35.6; Est GFR (Non-African American) 30.8; Magnesium 1.6 mg/dl (1.8-2.4)
[2019-10-02 21:19] LABS: Albumin Globulin Ratio 0.6 (0.9-2); Globulin 4.1 gm/dl (2.5-4.0); Total Protein 6.7 gm/dl (6.4-8.2)
[2019-10-02] MEDS ORDERED: MAGNESIUM SULFATE / D5W 1 GM/100 ML BAG IV ONE (21:25)
[2019-10-02] MEDS ORDERED: SODIUM CHLORIDE 0.9% 1000ML 500 ML IV ONE (21:35)
[2019-10-02] MEDS ORDERED: NITROGLYCERIN SL 0.4 MG/TAB TAB SL PRN (23:31)
[2019-10-02] MEDS ORDERED: ONDANSETRON INJ 2 MG/ML 2 ML VIAL IV PRN (23:31)
[2019-10-02] MEDS ORDERED: ACETAMINOPHEN 325 MG TAB PO PRN (23:31)
[2019-10-02] MEDS ORDERED: CEFEPIME CONSULT ACTIVE PRN (23:48)
[2019-10-02] MEDS ORDERED: MICONAZOLE NITRATE POWDER 43 GM EXT PRN (23:54)
[2019-10-03] MEDS: SODIUM CHLORIDE 0.9% 1000ML 1,000 ML IV SCH ×2 (00:03→07:45)
[2019-10-03] MEDS: WARFARIN SOD 2 MG TAB PO SCH (00:04)
--- NOTE | 2019-10-03 02:28 | History and Physical Report ---
DATE OF ADMISSION: 10/02/2019 CHIEF COMPLAINT: Altered mental status, lethargy. HISTORY OF PRESENT ILLNESS: This is an 89-year-old female with past medical history significant for history of sepsis, UTI, metabolic encephalopathy in the recent admission in August, history of paroxysmal atrial fibrillation, history of CAD, hypertension, hypothyroidism, depression, history of DVT, nonobstructive CAD, chronic kidney disease stage III, resident of [facility] [place], wheelchair bound, comes in because of last few days of getting more confused, lethargic, had a low-grade temperature today and poor appetite and was brought in here and found to have UTI and sepsis. Daughter in the room, the patient is otherwise alert and oriented as per the daughter and she is on regular diet and she eats okay. Currently, very hard of hearing, she did not have any hearing aids. She can tell her name, knows that she is in the hospital, knows this is September, but could not tell her date of , but could not tell the year. The patient denies any headache, denies any cough, denies any nausea, denies abdominal pain. Denies any burning micturition. Denies any chest pain. Could not get much history from the patient. On her last admission, she has had her gallbladder taken out and the surgical sites are healed well. Blood pressure somewhat on the lower side. Lactic acid is 2.6. White count is 16, creatinine is 1.5, INR 1.5. Procalcitonin is 2.5. Urinalysis positive. Chest x-ray is unremarkable. CT head unremarkable. ALLERGIES: OMEPRAZOLE. PAST MEDICAL HISTORY: As mentioned above. PAST SURGICAL HISTORY: History of lumbar surgeries, total hip arthroplasty in left side, right total knee arthroplasty, history of lithotripsy, history of cataract surgery, history of appendectomy. FAMILY HISTORY: Significant for: Mother had pancreatic cancer. Father had coronary artery disease. SOCIAL HISTORY: , currently living at [facility] in [place] assisted living. No smoking history, no alcohol history. No substance abuse history. REVIEW OF SYSTEMS: As per HPI. Could not get complete review of symptoms as the patient is somewhat confused and hard of hearing. MEDICATIONS: The patient is on Tylenol 650 mg p.o. q. 4 hours p.r.n., alendronate 70 mg p.o. q. weekly, Lexapro 20 mg p.o. a.m., ferrous sulfate 325 mg p.o. b.i.d., gabapentin 100 mg at bedtime, Toprol-XL 12.5 mg p.o. daily, Remeron 15 mg p.o. at bedtime, Protonix 40 mg p.o. a.m., potassium chloride 10 mEq p.o. daily, warfarin 2 mg alternate with 1 mg. PHYSICAL EXAMINATION: GENERAL: The patient is alert and awake, not in acute distress, old and frail. VITAL SIGNS: Temperature 36.7, pulse 61, respiratory rate 18, blood pressure 86/40, oxygen 96% room air. HEENT: No pallor, no icterus. Pupils equal, round, reactive to light. NECK: No JVD, no neck masses, no carotid bruits. CARDIOVASCULAR: S1, S2 heard, regular rate and rhythm, no murmur, no gallop. RESPIRATORY SYSTEM: Normal AP diameter. No accessory muscle use. No wheezing. No crackles. ABDOMEN: Soft, bowel sounds present, nontender. No distention. CENTRAL NERVOUS SYSTEM: Alert and awake, oriented to name and place, obeys simple commands. Moves extremities. EXTREMITIES: No edema, no erythema. LABORATORY DATA: WBC 16.2, hemoglobin 13.5, hematocrit 39.8, platelets 167. PT 15.2, INR 1.5, APTT 31.2. Sodium 136, potassium 4, chloride 101, bicarbonate 24, BUN 29, creatinine 1.5, serum glucose 132, lactate 2.6, calcium 8.5, magnesium 1.6, total bilirubin 1, AST 33, ALT 17, alkaline phosphatase 90. Ammonia less than 10, procalcitonin 2.5. Urinalysis positive for leukocyte esterase and bacteria. Chest x-ray, no acute findings. CT of the head, no acute findings. EKG: Normal sinus rhythm, rate of 63, no acute ST changes seen. ASSESSMENT AND PLAN: This is an 89-year-old female who presents with altered mental status and found to have urinary tract infection and sepsis. 1. Metabolic encephalopathy, mostly secondary to sepsis from urinary tract infection, meets criteria for sepsis with elevated white count, UA positive and elevated lactic acid and low blood pressures. We will follow the repeat lactic acid. ER starting on cefepime, which we will continue and follow the repeat lactic acid, follow the repeat labs. Monitor the hemodynamics. Follow the cultures and closely monitor in the med/surg tele. 2. History of deep vein thrombosis, on Coumadin, INR subtherapeutic. Follow the PT/INR in a.m. and adjust Coumadin dose. 3. History of paroxysmal atrial fibrillation. Follow the INR. Adjust the Coumadin dose. Continue Toprol-XL with holding parameters, currently stable. 4. History of left hydronephrosis in last admission. No further workup as per urology as per last discharge summary notes. 5. History of cholelithiasis with acute cholecystitis without obstruction during last admission status post ERCP and laparoscopic cholecystectomy on August 10. Surgical site incisions healed well. 6. Depression. Continue Remeron and Lexapro. 7. Gastroesophageal reflux disease. Continue Protonix. 8. Deep venous thrombosis prophylaxis, sequential compression devices. DISPOSITION: Admit to med/surg tele. Code status: DNR as per discussion with daughter. The patient is wheelchair bound. Discharge back to [facility] when stable. Social Service to help with discharge planning. CHRISTI
[2019-10-03] MEDS ORDERED: SODIUM CHLORIDE 0.9% 500 ML IV SCH (04:15)
[2019-10-03 06:03] LABS: Basophils # (auto) 0.01 K/uL (0-0.2); Basophils % (auto) 0.1 %; Hematocrit (blood only) 29.7 % (37-47); Hemoglobin 9.9 g/dL (12.0-16.0); Immature Granulocytes # (auto) 0.03 K/uL (0.00-0.02); Immature Granulocytes % (auto) 0.2 %; Lymphocytes # (auto) 0.64 K/uL (1.2-3.4); Lymphocytes % (auto) 4.8 %; Mean Corpuscular Hemoglobin 34.5 pg (25-34); Mean Corpuscular Hgb Conc 33.3 g/dL (32-36); Mean Corpuscular Volume 103.5 fL (80-100); Mean Platelet Volume 9.1 fL (7.4-10.4); Monocytes # (auto) 0.82 K/uL (0.11-0.59); Monocytes % (auto) 6.1 %; Neutrophils # (auto) 11.94 K/uL (1.4-6.5); Neutrophils % (auto) 88.8 %; Platelet Count 145 K/uL (130-400); RDW Coefficient of Variation 13.6 % (11.5-14.5); RDW Standard Deviation 51.6 fL (36.4-46.3); Red Blood Count 2.87 M/uL (4.2-5.4); White Blood Count 13.44 K/uL (4.8-10.8)
[2019-10-03 06:28] LABS: INR 1.7 (0.9-1.1)
[2019-10-03 06:36] LABS: Potassium 3.6 mmol/L (3.5-5.1)
[2019-10-03 06:37] LABS: BUN Creatinine Ratio 20.3 (10-20); Calcium 7.5 mg/dl (8.5-10.1); Creatinine Clr Calc Pharmacy 28.1 ml/min; Est GFR (African American) 50.1; Est GFR (Non-African American) 43.2; Magnesium 1.9 mg/dl (1.8-2.4)
[2019-10-03] MEDS: POTASSIUM CHLORIDE 10 MEQ TABCR PO SCH (07:47)
[2019-10-03] MEDS: FERROUS SULFATE 325 MG TAB PO SCH ×2 (07:47→20:39)
[2019-10-03] MEDS: METOPROLOL SUCC 25MG EXT REL TAB PO SCH (07:48)
[2019-10-03] MEDS: ESCITALOPRAM OXALATE 20 MG TAB PO SCH (07:48)
[2019-10-03] MEDS: PANTOprazole 40 MG TAB PO SCH (07:49)
[2019-10-03] MEDS ORDERED: CEFEPIME 2,000 MG in SYRINGE 7.5 ML IV SCH ×2 (09:00→21:00)
--- NOTE | 2019-10-03 11:14 | Hospitalist Progress Note ---
Date of Service October 03, 2019 Assessment & Plan (1) Sepsis: Metabolic encephalopathy Lactic acidosis Urinary Tract infection -This is an 89-year-old female who presents with altered mental status and found to have urinary tract infection and sepsis and concerns of Metabolic encephalopathy -continue empiric cefepime -lactic acid of 2.6 on admission has normalized after IV fluids and antibiotics. IV fluids stopped in AM of 10/03/19 -urine culture with gram negative bacilli (in the past patient had generally pansensitive Klebsiella pneumoniae), follow blood cultures -patient appears to be answering questions appropriately as of AM of 10/03/19 -check ionized calcium, check TSH, creatinine kinase Acute Kidney injury -admission creatinine 1.5 -creatinine downtrended with IV fluids History of left hydronephrosis in last admission -No further workup as per urology as per last discharge summary notes. History of cholelithiasis with acute cholecystitis without obstruction during last admission status post ERCP and laparoscopic cholecystectomy on August 10, 2019 paroxysmal atrial fibrillation History of deep vein thrombosis in the past history of CAD as per records -currently normal sinus rhythm -admission INR subtherapeutic as 1.5, rising to 1.7 -continue coumadin -Continue Toprol-XL Depression -Continue Remeron and Lexapro Gastroesophageal reflux disease -Continue Protonix. Deep venous thrombosis prophylaxis Subjective Patient seen and examined this AM. She is awake and speaking in full sentences. Denies acute pain. Breathing on room air. she appears to be comfortable. She affirms that she uses wheelchair when at home for mobility. She is able to move all extremities. Telemetry review with normal sins rhythm. patient appears to understand that she is in the hospital. Review of Systems Review of Systems: All systems reviewed & are unremarkable except as noted in HPI & below Physical Exam Constitutional: comfortable Eyes: PERRL, conjunctivae normal, anicteric sclerae EOM intact bilaterally Neck: normal visual inspection Respiratory: normal respiratory effort Cardiovascular: Rate/Rhythm: regular rate and regular rhythm Gastrointestinal (Abdomen): Inspection/Auscultation: abdomen normal to inspection and + abdomen distended Musculoskeletal: Head/Neck/Chest: normocephalic and head atraumatic Neurologic: PERRL, EOMI, accommodation nl, no face palsy, no dysarthria CN's II-XI intact bilaterally Psychiatric: Orientation: alert and cooperative Results & Data Vital Signs (Past 12 Hours) Vital Signs Temp Pulse Pulse Resp BP BP Pulse Ox 10/03/19 10:05 72 10/03/19 07:00 36.6 C 54 L 16 110/69 97 10/03/19 05:31 79 94/58 L 10/03/19 04:01 36.4 C L 81 16 78/41 L 94 10/03/19 02:05 60 (1) Sepsis Sepsis acute organ dysfunction status: unspecified Sepsis type: sepsis due to unspecified organism Qualified Code(s): A41.9 - Sepsis, unspecified organism
[2019-10-03] MEDS ORDERED: PIPERACILL/TAZOBAC CONSULT ACTIVE PRN (11:56)
[2019-10-03] MEDS ORDERED: PIPERACILLIN/TAZOBACTAM 3.375 GM in DEXTROSE 5% 100 ML IV ONE (12:15)
[2019-10-03 12:25] LABS: Thyroid Stimulating Hormone 1.8 uIu/ml (0.300-4.500)
[2019-10-03] MEDS ORDERED: WARFARIN SOD 1 MG TAB PO SCH (16:00)
[2019-10-03] MEDS: PIPERACILLIN/TAZOBACTAM 3.375 GM in DEXTROSE 5% 100 ML IV SCH (17:04)
[2019-10-03] MEDS: GABAPENTIN 100 MG CAP PO SCH (20:39)
[2019-10-03] MEDS: MIRTAZAPINE TAB 15 MG TAB PO SCH (20:39)
[2019-10-04] MEDS: PIPERACILLIN/TAZOBACTAM 3.375 GM in DEXTROSE 5% 100 ML IV SCH ×3 (01:43→18:12)
[2019-10-04 06:35] LABS: Basophils # (auto) 0.01 K/uL (0-0.2); Basophils % (auto) 0.1 %; Eosinophils # (auto) 0.15 K/uL (0-0.5); Eosinophils % (auto) 1.8 %; Hematocrit (blood only) 33.2 % (37-47); Hemoglobin 10.9 g/dL (12.0-16.0); Immature Granulocytes # (auto) 0.01 K/uL (0.00-0.02); Immature Granulocytes % (auto) 0.1 %; Lymphocytes # (auto) 1.02 K/uL (1.2-3.4); Lymphocytes % (auto) 11.9 %; Mean Corpuscular Hemoglobin 33.5 pg (25-34); Mean Corpuscular Hgb Conc 32.8 g/dL (32-36); Mean Corpuscular Volume 102.2 fL (80-100); Mean Platelet Volume 9.7 fL (7.4-10.4); Monocytes # (auto) 0.66 K/uL (0.11-0.59); Monocytes % (auto) 7.7 %; Neutrophils # (auto) 6.69 K/uL (1.4-6.5); Neutrophils % (auto) 78.4 %; Platelet Count 147 K/uL (130-400); RDW Coefficient of Variation 13.7 % (11.5-14.5); RDW Standard Deviation 51.4 fL (36.4-46.3); Red Blood Count 3.25 M/uL (4.2-5.4); White Blood Count 8.54 K/uL (4.8-10.8)
[2019-10-04 06:49] LABS: INR 2.3 (0.9-1.1)
[2019-10-04 07:11] LABS: Albumin Level 2.1 gm/dl (3.4-5.0); BUN Creatinine Ratio 16.9 (10-20); Creatinine Clr Calc Pharmacy 31.2 ml/min; Est GFR (African American) 57.3; Est GFR (Non-African American) 49.4; Potassium 3.5 mmol/L (3.5-5.1)
[2019-10-04 07:13] LABS: Albumin Globulin Ratio 0.6 (0.9-2); Bilirubin,Total 0.6 mg/dl (0.2-1); Globulin 3.7 gm/dl (2.5-4.0); Total Protein 5.8 gm/dl (6.4-8.2)
[2019-10-04] MEDS: FERROUS SULFATE 325 MG TAB PO SCH ×2 (08:39→08:53)
[2019-10-04] MEDS: PANTOprazole 40 MG TAB PO SCH ×2 (08:40→08:57)
[2019-10-04] MEDS: POTASSIUM CHLORIDE 10 MEQ TABCR PO SCH ×2 (08:40→08:54)
[2019-10-04] MEDS: METOPROLOL SUCC 25MG EXT REL TAB PO SCH ×2 (08:40→09:07)
[2019-10-04] MEDS: ESCITALOPRAM OXALATE 20 MG TAB PO SCH ×2 (08:40→08:57)
--- NOTE | 2019-10-04 09:55 | Hospitalist Progress Note ---
Date of Service October 04, 2019 Assessment & Plan (1) Sepsis: Metabolic encephalopathy Lactic acidosis Urinary Tract infection Bacteremia (gram negative) -This is an 89-year-old female who presents with altered mental status and found to have urinary tract infection and sepsis and concerns of Metabolic encephalopathy -was started on empiric cefepime on admission -lactic acid of 2.6 on admission has normalized after IV fluids and antibiotics. IV fluids stopped in AM of 10/03/19 -patient appears to be answering questions appropriately as of AM of 10/03/19 -urine culture were positive, admission blood cultures with gram negative bacilli in 2 bottles and cefepime was changed to Zosyn on 10/03/19 -10/04/19: pansensitive Klebsiella pneumoniae in urine culture, awaiting speciation of bacteremia, continue Zosyn, Infectious disease consult requested Acute Kidney injury -admission creatinine 1.5 -creatinine downtrended with IV fluids on this admission -now creatinine is close to low 1s elevated creatinine kinase -creatinine kinase 438 on 10/03/19, trend creatinine kinase -normal TSH low ionized calcium -calcium gluconate ordered on 10/04/19 History of left hydronephrosis in last admission -No further workup as per urology as per last discharge summary notes. History of cholelithiasis with acute cholecystitis without obstruction during last admission status post ERCP and laparoscopic cholecystectomy on August 10, 2019 paroxysmal atrial fibrillation History of deep vein thrombosis in the past history of CAD as per records -currently normal sinus rhythm -admission INR subtherapeutic as 1.5, continue coumadin -INR 2.3 on 10/04/19 -Continue Toprol-XL possible dysphagia -speech and swallow consulted -monitor INR closely if low oral intake while on coumadin -hold iron pills Gastroesophageal reflux disease -Continue Protonix. Depression -Continue Remeron and Lexapro Deep venous thrombosis prophylaxis: therapeutic INR Subjective Patient seen and examined this AM. She is awake and alert and answers questions appropriately. She denied eating the meals yesterday. Examined when breakfast at bedside. Medical doctor helped give patient a sip of water with straw. She appeared to have some discomforts with swallowing the water. But she cannot described the sensation. Patient otherwise breathing comfortably on room air. no shortness of breath. she denies pain anywhere of the chest or abdomen. moves all extremities on the bed Review of Systems Review of Systems: All systems reviewed & are unremarkable except as noted in HPI & below Physical Exam Constitutional: comfortable Eyes: PERRL, conjunctivae normal, anicteric sclerae EOM intact bilaterally Neck: normal visual inspection Respiratory: normal respiratory effort Cardiovascular: Rate/Rhythm: regular rate and regular rhythm Gastrointestinal (Abdomen): Inspection/Auscultation: abdomen normal to inspection and normal bowel sounds Percussion/Palpation: abdomen soft Musculoskeletal: Head/Neck/Chest: normocephalic and head atraumatic Neurologic: PERRL, EOMI, accommodation nl, no face palsy, no dysarthria CN's II-XI intact bilaterally Psychiatric: Orientation: alert and cooperative Results & Data Vital Signs (Past 12 Hours) Vital Signs Temp Pulse Pulse Resp BP Pulse Ox 10/04/19 08:36 36.6 C 59 L 22 112/69 96 10/04/19 04:05 36.8 C 72 18 101/55 L 96 10/04/19 00:48 69 10/03/19 23:03 36.5 C 66 18 109/67 94 (1) Sepsis Sepsis acute organ dysfunction status: unspecified Sepsis type: sepsis due to unspecified organism Qualified Code(s): A41.9 - Sepsis, unspecified organism
[2019-10-04] MEDS ORDERED: CALCIUM GLUCONATE 10% 1,000 MG in SODIUM CHLORIDE 0.9% 50 ML IV STA (10:01)
--- NOTE | 2019-10-04 10:22 | Infectious Disease Consult ---
Date of Consultation October 04, 2019 Assessment & Plan (1) Gram negative sepsis: continue on zosyn for now, await ID gnr from blood cultures, suspect will be K. pneumo as well. repeat blood cultures x 2 sets today. will follow, will need 14 days abx from first negative blood culture, hopefully can change to po to complete duration. (2) UTI (urinary tract infection): History of Present Illness Attending Physician: Ricki Soliz MD pt admitted with increased lethargy. In ER she was afebrile, wbc elevated at 16, UA + +3LE, >30 wbc, +3 bacteria. Urine culture on 10/02 growing K. pneumo, resistant to macrobid only. blood cultures growing GNR 2 sets. ID pending. She is on zosyn and tolerating well. She denies any abd pain, no n/v/d. not eating well. no gu symptoms. no cp, sob, cough. she states she is tired and would like to sleep, otherwise no complaints. wbc improved to 8, creat 1. Allergies Allergy/AdvReac Type Severity Reaction Status Date / Time omeprazole Allergy Unknown distal Verified 10/02/19 20:42 edema-none with pantoprozole Home Medications Home Medications Medication Instructions Recorded Confirmed Type pantoprazole [Protonix] 40 mg PO QAM #0 12/27/15 10/02/19 History acetaminophen 650 mg PO Q4H PRN #0 01/08/17 10/02/19 History mirtazapine 15 mg PO HS #0 tab 01/08/17 10/02/19 History gabapentin 100 mg PO HS #0 03/10/18 10/02/19 History ferrous sulfate 325 mg PO BID 30 Days #60 tab 04/08/18 10/02/19 History alendronate 70 mg PO WK 02/24/19 10/02/19 History escitalopram oxalate 20 mg PO QAM 02/24/19 10/02/19 History metoprolol succinate 12.5 mg PO DAILY 08/08/19 10/02/19 History warfarin 1 mg PO UD 08/08/19 10/02/19 History warfarin 2 mg PO UD 08/08/19 10/02/19 History potassium chloride [Klor-Con M10] 10 meq PO DAILY #30 tab 08/18/19 10/02/19 Rx Patient History Medical History Anticoagulated on Coumadin (Chronic) Anxiety (Chronic) Atrial fibrillation Atrial fibrillation (Chronic) CAD (coronary artery disease) (Chronic) Chronic pain (Chronic) Depression (Deleted) Depression (Chronic) GERD (gastroesophageal reflux disease) History of DVT (deep vein thrombosis) History of DVT (deep vein thrombosis) (Chronic) HLD (hyperlipidemia) HTN (hypertension) HTN (hypertension) (Chronic) Hypothyroidism (Chronic) Migraines Nephrolithiasis (Chronic) NSTEMI (non-ST elevated myocardial infarction) (Resolved) OAB (overactive bladder) (Chronic) Osteoarthritis (Chronic) Sciatica (Chronic) UTI (urinary tract infection) Surgical History H/O lithotripsy (Chronic) 05/29/18. LMA #4. H/O total hip arthroplasty (Chronic) History of appendectomy (Chronic) History of cataract surgery (Chronic) History of lumbar surgery (Chronic) History of total hip arthroplasty (Chronic) LEFT History of total knee replacement (Chronic) RIGHT Family History Mother , 70 Pancreatic cancer Father Coronary heart disease Social History Preferred Language: Setswana Communication Ability: Effective [employer] Required: No Beliefs That Will Affect Care: None marital status: / Current Living Situation: Personal Care Facility Current Living Situation Comment: [facility] Other Information That Helps Us Care for You: No Feels Safe at Home: Yes Safety Concerns: Feels Safe At This Time Smoking Status: Never smoker Do You Dip or Chew Tobacco: No ; Second Hand Exposure: No ; Tobacco Cessation Education Requested by Patient: No Hx Alcohol Use: No Hx Substance Use: No Review of Systems Review of Systems: All systems reviewed & are unremarkable except as noted in HPI & below Physical Exam Constitutional: WD/WN, vitals as above Eyes: PERRL, conjunctivae normal, anicteric sclerae ENMT: external ear and nose normal, oropharynx normal Neck: normal visual inspection Respiratory: normal respiratory effort, lungs clear to auscultation Cardiovascular: RRR, no murmur, no edema Gastrointestinal (Abdomen): normal bowel sounds, soft, nontender, no hep atosplenomegaly Musculoskeletal: no cyanosis or clubbing, extremities motor strength 5/5 Skin: no rashes, warm and dry Psychiatric: A+Ox3, euthymic affect Results & Data Vital Signs (Past 12 Hours) Vital Signs Temp Pulse Pulse Resp BP Pulse Ox 10/04/19 08:36 36.6 C 59 L 22 112/69 96 10/04/19 04:05 36.8 C 72 18 101/55 L 96 10/04/19 00:48 69 10/03/19 23:03 36.5 C 66 18 109/67 94 Laboratory Results Microbiology 10/02/19 20:45 Blood Aerobic Blood Culture - Preliminary Gram negative bacilli 10/02/19 20:45 Blood Anaerobic Blood Culture - Preliminary Gram negative bacilli 10/02/19 20:45 Blood Aerobic Blood Culture - Preliminary Gram negative bacilli 10/02/19 20:45 Blood Anaerobic Blood Culture - Preliminary Gram negative bacilli 10/02/19 19:40 Urine,Straight Cath Urine Culture - Final Klebsiella pneumoniae PG Care Time/CCT Total # of Minutes Spent Total Time Spent with Patient: Total time spent is greater than 50% in coordination of care (as documented) at patient's floor/unit and/or counseling patient: (1) UTI (urinary tract infection) Hematuria presence: without hematuria Urinary tract infection type: site u nspecified Qualified Code(s): N39.0 - Urinary tract infection, site not specified
[2019-10-04] MEDS: WARFARIN SOD 2 MG TAB PO SCH (16:05)
[2019-10-04] MEDS: GABAPENTIN 100 MG CAP PO SCH (20:04)
[2019-10-04] MEDS: MIRTAZAPINE TAB 15 MG TAB PO SCH (20:04)
[2019-10-05] MEDS: PIPERACILLIN/TAZOBACTAM 3.375 GM in DEXTROSE 5% 100 ML IV SCH ×2 (01:22→09:50)
[2019-10-05 06:08] LABS: Basophils # (auto) 0.02 K/uL (0-0.2); Basophils % (auto) 0.3 %; Eosinophils # (auto) 0.24 K/uL (0-0.5); Hematocrit (blood only) 31.4 % (37-47); Hemoglobin 10.3 g/dL (12.0-16.0); Immature Granulocytes # (auto) 0.02 K/uL (0.00-0.02); Immature Granulocytes % (auto) 0.3 %; Lymphocytes # (auto) 0.98 K/uL (1.2-3.4); Lymphocytes % (auto) 16.3 %; Mean Corpuscular Hgb Conc 32.8 g/dL (32-36); Mean Corpuscular Volume 103.6 fL (80-100); Mean Platelet Volume 9.6 fL (7.4-10.4); Monocytes # (auto) 0.55 K/uL (0.11-0.59); Monocytes % (auto) 9.2 %; Neutrophils # (auto) 4.19 K/uL (1.4-6.5); Neutrophils % (auto) 69.9 %; Platelet Count 155 K/uL (130-400); RDW Coefficient of Variation 13.7 % (11.5-14.5); RDW Standard Deviation 52.1 fL (36.4-46.3); Red Blood Count 3.03 M/uL (4.2-5.4)
[2019-10-05 06:17] LABS: INR 2.9 (0.9-1.1); Prothrombin Time 27.6 Seconds (9.0-12.0)
[2019-10-05 06:43] LABS: BUN Creatinine Ratio 11.5 (10-20); Creatinine Clr Calc Pharmacy 34.9 ml/min; Est GFR (African American) 67.5; Est GFR (Non-African American) 58.3; Potassium 3.3 mmol/L (3.5-5.1)
[2019-10-05] MEDS ORDERED: POTASSIUM CHLORIDE 20 MEQ TABCR PO STA (07:09)
[2019-10-05] MEDS: PANTOprazole 40 MG TAB PO SCH (07:34)
[2019-10-05] MEDS: ESCITALOPRAM OXALATE 20 MG TAB PO SCH (07:34)
[2019-10-05] MEDS: METOPROLOL SUCC 25MG EXT REL TAB PO SCH (07:34)
--- NOTE | 2019-10-05 09:52 | Hospitalist Progress Note ---
Date of Service October 05, 2019 Assessment & Plan (1) Sepsis: Metabolic encephalopathy Lactic acidosis Urinary Tract infection Bacteremia (gram negative) -This is an 89-year-old female who presents with altered mental status and found to have urinary tract infection and sepsis and concerns of Metabolic encephalopathy -was started on empiric cefepime on admission -lactic acid of 2.6 on admission has normalized after IV fluids and antibiotics. IV fluids stopped in AM of 10/03/19 -patient appears to be answering questions appropriately as of AM of 10/03/19 -urine culture were positive, admission blood cultures with gram negative bacilli in 2 bottles and cefepime was changed to Zosyn on 10/03/19 -10/04/19: pansensitive Klebsiella pneumoniae in admission 10/02/19 urine culture, awaiting speciation of bacteremia, continue Zosyn, Infectious disease consult requested, repeat blood culture drawn on 10/04/19 -10/05/19: admission 10/02/19 speciates also as pansensitive Klebsiella just like urine culture, follow up 10/04/19 blood culture results are pending; awaiting infectious disease recommendations on antibiotic de-escalation. case management is informed that patient is close to hospital discharge as patient stable and improving on antibiotics Acute Kidney injury -admission creatinine 1.5 -creatinine downtrended with IV fluids on this admission -now creatinine is close to low 1s elevated creatinine kinase -creatinine kinase 438 on 10/03/19, creatinine kinase 285 on 10/04/19, trend creatinine kinase -normal TSH mild hypokalemia -serum potassium 3.3, potassium ordered low ionized calcium -calcium gluconate ordered on 10/04/19 History of left hydronephrosis in last admission -No further workup as per urology as per last discharge summary notes. History of cholelithiasis with acute cholecystitis without obstruction during last admission status post ERCP and laparoscopic cholecystectomy on August 10, 2019 paroxysmal atrial fibrillation History of deep vein thrombosis in the past history of CAD as per records -currently normal sinus rhythm -admission INR subtherapeutic as 1.5, continue coumadin -INR 2.3 on 10/04/19 -INR is 2.9 on 10/05/19 coumadin is held -Continue Toprol-XL possible dysphagia -speech and swallow consulted -monitor INR closely if low oral intake while on coumadin -hold iron pills Gastroesophageal reflux disease -Continue Protonix. Depression -Continue Remeron and Lexapro Deep venous thrombosis prophylaxis: INR is 2.9 from coumadin Subjective Patient seen and examined this AM. She was just cleaned by nursing assoc. Patient able to make bowel movements. Awake and answering questions appropriately. patient does not have any other complaints of symptoms. She is from [facility] and she reports her family members came to hospital previous day Review of Systems Review of Systems: All systems reviewed & are unremarkable except as noted in HPI & below Physical Exam Constitutional: comfortable Eyes: PERRL, conjunctivae normal, anicteric sclerae EOM intact bilaterally Neck: normal visual inspection Respiratory: normal respiratory effort Cardiovascular: Rate/Rhythm: regular rate and regular rhythm Gastrointestinal (Abdomen): Inspection/Auscultation: abdomen normal to inspection and normal bowel sounds Percussion/Palpation: abdomen soft Musculoskeletal: Head/Neck/Chest: normocephalic and head atraumatic Neurologic: PERRL, EOMI, accommodation nl, no face palsy, no dysarthria CN's II-XI intact bilaterally Psychiatric: Orientation: alert and cooperative Results & Data Vital Signs (Past 12 Hours) Vital Signs Temp Pulse Pulse Resp BP Pulse Ox 10/05/19 08:22 56 L 10/05/19 07:18 36.5 C 59 L 18 112/59 L 96 10/05/19 04:00 36.2 C L 60 18 118/71 96 10/05/19 01:38 60 10/04/19 23:43 36.8 C 68 18 98/63 L 95 (1) Sepsis Sepsis acute organ dysfunction status: unspecified Sepsis type: sepsis due to unspecified organism Qualified Code(s): A41.9 - Sepsis, unspecified organism
--- NOTE | 2019-10-05 13:09 | Infectious Disease Progress Nt ---
Date of Service October 05, 2019 Assessment & Plan (1) Gram negative sepsis: will change to ancef repeat blood cultures x 2 pending. will follow, will need 14 days abx from first negative blood culture, can change to po keflex to complete duration. (2) UTI (urinary tract infection): Subjective pt seen in followup, doing well. one episode diarrhea today. eating better. No f/c. no sob, cp, link, cough. blood cultures growing K. pneumo. repeat pc pending, wbc 6, afebrile. overall feeling better. Review of Systems Review of Systems: All systems reviewed & are unremarkable except as noted in HPI & below Physical Exam Constitutional: WD/WN, vitals as above Eyes: PERRL, conjunctivae normal, anicteric sclerae ENMT: external ear and nose normal, oropharynx normal Neck: normal visual inspection Respiratory: normal respiratory effort, lungs clear to auscultation Cardiovascular: RRR, no murmur, no edema Gastrointestinal (Abdomen): normal bowel sounds, soft, nontender, no hepatosplenomegaly Musculoskeletal: no cyanosis or clubbing, extremities motor strength 5/5 Skin: no rashes, warm and dry Psychiatric: A+Ox3, euthymic affect Results & Data Vital Signs (Past 12 Hours) Vital Signs Temp Pulse Pulse Resp BP Pulse Ox 10/05/19 11:11 36.5 C 64 18 116/68 95 10/05/19 08:22 56 L 10/05/19 07:18 36.5 C 59 L 18 112/59 L 96 10/05/19 04:00 36.2 C L 60 18 118/71 96 10/05/19 01:38 60 Laboratory Results Microbiology 10/02/19 20:45 Blood Aerobic Blood Culture - Final Klebsiella pneumoniae 10/02/19 20:45 Blood Anaerobic Blood Culture - Final Klebsiella pneumoniae 10/02/19 20:45 Blood Aerobic Blood Culture - Final Klebsiella pneumoniae 10/02/19 20:45 Blood Anaerobic Blood Culture - Final Klebsiella pneumoniae 10/02/19 19:40 Urine,Straight Cath Urine Culture - Final Klebsiella pneumoniae PG Care Time/CCT Total # of Minutes Spent Total Time Spent with Patient: Total time spent is greater than 50% in coordination of care (as documented) at patient's floor/unit and/or counseling patient: (1) UTI (urinary tract infection) Hematuria presence: without hematuria Urinary tract infection type: site unspecified Qualified Code(s): N39.0 - Urinary tract infection, site not s pecified
[2019-10-05] MEDS ORDERED: CEFEPIME 2,000 MG in SYRINGE 7.5 ML IV SCH (14:00)
[2019-10-05] MEDS: CEFAZOLIN 1000MG 1,000 MG/7.5 ML SYR IV SCH ×2 (15:24→21:54)
[2019-10-05] MEDS: ACETAMINOPHEN 325 MG TAB PO PRN (15:46)
[2019-10-05] MEDS: GABAPENTIN 100 MG CAP PO SCH (21:25)
[2019-10-05] MEDS: MIRTAZAPINE TAB 15 MG TAB PO SCH (21:25)
[2019-10-06 06:30] LABS: Basophils # (auto) 0.01 K/uL (0-0.2); Basophils % (auto) 0.2 %; Eosinophils # (auto) 0.17 K/uL (0-0.5); Eosinophils % (auto) 2.8 %; Hematocrit (blood only) 31.7 % (37-47); Hemoglobin 10.6 g/dL (12.0-16.0); Immature Granulocytes # (auto) 0.03 K/uL (0.00-0.02); Immature Granulocytes % (auto) 0.5 %; Lymphocytes # (auto) 0.84 K/uL (1.2-3.4); Lymphocytes % (auto) 13.6 %; Mean Corpuscular Hemoglobin 34.5 pg (25-34); Mean Corpuscular Hgb Conc 33.4 g/dL (32-36); Mean Corpuscular Volume 103.3 fL (80-100); Mean Platelet Volume 9.5 fL (7.4-10.4); Monocytes % (auto) 9.7 %; Neutrophils # (auto) 4.52 K/uL (1.4-6.5); Neutrophils % (auto) 73.2 %; Platelet Count 177 K/uL (130-400); RDW Coefficient of Variation 13.5 % (11.5-14.5); Red Blood Count 3.07 M/uL (4.2-5.4); White Blood Count 6.17 K/uL (4.8-10.8)
[2019-10-06] MEDS: CEFAZOLIN 1000MG 1,000 MG/7.5 ML SYR IV SCH ×3 (06:32→21:30)
[2019-10-06 06:50] LABS: INR 3.6 (0.9-1.1)
[2019-10-06 07:05] LABS: BUN Creatinine Ratio 7.4 (10-20); Calcium 8.7 mg/dl (8.5-10.1); Creatinine Clr Calc Pharmacy 39.1 ml/min; Est GFR (Non-African American) 67.3; Potassium 3.7 mmol/L (3.5-5.1)
[2019-10-06] MEDS: METOPROLOL SUCC 25MG EXT REL TAB PO SCH (08:21)
[2019-10-06] MEDS: PANTOprazole 40 MG TAB PO SCH (08:21)
[2019-10-06] MEDS: ESCITALOPRAM OXALATE 20 MG TAB PO SCH (08:21)
--- NOTE | 2019-10-06 13:33 | Infectious Disease Progress Nt ---
Date of Service October 06, 2019 Assessment & Plan (1) Gram negative sepsis: will change to ancef repeat blood cultures x 2 pending. will follow, will need 14 days abx from first negative blood culture, can change to po keflex to complete duration. ok for d/c from ID standpoint when otherwise stable. (2) UTI (urinary tract infection): Subjective pt seen in followup, doing well on abx. changed to ancef yesterday. no f/c overnight. no abd pain, no n/v/d. eating well. no gu symptoms. repeat blood cultures remain negative. Review of Systems Review of Systems: All systems reviewed & are unremarkable except as noted in HPI & below Physical Exam Constitutional: WD/WN, vitals as above Eyes: PERRL, conjunctivae normal, anicteric sclerae ENMT: external ear and nose normal, oropharynx normal Neck: normal visual inspection Respiratory: normal respiratory effort, lungs clear to auscultation Cardiovascular: RRR, no murmur, no edema Gastrointestinal (Abdomen): normal bowel sounds, soft, nontender, no hepatosplenomegaly Musculoskeletal: no cyanosis or clubbing, extremities motor strength 5/5 Skin: no rashes, warm and dry Psychiatric: A+Ox3, euthymic affect Results & Data Vital Signs (Past 12 Hours) Vital Signs Temp Pulse Pulse Resp BP BP Pulse Ox 10/06/19 11:13 36.5 C 70 18 124/71 96 10/06/19 10:26 64 10/06/19 07:10 36.5 C 62 18 151/76 H 95 10/06/19 03:57 36.6 C 63 18 135/76 95 10/06/19 02:55 64 Laboratory Results Microbiology 10/05/19 09:08 Stool Escherichia coli Shiga Toxins Test - Preliminary 10/05/19 09:08 Stool Stool Culture - Preliminary No Salmonella isolated to date, No Shigella isolated to date, No Campylobacter jejuni isolated to date. 10/04/19 18:05 Blood Aerobic Blood Culture - Preliminary No growth in Aerobic bottle after 24 hours. 10/04/19 18:05 Blood Anaerobic Blood Culture - Preliminary No growth in Anaerobic bottle after 24 hours. 10/04/19 17:59 Blood Aerobic Blood Culture - Preliminary No growth in Aerobic bottle after 24 hours. 10/04/19 17:59 Blood Anaerobic Blood Culture - Preliminary No growth in Anaerobic bottle after 24 hours. 11/30/19 20:45 Blood Aerobic Blood Culture - Final Klebsiella pneumoniae 10/02/19 20:45 Blood Anaerobic Blood Culture - Final Klebsiella pneumoniae 10/02/19 20:45 Blood Aerobic Blood Culture - Final Klebsiella pneumoniae 10/02/19 20:45 Blood Anaerobic Blood Culture - Final Klebsiella pneumoniae 10/02/19 19:40 Urine,Straight Cath Urine Culture - Final Klebsiella pneumoniae PG Care Time/CCT Total # of Minutes Spent Total Time Spent with Patient: Total time spent is greater than 50% in coordination of care (as documented) at patient's floor/unit and/or counseling patient: (1) UTI (urinary tract infection) Hematuria presence: without hematuria Urinary tract infection type: site unspecified Qualified Code(s): N39.0 - Urinary tract infection, site not specified
[2019-10-06] MEDS: ACETAMINOPHEN 325 MG TAB PO PRN (15:44)
--- NOTE | 2019-10-06 16:30 | Hospitalist Progress Note ---
Date of Service October 06, 2019 Assessment & Plan (1) Sepsis: Present on admission with altered mental status Lactic acidosis, Leukocytosis and elevated procalcitonin on admission Received empiric cefepime on admission lactic acid of 2.6 on admission has normalized after IV fluids and antibiotics. Urine cx and blood cx on 10/02 grew klebsiella pna Was starting on Zosyn IV on 10/03 ID on board changed Zosyn to Ancef Repeat Blood cx no growth Will discharge on Keflex to complete 14 days course abx Metabolic encephalopathy Due acute infection (Above) CT head showed no acute intracranial abnormality Resolved Acute Kidney injury Creatinine 1.5 on admission Creatinine downtrended with IV fluids on this admission Creatinine 0.7 today Resolved Elevate CK level Creatinine kinase 438 on 10/03/19, creatinine kinase 285 on 10/04/19, trend creatinine kinase Resolved Hypokalemia K stable History of left hydronephrosis in last admission No further workup as per urology as per last discharge summary notes. History of cholelithiasis with acute cholecystitis without obstruction during last admission status post ERCP and laparoscopic cholecystectomy on August 10, 2019 paroxysmal atrial fibrillation History of deep vein thrombosis in the past currently normal sinus rhythm INR 3.6 today Continue Toprol-XL Coumadin held today Gastroesophageal reflux disease Continue Protonix. Depression Continue Remeron and Lexapro DVT px INR 3.6 today Will hold coumadin for today CODE STATUS DNR Subjective Pt was seen and examined Lying in bed with no distress Pt said that she feels fine Denies any chest pain, palpitation, dizziness and SOB Physical Exam Physical Exam: General- No acute distress Head- atraumatic Eyes- PERRL, EOMI, ENT- oropharynx clear Neck- supple, no JVD Lungs- clear to auscultation Heart- regular rhythm; no murmur Abdomen- normal bowel sounds, soft, nontender Extremities- no calf tenderness Neuro- alert, oriented x 3; PERRL, EOMI; no facial palsy; no dysarthria Skin- warm & dry Results & Data Vital Signs (Past 12 Hours) Vital Signs Temp Pulse Pulse Resp BP BP Pulse Ox 10/06/19 15:00 36.9 C 65 20 128/71 97 10/06/19 11:13 36.5 C 70 18 124/71 96 10/06/19 10:26 64 10/06/19 07:10 36.5 C 62 18 151/76 H 95 (1) Sepsis Sepsis acute organ dysfunction status: unspecified Sepsis type: sepsis due to unspecified organism Qualified Code(s): A41.9 - Sepsis, unspecified organism
[2019-10-06] MEDS: MIRTAZAPINE TAB 15 MG TAB PO SCH (21:11)
[2019-10-06] MEDS: GABAPENTIN 100 MG CAP PO SCH (21:11)
[2019-10-07] MEDS: CEFAZOLIN 1000MG 1,000 MG/7.5 ML SYR IV SCH ×2 (05:57→14:26)
[2019-10-07 07:51] LABS: Prothrombin Time 33.5 Seconds (9.0-12.0)
[2019-10-07 07:53] LABS: INR 3.6 (0.9-1.1)
[2019-10-07 08:06] LABS: Creatinine Clr Calc Pharmacy 43.3 ml/min; Est GFR (African American) 88.8; Est GFR (Non-African American) 76.6
[2019-10-07] MEDS: PANTOprazole 40 MG TAB PO SCH (08:16)
[2019-10-07] MEDS: METOPROLOL SUCC 25MG EXT REL TAB PO SCH (08:16)
[2019-10-07] MEDS: ESCITALOPRAM OXALATE 20 MG TAB PO SCH (08:16)
--- NOTE | 2019-10-07 14:30 | XRay Report ---
XR cervical spine 2 or 3V CLINICAL HISTORY: neck pain COMPARISON STUDY: Cervical spine CT 02/24/2019. FINDINGS: The cervical spine is visualized from C1 through C7. Straightening of the cervical spine. M ild anterolisthesis of C3 on C4 and C4 and C5, unchanged. Mild disc space narrowing at C2-C3 and shania re disc space narrowing at C6-C7 with small endplate osteophytes. This is also unchanged. Moderate fa cet degenerative changes throughout the majority of the cervical spine. Prevertebral soft tissues and the C1-C2 interval are intact. IMPRESSION: 1. No fractures within the visualized cervical spine. 2. Degenerative changes as described above. This is similar to the prior study. Electronically signed by: Carlos Ferguson M.D. 10/07/2019 2:28 PM
[2019-10-07] MEDS ORDERED: INFLUENZA Vaccine HIGH DOSE 65+yrs 0.5 mL Syr IM ONE (15:15)
--- NOTE | 2019-10-07 15:40 | Hospitalist Progress Note ---
Date of Service October 07, 2019 Assessment & Plan (1) Sepsis: Present on admission with altered mental status Lactic acidosis, Leukocytosis and elevated procalcitonin on admission Received empiric cefepime on admission lactic acid of 2.6 on admission has normalized after IV fluids and antibiotics. Urine cx and blood cx on 10/02 grew klebsiella pna Was starting on Zosyn IV on 10/03 ID on board changed Zosyn to Ancef Repeat Blood cx no growth Will discharge on Keflex to complete 14 days course abx Metabolic encephalopathy Due acute infection (Above) CT head showed no acute intracranial abnormality Resolved Acute Kidney injury Creatinine 1.5 on admission Creatinine downtrended with IV fluids on this admission Creatinine 0.7 today Resolved Elevate CK level Creatinine kinase 438 on 10/03/19, creatinine kinase 285 on 10/04/19, trend creatinine kinase Resolved Hypokalemia K stable History of left hydronephrosis in last admission No further workup as per urology as per last discharge summary notes. History of cholelithiasis with acute cholecystitis without obstruction during last admission status post ERCP and laparoscopic cholecystectomy on August 10, 2019 paroxysmal atrial fibrillation History of deep vein thrombosis in the past currently normal sinus rhythm INR 3.6 today Continue Toprol-XL Coumadin held yesterday and today Will resume coumadin on discharge Neck Tenderness Mostly due to Arthritis Denies any fall/trauma Neck Xray showed no fractures within the visualized cervical spine. Degenerative changes as described above. This is similar to the prior study. Continue tylenol prn Gastroesophageal reflux disease Continue Protonix. Depression Continue Remeron and Lexapro DVT px INR 3.6 today Will hold coumadin for today CODE STATUS DNR Disposition Will discharge today Subjective Pt was seen and examined Lying in bed with no distress Son present at bedside and was updated Pt said that she has tenderness in her neck She said that when she moves her neck that she can feel it grinding Denies any chest pain, palpitation, dizziness and SOB Physical Exam Physical Exam: General- No acute distress Head- atraumatic Eyes- PERRL, EOMI, ENT- oropharynx clear Neck- supple, no JVD Lungs- clear to auscultation Heart- regular rhythm; no murmur Abdomen- normal bowel sounds, soft, nontender Extremities- no calf tenderness Neuro- alert, oriented x 3; PERRL, EOMI; no facial palsy; no dysarthria Skin- warm & dry Results & Data Vital Signs (Past 12 Hours) Vital Signs Temp Pulse Pulse Resp BP BP Pulse Ox 10/07/19 15:20 36.4 C L 72 14 131/75 98 10/07/19 11:24 36.8 C 66 20 136/77 98 10/07/19 07:49 36.7 C 63 18 130/74 97 10/07/19 05:20 67 10/07/19 04:07 36.6 C 65 18 136/74 97 (1) Sepsis Sepsis acute organ dysfunction status: unspecified Sepsis type: sepsis due to unspecified organism Qualified Code(s): A41.9 - Sepsis, unspecified organism
[2019-10-07] MEDS ORDERED: cephALEXin 500 MG CAP PO SCH (16:00)
--- NOTE | 2019-10-07 16:01 | Discharge Summary ---
Date of Service October 07, 2019 Admission HPI Per Admitting Provider HISTORY OF PRESENT ILLNESS: This is an 89-year-old female with past medical history significant for history of sepsis, UTI, metabolic encephalopathy in the recent admission in August, history of paroxysmal atrial fibrillation, history of CAD, hypertension, hypothyroidism, depression, history of DVT, nonobstructive CAD, chronic kidney disease stage III, resident of [facility], wheelchair bound, comes in because of last few days of getting more confused, lethargic, had a low-grade temperature today and poor appetite and was brought in here and found to have UTI and sepsis. Daughter in the room, the patient is otherwise alert and oriented as per the daughter and she is on regular diet and she eats okay. Currently, very hard of hearing, she did not have any hearing aids. She can tell her name, knows that she is in the hospital, knows this is September, but could not tell her date of , but could not tell the year. The patient denies any headache, denies any cough, denies any nausea, denies abdominal pain. Denies any burning micturition. Denies any chest pain. Could not get much history from the patient. On her last admission, she has had her gallbladder taken out and the surgical sites are healed well. Blood pressure somewhat on the lower side. Lactic acid is 2.6. White count is 16, creatinine is 1.5, INR 1.5. Procalcitonin is 2.5. Urinalysis positive. Chest x-ray is unremarkable. CT head unremarkable. Admission Exam Per Admitting Provider GENERAL: The patient is alert and awake, not in acute distress, old and frail. VITAL SIGNS: Temperature 36.7, pulse 61, respiratory rate 18, blood pressure 86/40, oxygen 96% room air. HEENT: No pallor, no icterus. Pupils equal, round, reactive to light. NECK: No JVD, no neck masses, no carotid bruits. CARDIOVASCULAR: S1, S2 heard, regular rate and rhythm, no murmur, no gallop. RESPIRATORY SYSTEM: Normal AP diameter. No accessory muscle use. No wheezing. No crackles. ABDOMEN: Soft, bowel sounds present, nontender. No distention. CENTRAL NERVOUS SYSTEM: Alert and awake, oriented to name and place, obeys simple commands. Moves extremities. EXTREMITIES: No edema, no erythema. Principal Diagnosis Sepsis Urinary tract infection Metabolic encephalopathy Acute Kidney injury Elevate CK level Hypokalemia paroxysmal atrial fibrillation Gastroesophageal reflux disease Depression Discharge Exam General- No acute distress Head- atraumatic Eyes- PERRL, EOMI, ENT- oropharynx clear Neck- supple, no JVD Lungs- clear to auscultation Heart- regular rhythm; no murmur Abdomen- normal bowel sounds, soft, nontender Extremities- no calf tenderness Neuro- alert, oriented x 3; PERRL, EOMI; no facial palsy; no dysarthria Skin- warm & dry Discharge Data Allergies Allergy/AdvReac Type Severity Reaction Status Date / Time omeprazole Allergy Unknown distal Verified 10/02/19 20:42 edema-none with pantoprozole Consultations 10/02/19 21:30 ED Decision to Admit Stat 10/02/19 23:31 Consult Case Management - Discharge Planning Routine 10/04/19 09:03 Consult Infectious Diseases Routine Ordered Studies 10/02/19 19:29 CT head/brain wo con Stat XR chest 1V portable CLINICAL HISTORY: Sepsis dyspnea COMPARISON STUDY: 08/08/2019 FINDINGS: The bones soft tissues and hemidiaphragms are normal. The cardiomediastinal silhouette is normal. The lungs are clear. The pulmonary vasculature is normal. IMPRESSION: Negative chest. The above report was generated using voice recognition software. It may contain grammatical, syntax or spelling errors. Electronically signed by: Ross Cabral M.D. 10/02/2019 8:07 PM Dictated: 10/02/192006 Transcribed: 10/02/192006 CT head/brain wo con CT DOSE: 638.56 mGycm HISTORY: Mental status change. confusion TECHNIQUE: Multiaxial CT images of the head were performed without the use of intravenous contrast. A dose lowering technique was utilized adhering to the principles of ALARA. Comparison: None. Findings: The paranasal sinuses and mastoid air cells are clear. Findings of atrophy and chronic small vessel change. Mild compensatory ventricular prominence. Density characteristics are unchanged compared to the prior study. Small old left cerebellar infarct. No midline shift. Impression: No acute intracranial abnormality. Chronic and age-related change. The above report was generated using voice recognition software. It may contain grammatical, syntax or spelling errors. Electronically signed by: Ross Cabral M.D. 10/02/2019 8:28 PM Dictated: 10/02/192025 Transcribed: 10/02/192025 XR cervical spine 2 or 3V CLINICAL HISTORY: neck pain COMPARISON STUDY: Cervical spine CT 02/24/2019. FINDINGS: The cervical spine is visualized from C1 through C7. Straightening of the cervical spine. Mild anterolisthesis of C3 on C4 and C4 and C5, unchanged. Mild disc space narrowing at C2-C3 and severe disc space narrowing at C6-C7 with small endplate osteophytes. This is also unchanged. Moderate facet degenerative changes throughout the majority of the cervical spine. Prevertebral soft tissues and the C1-C2 interval are intact. IMPRESSION: 1. No fractures within the visualized cervical spine. 2. Degenerative changes as described above. This is similar to the prior study. Electronically signed by: Carlos Ferguson M.D. 10/07/2019 2:28 PM Dictated: 10/07/191418 Transcribed: 10/07/191418 Hospital Course (1) Sepsis: UTI Bacteremia Present on admission with altered mental status Lactic acidosis, Leukocytosis and elevated procalcitonin on admission Received empiric cefepime on admission lactic acid of 2.6 on admission has normalized after IV fluids and antibiotics. Urine cx and blood cx on 10/02 grew klebsiella pneumonia Was starting on Zosyn IV on 10/03 ID on board changed Zosyn to Ancef Repeat Blood cx no growth Will discharge on Keflex to complete 14 days course abx Metabolic encephalopathy Due acute infection (Above) CT head showed no acute intracranial abnormality Resolved Acute Kidney injury Creatinine 1.5 on admission Creatinine downtrended with IV fluids on this admission Creatinine 0.7 today Resolved Elevate CK level Creatinine kinase 438 on 10/03/19, creatinine kinase 285 on 10/04/19, trend creatinine kinase Resolved Hypokalemia K stable History of left hydronephrosis in last admission No further workup as per urology as per last discharge summary notes. History of cholelithiasis with acute cholecystitis without obstruction during last admission status post ERCP and laparoscopic cholecystectomy on August 10, 2019 paroxysmal atrial fibrillation History of deep vein thrombosis in the past currently normal sinus rhythm INR 3.6 today Continue Toprol-XL Coumadin held yesterday and today Will resume coumadin on discharge Neck Tenderness Mostly due to Arthritis Denies any fall/trauma Neck Xray showed no fractures within the visualized cervical spine. Degenerative changes as described above. This is similar to the prior study. Continue tylenol prn Gastroesophageal reflux disease Continue Protonix. Depression Continue Remeron and Lexapro DVT px INR 3.6 today Will hold coumadin for today CODE STATUS DNR Disposition Will discharge today Total Time Total Time Spent Total Time Spent (In Minutes): 35 minutes Total Time Includes: Examination of the Patient, Discharge Planning, Medication Reconciliation, Communication With Other Providers and Other Discharge Plan Discharge Items Patient Disposition: Personal [facility] Reason For Visit: MAs, LETHARGY Discharge Diagnosis: Sepsis Urinary tract infection Metabolic encephalopathy Acute Kidney injury Elevate CK level Hypokalemia paroxysmal atrial fibrillation Gastroesophageal reflux disease Depression Activity: Resume your previous activity Activity Comment: As tolerated Non-emergency contact: Primary Care Provider Call non-emergency contact if: you have any medication questions Follow-up/Referrals: MAURICE ESPINOSA [Primary Care Provider] - Diet: Heart Healthy Addtl Attending Provider Instructions: Follow up appointment with your primary care provider Dr. Valle on 10/11 @ 1PM Follow up with the coumadin clinic Monitor PT/INR Complete the course of antibiotic with keflex Fall precaution Pending Studies at Discharge: No Stand-Alone Forms: [employer], Smoking Cessation Skilled Items Patient informed of condition?: Yes DNR: Yes Discharge Level of Care: Other Communicable Disease: No Discharge Prognosis: Stable Lines: None Urinary Catheter: No Medications and DC Order Prescriptions: New cephalexin [Keflex] 500 mg capsule 500 mg PO BID 10 Days Qty: 20 RF: 0 Continued pantoprazole [Protonix] 40 mg Tablet,Delayed Release (Dr/Ec) 40 mg PO QAM Qty: 0 RF: 0 mirtazapine 15 mg Tablet 15 mg PO HS Qty: 0 RF: 0 acetaminophen 325 mg Tablet 650 mg PO Q4H PRN (Reason: Pain) Qty: 0 RF: 0 gabapentin 100 mg Capsule 100 mg PO HS Qty: 0 RF: 0 ferrous sulfate 325 mg (65 mg iron) Tablet 325 mg PO BID 30 Days Qty: 60 RF: 3 warfarin 2 mg tablet 2 mg PO UD RF: 0 warfarin 1 mg tablet 1 mg PO UD RF: 0 metoprolol succinate 25 mg tablet extended release 24 hr 12.5 mg PO DAILY RF: 0 potassium chloride [Klor-Con M10] 10 mEq Tablet,Er Particles/Crystals 10 meq PO DAILY Qty: 30 RF: 1 alendronate 70 mg tablet 70 mg PO WK RF: 0 escitalopram oxalate 20 mg tablet 20 mg PO QAM RF: 0 Discharge Orders: Discharge Order (Routine); Ordered 10/07/19 Ordered By: Sunitha Perez Admission Data Admit Date/Time: 10/02/19 22:40 Attending Provider: Sunitha Perez Admit Provider: Jeremi Mckenzie Primary Care Provider: MAURICE ESPINOSA Other Providers: Jeremi Mckenzie ; Chantel Cardenas ; Ricki Soliz
== END 2019-10-07 17:30 | disposition home or self-care (01) | DRG 871 ==
LOC: ED 19:21 → 2N 22:40 → SUATTDRO 22:40 → 2N 23:00

== ENCOUNTER 2019-12-07 10:57 | Inpatient (IN) ==
[2019-12-07 11:32] LABS: Appearance Urine Turbid (Clear); Bacteria Urine Automated 4+ (Negative); Bilirubin Urine Negative (Negative); Blood Urine 3+ (Negative); Color Urine Orange; Epithelial Cell Urine Auto >30 /lpf (0-5); Glucose Urine UA Negative (Negative); Ketones Urine Negative (Negative); Leukocyte Esterase Urine 3+ (Negative); Nitrite Urine Positive (Negative); Protein Urine 2+ (Negative); RBC Urine Automated >30 /hpf (0-4); Specific Gravity Urine 1.013 (1.000-1.030); Urobilinogen Urine Negative (Negative); WBC Urine Automated >30 /hpf (0-5)
[2019-12-07] MEDS ORDERED: SODIUM CHLORIDE 0.9% 1000ML 1,000 ML IV ONE (13:20)
[2019-12-07] MEDS ORDERED: CEFEPIME 2,000 MG/20 ML VIAL IV STA (13:22)
[2019-12-07 13:32] LABS: Basophils # (auto) 0.02 K/uL (0-0.2); Basophils % (auto) 0.3 %; Eosinophils # (auto) 0.14 K/uL (0-0.5); Hematocrit (blood only) 37.6 % (37-47); Hemoglobin 12.2 g/dL (12.0-16.0); Immature Granulocytes # (auto) 0.01 K/uL (0.00-0.02); Immature Granulocytes % (auto) 0.1 %; Lymphocytes # (auto) 1.32 K/uL (1.2-3.4); Mean Corpuscular Hemoglobin 33.4 pg (25-34); Mean Corpuscular Hgb Conc 32.4 g/dL (32-36); Mean Platelet Volume 9.2 fL (7.4-10.4); Monocytes # (auto) 0.62 K/uL (0.11-0.59); Monocytes % (auto) 8.9 %; Neutrophils # (auto) 4.85 K/uL (1.4-6.5); Neutrophils % (auto) 69.7 %; Platelet Count 171 K/uL (130-400); RDW Standard Deviation 52.7 fL (36.4-46.3); Red Blood Count 3.65 M/uL (4.2-5.4); White Blood Count 6.96 K/uL (4.8-10.8)
[2019-12-07 13:51] LABS: Prothrombin Time 42.9 Seconds (9.0-12.0)
[2019-12-07 13:54] LABS: INR 4.7 (0.9-1.1)
--- NOTE | 2019-12-07 13:55 | XRay Report ---
XR chest 1V portable CLINICAL HISTORY: ams, weakness COMPARISON STUDY: Chest radiograph October 02, 2019. FINDINGS: Lung volumes are normal. Lungs are clear. There is no pneumothorax or pleural effusion. Car diac size is normal. Mediastinal contours are normal. There is no evidence for pulmonary edema. IMPRESSION: No acute cardiopulmonary findings. ACT 112: Negative or not required by law. Electronically signed by: Curtis Lamar M.D. 12/07/2019 1:54 PM
[2019-12-07 13:56] LABS: Alanine Aminotransferase 12 U/L (12-78); Albumin Level 2.8 gm/dl (3.4-5.0); Aspartate Aminotransferase 12 U/L (15-37); BUN Creatinine Ratio 15.4 (10-20); Blood Urea Nitrogen 16 mg/dl (7-18); Calcium 9.1 mg/dl (8.5-10.1); Carbon Dioxide 29 mmol/L (21-32); Chloride 108 mmol/L (98-107); Creatinine Clr Calc Pharmacy 30.4 ml/min; Est GFR (African American) 57.3; Est GFR (Non-African American) 49.4; Glucose 90 mg/dl (70-99); Potassium 3.7 mmol/L (3.5-5.1); Sodium 142 mmol/L (136-145)
[2019-12-07 14:01] LABS: Albumin Globulin Ratio 0.7 (0.9-2); Alkaline Phosphatase 82 U/L (45-117); Bilirubin,Total 0.8 mg/dl (0.2-1); Globulin 4.1 gm/dl (2.5-4.0); Total Protein 6.9 gm/dl (6.4-8.2); Troponin I < 0.015 ng/ml (0-0.045)
--- NOTE | 2019-12-07 14:38 | CT Scan Report ---
CT abd pelvis wo con CLINICAL HISTORY: 89 years-old Female presenting with hematuria, back pain, uti. TECHNIQUE: Multidetector CT of the abdomen and pelvis was performed without the use of intravenous co ntrast. IV contrast: None. One or more dose lowering techniques were used consistent with the princip les of ALARA (as low as reasonably achievable), including automatic exposure control, mA or kV adjust ment to individual patient size, and/or use of iterative reconstruction. COMPARISON: 08/13/2019. CT DOSE (mGy.cm): The estimated cumulative dose is 280.35 mGy.cm. FINDINGS: Electronic Assembler topogram: Lumbar fusion hardware and total left hip arthroplasty. Lung bases: Normal heart size. Coronary artery calcification. No pericardial or pleural effusion. Min imal dependent changes likely atelectasis. Liver: Normal morphology. Normal density. Biliary: Mild biliary ductal prominence likely a reservoir effect in the post cholecystectomy state. Gallbladder surgically absent. Pancreas: Moderate parenchymal atrophy. Pancreatic ductal gas is also evident. Spleen: Normal noncontrast appearance. Adrenal glands: Normal noncontrast appearance. Kidneys and ureters: Multiple dominant calcifications in the left kidney at least one of which repres ents a nonobstructing calculus at the lower pole measuring 10 mm. Mild pelvocaliectasis of the left k idney with urothelial thickening dilatation of the left ureter no gross evidence of an obstructing ca lculus or mass allowing for degraded evaluation of the distal ureter due to regional streak artifact arising from the left hip arthroplasty. Normal noncontrast appearance of the right kidney though ther e may be trace right urothelial thickening at the renal pelvis. The right ureters nondistended. Bladder: Circumferential bladder wall thickening. Degraded evaluation due to regional streak artifact . Pelvic organs: Normal noncontrast appearance. Degraded evaluation due to streak artifact. Bowel: Mild stool burden throughout normal caliber colon. The appendix is not identified. No bowel ob struction. Peritoneal cavity: No free fluid or intraperitoneal gas. Lymph nodes: No gross lymphadenopathy allowing for noncontrast technique. Vasculature: Atherosclerosis of the normal caliber abdominal aorta. Abdominal wall: Normal. Musculoskeletal: Posterior lumbar fusion hardware with laminectomy defects. Total left hip arthroplas ty. Resulting regional streak artifact in the left hemipelvis degrades evaluation of pelvic viscera. IMPRESSION: 1. Nonobstructing left nephrolithiasis. 2. There is mild left pelvocaliectasis and distention of the left ureter without gross evidence of a n obstructing etiology within the visualized portion. However, significant limitations in assessment of the distal left ureter due to regional streak artifact. It is difficult to exclude calculus or mas s in the distal left ureter. As such, hydroureteronephrosis, be excluded. Urologic consultation for p ossible ureteroscopy to be considered. 3. The presence of urothelial thickening in the urinary collecting systems, left greater than right, can be seen in the setting of chronic irritation related to nephrolithiasis, reflux uropathy, or, le ss likely, in the setting of upper tract infection. Correlate with urinalysis. 4. Circumferential bladder wall thickening concerning for cystitis, likely infectious or inflammator y. Again, correlate with urinalysis. 5. Pneumobilia and gas within the pancreatic duct is new from the prior exam and likely relates to a n incompetent sphincter of Oddi or sphincterotomy. ACT 112: Negative or not required by law. Electronically signed by: Artem Mars M.D. 12/07/2019 2:37 PM
--- NOTE | 2019-12-07 15:05 | History & Physical Report ---
Date of Service December 07, 2019 Assessment & Plan (1) UTI (urinary tract infection): This is a 89-year-old female from [facility] with a PMH of recurrent UTI growing Klebsiella, paroxysmal atrial fibrillation and history of DVT on Coumadin, nonobstructive CAD, hypertension, CKD III and other medical problems listed below who presents with altered mental status and fatigue starting this morning and was found to have UTI. -Presenting with fatigue, possible confusion that has since resolved, some dysuria. Chronic urinary incontinence -UA grossly abnormal with positive leuk esterase, nitrite, 3+ blood, 4+ bacteria -History of recurrent UTI, most recently grew Klebsiella on urine culture in late Sep 2019 -Treating empirically with cefepime, awaiting culture results -CT abd/pelvis with nonobstructing left nephrolithiasis and mild left pelvocaliectasis and distention of the left ureter without gross evidence of an obstructing etiology. However, significant limitations in assessment of the distal left ureter due to regional streak artifact. It is difficult to exclude calculus or mass in the distal left ureter -Bladder scan q shift, monitor output closely. Consider urology consult for possible ureteroscopy (2) Supratherapeutic INR: INR of 4.7, recently had coumadin dose increased to 3.5mg daily- last dose yesterday afternoon -UA with 3+ blood but no mayito blood in urine sample, so will not give vitamin K for reversal at this time -Monitor closely for hematuria. Hold coumadin, monitor INR daily (3) Paroxysmal atrial fibrillation: EKG with normal sinus rhythm -Continue Toprol -Holding coumadin in setting of supratherapeutic INR (4) HTN (hypertension): Normotensive at 119/59 -Continue Toprol with hold parameters (5) Anxiety: (6) Depression: Continue SSRI DVT Ppx: SCDs, holding coumadin with supratherapeutic INR Code status: DNR per chart review, discussion with patient PCP: Vinnie Dispo: Admitted to med/surg. Discharge planning ordered to coordinate return to [facility] once medically appropriate. Patient seen in collaboration with Dr. Conde. Please see addendum. History of Present Illness Chief Complaint: Altered mental status, urinary symptoms Primary Care Provider: [facility] This is a 89-year-old female from [facility] in [place] with a PMH of recurrent UTI growing Klebsiella, paroxysmal atrial fibrillation and history of DVT on Coumadin, nonobstructive CAD, hypertension, CKD III and other medical problems listed below who presents with altered mental status and fatigue starting this morning. Per discussion with [facility] staff, patient was in normal state of health until this morning when she seemed confused, fatigued and less alert. At baseline, patient is alert and oriented x3 with urinary incontinence, requiring 2 person assist with ambulation. Has history of recurrent UTI, most recently growing Klebsiella on urine culture with gram negative bacteremia. Treated with Zosyn initially, then changed to Ancef per ID with discharge on 14 day course of Keflex. Currently, patient is alert and oriented x3. Remembers feeling fatigued this morning with some dysuria. Decreased PO intake for past few days. Denies any confusion, lightheadedness, visual changes, fever, chills, chest pain, palpitations, shortness of breath, nausea, vomiting, abdominal pain, diarrhea or constipation. Has had hematuria in the past but denies any today. Nursing staff states that urinary output was yellow, no blood in urine. Did not receive any AM medications. Allergies Allergy/AdvReac Type Severity Reaction Status Date / Time omeprazole Allergy Unknown distal Verified 12/07/19 11:41 edema-none with pantoprozole Home Medications Home Medications Medication Instructions Recorded Confirmed Type pantoprazole [Protonix] 40 mg PO DAILY@1200 #0 12/27/15 12/07/19 History acetaminophen 650 mg PO Q4H PRN #0 01/08/17 12/07/19 History mirtazapine 15 mg PO HS #0 tab 01/08/17 12/07/19 History gabapentin 100 mg PO HS #0 03/10/18 12/07/19 History ferrous sulfate 325 mg PO BID 30 Days #60 tab 04/08/18 12/07/19 History alendronate 70 mg PO WE 02/24/19 12/07/19 History escitalopram oxalate 20 mg PO DAILY@1200 02/24/19 12/07/19 History metoprolol succinate 12.5 mg PO DAILY@1200 08/08/19 12/07/19 History potassium chloride [Klor-Con M10] 10 meq PO DAILY@1200 12/07/19 12/07/19 History tramadol 50 mg PO Q4H PRN 12/07/19 12/07/19 History warfarin 3.5 mg PO DAILY@1600 12/07/19 12/07/19 History Past Med/Surg History Medical History Anticoagulated on Coumadin (Chronic) CAD (coronary artery disease) (Chronic) Chronic pain (Chronic) Depression (Deleted) GERD (gastroesophageal reflux disease) History of DVT (deep vein thrombosis) HLD (hyperlipidemia) HTN (hypertension) (Chronic) Hypothyroidism (Chronic) Migraines Nephrolithiasis (Chronic) NSTEMI (non-ST elevated myocardial infarction) (Resolved) OAB (overactive bladder) (Chronic) Osteoarthritis (Chronic) Paroxysmal atrial fibrillation (Chronic) Sciatica (Chronic) Supratherapeutic INR (Acute) Surgical History H/O lithotripsy (Chronic) 05/29/18. LMA #4. H/O total hip arthroplasty (Chronic) History of appendectomy (Chronic) History of cataract surgery (Chronic) History of lumbar surgery (Chronic) History of total hip arthroplasty (Chronic) LEFT History of total knee replacement (Chronic) RIGHT Family History Mother , 70 Pancreatic cancer Father Coronary heart disease Social History Preferred Language: Jordanian Communication Ability: Effective Tack Picker Required: No Beliefs That Will Affect Care: None marital status: / Current Living Situation: Personal Care Facility Current Living Situation Comment: [facility] Feels Safe at Home: Yes Smoking Status: Unknown if ever smoked Hx Alcohol Use: No Hx Substance Use: No Review of Systems Review of Systems: At least ten systems reviewed and negative except as noted in the HPI. Physical Exam Physical Exam: General Appearance: WD/WN, vitals as above, NAD, lying in bed, pleasant, conversing easily Head: normocephalic, atraumatic Eyes: normal inspection, PERRL, conjunctivae normal, anicteric sclerae ENT: external ear and nose normal, oropharynx normal Neck: trachea midline, no thyromegaly normal visual inspection Respiratory: lungs clear to auscultation, no wheeze, rales, rhonchi. Normal insp/exp effort, no accessory muscle use Cardiovascular: regular rate, rhythm, no murmur, normal peripheral pulses. Vessels: no JVD or carotid bruit Chest: normal inspection of chest Abdomen/GI: normal bowel sounds, soft, nontender, no hepatosplenomegaly Extremities/Musculoskelatal: no cyanosis or clubbing, extremities motor strength 5/5 Neurologic: PERRL, EOMI, accommodation nl, no face palsy, no dysarthria, CN's II-XI intact bilaterally and moves all extremities Psychiatric: A+Ox4, euthymic affect Skin: no rashes, normal color, warm/dry Results & Data Vital Signs (Past 12 Hours) Vital Signs Temp Pulse Resp BP Pulse Ox 12/07/19 14:31 61 15 12/07/19 14:30 61 13 119/59 L 12/07/19 14:28 62 21 117/56 L 12/07/19 14:00 59 L 16 117/56 L 92 12/07/19 13:31 61 16 94 12/07/19 13:30 64 18 105/59 L 95 12/07/19 13:01 64 19 93 12/07/19 13:00 66 19 116/61 93 12/07/19 12:31 71 17 92 12/07/19 12:30 66 18 102/59 L 92 12/07/19 12:01 66 20 92 12/07/19 12:00 66 21 117/62 91 12/07/19 11:31 68 21 90 12/07/19 11:30 69 23 113/64 91 12/07/19 11:08 37.2 C 73 18 117/60 117 H 12/07/19 11:06 73 19 117/60 92 12/07/19 11:04 79 23 12/07/19 10:57 85 14 104/59 L Laboratory Results Short CBC 12/07/19 Range/Units 13:15 WBC 6.96 (4.8-10.8) K/uL Hgb 12.2 (12.0-16.0) g/dL Hct 37.6 (37-47) % Plt Count 171 (130-400) K/uL BMP 12/07/19 13:15 Sodium 142 Potassium 3.7 Chloride 108 H Carbon Dioxide 29 BUN 16 Creatinine 1.02 Glucose 90 Calcium 9.1 Cardiac Enzymes 12/07/19 Range/Units 13:15 Troponin I < 0.015 (0-0.045) ng/ml Liver Function 12/07/19 Range/Units 13:15 Total Bilirubin 0.8 (0.2-1) mg/dl AST 12 L (15-37) U/L ALT 12 (12-78) U/L Alkaline Phosphatase 82 (45-117) U/L Albumin 2.8 L (3.4-5.0) gm/dl Urine 12/07/19 Range/Units 11:12 Urine Color Vici Urine Appearance Turbid A (Clear) Urine pH 6.0 (4.5-7.5) Ur Specific [place] 1.013 (1.000-1.030) Urine Protein 2+ H (Negative) Urine Glucose (UA) Negative (Negative) Diagnostic Findings CXR: IMPRESSION: No acute cardiopulmonary findings. CT abd/pelvis: IMPRESSION: 1. Nonobstructing left nephrolithiasis. 2. There is mild left pelvocaliectasis and distention of the left ureter without gross evidence of an obstructing etiology within the visualized portion. However, significant limitations in assessment of the distal left ureter due to regional streak artifact. It is difficult to exclude calculus or mass in the distal left ureter. As such, hydroureteronephrosis, be excluded. Urologic consultation for possible ureteroscopy to be considered. 3. The presence of urothelial thickening in the urinary collecting systems, left greater than right, can be seen in the setting of chronic irritation related to nephrolithiasis, reflux uropathy, or, less likely, in the setting of upper tract infection. Correlate with urinalysis. 4. Circumferential bladder wall thickening concerning for cystitis, likely infectious or inflammatory. Again, correlate with urinalysis. 5. Pneumobilia and gas within the pancreatic duct is new from the prior exam and likely relates to an incompetent sphincter of Oddi or sphincterotomy. Code Status & VTE Plan VTE Prophylaxis Plan VTE Prophylaxis will be ordered: Yes Supervising Physician Co-Signing Physician Notes Attending addendum: The patient was seen and examined in medical floor in presence of the son She complains of some headache but denies any other symptoms She gets acute confusion with infection and that was confirmed by the son On examination Lying in bed comfortably Hemodynamically stable Chest-clear to auscultate bilaterally Heart-S1-S2 regular Abdomen-benign, no tenderness in the hypogastrium or in renal angles Extremities-negative for any edema CLIENT SUCCESS SPECIALIST-alert and awake, no focal neuro deficit Admission labs and imaging studies reviewed Likely has UTI and has been started with antibiotic Agree with assessment and plan as outlined above by ROSSI Odonnell Dr (1) Depression Depression Type: unspecified Qualified Code(s): F32.9 - Major depressive disorder, single episode, unspecified
--- NOTE | 2019-12-07 15:51 | Electrocardiogram Report ---
Test Reason : Blood Pressure : / mmHG Vent. Rate : 062 BPM Atrial Rate : 062 BPM P-R Int : 190 ms QRS Dur : 062 ms QT Int : 448 ms P-R-T Axes : 032 -06 007 degrees QTc Int : 454 ms Normal sinus rhythm Low voltage QRS Nonspecific ST abnormality Abnormal ECG When compared with ECG of 02-OCT-2019 21:07, Nonspecific T wave abnormality now evident in Inferior leads Confirmed by Christian Nuñez ([id number]) on 12/07/2019 3:50:35 PM Referred By: REFERRED SELF Confirmed By:Christian Nuñez
[2019-12-07] MEDS ORDERED: TRAMADOL HCL 50 MG TABLET PO PRN (16:32)
[2019-12-07] MEDS ORDERED: SODIUM CHLORIDE 0.9% 1000ML 1,000 ML IV SCH (16:32)
[2019-12-07] MEDS ORDERED: POLYETHYLENE (MIRALAX) 17 GM PACK PO PRN (16:32)
[2019-12-07] MEDS ORDERED: CEFEPIME CONSULT ACTIVE PRN (16:38)
--- NOTE | 2019-12-07 16:54 | Emergency Department Note ---
Entered by Prachi Sandhu acting as a scribe for Renzo Newsome M.D. History of Present Illness General Chief complaint: Hematuria Time Seen by Provider: 12/07/19 13:07 Source: patient Limitations: altered mental status History of Present Illness Onset (ago): day(s) (this morning) Location: back Pain Consistency: + other (episode) Quality: + other (hematuria) Associated symptoms: + other (back pain, lethargic) The patient is an 89 year old female who presents to the Emergency Room with complaints of an episode of hematuria starting this morning. Per nursing staff, the patient is altered at baseline. They report that her home sent her in b ecause she was more lethargic than normal this morning. They note that she was also complaining of lower back pain and they noticed blood in her urine, so they sent her in. HPI and ROS are limited secondary to altered mental status. Home Medications Home Medications Medication Instructions Recorded Confirmed Type pantoprazole [Protonix] 40 mg PO DAILY@1200 #0 12/27/15 12/07/19 History acetaminophen 650 mg PO Q4H PRN #0 01/08/17 12/07/19 History mirtazapine 15 mg PO HS #0 tab 01/08/17 12/07/19 History gabapentin 100 mg PO HS #0 03/10/18 12/07/19 History ferrous sulfate 325 mg PO BID 30 Days #60 tab 04/08/18 12/07/19 History alendronate 70 mg PO WE 02/24/19 12/07/19 History escitalopram oxalate 20 mg PO DAILY@1200 02/24/19 12/07/19 History metoprolol succinate 12.5 mg PO DAILY@1200 08/08/19 12/07/19 History potassium chloride [Klor-Con M10] 10 meq PO DAILY@1200 12/07/19 12/07/19 History tramadol 50 mg PO Q4H PRN 12/07/19 12/07/19 History warfarin 3.5 mg PO DAILY@1600 12/07/19 12/07/19 History Allergies Allergy/AdvReac Type Severity Reaction Status Date / Time omeprazole Allergy Unknown distal Verified 12/07/19 11:41 edema-none with pantoprozole Past Med/Surg History Medical History Anticoagulated on Coumadin (Chronic) CAD (coronary artery disease) (Chronic) Chronic pain (Chronic) Depression (Deleted) GERD (gastroesophageal reflux disease) History of DVT (deep vein thrombosis) HLD (hyperlipidemia) HTN (hypertension) (Chronic) Hypothyroidism (Chronic) Migraines Nephrolithiasis (Chronic) NSTEMI (non-ST elevated myocardial infarction) (Resolved) OAB (overactive bladder) (Chronic) Osteoarthritis (Chronic) Paroxysmal atrial fibrillation (Chronic) Sciatica (Chronic) Supratherapeutic INR (Acute) Surgical History H/O lithotripsy (Chronic) 05/29/18. LMA #4. 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 Physical Exam Vital Signs Vital Signs - 24 hr 12/07/19 10:57 12/07/19 11:04 12/07/19 11:06 Temperature Temperature Source Pulse Rate 85 79 73 Pulse Rate from SpO2 Sensor 73 Respiratory Rate 14 23 19 Blood Pressure 104/59 L 117/60 Blood Pressure Mean 70 71 Pulse Oximetry 92 Oxygen Delivery Method Sepsis Recent Fever Within 48 Hours Sepsis Action Taken by Nursing 12/07/19 11:08 12/07/19 11:30 12/07/19 11:31 Temperature 37.2 C Temperature Source Oral Pulse Rate 73 69 68 Pulse Rate from SpO2 Sensor 69 68 Respiratory Rate 18 23 21 Blood Pressure 117/60 113/64 Blood Pressure Mean 79 74 Pulse Oximetry 117 H 91 90 Oxygen Delivery Method Room Air Sepsis Recent Fever Within 48 Hours No Sepsis Action Taken by Nursing No Action Required 12/07/19 12:00 12/07/19 12:01 12/07/19 12:30 Temperature Temperature Source Pulse Rate 66 66 66 Pulse Rate from SpO2 Sensor 66 66 66 Respiratory Rate 21 20 18 Blood Pressure 117/62 102/59 L Blood Pressure Mean 79 69 Pulse Oximetry 91 92 92 Oxygen Delivery Method Sepsis Recent Fever Within 48 Hours Sepsis Action Taken by Nursing 12/07/19 12:31 12/07/19 13:00 12/07/19 13:01 Temperature Temperature Source Pulse Rate 71 66 64 Pulse Rate from SpO2 Sensor 71 66 65 Respiratory Rate 17 19 19 Blood Pressure 116/61 Blood Pressure Mean 78 Pulse Oximetry 92 93 93 Oxygen Delivery Method Sepsis Recent Fever Within 48 Hours Sepsis Action Taken by Nursing 12/07/19 13:30 12/07/19 13:31 12/07/19 14:00 Temperature Temperature Source Pulse Rate 64 61 59 L Pulse Rate from SpO2 Sensor 63 61 60 Respiratory Rate 18 16 16 Blood Pressure 105/59 L 117/56 L Blood Pressure Mean 69 76 Pulse Oximetry 95 94 92 Oxygen Delivery Method Sepsis Recent Fever Within 48 Hours Sepsis Action Taken by Nursing 12/07/19 14:28 12/07/19 14:30 12/07/19 14:31 Temperature Temperature Source Pulse Rate 62 61 61 Pulse Rate from SpO2 Sensor Respiratory Rate 21 13 15 Blood Pressure 117/56 L 119/59 L Blood Pressure Mean 66 69 Pulse Oximetry Oxygen Delivery Method Sepsis Recent Fever Within 48 Hours Sepsis Action Taken by Nursing GENERAL: Awake, alert, well-appearing, in no distress. Pleasantly confused. Unable to provide a history. HENT: Normocephalic, atraumatic. EYES: Normal conjunctiva. Sclera non-icteric. NECK: Supple. No nuchal rigidity. RESPIRATORY: Clear to auscultation. No wheezes. Normal respiratory effort. CARDIAC: Normal rate. Normal rhythm. Extremities warm and well perfused. GI: Soft, non-distended. No tenderness to palpation. RECTAL: Deferred. MUSCULOSKELETAL: Atraumatic. Chest examination reveals no tenderness. LOWER EXTREMITIES: Calves are equal size bilaterally and non-tender. Trace pedal edema bilaterally. NEURO: Pleasantly confused. No sensory or motor deficits noted. No facial droop. SKIN: Warm and dry. No jaundice noted. Course Course 1311: The patient was evaluated in room C10. A complete history and physical exam was performed. 1322: I discussed the patient's case with her facility. They sent her in for increased lethargy and for not acting herself. 1444: I reevaluated the patient and she is stable. 1446: I discussed the patient's case with Maria Esther Davenport PA-C- [facility] Hospitalist. She will evaluate the patient for further management under Dr. Conde's service. Administered Medications Discontinued Medications Sodium Chloride (Nss 1000ml) 1,000 mls @ 999 mls/hr IV .Q1H1M ONE Stop: 12/07/19 14:20 Last Infusion: 12/07/19 15:04 Dose: 0 mls/hr Documented by: [id number] Admin: 12/07/19 13:57 Dose: 999 mls/hr Documented by: [id number] Cefepime HCl (Maxipime) 2,000 mg in 20 mls @ 5 mls/min IV NOW STA; Protocol Stop: 12/07/19 13:25 Last Admin: 12/07/19 14:25 Dose: 5 mls/min Documented by: [id number] Medical Decision Making Differential Diagnosis Differential Diagnosis includes but is not limited to dehydration, stroke, anemia, hypoglycemia, hyponatremia, hypernatremia, urinary tract infection, pneumonia, bronchitis, sepsis, gastroenteritis, additional abdominal pathology, metabolic abnormalities and infections. Medical Records Attestation: I reviewed the patient's medical records. Home Medications Current Medication List: was personally reviewed by me Laboratory Data Attestation: I reviewed the patient's lab results. Result diagrams: 12/07/19 13:15 12/07/19 13:15 Lab Results 12/07/19 12/07/19 12/07/19 Range/Units 11:12 13:15 13:15 WBC 6.96 (4.8-10.8) K/uL RBC 3.65 L (4.2-5.4) M/uL Hgb 12.2 (12.0-16.0) g/dL Hct 37.6 (37-47) % MCV 103.0 H (80-100) fL MCH 33.4 (25-34) pg MCHC 32.4 (32-36) g/dL RDW Std Deviation 52.7 H (36.4-46.3) fL RDW Coeff of Demetrio 14.0 (11.5-14.5) % Plt Count 171 (130-400) K/uL MPV 9.2 (7.4-10.4) fL Immature Gran % (Auto) 0.1 % Neut % (Auto) 69.7 % Lymph % (Auto) 19.0 % [place] % (Auto) 8.9 % Eos % (Auto) 2.0 % Baso % (Auto) 0.3 % Immature Gran # (Auto) 0.01 (0.00-0.02) K/uL Neut # (Auto) 4.85 (1.4-6.5) K/uL Lymph # (Auto) 1.32 (1.2-3.4) K/uL [place] # (Auto) 0.62 H (0.11-0.59) K/uL Eos # (Auto) 0.14 (0-0.5) K/uL Baso # (Auto) 0.02 (0-0.2) K/uL PT (9.0-12.0) Seconds INR (0.9-1.1) Sodium 142 (136-145) mmol/L Potassium 3.7 (3.5-5.1) mmol/L Chloride 108 H (98-107) mmol/L Carbon Dioxide 29 (21-32) mmol/L Anion Gap 5.0 (3-11) BUN 16 (7-18) mg/dl Creatinine 1.02 (0.6-1.2) mg/dl Est Cr Clr Drug Dosing 30.4 ml/min Est GFR ( Amer) 57.3 Est GFR (Non-Af Amer) 49.4 BUN/Creatinine Ratio 15.4 (10-20) Glucose 90 (70-99) mg/dl Lactate (0.4-2.0) mmol/L Calcium 9.1 (8.5-10.1) mg/dl Total Bilirubin 0.8 (0.2-1) mg/dl AST 12 L (15-37) U/L ALT 12 (12-78) U/L Alkaline Phosphatase 82 (45-117) U/L Troponin I < 0.015 (0-0.045) ng/ml Total Protein 6.9 (6.4-8.2) gm/dl Albumin 2.8 L (3.4-5.0) gm/dl Globulin 4.1 H (2.5-4.0) gm/dl Albumin/Globulin Ratio 0.7 L (0.9-2) Urine Color [place] Urine Appearance Turbid A (Clear) Urine pH 6.0 (4.5-7.5) Ur Specific [place] 1.013 (1.000-1.030) Urine Protein 2+ H (Negative) Urine Glucose (UA) Negative (Negative) Urine Ketones Negative (Negative) Urine Blood 3+ H (Negative) Urine Nitrite Positive A (Negative) Urine Bilirubin Negative (Negative) Urine Urobilinogen Negative (Negative) Ur Leukocyte Esterase 3+ H (Negative) Urine WBC (Auto) >30 H (0-5) /hpf Urine RBC (Auto) >30 H (0-4) /hpf U Hyaline Cast (Auto) 1-5 (0-5) /lpf U Epithel Cells (Auto) >30 H (0-5) /lpf Urine Bacteria (Auto) 4+ H (Negative) Urine Yeast Not Reportable 12/07/19 12/07/19 Range/Units 13:15 13:47 WBC (4.8-10.8) K/uL RBC (4.2-5.4) M/uL Hgb (12.0-16.0) g/dL Hct (37-47) % MCV (80-100) fL MCH (25-34) pg MCHC (32-36) g/dL RDW Std Deviation (36.4-46.3) fL RDW Coeff of Demetrio (11.5-14.5) % Plt Count (130-400) K/uL MPV (7.4-10.4) fL Immature Gran % (Auto) % Neut % (Auto) % Lymph % (Auto) % [place] % (Auto) % Eos % (Auto) % Baso % (Auto) % Immature Gran # (Auto) (0.00-0.02) K/uL Neut # (Auto) (1.4-6.5) K/uL Lymph # (Auto) (1.2-3.4) K/uL [place] # (Auto) (0.11-0.59) K/uL Eos # (Auto) (0-0.5) K/uL Baso # (Auto) (0-0.2) K/uL PT 42.9 H (9.0-12.0) Seconds INR 4.7 H (0.9-1.1) Sodium (136-145) mmol/L Potassium (3.5-5.1) mmol/L Chloride (98-107) mmol/L Carbon Dioxide (21-32) mmol/L Anion Gap (3-11) BUN (7-18) mg/dl Creatinine (0.6-1.2) mg/dl Est Cr Clr Drug Dosing ml/min Est GFR ( Amer) Est GFR (Non-Af Amer) BUN/Creatinine Ratio (10-20) Glucose (70-99) mg/dl Lactate 1.1 (0.4-2.0) mmol/L Calcium (8.5-10.1) mg/dl Total Bilirubin (0.2-1) mg/dl AST (15-37) U/L ALT (12-78) U/L Alkaline Phosphatase (45-117) U/L Troponin I (0-0.045) ng/ml Total Protein (6.4-8.2) gm/dl Albumin (3.4-5.0) gm/dl Globulin (2.5-4.0) gm/dl Albumin/Globulin Ratio (0.9-2) Urine Color Urine Appearance (Clear) Urine pH (4.5-7.5) Ur Specific [place] (1.000-1.030) Urine Protein (Negative) Urine Glucose (UA) (Negative) Urine Ketones (Negative) Urine Blood (Negative) Urine Nitrite (Negative) Urine Bilirubin (Negative) Urine Urobilinogen (Negative) Ur Leukocyte Esterase (Negative) Urine WBC (Auto) (0-5) /hpf Urine RBC (Auto) (0-4) /hpf U Hyaline Cast (Auto) (0-5) /lpf U Epithel Cells (Auto) (0-5) /lpf Urine Bacteria (Auto) (Negative) Urine Yeast Imaging Data Radiologist's Impression: Radiology results as stated below per my review and the radiologist's interpretation: XR chest 1V portable CLINICAL HISTORY: ams, weakness COMPARISON STUDY: Chest radiograph October 02, 2019. FINDINGS: Lung volumes are normal. Lungs are clear. There is no pneumothorax or pleural effusion. Cardiac size is normal. Mediastinal contours are normal. There is no evidence for pulmonary edema. IMPRESSION: No acute cardiopulmonary findings. ACT 112: Negative or not required by law. Electronically signed by: Curtis Lamar M.D. 12/07/2019 1:[address] abd pelvis wo con CLINICAL HISTORY: 89 years-old Female presenting with hematuria, back pain, uti. TECHNIQUE: Multidetector CT of the abdomen and pelvis was performed without the use of intravenous contrast. IV contrast: None. One or more dose lowering techniques were used consistent with the principles of ALARA (as low as reasonably achievable), including automatic exposure control, mA or kV adjustment to individual patient size, and/or use of iterative reconstruction. COMPARISON: 08/13/2019. CT DOSE (mGy.cm): The estimated cumulative dose is 280.35 mGy.cm. 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 Lung bases: Normal heart size. Coronary artery calcification. No pericardial or pleural effusion. Minimal dependent changes likely atelectasis. Liver: Normal morphology. Normal density. Biliary: Mild biliary ductal prominence likely a reservoir effect in the post cholecystectomy state. Gallbladder surgically absent. Pancreas: Moderate parenchymal atrophy. Pancreatic ductal gas is also evident. Spleen: Normal noncontrast appearance. Adrenal glands: Normal noncontrast appearance. Kidneys and ureters: Multiple dominant calcifications in the left kidney at least one of which represents a nonobstructing calculus at the lower pole measuring 10 mm. Mild pelvocaliectasis of the left kidney with urothelial thickening dilatation of the left ureter no gross evidence of an obstructing calculus or mass allowing for degraded evaluation of the distal ureter due to regional streak artifact arising from the left hip arthroplasty. Normal noncontrast appearance of the right kidney though there may be trace right urothelial thickening at the renal pelvis. The right ureters nondistended. Bladder: Circumferential bladder wall thickening. Degraded evaluation due to regional streak artifact. Pelvic organs: Normal noncontrast appearance. Degraded evaluation due to streak artifact. Bowel: Mild stool burden throughout normal caliber colon. The appendix is not identified. No bowel obstruction. Peritoneal cavity: No free fluid or intraperitoneal gas. Lymph nodes: No gross lymphadenopathy allowing for noncontrast technique. Vasculature: Atherosclerosis of the normal caliber abdominal aorta. Abdominal wall: Normal. Musculoskeletal: Posterior lumbar fusion hardware with laminectomy defects. Total left hip arthroplasty. Resulting regional streak artifact in the left hemipelvis degrades evaluation of pelvic viscera. IMPRESSION: 1. Nonobstructing left nephrolithiasis. 2. There is mild left pelvocaliectasis and distention of the left ureter without gross evidence of an obstructing etiology within the visualized portion. However, significant limitations in assessment of the distal left ureter due to regional streak artifact. It is difficult to exclude calculus or mass in the distal left ureter. As such, hydroureteronephrosis, be excluded. Urologic consultation for possible ureteroscopy to be considered. 3. The presence of urothelial thickening in the urinary collecting systems, left greater than right, can be seen in the setting of chronic irritation related to nephrolithiasis, reflux uropathy, or, less likely, in the setting of upper tract infection. Correlate with urinalysis. 4. Circumferential bladder wall thickening concerning for cystitis, likely i nfectious or inflammatory. Again, correlate with urinalysis. 5. Pneumobilia and gas within the pancreatic duct is new from the prior exam and likely relates to an incompetent sphincter of Oddi or sphincterotomy. ACT 112: Negative or not required by law. Electronically signed by: Artem Mars M.D. 12/07/2019 2:37 PM ECG Data Attestation: I personally reviewed and interpreted this ECG as follows: Indication: + back/shoulder pain and + other (lethargy) Rate (beats per minute): 62 Rhythm: + normal sinus ECG [place]: + Normal ECG ST segments: no ST depression and no ST elevation ECG Findings: no PVCs Blood Pressure Blood Pressure Findings: Low blood pressure Blood Pressure Disposition: further management by hospitalist JOHN Narrative Patient is an 89-year-old female with a past medical history of UTI, sepsis, NSTEMI, atrial fibrillation on Coumadin, back issues, CAD, hypothyroidism, small bowel obstruction, mental status issues presenting from his [facility] today with report of hematuria. They also report that she is at her baseline but was having back pain per EMS. Patient here is unable to significantly provide history. Did call discussed with facility. Urinalysis appears positive for UTI. Lactate basic labs, EKG, CT the abdomen pelvis were completed. History of Klebsiella UTI. Blood pressure has been approximately 100 systolic. Patient is a history of urinary sepsis back in October. CT the abdomen pelvis was completed given the report of hematuria to exclude kidney stone or other acute intra-abdominal pathology. Covered initially with cefepime. No significant leukocytosis luckily or lactate. Patient's INR is elevated 4.7. Again in discussion with facility report that she is not at her baseline. Hematuria likely combination of elevated INR as well as UTI. On Coumadin related to atrial fibrillation and DVT. Again covered with cefepime for antibiotics. CT scan shows mild left ureteral distention somewhat limited due to artifact. There is evidence of some inflammation and in this context to believe likely infectious. Patient is not having significant pain at this time and without an elevated lactate, leukocytosis, or fever do not feel this acutely represents septic stone and again some question as to if a stone even exist. Given the elevated INR the fact that she is not at her baseline with UTI and history of urosepsis do have some concern about her being on the early aspect of systemic infection. Feel that further observation overnight in the hospital is warranted. Discussed with the hospitalist. Will not acute reverse INR at this point. Impression & Plan UTI (urinary tract infection), Confusion, Hematuria, Elevated INR Discharge Plan Visit Data *Final* Discharge Date/Time: 12/07/19 15:45 Chief Complaint: Hematuria ED Provider: Renzo Newsome Discharge Problem: UTI (urinary tract infection), Confusion, Hematuria, Elevated INR Patient Disposition: Admitted As Inpatient Discharge Instructions Interventions: ED Discharge Assessment Last Done: 12/07/19 15:45 The freddie's documentation has been prepared under my direction and personally reviewed by me in its entirety. I confirm that the note above accurately reflects all work, treatment, procedures, and medical decision making performed by me.
[2019-12-07] MEDS: FERROUS SULFATE 325 MG TAB PO SCH (20:20)
[2019-12-07] MEDS: MIRTAZAPINE TAB 15 MG TAB PO SCH (20:20)
[2019-12-07] MEDS: GABAPENTIN 100 MG CAP PO SCH (20:20)
[2019-12-07] MEDS: ACETAMINOPHEN 325 MG TAB PO PRN (22:29)
[2019-12-08] MEDS: CEFEPIME 1,000 MG in SYRINGE 0 ML IV SCH ×2 (02:14→14:12)
[2019-12-08 07:04] LABS: Hematocrit (blood only) 32.9 % (37-47); Hemoglobin 10.5 g/dL (12.0-16.0); Mean Corpuscular Hemoglobin 33.1 pg (25-34); Mean Corpuscular Hgb Conc 31.9 g/dL (32-36); Mean Corpuscular Volume 103.8 fL (80-100); Mean Platelet Volume 9.3 fL (7.4-10.4); Platelet Count 163 K/uL (130-400); RDW Coefficient of Variation 14.1 % (11.5-14.5); RDW Standard Deviation 53.5 fL (36.4-46.3); Red Blood Count 3.17 M/uL (4.2-5.4); White Blood Count 5.37 K/uL (4.8-10.8)
[2019-12-08 07:16] LABS: Prothrombin Time 41.3 Seconds (9.0-12.0)
[2019-12-08 07:23] LABS: INR 4.5 (0.9-1.1)
[2019-12-08 07:26] LABS: BUN Creatinine Ratio 18.1 (10-20); Calcium 8.3 mg/dl (8.5-10.1); Creatinine Clr Calc Pharmacy 33.4 ml/min; Est GFR (Non-African American) 55.3; Potassium 3.7 mmol/L (3.5-5.1)
[2019-12-08] MEDS: PANTOprazole 40 MG TAB PO SCH (12:25)
[2019-12-08] MEDS: POTASSIUM CHLORIDE 10 MEQ TABCR PO SCH (12:25)
[2019-12-08] MEDS: FERROUS SULFATE 325 MG TAB PO SCH ×2 (12:25→20:42)
[2019-12-08] MEDS: METOPROLOL SUCC 25MG EXT REL TAB PO SCH (12:25)
[2019-12-08] MEDS: ESCITALOPRAM OXALATE 20 MG TAB PO SCH (12:26)
--- NOTE | 2019-12-08 18:12 | Hospitalist Progress Note ---
Date of Service December 08, 2019 Assessment & Plan (1) UTI (urinary tract infection): This is a 89-year-old female from [facility] in [place] with a PMH of recurrent UTI growing Klebsiella, paroxysmal atrial fibrillation and history of DVT on Coumadin, nonobstructive CAD, hypertension, CKD III and other medical problems listed below who presents with altered mental status and fatigue starting this morning and was found to have UTI. -Presenting with fatigue, possible confusion that has since resolved, some dysuria. Chronic urinary incontinence -UA grossly abnormal with positive leuk esterase, nitrite, 3+ blood, 4+ bacteria -History of recurrent UTI, most recently grew Klebsiella on urine culture in late Sep 2019 -Treating empirically with cefepime, awaiting culture results -CT abd/pelvis with nonobstructing left nephrolithiasis and mild left pelvocaliectasis and distention of the left ureter without gross evidence of an obstructing etiology. However, significant limitations in assessment of the distal left ureter due to regional streak artifact. It is difficult to exclude calculus or mass in the distal left ureter -Urine culture is growing gram-negative bacilli, further identification and sensitivity are pending -We will continue current antibiotic More confused at presentation Likely has metabolic encephalopathy in the setting of UTI, resolved Back to her baseline (2) Supratherapeutic INR: INR of 4.7, recently had coumadin dose increased to 3.5mg daily- last dose yesterday afternoon -UA with 3+ blood but no mayito blood in urine sample, so will not give vitamin K for reversal at this time -Monitor closely for hematuria. Hold coumadin, monitor INR daily -INR is 4.5 today on 12/08/2019 (3) Paroxysmal atrial fibrillation: EKG with normal sinus rhythm -Continue Toprol -Holding coumadin in setting of supratherapeutic INR (4) HTN (hypertension): Normotensive at 119/59 -Continue Toprol with hold parameters (5) Anxiety: (6) Depression: Continue SSRI DVT Ppx: SCDs, holding coumadin with supratherapeutic INR Code status: DNR per chart review, discussion with patient PCP: Vinnie Dispo: Admitted to med/surg. Discharge planning ordered to coordinate return to [facility] once medically appropriate. Remains stable and discussed with her son yesterday We will get PT and OT evaluation and possible discharge in a day or 2 Subjective 12/08/2019 The patient was seen and examined in medical She remains weak and lethargic and pleasantly confused Denies any acute symptoms Review of Systems Review of Systems: All systems reviewed and are unremarkable except as noted below Physical Exam Physical Exam: Lying in bed comfortably Constitutional: well developed and well nourished; no acute distress and not ill appearing Eyes: PERRL, conjunctivae normal, anicteric sclerae ENMT: external ear and nose normal, oropharynx normal Neck: trachea midline, no thyromegaly Respiratory: normal respiratory effort; no respiratory distress Auscult ation: lungs clear to auscultation bilaterally Cardiovascular: Rate/Rhythm: regular rate and regular rhythm Heart Sounds: no murmur Gastrointestinal (Abdomen): Inspection/Auscultation: abdomen normal to inspection and normal bowel sounds Percussion/Palpation: abdomen soft; abdomen nontender Musculoskeletal: No acute arthritis in any joints Neurologic: moves all extremities; no focal motor deficits Alert, awake and pleasantly confused Lymphatic: no cervical or axillary lymphadenopathy Results & Data ([facility]) Vital Signs (Past 12 Hours) Vital Signs Temp Pulse Resp BP Pulse Ox 12/08/19 14:54 36.5 C 71 18 95/50 L 97 12/08/19 11:55 62 113/68 12/08/19 07:30 36.5 C 64 18 121/69 93 Laboratory Results Short CBC 12/08/19 Range/Units 06:17 WBC 5.37 (4.8-10.8) K/uL Hgb 10.5 L (12.0-16.0) g/dL Hct 32.9 L (37-47) % Plt Count 163 (130-400) K/uL BMP 12/08/19 06:17 Sodium 145 Potassium 3.7 Chloride 114 H Carbon Dioxide 27 BUN 17 Creatinine 0.93 Glucose 84 Calcium 8.3 L Medications Administered Current Inpatient Medications Acetaminophen (Tylenol) 650 mg PO Q4H PRN PRN Reason: pain/fever Stop: 01/06/20 16:31 Last Admin: 12/07/19 22:29 Dose: 650 mg Documented by: Escitalopram Oxalate (Lexapro Tab) 20 mg PO DAILY@1200 [facility] Stop: 01/07/20 11:59 Last Admin: 12/08/19 12:26 Dose: 20 mg Documented by: Ferrous Sulfate (Feosol) 325 mg PO BID [facility] Stop: 01/06/20 20:59 Last Admin: 12/08/19 12:25 Dose: 325 mg Documented by: Gabapentin (Neurontin) 100 mg PO [facility] Stop: 01/06/20 20:59 Last Admin: 12/07/19 20:20 Dose: 100 mg Documented by: Cefepime HCl 1,000 mg/ Syringe 11.3 mls @ 5.5 mls/min IV Q12H [facility]; Protocol Stop: 12/18/19 01:59 Last Admin: 12/08/19 14:12 Dose: 5.5 mls/min Documented by: Metoprolol Succinate (Toprol Xl) 12.5 mg PO DAILY@1200 [facility] Stop: 01/07/20 11:59 Last Admin: 12/08/19 12:25 Dose: 12.5 mg Documented by: Mirtazapine (Remeron) 15 mg PO [facility] Stop: 01/06/20 20:59 Last Admin: 12/07/19 20:20 Dose: 15 mg Documented by: Miscellaneous Information (Cefepime Consult Active) 1 ea N/A UD PRN PRN Reason: Consult Stop: 01/06/20 16:37 Pantoprazole Sodium (Protonix) 40 mg PO DAILY@1200 [facility] Stop: 01/07/20 11:59 Last Admin: 12/08/19 12:25 Dose: 40 mg Documented by: Polyethylene Glycol (Miralax Powder Packet) 17 gm PO DAILY PRN PRN Reason: Constipation Stop: 01/06/20 16:31 Potassium Chloride (Klor-Con M10) 10 meq PO DAILY@1200 [facility] Stop: 01/07/20 11:59 Last Admin: 12/08/19 12:25 Dose: 10 meq Documented by: Tramadol HCl (Ultram) 50 mg PO Q4H PRN PRN Reason: Pain Stop: 01/06/20 16:31 (1) Depression Depression Type: unspecified Qualified Code(s): F32.9 - Major depressive disorder, single episode, unspecified
[2019-12-08] MEDS: GABAPENTIN 100 MG CAP PO SCH (20:42)
[2019-12-08] MEDS: MIRTAZAPINE TAB 15 MG TAB PO SCH (20:42)
[2019-12-09] MEDS: CEFEPIME 1,000 MG in SYRINGE 0 ML IV SCH (02:15)
[2019-12-09 07:30] LABS: Basophils # (auto) 0.02 K/uL (0-0.2); Basophils % (auto) 0.4 %; Eosinophils # (auto) 0.27 K/uL (0-0.5); Eosinophils % (auto) 5.4 %; Hematocrit (blood only) 34.1 % (37-47); Hemoglobin 11.3 g/dL (12.0-16.0); Immature Granulocytes # (auto) 0.01 K/uL (0.00-0.02); Immature Granulocytes % (auto) 0.2 %; Lymphocytes # (auto) 1.57 K/uL (1.2-3.4); Lymphocytes % (auto) 31.2 %; Mean Corpuscular Hemoglobin 33.2 pg (25-34); Mean Corpuscular Hgb Conc 33.1 g/dL (32-36); Mean Corpuscular Volume 100.3 fL (80-100); Mean Platelet Volume 8.8 fL (7.4-10.4); Monocytes # (auto) 0.49 K/uL (0.11-0.59); Monocytes % (auto) 9.7 %; Neutrophils # (auto) 2.68 K/uL (1.4-6.5); Neutrophils % (auto) 53.1 %; Platelet Count 185 K/uL (130-400); RDW Coefficient of Variation 13.6 % (11.5-14.5); RDW Standard Deviation 49.4 fL (36.4-46.3); White Blood Count 5.04 K/uL (4.8-10.8)
[2019-12-09 07:46] LABS: Prothrombin Time 28.5 Seconds (9.0-12.0)
[2019-12-09 08:08] LABS: BUN Creatinine Ratio 12.4 (10-20); Calcium 8.7 mg/dl (8.5-10.1); Creatinine Clr Calc Pharmacy 36.6 ml/min; Est GFR (African American) 71.4; Est GFR (Non-African American) 61.6; Potassium 3.1 mmol/L (3.5-5.1)
[2019-12-09] MEDS: METOPROLOL SUCC 25MG EXT REL TAB PO SCH (11:57)
[2019-12-09] MEDS: FERROUS SULFATE 325 MG TAB PO SCH ×2 (11:57→21:05)
[2019-12-09] MEDS: ESCITALOPRAM OXALATE 20 MG TAB PO SCH (11:57)
[2019-12-09] MEDS: POTASSIUM CHLORIDE 10 MEQ TABCR PO SCH (11:57)
[2019-12-09] MEDS: cephALEXin 500 MG CAP PO SCH ×2 (11:57→21:06)
[2019-12-09] MEDS: PANTOprazole 40 MG TAB PO SCH (11:57)
[2019-12-09] MEDS ORDERED: POTASSIUM CHLORIDE 20 MEQ TABCR PO STA (14:46)
--- NOTE | 2019-12-09 18:01 | Hospitalist Progress Note ---
Date of Service December 09, 2019 Assessment & Plan (1) UTI (urinary tract infection): This is a 89-year-old female from [facility] in [place] with a PMH of recurrent UTI growing Klebsiella, paroxysmal atrial fibrillation and history of DVT on Coumadin, nonobstructive CAD, hypertension, CKD III and other medical problems listed below who presents with altered mental status and fatigue starting this morning and was found to have UTI. -Presenting with fatigue, possible confusion that has since resolved, some dysuria. Chronic urinary incontinence -UA grossly abnormal with positive leuk esterase, nitrite, 3+ blood, 4+ bacteria -History of recurrent UTI, most recently grew Klebsiella on urine culture in late Sep 2019 -Treating empirically with cefepime, awaiting culture results -CT abd/pelvis with nonobstructing left nephrolithiasis and mild left pelvocaliectasis and distention of the left ureter without gross evidence of an obstructing etiology. However, significant limitations in assessment of the distal left ureter due to regional streak artifact. It is difficult to exclude calculus or mass in the distal left ureter -Urine culture is growing gram-negative bacilli, further identification and sensitivity are pending -Urine is growing Klebsiella and antibiotic is changed to Keflex -Symptomatically much better More confused at presentation Likely has metabolic encephalopathy in the setting of UTI, resolved Back to her baseline (2) Supratherapeutic INR: INR of 4.7, recently had coumadin dose increased to 3.5mg daily- last dose yesterday afternoon -UA with 3+ blood but no mayito blood in urine sample, so will not give vitamin K for reversal at this time -Monitor closely for hematuria. Hold coumadin, monitor INR daily -INR is 4.5 today on 12/08/2019 and 3.0 as of 12/09/2019 (3) Paroxysmal atrial fibrillation: EKG with normal sinus rhythm -Continue Toprol -Holding coumadin in setting of supratherapeutic INR -Rate remains controlled (4) HTN (hypertension): Normotensive at 119/59 -Continue Toprol with hold parameters (5) Anxiety: (6) Depression: Continue SSRI DVT Ppx: SCDs, holding coumadin with supratherapeutic INR Code status: DNR per chart review, discussion with patient PCP: Vinnie Dispo: Admitted to med/surg. Discharge planning ordered to coordinate return to [facility] once medically appropriate. Remains stable and discussed with her son yesterday We will get PT and OT evaluation and possible discharge in a day or 2 Subjective 12/08/2019 The patient was seen and examined in medical She remains weak and lethargic and pleasantly confused Denies any acute symptoms 12/09/2019 The patient was seen and examined in medical floor She has been feeling a lot better Eating almost normally and denies any significant symptom Review of Systems Review of Systems: All systems reviewed and are unremarkable except as noted below Physical Exam Physical Exam: Lying in bed comfortably Constitutional: well developed and well nourished; no acute distress and not ill appearing Eyes: PERRL, conjunctivae normal, anicteric sclerae ENMT: external ear and nose normal, oropharynx normal Neck: trachea midline, no thyromegaly Respiratory: normal respiratory effort; no respiratory distress Auscultation: lungs clear to auscultation bilaterally Cardiovascular: Rate/Rhythm: regular rate and regular rhythm Heart Sounds: no murmur Gastrointestinal (Abdomen): Inspection/Auscultation: abdomen normal to inspection and normal bowel sounds Percussion/Palpation: abdomen soft; abdomen nontender Musculoskeletal: No acute arthritis in any joints Skin: Has perineal skin tear around the private part. Wound care consult Neurologic: moves all extremities; no focal motor deficits Lymphatic: no cervical or axillary lymphadenopathy Results & Data ([facility]) Vital Signs (Past 12 Hours) Vital Signs Temp Pulse Resp BP Pulse Ox 12/09/19 15:22 36.8 C 62 17 134/76 96 12/09/19 11:59 68 145/70 H 12/09/19 07:00 36.6 C 58 L 16 150/76 H 95 Laboratory Results Short CBC 12/09/19 Range/Units 06:52 WBC 5.04 (4.8-10.8) K/uL Hgb 11.3 L (12.0-16.0) g/dL Hct 34.1 L (37-47) % Plt Count 185 (130-400) K/uL BMP 12/09/19 06:52 Sodium 144 Potassium 3.1 L D Chloride 113 H Carbon Dioxide 25 BUN 11 Creatinine 0.85 Glucose 88 Calcium 8.7 Medications Administered Current Inpatient Medications Acetaminophen (Tylenol) 650 mg PO Q4H PRN PRN Reason: pain/fever Stop: 01/06/20 16:31 Last Admin: 12/07/19 22:29 Dose: 650 mg Documented by: Cephalexin HCl (Keflex) 500 mg PO BID [facility]; Protocol Stop: 12/16/19 09:01 Last Admin: 12/09/19 11:57 Dose: 500 mg Documented by: Escitalopram Oxalate (Lexapro Tab) 20 mg PO DAILY@1200 [facility] Stop: 01/07/20 11:59 Last Admin: 12/09/19 11:57 Dose: 20 mg Documented by: Ferrous Sulfate (Feosol) 325 mg PO BID [facility] Stop: 01/06/20 20:59 Last Admin: 12/09/19 11:57 Dose: 325 mg Documented by: Gabapentin (Neurontin) 100 mg PO [facility] Stop: 01/06/20 20:59 Last Admin: 12/08/19 20:42 Dose: 100 mg Documented by: Metoprolol Succinate (Toprol Xl) 12.5 mg PO DAILY@1200 [facility] Stop: 01/07/20 11:59 Last Admin: 12/09/19 11:57 Dose: 12.5 mg Documented by: Mirtazapine (Remeron) 15 mg PO [facility] Stop: 01/06/20 20:59 Last Admin: 12/08/19 20:42 Dose: 15 mg Documented by: Pantoprazole Sodium (Protonix) 40 mg PO DAILY@[address] [place] [address] Stop: 01/07/20 11:59 Last Admin: 12/09/19 11:57 Dose: 40 mg Documented by: Polyethylene Glycol (Miralax Powder Packet) 17 gm PO DAILY PRN PRN Reason: Constipation Stop: 01/06/20 16:31 Potassium Chloride (Klor-Con M10) 10 meq PO DAILY@1200 [facility] Stop: 01/07/20 11:59 Last Admin: 12/09/19 11:57 Dose: 10 meq Documented by: Tramadol HCl (Ultram) 50 mg PO Q4H PRN PRN Reason: Pain Stop: 01/06/20 16:31 (1) Depression Depression Type: unspecified Qualified Code(s): F32.9 - Major depressive disorder, single episode, unspecified
[2019-12-09] MEDS: MIRTAZAPINE TAB 15 MG TAB PO SCH (21:05)
[2019-12-09] MEDS: GABAPENTIN 100 MG CAP PO SCH (21:05)
[2019-12-10 05:49] LABS: Basophils # (auto) 0.02 K/uL (0-0.2); Basophils % (auto) 0.4 %; Eosinophils # (auto) 0.28 K/uL (0-0.5); Hemoglobin 11.6 g/dL (12.0-16.0); Immature Granulocytes # (auto) 0.01 K/uL (0.00-0.02); Immature Granulocytes % (auto) 0.2 %; Lymphocytes # (auto) 1.67 K/uL (1.2-3.4); Lymphocytes % (auto) 36.1 %; Mean Corpuscular Hemoglobin 33.5 pg (25-34); Mean Corpuscular Hgb Conc 33.1 g/dL (32-36); Mean Corpuscular Volume 101.2 fL (80-100); Mean Platelet Volume 9.1 fL (7.4-10.4); Monocytes # (auto) 0.47 K/uL (0.11-0.59); Monocytes % (auto) 10.2 %; Neutrophils # (auto) 2.18 K/uL (1.4-6.5); Neutrophils % (auto) 47.1 %; Platelet Count 181 K/uL (130-400); RDW Coefficient of Variation 13.7 % (11.5-14.5); RDW Standard Deviation 50.7 fL (36.4-46.3); Red Blood Count 3.46 M/uL (4.2-5.4); White Blood Count 4.63 K/uL (4.8-10.8)
[2019-12-10 06:00] LABS: INR 2.1 (0.9-1.1); Prothrombin Time 20.7 Seconds (9.0-12.0)
[2019-12-10 06:21] LABS: BUN Creatinine Ratio 7.9 (10-20); Calcium 8.9 mg/dl (8.5-10.1); Creatinine Clr Calc Pharmacy 40.9 ml/min; Est GFR (African American) 81.7; Est GFR (Non-African American) 70.5; Potassium 3.4 mmol/L (3.5-5.1)
[2019-12-10] MEDS: cephALEXin 500 MG CAP PO SCH ×2 (08:18→20:14)
[2019-12-10] MEDS: FERROUS SULFATE 325 MG TAB PO SCH ×2 (08:18→20:14)
[2019-12-10] MEDS: METOPROLOL SUCC 25MG EXT REL TAB PO SCH (11:33)
[2019-12-10] MEDS: POTASSIUM CHLORIDE 10 MEQ TABCR PO SCH (11:33)
[2019-12-10] MEDS: ESCITALOPRAM OXALATE 20 MG TAB PO SCH (11:33)
[2019-12-10] MEDS: PANTOprazole 40 MG TAB PO SCH (11:33)
[2019-12-10] MEDS: ACETAMINOPHEN 325 MG TAB PO PRN (15:35)
--- NOTE | 2019-12-10 17:27 | Hospitalist Progress Note ---
Date of Service December 10, 2019 Assessment & Plan (1) UTI (urinary tract infection): This is a 89-year-old female from [facility] in [place] with a PMH of recurrent UTI growing Klebsiella, paroxysmal atrial fibrillation and history of DVT on Coumadin, nonobstructive CAD, hypertension, CKD III and other medical problems listed below who presents with altered mental status and fatigue starting this morning and was found to have UTI. -Presenting with fatigue, possible confusion that has since resolved, some dysuria. Chronic urinary incontinence -UA grossly abnormal with positive leuk esterase, nitrite, 3+ blood, 4+ bacteria -History of recurrent UTI, most recently grew Klebsiella on urine culture in late Sep 2019 -Treating empirically with cefepime, awaiting culture results -CT abd/pelvis with nonobstructing left nephrolithiasis and mild left pelvocaliectasis and distention of the left ureter without gross evidence of an obstructing etiology. However, significant limitations in assessment of the distal left ureter due to regional streak artifact. It is difficult to exclude calculus or mass in the distal left ureter -Urine culture is growing gram-negative bacilli, further identification and sensitivity are pending -Urine is growing Klebsiella and antibiotic is changed to Keflex -Symptomatically much better -Clinically much improved and back to her baseline More confused at presentation Likely has metabolic encephalopathy in the setting of UTI, resolved Back to her baseline She will be discharged tomorrow (2) Supratherapeutic INR: INR of 4.7, recently had coumadin dose increased to 3.5mg daily- last dose yesterday afternoon -UA with 3+ blood but no mayito blood in urine sample, so will not give vitamin K for reversal at this time -Monitor closely for hematuria. Hold coumadin, monitor INR daily -INR is 4.5 today on 12/08/2019 and 3.0 as of 12/09/2019 -INR is 2.1 today -We will restart Coumadin from today (3) Paroxysmal atrial fibrillation: EKG with normal sinus rhythm -Continue Toprol -Holding coumadin in setting of supratherapeutic INR -Rate remains controlled (4) HTN (hypertension): Normotensive at 119/59 -Continue Toprol with hold parameters (5) Anxiety: (6) Depression: Continue SSRI DVT Ppx: SCDs, holding coumadin with supratherapeutic INR Code status: DNR per chart review, discussion with patient PCP: Vinnie Dispo: Admitted to med/surg. Discharge planning ordered to coordinate return to [facility] once medically appropriate. Remains stable and discussed with her son yesterday We will get PT and OT evaluation and possible discharge in a day or 2 Discharge tomorrow Subjective 12/08/2019 The patient was seen and examined in medical She remains weak and lethargic and pleasantly confused Denies any acute symptoms 12/09/2019 The patient was seen and examined in medical floor She has been feeling a lot better Eating almost normally and denies any significant symptom 12/10/2019 The patient was seen and examined in medical floor She has been stable and denies any symptoms She is no more confused and participating in physical therapy Review of Systems Review of Systems: All systems reviewed and are unremarkable except as noted below Physical Exam Physical Exam: Lying in bed comfortably Constitutional: well developed and well nourished; no acute distress and not ill appearing Eyes: PERRL, conjunctivae normal, anicteric sclerae ENMT: external ear and nose normal, oropharynx normal Neck: trachea midline, no thyromegaly Respiratory: normal respiratory effort; no respiratory distress Auscultation: lungs clear to auscultation bilaterally Cardiovascular: Rate/Rhythm: regular rate and regular rhythm Heart Sounds: no murmur Gastrointestinal (Abdomen): Inspection/Auscultation: abdomen normal to inspection and normal bowel sounds Percussion/Palpation: abdomen soft; abdomen nontender Neurologic: moves all extremities; no focal motor deficits Psychiatric: Orientation: alert and oriented x 3 Lymphatic: no cervical or axillary lymphadenopathy Results & Data ([facility]) Vital Signs (Past 12 Hours) Vital Signs Temp Pulse Resp BP Pulse Ox 12/10/19 15:16 36.8 C 62 18 111/69 97 12/10/19 07:20 36.4 C L 61 18 119/74 97 Laboratory Results Short CBC 12/10/19 Range/Units 05:32 WBC 4.63 L (4.8-10.8) K/uL Hgb 11.6 L (12.0-16.0) g/dL Hct 35.0 L (37-47) % Plt Count 181 (130-400) K/uL BMP 12/10/19 05:32 Sodium 145 Potassium 3.4 L Chloride 114 H Carbon Dioxide 24 BUN 6 L D Creatinine 0.76 Glucose 86 Calcium 8.9 Medications Administered Current Inpatient Medications Acetaminophen (Tylenol) 650 mg PO Q4H PRN PRN Reason: pain/fever Stop: 01/06/20 16:31 Last Admin: 12/10/19 15:35 Dose: 650 mg Documented by: Cephalexin HCl (Keflex) 500 mg PO BID [facility]; Protocol Stop: 12/16/19 09:01 Last Admin: 12/10/19 08:18 Dose: 500 mg Documented by: Escitalopram Oxalate (Lexapro Tab) 20 mg PO DAILY@[address] [place] [address] Stop: 01/07/20 11:59 Last Admin: 12/10/19 11:33 Dose: 20 mg Documented by: Ferrous Sulfate (Feosol) 325 mg PO BID [facility] Stop: 01/06/20 20:59 Last Admin: 12/10/19 08:18 Dose: 325 mg Documented by: Gabapentin (Neurontin) 100 mg PO [facility] Stop: 01/06/20 20:59 Last Admin: 12/09/19 21:05 Dose: 100 mg Documented by: Metoprolol Succinate (Toprol Xl) 12.5 mg PO DAILY@[address] [place] [address] Stop: 01/07/20 11:59 Last Admin: 12/10/19 11:33 Dose: 12.5 mg Documented by: Mirtazapine (Remeron) 15 mg PO [facility] Stop: 01/06/20 20:59 Last Admin: 12/09/19 21:05 Dose: 15 mg Documented by: Pantoprazole Sodium (Protonix) 40 mg PO DAILY@[address] [place] [address] Stop: 01/07/20 11:59 Last Admin: 12/10/19 11:33 Dose: 40 mg Documented by: Polyethylene Glycol (Miralax Powder Packet) 17 gm PO DAILY PRN PRN Reason: Constipation Stop: 01/06/20 16:31 Potassium Chloride (Klor-Con M10) 10 meq PO DAILY@[address] [place] [address] Stop: 01/07/20 11:59 Last Admin: 12/10/19 11:33 Dose: 10 meq Documented by: Tramadol HCl (Ultram) 50 mg PO Q4H PRN PRN Reason: Pain Stop: 01/06/20 16:31 (1) Depression Depression Type: unspecified Qualified Code(s): F32.9 - Major depressive di sorder, single episode, unspecified
[2019-12-10] MEDS: GABAPENTIN 100 MG CAP PO SCH (20:14)
[2019-12-10] MEDS: MIRTAZAPINE TAB 15 MG TAB PO SCH (20:14)
[2019-12-11] MEDS: cephALEXin 500 MG CAP PO SCH ×2 (07:51→20:53)
[2019-12-11] MEDS: FERROUS SULFATE 325 MG TAB PO SCH ×2 (07:51→20:55)
[2019-12-11] MEDS: POTASSIUM CHLORIDE 10 MEQ TABCR PO SCH (10:59)
[2019-12-11] MEDS: METOPROLOL SUCC 25MG EXT REL TAB PO SCH (10:59)
[2019-12-11] MEDS: ESCITALOPRAM OXALATE 20 MG TAB PO SCH (10:59)
[2019-12-11] MEDS: PANTOprazole 40 MG TAB PO SCH (10:59)
--- NOTE | 2019-12-11 14:13 | Hospitalist Progress Note ---
Date of Service December 11, 2019 Assessment & Plan (1) UTI (urinary tract infection): This is a 89-year-old female from [facility] in [place] with a PMH of recurrent UTI growing Klebsiella, paroxysmal atrial fibrillation and history of DVT on Coumadin, nonobstructive CAD, hypertension, CKD III and other medical problems listed below who presents with altered mental status and fatigue starting this morning and was found to have UTI. -Presenting with fatigue, possible confusion that has since resolved, some dysuria. Chronic urinary incontinence -UA grossly abnormal with positive leuk esterase, nitrite, 3+ blood, 4+ bacteria -History of recurrent UTI, most recently grew Klebsiella on urine culture in late Sep 2019 -Treating empirically with cefepime, awaiting culture results -CT abd/pelvis with nonobstructing left nephrolithiasis and mild left pelvocaliectasis and distention of the left ureter without gross evidence of an obstructing etiology. However, significant limitations in assessment of the distal left ureter due to regional streak artifact. It is difficult to exclude calculus or mass in the distal left ureter -Urine culture is growing gram-negative bacilli, further identification and sensitivity are pending -Urine is growing Klebsiella and antibiotic is changed to Keflex -Symptomatically much better -Clinically much improved and back to her baseline -Denies any urinary symptoms More confused at presentation Likely has metabolic encephalopathy in the setting of UTI, resolved Back to her baseline Likely discharge on Friday Labial tear No signs of infection Appreciate wound care input Needs to be better before discharge (2) Supratherapeutic INR: INR of 4.7, recently had coumadin dose increased to 3.5mg daily- last dose yesterday afternoon -UA with 3+ blood but no mayito blood in urine sample, so will not give vitamin K for reversal at this time -Monitor closely for hematuria. Hold coumadin, monitor INR daily -INR is 4.5 today on 12/08/2019 and 3.0 as of 12/09/2019 -INR is 2.1 today -We will restart Coumadin from today (3) Paroxysmal atrial fibrillation: EKG with normal sinus rhythm -Continue Toprol -Holding coumadin in setting of supratherapeutic INR -Rate remains controlled (4) HTN (hypertension): Normotensive at 119/59 -Continue Toprol with hold parameters (5) Anxiety: (6) Depression: Continue SSRI DVT Ppx: SCDs, holding coumadin with supratherapeutic INR Code status: DNR per chart review, discussion with patient PCP: Vinnie Dispo: Admitted to med/surg. Discharge planning ordered to coordinate return to [facility] once medically appropriate. Remains stable and discussed with her son yesterday We will get PT and OT evaluation and possible discharge in a day or 2 Likely discharge on Friday Subjective 12/08/2019 The patient was seen and examined in medical She remains weak and lethargic and pleasantly confused Denies any acute symptoms 12/09/2019 The patient was seen and examined in medical floor She has been feeling a lot better Eating almost normally and denies any significant symptom 12/10/2019 The patient was seen and examined in medical floor She has been stable and denies any symptoms She is no more confused and participating in physical therapy 12/11/2019 The patient was seen and examined in medical floor She remains stable Denies any symptoms Review of Systems Review of Systems: All systems reviewed and are unremarkable except as noted below Physical Exam Physical Exam: Lying in bed comfortably Constitutional: well developed and well nourished; no acute distress and not ill appearing Eyes: PERRL, conjunctivae normal, anicteric sclerae ENMT: external ear and nose normal, oropharynx normal Neck: trachea midline, no thyromegaly Respiratory: normal respiratory effort; no respiratory distress Auscultation: lungs clear to auscultation bilaterally and + crackles (Minimal crackles at the bases) Cardiovascular: Rate/Rhythm: regular rate and regular rhythm Heart Sounds: no murmur Extremities: no edema Gastrointestinal (Abdomen): Inspection/Auscultation: abdomen normal to inspection and normal bowel sounds Percussion/Palpation: abdomen soft; abdomen nontender Musculoskeletal: No acute arthritis in any joint Skin: Perineal area remains inflamed Neurologic: moves all extremities; no focal motor deficits Psychiatric: Orientation: alert and oriented x 3 Lymphatic: no cervical or axillary lymphadenopathy Results & Data ([facility]) Vital Signs (Past 12 Hours) Vital Signs Temp Pulse Resp BP Pulse Ox 12/11/19 07:00 36.6 C 65 18 128/68 96 Medications Administered Current Inpatient Medications Acetaminophen (Tylenol) 650 mg PO Q4H PRN PRN Reason: pain/fever Stop: 01/06/20 16:31 Last Admin: 12/10/19 15:35 Dose: 650 mg Documented by: Cephalexin HCl (Keflex) 500 mg PO BID [facility]; Protocol Stop: 12/16/19 09:01 Last Admin: 12/11/19 07:51 Dose: 500 mg Documented by: Escitalopram Oxalate (Lexapro Tab) 20 mg PO DAILY@1200 [facility] Stop: 01/07/20 11:59 Last Admin: 12/11/19 10:59 Dose: 20 mg Documented by: Ferrous Sulfate (Feosol) 325 mg PO BID [facility] Stop: 01/06/20 20:59 Last Admin: 12/11/19 07:51 Dose: 325 mg Documented by: Gabapentin (Neurontin) 100 mg PO [facility] Stop: 01/06/20 20:59 Last Admin: 12/10/19 20:14 Dose: 100 mg Documented by: Metoprolol Succinate (Toprol Xl) 12.5 mg PO DAILY@1200 [facility] Stop: 01/07/20 11:59 Last Admin: 12/11/19 10:59 Dose: 12.5 mg Documented by: Mirtazapine (Remeron) 15 mg PO [facility] Stop: 01/06/20 20:59 Last Admin: 12/10/19 20:14 Dose: 15 mg Documented by: Pantoprazole Sodium (Protonix) 40 mg PO DAILY@1200 [facility] Stop: 01/07/20 11:59 Last Admin: 12/11/19 10:59 Dose: 40 mg Documented by: Polyethylene Glycol (Miralax Powder Packet) 17 gm PO DAILY PRN PRN Reason: Constipation Stop: 01/06/20 16:31 Potassium Chloride (Klor-Con M10) 10 meq PO DAILY@1200 [facility] Stop: 01/07/20 11:59 Last Admin: 12/11/19 10:59 Dose: 10 meq Documented by: Tramadol HCl (Ultram) 50 mg PO Q4H PRN PRN Reason: Pain Stop: 01/06/20 16:31 Warfarin Sodium (Coumadin) 3 mg PO DAILY@1600 [facility] Stop: 01/10/20 15:59 Warfarin Sodium (Coumadin) 0.5 mg PO DAILY@1600 [facility] Stop: 01/10/20 15:59 (1) Depression Depression Type: unspecified Qualified Code(s): F32.9 - Major depressive disorder, single episode, unspecified
[2019-12-11] MEDS: WARFARIN SOD 3 MG TAB PO SCH (16:30)
[2019-12-11] MEDS: WARFARIN SOD 0.5 MG TAB PO SCH (16:30)
[2019-12-11] MEDS: GABAPENTIN 100 MG CAP PO SCH (20:52)
[2019-12-11] MEDS: MIRTAZAPINE TAB 15 MG TAB PO SCH (20:54)
[2019-12-12] MEDS: FERROUS SULFATE 325 MG TAB PO SCH ×2 (08:08→20:25)
[2019-12-12] MEDS: cephALEXin 500 MG CAP PO SCH ×2 (08:10→20:00)
--- NOTE | 2019-12-12 11:54 | Hospitalist Progress Note ---
Date of Service December 12, 2019 Assessment & Plan (1) UTI (urinary tract infection): This is a 89-year-old female from [facility] in [place] with a PMH of recurrent UTI growing Klebsiella, paroxysmal atrial fibrillation and history of DVT on Coumadin, nonobstructive CAD, hypertension, CKD III and other medical problems listed below who presents with altered mental status and fatigue starting this morning and was found to have UTI. -Presenting with fatigue, possible confusion that has since resolved, some dysuria. Chronic urinary incontinence -UA grossly abnormal with positive leuk esterase, nitrite, 3+ blood, 4+ bacteria -History of recurrent UTI, most recently grew Klebsiella on urine culture in late Sep 2019 -Treating empirically with cefepime, awaiting culture results -CT abd/pelvis with nonobstructing left nephrolithiasis and mild left pelvocaliectasis and distention of the left ureter without gross evidence of an obstructing etiology. However, significant limitations in assessment of the distal left ureter due to regional streak artifact. It is difficult to exclude calculus or mass in the distal left ureter -Urine culture is growing gram-negative bacilli, further identification and sensitivity are pending -Urine is growing Klebsiella and antibiotic is changed to Keflex -Symptomatically much better -Clinically much improved and back to her baseline -Denies any urinary symptoms More confused at presentation Likely has metabolic encephalopathy in the setting of UTI, resolved Back to her baseline Likely discharge on Friday Labial tear No signs of infection Appreciate wound care input Needs to be better before discharge Dressing as per wound care recommendation (2) Supratherapeutic INR: INR of 4.7, recently had coumadin dose increased to 3.5mg daily- last dose yesterday afternoon -UA with 3+ blood but no mayito blood in urine sample, so will not give vitamin K for reversal at this time -Monitor closely for hematuria. Hold coumadin, monitor INR daily -INR is 4.5 today on 12/08/2019 and 3.0 as of 12/09/2019 -INR is 2.1 today -We will restart Coumadin from today -We will check complete blood count and INR tomorrow (3) Paroxysmal atrial fibrillation: EKG with normal sinus rhythm -Continue Toprol -Holding coumadin in setting of supratherapeutic INR -Rate remains controlled (4) HTN (hypertension): Normotensive at 119/59 -Continue Toprol with hold parameters (5) Anxiety: (6) Depression: Continue SSRI DVT Ppx: SCDs, holding coumadin with supratherapeutic INR Code status: DNR per chart review, discussion with patient PCP: Vinnie Dispo: Admitted to med/surg. Discharge planning ordered to coordinate return to [facility] once medically appropriate. Remains stable and discussed with her son yesterday We will get PT and OT evaluation and possible discharge in a day or 2 Likely discharge on Friday Subjective 12/08/2019 The patient was seen and examined in medical She remains weak and lethargic and pleasantly confused Denies any acute symptoms 12/09/2019 The patient was seen and examined in medical floor She has been feeling a lot better Eating almost normally and denies any significant symptom 12/10/2019 The patient was seen and examined in medical floor She has been stable and denies any symptoms She is no more confused and participating in physical therapy 12/11/2019 The patient was seen and examined in medical floor She remains stable Denies any symptoms 12/12/2019 Patient is seen and examined in medical floor She remains stable without any symptom Will be going to be discharged tomorrow Review of Systems Review of Systems: All systems reviewed and are unremarkable except as noted below Physical Exam Physical Exam: Lying in bed comfortably Constitutional: well developed and well nourished; no acute distress and not ill appearing Eyes: PERRL, conjunctivae normal, anicteric sclerae ENMT: external ear and nose normal, oropharynx normal Neck: trachea midline, no thyromegaly Respiratory: normal respiratory effort; no respiratory distress Auscultation: lungs clear to auscultation bilaterally and + crackles (Minimal crackles at the bases) Cardiovascular: Rate/Rhythm: regular rate and regular rhythm Heart Sounds: no murmur Extremities: no edema Gastrointestinal (Abdomen): Inspection/Auscultation: abdomen normal to inspection and normal bowel sounds Percussion/Palpation: abdomen soft; abdomen nontender Skin: Please see the picture of perineal wound Neurologic: moves all extremities; no focal motor deficits Has dementia but no acute confusion Psychiatric: Orientation: alert and oriented x 3 Lymphatic: no cervical or axillary lymphadenopathy Results & Data ([facility]) Vital Signs (Past 12 Hours) Vital Signs Temp Pulse Resp BP Pulse Ox 12/12/19 07:09 36.8 C 58 L 18 145/84 H 96 Medications Administered Current Inpatient Medications Acetaminophen (Tylenol) 650 mg PO Q4H PRN PRN Reason: pain/fever Stop: 01/06/20 16:31 Last Admin: 12/10/19 15:35 Dose: 650 mg Documented by: Cephalexin HCl (Keflex) 500 mg PO BID [facility]; Protocol Stop: 12/16/19 09:01 Last Admin: 12/12/19 08:10 Dose: 500 mg Documented by: Escitalopram Oxalate (Lexapro Tab) 20 mg PO DAILY@1200 [facility] Stop: 01/07/20 11:59 Last Admin: 12/11/19 10:59 Dose: 20 mg Documented by: Ferrous Sulfate (Feosol) 325 mg PO BID [facility] Stop: 01/06/20 20:59 Last Admin: 12/12/19 08:08 Dose: 325 mg Documented by: Gabapentin (Neurontin) 100 mg PO [facility] Stop: 01/06/20 20:59 Last Admin: 12/11/19 20:52 Dose: 100 mg Documented by: Metoprolol Succinate (Toprol Xl) 12.5 mg PO DAILY@[address] [place] [address] Stop: 01/07/20 11:59 Last Admin: 12/11/19 10:59 Dose: 12.5 mg Documented by: Mirtazapine (Remeron) 15 mg PO [facility] Stop: 01/06/20 20:59 Last Admin: 12/11/19 20:54 Dose: 15 mg Documented by: Pantoprazole Sodium (Protonix) 40 mg PO DAILY@1200 [facility] Stop: 01/07/20 11:59 Last Admin: 12/11/19 10:59 Dose: 40 mg Documented by: Polyethylene Glycol (Miralax Powder Packet) 17 gm PO DAILY PRN PRN Reason: Constipation Stop: 01/06/20 16:31 Potassium Chloride (Klor-Con M10) 10 meq PO DAILY@1200 [facility] Stop: 01/07/20 11:59 Last Admin: 12/11/19 10:59 Dose: 10 meq Documented by: Tramadol HCl (Ultram) 50 mg PO Q4H PRN PRN Reason: Pain Stop: 01/06/20 16:31 Warfarin Sodium (Coumadin) 3 mg PO DAILY@1600 [facility] Stop: 01/10/20 15:59 Last Admin: 12/11/19 16:30 Dose: 3 mg Documented by: Warfarin Sodium (Coumadin) 0.5 mg PO DAILY@1600 [facility] Stop: 01/10/20 15:59 Last Admin: 12/11/19 16:30 Dose: 0.5 mg Documented by: (1) Depression Depression Type: unspecified Qualified Code(s): F32.9 - Major depressive disorder, single episode, unspecified
[2019-12-12] MEDS: METOPROLOL SUCC 25MG EXT REL TAB PO SCH (13:18)
[2019-12-12] MEDS: ESCITALOPRAM OXALATE 20 MG TAB PO SCH (13:18)
[2019-12-12] MEDS: POTASSIUM CHLORIDE 10 MEQ TABCR PO SCH (13:18)
[2019-12-12] MEDS: PANTOprazole 40 MG TAB PO SCH (13:20)
[2019-12-12] MEDS: WARFARIN SOD 0.5 MG TAB PO SCH (15:30)
[2019-12-12] MEDS: WARFARIN SOD 3 MG TAB PO SCH (15:31)
[2019-12-12] MEDS: ACETAMINOPHEN 325 MG TAB PO PRN (19:51)
[2019-12-12] MEDS: MIRTAZAPINE TAB 15 MG TAB PO SCH (20:00)
[2019-12-12] MEDS: GABAPENTIN 100 MG CAP PO SCH (20:00)
[2019-12-13 06:31] LABS: Basophils # (auto) 0.03 K/uL (0-0.2); Basophils % (auto) 0.5 %; Eosinophils # (auto) 0.26 K/uL (0-0.5); Eosinophils % (auto) 4.7 %; Hematocrit (blood only) 35.4 % (37-47); Hemoglobin 11.8 g/dL (12.0-16.0); Immature Granulocytes # (auto) 0.02 K/uL (0.00-0.02); Immature Granulocytes % (auto) 0.4 %; Lymphocytes # (auto) 2.04 K/uL (1.2-3.4); Lymphocytes % (auto) 36.7 %; Mean Corpuscular Hemoglobin 33.3 pg (25-34); Mean Corpuscular Hgb Conc 33.3 g/dL (32-36); Mean Platelet Volume 8.7 fL (7.4-10.4); Monocytes # (auto) 0.44 K/uL (0.11-0.59); Monocytes % (auto) 7.9 %; Neutrophils # (auto) 2.77 K/uL (1.4-6.5); Neutrophils % (auto) 49.8 %; Platelet Count 215 K/uL (130-400); RDW Coefficient of Variation 13.6 % (11.5-14.5); RDW Standard Deviation 49.5 fL (36.4-46.3); Red Blood Count 3.54 M/uL (4.2-5.4); White Blood Count 5.56 K/uL (4.8-10.8)
[2019-12-13 06:51] LABS: INR 1.5 (0.9-1.1); Prothrombin Time 14.8 Seconds (9.0-12.0)
[2019-12-13 07:04] LABS: BUN Creatinine Ratio 22.5 (10-20); Calcium 9.5 mg/dl (8.5-10.1); Creatinine Clr Calc Pharmacy 30.5 ml/min; Est GFR (African American) 57.3; Est GFR (Non-African American) 49.4; Potassium 3.7 mmol/L (3.5-5.1)
[2019-12-13] MEDS: FERROUS SULFATE 325 MG TAB PO SCH (08:19)
[2019-12-13] MEDS: cephALEXin 500 MG CAP PO SCH (08:19)
--- NOTE | 2019-12-13 11:12 | Hospitalist Progress Note ---
Date of Service December 13, 2019 Assessment & Plan (1) UTI (urinary tract infection): This is a 89-year-old female from [facility] in [place] with a PMH of recurrent UTI growing Klebsiella, paroxysmal atrial fibrillation and history of DVT on Coumadin, nonobstructive CAD, hypertension, CKD III and other medical problems listed below who presents with altered mental status and fatigue starting this morning and was found to have UTI. -Presenting with fatigue, possible confusion that has since resolved, some dysuria. Chronic urinary incontinence -UA grossly abnormal with positive leuk esterase, nitrite, 3+ blood, 4+ bacteria -History of recurrent UTI, most recently grew Klebsiella on urine culture in late Sep 2019 -Treating empirically with cefepime, awaiting culture results -CT abd/pelvis with nonobstructing left nephrolithiasis and mild left pelvocaliectasis and distention of the left ureter without gross evidence of an obstructing etiology. However, significant limitations in assessment of the distal left ureter due to regional streak artifact. It is difficult to exclude calculus or mass in the distal left ureter -Urine culture is growing gram-negative bacilli, further identification and sensitivity are pending -Urine is growing Klebsiella and antibiotic is changed to Keflex -Symptomatically much better -Clinically much improved and back to her baseline -Denies any urinary symptoms -We will continue oral antibiotic for 3 more days More confused at presentation Likely has metabolic encephalopathy in the setting of UTI, resolved Back to her baseline Likely discharge on Friday Labial tear No signs of infection Appreciate wound care input Needs to be better before discharge Dressing as per wound care recommendation Discussed with the wound care nurse Dressing instructions is in the chart (2) Supratherapeutic INR: INR of 4.7, recently had coumadin dose increased to 3.5mg daily- last dose yesterday afternoon -UA with 3+ blood but no mayito blood in urine sample, so will not give vitamin K for reversal at this time -Monitor closely for hematuria. Hold coumadin, monitor INR daily -INR is 4.5 today on 12/08/2019 and 3.0 as of 12/09/2019 -INR is 2.1 today -We will restart Coumadin from today -INR is 1.5 today -Continue current dose of anticoagulation (3) Paroxysmal atrial fibrillation: EKG with normal sinus rhythm -Continue Toprol -Holding coumadin in setting of supratherapeutic INR -Rate remains controlled (4) HTN (hypertension): Normotensive at 119/59 -Continue Toprol with hold parameters (5) Anxiety: (6) Depression: Continue SSRI DVT Ppx: SCDs, holding coumadin with supratherapeutic INR Code status: DNR per chart review, discussion with patient PCP: Vinnie Dispo: Admitted to med/surg. Discharge planning ordered to coordinate return to [facility] once medically appropriate. Remains stable and discussed with her son yesterday We will get PT and OT evaluation and possible discharge in a day or 2 Will be transferred to [facility] this afternoon Admission and Anticipated Discharge Date Admission Date: December 07, 2019 Subjective 12/08/2019 The patient was seen and examined in medical She remains weak and lethargic and pleasantly confused Denies any acute symptoms 12/09/2019 The patient was seen and examined in medical floor She has been feeling a lot better Eating almost normally and denies any significant symptom 12/10/2019 The patient was seen and examined in medical floor She has been stable and denies any symptoms She is no more confused and participating in physical therapy 12/11/2019 The patient was seen and examined in medical floor She remains stable Denies any symptoms 12/12/2019 Patient is seen and examined in medical floor She remains stable without any symptom Will be going to be discharged tomorrow 12/13/2019 Patient was seen and examined in medical floor She denies any symptoms Remains afebrile and without any urological symptoms and/or signs or symptoms of infection She will be transferred to [facility] this afternoon Review of Systems Review of Systems: All systems reviewed and are unremarkable except as noted below Genitourinary: no dysuria, no urinary frequency, no urinary hesitancy and no urinary urgency Physical Exam Physical Exam: Lying in bed comfortably Constitutional: well developed and well nourished; no acute distress and not ill appearing Eyes: PERRL, conjunctivae normal, anicteric sclerae ENMT: external ear and nose normal, oropharynx normal Neck: trachea midline, no thyromegaly Respiratory: normal respiratory effort; no respiratory distress Ausculta tion: lungs clear to auscultation bilaterally and + crackles (Minimal crackles at the bases) Cardiovascular: Rate/Rhythm: regular rate and regular rhythm Heart Sounds: no murmur Extremities: no edema Gastrointestinal (Abdomen): Inspection/Auscultation: abdomen normal to inspection and normal bowel sounds Percussion/Palpation: abdomen soft; abdomen nontender Musculoskeletal: No acute arthritis involving any joints Neurologic: moves all extremities; no focal motor deficits Psychiatric: Orientation: alert and oriented x 3 Lymphatic: no cervical or axillary lymphadenopathy Results & Data ([facility]) Vital Signs (Past 12 Hours) Vital Signs Temp Pulse Resp BP BP Pulse Ox 12/13/19 07:53 36 C L 55 L 16 122/77 96 12/12/19 23:15 36.4 C L 66 16 98/65 L 93 Laboratory Results Short CBC 12/13/19 Range/Units 06:15 WBC 5.56 (4.8-10.8) K/uL Hgb 11.8 L (12.0-16.0) g/dL Hct 35.4 L (37-47) % Plt Count 215 (130-400) K/uL BMP 12/13/19 06:15 Sodium 142 Potassium 3.7 Chloride 108 H Carbon Dioxide 29 BUN 23 H Creatinine 1.02 Glucose 93 Calcium 9.5 Medications Administered Current Inpatient Medications Acetaminophen (Tylenol) 650 mg PO Q4H PRN PRN Reason: pain/fever Stop: 01/06/20 16:31 Last Admin: 12/12/19 19:51 Dose: 650 mg Documented by: Cephalexin HCl (Keflex) 500 mg PO BID [facility]; Protocol Stop: 12/16/19 09:01 Last Admin: 12/13/19 08:19 Dose: 500 mg Documented by: Escitalopram Oxalate (Lexapro Tab) 20 mg PO DAILY@1200 [facility] Stop: 01/07/20 11:59 Last Admin: 12/12/19 13:18 Dose: 20 mg Documented by: Ferrous Sulfate (Feosol) 325 mg PO BID [facility] Stop: 01/06/20 20:59 Last Admin: 12/13/19 08:19 Dose: 325 mg Documented by: Gabapentin (Neurontin) 100 mg PO [facility] Stop: 01/06/20 20:59 Last Admin: 12/12/19 20:00 Dose: 100 mg Documented by: Metoprolol Succinate (Toprol Xl) 12.5 mg PO DAILY@1200 [facility] Stop: 01/07/20 11:59 Last Admin: 12/12/19 13:18 Dose: 12.5 mg Documented by: Mirtazapine (Remeron) 15 mg PO HS [facility] Stop: 01/06/20 20:59 Last Admin: 12/12/19 20:00 Dose: 15 mg Documented by: Pantoprazole Sodium (Protonix) 40 mg PO DAILY@1200 [facility] Stop: 01/07/20 11:59 Last Admin: 12/12/19 13:20 Dose: 40 mg Documented by: Polyethylene Glycol (Miralax Powder Packet) 17 gm PO DAILY PRN PRN Reason: Constipation Stop: 01/06/20 16:31 Potassium Chloride (Klor-Con M10) 10 meq PO DAILY@1200 [facility] Stop: 01/07/20 11:59 Last Admin: 12/12/19 13:18 Dose: 10 meq Documented by: Tramadol HCl (Ultram) 50 mg PO Q4H PRN PRN Reason: Pain Stop: 01/06/20 16:31 Warfarin Sodium (Coumadin) 3 mg PO DAILY@1600 [facility] Stop: 01/10/20 15:59 Last Admin: 12/12/19 15:31 Dose: 3 mg Documented by: Warfarin Sodium (Coumadin) 0.5 mg PO DAILY@1600 [facility] Stop: 01/10/20 15:59 Last Admin: 12/12/19 15:30 Dose: 0.5 mg Documented by: (1) Depression Depression Type: unspecified Qualified Code(s): F32.9 - Major depressive disorder, single episode, unspecified
[2019-12-13] MEDS: PANTOprazole 40 MG TAB PO SCH (12:48)
[2019-12-13] MEDS: POTASSIUM CHLORIDE 10 MEQ TABCR PO SCH (12:48)
[2019-12-13] MEDS: METOPROLOL SUCC 25MG EXT REL TAB PO SCH (12:48)
[2019-12-13] MEDS: ESCITALOPRAM OXALATE 20 MG TAB PO SCH (12:48)
[2019-12-13] MEDS: WARFARIN SOD 3 MG TAB PO SCH (15:44)
[2019-12-13] MEDS: WARFARIN SOD 0.5 MG TAB PO SCH (15:44)
--- NOTE | 2019-12-14 08:18 | Discharge Summary ---
Date of Service December 14, 2019 Admission HPI Per Admitting Provider This is a 89-year-old female from [facility] in [place] with a PMH of recurrent UTI growing Klebsiella, paroxysmal atrial fibrillation and history of DVT on Coumadin, nonobstructive CAD, hypertension, CKD III and other medical problems listed below who presents with altered mental status and fatigue starting this morning. Per discussion with [facility] staff, patient was in normal state of health until this morning when she seemed confused, fatigued and less alert. At baseline, patient is alert and oriented x3 with urinary incontinence, requiring 2 person assist with ambulation. Has history of recurrent UTI, most recently growing Klebsiella on urine culture with gram negative bacteremia. Treated with Zosyn initially, then changed to Ancef per ID with discharge on 14 day course of Keflex. Currently, patient is alert and oriented x3. Remembers feeling fatigued this morning with some dysuria. Decreased PO intake for past few days. Denies any confusion, lightheadedness, visual changes, fever, chills, chest pain, palpitations, shortness of breath, nausea, vomiting, abdominal pain, diarrhea or constipation. Has had hematuria in the past but denies any today. Nursing staff states that urinary output was yellow, no blood in urine. Did not receive any AM medications. Admission Exam Per Admitting Provider Physical Exam: General Appearance: WD/WN, vitals as above, NAD, lying in bed, pleasant, conversing easily Head: normocephalic, atraumatic Eyes: normal inspection, PERRL, conjunctivae normal, anicteric sclerae ENT: external ear and nose normal, oropharynx normal Neck: trachea midline, no thyromegaly normal visual inspection Respiratory: lungs clear to auscultation, no wheeze, rales, rhonchi. Normal ins p/exp effort, no accessory muscle use Cardiovascular: regular rate, rhythm, no murmur, normal peripheral pulses. Vessels: no JVD or carotid bruit Chest: normal inspection of chest Abdomen/GI: normal bowel sounds, soft, nontender, no hepatosplenomegaly Extremities/Musculoskelatal: no cyanosis or clubbing, extremities motor strength 5/5 Neurologic: PERRL, EOMI, accommodation nl, no face palsy, no dysarthria, CN's II-XI intact bilaterally and moves all extremities Psychiatric: A+Ox4, euthymic affect Skin: no rashes, normal color, warm/dry Principal Diagnosis UTI, acute confusion secondary-resolved, PAF on Coumadin, hypertension Discharge Exam Constitutional well developed and well nourished; no acute distress and not ill appearing Eyes PERRL, conjunctivae normal, anicteric sclerae ENMT external ear and nose normal, oropharynx normal Neck trachea midline, no thyromegaly Respiratory normal respiratory effort; no respiratory distress Auscultation: lungs clear to auscultation bilaterally and + crackles (Minimal crackles at the bases) Cardiovascular Rate/Rhythm: regular rate and regular rhythm Heart Sounds: no murmur Extremities: no edema Gastrointestinal (Abdomen) Inspection/Auscultation: abdomen normal to inspection and normal bowel sounds Percussion/Palpation: abdomen soft; abdomen nontender Neurologic moves all extremities; no focal motor deficits Psychiatric Orientation: alert and oriented x 3 Lymphatic no cervical or axillary lymphadenopathy Discharge Data Allergies Allergy/AdvReac Type Severity Reaction Status Date / Time omeprazole Allergy Unknown distal Verified 12/07/19 11:41 edema-none with pantoprozole Consultations 12/07/19 14:48 ED Decision to Admit Stat 12/07/19 16:32 Consult Case Management - Discharge Planning Routine Ordered Studies 12/07/19 13:10 CT abd pelvis wo con Stat Hospital Course (1) UTI (urinary tract infection): This is a 89-year-old female from [facility] with a PMH of recurrent UTI growing Klebsiella, paroxysmal atrial fibrillation and history of DVT on Coumadin, nonobstructive CAD, hypertension, CKD III and other medical problems listed below who presents with altered mental status and fatigue starting this morning and was found to have UTI. -Presenting with fatigue, possible confusion that has since resolved, some dysuria. Chronic urinary incontinence -UA grossly abnormal with positive leuk esterase, nitrite, 3+ blood, 4+ bacteria -History of recurrent UTI, most recently grew Klebsiella on urine culture in late Sep 2019 -Treating empirically with cefepime, awaiting culture results -CT abd/pelvis with nonobstructing left nephrolithiasis and mild left pelvocaliectasis and distention of the left ureter without gross evidence of an obstructing etiology. However, significant limitations in assessment of the distal left ureter due to regional streak artifact. It is difficult to exclude calculus or mass in the distal left ureter -Urine culture is growing gram-negative bacilli, further identification and sensitivity are pending -Urine is growing Klebsiella and antibiotic is changed to Keflex -Symptomatically much better -Clinically much improved and back to her baseline -Denies any urinary symptoms -We will continue oral antibiotic for 3 more days More confused at presentation Likely has metabolic encephalopathy in the setting of UTI, resolved Back to her baseline Likely discharge on Friday Labial tear No signs of infection Appreciate wound care input Needs to be better before discharge Dressing as per wound care recommendation Discussed with the wound care nurse Dressing instructions is in the chart (2) Supratherapeutic INR: INR of 4.7, recently had coumadin dose increased to 3.5mg daily- last dose yesterday afternoon -UA with 3+ blood but no mayito blood in urine sample, so will not give vitamin K for reversal at this time -Monitor closely for hematuria. Hold coumadin, monitor INR daily -INR is 4.5 today on 12/08/2019 and 3.0 as of 12/09/2019 -INR is 2.1 today -We will restart Coumadin from today -INR is 1.5 today -Continue current dose of anticoagulation (3) Paroxysmal atrial fibrillation: EKG with normal sinus rhythm -Continue Toprol -Holding coumadin in setting of supratherapeutic INR -Rate remains controlled (4) HTN (hypertension): Normotensive at 119/59 -Continue Toprol with hold parameters (5) Anxiety: (6) Depression: Continue SSRI DVT Ppx: SCDs, holding coumadin with supratherapeutic INR Code status: DNR per chart review, discussion with patient PCP: Vinnie Dispo: Admitted to med/surg. Discharge planning ordered to coordinate return to [facility] once medically appropriate. Remains stable and discussed with her son yesterday We will get PT and OT evaluation and possible discharge in a day or 2 Will be transferred to [facility] this afternoon Total Time Total Time Spent Total Time Spent (In Minutes): 35 minutes Total Time Includes: Examination of the Patient, Discharge Planning, Medication Reconciliation and Communication With Other Providers Discharge Plan Discharge Items Patient Disposition: Personal Snf Reason For Visit: UTI AMS HEMATURIA W/SUPRATHERAPEUTIC INR Discharge Diagnosis: UTI, acute confusion secondary-resolved, PAF on Coumadin, hypertension Condition on Discharge: Good Activity: Resume your previous activity Non-emergency contact: Primary Care Provider Call non-emergency contact if: you have any medication questions Follow-up/Referrals: MAURICE ESPINOSA [Primary Care Provider] - (Jovon to call and schedule discharge follow-up appt for pt. Pt needs to be seen within 7 days of discharge from hospital. ) Diet: Heart Healthy Diet Texture: Dental soft (bite-sized) Addtl Attending Provider Instructions: Please take precaution to avoid falls Try to drink more fluid Keep the perineal area clean and dry Your INR is 1.5 today. Continue to take your Coumadin as directed and have INR checked periodically to keep INR between 2-3 Can check INR tomorrow. Pending Studies at Discharge: No Stand-Alone Forms: Uro Jock, Smoking Cessation Skilled Items Patient informed of condition?: Yes DNR: Yes Discharge Level of Care: Other Communicable Disease: No Discharge Prognosis: Stable Lines: None Urinary Catheter: No Medications and DC Order Prescriptions: New cephalexin 500 mg Capsule 500 mg PO BID 3 Days Qty: 6 RF: 0 Continued pantoprazole [Protonix] 40 mg Tablet,Delayed Release (Dr/Ec) 40 mg PO DAILY@1200 Qty: 0 RF: 0 mirtazapine 15 mg Tablet 15 mg PO HS Qty: 0 RF: 0 acetaminophen 325 mg Tablet 650 mg PO Q4H PRN (Reason: Pain) Qty: 0 RF: 0 gabapentin 100 mg Capsule 100 mg PO HS Qty: 0 RF: 0 ferrous sulfate 325 mg (65 mg iron) Tablet 325 mg PO BID 30 Days Qty: 60 RF: 3 metoprolol succinate 25 mg tablet extended release 24 hr 12.5 mg PO DAILY@1200 RF: 0 alendronate 70 mg tablet 70 mg PO WE RF: 0 escitalopram oxalate 20 mg tablet 20 mg PO DAILY@1200 RF: 0 potassium chloride [Klor-Con M10] 10 mEq tablet,ER particles/crystals 10 meq PO DAILY@1200 RF: 0 warfarin 2.5 mg Tablet 3.5 mg PO DAILY@1600 RF: 0 Discontinued tramadol 50 mg tablet 50 mg PO Q4H PRN (Reason: Pain) RF: 0 Discharge Orders: Discharge Order (Routine); Ordered 12/13/19 Ordered By: Ana Conde Admission Data Admit Date/Time: 12/07/19 15:03 Attending Provider: Ana Conde Admit Provider: Ana Conde Primary Care Provider: MAURICE ESPINOSA Other Providers: Ana Conde ; [facility] Other Interventions: Discharge Summary Assessment (RN) Last Done: 12/13/19 13:08 DC Date/Time DO NOT enter until pt leaves facility: 12/13/19 16:55
== END 2019-12-13 16:55 | disposition home or self-care (01) | DRG 689 ==
LOC: ED 10:57 → 4W 15:03

== ENCOUNTER 2021-05-01 10:52 | Observation (INO) ==
[2021-05-01 12:20] LABS: Basophils # (auto) 0.01 K/uL (0-0.2); Basophils % (auto) 0.1 %; Eosinophils # (auto) 0.19 K/uL (0-0.5); Eosinophils % (auto) 2.2 %; Hematocrit (blood only) 40.9 % (37-47); Hemoglobin 13.5 g/dL (12.0-16.0); Immature Granulocytes # (auto) 0.02 K/uL (0.00-0.02); Immature Granulocytes % (auto) 0.2 %; Lymphocytes # (auto) 0.88 K/uL (1.2-3.4); Lymphocytes % (auto) 10.3 %; Mean Corpuscular Hemoglobin 34.2 pg (25-34); Mean Corpuscular Volume 103.5 fL (80-100); Monocytes # (auto) 0.54 K/uL (0.11-0.59); Monocytes % (auto) 6.3 %; Neutrophils # (auto) 6.88 K/uL (1.4-6.5); Neutrophils % (auto) 80.9 %; Platelet Count 191 K/uL (130-400); RDW Coefficient of Variation 13.8 % (11.5-14.5); RDW Standard Deviation 52.4 fL (36.4-46.3); Red Blood Count 3.95 M/uL (4.2-5.4); White Blood Count 8.52 K/uL (4.8-10.8)
[2021-05-01 12:30] LABS: INR 3.3 (0.9-1.1); Partial Thromboplastin Ratio 1.7; Partial Thromboplastin Time 44.9 Seconds (21.0-31.0); Prothrombin Time 30.7 Seconds (9.0-12.0)
[2021-05-01 12:39] LABS: Albumin Level 3.1 gm/dl (3.4-5.0); BUN Creatinine Ratio 13.3 (10-20); Calcium 9.1 mg/dl (8.5-10.1); Creatinine Clr Calc Pharmacy 27.7 ml/min; Est GFR (African American) 50.8 ml/min; Est GFR (Non-African American) 43.8 ml/min; Potassium 3.8 mmol/L (3.5-5.1)
[2021-05-01 12:42] LABS: Albumin Globulin Ratio 0.8 (0.9-2); Bilirubin,Total 0.9 mg/dl (0.2-1); Globulin 4.1 gm/dl (2.5-4.0); Total Protein 7.2 gm/dl (6.4-8.2)
--- NOTE | 2021-05-01 13:30 | CT Scan Report ---
CT SCAN OF THE ABDOMEN AND PELVIS WITHOUT CONTRAST CLINICAL HISTORY: Gi bleed COMPARISON STUDY: December 07, 2019 TECHNIQUE: CT scan of the abdomen and pelvis was performed from the lung bases to the proximal femurs . Images are reviewed in the axial, sagittal, and coronal planes. IV contrast was not administered fo r this examination. A dose lowering technique was utilized adhering to the principles of ALARA. CT DOSE: 413.14 mGycm FINDINGS: Lower chest: There is moderate respiratory motion artifact. There are minor basilar atelectatic kumar es Liver: There is pneumobilia, likely secondary to a prior sphincterotomy. No focal hepatic masses are visualized in this noncontrast study Gallbladder: Surgically absent Spleen: Normal in size and attenuation. Pancreas: Unremarkable. Adrenal glands: Unremarkable. Kidneys: There is left-sided nephrolithiasis. There is mild fullness of the left renal collecting sys tem and pelvis similar to the prior study. No ureteral calculi are visualized. Bowel: There are no transition zones indicate bowel obstruction. By history the appendix is surgicall y absent. There is no evidence of acute diverticulitis. Peritoneum: There is no intraperitoneal free air or abdominal ascites. Vasculature: The abdominal aorta is normal in course and caliber. Adenopathy: None. 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 There is an indwelling Rowell catheter. No pathologic pelvic masses are visualized. Skeletal structures: Postsurgical changes are present within the spine and left hip IMPRESSION: 1. No acute intra-abdominal or pelvic findings 2. No evidence of bowel obstruction. No evidence of free air 3. No evidence of pathologic adenopathy 4. Left-sided nephrolithiasis ACT 112: Negative or not required by law. Electronically signed by: Eliel Adkins M.D. 05/01/2021 1:29 PM
--- NOTE | 2021-05-01 13:53 | Emergency Department Note ---
Impression & Plan Acute GI bleeding, Anticoagulated on Coumadin, High serum chloride ED Provider Note NAME: ADELA MATOS AGE: 89 SEX: F : 1930 ARRIVES VIA: Ambulance INFORMANT: Patient, care takers ED PROVIDER(S): Tong Sanches DO CHIEF COMPLAINT: Blood in stool HPI: Patient is an 89-year-old female with a past medical history of paroxysmal A. fib, NSTEMI, sciatica, depression, CAD and dementia that presents the ER from [facility] for GI bleed. This morning she had a black bowel movement with bright red blood present. She has no complaints at this time. She denies any headache or change in vision. No chest pain or shortness of breath. No nausea vomiting or diarrhea. History is limited secondary to dementia but when Talha denies any vomiting or diarrhea. Patient does take iron. ROS: See above HPI for pertinent positives & negatives. A total of 10 systems reviewed and were otherwise negative. PAST MEDICAL HISTORY:See Below PAST SURGICAL HISTORY:See Below FAMILY HISTORY:See Below SOCIAL HISTORY:See Below HOME MEDICATIONS:See Below ALLERGIES:See Below VITALS:See Below PHYSICAL EXAMINATION: GENERAL: Sitting up in bed, alert, well appearing for stated age EYE EXAM: normal conjunctiva. PERRL and EOM's grossly intact. OROPHARYNX: mucous membranes are moist NECK: supple, no nuchal rigidity, no adenopathy, non-tender LUNGS: Clear to auscultation. Normal chest wall mechanics HEART: no murmurs, S1 normal and S2 normal ABDOMEN: abdomen soft, non-tender, normo-active bowel sounds, no masses, no rebound or guarding. RECTAL: Performed with nurse Scales at bedside RN. Black stool with a small amount of blood heme positive UPPER EXTREMITIES: upper extremities are grossly normal. LOWER EXTREMITIES: No pitting edema. NEURO EXAM: Oriented to person place but not year, pleasantly demented,, cranial nerves II-XII grossly intact, normal speech, no gross weakness of arms, no gross weakness of legs. MEDICAL DECISION MAKING: Patient is an 89-year-old female with extensive past medical history as stated above on Coumadin for paroxysmal A. fib who presents the ER for dark stools combination with bright red blood per [facility]. IV was established blood work was obtained. Labs showed no significant leukocytosis or anemia. Hemoglobin stable at 13. INR was at 3.3 and slightly elevated. BMP with a slightly elevated chloride. LFTs bilirubin was unremarkable. Patient was typed and screened. Vitals were stable. No significant belly pain on exam. CT abdomen pelvis was unremarkable. Rectally she was heme positive although faintly and likely secondary to the bright red blood rather than the dark tarry stool which I question is secondary to iron tablets. Did not actively reverse the patient as there was minimal heme positive stool and hemoglobin is stable as well as vitals. BUN was also normal which does not support an upper GI bleed. With the patient's age, history and on Coumadin did elect to discuss with hospitalist for observation as I felt this was reasonable. Triage Nursing notes reviewed. Limited review of prior medical records performed Vital Signs: reviewed and remarkable for no significant abnormalities Differential diagnosis: Differential diagnosis includes etiologies such as diverticulitis, diverticulosis, AVM, coagulopathy, colitis, inflammatory bowel disease, malignancy, Pema-Bundy tear, esophagitis, peptic ulcer disease, variceal bleed, gastritis, epistaxis, fissure, hemorrhoids, as well as others were entertained. ER treatment provided: See below Diagnostics interpreted by me: ECG: Sinus rhythm rate of 75 Normal axis No PVCs T wave flattening in aVL QTC 446 Cardiac Monitoring: An order was placed for continuous cardiac monitoring. The monitor shows a rate of 72 with sinus rhythm. Laboratory studies: As stated above and show below. Imaging studies: CT abdomen pelvis was unremarkable Consultation(s): Discussed with hospitalist for further evaluation Procedures: none Critical Care: None Past Med/Surg History Medical History (Updated 05/01/21 @ 14:32 by Tong Sanches DO) Anticoagulated on Coumadin CAD (coronary artery disease) Chronic pain Depression GERD (gastroesophageal reflux disease) History of DVT (deep vein thrombosis) HLD (hyperlipidemia) HTN (hypertension) Hypothyroidism Migraines Nephrolithiasis NSTEMI (non-ST elevated myocardial infarction) OAB (overactive bladder) Osteoarthritis Paroxysmal atrial fibrillation Sciatica Supratherapeutic INR Surgical History H/O lithotripsy 05/29/18. LMA #4. H/O total hip arthroplasty History of appendectomy History of cataract surgery History of lumbar surgery History of total hip arthroplasty LEFT History of total knee replacement RIGHT Family History Mother , 70 Pancreatic cancer Father Coronary heart disease Social History Smoking Status: Never smoker Second Hand Exposure: No; Hx Alcohol Use: No Hx Substance Use: No Preferred Language: Welsh Communication Ability: Effective Nurse Outreach Case Manager Required: No Beliefs That Will Affect Care: None marital status: / Current Living Situation: Personal Care Facility Current Living Situation Comment: [facility] How many Children do You have: 2 Feels Safe at Home: Yes Assistive Devices: Glasses Allergies Allergies Allergy/AdvReac Type Severity Reaction Status Date / Time omeprazole Allergy Unknown distal Verified 05/27/20 15:56 edema-none with pantoprozole Home Meds Home Medications Medication Instructions Recorded Confirmed pantoprazole [Protonix] 40 mg PO QDL #0 12/27/15 05/27/20 acetaminophen 650 mg PO Q4H PRN #0 MDD 3 01/08/17 05/27/20 GRAMS/24 HOURS mirtazapine 15 mg PO HS #0 tab 01/08/17 05/27/20 gabapentin 100 mg PO HS #0 03/10/18 05/27/20 ferrous sulfate 325 mg PO BID 30 Days #60 tab 04/08/18 05/27/20 alendronate 70 mg PO WK 02/24/19 05/27/20 escitalopram oxalate 20 mg PO QDL 02/24/19 05/27/20 metoprolol succinate 12.5 mg PO QDL 08/08/19 05/27/20 potassium chloride [Klor-Con M10] 10 meq PO QDL 12/07/19 05/27/20 tramadol 50 mg PO Q4H PRN 05/27/20 05/27/20 warfarin 2 mg PO QPM 05/27/20 05/27/20 Results & Data (ED) Vital Signs Vital Signs - 24 hr 05/01/21 10:56 05/01/21 10:59 05/01/21 11:00 Temperature Temperature Source Pulse Rate 78 75 77 Pulse Rate from SpO2 Sensor 77 75 76 Respiratory Rate 18 20 21 Respiratory Depth Blood Pressure 136/66 Blood Pressure Mean 89 Blood Pressure Position Pulse Oximetry 93 94 93 Oxygen Delivery Method Room Air Room Air Sepsis Recent Fever Within 48 Hours Sepsis New/Unexplained Change in Mental Status Sepsis Action Taken by Nursing 05/01/21 11:01 05/01/21 11:30 05/01/21 12:00 Temperature 37.1 C Temperature Source Oral Pulse Rate 76 75 71 Pulse Rate from SpO2 Sensor 75 71 Respiratory Rate 18 18 15 Respiratory Depth Normal Blood Pressure 136/66 Blood Pressure Mean 89 Blood Pressure Position Lying Pulse Oximetry 93 94 94 Oxygen Delivery Method Room Air Room Air Room Air Sepsis Recent Fever Within 48 Hours No Sepsis New/Unexplained Change in Mental Status N/A Sepsis Action Taken by Nursing No Action Required 05/01/21 12:30 05/01/21 12:35 05/01/21 12:52 Temperature Temperature Source Pulse Rate 74 70 Pulse Rate from SpO2 Sensor 70 Respiratory Rate 14 15 Respiratory Depth Blood Pressure 110/63 Blood Pressure Mean 78 Blood Pressure Position Pulse Oximetry 94 95 Oxygen Delivery Method Room Air Room Air Room Air Sepsis Recent Fever Within 48 Hours Sepsis New/Unexplained Change in Mental Status Sepsis Action Taken by Nursing 05/01/21 13:00 Temperature Temperature Source Pulse Rate 69 Pulse Rate from SpO2 Sensor 69 Respiratory Rate 17 Respiratory Depth Blood Pressure 114/56 L Blood Pressure Mean 75 Blood Pressure Position Pulse Oximetry 95 Oxygen Delivery Method Room Air Sepsis Recent Fever Within 48 Hours Sepsis New/Unexplained Change in Mental Status Sepsis Action Taken by Nursing Laboratory Data Result diagrams: 05/01/21 12:12 05/01/21 12:12 Lab Results 05/01/21 05/01/21 05/01/21 Range/Units 12:12 12:12 12:12 WBC 8.52 (4.8-10.8) K/uL RBC 3.95 L (4.2-5.4) M/uL Hgb 13.5 (12.0-16.0) g/dL Hct 40.9 (37-47) % MCV 103.5 H (80-100) fL MCH 34.2 H (25-34) pg MCHC 33.0 (32-36) g/dL RDW Std Deviation 52.4 H (36.4-46.3) fL RDW Coeff of Demetrio 13.8 (11.5-14.5) % Plt Count 191 (130-400) K/uL MPV 9.0 (7.4-10.4) fL Immature Gran % (Auto) 0.2 % Neut % (Auto) 80.9 % Lymph % (Auto) 10.3 % [place] % (Auto) 6.3 % Eos % (Auto) 2.2 % Baso % (Auto) 0.1 % Neut # (Auto) 6.88 H (1.4-6.5) K/uL Lymph # (Auto) 0.88 L (1.2-3.4) K/uL [place] # (Auto) 0.54 (0.11-0.59) K/uL Eos # (Auto) 0.19 (0-0.5) K/uL Baso # (Auto) 0.01 (0-0.2) K/uL Immature Gran # (Auto) 0.02 (0.00-0.02) K/uL PT 30.7 H (9.0-12.0) Seconds INR 3.3 H (0.9-1.1) APTT 44.9 H (21.0-31.0) Seconds PTT Ratio 1.7 Sodium (136-145) mmol/L Potassium (3.5-5.1) mmol/L Chloride (98-107) mmol/L Carbon Dioxide (21-32) mmol/L Anion Gap (3-11) BUN (7-18) mg/dl Creatinine (0.6-1.2) mg/dl Est Cr Clr Drug Dosing ml/min Est GFR ( Amer) ml/min Est GFR (Non-Af Amer) ml/min BUN/Creatinine Ratio (10-20) Glucose (70-99) mg/dl Calcium (8.5-10.1) mg/dl Total Bilirubin (0.2-1) mg/dl AST (15-37) U/L ALT (12-78) U/L Alkaline Phosphatase (45-117) U/L Total Protein (6.4-8.2) gm/dl Albumin (3.4-5.0) gm/dl Globulin (2.5-4.0) gm/dl Albumin/Globulin Ratio (0.9-2) Blood Type O Positive Antibody Screen NEGATIVE 05/01/21 Range/Units 12:12 WBC (4.8-10.8) K/uL RBC (4.2-5.4) M/uL Hgb (12.0-16.0) g/dL Hct (37-47) % MCV (80-100) fL MCH (25-34) pg MCHC (32-36) g/dL RDW Std Deviation (36.4-46.3) fL RDW Coeff of Demetrio (11.5-14.5) % Plt Count (130-400) K/uL MPV (7.4-10.4) fL Immature Gran % (Auto) % Neut % (Auto) % Lymph % (Auto) % [place] % (Auto) % Eos % (Auto) % Baso % (Auto) % Neut # (Auto) (1.4-6.5) K/uL Lymph # (Auto) (1.2-3.4) K/uL [place] # (Auto) (0.11-0.59) K/uL Eos # (Auto) (0-0.5) K/uL Baso # (Auto) (0-0.2) K/uL Immature Gran # (Auto) (0.00-0.02) K/uL PT (9.0-12.0) Seconds INR (0.9-1.1) APTT (21.0-31.0) Seconds PTT Ratio Sodium 143 (136-145) mmol/L Potassium 3.8 (3.5-5.1) mmol/L Chloride 111 H (98-107) mmol/L Carbon Dioxide 28 (21-32) mmol/L Anion Gap 4.0 (3-11) BUN 15 (7-18) mg/dl Creatinine 1.12 (0.6-1.2) mg/dl Est Cr Clr Drug Dosing 27.7 ml/min Est GFR ( Amer) 50.8 ml/min Est GFR (Non-Af Amer) 43.8 ml/min BUN/Creatinine Ratio 13.3 (10-20) Glucose 96 (70-99) mg/dl Calcium 9.1 (8.5-10.1) mg/dl Total Bilirubin 0.9 (0.2-1) mg/dl AST 12 L (15-37) U/L ALT 14 (12-78) U/L Alkaline Phosphatase 77 (45-117) U/L Total Protein 7.2 (6.4-8.2) gm/dl Albumin 3.1 L (3.4-5.0) gm/dl Globulin 4.1 H (2.5-4.0) gm/dl Albumin/Globulin Ratio 0.8 L (0.9-2) Blood Type Antibody Screen Imaging Data Radiologist's Impression: Abdomen/Pelvis CT 05/01/21 12:11 CT SCAN OF THE ABDOMEN AND PELVIS WITHOUT CONTRAST CLINICAL HISTORY: Gi bleed COMPARISON STUDY: December 07, 2019 TECHNIQUE: CT scan of the abdomen and pelvis was performed from the lung bases to the proximal femurs. Images are reviewed in the axial, sagittal, and coronal planes. IV contrast was not administered for this examination. A dose lowering technique was utilized adhering to the principles of ALARA. CT DOSE: 413.14 mGycm FINDINGS: Lower chest: There is moderate respiratory motion artifact. There are minor basilar atelectatic changes Liver: There is pneumobilia, likely secondary to a prior sphincterotomy. No focal hepatic masses are visualized in this noncontrast study Gallbladder: Surgically absent Spleen: Normal in size and attenuation. Pancreas: Unremarkable. Adrenal glands: Unremarkable. Kidneys: There is left-sided nephrolithiasis. There is mild fullness of the left renal collecting system and pelvis similar to the prior study. No ureteral calculi are visualized. Bowel: There are no transition zones indicate bowel obstruction. By history the appendix is surgically absent. There is no evidence of acute diverticulitis. Peritoneum: There is no intraperitoneal free air or abdominal ascites. Vasculature: The abdominal aorta is normal in course and caliber. Adenopathy: None. 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 There is an indwelling Rowell catheter. No pathologic pelvic masses are visualized. Skeletal structures: Postsurgical changes are present within the spine and left hip IMPRESSION: 1. No acute intra-abdominal or pelvic findings 2. No evidence of bowel obstruction. No evidence of free air 3. No evidence of pathologic adenopathy 4. Left-sided nephrolithiasis ACT 112: Negative or not required by law. Electronically signed by: Eliel Adkins M.D. 05/01/2021 1:29 PM Discharge Plan Visit Data Chief Complaint: GI Bleed Stated Complaint: BLOOD IN STOOL ED Provider: Tong Sanches Discharge Problem: Acute GI bleeding, Anticoagulated on Coumadin, High serum chloride Forms Stand Alone Forms: Quotations Book Prescriptions Prescriptions: No Action pantoprazole [Protonix] 40 mg Tablet,Delayed Release (Dr/Ec) 40 mg PO QDL Qty: 0 RF: 0 mirtazapine 15 mg Tablet 15 mg PO HS Qty: 0 RF: 0 acetaminophen 325 mg Tablet 650 mg PO Q4H MDD 3 GRAMS/24 HOURS PRN (Reason: Fever Or Pain) Qty: 0 RF: 0 gabapentin 100 mg Capsule 100 mg PO HS Qty: 0 RF: 0 ferrous sulfate 325 mg (65 mg iron) Tablet 325 mg PO BID 30 Days Qty: 60 RF: 3 metoprolol succinate 25 mg tablet extended release 24 hr 12.5 mg PO QDL RF: 0 alendronate 70 mg tablet 70 mg PO WE RF: 0 escitalopram oxalate 20 mg tablet 20 mg PO QDL RF: 0 potassium chloride [Klor-Con M10] 10 mEq tablet,ER particles/crystals 10 meq PO QDL RF: 0 warfarin 2 mg tablet 2 mg PO QPM RF: 0 tramadol 50 mg tablet 50 mg PO Q4H PRN (Reason: Pain) RF: 0
--- NOTE | 2021-05-01 14:00 | History & Physical Report ---
Date of Service May 01, 2021 Assessment & Plan (1) Bright red blood per rectum: This is a 89-year-old female from [facility] with paroxysmal atrial fibrillation and history of DVT on Coumadin, nonobstructive CAD, hypertension, CKD III, history of recurrent UTI, urinary incontinence with indwelling catheter, dementia and other medical problems listed below who presents with episode of bright red blood per rectum this morning. (2) Supratherapeutic INR: (3) History of DVT (deep vein thrombosis): (4) Paroxysmal atrial fibrillation: (5) HTN (hypertension): (6) CAD (coronary artery disease): (7) Hypothyroidism: (8) Depression: This is a 89-year-old female from [facility] with paroxysmal atrial fibrillation and history of DVT on Coumadin, nonobstructive CAD, hypertension, CKD III, history of recurrent UTI and other medical problems listed below who presents with blood in stool this morning. Bright red blood per rectum Supratherapeutic INR Hemodynamically stable, asymptomatic, hemoglobin at baseline of 13.5 Reported episode of BRBPR this morning - has black stool at baseline with iron supplementation Is on Coumadin for paroxysmal atrial fibrillation with INR of 3.3 Protonix IV 40mg BID Holding coumadin Routine GI consult NPO for now Paroxysmal atrial fibrillation EKG with normal sinus rhythm Continue Toprol Holding coumadin in setting of supratherapeutic INR Hypertension Normotensive. Continue Toprol with hold parameters Urinary incontinence with indwelling simpson H/o klebsiella UTI Simpson catheter exchanged yesterday, per staff UA pending Anxiety Depression Continue SSRI DVT Ppx: SCDs, holding coumadin with supratherapeutic INR Code status: DNR per chart review, discussion with patient PCP: Vinnie Dispo: Observation PCU. Discharge planning ordered to coordinate return to [facility] once medically appropriate. Patient seen in collaboration with Dr. Conde. Please see addendum. History of Present Illness Chief Complaint: Blood in stool Primary Care Provider: [facility] This is a 89-year-old female from [facility] in [place] with paroxysmal atrial fibrillation and history of DVT on Coumadin, nonobstructive CAD, hypertension, CKD III, history of recurrent UTI, urinary incontinence with indwelling catheter, dementia and other medical problems listed below who presents with episode of bright red blood per rectum this morning. Per discussion with nursing staff, bed pad was covered in bright red blood when they woke her up this morning. She then had episode of black stool with bright red blood mixed in. Staff states her stool is usually that black color due to iron supplementation. Is on coumadin for history of DVT and paroxysmal A fib. Staff called EMS and patient was brought to ED for further evaluation. Patient with confusion during interview. Staff states she has intermittent confusion at baseline and it usually worsens in setting of infection. Does not remember having blood in stool. Denies any pain. Is currently oriented to person but not to place, time or situation. Denies any nausea, vomiting or abdominal pain. No fever, chills, lightheadedness, headache, chest pain, shortness of breath, dysuria or constipation. Allergies Allergy/AdvReac Type Severity Reaction Status Date / Time omeprazole Allergy Unknown distal Verified 05/01/21 14:09 edema-none with pantoprozole Home Medications Medication Instructions Recorded Confirmed Type pantoprazole [Protonix] 40 mg PO QDL #0 12/27/15 05/01/21 History acetaminophen 650 mg PO Q4H PRN #0 MDD 3 01/08/17 05/01/21 History GRAMS/24 HOURS mirtazapine 15 mg PO HS #0 tab 01/08/17 05/01/21 History gabapentin 100 mg PO HS #0 03/10/18 05/01/21 History ferrous sulfate 325 mg PO BID 30 Days #60 tab 04/08/18 05/01/21 History alendronate 70 mg PO WE 02/24/19 05/01/21 History escitalopram oxalate 20 mg PO QDL 02/24/19 05/01/21 History metoprolol succinate 12.5 mg PO QDL 08/08/19 05/01/21 History potassium chloride [Klor-Con M10] 10 meq PO QDL 12/07/19 05/01/21 History tramadol 50 mg PO Q4H PRN 05/27/20 05/01/21 History silver sulfadiazine 1 applic TOPICAL BID PRN 05/01/21 05/01/21 History warfarin 3 mg PO DAILY@1600 05/01/21 05/01/21 History Past Med/Surg History Medical History (Updated 05/01/21 @ 17:26 by Maria Esther Davenport PA-C) CAD (coronary artery disease) Chronic pain Depression GERD (gastroesophageal reflux disease) History of DVT (deep vein thrombosis) HLD (hyperlipidemia) HTN (hypertension) Hypothyroidism Migraines Nephrolithiasis NSTEMI (non-ST elevated myocardial infarction) OAB (overactive bladder) Osteoarthritis Paroxysmal atrial fibrillation Sciatica Supratherapeutic INR Surgical History H/O lithotripsy 05/29/18. LMA #4. H/O total hip arthroplasty History of appendectomy History of cataract surgery History of lumbar surgery History of total hip arthroplasty LEFT History of total knee replacement RIGHT Family History Mother , 70 Pancreatic cancer Father Coronary heart disease Social History Smoking Status: Never smoker Second Hand Exposure: No; Hx Alcohol Use: No Hx Substance Use: No Preferred Language: Yoruba Communication Ability: Effective Communication Ability Comment: hard of hearing Senior Software Architect Required: No Beliefs That Will Affect Care: None marital status: / Current Living Situation: Personal Care Facility Current Living Situation Comment: [facility] How many Children do You have: 2 Other Information That Helps Us Care for You: No Feels Safe at Home: Yes Safety Concerns: Feels Safe At This Time Assistive Devices: Glasses Review of Systems Review of Systems: At least ten systems reviewed and negative except as noted in the HPI. Physical Exam Physical Exam: General Appearance: WD/WN, vitals as above, NAD, sitting up in bed, pleasantly confused but able to answer some yes/no questions Head: normocephalic, atraumatic Eyes: normal inspection, PERRL, conjunctivae normal, anicteric sclerae ENT: external ear and nose normal, oropharynx normal Neck: normal visual inspection, trachea midline, no thyromegaly Respiratory: normal respiratory effort, lungs clear to auscultation, no wheeze, rales, rhonchi. No accessory muscle use Cardiovascular: regular rate, rhythm, no murmur, normal peripheral pulses, no BLE edema. Vessels: no JVD Chest: normal inspection of chest Abdomen/GI: normal bowel sounds, soft, nontender, no hepatosplenomegaly : Simpson catheter in place Extremities/Musculoskeletal: no cyanosis or clubbing, extremities motor strength 5/5 Neurologic: PERRL, EOMI, accommodation nl, no face palsy, no dysarthria, CN's II-XI intact bilaterally and moves all extremities Psychiatric: A+Ox3, euthymic affect Skin: no rashes, normal color, warm/dry Results & Data Results & Data ([facility]) Vital Signs (Past 12 Hours) Vital Signs Temp Pulse Resp BP Pulse Ox 05/01/21 13:00 69 17 114/56 L 95 05/01/21 12:52 95 05/01/21 12:35 70 15 110/63 94 05/01/21 12:30 74 14 05/01/21 12:00 71 15 94 05/01/21 11:30 75 18 94 05/01/21 11:01 37.1 C 76 18 136/66 93 05/01/21 11:00 77 21 93 05/01/21 10:59 75 20 94 05/01/21 10:56 78 18 136/66 93 Laboratory Results Short CBC 05/01/21 Range/Units 12:12 WBC 8.52 (4.8-10.8) K/uL Hgb 13.5 (12.0-16.0) g/dL Hct 40.9 (37-47) % Plt Count 191 (130-400) K/uL BMP 05/01/21 12:12 Sodium 143 Potassium 3.8 Chloride 111 H Carbon Dioxide 28 BUN 15 Creatinine 1.12 Glucose 96 Calcium 9.1 Liver Function 05/01/21 Range/Units 12:12 Total Bilirubin 0.9 (0.2-1) mg/dl AST 12 L (15-37) U/L ALT 14 (12-78) U/L Alkaline Phosphatase 77 (45-117) U/L Albumin 3.1 L (3.4-5.0) gm/dl Diagnostic Findings Abdomen/Pelvis CT 05/01/21 12:11 CT SCAN OF THE ABDOMEN AND PELVIS WITHOUT CONTRAST CLINICAL HISTORY: Gi bleed COMPARISON STUDY: December 07, 2019 TECHNIQUE: CT scan of the abdomen and pelvis was performed from the lung bases to the proximal femurs. Images are reviewed in the axial, sagittal, and coronal planes. IV contrast was not administered for this examination. A dose lowering technique was utilized adhering to the principles of ALARA. CT DOSE: 413.14 mGycm FINDINGS: Lower chest: There is moderate respiratory motion artifact. There are minor basilar atelectatic changes Liver: There is pneumobilia, likely secondary to a prior sphincterotomy. No focal hepatic masses are visualized in this noncontrast study Gallbladder: Surgically absent Spleen: Normal in size and attenuation. Pancreas: Unremarkable. Adrenal glands: Unremarkable. Kidneys: There is left-sided nephrolithiasis. There is mild fullness of the left renal collecting system and pelvis similar to the prior study. No ureteral calculi are visualized. Bowel: There are no transition zones indicate bowel obstruction. By history the appendix is surgically absent. There is no evidence of acute diverticulitis. Peritoneum: There is no intraperitoneal free air or abdominal ascites. Vasculature: The abdominal aorta is normal in course and caliber. Adenopathy: None. 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 There is an indwelling Simpson catheter. No pathologic pelvic masses are visualized. Skeletal structures: Postsurgical changes are present within the spine and left hip IMPRESSION: 1. No acute intra-abdominal or pelvic findings 2. No evidence of bowel obstruction. No evidence of free air 3. No evidence of pathologic adenopathy 4. Left-sided nephrolithiasis ACT 112: Negative or not required by law. Electronically signed by: Eliel Adkins M.D. 05/01/2021 1:29 PM Supervising Physician Co-Signing Physician Notes Attending addendum: The patient was seen and examined in telemetry unit She is an 89-year-old female from [facility] with paroxysmal atrial fibrillation and history of DVT on Coumadin, nonobstructive CAD, hypertension, CKD III, history of recurrent UTI and other medical problems listed below who presents with blood in stool this morning. 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 Severe deafness. Pleasantly confused. Moving all limbs Admission labs, EKG and imaging studies reviewed Hemoglobin stable with INR slightly high at 3.3 No evidence of active bleeding and the bleeding seems to be from hemorrhoids Will not reverse anticoagulation-observe GI consulted Discussed with the son in detail Agree with assessment and plan as outlined above by ROSSI Odonnell Dr (1) CAD (coronary artery disease) Associated angina: without angina Coronary Disease-Associated Artery/Lesion type: [place] artery [place] vs. transplanted heart: [place] heart Qualified Code(s): I25.10 - Atherosclerotic heart disease of [place] coronary artery without angina pectoris (2) Depression Depression Type: unspecified Qualified Code(s): F32.9 - Major depressive disorder, single episode, unspecified (3) Hypothyroidism Hypothyroidism type: unspecified Qualified Code(s): E03.9 - Hypothyroidism, unspecified
[2021-05-01] MEDS ORDERED: ONDANSETRON INJ 2 MG/ML 2 ML VIAL IV PRN (16:42)
[2021-05-01] MEDS ORDERED: traMADol HCL 50 MG TABLET PO PRN (16:42)
[2021-05-01] MEDS ORDERED: ACETAMINOPHEN 325 MG TAB PO PRN ×2 (16:42)
[2021-05-01] MEDS ORDERED: SILVER SULFADIAZINE 1% CR 50 GM JAR TOP PRN (16:42)
[2021-05-01] MEDS ORDERED: SODIUM CHLORIDE 0.9% 1000ML 1,000 ML IV SCH (16:42)
[2021-05-01] MEDS ORDERED: POLYETHYLENE (MIRALAX) 17 GM PACK PO PRN (16:42)
[2021-05-01] MEDS: PANTOprazole 40 MG in SYRINGE 0 ML IV SCH ×2 (17:54→20:22)
[2021-05-01 18:01] LABS: Hematocrit (blood only) 41.2 % (37-47); Hemoglobin 13.6 g/dL (12.0-16.0)
[2021-05-01] MEDS: GABAPENTIN 100 MG CAP PO SCH (20:21)
[2021-05-01] MEDS: FERROUS SULFATE 325 MG TAB PO SCH (20:21)
[2021-05-01] MEDS: MIRTAZAPINE TAB 15 MG TAB PO SCH (20:21)
[2021-05-01 21:24] LABS: Hemoglobin 13.4 g/dL (12.0-16.0)
[2021-05-02] MEDS: PANTOprazole 40 MG in SYRINGE 0 ML IV SCH ×2 (08:39→19:27)
[2021-05-02 08:56] LABS: Hematocrit (blood only) 37.1 % (37-47); Hemoglobin 12.2 g/dL (12.0-16.0); Mean Corpuscular Hemoglobin 34.1 pg (25-34); Mean Corpuscular Hgb Conc 32.9 g/dL (32-36); Mean Corpuscular Volume 103.6 fL (80-100); Mean Platelet Volume 9.2 fL (7.4-10.4); Platelet Count 195 K/uL (130-400); RDW Coefficient of Variation 13.8 % (11.5-14.5); RDW Standard Deviation 51.9 fL (36.4-46.3); Red Blood Count 3.58 M/uL (4.2-5.4); White Blood Count 6.57 K/uL (4.8-10.8)
[2021-05-02 09:01] LABS: INR 2.5 (0.9-1.1); Prothrombin Time 23.6 Seconds (9.0-12.0)
[2021-05-02 09:13] LABS: Albumin Level 2.7 gm/dl (3.4-5.0); BUN Creatinine Ratio 11.5 (10-20); Calcium 8.4 mg/dl (8.5-10.1); Creatinine Clr Calc Pharmacy 29.5 ml/min; Est GFR (African American) 56.2 ml/min; Est GFR (Non-African American) 48.5 ml/min; Potassium 3.6 mmol/L (3.5-5.1)
[2021-05-02 09:16] LABS: Albumin Globulin Ratio 0.7 (0.9-2); Bilirubin,Total 1.1 mg/dl (0.2-1); Globulin 3.8 gm/dl (2.5-4.0); Total Protein 6.5 gm/dl (6.4-8.2)
--- NOTE | 2021-05-02 09:44 | Gastrointestinal Consultation ---
Date of Consultation May 02, 2021 Assessment & Plan (1) Bright red blood per rectum: 89 year old female with afib anticoagulated on coumadin, CAD, HTN, CKD3 admitted w/ BRBPR at [facility], HGB stable, VSS. Since admission, no further evidence of hematochezia. She does have formed, black stools at baseline due to chronic iron therapy. No acute indication to diagnostic endoscopy Did discuss EGD/Colon with pt who notes she is not interested in any diagnostic testing at this time She also is not sure if she would want EGD/Colonoscopy even if she had s/s of active GI bleeding Conservative management Suspected outlet bleeding given negative CTAP Trend HGB Bowel regimen to avoid constipation, straining PO PPI daily Correct INR to desired range Recall GI as needed. Thank you for allowing us to participate in the care of this patient. Please call with any acute changes, questions or concerns. Please see addendum below with additional recommendation from my supervising physician. Supervising Physician Co-Signing Physician Notes Attending attestation I have seen, examined this patient, and agree with the findings and above by our mid-level provider KATHRINE Ramirez, with the following additions: -Patient having green bowel movements today that are heme-negative. Patient does not want undergo colonoscopy. Her hemoglobin is stable. Would advance diet, will sign off. If bleeding returns discussed the merits of continuation of Coumadin. History of Present Illness Reason for Consultation: rectal bleeding Requesting Physician: Kevin Attending Physician: Melva Brown, DO History of Present Illness 89 year old female with history of DVT on Coumadin, HTN, CKD-3, CAD, recurrent UTI w/ indwelling catheter, dementia and others below who is admitted from [facility] w/ report of BRBPR. GI asked to evaluate. Pt was seen and evaluated, chart reviewed. Nursing at bedside. Pt awake, alert to self but poor historian. Notes she is feeling well. Denies abd pain. No nausea, vomiting. No GERD. Notes chronic dark stools on iron. Yesterday she had BRBPR reported by nursing staff so ED evaluation was recommended. This AM she denies any concern or complaints. No fever, chills, CP, SOB. Since admission, no evidence of recta bleeding and documented is formed, black stools. HGB stable. BUN WNL. CTAP 2020: No acute intra-abdominal or pelvic findings. No evidence of bowel obstruction. No evidence of free air. No evidence of pathologic adenopathy Left- sided nephrolithiasis. EGD 2014: Normal upper third of esophagus and middle third of esophagus.- Moderate Schatzki ring. Dilated to 45 Fr today.-Medium-sized hiatus hernia.- Gastritis. Biopsied Colonoscopy 2005: Diverticulosis. Evidence of focal colitis, at rectosigmoid junction. Suspect that this is secondary to NSAID colitis, although location may be consistent with ischemic disease. Differential includes IBD. Allergies Allergy/AdvReac Type Severity Reaction Status Date / Time omeprazole Allergy Unknown distal Verified 05/01/21 14:09 edema-none with pantoprozole Home Medications Medication Instructions Recorded Confirmed Type pantoprazole [Protonix] 40 mg PO QDL #0 12/27/15 05/01/21 History acetaminophen 650 mg PO Q4H PRN #0 MDD 3 01/08/17 05/01/21 History GRAMS/24 HOURS mirtazapine 15 mg PO HS #0 tab 01/08/17 05/01/21 History gabapentin 100 mg PO HS #0 03/10/18 05/01/21 History ferrous sulfate 325 mg PO BID 30 Days #60 tab 04/08/18 05/01/21 History alendronate 70 mg PO WE 02/24/19 05/01/21 History escitalopram oxalate 20 mg PO QDL 02/24/19 05/01/21 History metoprolol succinate 12.5 mg PO QDL 08/08/19 05/01/21 History potassium chloride [Klor-Con M10] 10 meq PO QDL 12/07/19 05/01/21 History tramadol 50 mg PO Q4H PRN 05/27/20 05/01/21 History silver sulfadiazine 1 applic TOPICAL BID PRN 05/01/21 05/01/21 History warfarin 3 mg PO DAILY@1600 05/01/21 05/01/21 History Patient History Medical History (Updated 05/01/21 @ 17:26 by Maria Esther Davenport PA-C) CAD (coronary artery disease) Chronic pain Depression GERD (gastroesophageal reflux disease) History of DVT (deep vein thrombosis) HLD (hyperlipidemia) HTN (hypertension) Hypothyroidism Migraines Nephrolithiasis NSTEMI (non-ST elevated myocardial infarction) OAB (overactive bladder) Osteoarthritis Paroxysmal atrial fibrillation Sciatica Supratherapeutic INR Surgical History H/O lithotripsy 05/29/18. LMA #4. H/O total hip arthroplasty History of appendectomy History of cataract surgery History of lumbar surgery History of total hip arthroplasty LEFT History of total knee replacement RIGHT Family History Mother , 70 Pancreatic cancer Father Coronary heart disease Social History Smoking Status: Never smoker Second Hand Exposure: No; Hx Alcohol Use: No Hx Substance Use: No Preferred Language: Uruguayan Communication Ability: Effective Communication Ability Comment: hard of hearing Manager Dental Required: No Beliefs That Will Affect Care: None marital status: / Current Living Situation: Personal Care Facility Current Living Situation Comment: [facility] How many Children do You have: 2 Other Information That Helps Us Care for You: No Feels Safe at Home: Yes Safety Concerns: Feels Safe At This Time Assistive Devices: Wheelchair Review of Systems Review of Systems: All systems reviewed & are unremarkable except as noted in HPI & below Physical Exam Constitutional: WD/WN, vitals as above no acute distress and not ill appearing Neck: trachea midline; no tracheal deviation and no neck crepitus Respiratory: normal respiratory effort, lungs clear to auscultation Cardiovascular: Rate/Rhythm: regular rate and regular rhythm Gastrointestinal (Abdomen): normal bowel sounds, soft, nontender, no hepatosplenomegaly Results & Data ([facility]) Vital Signs (Past 12 Hours) Vital Signs Temp Pulse Pulse Resp BP BP Pulse Ox 05/02/21 08:15 37.0 C 68 17 103/64 93 05/02/21 07:18 66 05/02/21 04:00 36.9 C 78 21 111/60 91 05/02/21 01:31 71 05/02/21 00:00 36.4 C L 77 18 160/59 H 93 Laboratory Results 05/02/21 05/02/21 05/02/21 Range/Units 08:31 08:31 08:31 WBC 6.57 (4.8-10.8) K/uL RBC 3.58 L (4.2-5.4) M/uL Hgb 12.2 (12.0-16.0) g/dL Hct 37.1 (37-47) % MCV 103.6 H (80-100) fL MCH 34.1 H (25-34) pg MCHC 32.9 (32-36) g/dL RDW Std Deviation 51.9 H (36.4-46.3) fL RDW Coeff of Demetrio 13.8 (11.5-14.5) % Plt Count 195 (130-400) K/uL MPV 9.2 (7.4-10.4) fL Immature Gran % (Auto) % Neut % (Auto) % Lymph % (Auto) % Webb % (Auto) % Eos % (Auto) % Baso % (Auto) % Neut # (Auto) (1.4-6.5) K/uL Lymph # (Auto) (1.2-3.4) K/uL Webb # (Auto) (0.11-0.59) K/uL Eos # (Auto) (0-0.5) K/uL Baso # (Auto) (0-0.2) K/uL Immature Gran # (Auto) (0.00-0.02) K/uL PT 23.6 H (9.0-12.0) Seconds INR 2.5 H (0.9-1.1) APTT (21.0-31.0) Seconds PTT Ratio Sodium 143 (136-145) mmol/L Potassium 3.6 (3.5-5.1) mmol/L Chloride 111 H (98-107) mmol/L Carbon Dioxide 28 (21-32) mmol/L Anion Gap 4.0 (3-11) BUN 12 (7-18) mg/dl Creatinine 1.03 (0.6-1.2) mg/dl Est Cr Clr Drug Dosing 29.5 ml/min Est GFR ( Amer) 56.2 ml/min Est GFR (Non-Af Amer) 48.5 ml/min BUN/Creatinine Ratio 11.5 (10-20) Glucose 91 (70-99) mg/dl Calcium 8.4 L (8.5-10.1) mg/dl Total Bilirubin 1.1 H (0.2-1) mg/dl AST 12 L (15-37) U/L ALT 13 (12-78) U/L Alkaline Phosphatase 64 (45-117) U/L Total Protein 6.5 (6.4-8.2) gm/dl Albumin 2.7 L (3.4-5.0) gm/dl Globulin 3.8 (2.5-4.0) gm/dl Albumin/Globulin Ratio 0.7 L (0.9-2) COVID-19 Eval Order SARS-CoV-2 (PCR) (Negative) Blood Type Antibody Screen 05/01/21 05/01/21 05/01/21 Range/Units 20:58 17:15 14:34 WBC (4.8-10.8) K/uL RBC (4.2-5.4) M/uL Hgb 13.4 13.6 (12.0-16.0) g/dL Hct 40.0 41.2 (37-47) % MCV (80-100) fL MCH (25-34) pg MCHC (32-36) g/dL RDW Std Deviation (36.4-46.3) fL RDW Coeff of Demetrio (11.5-14.5) % Plt Count (130-400) K/uL MPV (7.4-10.4) fL Immature Gran % (Auto) % Neut % (Auto) % Lymph % (Auto) % Webb % (Auto) % Eos % (Auto) % Baso % (Auto) % Neut # (Auto) (1.4-6.5) K/uL Lymph # (Auto) (1.2-3.4) K/uL Webb # (Auto) (0.11-0.59) K/uL Eos # (Auto) (0-0.5) K/uL Baso # (Auto) (0-0.2) K/uL Immature Gran # (Auto) (0.00-0.02) K/uL PT (9.0-12.0) Seconds INR (0.9-1.1) APTT (21.0-31.0) Seconds PTT Ratio Sodium (136-145) mmol/L Potassium (3.5-5.1) mmol/L Chloride (98-107) mmol/L Carbon Dioxide (21-32) mmol/L Anion Gap (3-11) BUN (7-18) mg/dl Creatinine (0.6-1.2) mg/dl Est Cr Clr Drug Dosing ml/min Est GFR ( Amer) ml/min Est GFR (Non-Af Amer) ml/min BUN/Creatinine Ratio (10-20) Glucose (70-99) mg/dl Calcium (8.5-10.1) mg/dl Total Bilirubin (0.2-1) mg/dl AST (15-37) U/L ALT (12-78) U/L Alkaline Phosphatase (45-117) U/L Total Protein (6.4-8.2) gm/dl Albumin (3.4-5.0) gm/dl Globulin (2.5-4.0) gm/dl Albumin/Globulin Ratio (0.9-2) COVID-19 Eval Order SARS-CoV-2 (PCR) NEGATIVE (Negative) Blood Type Antibody Screen 05/01/21 05/01/21 05/01/21 Range/Units 14:34 12:12 12:12 WBC (4.8-10.8) K/uL RBC (4.2-5.4) M/uL Hgb (12.0-16.0) g/dL Hct (37-47) % MCV (80-100) fL MCH (25-34) pg MCHC (32-36) g/dL RDW Std Deviation (36.4-46.3) fL RDW Coeff of Demetrio (11.5-14.5) % Plt Count (130-400) K/uL MPV (7.4-10.4) fL Immature Gran % (Auto) % Neut % (Auto) % Lymph % (Auto) % Webb % (Auto) % Eos % (Auto) % Baso % (Auto) % Neut # (Auto) (1.4-6.5) K/uL Lymph # (Auto) (1.2-3.4) K/uL Webb # (Auto) (0.11-0.59) K/uL Eos # (Auto) (0-0.5) K/uL Baso # (Auto) (0-0.2) K/uL Immature Gran # (Auto) (0.00-0.02) K/uL PT 30.7 H (9.0-12.0) Seconds INR 3.3 H (0.9-1.1) APTT 44.9 H (21.0-31.0) Seconds PTT Ratio 1.7 Sodium 143 (136-145) mmol/L Potassium 3.8 (3.5-5.1) mmol/L Chloride 111 H (98-107) mmol/L Carbon Dioxide 28 (21-32) mmol/L Anion Gap 4.0 (3-11) BUN 15 (7-18) mg/dl Creatinine 1.12 (0.6-1.2) mg/dl Est Cr Clr Drug Dosing 27.7 ml/min Est GFR ( Amer) 50.8 ml/min Est GFR (Non-Af Amer) 43.8 ml/min BUN/Creatinine Ratio 13.3 (10-20) Glucose 96 (70-99) mg/dl Calcium 9.1 (8.5-10.1) mg/dl Total Bilirubin 0.9 (0.2-1) mg/dl AST 12 L (15-37) U/L ALT 14 (12-78) U/L Alkaline Phosphatase 77 (45-117) U/L Total Protein 7.2 (6.4-8.2) gm/dl Albumin 3.1 L (3.4-5.0) gm/dl Globulin 4.1 H (2.5-4.0) gm/dl Albumin/Globulin Ratio 0.8 L (0.9-2) COVID-19 Eval Order Covid19 at [facility] SARS-CoV-2 (PCR) (Negative) Blood Type Antibody Screen 05/01/21 05/01/21 Range/Units 12:12 12:12 WBC 8.52 (4.8-10.8) K/uL RBC 3.95 L (4.2-5.4) M/uL Hgb 13.5 (12.0-16.0) g/dL Hct 40.9 (37-47) % MCV 103.5 H (80-100) fL MCH 34.2 H (25-34) pg MCHC 33.0 (32-36) g/dL RDW Std Deviation 52.4 H (36.4-46.3) fL RDW Coeff of Demetrio 13.8 (11.5-14.5) % Plt Count 191 (130-400) K/uL MPV 9.0 (7.4-10.4) fL Immature Gran % (Auto) 0.2 % Neut % (Auto) 80.9 % Lymph % (Auto) 10.3 % Webb % (Auto) 6.3 % Eos % (Auto) 2.2 % Baso % (Auto) 0.1 % Neut # (Auto) 6.88 H (1.4-6.5) K/uL Lymph # (Auto) 0.88 L (1.2-3.4) K/uL Webb # (Auto) 0.54 (0.11-0.59) K/uL Eos # (Auto) 0.19 (0-0.5) K/uL Baso # (Auto) 0.01 (0-0.2) K/uL Immature Gran # (Auto) 0.02 (0.00-0.02) K/uL PT (9.0-12.0) Seconds INR (0.9-1.1) APTT (21.0-31.0) Seconds PTT Ratio Sodium (136-145) mmol/L Potassium (3.5-5.1) mmol/L Chloride (98-107) mmol/L Carbon Dioxide (21-32) mmol/L Anion Gap (3-11) BUN (7-18) mg/dl Creatinine (0.6-1.2) mg/dl Est Cr Clr Drug Dosing ml/min Est GFR ( Amer) ml/min Est GFR (Non-Af Amer) ml/min BUN/Creatinine Ratio (10-20) Glucose (70-99) mg/dl Calcium (8.5-10.1) mg/dl Total Bilirubin (0.2-1) mg/dl AST (15-37) U/L ALT (12-78) U/L Alkaline Phosphatase (45-117) U/L Total Protein (6.4-8.2) gm/dl Albumin (3.4-5.0) gm/dl Globulin (2.5-4.0) gm/dl Albumin/Globulin Ratio (0.9-2) COVID-19 Eval Order SARS-CoV-2 (PCR) (Negative) Blood Type O Positive Antibody Screen NEGATIVE
[2021-05-02] MEDS: FERROUS SULFATE 325 MG TAB PO SCH ×2 (10:45→19:27)
[2021-05-02] MEDS: PANTOprazole 40 MG TAB PO SCH (10:45)
[2021-05-02] MEDS: METOPROLOL SUCC 25MG EXT REL TAB PO SCH (10:46)
[2021-05-02] MEDS: POTASSIUM CHLORIDE 10 MEQ TABCR PO SCH (10:47)
[2021-05-02] MEDS: ESCITALOPRAM OXALATE 20 MG TAB PO SCH (10:47)
[2021-05-02] MEDS: GABAPENTIN 100 MG CAP PO SCH (19:27)
[2021-05-02] MEDS: MIRTAZAPINE TAB 15 MG TAB PO SCH (19:28)
--- NOTE | 2021-05-02 19:51 | Hospitalist Progress Note ---
Date of Service May 02, 2021 Assessment & Plan (1) Hematochezia: No further episodes. Heme negative stool. Black color attributed to iron supplementation. H/H stable, VSS. Resume warfarin in am if continues to remain stable. INR still therapeutic. (2) Paroxysmal atrial fibrillation: Cont rate control with metoprolol and anticoagulation with warfarin, currently on hold. (3) HTN (hypertension): at goal, cont current therapy. (4) Depression: cont Lexapro per home regimen. (5) Chronic indwelling Rowell catheter: (6) DVT prophylaxis: Warfarin, INR therapeutic DNR/DNI Dispo-to [facility] in am if continues to remain stable. Melva Brown DO [facility]ist Admission and Anticipated Discharge Date Admission Date: May 02, 2021 Subjective 89 yo F with reported hematochezia prior to arrival. She is a poor historian and reports not knowing anything about her BMs recently. Per nursing she had a large blackish appearing stool which was heme negative earlier today. She c ontinues to remain hemodynamically stable and Hb is stable. INR still therapeutic. She has declined CSP/EGD and GI has opted for conservative therapies at this time. Review of Systems Review of Systems: All systems reviewed & are unremarkable except as noted in Subjective Physical Exam Physical Exam: CONSTITUTIONAL: WNWD, vitals stable, generally well-appearing EYES: normal conjunctivae, no scleral icterus ENT: external ear and nose normal, MMM RESPIRATORY: clear to auscultation bilaterally, no crackles, rales or wheezes, normal respiratory effort CARDIOVASCULAR: regular rate and rhythm, S1 and 2 heard without murmurs, gallops or rubs, no JVD, no peripheral edema GASTROINTESTINAL: soft, nontender, nondistended. MUSCULOSKELETAL: strength 5/5 throughout, head is normocephalic and atraumatic SKIN: warm and dry NEUROLOGIC: CN 2-12 grossly intact, normal cognition, normal speech, no gross focal deficits. PSYCHIATRIC: alert, cooperative and answering questions correctly. Results & Data Results & Data ([facility]) Vital Signs (Past 12 Hours) Vital Signs Temp Pulse Pulse Pulse Pulse Resp BP 05/02/21 16:50 37 C 68 18 107/55 L 05/02/21 16:06 05/02/21 15:33 36.9 C 64 20 115/62 05/02/21 15:18 70 06/30/21 10:41 36.5 C 65 16 108/63 05/02/21 08:15 37.0 C 68 17 103/64 Pulse Ox Pulse Ox 05/02/21 16:50 96 05/02/21 16:06 95 05/02/21 15:33 92 05/02/21 15:18 05/02/21 10:41 92 05/02/21 08:15 93 Laboratory Results Short CBC 05/01/21 05/02/21 Range/Units 20:58 08:31 WBC 6.57 (4.8-10.8) K/uL Hgb 13.4 12.2 (12.0-16.0) g/dL Hct 40.0 37.1 (37-47) % Plt Count 195 (130-400) K/uL BMP 05/02/21 08:31 Sodium 143 Potassium 3.6 Chloride 111 H Carbon Dioxide 28 BUN 12 Creatinine 1.03 Glucose 91 Calcium 8.4 L Liver Function 05/02/21 Range/Units 08:31 Total Bilirubin 1.1 H (0.2-1) mg/dl AST 12 L (15-37) U/L ALT 13 (12-78) U/L Alkaline Phosphatase 64 (45-117) U/L Albumin 2.7 L (3.4-5.0) gm/dl Medications Administered Current Inpatient Medications Acetaminophen (Acetaminophen 325 Mg Tab) 650 mg PO Q4H PRN PRN Reason: Pain or Fever Stop: 05/31/21 16:41 Acetaminophen (Acetaminophen 325 Mg Tab) 650 mg PO Q4H PRN PRN Reason: Fever Or Pain Stop: 05/31/21 16:41 Alendronate Sodium (Alendronate Sodium 70 Mg Tab) 70 mg PO We@0900 YASHIRA Stop: 06/02/21 08:59 Escitalopram Oxalate (Escitalopram Oxalate 20 Mg Tab) 20 mg PO QDL YASHIRA Stop: 06/01/21 11:29 Last Admin: 05/02/21 10:47 Dose: 20 mg Documented by: Ferrous Sulfate (Ferrous Sulfate 325 Mg Tab) 325 mg PO BID@1000,2000 YASHIRA Stop: 05/31/21 19:59 Last Admin: 05/02/21 19:27 Dose: 325 mg Documented by: Gabapentin (Gabapentin 100 Mg Cap) 100 mg PO HS YASHIRA Stop: 05/31/21 20:59 Last Admin: 05/02/21 19:27 Dose: 100 mg Documented by: Pantoprazole Sodium 40 mg/ (Syringe) 10 mls @ 5 mls/min IV BID [facility] Stop: 05/31/21 16:29 Last Admin: 05/02/21 19:27 Dose: 5 mls/min Documented by: Metoprolol Succinate (Metoprolol Succ 25mg Ext Rel Tab) 12.5 mg PO QDL [facility] Stop: 06/01/21 11:29 Last Admin: 05/02/21 10:46 Dose: 12.5 mg Documented by: Mirtazapine (Mirtazapine Tab 15 Mg Tab) 15 mg PO HS [facility] Stop: 05/31/21 20:59 Last Admin: 05/02/21 19:28 Dose: 15 mg Documented by: Ondansetron HCl (Ondansetron Inj 2 Mg/Ml 2 Ml Vial) 4 mg IV Q6H PRN PRN Reason: Nausea Stop: 05/31/21 16:41 Pantoprazole Sodium (Pantoprazole 40 Mg Tab) 40 mg PO QDL [facility] Stop: 06/01/21 11:29 Last Admin: 05/02/21 10:45 Dose: 40 mg Documented by: Polyethylene Glycol (Polyethylene (Miralax) 17 Gm Pack) 17 gm PO DAILY PRN PRN Reason: Constipation Stop: 05/31/21 16:41 Potassium Chloride (Potassium Chloride 10 Meq Tabcr) 10 meq PO QDL [facility] Stop: 06/01/21 11:29 Last Admin: 05/02/21 10:47 Dose: 10 meq Documented by: Silver Sulfadiazine (Silver Sulfadiazine 1% Cr 50 Gm Jar) 1 appln TOP BID PRN PRN Reason: Skin Irritation Stop: 05/31/21 16:41 Tramadol HCl (Tramadol Hcl 50 Mg Tablet) 50 mg PO Q4H PRN PRN Reason: Pain Stop: 05/31/21 16:41 (1) Depression Depression Type: unspecified Qualified Code(s): F32.9 - Major depressive disorder, single episode, unspecified
[2021-05-03] MEDS: PANTOprazole 40 MG in SYRINGE 0 ML IV SCH (07:53)
[2021-05-03] MEDS: FERROUS SULFATE 325 MG TAB PO SCH (07:53)
--- NOTE | 2021-05-03 08:58 | Electrocardiogram Report ---
Test Reason : Blood Pressure : / mmHG Vent. Rate : 075 BPM Atrial Rate : 075 BPM P-R Int : 190 ms QRS Dur : 070 ms QT Int : 400 ms P-R-T Axes : 037 004 054 degrees QTc Int : 446 ms Poor data quality, interpretation may be adversely affected Normal sinus rhythm Nonspecific ST abnormality Abnormal ECG When compared with ECG of 07-DEC-2019 13:54, Nonspecific T wave abnormality no longer evident in Inferior leads Confirmed by Ken Byrd ([id number]) on 05/03/2021 8:57:44 AM Referred By[facility] Confirmed By:Ken Byrd
[2021-05-03] MEDS ORDERED: ALENDRONATE SODIUM 70 MG TAB PO SCH (09:00)
[2021-05-03] MEDS: METOPROLOL SUCC 25MG EXT REL TAB PO SCH (12:23)
[2021-05-03] MEDS: PANTOprazole 40 MG TAB PO SCH (12:23)
[2021-05-03] MEDS: POTASSIUM CHLORIDE 10 MEQ TABCR PO SCH (12:24)
[2021-05-03] MEDS: ESCITALOPRAM OXALATE 20 MG TAB PO SCH (12:24)
--- NOTE | 2021-05-03 12:47 | Discharge Summary ---
Date of Service May 03, 2021 Admission HPI Per Admitting Provider This is a 89-year-old female from [facility] in [place] with paroxysmal atrial fibrillation and history of DVT on Coumadin, nonobstructive CAD, hypertension, CKD III, history of recurrent UTI, urinary incontinence with indwelling catheter, dementia and other medical problems listed below who presents with episode of bright red blood per rectum this morning. Per discussion with nursing staff, bed pad was covered in bright red blood when they woke her up this morning. She then had episode of black stool with bright red blood mixed in. Staff states her stool is usually that black color due to iron supplementation. Is on coumadin for history of DVT and paroxysmal A fib. Staff called EMS and patient was brought to ED for further evaluation. Patient with confusion during interview. Staff states she has intermittent confusion at baseline and it usually worsens in setting of infection. Does not remember having blood in stool. Denies any pain. Is currently oriented to person but not to place, time or situation. Denies any nausea, vomiting or abdominal pain. No fever, chills, lightheadedness, headache, chest pain, shortness of breath, dysuria or constipation. Admission Exam Per Admitting Provider General Appearance: WD/WN, vitals as above, NAD, sitting up in bed, pleasantly confused but able to answer some yes/no questions Head: normocephalic, atraumatic Eyes: normal inspection, PERRL, conjunctivae normal, anicteric sclerae ENT: external ear and nose normal, oropharynx normal Neck: normal visual inspection, trachea midline, no thyromegaly Respiratory: normal respiratory effort, lungs clear to auscultation, no wheeze, rales, rhonchi. No accessory muscle use Cardiovascular: regular rate, rhythm, no murmur, normal peripheral pulses, no BLE edema. Vessels: no JVD Chest: normal inspection of chest Abdomen/GI: normal bowel sounds, soft, nontender, no hepatosplenomegaly : Rowell catheter in place Extremities/Musculoskeletal: no cyanosis or clubbing, extremities motor strength 5/5 Neurologic: PERRL, EOMI, accommodation nl, no face palsy, no dysarthria, CN's II-XI intact bilaterally and moves all extremities Psychiatric: A+Ox3, euthymic affect Skin: no rashes, normal color, warm/dry Principal Diagnosis Hematochezia Discharge Exam CONSTITUTIONAL: WNWD, vitals stable, generally well-appearing EYES: normal conjunctivae, no scleral icterus ENT: external ear and nose normal, MMM RESPIRATORY: clear to auscultation bilaterally, no crackles, rales or wheezes, normal respiratory effort CARDIOVASCULAR: regular rate and rhythm, S1 and 2 heard without murmurs, gallops or rubs, no JVD, no peripheral edema GASTROINTESTINAL: soft, nontender, nondistended. MUSCULOSKELETAL: strength 5/5 throughout, head is normocephalic and atraumatic SKIN: warm and dry NEUROLOGIC: CN 2-12 grossly intact, normal cognition, normal speech, no gross focal deficits. PSYCHIATRIC: alert, cooperative and answering questions correctly. Discharge Data Allergies Allergy/AdvReac Type Severity Reaction Status Date / Time omeprazole Allergy Unknown distal Verified 05/01/21 14:09 edema-none with pantoprozole Consultations 05/01/21 14:00 ED Decision to Admit Stat 05/01/21 16:42 Consult Gastroenterology Routine Ordered Studies Laboratory Results WBC 6.57 K/uL (4.8-10.8) 05/02/21 08:31 RBC 3.58 M/uL (4.2-5.4) L 05/02/21 08:31 Hgb 12.2 g/dL (12.0-16.0) 05/02/21 08:31 Hct 37.1 % (37-47) 05/02/21 08:31 MCV 103.6 fL (80-100) H 05/02/21 08:31 MCH 34.1 pg (25-34) H 05/02/21 08:31 MCHC 32.9 g/dL (32-36) 05/02/21 08:31 RDW Std Deviation 51.9 fL (36.4-46.3) H 05/02/21 08:31 RDW Coeff of Demetrio 13.8 % (11.5-14.5) 05/02/21 08:31 Plt Count 195 K/uL (130-400) 05/02/21 08:31 MPV 9.2 fL (7.4-10.4) 05/02/21 08:31 Immature Gran % (Auto) 0.2 % 05/01/21 12:12 Neut % (Auto) 80.9 % 05/01/21 12:12 Lymph % (Auto) 10.3 % 05/01/21 12:12 Waldo % (Auto) 6.3 % 05/01/21 12:12 Eos % (Auto) 2.2 % 05/01/21 12:12 Baso % (Auto) 0.1 % 05/01/21 12:12 Neut # (Auto) 6.88 K/uL (1.4-6.5) H 05/01/21 12:12 Lymph # (Auto) 0.88 K/uL (1.2-3.4) L 05/01/21 12:12 Waldo # (Auto) 0.54 K/uL (0.11-0.59) 05/01/21 12:12 Eos # (Auto) 0.19 K/uL (0-0.5) 05/01/21 12:12 Baso # (Auto) 0.01 K/uL (0-0.2) 05/01/21 12:12 Immature Gran # (Auto) 0.02 K/uL (0.00-0.02) 05/01/21 12:12 PT 23.6 Seconds (9.0-12.0) H 05/02/21 08:31 INR 2.5 (0.9-1.1) H 05/02/21 08:31 APTT 44.9 Seconds (21.0-31.0) H 05/01/21 12:12 PTT Ratio 1.7 05/01/21 12:12 Sodium 143 mmol/L (136-145) 05/02/21 08:31 Potassium 3.6 mmol/L (3.5-5.1) 05/02/21 08:31 Chloride 111 mmol/L (98-107) H 05/02/21 08:31 Carbon Dioxide 28 mmol/L (21-32) 05/02/21 08:31 Anion Gap 4.0 (3-11) 05/02/21 08:31 BUN 12 mg/dl (7-18) 05/02/21 08:31 Creatinine 1.03 mg/dl (0.6-1.2) 05/02/21 08:31 Est Cr Clr Drug Dosing 29.5 ml/min 05/02/21 08:31 Est GFR ( Amer) 56.2 ml/min 05/02/21 08:31 Est GFR (Non-Af Amer) 48.5 ml/min 05/02/21 08:31 BUN/Creatinine Ratio 11.5 (10-20) 05/02/21 08:31 Glucose 91 mg/dl (70-99) 05/02/21 08:31 Calcium 8.4 mg/dl (8.5-10.1) L 05/02/21 08:31 Total Bilirubin 1.1 mg/dl (0.2-1) H 05/02/21 08:31 AST 12 U/L (15-37) L 05/02/21 08:31 ALT 13 U/L (12-78) 05/02/21 08:31 Alkaline Phosphatase 64 U/L (45-117) 05/02/21 08:31 Total Protein 6.5 gm/dl (6.4-8.2) 05/02/21 08:31 Albumin 2.7 gm/dl (3.4-5.0) L 05/02/21 08:31 Globulin 3.8 gm/dl (2.5-4.0) 05/02/21 08:31 Albumin/Globulin Ratio 0.7 (0.9-2) L 05/02/21 08:31 Stool Occult Bld Scrn Negative (Negative) 05/02/21 10:25 COVID-19 Eval Order Covid19 at [facility] 05/01/21 14:34 SARS-CoV-2 (PCR) NEGATIVE (Negative) 05/01/21 14:34 Blood Type O Positive 05/01/21 12:12 Antibody Screen NEGATIVE 05/01/21 12:12 Impressions Abdomen/Pelvis CT 05/01/21 12:11 CT SCAN OF THE ABDOMEN AND PELVIS WITHOUT CONTRAST CLINICAL HISTORY: Gi bleed COMPARISON STUDY: December 07, 2019 TECHNIQUE: CT scan of the abdomen and pelvis was performed from the lung bases to the proximal femurs. Images are reviewed in the axial, sagittal, and coronal planes. IV contrast was not administered for this examination. A dose lowering technique was utilized adhering to the principles of ALARA. CT DOSE: 413.14 mGycm FINDINGS: Lower chest: There is moderate respiratory motion artifact. There are minor basilar atelectatic changes Liver: There is pneumobilia, likely secondary to a prior sphincterotomy. No focal hepatic masses are visualized in this noncontrast study Gallbladder: Surgically absent Spleen: Normal in size and attenuation. Pancreas: Unremarkable. Adrenal glands: Unremarkable. Kidneys: There is left-sided nephrolithiasis. There is mild fullness of the left renal collecting system and pelvis similar to the prior study. No ureteral calculi are visualized. Bowel: There are no transition zones indicate bowel obstruction. By history the appendix is surgically absent. There is no evidence of acute diverticulitis. Peritoneum: There is no intraperitoneal free air or abdominal ascites. Vasculature: The abdominal aorta is normal in course and caliber. Adenopathy: None. 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 There is an indwelling Rowell catheter. No pathologic pelvic masses are visualized. Skeletal structures: Postsurgical changes are present within the spine and left hip IMPRESSION: 1. No acute intra-abdominal or pelvic findings 2. No evidence of bowel obstruction. No evidence of free air 3. No evidence of pathologic adenopathy 4. Left-sided nephrolithiasis ACT 112: Negative or not required by law. Electronically signed by: Eliel Adkins M.D. 05/01/2021 1:29 PM Hospital Course (1) Hematochezia: The patient is an 89-year-old female who lives at [facility]. She presented after staff noticed an episode of hematochezia. She notably has a black stool at baseline on iron supplementation. She is on Coumadin for paroxysmal atrial fibrillation and on admission her INR was 3.3. Coumadin was held but INR was not reversed in the absence of active bleeding and with a stable hemoglobin and stable hemodynamics. She was admitted to the hospitalist service and monitored on telemetry. INR fell the following day to 2.5. GI was consulted and in the absence of further episodes of hematochezia there was no acute indication for diagnostic endoscopy. The care team did discuss an EGD and colon with the patient who noted she was not interested in any of diagnostic testing at this time and furthermore stated she was not sure that she would want further scopes even if she did have signs or symptoms of active GI bleeding. She continued to do well for another 24 hours and hemoglob in remained stable throughout her hospitalization. She remained hemodynamically stable throughout her hospitalization. She continued to tolerate p.o. and no further episodes of hematochezia were noted. There was a stool that was blackish in color that was heme-negative. She will be sent back to [facility] in stable condition with close primary care follow-up recommended. I spoke with her son, Ed, by phone and explained the assessment and plan. I verbalized that she has declined any scope at this time and even if she may have S/Sx of active GI bleeding. He verbalized understanding. Total Time Total Time Spent Total Time Spent (In Minutes): 60 Total Time Includes: Examination of the Patient, Discharge Planning, Medication Reconciliation and Communication With Other Providers Discharge Plan Discharge Items Patient Disposition: Personal [facility] Reason For Visit: GI BLEED Discharge Diagnosis: Hematochezia Condition on Discharge: Good Activity: Resume your previous activity Non-emergency contact: Primary Care Provider Call non-emergency contact if: you have any medication questions, your symptoms worsen and your pain is not controlled Follow-up/Referrals: MAURICE ESPINOSA [Primary Care Provider] - Diet: Regular Diet Texture: Mechanical soft (ground) Addtl Attending Provider Instructions: Rosalba Ryland, You do not have any further bloody bowel movements during this hospital stay. Your hemoglobin remained stable and your vital signs also remained stable throughout this hospitalization. Therefore, it does not appear you have any concerning active GI bleeding ongoing. However, should you have a return of symptoms or any concerning signs or symptoms of active GI bleeding please seek immediate medical attention. For now your Coumadin will be resumed at your typical dosing. It is recommended that you follow-up with your primary care doctor within 1 week of discharge from the hospital to ensure you are still doing well. It was a pleasure taking care of you! Please call if you have any questions or problems. You can reach a [facility] hospitalist on duty at [facility] 24 hours a day by calling [phone]. Take care of yourself. Melva Brown, DO [facility] Hospitalist Pending Studies at Discharge: No Stand-Alone Forms: My [facility] Skilled Items Patient informed of condition?: Yes DNR: No Discharge Level of Care: Other Communicable Disease: No Discharge Prognosis: Stable Lines: None Urinary Catheter: Yes Medications and DC Order Prescriptions: Continued pantoprazole [Protonix] 40 mg Tablet,Delayed Release (Dr/Ec) 40 mg PO QDL Qty: 0 RF: 0 mirtazapine 15 mg Tablet 15 mg PO HS Qty: 0 RF: 0 acetaminophen 325 mg Tablet 650 mg PO Q4H MDD 3 GRAMS/24 HOURS PRN (Reason: Fever Or Pain) Qty: 0 RF: 0 gabapentin 100 mg Capsule 100 mg PO HS Qty: 0 RF: 0 ferrous sulfate 325 mg (65 mg iron) Tablet 325 mg PO BID 30 Days Qty: 60 RF: 3 metoprolol succinate 25 mg tablet extended release 24 hr 12.5 mg PO QDL RF: 0 alendronate 70 mg tablet 70 mg PO WE RF: 0 escitalopram oxalate 20 mg tablet 20 mg PO QDL RF: 0 potassium chloride [Klor-Con M10] 10 mEq tablet,ER particles/crystals 10 meq PO QDL RF: 0 tramadol 50 mg tablet 50 mg PO Q4H PRN (Reason: Pain) RF: 0 silver sulfadiazine 1 % Cream 1 applic TOPICAL BID PRN (Reason: Skin Irritation) RF: 0 warfarin 3 mg tablet 3 mg PO DAILY@1600 RF: 0 Discharge Orders: Discharge Order (Routine); Ordered 05/03/21 Ordered By: Melva Brown Admission Data Admit Date/Time: 05/02/21 15:01 Attending Provider: Melva Brown Admit Provider: Ana Conde Primary Care Provider: MAURICE ESPINOSA Other Providers: Ana Conde ; Jose Alberto Severino Home Health Attestation I certify that this patient is under my care and that I, or a physicians assistant director of admissions working with me, had a face to-face encounter that meets the home health [id number] encounter requirements with this patient. The encounter with the patient was in whole, or in part, for the following medical condition, which is the primary reason for home health care (list medical condition): I certify that, based on my findings, the following services are medically necessary home health services: My clinical findings support the need for the above services because: PT Assessment for Endurance / Balance / Strength PT Eval for Safety and Mobility PT Gait and Balance Training, Strengthening and Safety Skilled Nsg Assessment Further, I certify that my clinical findings support that this patient is homebound (i.e. absences from home require considerable and taxing effort and are for medical reasons or yarsani services or infrequently or of short duration when for other reasons) because: Assistance of 1 Person for Ambulation/Activities Supportive Aid - Walker Certification for Home Health Services: Based on the above findings, I certify that this patient is confined to the home and needs intermittent custodial care, physical therapy and/or speech therapy or continues to need occupational therapy. The patient is under my care, and I have initiated the establishment of the plan of care. This patient will be followed by a physician who will periodically review the plan of care.
[2021-05-03] MEDS ORDERED: ACETAMINOPHEN 500 MG TAB PO STA (12:49)
[2021-05-03] MEDS ORDERED: WARFARIN SOD 3 MG TAB PO SCH (16:00)
== END 2021-05-03 15:32 | disposition home or self-care (01) ==
LOC: 2E 10:52 → ED 10:52 → SUATTDRO 14:03 → INTOOBSV 14:03 → 2E 16:10 → 3W 05-02 15:05

== ENCOUNTER 2021-10-15 16:01 | Observation (INO) ==
--- NOTE | 2021-10-15 16:20 | Emergency Department Note ---
Impression & Plan Chest pain, Breathlessness ED Provider Note Provider: Renzo Newsome MD DATE OF SERVICE: 10/15/2021 CHIEF COMPLAINT: Chest pain HISTORY OF PRESENT ILLNESS: Patient is a 89-year-old female past medical history including paroxysmal atrial fibrillation and DVT on Coumadin, CAD without stents, hypertension, CKD, indwelling [place] catheter for history of overactive bladder and dementia presenting from her facility today with report of chest pain and pressure. Describes this pain as an elephant on her chest and that she cannot take a full breath. Patient herself is not the best historian but reports this started last night. She denies falling. Denies abdominal pain states her stomach's been little unsettled at times. Denies nausea or vomiting. No URI symptoms or fever reported. Patient does report the pain radiates to her back but not to her arms or jaw. Reports a history of silent heart attack by her report. Patient received 2 nitroglycerin for EMS without change of her pain. Patient reports she did take aspirin today. The facility staff report when I called them on the phone that patient just mentioned this chest pain and heaviness to them this afternoon and thus they called EMS. REVIEW OF SYSTEMS: A total of 10 review of systems was obtained and negative except as stated above in the HPI. PAST MEDICAL HISTORY: As noted above MEDICATIONS:Reviewed medication list from the facility SOCIAL HISTORY: Lives at nursing facility PHYSICAL EXAM: GENERAL: alert and oriented to person in no acute distress on stretcher, hard of hearing with some gaps in recent events and not oriented to year or time. Head: normocephalic and atraumatic EYES: No injection, discharge or icterus. NECK: Trachea midline. ENT: Mucous membranes pink and moist. LUNGS: Airway patent. No retractions. Breath sounds clear with good air entry bilaterally. HEART: Regular rate and rhythm. No chest wall tenderness ABDOMEN: Soft and non-tender, without guarding or rebound. No masses BACK: No midline tenderness, with some slight left-sided thoracic paraspinal tenderness on exam. SKIN: Acyanotic, warm, dry, without rashes EXTREMITIES: Without swelling, tenderness or deformity without pain with ROM or movement of the left or right arms. NEUROLOGICAL: No focal deficits moving all extremities No aphasia. No facial droop or slurred speech. EK bpm normal sinus rhythm. No PVC or PAC. No acute ST segment elevation with a QTC of 453. Some slight need baseline artifact noted. CONTINUOUS CARDIAC MONITORING: was ordered and showed a heart rate of 60s-80s bpm in normal sinus rhythm Patient's laboratory studies and imaging reviewed. Differential includes Cardiac ischemia, aortic dissection, pulmonary embolism, pneumothorax, pneumonia, pericarditis, myocarditis, esophageal rupture, GERD, cholecystitis, pancreatitis, musculoskeletal, as well as other pathologies. IMPRESSION/MEDICAL DECISION MAKING: Patient with reported chest discomfort and pressure with little bit of shortness of breath. Reportedly anticoagulated on Coumadin and INR checks. Received 2 nitro for EMS without improvement of pain. Slight reproducible left paraspinal thoracic tenderness. No trauma reported. Benign abdomen. No pain with ROM of the arms or significant chest wall discomfort on palpation. Patient is not the best historian and is quite hard of hearing on exam. EKG without acute STEMI noted. Basic labs were sent. Given the anticoagulation less likely to be PE. INR is therapeutic. Chest x-ray per radiology without significant acute pathology such as pneumothorax or pneumonia reported. Blood work here without significant anemia or leukocytosis. No severe electrolyte abnormality or signs of renal dysfunction. No concerning findings at this time based on labs for pancreatitis with normal lipase. No response previously to nitroglycerin also will defer additional. Covid test completed but seems less likely given the patient's history. She is not hypoxic here. Troponin returned undetectable here. No transaminitis. Again the patient reports her pain may have started last night but staff report she is reported the discomfort and pressure to her chest to them this afternoon. On reassessment the patient states the pain and pressure have resolved and now states she feels short of breath. Again question how good of a historian she is. Again she is not hypoxic and does not look in distress. She reports she is vaccinated for Covid. Patient unfortunately with comorbidities and prior history of cardiac disease. At this time discussed with the patient further observation given her pain complaint earlier and now some breathing issue Hospitalist contacted. Patient again received aspirin prior to arrival. Covid negative. DIAGNOSIS: Chest pain, shortness of breath DISPOSITION: Hospitalist will evaluate Patient was agreeable with this plan. Past Med/Surg History Medical History (Updated 10/15/21 @ 18:35 by Mona Chacko PA-C) CAD (coronary artery disease) Chronic pain Depression Depression GERD (gastroesophageal reflux disease) High serum chloride History of DVT (deep vein thrombosis) History of DVT (deep vein thrombosis) HLD (hyperlipidemia) HTN (hypertension) Hypothyroidism Migraines Nephrolithiasis NSTEMI (non-ST elevated myocardial infarction) OAB (overactive bladder) Osteoarthritis Paroxysmal atrial fibrillation Sciatica Supratherapeutic INR Surgical History H/O lithotripsy 05/29/18. LMA #4. H/O total hip arthroplasty History of appendectomy History of cataract surgery History of lumbar surgery History of total hip arthroplasty LEFT History of total knee replacement RIGHT Family History Mother , 70 Pancreatic cancer Father Coronary heart disease Social History Smoking Status: Unknown if ever smoked Second Hand Exposure: No; Hx Alcohol Use: No Hx Substance Use: No Preferred Language: Andorran Communication Ability: Effective Wood Router Hand Required: No Beliefs That Will Affect Care: None marital status: / Current Living Situation: Personal Care Facility Current Living Situation Comment: [facility] How many Children do You have: 2 Feels Safe at Home: Yes Assistive Devices: Wheelchair Allergies Allergies Allergy/AdvReac Type Severity Reaction Status Date / Time omeprazole Allergy Unknown distal Verified 05/01/21 14:09 edema-none with pantoprozole Home Meds Home Medications Medication Instructions Recorded Confirmed pantoprazole 40 mg tablet,delayed 40 mg PO QDL #0 12/27/15 10/15/21 release (Protonix) acetaminophen 325 mg tablet 650 mg PO Q4H PRN #0 MDD 3 01/08/17 10/15/21 GRAMS/24 HOURS mirtazapine 15 mg tablet 15 mg PO HS #0 tab 01/08/17 10/15/21 gabapentin 100 mg capsule 100 mg PO HS #0 03/10/18 10/15/21 ferrous sulfate 325 mg (65 mg 325 mg PO BID 30 Days #60 tab 04/08/18 10/15/21 iron) tablet alendronate 70 mg tablet 70 mg PO WE 02/24/19 10/15/21 escitalopram oxalate 20 mg tablet 20 mg PO DAILY 02/24/19 10/15/21 metoprolol succinate 25 mg 12.5 mg PO QDL 08/08/19 10/15/21 tablet,extended release 24 hr potassium chloride 10 mEq 10 meq PO DAILY 12/07/19 10/15/21 tablet,extended release(part/cryst) (Klor-Con M) tramadol 50 mg tablet 50 mg PO Q4H PRN 05/27/20 10/15/21 silver sulfadiazine 1 % topical 1 applic TOPICAL BID PRN 05/01/21 10/15/21 cream warfarin 3 mg tablet 3 mg PO UD 05/01/21 10/15/21 lorazepam 0.5 mg tablet 0.5 mg PO MONTHLY PRN 10/15/21 10/15/21 warfarin 2.5 mg tablet 2.5 mg PO UD 10/15/21 10/15/21 Results & Data (ED) Vital Signs Vital Signs - 24 hr 10/15/21 16:14 10/15/21 16:30 10/15/21 17:00 Temperature 37 C Temperature Source Oral Pulse Rate 71 67 67 Pulse Rate from SpO2 Sensor 67 Pulse Rhythm Regular Pulse Strength Normal Respiratory Rate 16 16 22 Respiratory Effort / Characteristics Non-Labored Spontaneous Respiratory Depth Normal Respiratory Pattern Regular Blood Pressure 103/68 101/63 106/64 Blood Pressure Mean 79 75 78 Blood Pressure Position Lying Pulse Oximetry 94 95 95 Oxygen Delivery Method Room Air Room Air Room Air Sepsis Recent Fever Within 48 Hours No Sepsis New/Unexplained Change in Mental Status N/A Sepsis Action Taken by Nursing No Action Required 10/15/21 17:30 Temperature Temperature Source Pulse Rate 67 Pulse Rate from SpO2 Sensor 67 Pulse Rhythm Pulse Strength Respiratory Rate 14 Respiratory Effort / Characteristics Respiratory Depth Respiratory Pattern Blood Pressure 107/65 Blood Pressure Mean 79 Blood Pressure Position Pulse Oximetry 94 Oxygen Delivery Method Room Air Sepsis Recent Fever Within 48 Hours Sepsis New/Unexplained Change in Mental Status Sepsis Action Taken by Nursing Laboratory Data Result diagrams: 10/15/21 16:20 10/15/21 16:20 Lab Results 10/15/21 10/15/21 10/15/21 Range/Units 16:20 16:20 16:20 WBC 7.21 (4.8-10.8) K/uL RBC 3.82 L (4.2-5.4) M/uL Hgb 13.2 (12.0-16.0) g/dL Hct 39.1 (37-47) % MCV 102.4 H (80-100) fL MCH 34.6 H (25-34) pg MCHC 33.8 (32-36) g/dL RDW Std Deviation 52.0 H (36.4-46.3) fL RDW Coeff of Demetrio 13.8 (11.5-14.5) % Plt Count 217 (130-400) K/uL MPV 9.3 (7.4-10.4) fL Immature Gran % (Auto) 0.3 % Neut % (Auto) 68.1 % Lymph % (Auto) 20.4 % [place] % (Auto) 6.8 % Eos % (Auto) 4.0 % Baso % (Auto) 0.4 % Neut # (Auto) 4.91 (1.4-6.5) K/uL Lymph # (Auto) 1.47 (1.2-3.4) K/uL [place] # (Auto) 0.49 (0.11-0.59) K/uL Eos # (Auto) 0.29 (0-0.5) K/uL Baso # (Auto) 0.03 (0-0.2) K/uL Immature Gran # (Auto) 0.02 (0.00-0.02) K/uL PT 21.6 H (9.0-12.0) Seconds INR 2.3 H (0.9-1.1) APTT 33.1 H (21.0-31.0) Seconds PTT Ratio 1.3 Sodium 144 (136-145) mmol/L Potassium 3.7 (3.5-5.1) mmol/L Chloride 114 H (98-107) mmol/L Carbon Dioxide 24 (21-32) mmol/L Anion Gap 6.0 (3-11) BUN 16 (7-18) mg/dl Creatinine 1.02 (0.6-1.2) mg/dl Est Cr Clr Drug Dosing 30.0 ml/min Est GFR ( Amer) 56.5 ml/min Est GFR (Non-Af Amer) 48.7 ml/min BUN/Creatinine Ratio 16.1 (10-20) Glucose 140 H (70-99) mg/dl Calcium 8.9 (8.5-10.1) mg/dl Total Bilirubin 0.5 (0.2-1) mg/dl AST 16 (15-37) U/L ALT 18 (12-78) Alkaline Phosphatase 85 (45-117) U/L Troponin I < 0.015 (0-0.045) ng/ml Total Protein 6.9 (6.4-8.2) gm/dl Albumin 3.2 L (3.4-5.0) gm/dl Globulin 3.7 (2.5-4.0) gm/dl Albumin/Globulin Ratio 0.9 (0.9-2) Lipase 60 L (73-393) U/L SARS-CoV-2, RNA, NAAT (NEGATIVE) 10/15/21 Range/Units 16:30 WBC (4.8-10.8) K/uL RBC (4.2-5.4) M/uL Hgb (12.0-16.0) g/dL Hct (37-47) % MCV (80-100) fL MCH (25-34) pg MCHC (32-36) g/dL RDW Std Deviation (36.4-46.3) fL RDW Coeff of Demetrio (11.5-14.5) % Plt Count (130-400) K/uL MPV (7.4-10.4) fL Immature Gran % (Auto) % Neut % (Auto) % Lymph % (Auto) % [place] % (Auto) % Eos % (Auto) % Baso % (Auto) % Neut # (Auto) (1.4-6.5) K/uL Lymph # (Auto) (1.2-3.4) K/uL [place] # (Auto) (0.11-0.59) K/uL Eos # (Auto) (0-0.5) K/uL Baso # (Auto) (0-0.2) K/uL Immature Gran # (Auto) (0.00-0.02) K/uL PT (9.0-12.0) Seconds INR (0.9-1.1) APTT (21.0-31.0) Seconds PTT Ratio Sodium (136-145) mmol/L Potassium (3.5-5.1) mmol/L Chloride (98-107) mmol/L Carbon Dioxide (21-32) mmol/L Anion Gap (3-11) BUN (7-18) mg/dl Creatinine (0.6-1.2) mg/dl Est Cr Clr Drug Dosing ml/min Est GFR ( Amer) ml/min Est GFR (Non-Af Amer) ml/min BUN/Creatinine Ratio (10-20) Glucose (70-99) mg/dl Calcium (8.5-10.1) mg/dl Total Bilirubin (0.2-1) mg/dl AST (15-37) U/L ALT (12-78) Alkaline Phosphatase (45-117) U/L Troponin I (0-0.045) ng/ml Total Protein (6.4-8.2) gm/dl Albumin (3.4-5.0) gm/dl Globulin (2.5-4.0) gm/dl Albumin/Globulin Ratio (0.9-2) Lipase (73-393) U/L SARS-CoV-2, RNA, NAAT NEGATIVE (NEGATIVE) Imaging Data Radiologist's Impression: Chest X-Ray 10/15/21 16:14 XR chest 1V portable CLINICAL HISTORY: Atypical chest pain TECHNIQUE: Single frontal radiograph of the chest was obtained. Comparison: Comparison is made to chest one view 12/07/2019 FINDINGS: No lines and tubes are seen. The cardiomediastinal silhouette is normal. The lungs are clear. No evidence of pleural effusion or pneumothorax. IMPRESSION: No acute chest disease. ACT 112: Negative or not required by law. Electronically signed by: Addison Diaz M.D. 10/15/2021 4:42 PM Discharge Plan Visit Data Chief Complaint: Chest Pain Stated Complaint: chest pain ED Provider: Renzo Newsome Discharge Problem: Chest pain, Breathlessness Patient Disposition: Being Evaluated by Hospitalist Discharge Problem: Chest pain Qualifiers: Chest pain type: unspecified Qualified Code(s): R07.9 - Chest pain, unspecified
[2021-10-15 16:29] LABS: Basophils # (auto) 0.03 K/uL (0-0.2); Basophils % (auto) 0.4 %; Eosinophils # (auto) 0.29 K/uL (0-0.5); Hematocrit (blood only) 39.1 % (37-47); Hemoglobin 13.2 g/dL (12.0-16.0); Immature Granulocytes # (auto) 0.02 K/uL (0.00-0.02); Immature Granulocytes % (auto) 0.3 %; Lymphocytes # (auto) 1.47 K/uL (1.2-3.4); Lymphocytes % (auto) 20.4 %; Mean Corpuscular Hemoglobin 34.6 pg (25-34); Mean Corpuscular Hgb Conc 33.8 g/dL (32-36); Mean Corpuscular Volume 102.4 fL (80-100); Mean Platelet Volume 9.3 fL (7.4-10.4); Monocytes # (auto) 0.49 K/uL (0.11-0.59); Monocytes % (auto) 6.8 %; Neutrophils # (auto) 4.91 K/uL (1.4-6.5); Neutrophils % (auto) 68.1 %; Platelet Count 217 K/uL (130-400); RDW Coefficient of Variation 13.8 % (11.5-14.5); Red Blood Count 3.82 M/uL (4.2-5.4); White Blood Count 7.21 K/uL (4.8-10.8)
[2021-10-15 16:42] LABS: INR 2.3 (0.9-1.1); Partial Thromboplastin Ratio 1.3; Partial Thromboplastin Time 33.1 Seconds (21.0-31.0); Prothrombin Time 21.6 Seconds (9.0-12.0)
--- NOTE | 2021-10-15 16:43 | XRay Report ---
XR chest 1V portable CLINICAL HISTORY: Atypical chest pain TECHNIQUE: Single frontal radiograph of the chest was obtained. Comparison: Comparison is made to chest one view 12/07/2019 FINDINGS: No lines and tubes are seen. The cardiomediastinal silhouette is normal. The lungs are clear. No evid ence of pleural effusion or pneumothorax. IMPRESSION: No acute chest disease. ACT 112: Negative or not required by law. Electronically signed by: Addison Diaz M.D. 10/15/2021 4:42 PM
[2021-10-15 16:46] LABS: Albumin Level 3.2 gm/dl (3.4-5.0); BUN Creatinine Ratio 16.1 (10-20); Blood Urea Nitrogen 16 mg/dl (7-18); Calcium 8.9 mg/dl (8.5-10.1); Carbon Dioxide 24 mmol/L (21-32); Chloride 114 mmol/L (98-107); Est GFR (African American) 56.5 ml/min; Est GFR (Non-African American) 48.7 ml/min; Glucose 140 mg/dl (70-99); Lipase 60 U/L (73-393); Potassium 3.7 mmol/L (3.5-5.1); Sodium 144 mmol/L (136-145)
[2021-10-15 17:00] LABS: Alanine Aminotransferase 18 (12-78); Albumin Globulin Ratio 0.9 (0.9-2); Alkaline Phosphatase 85 U/L (45-117); Aspartate Aminotransferase 16 U/L (15-37); Bilirubin,Total 0.5 mg/dl (0.2-1); Globulin 3.7 gm/dl (2.5-4.0); Total Protein 6.9 gm/dl (6.4-8.2); Troponin I < 0.015 ng/ml (0-0.045)
--- NOTE | 2021-10-15 17:52 | History & Physical Report ---
Date of Service October 15, 2021 Assessment & Plan (1) Chest pain: Plan: Unclear pattern of chest pain but pt does have a history of CAD and reports a hx of NSTEMI with minimal symptoms previously - Observe overnight on telemetry - Serial troponin - EKG in AM - Consult cardiology for additional recommendations (2) CAD (coronary artery disease): Plan: See plan for #1 (3) GERD (gastroesophageal reflux disease): Plan: - Continue PPI therapy as taking outpatient (4) History of DVT (deep vein thrombosis): Plan: On chronic anticoagulation - continue with target INR of 2.0-3.0 - Continue outpatient warfarin dosing - Daily INR (5) Paroxysmal atrial fibrillation: Plan: See plan for #4 (6) HTN (hypertension): Plan: Continue beta-tayler Plan: Pt seen and reviewed with attending physician, Dr. Brown. Plan of care discussed and as outlined above. Paperwork from [facility] reviewed - pt is a full code. Vidal Chacko PA-C History of Present Illness Chief Complaint: Chest Pain Primary Care Provider: [facility] This is an 89 y/o female from [facility] in [place] with paroxysmal atrial fibrillation and history of DVT on Coumadin, nonobstructive CAD, hypertension, CKD III, history of recurrent UTI, urinary incontinence with indwelling catheter, dementia and other medical problems listed below who presents with episode of chest pain. Per notes and report from [facility], pt reports the sudden onset of substernal chest pain and heaviness "like an elephant" on her chest earlier today. However, pt initially reported to the ED that the pain actually started last night. She was given nitro x 2 without relief. There was some question of if her CP was reproducible on exam. When I saw her in the ED, she said that her pain had resolved. She also transiently complained in the ED of trouble breathing but this has also resolved at present per pt. She does c/o of a SUMMERS. It is not clear how reliable of a historian that the patient is. She answered all other ROS questions as "unsure" or "nope" including edema, dizziness, syncope, N/V/D. She apparently does have a hx of nonocclusive CAD and pt reported a history of a "silent heart attack" but was unsure of any other details than that. Allergies Allergy/AdvReac Type Severity Reaction Status Date / Time omeprazole Allergy Unknown distal Verified 05/01/21 14:09 edema-none with pantoprozole Home Medications Medication Instructions Recorded Confirmed Type pantoprazole 40 mg tablet,delayed 40 mg PO QDL #0 12/27/15 10/15/21 History release (Protonix) acetaminophen 325 mg tablet 650 mg PO Q4H PRN #0 MDD 3 01/08/17 10/15/21 History GRAMS/24 HOURS mirtazapine 15 mg tablet 15 mg PO HS #0 tab 01/08/17 10/15/21 History gabapentin 100 mg capsule 100 mg PO HS #0 03/10/18 10/15/21 History ferrous sulfate 325 mg (65 mg 325 mg PO BID 30 Days #60 tab 04/08/18 10/15/21 History iron) tablet alendronate 70 mg tablet 70 mg PO WE 02/24/19 10/15/21 History escitalopram oxalate 20 mg tablet 20 mg PO DAILY 02/24/19 10/15/21 History metoprolol succinate 25 mg 12.5 mg PO QDL 08/08/19 10/15/21 History tablet,extended release 24 hr potassium chloride 10 mEq 10 meq PO DAILY 12/07/19 10/15/21 History tablet,extended release(part/cryst) (Klor-Con M) tramadol 50 mg tablet 50 mg PO Q4H PRN 05/27/20 10/15/21 History silver sulfadiazine 1 % topical 1 applic TOPICAL BID PRN 05/01/21 10/15/21 History cream warfarin 3 mg tablet 3 mg PO UD 05/01/21 10/15/21 History lorazepam 0.5 mg tablet 0.5 mg PO MONTHLY PRN 10/15/21 10/15/21 History warfarin 2.5 mg tablet 2.5 mg PO UD 10/15/21 10/15/21 History Past Med/Surg History Medical History (Updated 10/15/21 @ 18:35 by Mona Chacko PA-C) CAD (coronary artery disease) Chronic pain Depression Depression GERD (gastroesophageal reflux disease) High serum chloride History of DVT (deep vein thrombosis) History of DVT (deep vein thrombosis) HLD (hyperlipidemia) HTN (hypertension) Hypothyroidism Migraines Nephrolithiasis NSTEMI (non-ST elevated myocardial infarction) OAB (overactive bladder) Osteoarthritis Paroxysmal atrial fibrillation Sciatica Supratherapeutic INR Surgical History H/O lithotripsy 05/29/18. LMA #4. H/O total hip arthroplasty History of appendectomy History of cataract surgery History of lumbar surgery History of total hip arthroplasty LEFT History of total knee replacement RIGHT Family History Mother , 70 Pancreatic cancer Father Coronary heart disease Social History Smoking Status: Unknown if ever smoked Second Hand Exposure: No; Hx Alcohol Use: No Hx Substance Use: No Preferred Language: Korean Communication Ability: Effective Risk Control Consultant Required: No Beliefs That Will Affect Care: None marital status: / Current Living Situation: Personal Care Facility Current Living Situation Comment: [facility] How many Children do You have: 2 Feels Safe at Home: Yes Assistive Devices: Wheelchair Review of Systems Review of Systems: Other (Limited due to presumed underlying dementia/pt poor historian) Physical Exam Constitutional: + thin and + frail appearing; no acute distress Eyes: PERRL, conjunctivae normal, anicteric sclerae Neck: trachea midline Respiratory: no respiratory distress and no labored breathing Auscultation: lungs clear to auscultation bilaterally; no rales, no rhonchi and no wheezes Cardiovascular: Rate/Rhythm: regular rate and regular rhythm Vessels: radial pulses present Extremities: no calf tenderness and no pedal edema No reproducible chest pain on exam at present Gastrointestinal (Abdomen): Inspection/Auscultation: normal bowel sounds; a bdomen not distended Percussion/Palpation: abdomen soft; abdomen nontender Musculoskeletal: Head/Neck/Chest: normal palpation of chest wall Skin: few areas of sporadic ecchymosis on chest and arms Neurologic: moves all extremities Speech / Cognition: normal speech Psychiatric: Orientation: alert, oriented to person and oriented to place; + not oriented to time Results & Data Results & Data ([facility]) Vital Signs (Past 12 Hours) Vital Signs Temp Pulse Resp BP Pulse Ox 10/15/21 17:00 67 22 106/64 95 10/15/21 16:30 67 16 101/63 95 10/15/21 16:14 37 C 71 16 103/68 94 Laboratory Results Laboratory Results - last 24 hr 10/15/21 10/15/21 10/15/21 16:20 16:20 16:20 WBC 7.21 RBC 3.82 L Hgb 13.2 Hct 39.1 MCV 102.4 H MCH 34.6 H MCHC 33.8 RDW Std Deviation 52.0 H RDW Coeff of Demetrio 13.8 Plt Count 217 MPV 9.3 Immature Gran % (Auto) 0.3 Neut % (Auto) 68.1 Lymph % (Auto) 20.4 [place] % (Auto) 6.8 Eos % (Auto) 4.0 Baso % (Auto) 0.4 Neut # (Auto) 4.91 Lymph # (Auto) 1.47 [place] # (Auto) 0.49 Eos # (Auto) 0.29 Baso # (Auto) 0.03 Immature Gran # (Auto) 0.02 PT 21.6 H INR 2.3 H APTT 33.1 H PTT Ratio 1.3 Sodium 144 Potassium 3.7 Chloride 114 H Carbon Dioxide 24 Anion Gap 6.0 BUN 16 Creatinine 1.02 Est Cr Clr Drug Dosing 30.0 Est GFR ( Amer) 56.5 Est GFR (Non-Af Amer) 48.7 BUN/Creatinine Ratio 16.1 Glucose 140 H Calcium 8.9 Total Bilirubin 0.5 AST 16 ALT 18 Alkaline Phosphatase 85 Troponin I < 0.015 Total Protein 6.9 Albumin 3.2 L Globulin 3.7 Albumin/Globulin Ratio 0.9 Lipase 60 L SARS-CoV-2, RNA, NAAT 10/15/21 16:30 WBC RBC Hgb Hct MCV MCH MCHC RDW Std Deviation RDW Coeff of Demetrio Plt Count MPV Immature Gran % (Auto) Neut % (Auto) Lymph % (Auto) [place] % (Auto) Eos % (Auto) Baso % (Auto) Neut # (Auto) Lymph # (Auto) [place] # (Auto) Eos # (Auto) Baso # (Auto) Immature Gran # (Auto) PT INR APTT PTT Ratio Sodium Potassium Chloride Carbon Dioxide Anion Gap BUN Creatinine Est Cr Clr Drug Dosing Est GFR ( Amer) Est GFR (Non-Af Amer) BUN/Creatinine Ratio Glucose Calcium Total Bilirubin AST ALT Alkaline Phosphatase Troponin I Total Protein Albumin Globulin Albumin/Globulin Ratio Lipase SARS-CoV-2, RNA, NAAT NEGATIVE Diagnostic Findings Chest X-ray 10/15/21 - IMPRESSION: No acute chest disease. Medications Administered Received nitro x 2 pre-hospital Code Status & VTE Plan VTE Prophylaxis Plan VTE Prophylaxis will be ordered: Yes Supervising Physician Co-Signing Physician Notes 89 yo F with recent episode of chest pain today as above. She continues to endorse being chest pain-free at this time with no SOB or associated symptoms of concern such as sweating, palpitations, etc. She states that she is very depressed and that is what drove her symptoms today. When asked why she states that she recently signed over all of her possessions, including her home, to her son. Although she verbalized that she knew he would take care of her things, she appears very insecure about this decision. Physical exam reveals a hemodynamically stable elderly female in no acute distress. She is mentating at her baseline and answering questions appropriately. Cardiac exam is normal revealing S1/2 heard without m/g/r, and lungs are clear to auscultation throughout. Abdomen is NTND and she is euvolemic without peripheral edema. No gross focal neuromuscular deficits. Elderly and physically deconditioned generally. Agree with plan above to trend troponins and undergo cardiology evaluation in am with her comorbidities and risk. For depression she is already taking Lexapro and mirtazapine. Follow-up with PCP to discuss further. Talk therapy would be beneficial as outpatient. DO Kevin (1) CAD (coronary artery disease) Associated angina: without angina Coronary Disease-Associated Artery/Lesion type: upper [place] artery Teller vs. transplanted heart: upper [place] heart Qualified Code(s): I25.10 - Atherosclerotic heart disease of [place] coronary artery without angina pectoris (2) Chest pain Chest pain type: unspecified Qualified Code(s): R07.9 - Chest pain, unspecified
[2021-10-16] MEDS ORDERED: MIRTAZAPINE TAB 15 MG TAB PO SCH (01:53)
[2021-10-16] MEDS ORDERED: NITROGLYCERIN SL 0.4 MG/TAB TAB SL PRN (01:53)
[2021-10-16] MEDS ORDERED: ACETAMINOPHEN 325 MG TAB PO PRN (01:53)
[2021-10-16] MEDS ORDERED: GABAPENTIN 100 MG CAP PO SCH (01:53)
[2021-10-16 03:09] LABS: Basophils # (auto) 0.02 K/uL (0-0.2); Basophils % (auto) 0.4 %; Eosinophils # (auto) 0.32 K/uL (0-0.5); Eosinophils % (auto) 5.6 %; Hematocrit (blood only) 37.6 % (37-47); Hemoglobin 12.7 g/dL (12.0-16.0); Immature Granulocytes # (auto) 0.01 K/uL (0.00-0.02); Immature Granulocytes % (auto) 0.2 %; Lymphocytes # (auto) 1.88 K/uL (1.2-3.4); Mean Corpuscular Hemoglobin 34.9 pg (25-34); Mean Corpuscular Hgb Conc 33.8 g/dL (32-36); Mean Corpuscular Volume 103.3 fL (80-100); Mean Platelet Volume 9.4 fL (7.4-10.4); Monocytes # (auto) 0.44 K/uL (0.11-0.59); Monocytes % (auto) 7.7 %; Neutrophils # (auto) 3.02 K/uL (1.4-6.5); Neutrophils % (auto) 53.1 %; Platelet Count 201 K/uL (130-400); RDW Coefficient of Variation 13.8 % (11.5-14.5); RDW Standard Deviation 52.3 fL (36.4-46.3); Red Blood Count 3.64 M/uL (4.2-5.4); White Blood Count 5.69 K/uL (4.8-10.8)
[2021-10-16 03:18] LABS: INR 2.4 (0.9-1.1)
[2021-10-16 03:28] LABS: BUN Creatinine Ratio 16.5 (10-20); Blood Urea Nitrogen 16 mg/dl (7-18); Calcium 8.7 mg/dl (8.5-10.1); Carbon Dioxide 26 mmol/L (21-32); Chloride 113 mmol/L (98-107); Creatinine Clr Calc Pharmacy 31.6 ml/min; Est GFR (Non-African American) 51.8 ml/min; Glucose 101 mg/dl (70-99); Potassium 3.4 mmol/L (3.5-5.1); Sodium 145 mmol/L (136-145)
[2021-10-16 03:43] LABS: Troponin I < 0.015 ng/ml (0-0.045)
[2021-10-16] MEDS ORDERED: FERROUS SULFATE 325 MG TAB PO SCH (08:00)
[2021-10-16] MEDS ORDERED: POTASSIUM CHLORIDE 10 MEQ TABCR PO SCH (09:00)
[2021-10-16] MEDS ORDERED: ESCITALOPRAM OXALATE 20 MG TAB PO SCH (09:00)
--- NOTE | 2021-10-16 09:13 | Cardiology Consultation ---
Date of Consultation October 16, 2021 Assessment & Plan (1) Chest pain: (2) History of DVT (deep vein thrombosis): (3) HTN (hypertension): 89-year-old female presents to the hospital with a transient episode of chest discomfort. ECG without ischemic changes. Cardiac enzymes are negative x2 sets. No dysrhythmia per telemetry. Recommend repeat troponin x1 set. Bedside 2D transthoracic echocardiogram pending at this time. She is chest pain-free overnight. Prior ischemic evaluation including coronary angiogram in 2008 revealing normal coronary arteries and negative dobutamine stress echo in 2012 noted. Continue low-dose beta-tayler therapy. I would not titrate further due to evidence of sinus bradycardia on telemetry. Continue chronic anticoagulation for treatment of deep venous thrombosis. Chart reviewed, no evidence of atrial fibrillation. If third troponin is undetectable and resting bedside 2D transthoracic echocardiogram without regional wall motion abnormality, patient [facility] with [facility]. History of Present Illness Reason for Consultation: Chest pain Requesting Physician: Dr. Brown Attending Physician: Melva Brown, History of Present Illness 89-year-old female presents from [facility] with concerns of chest discomfort. She is hard of hearing and a poor historian. Reports an episode of chest pressure last evening lasting up to 20 minutes. According to records, pain radiated to her back. Admits to associated shortness of breath. She was treated with sublingual nitroglycerin without relief. Pain spontaneously resolved. Feeling well this morning. Lying supine without shortness of breath. Denies any recurrent chest discomfort overnight. Telemetry reveals sinus rhythm and sinus bradycardia. Troponins are negative x2 sets. ECG without ischemic changes. She is chronically anticoagulated with history of DVT. I do not see evidence of prior atrial fibrillation. INR is therapeutic on admission. History of normal coronary arteries per cardiac catheterization in 07/2009. Apparently the cath was performed in the setting of elevated troponin and urosepsis. Patient denies palpitations, syncope, or near syncope. Unable to ambulate. States she uses a wheelchair for mobility. Denies any falls or injuries. No focal weakness, slurred speech, paresthesias, or dysphagia. Allergies Allergy/AdvReac Type Severity Reaction Status Date / Time omeprazole Allergy Unknown distal Verified 05/01/21 14:09 edema-none with pantoprozole Home Medications Medication Instructions Recorded Confirmed Type pantoprazole 40 mg tablet,delayed 40 mg PO QDL #0 12/27/15 10/15/21 History release (Protonix) acetaminophen 325 mg tablet 650 mg PO Q4H PRN #0 MDD 3 01/08/17 10/15/21 History GRAMS/24 HOURS mirtazapine 15 mg tablet 15 mg PO HS #0 tab 01/08/17 10/15/21 History gabapentin 100 mg capsule 100 mg PO HS #0 03/10/18 10/15/21 History ferrous sulfate 325 mg (65 mg 325 mg PO BID 30 Days #60 tab 04/08/18 10/15/21 History iron) tablet alendronate 70 mg tablet 70 mg PO WE 02/24/19 10/15/21 History escitalopram oxalate 20 mg tablet 20 mg PO DAILY 02/24/19 10/15/21 History metoprolol succinate 25 mg 12.5 mg PO QDL 08/08/19 10/15/21 History tablet,extended release 24 hr potassium chloride 10 mEq 10 meq PO DAILY 12/07/19 10/15/21 History tablet,extended release(part/cryst) (Klor-Con M) tramadol 50 mg tablet 50 mg PO Q4H PRN 05/27/20 10/15/21 History silver sulfadiazine 1 % topical 1 applic TOPICAL BID PRN 05/01/21 10/15/21 History cream warfarin 3 mg tablet 3 mg PO UD 05/01/21 10/15/21 History lorazepam 0.5 mg tablet 0.5 mg PO MONTHLY PRN 10/15/21 10/15/21 History warfarin 2.5 mg tablet 2.5 mg PO UD 10/15/21 10/15/21 History Patient History Medical History CAD (coronary artery disease) Chronic pain Depression Depression GERD (gastroesophageal reflux disease) High serum chloride History of DVT (deep vein thrombosis) History of DVT (deep vein thrombosis) HLD (hyperlipidemia) HTN (hypertension) Hypothyroidism Migraines Nephrolithiasis NSTEMI (non-ST elevated myocardial infarction) OAB (overactive bladder) Osteoarthritis Paroxysmal atrial fibrillation Sciatica Supratherapeutic INR Surgical History H/O lithotripsy 05/29/18. LMA #4. H/O total hip arthroplasty History of appendectomy History of cataract surgery History of lumbar surgery History of total hip arthroplasty LEFT History of total knee replacement RIGHT Family History Mother , 70 Pancreatic cancer Father Coronary heart disease Social History Smoking Status: Unknown if ever smoked Second Hand Exposure: No; Hx Alcohol Use: No Hx Substance Use: No Preferred Language: Djiboutian Communication Ability: Effective Tire Fixer Required: No Beliefs That Will Affect Care: None marital status: / Current Living Situation: Personal Care Facility Current Living Situation Comment: [facility] How many Children do You have: 2 Feels Safe at Home: Yes Assistive Devices: Wheelchair Review of Systems Review of Systems: All systems reviewed & are unremarkable except as noted in Subjective Physical Exam Constitutional: + ill appearing and + thin; no acute distress Respiratory: + abnormal respiratory effort, no respiratory distress, no labored breathing and no retractions Auscultation: lungs clear to auscultation bilaterally; breath sounds present, no diminished lung sounds, no crackles, no rales, no rhonchi and no wheezes Cardiovascular: Rate/Rhythm: regular rate and regular rhythm Heart Sounds: normal S1 and normal S2; no gallop, no murmur and no cardiac rub Vessels: radial pulses present; no JVD and no carotid bruit Extremities: no edema Gastrointestinal (Abdomen): Inspection/Auscultation: abdomen normal to inspection and normal bowel sounds; abdomen not distended Percussion/Palpation: abdomen soft; abdomen nontender, no guarding and abdomen not rigid Neurologic: moves all extremities; no focal motor deficits Results & Data ([facility]) Vital Signs (Past 12 Hours) Vital Signs Pulse Resp BP Pulse Ox 10/16/21 06:00 55 L 9 L 102/67 96 10/16/21 05:30 55 L 16 108/60 94 10/16/21 05:00 61 17 108/67 95 10/16/21 04:30 58 L 17 102/67 95 10/16/21 04:00 59 L 20 119/74 95 10/16/21 03:30 59 L 18 113/69 10/16/21 03:00 60 19 125/66 95 10/16/21 02:30 59 L 17 115/65 94 10/16/21 02:00 64 17 100/56 L 96 10/16/21 01:30 62 20 111/61 94 10/16/21 01:00 67 18 111/71 94 10/16/21 00:30 66 18 112/66 92 10/16/21 00:00 68 13 116/75 94 10/15/21 23:30 67 14 115/64 95 10/15/21 23:00 69 19 115/64 94 10/15/21 22:00 67 16 125/66 94 10/15/21 21:30 69 20 123/65 94 (1) Chest pain Chest pain type: unspecified Qualified Code(s): R07.9 - Chest pain, unspecified
[2021-10-16] MEDS ORDERED: PANTOprazole 40 MG TAB PO SCH (11:30)
[2021-10-16] MEDS ORDERED: METOPROLOL SUCC 25MG EXT REL TAB PO SCH (11:30)
--- NOTE | 2021-10-16 13:26 | Discharge Summary ---
Date of Service October 16, 2021 Admission HPI Per Admitting Provider This is an 89 y/o female from [facility] in [place] with paroxysmal atrial fibrillation and history of DVT on Coumadin, nonobstructive CAD, hypertension, CKD III, history of recurrent UTI, urinary incontinence with indwelling catheter, dementia and other medical problems listed below who presents with episode of chest pain. Per notes and report from [facility], pt reports the sudden onset of substernal chest pain and heaviness "like an elephant" on her chest earlier today. However, pt initially reported to the ED that the pain actually started last night. She was given nitro x 2 without relief. There was some question of if her CP was reproducible on exam. When I saw her in the ED, she said that her pain had resolved. She also transiently complained in the ED of trouble breathing but this has also resolved at present per pt. She does c/o of a SUMMERS. It is not clear how reliable of a historian that the patient is. She answered all other ROS questions as "unsure" or "nope" including edema, dizziness, syncope, N/V/D. She apparently does have a hx of nonocclusive CAD and pt reported a history of a "silent heart attack" but was unsure of any other details than that. Admission Exam Per Admitting Provider Constitutional: + thin and + frail appearing; no acute d istress Eyes: PERRL, conjunctivae normal, anicteric sclerae Neck: trachea midline Respiratory: no respiratory distress and no labored breathing Auscultation: lungs clear to auscultation bilaterally; no rales, no rhonchi and no wheezes Cardiovascular: Rate/Rhythm: regular rate and regular rhythm Vessels: radial pulses present Extremities: no calf tenderness and no pedal edema No reproducible chest pain on exam at present Gastrointestinal (Abdomen): Inspection/Auscultation: normal bowel sounds; abdomen not distended Percussion/Palpation: abdomen soft; abdomen nontender Musculoskeletal: Head/Neck/Chest: normal palpation of chest wall Skin: few areas of sporadic ecchymosis on chest and arms Neurologic: moves all extremities Speech / Cognition: normal speech Psychiatric: Orientation: alert, oriented to person and oriented to place; + not oriented to time Principal Diagnosis chest pain depression Discharge Exam CONSTITUTIONAL: elderly, frail, vitals as above, generally well-appearing, NAD EYES: normal conjunctivae, no scleral icterus ENT: external ear and nose normal, MMM NECK: trachea midline, RESPIRATORY: clear to auscultation bilaterally, no crackles, rales or wheezes, normal respiratory effort CARDIOVASCULAR: regular rate and rhythm, S1 and 2 heard without murmurs, gallops or rubs, no JVD, no peripheral edema GASTROINTESTINAL: soft, nontender, ND, no guarding MUSCULOSKELETAL: generalized weakness and physical deconditioning, no gross focal deficits, head is normocephalic and atraumatic, neck supple, normal palpation of chest wall without tenderness SKIN: warm and dry, no rashes NEUROLOGIC: CN 2-12 grossly intact, normal cognition, normal speech, no tremor, no gross focal deficits. PSYCHIATRIC: alert cooperative and oriented to person, place and time. Discharge Data Allergies Allergy/AdvReac Type Severity Reaction Status Date / Time omeprazole Allergy Unknown distal Verified 05/01/21 14:09 edema-none with pantoprozole Consultations 10/15/21 17:32 ED Decision to Admit Stat 10/16/21 01:53 Consult Cardiology Routine Ordered Studies Laboratory Results WBC 5.69 K/uL (4.8-10.8) 10/16/21 03:00 RBC 3.64 M/uL (4.2-5.4) L 10/16/21 03:00 Hgb 12.7 g/dL (12.0-16.0) 10/16/21 03:00 Hct 37.6 % (37-47) 10/16/21 03:00 MCV 103.3 fL (80-100) H 10/16/21 03:00 MCH 34.9 pg (25-34) H 10/16/21 03:00 MCHC 33.8 g/dL (32-36) 10/16/21 03:00 RDW Std Deviation 52.3 fL (36.4-46.3) H 10/16/21 03:00 RDW Coeff of Demetrio 13.8 % (11.5-14.5) 10/16/21 03:00 Plt Count 201 K/uL (130-400) 10/16/21 03:00 MPV 9.4 fL (7.4-10.4) 10/16/21 03:00 Immature Gran % (Auto) 0.2 % 10/16/21 03:00 Neut % (Auto) 53.1 % 10/16/21 03:00 Lymph % (Auto) 33.0 % 10/16/21 03:00 Garrett % (Auto) 7.7 % 10/16/21 03:00 Eos % (Auto) 5.6 % 10/16/21 03:00 Baso % (Auto) 0.4 % 10/16/21 03:00 Neut # (Auto) 3.02 K/uL (1.4-6.5) 10/16/21 03:00 Lymph # (Auto) 1.88 K/uL (1.2-3.4) 10/16/21 03:00 Garrett # (Auto) 0.44 K/uL (0.11-0.59) 10/16/21 03:00 Eos # (Auto) 0.32 K/uL (0-0.5) 10/16/21 03:00 Baso # (Auto) 0.02 K/uL (0-0.2) 10/16/21 03:00 Immature Gran # (Auto) 0.01 K/uL (0.00-0.02) 10/16/21 03:00 PT 23.0 Seconds (9.0-12.0) H 10/16/21 03:00 INR 2.4 (0.9-1.1) H 10/16/21 03:00 APTT 33.1 Seconds (21.0-31.0) H 10/15/21 16:20 PTT Ratio 1.3 10/15/21 16:20 Sodium 145 mmol/L (136-145) 10/16/21 03:00 Potassium 3.4 mmol/L (3.5-5.1) L 10/16/21 03:00 Chloride 113 mmol/L (98-107) H 10/16/21 03:00 Carbon Dioxide 26 mmol/L (21-32) 10/16/21 03:00 Anion Gap 6.0 (3-11) 10/16/21 03:00 BUN 16 mg/dl (7-18) 10/16/21 03:00 Creatinine 0.97 mg/dl (0.6-1.2) 10/16/21 03:00 Est Cr Clr Drug Dosing 31.6 ml/min 10/16/21 03:00 Est GFR ( Amer) 60.0 ml/min 10/16/21 03:00 Est GFR (Non-Af Amer) 51.8 ml/min 10/16/21 03:00 BUN/Creatinine Ratio 16.5 (10-20) 10/16/21 03:00 Glucose 101 mg/dl (70-99) H 10/16/21 03:00 Calcium 8.7 mg/dl (8.5-10.1) 10/16/21 03:00 Total Bilirubin 0.5 mg/dl (0.2-1) 10/15/21 16:20 AST 16 U/L (15-37) 10/15/21 16:20 ALT 18 (12-78) 10/15/21 16:20 Alkaline Phosphatase 85 U/L (45-117) 10/15/21 16:20 Troponin I < 0.015 ng/ml (0-0.045) 10/16/21 08:06 Total Protein 6.9 gm/dl (6.4-8.2) 10/15/21 16:20 Albumin 3.2 gm/dl (3.4-5.0) L 10/15/21 16:20 Globulin 3.7 gm/dl (2.5-4.0) 10/15/21 16:20 Albumin/Globulin Ratio 0.9 (0.9-2) 10/15/21 16:20 Lipase 60 U/L (73-393) L 10/15/21 16:20 SARS-CoV-2, RNA, NAAT NEGATIVE (NEGATIVE) 10/15/21 16:30 Impressions Chest X-Ray 10/15/21 16:14 XR chest 1V portable CLINICAL HISTORY: Atypical chest pain TECHNIQUE: Single frontal radiograph of the chest was obtained. Comparison: Comparison is made to chest one view 12/07/2019 FINDINGS: No lines and tubes are seen. The cardiomediastinal silhouette is normal. The lungs are clear. No evidence of pleural effusion or pneumothorax. IMPRESSION: No acute chest disease. ACT 112: Negative or not required by law. Electronically signed by: Addison Diaz M.D. 10/15/2021 4:42 PM Hospital Course (1) Chest pain: Serial troponin negative overnight x 3 sets. Cardiology evaluated the patient. Her EKG was without ischemic changes. There was no dysrhythmia per telemetry. Bedside transthoracic echocardiogram was performed. Compared to prior study there is no significant change. Ejection fraction is 60 to 65% with left ventricular wall motion that is normal. There is grade 1 diastolic dysfunction noted and trace aortic regurgitation. Aortic valve sclerosis that is mild is noted without significant aortic valvular stenosis. She remained chest pain-free overnight. Prior ischemic evaluation including coronary angiogram in 2008 revealed normal coronary arteries and negative dobutamine stre ss echo in 2012 was noted. She was continued on low dose beta-tayler therapy without further titration due to sinus bradycardia on telemetry. She should continue on chronic anticoagulation for treatment of deep vein thrombosis. (2) CAD (coronary artery disease): (3) History of DVT (deep vein thrombosis): On chronic anticoagulation - continue with target INR of 2.0-3.0 - Continue outpatient warfarin dosing Total Time Total Time Spent Total Time Spent (In Minutes): 60 Discharge Plan Discharge Items Patient Disposition: Transfer Half-Way Fac Reason For Visit: chest pain Discharge Diagnosis: chest pain depression Condition on Discharge: Good Activity: Resume your previous activity Non-emergency contact: Primary Care Provider Call non-emergency contact if: you have any medication questions, your symptoms worsen, your pain is not controlled and your pain is worsening Follow-up/Referrals: MAURICE ESPINOSA [Primary Care Provider] - Diet: Heart Healthy Addtl Attending Provider Instructions: Please take all medications as instructed on discharge list below. You were evaluated by [facility] during your hospital stay. You were not found to have evidence of a heart attack, and there is no further cardiac workup required for investigation of your chest pain. Please follow-up with your primary care provider within one week of discharge from the hospital to ensure you are still doing well. This will also be important to have a conversation regarding your depression, especially with the recent selling off of your possessions and giving away of your home. You would likely benefit from speaking with a mental health provider about this life transition and coping strategies. It was a pleasure taking care of you! Please call if you have any questions or problems. You can reach a [facility] hospitalist on duty at [facility] 24 hours a day by calling [phone]. Take care of yourself. Melva Brown, DO [facility] Hospitalist Pending Studies at Discharge: No Stand-Alone Forms: My [facility] Skilled Items Patient informed of condition?: Yes DNR: No Discharge Level of Care: Skilled Communicable Disease: No Discharge Prognosis: Stable Lines: None Urinary Catheter: No Medications and DC Order Prescriptions: Continued pantoprazole [Protonix] 40 mg Tablet,Delayed Release (Dr/Ec) 40 mg PO QDL Qty: 0 RF: 0 mirtazapine 15 mg Tablet 15 mg PO HS Qty: 0 RF: 0 acetaminophen 325 mg Tablet 650 mg PO Q4H MDD 3 GRAMS/24 HOURS PRN (Reason: Fever Or Pain) Qty: 0 RF: 0 gabapentin 100 mg Capsule 100 mg PO HS Qty: 0 RF: 0 ferrous sulfate 325 mg (65 mg iron) Tablet 325 mg PO BID 30 Days Qty: 60 RF: 3 metoprolol succinate 25 mg tablet extended release 24 hr 12.5 mg PO QDL RF: 0 alendronate 70 mg tablet 70 mg PO WE RF: 0 escitalopram oxalate 20 mg tablet 20 mg PO DAILY RF: 0 potassium chloride [Klor-Con M10] 10 mEq tablet,ER particles/crystals 10 meq PO DAILY RF: 0 tramadol 50 mg tablet 50 mg PO Q4H PRN (Reason: Pain) RF: 0 silver sulfadiazine 1 % Cream 1 applic TOPICAL BID PRN (Reason: Skin Irritation) RF: 0 warfarin 3 mg tablet 3 mg PO UD RF: 0 warfarin 2.5 mg tablet 2.5 mg PO UD RF: 0 lorazepam 0.5 mg tablet 0.5 mg PO MONTHLY PRN (Reason: Anxiety) RF: 0 Discharge Orders: Discharge Order (Routine); Ordered 10/16/21 Ordered By: Melva Brown Admission Data Admit Date/Time: 10/15/21 17:47 Attending Provider: Melva Brown Admit Provider: Melva Brown Primary Care Provider: MAURICE ESPINOSA Other Providers: Melva Brown ; Farshad Oconnor
[2021-10-16] MEDS ORDERED: WARFARIN SOD 2.5 MG TAB PO SCH (16:00)
--- NOTE | 2021-10-17 13:15 | Electrocardiogram Report ---
Test Reason : Blood Pressure : / mmHG Vent. Rate : 070 BPM Atrial Rate : 070 BPM P-R Int : 166 ms QRS Dur : 068 ms QT Int : 420 ms P-R-T Axes : 046 -22 052 degrees QTc Int : 453 ms Poor data quality, interpretation may be adversely affected Normal sinus rhythm Normal ECG When compared with ECG of 01-MAY-2021 11:01, No significant change was found Confirmed by Ken Byrd ([id number]) on 10/17/2021 1:14:50 PM Referred By: Confirmed By:Ken Byrd
--- NOTE | 2021-10-17 13:36 | Electrocardiogram Report ---
Test Reason : Blood Pressure : / mmHG Vent. Rate : 052 BPM Atrial Rate : 052 BPM P-R Int : 220 ms QRS Dur : 060 ms QT Int : 496 ms P-R-T Axes : 049 -09 029 degrees QTc Int : 461 ms Sinus bradycardia with 1st degree A-V block Nonspecific ST abnormality Abnormal ECG When compared with ECG of 15-OCT-2021 16:12, (unconfirmed) UT interval has increased Confirmed by Ken Byrd ([id number]) on 10/17/2021 1:36:24 PM [facility] Confirmed By:Ken Byrd
[2021-10-17] MEDS ORDERED: WARFARIN SOD 3 MG TAB PO SCH (16:00)
== END 2021-10-16 14:00 ==
LOC: ED 16:01 → EDINP 16:01